=== PATIENT | female | born 1970 | race Caucasian/White ===

== ENCOUNTER 2016-09-11 18:20 | Emergency (ER) | payer OTHER ==
[2016-09-11] MEDS ORDERED: NITROGLYCERIN OINT 1 INCH/GM PACKET TOPICAL STA (18:30)
[2016-09-11] MEDS ORDERED: ONDANSETRON 4 MG/2 ML VIAL IVP STA (18:30)
[2016-09-11] MEDS ORDERED: SODIUM CHLORIDE 0.9% 1,000 ML IV STA (18:30)
[2016-09-11] MEDS ORDERED: MORPHINE SULFATE 4 MG/ML SYRINGE IV STA (18:30)
[2016-09-11 18:31] VITALS: TEMP 98.1
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
[2016-09-11 18:45] LABS: Basophils # (A) 0.1 k/uL (0-0.2); Basophils % (A) 1 %; CH 27.8; CHCM 33.6; Eosinophils # (A) 0.2 k/uL (0-0.7); Eosinophils % (A) 2 %; HCT 37.4 % (34.0-46.0); HDW 3.16; HGB 12.2 gm/dL (11.4-16.0); Luc # (Auto) 0.11; Luc % (Auto) 1; Lymphocytes # (A) 1.5 k/uL (1.0-4.8); Lymphocytes % (A) 18 %; MCH 27.2 pg (25.0-35.0); MCHC 32.7 g/dL (31.0-37.0); MCV 83.2 fL (80.0-100.0); Mean Platelet Volume 7.2; Monocytes # (A) 0.4 k/uL (0-1.0); Monocytes % (A) 5 %; Neutrophils % (A) 73 %; RDW 14.1 % (11.5-15.5); WBC 8.2 k/uL (3.8-10.6); WBC (Perox) 8.64
[2016-09-11 18:53] LABS: ALT 40 U/L (9-52); AST 36 U/L (14-36); Alkaline Phosphatase 90 U/L (38-126); Amylase <30 U/L (30-110); Anion Gap 12 mmol/L; Blood Urea Nitrogen 12 mg/dL (7-17); Calcium 9.5 mg/dL (8.4-10.2); Carbon Dioxide 30 mmol/L (22-30); Chloride 99 mmol/L (98-107); Glucose 126 mg/dL (74-99); Magnesium 1.5 mg/dL (1.6-2.3); Non-African American GFR(MDRD) >60 (>60 ml/min/1.73 sqM); Potassium 3.9 mmol/L (3.5-5.1); Sodium 141 mmol/L (137-145); Total Bilirubin 0.6 mg/dL (0.2-1.3)
--- NOTE | 2016-09-11 19:06 | XR ---
EXAMINATION TYPE: XR chest 2V DATE OF EXAM: 09/11/2016 6:54 PM COMPARISON: 04/28/2016 HISTORY: Chest pain TECHNIQUE: Frontal and lateral views of the chest are obtained. FINDINGS: There is no heart failure nor confluent pneumonic infiltrate. Costophrenic angles are sanchez r. There are no hilar masses. Bony thorax is intact. Exam is limited by patient's size. IMPRESSION: No active cardiopulmonary disease. No change.
[2016-09-11 19:07] LABS: Creatine Kinase 43 U/L (30-135)
--- NOTE | 2016-09-11 19:07 | XR ---
EXAMINATION TYPE: XR KUB DATE OF EXAM: 09/11/2016 6:54 PM COMPARISON: NONE HISTORY: Abdominal pain TECHNIQUE: 2 views FINDINGS: Bowel gas pattern is normal. There is no sign of intestinal obstruction or pneumoperitoneum . Fecal pattern is normal. There are clips from cholecystectomy. There is no evidence of a mass. I se e no pathologic calcifications over the kidneys. IMPRESSION: Nonacute abdomen.
[2016-09-11 19:10] LABS: INR 1.1 (<1.1); Prothrombin Time 10.7 sec (9.0-12.0)
[2016-09-11 19:20] LABS: Creatine Kinase MB 0.5 ng/mL (0.0-2.4); Troponin I <0.012 ng/mL (0.000-0.034)
[2016-09-11] MEDS ORDERED: MORPHINE SULFATE 4 MG/ML SYRINGE IVP STA (20:19)
[2016-09-11] MEDS ORDERED: HYDROmorphone 2 MG/ML 1 ML SYRINGE IVP STA (20:36)
[2016-09-11 21:36] VITALS: BP 138/84; PULSE 70; RESP 14
== END 2016-09-11 21:35 | disposition home or self-care (01) ==
LOC: EC 18:20
DX: R07.89 Other chest pain (principal); E66.01 Morbid (severe) obesity due to excess calories; E11.40 Type 2 diabetes mellitus with diabetic neuropathy, unspecified; I10 Essential (primary) hypertension; K21.9 Gastro-esophageal reflux disease without esophagitis; E88.81 Metabolic syndrome and other insulin resistance; F41.0 Panic disorder [episodic paroxysmal anxiety]; F32.9 Major depressive disorder, single episode, unspecified; F41.9 Anxiety disorder, unspecified; Z79.02 Long term (current) use of antithrombotics/antiplatelets; Z79.84 Long term (current) use of oral hypoglycemic drugs; Z79.4 Long term (current) use of insulin; Z79.899 Other long term (current) drug therapy; Z91.041 Radiographic dye allergy status; Z87.891 Personal history of nicotine dependence
CPT/HCPCS: 36415; 93005; 85379; 83880; 80053; 82150; 82550; 82553; 83690; 83735; 84484; 85025; 85610; 85730; 71020; 74000; 99285; 96374; 96375; 96361 ×3; J2270; J2405

== ENCOUNTER 2016-11-06 12:18 | Observation (INO) | payer OTHER ==
[2016-11-06] MEDS ORDERED: LORazepam 2 MG/ML SYRINGE IV STA (13:11)
[2016-11-06] MEDS ORDERED: SODIUM CHLORIDE 0.9% 1,000 ML IV STA ×4 (13:11→17:49)
[2016-11-06] MEDS ORDERED: FAMOTIDINE 20 MG/2 ML VIAL IV STA (13:11)
[2016-11-06] MEDS ORDERED: RX INFO: IV CONTRAST WAS GIVEN 1 EACH MISC MISCELLANE PRN (13:20)
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
[2016-11-06 13:54] LABS: Basophils % (A) 0 %; CH 26.7; CHCM 31.4; Eosinophils % (A) 0 %; HCT 39.7 % (34.0-46.0); HDW 3.03; HGB 12.5 gm/dL (11.4-16.0); Hypochromasia Slight; Luc # (Auto) 0.04; Luc % (Auto) 1; Lymphocytes # (A) 0.5 k/uL (1.0-4.8); Lymphocytes % (A) 8 %; MCH 26.8 pg (25.0-35.0); MCHC 31.4 g/dL (31.0-37.0); MCV 85.4 fL (80.0-100.0); Mean Platelet Volume 6.6; Monocytes # (A) 0.1 k/uL (0-1.0); Monocytes % (A) 2 %; Neutrophils # (A) 5.3 k/uL (1.3-7.7); Neutrophils % (A) 89 %; RBC 4.65 m/uL (3.80-5.40); RDW 14.3 % (11.5-15.5); WBC (Perox) 6.54
[2016-11-06 14:06] LABS: ALT 26 U/L (9-52); AST 27 U/L (14-36); Alkaline Phosphatase 101 U/L (38-126); Anion Gap 15 mmol/L; Blood Urea Nitrogen 14 mg/dL (7-17); Carbon Dioxide 20 mmol/L (22-30); Chloride 101 mmol/L (98-107); Glucose 444 mg/dL (74-99); Magnesium 1.6 mg/dL (1.6-2.3); Non-African American GFR(MDRD) >60 (>60 ml/min/1.73 sqM); Potassium 4.6 mmol/L (3.5-5.1); Sodium 136 mmol/L (137-145); Total Bilirubin 0.6 mg/dL (0.2-1.3); Total Protein 7.4 g/dL (6.3-8.2)
[2016-11-06] MEDS ORDERED: ACETAMINOPHEN IV (For NPO) 1,000 MG in SALINE 100 100ML.BAG IVPB STA (14:13)
[2016-11-06 14:14] LABS: INR 1.1 (<1.1); Prothrombin Time 10.7 sec (9.0-12.0)
[2016-11-06 14:16] LABS: Creatine Kinase 57 U/L (30-135)
[2016-11-06 14:25] LABS: Partial Thromboplastin Time 19.4 sec (22.0-30.0)
--- NOTE | 2016-11-06 14:25 | XR ---
EXAMINATION TYPE: XR chest 2V DATE OF EXAM: 11/06/2016 2:19 PM COMPARISON: 09/11/2016 HISTORY: Chest pain TECHNIQUE: Frontal and lateral views of the chest are obtained. FINDINGS: There is no focal air space opacity, pleural effusion, or pneumothorax seen. The cardiac silhouette size is mildly prominent. The osseous structures are intact. IMPRESSION: No acute cardiopulmonary process.
[2016-11-06 14:29] LABS: Creatine Kinase MB 0.6 ng/mL (0.0-2.4); Troponin I <0.012 ng/mL (0.000-0.034)
--- NOTE | 2016-11-06 15:10 | CT ---
EXAMINATION TYPE: CT ChestAbdPelvis w con DATE OF EXAM: 11/06/2016 2:56 PM COMPARISON: NONE HISTORY: Pelvic pain with history of fibroids. Mid chest pain with right axillary lump. CT DLP: 2246.00 mGycm Automated exposure control for dose reduction was used. CONTRAST: CT scan of the chest, abdomen and pelvis is performed without Oral Contrast and with IV Contrast, pat ient injected with 100 mL of Omnipaque 300. FINDINGS: LUNGS: Groundglass changes are seen in the right upper lobe. No pleural effusion or pneumothorax. MEDIASTINUM: There are no greater than 1 cm hilar or mediastinal lymph nodes. No pericardial effusi on is seen. OTHER: Shotty adenopathy in the axilla bilaterally. LIVER/GB: Previous cholecystectomy noted.. PANCREAS: No significant abnormality is seen. SPLEEN: No significant abnormality is seen. ADRENALS: No significant abnormality is seen. KIDNEYS: No significant abnormality is seen. BOWEL: No significant abnormality is seen. LYMPH NODES: No greater than 1 cm abdominal or pelvic lymph nodes are appreciated. Shotty adenopathy in the peripancreatic region OSSEOUS STRUCTURES: No significant abnormality is seen. OTHER: There is subcutaneous edema correlate for anasarca. There is a degree of lobulation of the [place] sheila. As a small fibroid not excluded. IMPRESSION: 1. Groundglass changes right upper lobe could been the basis of the alveolitis or pneumonitis. 2. Subcutaneous edema is nonspecific. Most marked findings are seen overlying the anterior abdominal wall. Correlate clinically. 3. 2 cm left thyroid nodule
[2016-11-06] MEDS ORDERED: NITROGLYCERIN SL TABS 0.4 MG TAB SUBLINGUAL STA (15:35)
[2016-11-06] MEDS ORDERED: INSULIN LISPRO (humaLOG) 300 UNIT/3 ML VIAL SQ ONE (15:43)
[2016-11-06 15:45] LABS: Glucose,Whole Blood 344 mg/dL (75-99)
[2016-11-06] MEDS ORDERED: HYDROmorphone 1 MG/ML 1 ML SYRINGE IVP STA (16:12)
[2016-11-06 17:30] LABS: Glucose,Whole Blood 272 mg/dL (75-99)
[2016-11-06] MEDS ORDERED: SODIUM CHLORIDE 0.9% 1,000 ML IV ONE (17:44)
[2016-11-06] MEDS ORDERED: HEPARIN SODIUM,PORCINE 5,000 UNIT/ML 1 ML VIAL IV ONE (17:44)
[2016-11-06] MEDS ORDERED: NITROGLYCERIN SL TABS 0.4 MG TAB SUBLINGUAL PRN (17:44)
[2016-11-06] MEDS ORDERED: HEPARIN SODIUM,PORCINE/D5W PMX 25,000 UNIT in DEXTROSE/WATER 1 500ML.BAG IV SCH (17:45)
[2016-11-06] MEDS ORDERED: ASPIRIN 81 MG CHEW PO STA (17:48)
[2016-11-06 20:46] VITALS: BMI 43.2
[2016-11-06 20:51] LABS: Creatine Kinase 51 U/L (30-135)
[2016-11-06 21:04] LABS: Creatine Kinase MB 0.7 ng/mL (0.0-2.4); Troponin I <0.012 ng/mL (0.000-0.034)
[2016-11-06 22:36] LABS: Glucose,Whole Blood 205 mg/dL (75-99)
[2016-11-06] MEDS ORDERED: ONDANSETRON ODT 4 MG TAB PO PRN (22:54)
[2016-11-06] MEDS ORDERED: diphenhydrAMINE 50 MG CAP PO PRN (22:54)
[2016-11-06] MEDS ORDERED: LORATADINE 10 MG TAB PO SCH (23:00)
[2016-11-06] MEDS ORDERED: MELATONIN 3 MG TABLET PO SCH (23:00)
[2016-11-06] MEDS ORDERED: predniSONE 50 MG TAB PO SCH (23:00)
[2016-11-06] MEDS ORDERED: ATENOLOL 50 MG TAB PO SCH (23:00)
[2016-11-06] MEDS ORDERED: MONTELUKAST 10 MG TAB PO SCH (23:00)
[2016-11-06] MEDS: INSULIN LISPRO (humaLOG) 300 UNIT/3 ML VIAL SQ SCH (23:06)
[2016-11-06] MEDS: ATENOLOL 50 MG TAB PO SCH (23:14)
[2016-11-07 03:10] LABS: Cholesterol 242 mg/dL (<200); HDL Cholesterol 37 mg/dL (40-60); Triglycerides 110 mg/dL (<150)
[2016-11-07 03:21] LABS: Creatine Kinase 43 U/L (30-135)
[2016-11-07 03:35] LABS: Creatine Kinase MB 0.6 ng/mL (0.0-2.4); Troponin I <0.012 ng/mL (0.000-0.034)
[2016-11-07 07:21] LABS: Glucose,Whole Blood 153 mg/dL (75-99)
[2016-11-07] MEDS ORDERED: INSULIN REGULAR 100 UNIT/ML VIAL SQ SCH ×3 (07:30→17:30)
[2016-11-07] MEDS ORDERED: NON-FORMULARY DRUG (Metformin Hcl Er 500 MG) PO SCH (07:30)
--- NOTE | 2016-11-07 08:31 | CONS ---
DATE OF CONSULTATION: Mrs. Andrade is a 46-year-old female who presented with what was thought to be a reaction to a CAT scan. Patient was scheduled to undergo an abdominal CAT scan, received prednisone, had the CAT scan but then subsequently started to have episode of palpitation, dizziness, dyspnea, as well as chest discomfort. She was brought into the emergency room and subsequently admitted. At the time of my evaluation, she is feeling better. The chest discomfort and the palpitations have resolved. Patient had prior episode of chest discomfort on and off and had stress testing that were normal but because of persistent symptoms in February 2015, she underwent cardiac catheterization that revealed no evidence of obstructive coronary artery disease. Patient is not very active physically, but has some dyspnea on exertion. No syncope. No significant peripheral edema. No PND. No orthopnea. She has palpitation at times. Her last echocardiogram performed in December 2015 revealed a preserved left ventricular size and systolic function. Her coronary risk factors are positive for history of hypertension, diabetes and hyperlipidemia, and a family history of coronary artery disease. Her medications at home include: 1. Requip. 2. Glucophage. 3. Carafate. 4. Actos. 5. Singulair. 6. Robaxin. 7. Losartan 25 mg daily. 8. Insulin. 9. Neurontin. 10. Cymbalta. 11. Plavix. 12. Tenormin 50 mg twice a day. REVIEW OF SYSTEMS: RESPIRATORY SYSTEM: She has some dyspnea on exertion. No recent wheezing. No cough. GI: No recent GI bleeding. She has some abdominal discomfort and that is why she underwent a CAT scan. system: No dysuria or hematuria. Nervous system: Questionable history of TIA. PHYSICAL EXAMINATION: She is a 46-year-old female, alert, oriented, obese. No apparent distress. Blood pressure 138/72 with a heart in the 80s. HEAD: Normocephalic. EYES: Sclerae anicteric. NECK: Good upstroke. No bruit. No jugular venous distention. LUNGS: Clear to auscultation. HEART: Regular rate and rhythm. S1, S2, no S3, no S4, no murmur or rub. ABDOMEN: Soft, nontender, positive bowel sounds. No organomegaly. EXTREMITIES: No edema. Intact distal pulses. LAB DATA: EKG revealed sinus mechanism, normal axis and intervals. Normal electrocardiogram. The patient had sinus tachycardia in the emergency room. Lab data revealed cholesterol of 242, LDL of 183. Troponin less than 0.012. BUN and creatinine of 14 and 0.81. Potassium 4.6. Hemoglobin A1c of 9.0. Hemoglobin of 12.5. IMPRESSION: 1. Her chest discomfort, atypical for ischemic heart disease; appears to be noncardiac. 2. Palpitation. Could be related to the injection, although no significant abnormalities noted. 3. Hypertension. 4. Hyperlipidemia not treated. 5. Diabetes mellitus. 6. Obesity. RECOMMENDATION: From the cardiac standpoint, I will stop the heparin I will initiate treatment with a statin, continue medical regimen. From the cardiac standpoint, she does not take any further cardiac work-up. We will see her on as needed basis. Please feel free to call us for any questions.
[2016-11-07] MEDS ORDERED: GABAPENTIN 400 MG CAP PO SCH (09:00)
[2016-11-07] MEDS ORDERED: ASPIRIN 325 MG TAB PO SCH (09:00)
[2016-11-07] MEDS ORDERED: CLOPIDOGREL 75 MG TAB PO SCH (09:00)
[2016-11-07] MEDS ORDERED: PIOGLITAZONE 30 MG TAB PO SCH (09:00)
[2016-11-07] MEDS ORDERED: ATORVASTATIN 40 MG TAB PO SCH (09:00)
[2016-11-07] MEDS ORDERED: SUCRALFATE 1 GM TAB PO SCH (09:00)
[2016-11-07] MEDS ORDERED: DULoxetine HCL 60 MG CAPSULE.DR PO SCH (09:00)
[2016-11-07] MEDS ORDERED: FAMOTIDINE 20 MG TAB PO SCH (09:00)
[2016-11-07] MEDS ORDERED: LORazepam 1 MG TAB PO SCH (09:00)
[2016-11-07] MEDS ORDERED: DICYCLOMINE 10 MG CAP PO SCH (09:00)
[2016-11-07] MEDS ORDERED: LOSARTAN 25 MG TAB PO SCH (09:00)
[2016-11-07] MEDS ORDERED: METHOCARBAMOL 500 MG TAB PO SCH (09:00)
[2016-11-07] MEDS: ATENOLOL 50 MG TAB PO SCH (09:05)
[2016-11-07] MEDS: INSULIN LISPRO (humaLOG) 300 UNIT/3 ML VIAL SQ SCH ×2 (09:08→12:37)
[2016-11-07 11:52] LABS: Glucose,Whole Blood 212 mg/dL (75-99)
[2016-11-07 12:39] VITALS: BP 108/69; PULSE 68; RESP 16; TEMP 97.5
--- NOTE | 2016-11-07 15:49 | P.HPIM ---
History of Present Illness H&P Date: 11/07/16 Chief Complaint: palpitations and chest pain this would be both an H&P and discharge summary This is a pleasant 46-year-old lady patient of Dr. Langley, Dr. Chang , S/P Kiran, she has underlying history of diabetes mellitus type 2, hypertension, hyperlipidemia, GERD obstructive sleep apnea admitted to the hospital secondary to palpitations and chest pain dizziness. Patient underwent CAT scan of the abdomen and pelvis to evaluate an abdominal mass as found by her METAL SORTER, she required premedication to include Benadryl and prednisone, she was brought into the emergency room after she complained of having chest pain palpitations dizziness and chest discomfort. Upon seeing the ER physician. Patient has all the symptoms resolved, however due to her risk she was admitted to evaluate for unstable angina with cardiology consultation. She had a previous stress test in 2014 that was normal she also underwent a cardiac cath at that time which shows no coronary obstructive disease She'll be seen by Dr. Chang during her observation stay here in the emergency room her blood sugarwas 444, ketones negative, CO2 of 20, this is after on his own dosing was initiated, she had completed a CAT scan of the abdomen and pelvis for the procedure as requested by her METAL SORTER. Hemoglobin A1c of 9.0 Review of Systems Constitutional: Reports as per HPI, Denies anorexia, Denies chills, Denies chronic headaches, Denies chronic pain, Denies daytime sleepiness, Denies fatigue, Denies fever, Denies lethargy, Denies malaise, Denies night sweats, Denies poor appetite, Denies sweats, Denies weakness, Denies weight gain, Denies weight loss Ears, nose, mouth and throat: Reports as per HPI, Denies ant. neck pain, Denies bleeding gums, Denies dental pain, Denies dysphagia, Denies epistaxis, Denies headache, Denies hoarseness, Denies mouth pain, Denies nasal congestion, Denies nasal discharge, Denies neck fullness/pressure, Denies neck lump, Denies nose pain, Denies odynophagia, Denies post-nasal drip, Denies sinus pain, Denies sinus pressure, Denies swelling in mouth, Denies swelling in throat, Denies sore throat, Denies vertigo, Denies voice changes Cardiovascular: Reports as per HPI, Reports chest pain, Reports palpitations, Denies claudication, Denies decreased exercise tolerance, Denies dyspnea on exertion, Denies edema, Denies high blood pressure, Denies irregular heart beat , Denies leg edema, Denies lightheadedness, Denies orthopnea, Denies paroxysmal nocturnal dyspnea, Denies phlebitis, Denies rapid heart beat, Denies shortness of breath, Denies syncope Respiratory: Reports as per HPI, Denies congestion, Denies cough, Denies cough with sputum, Denies dyspnea, Denies excessive sputum, Denies hemoptysis, Denies home oxygen, Denies pain, Denies pain on inspiration, Denies pleurisy, Denies respiratory infections, Denies sleep apnea, Denies snoring, Denies wheezing Gastrointestinal: Reports as per HPI, Denies abdominal pain, Denies belching, Denies bloating, Denies BRBPR, Denies change in bowel habits, Denies coffee ground emesis, Denies constipation, Denies diarrhea, Denies dyspepsia, Denies early satiety, Denies excessive gas, Denies heartburn, Denies hematemesis, Denies hematochezia, Denies indigestion, Denies jaundice, Denies lactose intolerance, Denies loss of appetite, Denies melena, Denies nausea, Denies vomiting Genitourinary: Reports as per HPI, Denies abnormal vaginal bleeding, Denies decreased libido, Denies difficulty conceiving, Denies difficulty voiding, Denies dysmenorrhea, Denies dyspareunia, Denies dysuria, Denies flank pain, Denies genital sores, Denies hematuria, Denies hot flashes, Denies incomplete emptying, Denies kidney stones, Denies menorrhagia, Denies mixed incontinence, Denies nocturia, Denies pelvic pain, Denies post void dribbling, Denies , Denies prolapse symptoms, Denies stress incontinence, Denies urge incontinence , Denies urgency, Denies urinary frequency, Denies vaginal discharge, Denies vaginal dryness, Denies vaginal itching, Denies vaginal odor Menstruation: Reports as per HPI, Denies amenorrhea, Denies amenorrhea on BC, Denies currently menstrual, Denies cycle < 21 days, Denies cycle > 35 days, Denies cycle variable, Denies menses 1-7 days, Denies menses 8 or > days, Denies menses variable, Denies period heavy, Denies period light, Denies period normal, Denies period spotting, Denies post hysterectomy, Denies postmenopausal , Denies premenarcheal Musculoskeletal: Reports as per HPI, Denies arm numbness/tingling, Denies atrophy, Denies fractures, Denies frequent falls, Denies gait dysfunction, Denies hot joints, Denies leg numbness/tingling, Denies limitation of motion, Denies loss of height, Denies low back pain, Denies morning stiffness, Denies muscle cramps, Denies muscle weakness, Denies myalgias, Denies neck pain, Denies neck stiffness, Denies prior amputations, Denies redness of joints, Denies shooting arm pain, Denies shooting leg pain Integumentary: Reports as per HPI, Denies acne, Denies boils, Denies brittle nails, Denies change in hair/nails, Denies color changes, Denies darkening of skin, Denies depigmentation, Denies dryness, Denies foot/leg ulcers, Denies growths, Denies hirsutism, Denies lesions, Denies onychomycosis, Denies pruritus , Denies rash, Denies sores, Denies striae, Denies unusual bruising, Denies wounds Neurological: Reports as per HPI, Denies aphasia, Denies ataxia, Denies balance difficulties, Denies burning pain, Denies change in mentation, Denies change in smell/taste, Denies change in speech, Denies confusion, Denies convulsions, Denies double vision, Denies gait dysfunction, Denies head injury, Denies headaches, Denies hearing difficulties, Denies lack of coordination, Denies loss of vision, Denies memory loss, Denies migraines, Denies motor disturbance, Denies numbness, Denies paralysis, Denies paresthesias, Denies seizures, Denies sensory deficit, Denies spasticity, Denies syncope, Denies tic, Denies tingling , Denies transient paralysis, Denies tremors, Denies vertigo, Denies weakness, Denies visual changes Psychiatric: Reports as per HPI, Denies anhedonia, Denies anxiety, Denies anxiety attacks, Denies change in appetite, Denies change in libido, Denies change in sleep habits, Denies confusion, Denies depression, Denies difficulty concentrating, Denies disorientation, Denies hallucinations, Denies hopelessness , Denies hypersomnia, Denies insomnia, Denies irritability, Denies memory loss, Denies mood swings, Denies paranoia, Denies sadness/tearfulness, Denies sleep disturbances, Denies suicidal ideation Endocrine: Reports as per HPI, Denies cold intolerance, Denies deepening of the voice, Denies excessive sweating, Denies excessive thirst, Denies fatigue, Denies flushing, Denies heat intolerance, Denies high blood sugars, Denies increase in ring/shoe/hat size, Denies low blood sugars, Denies nocturia, Denies palpitations, Denies polydipsia, Denies polyphagia, Denies polyuria, Denies proptosis, Denies recent glucocorticoid use, Denies thyroid mass, Denies weight change Hematologic/Lymphatic: Reports as per HPI, Denies easy bleeding, Denies easy bruising, Denies lymphadenopathy, Denies lymphedema, Denies thrombophilia Allergic/Immunologic: Reports as per HPI, Denies allergic rhinitis, Denies anaphylaxis, Denies angioedema, Denies gluten intolerance, Denies persistent infections, Denies seasonal allergies, Denies urticaria, Denies wheezing Past Medical History Past Medical History: Diabetes Mellitus, GERD/Reflux, Hyperlipidemia, Hypertension, Neurologic Disorder, Sleep Apnea/CPAP/BIPAP, Syncope Additional Past Medical History / Comment(s): " lt warped cornea", recurrant c/p ,uti's. Psoriasis, neuropathy, DDD, bursitis left hip, fractured left knee, IBS , diabetic retinopathy, duodenal ulcer, migraines, chronic back pain," ringing in ears", intermittent blurry vision" History of Any Multi-Drug Resistant Organisms: None Reported Past Surgical History: Adenoidectomy, Cholecystectomy, Tonsillectomy Additional Past Surgical History / Comment(s): endoscopy, colonoscopy, D&C, carpal tunnel surgery left arm, LT ARM SX FOR "PINCHED NERVE", LT THUMB TRIGGER FINGER. Past Anesthesia/Blood Transfusion Reactions: No Reported Reaction Additional Past Anesthesia/Blood Transfusion Reaction / Comment(s): difficulty waking from aa Past Psychological History: Anxiety, Depression, Panic Disorder Additional Psychological History / Comment(s): PT STATED LIVES IN AN APT W/ 3 DOGS, 1 CAT, HAS 4 STEPS TO GET UP TO [employer] IN APT. 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 PT HAS A WALKWE, CPAP MACHINE A NEW RAISED TOILET/RALES. 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 Smoking Status: Former smoker Past Alcohol Use History: Occasional Additional Past Alcohol Use History / Comment(s): started smoking at age 13 smoked 1/2 ppd, quit in the early Past Drug Use History: Marijuana Additional Drug Use History / Comment(s): when younger smoked marijuana-none since the - Past Family History Father Family Medical History: Cancer, Congestive Heart Failure (CHF), CVA/TIA, Hypertension, Syncope Additional Family Medical History / Comment(s): 1992 Mother Family Medical History: Diabetes Mellitus, Hypertension, Osteoarthritis (OA) Additional Family Medical History / Comment(s): MURMUR Sister(s) Family Medical History: Diabetes Mellitus, Hypertension Additional Family Medical History / Comment(s): Depression Medications and Allergies Home Medications Medication Instructions Recorded Confirmed Type Ranitidine HCl 150 mg PO BID 04/26/15 11/14/16 History Loratadine [Claritin] 10 mg PO HS 12/18/15 11/14/16 History DULoxetine HCL [Cymbalta] 60 mg PO DAILY 04/28/16 11/14/16 History Insulin Regular [humuLIN R] 12 units SQ W/SUPPER 04/28/16 11/14/16 History Insulin Regular [humuLIN R] 14 units SQ W/BRKFST 04/28/16 11/14/16 History Insulin Regular [humuLIN R] 14 units SQ W/LUNCH 04/28/16 11/14/16 History Losartan [Cozaar] 25 mg PO DAILY 04/28/16 11/14/16 History Sucralfate [Carafate] 1 gm PO QID 04/28/16 11/14/16 History metFORMIN HCL ER [Glucophage Xr] 500 mg PO AC-BRKFST 04/28/16 11/14/16 History Atenolol [Tenormin] 50 mg PO BID 09/11/16 11/14/16 History Gabapentin [Neurontin] 400 mg PO TID 09/11/16 11/14/16 History LORazepam [Ativan] 2 mg PO BID 09/11/16 11/14/16 History Melatonin 3 mg PO HS 09/11/16 11/14/16 History Montelukast [Singulair] 10 mg PO HS 09/11/16 11/14/16 History Ondansetron Odt [Zofran ODT] 4 mg PO Q12H PRN 09/11/16 11/14/16 History metFORMIN HCL ER [Glucophage Xr] 1,000 mg PO PC-SUPPER 09/11/16 11/14/16 History Dicyclomine HCl 10 mg PO DAILY 11/06/16 11/14/16 History Fluticasone Nasal [place] [Flonase 1 spray EA NOSTRIL HS 11/06/16 11/14/16 History Nasal [place]] Methocarbamol [Robaxin] 500 mg PO QID 11/06/16 11/14/16 History Pioglitazone HCl [Actos] 30 mg PO DAILY 11/06/16 11/14/16 History Azithromycin [Zithromax Z-pack] See Taper PO DIRECTED 11/14/16 11/14/16 History Beclomethasone Dipropionate [Qvar 1 puff INHALATION RT-DAILY 11/14/16 11/14/16 History 40 mcg] Allergies Allergy/AdvReac Type Severity Reaction Status Date / Time Iodinated Contrast Media - Allergy Itching Verified 11/14/16 19:09 Oral and [Iodinated Contrast Media - IV Dye] iodine Allergy Rash/Hives, Verified 11/14/16 19:09 ITCHING prednisone Allergy Rapid Verified 11/14/16 19:14 Heart Rate celecoxib [From Celebrex] AdvReac CAUSES GI Verified 11/14/16 19:09 BLEEDING cephalexin monohydrate AdvReac Vomiting Verified 11/14/16 19:09 [From Keflex] hydrocodone AdvReac Nausea & Verified 11/14/16 19:09 Vomiting Penicillins AdvReac Nausea & Verified 11/14/16 19:09 Vomiting Physical Exam Vitals: Vital Signs Temp Pulse Pulse Resp BP Pulse Ox 11/07/16 08:00 97.6 F 75 18 111/80 100 11/07/16 05:35 77 16 11/07/16 04:00 98 F 80 16 138/78 100 11/07/16 00:13 99 16 11/07/16 00:00 97.8 F 86 16 143/76 100 11/06/16 23:41 98 11/06/16 19:20 98.2 F 140 H 16 183/99 98 Intake and Output 11/06/16 11/07/16 11/07/16 22:59 06:59 14:59 Intake Total 212.333 Balance 212.333 Intake: Intake, IV Titration 212.333 Amount Heparin Sodium,Porcine/ 212.333 D5w Pmx 25,000 unit In Dextrose/Water 1 500ml. bag @ 8.749 UNITS/KG/HR 20 mls/hr IV .Q24H [facility] Rx #:[id number] Other: Voiding Method Toilet Toilet # Voids 1 Weight 114.31 kg 114.31 kg Patient Weight 11/08/16 06:59 Weight 114.31 kg - Constitutional General appearance: cooperative, no acute distress - EENT Eyes: anicteric sclerae, PERRLA ENT: hearing grossly normal, NA/AT, normal oropharynx Ears: bilateral: normal, negative: bulging, bullous, dull - Neck Neck: no lymphadenopathy, normal ROM, no other, no rigidity, no stridor, no thyromegaly Carotids: bilateral: upstroke normal, negative: upstroke delayed, upstroke diminished, upstroke bounding, bruit absent, bruit present Thyroid: bilateral: normal size - Respiratory Respiratory: bilateral: CTA, negative: diminished, dullness, rales, rhonchi - Cardiovascular Rhythm: regular Heart sounds: normal: S1, S2 - Gastrointestinal General gastrointestinal: no absent bowel sounds, no decreased bowel sounds, no distended, no hepatomegaly, no hyperactive bowel sounds, normal bowel sounds, no organomegaly, no rigid, no scaphoid, soft, no splenomegaly, no tenderness, no umbilical hernia, no ventral hernia - Integumentary Integumentary: normal, normal turgor - Neurologic Neurologic: CNII-XII intact - Musculoskeletal Musculoskeletal: gait normal, strength equal bilaterally - Psychiatric Psychiatric: A&O x's 3, appropriate affect, intact judgment & insight Results CBC & Chem 7: 11/06/16 13:34 11/06/16 13:34 Labs: Abnormal Lab Results - Last 24 Hours (Table) 11/06/16 11/07/16 11/07/16 Range/Units 22:34 02:19 07:09 POC Glucose (mg/dL) 205 H 153 H (75-99) mg/dL Cholesterol 242 H (<200) mg/dL LDL Cholesterol, Calc 183 H (0-99) mg/dL HDL Cholesterol 37 L (40-60) mg/dL 11/07/16 Range/Units 11:51 POC Glucose (mg/dL) 212 H (75-99) mg/dL Cholesterol (<200) mg/dL LDL Cholesterol, Calc (0-99) mg/dL HDL Cholesterol (40-60) mg/dL Laboratory Results WBC 6.0 k/uL (3.8-10.6) 11/06/16 13:34 RBC 4.65 m/uL (3.80-5.40) 11/06/16 13:34 Hgb 12.5 gm/dL (11.4-16.0) 11/06/16 13:34 Hct 39.7 % (34.0-46.0) 11/06/16 13:34 MCV 85.4 fL (80.0-100.0) 11/06/16 13:34 MCH 26.8 pg (25.0-35.0) 11/06/16 13:34 MCHC 31.4 g/dL (31.0-37.0) 11/06/16 13:34 RDW 14.3 % (11.5-15.5) 11/06/16 13:34 Plt Count 202 k/uL (150-450) 11/06/16 13:34 Neutrophils % 89 % 11/06/16 13:34 Lymphocytes % 8 % 11/06/16 13:34 Monocytes % 2 % 11/06/16 13:34 Eosinophils % 0 % 11/06/16 13:34 Basophils % 0 % 11/06/16 13:34 Neutrophils # 5.3 k/uL (1.3-7.7) 11/06/16 13:34 Lymphocytes # 0.5 k/uL (1.0-4.8) L 11/06/16 13:34 Monocytes # 0.1 k/uL (0-1.0) 11/06/16 13:34 Eosinophils # 0.0 k/uL (0-0.7) 11/06/16 13:34 Basophils # 0.0 k/uL (0-0.2) 11/06/16 13:34 Hypochromasia Slight 11/06/16 13:34 PT 10.7 sec (9.0-12.0) 11/06/16 13:34 INR 1.1 (<1.1) 11/06/16 13:34 APTT 28.5 sec (22.0-30.0) 11/07/16 02:19 Sodium 136 mmol/L (137-145) L 11/06/16 13:34 Potassium 4.6 mmol/L (3.5-5.1) 11/06/16 13:34 Chloride 101 mmol/L (98-107) 11/06/16 13:34 Carbon Dioxide 20 mmol/L (22-30) L 11/06/16 13:34 Anion Gap 15 mmol/L 11/06/16 13:34 BUN 14 mg/dL (7-17) 11/06/16 13:34 Creatinine 0.81 mg/dL (0.52-1.04) 11/06/16 13:34 Est GFR (MDRD) Af Amer >60 (>60 ml/min/1.73 sqM) 11/06/16 13:34 Est GFR (MDRD) Non-Af >60 (>60 ml/min/1.73 sqM) 11/06/16 13:34 Glucose 444 mg/dL (74-99) H 11/06/16 13:34 POC Glucose (mg/dL) 212 mg/dL (75-99) H 11/07/16 11:51 POC Glu Wire Mesh Filter Fabricator JENNIFER Cholo Pruittn 11/07/16 11:[address] Glu mg/dL 212 mg/dL 11/06/16 13:34 Hemoglobin A1c 9.0 % (4.2-6.1) H 11/06/16 13:34 Calcium 9.0 mg/dL (8.4-10.2) 11/06/16 13:34 Magnesium 1.6 mg/dL (1.6-2.3) 11/06/16 13:34 Total Bilirubin 0.6 mg/dL (0.2-1.3) 11/06/16 13:34 AST 27 U/L (14-36) 11/06/16 13:34 ALT 26 U/L (9-52) 11/06/16 13:34 Alkaline Phosphatase 101 U/L (38-126) 11/06/16 13:34 Total Creatine Kinase 43 U/L (30-135) 11/07/16 02:19 CK-MB (CK-2) 0.6 ng/mL (0.0-2.4) 11/07/16 02:19 CK-MB (CK-2) Rel Index 1.4 11/07/16 02:19 Troponin I <0.012 ng/mL (0.000-0.034) 11/07/16 02:19 Total Protein 7.4 g/dL (6.3-8.2) 11/06/16 13:34 Albumin 4.0 g/dL (3.5-5.0) 11/06/16 13:34 Triglycerides 110 mg/dL (<150) 11/07/16 02:19 Cholesterol 242 mg/dL (<200) H 11/07/16 02:19 LDL Cholesterol, Calc 183 mg/dL (0-99) H 11/07/16 02:19 HDL Cholesterol 37 mg/dL (40-60) L 11/07/16 02:19 TSH 0.395 mIU/L (0.465-4.680) L 11/06/16 13:34 Free T4 1.30 ng/dL (0.78-2.19) 11/06/16 13:34 Thrombosis Risk Factor Assmnt - DVT/VTE Prophylaxis DVT/VTE Prophylaxis: Mechanical Prophylaxis ordered Assessment and Plan Plan: atypical chest pain with palpitations, most likely secondary to premedication prednisone and Benadryl as well as the hyperglycemia that occurred using the prednisone dose, patient's symptoms has improved patient was seen consultation by cardiology. Troponins 3 were negative,. She was seen in consultation by cardiology for which statins were initiated for her medical regimen, no additional cardiac testing was requested at this timecontinue Plavix Lipitor Tenorminaspirin 2. Hyperosmolar nonketotic hyperglycemia related to prednisone dosing for premedications without the necessary adjustment for her insulin made by her PCP , patient's sugar has improved and stabilized,she required her home dosing with NovoLog correctional scale shins appetite is at baseline patient will be discharged with her regulainsulin regimen, blood sugar and discharge was 212, hemoglobin A1c 9.0r 3. Uncontrolled diabetes mellitus type 2, patient was counseled regarding dietary modification and is to talk to her adjustments of her regimen for sugarscontinue Actos metformin NovoLog pre-meal 14 units breakfast 14 units lunch 17 units supper, 4. Metabolicacidosis, mild most likely secondary to the hyperglycemia, this has stabilized and improvedno ketones 4. Hypertension on cozaar tenormin 5. GERD on chronic ranitidineor Carafate 6.pneumonitis incidentally noted on CAT scan patient sees Dr. Vásquez/P Kiran, continue Singulair 7depression and anxiety on Cymbalta Ativan 8. BMI 43 Discharge Medication List Ranitidine HCl 150 mg PO BID 04/26/15 [History] Clopidogrel [Plavix] 75 mg PO DAILY #30 tab 06/29/15 [Rx] Loratadine [Claritin] 10 mg PO HS 12/18/15 [History] DULoxetine HCL [Cymbalta] 60 mg PO DAILY 04/28/16 [History] Insulin Regular [humuLIN R] 14 units SQ W/BRKFST 04/28/16 [History] Insulin Regular [humuLIN R] 14 units SQ W/LUNCH 04/28/16 [History] Insulin Regular [humuLIN R] 17 units SQ W/SUPPER 04/28/16 [History] Losartan [Cozaar] 25 mg PO DAILY 04/28/16 [History] Sucralfate [Carafate] 1 gm PO QID 04/28/16 [History] metFORMIN HCL ER [Glucophage Xr] 500 mg PO AC-BRKFST 04/28/16 [History] Atenolol [Tenormin] 50 mg PO BID 09/11/16 [History] Gabapentin [Neurontin] 400 mg PO TID 09/11/16 [History] LORazepam [Ativan] 2 mg PO BID 09/11/16 [History] Melatonin 3 mg PO HS 09/11/16 [History] Montelukast [Singulair] 10 mg PO HS 09/11/16 [History] Ondansetron Odt [Zofran ODT] 4 mg PO Q12H PRN 09/11/16 [History] metFORMIN HCL ER [Glucophage Xr] 1,000 mg PO PC-SUPPER 09/11/16 [History] Dicyclomine HCl 10 mg PO DAILY 11/06/16 [History] Fluticasone Nasal [place] [Flonase Nasal [place]] 1 spray EA NOSTRIL HS 11/06/16 [ History] Methocarbamol [Robaxin] 500 mg PO QID 11/06/16 [History] Pioglitazone HCl [Actos] 30 mg PO DAILY 11/06/16 [History] Aspirin EC [Ecotrin Low Dose] 81 mg PO DAILY #30 tablet. 11/07/16 [Rx] Atenolol [Tenormin] 50 mg PO BID #60 tab 11/07/16 [Rx] Atorvastatin [Lipitor] 40 mg PO DAILY #39 tab 11/07/16 [Rx]
[2016-11-07] MEDS ORDERED: METFORMIN HCL 1000 MG PO SCH (18:30)
[2016-11-07] MEDS ORDERED: FLUTICASONE 50MCG/SPRAY NASAL 16GM EA NOSTRIL SCH (21:00)
== END 2016-11-07 14:11 | disposition home or self-care (01) ==
LOC: EC 12:18 → 3OBS 17:43
PROVIDERS: ADMIT Family Medicine; ATTEND Family Medicine
DX: R07.89 Other chest pain (principal); R00.2 Palpitations; T38.0X5A Adverse effect of glucocorticoids and synthetic analogues, initial encounter; E11.65 Type 2 diabetes mellitus with hyperglycemia; E87.2 Acidosis; I10 Essential (primary) hypertension; K21.9 Gastro-esophageal reflux disease without esophagitis; J18.9 Pneumonia, unspecified organism; F32.9 Major depressive disorder, single episode, unspecified; F41.9 Anxiety disorder, unspecified; E04.1 Nontoxic single thyroid nodule; E11.319 Type 2 diabetes mellitus with unspecified diabetic retinopathy without macular edema; E66.9 Obesity, unspecified; E78.5 Hyperlipidemia, unspecified; F41.0 Panic disorder [episodic paroxysmal anxiety]; K58.9 Irritable bowel syndrome, unspecified; Z68.41 Body mass index [BMI] 40.0-44.9, adult; Z79.4 Long term (current) use of insulin; Z79.84 Long term (current) use of oral hypoglycemic drugs; Z79.899 Other long term (current) drug therapy; Z82.49 Family history of ischemic heart disease and other diseases of the circulatory system; Z87.11 Personal history of peptic ulcer disease; Z87.891 Personal history of nicotine dependence; Z91.041 Radiographic dye allergy status; R51 Headache; Z79.52 Long term (current) use of systemic steroids; R00.0 Tachycardia, unspecified
CPT/HCPCS: 36415; 93005; 84439; 80061; 80053; 84443; 83036; 82550 ×2; 82553 ×2; 83735; 84484 ×2; 85025; 85610; 85730 ×2; 71020; 71260; 74177; 99291; 96365; 96375; 96376; 96361; G0378 ×2; J2060; J1644 ×2; J1170; Q9967; J0131; 96366; 96367

== ENCOUNTER 2016-11-14 17:55 | Emergency (ER) | payer OTHER ==
[2016-11-14] MEDS ORDERED: MAGNESIUM SULFATE-D5W PMX 1 GM in DEXTROSE/WATER 1 100ML.BAG IVPB STA (18:02)
--- NOTE | 2016-11-14 18:08 | ED ---
SOB HPI - General Source: patient, EMS, RN notes reviewed, old records reviewed Mode of arrival: EMS Limitations: no limitations - History of Present Illness MD Complaint: shortness of breath, cough <Clifford Rene - Last Filed: 11/14/16 18:47> <Narendra Gamino - Last Filed: 11/14/16 22:05> - General Chief Complaint: Shortness of Breath Stated Complaint: SANTOS Time Seen by Provider: 11/14/16 17:55 - History of Present Illness Initial Comments: This is a 46-year-old female who states she was just discharged from the hospital week ago to being treated for pneumonia who states she's had shortness of breath is got progressively worse over last 3 days. She states she has some fevers and sweats. No definite chills EMS was finally called prior to arrival she was very dyspneic she did respond somewhat to 2 albuterol treatments. She has a cough but no definite phlegm production. No other complaints such as chest pain or abdominal pain at this time. She states she is not a smoker (Clifford Rene) - Related Data Home Medications Medication Instructions Recorded Confirmed Ranitidine HCl 150 mg PO BID 04/26/15 11/14/16 Loratadine [Claritin] 10 mg PO HS 12/18/15 11/14/16 DULoxetine HCL [Cymbalta] 60 mg PO DAILY 04/28/16 11/14/16 Insulin Regular [humuLIN R] 12 units SQ W/SUPPER 04/28/16 11/14/16 Insulin Regular [humuLIN R] 14 units SQ W/BRKFST 04/28/16 11/14/16 Insulin Regular [humuLIN R] 14 units SQ W/LUNCH 04/28/16 11/14/16 Losartan [Cozaar] 25 mg PO DAILY 04/28/16 11/14/16 Sucralfate [Carafate] 1 gm PO QID 04/28/16 11/14/16 metFORMIN HCL ER [Glucophage Xr] 500 mg PO AC-BRKFST 04/28/16 11/14/16 Atenolol [Tenormin] 50 mg PO BID 09/11/16 11/14/16 Gabapentin [Neurontin] 400 mg PO TID 09/11/16 11/14/16 LORazepam [Ativan] 2 mg PO BID 09/11/16 11/14/16 Melatonin 3 mg PO HS 09/11/16 11/14/16 Montelukast [Singulair] 10 mg PO HS 09/11/16 11/14/16 Ondansetron Odt [Zofran ODT] 4 mg PO Q12H PRN 09/11/16 11/14/16 metFORMIN HCL ER [Glucophage Xr] 1,000 mg PO PC-SUPPER 09/11/16 11/14/16 Dicyclomine HCl 10 mg PO DAILY 11/06/16 11/14/16 Fluticasone Nasal Climax [Flonase 1 spray EA NOSTRIL HS 11/06/16 11/14/16 Nasal Climax] Methocarbamol [Robaxin] 500 mg PO QID 11/06/16 11/14/16 Pioglitazone HCl [Actos] 30 mg PO DAILY 11/06/16 11/14/16 Azithromycin [Zithromax Z-pack] See Taper PO DIRECTED 11/14/16 11/14/16 Beclomethasone Dipropionate [Qvar 1 puff INHALATION RT-DAILY 11/14/16 11/14/16 40 mcg] Previous Rx's Medication Instructions Recorded Clopidogrel [Plavix] 75 mg PO DAILY #30 tab 06/29/15 Aspirin EC [Ecotrin Low Dose] 81 mg PO DAILY #30 tablet. 11/07/16 Atorvastatin [Lipitor] 40 mg PO DAILY #39 tab 11/07/16 Allergies Allergy/AdvReac Type Severity Reaction Status Date / Time Iodinated Contrast Media - Allergy Itching Verified 11/14/16 19:09 Oral and [Iodinated Contrast Media - IV Dye] iodine Allergy Rash/Hives, Verified 11/14/16 19:09 ITCHING prednisone Allergy Rapid Verified 11/14/16 19:14 Heart Rate celecoxib [From Celebrex] AdvReac CAUSES GI Verified 11/14/16 19:09 BLEEDING cephalexin monohydrate AdvReac Vomiting Verified 11/14/16 19:09 [From Keflex] hydrocodone AdvReac Nausea & Verified 11/14/16 19:09 Vomiting Penicillins AdvReac Nausea & Verified 11/14/16 19:09 Vomiting Review of Systems ROS Other: All systems not noted in ROS Statement are negative. <Clifford Rene - Last Filed: 11/14/16 18:47> ROS Other: All systems not noted in ROS Statement are negative. <Narendra Gamino - Last Filed: 11/14/16 22:05> ROS Statement: Those systems with pertinent positive or pertinent negative responses have been documented in the HPI. Past Medical History Past Medical History: Diabetes Mellitus, GERD/Reflux, Hyperlipidemia, Hypertension, Neurologic Disorder, Sleep Apnea/CPAP/BIPAP, Syncope Additional Past Medical History / Comment(s): " lt warped cornea", recurrant c/p ,uti's. Psoriasis, neuropathy, DDD, bursitis left hip, fractured left knee, IBS , diabetic retinopathy, duodenal ulcer, migraines, chronic back pain," ringing in ears", intermittent blurry vision" History of Any Multi-Drug Resistant Organisms: None Reported Past Surgical History: Adenoidectomy, Cholecystectomy, Tonsillectomy Additional Past Surgical History / Comment(s): endoscopy, colonoscopy, D&C, carpal tunnel surgery left arm, LT ARM SX FOR "PINCHED NERVE", LT THUMB TRIGGER FINGER. Past Anesthesia/Blood Transfusion Reactions: No Reported Reaction Additional Past Anesthesia/Blood Transfusion Reaction / Comment(s): difficulty waking from aa Past Psychological History: Anxiety, Depression, Panic Disorder Additional Psychological History / Comment(s): PT STATED LIVES IN AN APT W/ 3 DOGS, 1 CAT, HAS 4 STEPS TO GET UP TO [employer] IN APT. 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 PT HAS A WALKWE, CPAP MACHINE A NEW RAISED TOILET/RALES. 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 Smoking Status: Former smoker Past Alcohol Use History: Occasional Additional Past Alcohol Use History / Comment(s): started smoking at age 13 smoked 1/2 ppd, quit in the early Past Drug Use History: Marijuana Additional Drug Use History / Comment(s): when younger smoked marijuana-none since the a - Past Family History Father Family Medical History: Cancer, Congestive Heart Failure (CHF), CVA/TIA, Hypertension, Syncope Additional Family Medical History / Comment(s): 1992 Mother Family Medical History: Diabetes Mellitus, Hypertension, Osteoarthritis (OA) Additional Family Medical History / Comment(s): MURMUR Sister(s) Family Medical History: Diabetes Mellitus, Hypertension Additional Family Medical History / Comment(s): Depression <Clifford Rene - Last Filed: 11/14/16 18:47> General Exam Limitations: no limitations General appearance: alert, anxious, in distress Head exam: Present: atraumatic, normocephalic, normal inspection Eye exam: Present: normal appearance, PERRL, EOMI. Absent: scleral icterus, conjunctival injection, periorbital swelling ENT exam: Present: normal exam, mucous membranes moist Neck exam: Present: normal inspection. Absent: tenderness, meningismus, lymphadenopathy Respiratory exam: Present: respiratory distress, wheezes, rhonchi, decreased breath sounds. Absent: rales, stridor Cardiovascular Exam: Present: normal rhythm, tachycardia, normal heart sounds. Absent: systolic murmur, diastolic murmur, rubs, gallop, clicks GI/Abdominal exam: Present: soft, normal bowel sounds. Absent: distended, tenderness, guarding, rebound, rigid Extremities exam: Present: normal inspection, full ROM, normal capillary refill. Absent: tenderness, pedal edema, joint swelling, calf tenderness Back exam: Present: normal inspection Neurological exam: Present: alert, oriented X3, CN II-XII intact Psychiatric exam: Present: normal affect, normal mood Skin exam: Present: warm, dry, intact, normal color. Absent: rash <Clifford Rene - Last Filed: 11/14/16 18:47> <Narendra Gamino - Last Filed: 11/14/16 22:05> - General Exam Comments Initial Comments: This is a well up well-nourished awake alert anxious appearing female she is in obvious respiratory distress (Clifford Rene) Medical Decision Making - Lab Data Result diagrams: 11/14/16 18:05 11/14/16 18:05 - EKG Data -: EKG Interpreted by [facility] EKG shows normal: sinus rhythm (Sinus tachycardia rate 127 MA interval 136 QRS duration 82 QT/QTc is 310/450 poor R-wave progression no acute ST-T wave changes ) <Clifford Rene - Last Filed: 11/14/16 18:47> - Lab Data Result diagrams: 11/14/16 18:05 11/14/16 21:05 <Narendra Gamino - Last Filed: 11/14/16 22:05> - Medical Decision Making Patient's had symptoms for 2 and half days so he did not start Tamiflu. Patient temperature came down nicely patient was hydrated and we repeated labs and a lactic and potassium were back within normal range. I went back in and reevaluated the patient she was feeling much better and wanted to go home. (Narendra Gamino) - Lab Data Lab Results 11/14/16 11/14/16 11/14/16 Range/Units 18:05 18:05 18:05 WBC 9.5 (3.8-10.6) k/uL RBC 4.76 (3.80-5.40) m/uL Hgb 12.5 (11.4-16.0) gm/dL Hct 39.1 (34.0-46.0) % MCV 82.1 (80.0-100.0) fL MCH 26.3 (25.0-35.0) pg MCHC 32.0 (31.0-37.0) g/dL RDW 14.6 (11.5-15.5) % Plt Count 183 (150-450) k/uL Neutrophils % 75 % Lymphocytes % 17 % Monocytes % 5 % Eosinophils % 1 % Basophils % 0 % Neutrophils # 7.1 (1.3-7.7) k/uL Lymphocytes # 1.6 (1.0-4.8) k/uL Monocytes # 0.5 (0-1.0) k/uL Eosinophils # 0.1 (0-0.7) k/uL Basophils # 0.0 (0-0.2) k/uL PT (9.0-12.0) sec INR (<1.1) APTT (22.0-30.0) sec Sodium (137-145) mmol/L Potassium (3.5-5.1) mmol/L Chloride (98-107) mmol/L Carbon Dioxide (22-30) mmol/L Anion Gap mmol/L BUN (7-17) mg/dL Creatinine (0.52-1.04) mg/dL Est GFR (MDRD) Af Amer (>60 ml/min/1.73 sqM) Est GFR (MDRD) Non-Af (>60 ml/min/1.73 sqM) Glucose (74-99) mg/dL Plasma Lactic Acid Wil (0.7-2.0) mmol/L Calcium (8.4-10.2) mg/dL Magnesium (1.6-2.3) mg/dL Total Bilirubin (0.2-1.3) mg/dL AST (14-36) U/L ALT (9-52) U/L Alkaline Phosphatase (38-126) U/L Total Creatine Kinase 49 (30-135) U/L CK-MB (CK-2) 0.4 (0.0-2.4) ng/mL CK-MB (CK-2) Rel Index 0.8 Troponin I <0.012 (0.000-0.034) ng/mL NT-Pro-B Natriuret Pep 139 pg/mL Total Protein (6.3-8.2) g/dL Albumin (3.5-5.0) g/dL Influenza Type A RNA (Not Detectd) Influenza Type B (PCR) (Not Detectd) 11/14/16 11/14/16 11/14/16 Range/Units 18:05 18:05 18:05 WBC (3.8-10.6) k/uL RBC (3.80-5.40) m/uL Hgb (11.4-16.0) gm/dL Hct (34.0-46.0) % MCV (80.0-100.0) fL MCH (25.0-35.0) pg MCHC (31.0-37.0) g/dL RDW (11.5-15.5) % Plt Count (150-450) k/uL Neutrophils % % Lymphocytes % % Monocytes % % Eosinophils % % Basophils % % Neutrophils # (1.3-7.7) k/uL Lymphocytes # (1.0-4.8) k/uL Monocytes # (0-1.0) k/uL Eosinophils # (0-0.7) k/uL Basophils # (0-0.2) k/uL PT 11.5 (9.0-12.0) sec INR 1.1 (<1.1) APTT 25.3 (22.0-30.0) sec Sodium 135 L (137-145) mmol/L Potassium 5.7 H (3.5-5.1) mmol/L Chloride 95 L (98-107) mmol/L Carbon Dioxide 26 (22-30) mmol/L Anion Gap 14 mmol/L BUN 20 H (7-17) mg/dL Creatinine 1.00 (0.52-1.04) mg/dL Est GFR (MDRD) Af Amer >60 (>60 ml/min/1.73 sqM) Est GFR (MDRD) Non-Af 59 (>60 ml/min/1.73 sqM) Glucose 105 H (74-99) mg/dL Plasma Lactic Acid Wil 2.2 H* (0.7-2.0) mmol/L Calcium 8.9 (8.4-10.2) mg/dL Magnesium 1.4 L (1.6-2.3) mg/dL Total Bilirubin 1.0 (0.2-1.3) mg/dL AST 46 H (14-36) U/L ALT 35 (9-52) U/L Alkaline Phosphatase 68 (38-126) U/L Total Creatine Kinase (30-135) U/L CK-MB (CK-2) (0.0-2.4) ng/mL CK-MB (CK-2) Rel Index Troponin I (0.000-0.034) ng/mL NT-Pro-B Natriuret Pep pg/mL Total Protein 7.8 (6.3-8.2) g/dL Albumin 4.1 (3.5-5.0) g/dL Influenza Type A RNA (Not Detectd) Influenza Type B (PCR) (Not Detectd) 11/14/16 11/14/16 11/14/16 Range/Units 18:54 21:05 21:05 WBC (3.8-10.6) k/uL RBC (3.80-5.40) m/uL Hgb (11.4-16.0) gm/dL Hct (34.0-46.0) % MCV (80.0-100.0) fL MCH (25.0-35.0) pg MCHC (31.0-37.0) g/dL RDW (11.5-15.5) % Plt Count (150-450) k/uL Neutrophils % % Lymphocytes % % Monocytes % % Eosinophils % % Basophils % % Neutrophils # (1.3-7.7) k/uL Lymphocytes # (1.0-4.8) k/uL Monocytes # (0-1.0) k/uL Eosinophils # (0-0.7) k/uL Basophils # (0-0.2) k/uL PT (9.0-12.0) sec INR (<1.1) APTT (22.0-30.0) sec Sodium 132 L (137-145) mmol/L Potassium 3.5 (3.5-5.1) mmol/L Chloride 97 L (98-107) mmol/L Carbon Dioxide 25 (22-30) mmol/L Anion Gap 10 mmol/L BUN 19 H (7-17) mg/dL Creatinine 1.02 (0.52-1.04) mg/dL Est GFR (MDRD) Af Amer >60 (>60 ml/min/1.73 sqM) Est GFR (MDRD) Non-Af 58 (>60 ml/min/1.73 sqM) Glucose 79 (74-99) mg/dL Plasma Lactic Acid Wil 0.9 (0.7-2.0) mmol/L Calcium 7.9 L (8.4-10.2) mg/dL Magnesium (1.6-2.3) mg/dL Total Bilirubin 0.4 (0.2-1.3) mg/dL AST 24 (14-36) U/L ALT 32 (9-52) U/L Alkaline Phosphatase 70 (38-126) U/L Total Creatine Kinase (30-135) U/L CK-MB (CK-2) (0.0-2.4) ng/mL CK-MB (CK-2) Rel Index Troponin I (0.000-0.034) ng/mL NT-Pro-B Natriuret Pep pg/mL Total Protein 5.9 L (6.3-8.2) g/dL Albumin 3.1 L (3.5-5.0) g/dL Influenza Type A RNA Not Detected (Not Detectd) Influenza Type B (PCR) Detected H (Not Detectd) Disposition <Clifford Rene - Last Filed: 11/14/16 18:47> Time of Disposition: 22:04 <Narendra Gamino - Last Filed: 11/14/16 22:05> Clinical Impression: Influenza B Disposition: HOME SELF-CARE Instructions: Influenza (ED) Additional Instructions: Patient should keep hydrated at home. Patient should take Motrin and Tylenol for her fever. Referrals: Link Langley MD [Primary Care Provider] - 1-2 days
[2016-11-14 18:23] LABS: Basophils % (A) 0 %; CH 27.1; CHCM 33.2; Eosinophils # (A) 0.1 k/uL (0-0.7); Eosinophils % (A) 1 %; HCT 39.1 % (34.0-46.0); HDW 3.01; HGB 12.5 gm/dL (11.4-16.0); Luc # (Auto) 0.28; Luc % (Auto) 3; Lymphocytes # (A) 1.6 k/uL (1.0-4.8); Lymphocytes % (A) 17 %; MCH 26.3 pg (25.0-35.0); MCV 82.1 fL (80.0-100.0); Mean Platelet Volume 6.5; Monocytes # (A) 0.5 k/uL (0-1.0); Monocytes % (A) 5 %; Neutrophils # (A) 7.1 k/uL (1.3-7.7); Neutrophils % (A) 75 %; RBC 4.76 m/uL (3.80-5.40); RDW 14.6 % (11.5-15.5); WBC 9.5 k/uL (3.8-10.6); WBC (Perox) 9.33
[2016-11-14 18:30] LABS: ALT 35 U/L (9-52); AST 46 U/L (14-36); Alkaline Phosphatase 68 U/L (38-126); Anion Gap 14 mmol/L; Blood Urea Nitrogen 20 mg/dL (7-17); Calcium 8.9 mg/dL (8.4-10.2); Carbon Dioxide 26 mmol/L (22-30); Chloride 95 mmol/L (98-107); Glucose 105 mg/dL (74-99); Magnesium 1.4 mg/dL (1.6-2.3); Non-African American GFR(MDRD) 59 (>60 ml/min/1.73 sqM); Potassium 5.7 mmol/L (3.5-5.1); Sodium 135 mmol/L (137-145); Total Protein 7.8 g/dL (6.3-8.2)
--- NOTE | 2016-11-14 18:30 | XR ---
EXAMINATION TYPE: XR chest 2V DATE OF EXAM: 11/14/2016 6:20 PM COMPARISON: 11/06/2016 HISTORY: Short of breath and congestion TECHNIQUE: Frontal and lateral views of the chest are obtained. FINDINGS: There is some linear density at the left lung base. There is no heart failure. Heart and m ediastinum are normal. There is no sign of pleural effusion. There are chest leads. Bony thorax appea rs intact. IMPRESSION: There is new mild atelectasis at the left lung base compared to last exam. Normal heart.
[2016-11-14 18:36] LABS: INR 1.1 (<1.1); Partial Thromboplastin Time 25.3 sec (22.0-30.0); Prothrombin Time 11.5 sec (9.0-12.0)
[2016-11-14] MEDS ORDERED: MAGNESIUM SULFATE-D5W PMX 1 GM in DEXTROSE/WATER 1 100ML.BAG IVPB ONE (18:46)
[2016-11-14 18:48] LABS: Creatine Kinase 49 U/L (30-135)
[2016-11-14] MEDS ORDERED: ACETAMINOPHEN TAB 500 MG TAB PO STA (18:56)
[2016-11-14 18:59] LABS: Creatine Kinase MB 0.4 ng/mL (0.0-2.4); Troponin I <0.012 ng/mL (0.000-0.034)
[2016-11-14] MEDS ORDERED: SODIUM CHLORIDE 0.9% 500 ML IV ONE (19:22)
[2016-11-14] MEDS ORDERED: IBUPROFEN IV 600 MG in SODIUM CHLORIDE 0.9% 250 ML IV STA (19:22)
[2016-11-14] MEDS ORDERED: SODIUM CHLORIDE 0.9% 1,000 ML IV ONE (19:22)
[2016-11-14 21:37] LABS: ALT 32 U/L (9-52); AST 24 U/L (14-36); Alkaline Phosphatase 70 U/L (38-126); Anion Gap 10 mmol/L; Blood Urea Nitrogen 19 mg/dL (7-17); Calcium 7.9 mg/dL (8.4-10.2); Carbon Dioxide 25 mmol/L (22-30); Chloride 97 mmol/L (98-107); Glucose 79 mg/dL (74-99); Non-African American GFR(MDRD) 58 (>60 ml/min/1.73 sqM); Potassium 3.5 mmol/L (3.5-5.1); Sodium 132 mmol/L (137-145); Total Bilirubin 0.4 mg/dL (0.2-1.3); Total Protein 5.9 g/dL (6.3-8.2)
[2016-11-14 22:06] LABS: Glucose,Whole Blood 72 mg/dL (75-99)
[2016-11-14 22:27] VITALS: BP 119/70; PULSE 91; RESP 20; TEMP 99.9
== END 2016-11-14 22:26 | disposition home or self-care (01) ==
LOC: EC 17:55
DX: J10.1 Influenza due to other identified influenza virus with other respiratory manifestations (principal); R06.02 Shortness of breath; E11.9 Type 2 diabetes mellitus without complications; K21.9 Gastro-esophageal reflux disease without esophagitis; E78.5 Hyperlipidemia, unspecified; I10 Essential (primary) hypertension; K58.9 Irritable bowel syndrome, unspecified; E11.319 Type 2 diabetes mellitus with unspecified diabetic retinopathy without macular edema; F41.9 Anxiety disorder, unspecified; F32.9 Major depressive disorder, single episode, unspecified; F41.0 Panic disorder [episodic paroxysmal anxiety]; Z79.51 Long term (current) use of inhaled steroids; Z79.4 Long term (current) use of insulin; Z79.899 Other long term (current) drug therapy; Z91.041 Radiographic dye allergy status; Z88.8 Allergy status to other drugs, medicaments and biological substances; Z88.5 Allergy status to narcotic agent; Z88.6 Allergy status to analgesic agent; Z88.1 Allergy status to other antibiotic agents; Z88.0 Allergy status to penicillin
CPT/HCPCS: 99285; 96365; 96375; 36415; 93005; 83880; 80053; 82550; 82553; 83605; 83735; 84484; 85025; 85610; 85730; 87040; 87502; 71020; J3475; J1741

== ENCOUNTER → 2016-12-10 | Outpatient (CLI) | payer OTHER ==
--- NOTE | 2016-12-10 13:01 | CT ---
EXAMINATION TYPE: CT chest wo con DATE OF EXAM: 12/10/2016 12:20 PM COMPARISON: 11/06/2016 HISTORY: Patient has nodule in right upper lung that is painful CT DLP: 1024.7 mGycm, Automated exposure control for dose reduction was used. TECHNIQUE: Axial images were obtained at 5 mm thick sections. Reconstructed images are reviewed on [employer] computer in the coronal plane. FINDINGS: There is some subtle hypodensity within the left mid lobe of thyroid within the field-of-vi ew. This could be further evaluated with ultrasound. Thyroid appears somewhat prominent. No suspicious lung nodules or focal infiltrates are present. No enlarged mediastinal or hilar adenopathy is evident. The ascending aorta diameter at the level o f the main pulmonary artery is 3.8 cm. The main pulmonary artery diameter at the bifurcation is 2.6 cm. Coronary artery calcification is present. Limited CT sections are obtained through the upper abdomen. Abdomen is essentially unremarkable. IMPRESSIONS: 1. No suspicious pulmonary nodules. 2. Enlarged thyroid with ill-defined hypodensity within the left lobe. This could be further evaluate d with ultrasound.
== END | disposition home or self-care (01) ==
LOC: RADCTMAIN 11:50
PROVIDERS: ATTEND Internal Medicine Pulmonary Disease
DX: R05 Cough (principal); R06.02 Shortness of breath
CPT/HCPCS: 71250

== ENCOUNTER 2016-12-22 10:42 | Emergency (ER) | payer OTHER ==
[2016-12-22] MEDS ORDERED: HYDROmorphone 1 MG/ML 1 ML SYRINGE IM STA (11:20)
[2016-12-22] MEDS ORDERED: KETOROLAC 30 MG/ML 1 ML VIAL IM STA (11:20)
[2016-12-22] MEDS ORDERED: DIAZEPAM 5 MG TAB PO STA (11:21)
--- NOTE | 2016-12-22 11:32 | ED ---
General Adult HPI - General Chief complaint: Back Pain/Injury Stated complaint: back pain Time Seen by Provider: 12/22/16 10:59 Source: patient, RN notes reviewed, old records reviewed Mode of arrival: ambulatory Limitations: no limitations - History of Present Illness Initial comments: 46-year-old female presenting for low back pain. Patient states she's had a history of this in the past. She states that 2 days ago she was doing work around the house and developed pain in her lower back. She states she did not stop at that point and continued working and now the pain has worsened over the past 2 days. She states she sometimes has a shooting feeling from her right low back up to her right shoulder. States this is similar to previous pain she has had in her back. She states that she has been taking naproxen without improvement of her symptoms. She denies any fall or specific injury. Denies any bowel or bladder incontinence. - Related Data Home Medications Medication Instructions Recorded Confirmed DULoxetine HCL [Cymbalta] 60 mg PO DAILY 04/28/16 12/22/16 Insulin Regular [humuLIN R] 12 units SQ W/SUPPER 04/28/16 12/22/16 Insulin Regular [humuLIN R] 14 units SQ W/BRKFST 04/28/16 12/22/16 Insulin Regular [humuLIN R] 14 units SQ W/LUNCH 04/28/16 12/22/16 Losartan [Cozaar] 25 mg PO DAILY 04/28/16 12/22/16 Sucralfate [Carafate] 1 gm PO QID 04/28/16 12/22/16 metFORMIN HCL ER [Glucophage Xr] 500 mg PO AC-BRKFST 04/28/16 12/22/16 Atenolol [Tenormin] 50 mg PO BID 09/11/16 12/22/16 Gabapentin [Neurontin] 400 mg PO TID 09/11/16 12/22/16 Ondansetron Odt [Zofran ODT] 4 mg PO Q12H PRN 09/11/16 12/22/16 metFORMIN HCL ER [Glucophage Xr] 1,000 mg PO PC-SUPPER 09/11/16 12/22/16 Pioglitazone HCl [Actos] 30 mg PO DAILY 11/06/16 12/22/16 Beclomethasone Dipropionate [Qvar 1 puff INHALATION RT-BID 11/14/16 12/22/16 40 mcg] Atorvastatin [Lipitor] 20 mg PO HS 12/22/16 12/22/16 Insulin Regular [HumuLIN R] See Protocol SQ AC-TID 12/22/16 12/22/16 Previous Rx's Medication Instructions Recorded Clopidogrel [Plavix] 75 mg PO DAILY #30 tab 06/29/15 Aspirin EC [Ecotrin Low Dose] 81 mg PO DAILY #30 tablet. 11/07/16 Acetaminophen with Codeine 1 tab PO Q4HR PRN #16 tab 12/22/16 [Tylenol w/codeine #4] Diazepam [Valium] 5 mg PO BID PRN #8 tab 12/22/16 Allergies Allergy/AdvReac Type Severity Reaction Status Date / Time Iodinated Contrast Media - Allergy Itching Verified 12/22/16 11:11 Oral and [Iodinated Contrast Media - IV Dye] iodine Allergy Rash/Hives, Verified 12/22/16 11:11 ITCHING prednisone Allergy Rapid Verified 12/22/16 11:11 Heart Rate celecoxib [From Celebrex] AdvReac CAUSES GI Verified 12/22/16 11:11 BLEEDING cephalexin monohydrate AdvReac Vomiting Verified 12/22/16 11:11 [From Keflex] hydrocodone AdvReac Nausea & Verified 12/22/16 11:11 Vomiting Penicillins AdvReac Nausea & Verified 12/22/16 11:11 Vomiting Review of Systems ROS Statement: Those systems with pertinent positive or pertinent negative responses have been documented in the HPI. ROS Other: All systems not noted in ROS Statement are negative. Past Medical History Past Medical History: Diabetes Mellitus, GERD/Reflux, Hyperlipidemia, Hypertension, Neurologic Disorder, Sleep Apnea/CPAP/BIPAP, Syncope Additional Past Medical History / Comment(s): " lt warped cornea", recurrant c/p ,uti's. Psoriasis, neuropathy, DDD, bursitis left hip, fractured left knee, IBS , diabetic retinopathy, duodenal ulcer, migraines, chronic back pain," ringing in ears", intermittent blurry vision" History of Any Multi-Drug Resistant Organisms: None Reported Past Surgical History: Adenoidectomy, Cholecystectomy, Tonsillectomy Additional Past Surgical History / Comment(s): endoscopy, colonoscopy, D&C, carpal tunnel surgery left arm, LT ARM SX FOR "PINCHED NERVE", LT THUMB TRIGGER FINGER. Past Anesthesia/Blood Transfusion Reactions: No Reported Reaction Additional Past Anesthesia/Blood Transfusion Reaction / Comment(s): difficulty waking from aa Past Psychological History: Anxiety, Depression, Panic Disorder Additional Psychological History / Comment(s): PT STATED LIVES IN AN APT W/ 3 DOGS, 1 CAT, HAS 4 STEPS TO GET UP TO [employer] IN APT. 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 PT HAS A WALKWE, CPAP MACHINE A NEW RAISED TOILET/RALES. 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 Smoking Status: Former smoker Past Alcohol Use History: Occasional Additional Past Alcohol Use History / Comment(s): started smoking at age 13 smoked 1/2 ppd, quit in the early Past Drug Use History: None Reported Additional Drug Use History / Comment(s): when younger smoked marijuana-none since the - Past Family History Father Family Medical History: Cancer, Congestive Heart Failure (CHF), CVA/TIA, Hypertension, Syncope Additional Family Medical History / Comment(s): 1992 Mother Family Medical History: Diabetes Mellitus, Hypertension, Osteoarthritis (OA) Additional Family Medical History / Comment(s): MURMUR Sister(s) Family Medical History: Diabetes Mellitus, Hypertension Additional Family Medical History / Comment(s): Depression General Exam - General Exam Comments Initial Comments: General: Awake and Alert. No acute distress. Does not appear acutely ill. Eyes: MANNY, EOM intact. No nystagmus. No scleral icterus. HENT: Atraumatic, normocephalic. Mucous membranes moist. Trachea midline. Neck: The neck is supple, there is no tenderness or JVD. Cardiovascular: Regular rate and rhythm. No murmur, rub, or gallop is appreciated. Distal pulses intact. Respiratory: Lungs are clear to auscultation bilaterally. No wheezes, rales, rhonchi. No respiratory distress. Gastrointestinal: Soft, Nontender. No rebound or guarding. Non-distended. No masses or organomegaly noted. No CVA tenderness. Musculoskeletal: Right lower back tenderness. Normal ROM. No gross deformity. No strength deficits. Neurological: A&Ox3. CN II-XII grossly intact, There are no obvious motor or sensory deficits. Coordination appears grossly intact. Speech is normal. Normal gait. Skin: Skin is warm and dry and no rashes or lesions are noted. Psychiatric: Cooperative, appropriate mood & affect, normal judgment. Limitations: no limitations Course Vital Signs 12/22/16 12/22/16 10:51 12:49 Temperature 97.4 F L 98.1 F Pulse Rate 86 75 Respiratory 16 18 Rate Blood Pressure 132/73 139/87 O2 Sat by Pulse 100 98 Oximetry Medical Decision Making - Medical Decision Making 46-year-old female presenting for right lower back pain. Exam with tenderness in the right lower back. There is no evidence of focal neurological deficit on exam. No saddle paresthesias. No bowel/bladder incontinence by history. Low suspicion of cauda equina syndrome or acute cord compression. Patient is able to ambulate without issue. Given medication for presumed underlying muscle spasm. On reevaluation patient states she is feeling significantly improved. She does state she has follow-up with Dr. Perkins, neurology tomorrow. Given no new injury or trauma, and without neuro deficit, no plan for imaging at this time. Encouraged to keep this appointment. Discussed close follow-up with PCP as well. Rx for pain and muscle relaxer medications. Discussed concerning signs symptoms requiring immediate return to the ED. Patient is agreeable with plan and discharge home. Disposition Clinical Impression: Acute low back pain Disposition: HOME SELF-CARE Condition: Stable Instructions: Acute Low Back Pain (ED) Prescriptions: Acetaminophen with Codeine [Tylenol w/codeine #4] 1 tab PO Q4HR PRN #16 tab PRN Reason: Pain Diazepam [Valium] 5 mg PO BID PRN #8 tab PRN Reason: back spasm Referrals: Link Langley MD [Primary Care Provider] - 1-2 days Time of Disposition: 12:34
[2016-12-22 12:49] VITALS: BP 139/87; PULSE 75; RESP 18; TEMP 98.1
== END 2016-12-22 12:49 | disposition home or self-care (01) ==
LOC: EC 10:42
DX: M54.5 Low back pain (principal); I10 Essential (primary) hypertension; E11.9 Type 2 diabetes mellitus without complications; E78.5 Hyperlipidemia, unspecified; Z87.891 Personal history of nicotine dependence; Z91.041 Radiographic dye allergy status; Z91.048 Other nonmedicinal substance allergy status; Z88.1 Allergy status to other antibiotic agents; Z88.0 Allergy status to penicillin; Z88.8 Allergy status to other drugs, medicaments and biological substances; Z79.51 Long term (current) use of inhaled steroids; Z79.4 Long term (current) use of insulin; Z79.84 Long term (current) use of oral hypoglycemic drugs; Z79.899 Other long term (current) drug therapy
CPT/HCPCS: 99283; 96372 ×2; J1885; J1170

== ENCOUNTER → 2016-12-25 | Outpatient (CLI) | payer OTHER ==
--- NOTE | 2016-12-26 07:22 | MM ---
Reason for exam: clinical finding. Last mammogram was performed 2 years ago. History: Patient is postmenopausal. Family history of breast cancer in maternal cousin and breast cancer in paternal aunt at age 50. Took hormonal contraceptives for 6 months. Indicated problem(s): pain in both breasts. Physical Findings: Nurse did not find any significant physical abnormalities on exam. MG Diagnostic Mammo w CAD VONNIE Bilateral CC and MLO view(s) were taken. Prior study comparison: December 25, 2014, bilateral MG diagnostic mammo w CAD VONNIE. February 09, 2013, CAD bilateral diagnostic mammogram. There are scattered fibroglandular densities. Asymmetric breast tissue greater in the left breast. Focal asymmetry inferior left MLO, present 02/09/13. These results were verbally communicated with the patient and result sheet given to the patient on 12/25/16. ASSESSMENT: Benign, BI-RAD 2 RECOMMENDATION: Routine screening mammogram of both breasts in 1 year. Manage on a clinical basis with regard to pain on right.
== END ==
LOC: RADMAMWWP 14:39
PROVIDERS: ATTEND Surgery
DX: N64.4 Mastodynia (principal)

== ENCOUNTER → 2017-01-30 | Outpatient (CLI) | payer OTHER ==
--- NOTE | 2017-01-30 16:20 | US ---
EXAMINATION TYPE: US venous doppler duplex LE LT DATE OF EXAM: 01/30/2017 4:12 PM COMPARISON: NONE CLINICAL HISTORY: I82.409 DVT left lower extremity. Pain left lower leg. Surgery left foot 01/27/17. P atient on Plavix due to cardiac issues SIDE PERFORMED: left TECHNIQUE: The lower extremity deep venous system is examined utilizing real time linear array sonog dain with graded compression, doppler sonography and color-flow sonography. VESSELS IMAGED: External Iliac Vein (EIV) Common Femoral Vein Deep Femoral Vein Greater Saphenous Vein * Femoral Vein Popliteal Vein Small Saphenous Vein * Proximal Calf Veins (* superficial vessels) Left Leg: No evidence of DVT as visualized IMPRESSION: Grayscale, color doppler, spectral doppler imaging performed of the deep veins of the lo wer extremities. There is normal flow, compressibility, vascular waveforms bilaterally. There is no evident deep venous thrombosis in the left lower extremity is visualized.
== END ==
LOC: RADUSMAIN 15:27
PROVIDERS: ATTEND Podiatrist Foot & Ankle Surgery
DX: I82.409 Acute embolism and thrombosis of unspecified deep veins of unspecified lower extremity (principal)

== ENCOUNTER 2017-02-24 14:38 | Observation (INO) | payer OTHER ==
[2017-02-24] MEDS ORDERED: ASPIRIN 81 MG CHEW PO STA (15:09)
[2017-02-24] MEDS ORDERED: NITROGLYCERIN SL TABS 0.4 MG TAB SUBLINGUAL STA ×3 (15:09)
[2017-02-24] MEDS ORDERED: ONDANSETRON 4 MG/2 ML VIAL IVP STA (15:10)
--- NOTE | 2017-02-24 15:12 | ED ---
General Adult HPI - General Chief complaint: Chest Pain Stated complaint: Chest pain, SANTOS Time Seen by Provider: 02/24/17 14:56 Source: patient, family, RN notes reviewed Mode of arrival: wheelchair Limitations: no limitations - History of Present Illness Initial comments: Patient is a pleasant 46-year-old female presenting to the emergency department complaining of chest discomfort. Symptoms have been present for the past week and mostly steady. Discomfort is rated 8/10. Patient has some associated dyspnea. Symptoms increased with deep breaths. Symptoms are not necessarily exertional. Patient has had similar symptoms previously associated with both anxiety and her problems. Patient states she did have a heart attack years ago. Patient has been nauseated with a single episode of emesis. Patient has been sweaty. - Related Data Home Medications Medication Instructions Recorded Confirmed DULoxetine HCL [Cymbalta] 60 mg PO DAILY 04/28/16 02/24/17 Insulin Regular [humuLIN R] 15 units SQ AC-TID 04/28/16 02/24/17 Losartan [Cozaar] 25 mg PO DAILY 04/28/16 02/24/17 Sucralfate [Carafate] 1 gm PO TID 04/28/16 02/24/17 metFORMIN HCL ER [Glucophage Xr] 500 mg PO AC-BRKFST 04/28/16 02/24/17 Atenolol [Tenormin] 50 mg PO BID 09/11/16 02/24/17 Gabapentin [Neurontin] 400 mg PO TID 09/11/16 02/24/17 Ondansetron Odt [Zofran ODT] 4 mg PO Q12H PRN 09/11/16 02/24/17 metFORMIN HCL ER [Glucophage Xr] 1,000 mg PO PC-SUPPER 09/11/16 02/24/17 Pioglitazone HCl [Actos] 30 mg PO DAILY 11/06/16 02/24/17 Atorvastatin [Lipitor] 20 mg PO HS 12/22/16 02/24/17 Insulin Regular [HumuLIN R] See Protocol SQ AC-TID 12/22/16 02/24/17 Beclomethasone Dipropionate [Qvar 1 puff INHALATION RT-BID 02/24/17 02/24/17 80 mcg] HYDROcodone/APAP 5-325MG [[place] 1 tab PO DAILY PRN 02/24/17 02/24/17 5-325] L. Rhamnosus GG/Inulin [Culturelle 1 tab PO DAILY 02/24/17 02/24/17 Chewable Tablet] LORazepam [Ativan] 1 mg PO BID PRN 02/24/17 02/24/17 Magnesium Oxide [Mag-Ox] 400 mg PO DAILY 02/24/17 02/24/17 Methocarbamol [Robaxin] 500 - 1,000 mg PO QID PRN 02/24/17 02/24/17 [place]-3 Fatty Acids/Fish Oil [Fish 1,000 mg PO DAILY 02/24/17 02/24/17 Oil 1,000 mg Capsule] Previous Rx's Medication Instructions Recorded Clopidogrel [Plavix] 75 mg PO DAILY #30 tab 06/29/15 Aspirin EC [Ecotrin Low Dose] 81 mg PO DAILY #30 tablet. 11/07/16 Allergies Allergy/AdvReac Type Severity Reaction Status Date / Time Iodinated Contrast Media - Allergy Itching Verified 02/24/17 15:15 Oral and [Iodinated Contrast Media - IV Dye] iodine Allergy Rash/Hives, Verified 02/24/17 15:15 ITCHING prednisone Allergy Rapid Verified 02/24/17 15:15 Heart Rate celecoxib [From Celebrex] AdvReac CAUSES GI Verified 02/24/17 15:15 BLEEDING cephalexin monohydrate AdvReac Vomiting Verified 02/24/17 15:15 [From Keflex] hydrocodone AdvReac Nausea & Verified 02/24/17 15:15 Vomiting Penicillins AdvReac Nausea & Verified 02/24/17 15:15 Vomiting Review of Systems ROS Statement: Those systems with pertinent positive or pertinent negative responses have been documented in the HPI. ROS Other: All systems not noted in ROS Statement are negative. Constitutional: Denies: fever Eyes: Denies: eye pain ENT: Denies: ear pain Respiratory: Denies: cough Cardiovascular: Reports: chest pain Endocrine: Denies: fatigue Gastrointestinal: Denies: abdominal pain Genitourinary: Denies: dysuria Musculoskeletal: Denies: back pain Skin: Denies: rash Neurological: Denies: weakness Past Medical History Past Medical History: Diabetes Mellitus, GERD/Reflux, Hyperlipidemia, Hypertension, Neurologic Disorder, Sleep Apnea/CPAP/BIPAP, Syncope Additional Past Medical History / Comment(s): " lt warped cornea", recurrant c/p ,uti's. Psoriasis, neuropathy, DDD, bursitis left hip, fractured left knee, IBS , diabetic retinopathy, duodenal ulcer, migraines, chronic back pain," ringing in ears", intermittent blurry vision" History of Any Multi-Drug Resistant Organisms: None Reported Past Surgical History: Adenoidectomy, Cholecystectomy, Tonsillectomy Additional Past Surgical History / Comment(s): endoscopy, colonoscopy, D&C, carpal tunnel surgery left arm, LT ARM SX FOR "PINCHED NERVE", LT THUMB TRIGGER FINGER. Past Anesthesia/Blood Transfusion Reactions: No Reported Reaction Additional Past Anesthesia/Blood Transfusion Reaction / Comment(s): difficulty waking from aa Past Psychological History: Anxiety, Depression, Panic Disorder Smoking Status: Former smoker Past Alcohol Use History: Occasional Past Drug Use History: None Reported - Past Family History Father Family Medical History: Cancer, Congestive Heart Failure (CHF), CVA/TIA, Hypertension, Syncope Additional Family Medical History / Comment(s): 1992 Mother Family Medical History: Diabetes Mellitus, Hypertension, Osteoarthritis (OA) Additional Family Medical History / Comment(s): MURMUR Sister(s) Family Medical History: Diabetes Mellitus, Hypertension Additional Family Medical History / Comment(s): Depression General Exam Limitations: no limitations General appearance: alert, in no apparent distress Head exam: Present: atraumatic Eye exam: Present: normal appearance, PERRL ENT exam: Present: normal oropharynx Neck exam: Present: normal inspection Respiratory exam: Present: normal lung sounds bilaterally. Absent: chest wall tenderness Cardiovascular Exam: Present: regular rate, normal rhythm Expanded Peripheral pulses: 2+: Radial (R), Radial (L), Posterior Tibialis (R), Posterior Tibialis (L) GI/Abdominal exam: Present: soft. Absent: tenderness Extremities exam: Present: normal inspection. Absent: pedal edema, calf tenderness Neurological exam: Present: alert Psychiatric exam: Present: normal affect, normal mood Skin exam: Present: normal color Course Vital Signs 02/24/17 02/24/17 02/24/17 14:43 15:06 15:18 Temperature 98.0 F Pulse Rate 69 75 Pulse Rate [ 85 Right Radial] Respiratory 20 20 Rate Blood Pressure 143/90 170/75 O2 Sat by Pulse 95 96 Oximetry 02/24/17 17:15 Temperature Pulse Rate 70 Pulse Rate [ Right Radial] Respiratory 16 Rate Blood Pressure 132/68 O2 Sat by Pulse 99 Oximetry EKG Findings - EKG Comments: EKG Findings:: Normal sinus rhythm 71. Normal intervals. Normal axis. Normal QRS. Normal ST-T. Medical Decision Making - Medical Decision Making Patient reexamined and resting comfortably in bed. Patient did receive partial improvement with nitroglycerin however now has headache. Patient updated on results and plan. Case discussed in detail with Dr. Sanchez, who will admit for Dr. Langley. - Lab Data Result diagrams: 02/24/17 15:15 02/24/17 15:15 Lab Results 02/24/17 02/24/17 02/24/17 Range/Units 15:15 15:15 15:15 WBC 6.8 (3.8-10.6) k/uL RBC 4.36 (3.80-5.40) m/uL Hgb 11.6 (11.4-16.0) gm/dL Hct 36.2 (34.0-46.0) % MCV 83.1 (80.0-100.0) fL MCH 26.5 (25.0-35.0) pg MCHC 31.9 (31.0-37.0) g/dL RDW 14.9 (11.5-15.5) % Plt Count 201 (150-450) k/uL Neutrophils % 71 % Lymphocytes % 19 % Monocytes % 4 % Eosinophils % 3 % Basophils % 1 % Neutrophils # 4.9 (1.3-7.7) k/uL Lymphocytes # 1.3 (1.0-4.8) k/uL Monocytes # 0.3 (0-1.0) k/uL Eosinophils # 0.2 (0-0.7) k/uL Basophils # 0.0 (0-0.2) k/uL PT (9.0-12.0) sec INR (<1.1) APTT (22.0-30.0) sec D-Dimer (<0.60) mg/L FEU Sodium 139 (137-145) mmol/L Potassium 4.0 (3.5-5.1) mmol/L Chloride 100 (98-107) mmol/L Carbon Dioxide 27 (22-30) mmol/L Anion Gap 12 mmol/L BUN 13 (7-17) mg/dL Creatinine 0.72 (0.52-1.04) mg/dL Est GFR (MDRD) Af Amer >60 (>60 ml/min/1.73 sqM) Est GFR (MDRD) Non-Af >60 (>60 ml/min/1.73 sqM) Glucose 182 H (74-99) mg/dL Calcium 9.4 (8.4-10.2) mg/dL Magnesium 1.5 L (1.6-2.3) mg/dL Total Bilirubin 0.9 (0.2-1.3) mg/dL AST 28 (14-36) U/L ALT 29 (9-52) U/L Alkaline Phosphatase 105 (38-126) U/L Total Creatine Kinase 47 (30-135) U/L CK-MB (CK-2) 0.4 (0.0-2.4) ng/mL CK-MB (CK-2) Rel Index 0.9 Troponin I <0.012 (0.000-0.034) ng/mL NT-Pro-B Natriuret Pep pg/mL Total Protein 7.1 (6.3-8.2) g/dL Albumin 4.0 (3.5-5.0) g/dL 02/24/17 02/24/17 Range/Units 15:15 15:15 WBC (3.8-10.6) k/uL RBC (3.80-5.40) m/uL Hgb (11.4-16.0) gm/dL Hct (34.0-46.0) % MCV (80.0-100.0) fL MCH (25.0-35.0) pg MCHC (31.0-37.0) g/dL RDW (11.5-15.5) % Plt Count (150-450) k/uL Neutrophils % % Lymphocytes % % Monocytes % % Eosinophils % % Basophils % % Neutrophils # (1.3-7.7) k/uL Lymphocytes # (1.0-4.8) k/uL Monocytes # (0-1.0) k/uL Eosinophils # (0-0.7) k/uL Basophils # (0-0.2) k/uL PT 10.9 (9.0-12.0) sec INR 1.1 (<1.1) APTT 24.2 (22.0-30.0) sec D-Dimer 0.21 (<0.60) mg/L FEU Sodium (137-145) mmol/L Potassium (3.5-5.1) mmol/L Chloride (98-107) mmol/L Carbon Dioxide (22-30) mmol/L Anion Gap mmol/L BUN (7-17) mg/dL Creatinine (0.52-1.04) mg/dL Est GFR (MDRD) Af Amer (>60 ml/min/1.73 sqM) Est GFR (MDRD) Non-Af (>60 ml/min/1.73 sqM) Glucose (74-99) mg/dL Calcium (8.4-10.2) mg/dL Magnesium (1.6-2.3) mg/dL Total Bilirubin (0.2-1.3) mg/dL AST (14-36) U/L ALT (9-52) U/L Alkaline Phosphatase (38-126) U/L Total Creatine Kinase (30-135) U/L CK-MB (CK-2) (0.0-2.4) ng/mL CK-MB (CK-2) Rel Index Troponin I (0.000-0.034) ng/mL NT-Pro-B Natriuret Pep 326 pg/mL Total Protein (6.3-8.2) g/dL Albumin (3.5-5.0) g/dL - Radiology Data Radiology results: image reviewed (Chest x-ray shows no acute process) Disposition Clinical Impression: Unstable angina pectoris Disposition: ADMITTED IP TO THIS [facility] Referrals: Link Langley MD [Primary Care Provider] - 1-2 days Decision Time: 17:36
[2017-02-24 15:37] LABS: Basophils % (A) 1 %; CH 27.2; CHCM 32.9; Eosinophils # (A) 0.2 k/uL (0-0.7); Eosinophils % (A) 3 %; HCT 36.2 % (34.0-46.0); HDW 2.94; HGB 11.6 gm/dL (11.4-16.0); Luc # (Auto) 0.12; Luc % (Auto) 2; Lymphocytes # (A) 1.3 k/uL (1.0-4.8); Lymphocytes % (A) 19 %; MCH 26.5 pg (25.0-35.0); MCHC 31.9 g/dL (31.0-37.0); MCV 83.1 fL (80.0-100.0); Mean Platelet Volume 6.7; Monocytes # (A) 0.3 k/uL (0-1.0); Monocytes % (A) 4 %; Neutrophils # (A) 4.9 k/uL (1.3-7.7); Neutrophils % (A) 71 %; RBC 4.36 m/uL (3.80-5.40); RDW 14.9 % (11.5-15.5); WBC 6.8 k/uL (3.8-10.6); WBC (Perox) 7.07
[2017-02-24 15:46] LABS: ALT 29 U/L (9-52); AST 28 U/L (14-36); Alkaline Phosphatase 105 U/L (38-126); Anion Gap 12 mmol/L; Blood Urea Nitrogen 13 mg/dL (7-17); Calcium 9.4 mg/dL (8.4-10.2); Carbon Dioxide 27 mmol/L (22-30); Chloride 100 mmol/L (98-107); Glucose 182 mg/dL (74-99); Magnesium 1.5 mg/dL (1.6-2.3); Non-African American GFR(MDRD) >60 (>60 ml/min/1.73 sqM); Sodium 139 mmol/L (137-145); Total Bilirubin 0.9 mg/dL (0.2-1.3); Total Protein 7.1 g/dL (6.3-8.2)
[2017-02-24 15:50] LABS: INR 1.1 (<1.1); Partial Thromboplastin Time 24.2 sec (22.0-30.0); Prothrombin Time 10.9 sec (9.0-12.0)
[2017-02-24 15:57] LABS: Creatine Kinase 47 U/L (30-135)
[2017-02-24 16:10] LABS: Creatine Kinase MB 0.4 ng/mL (0.0-2.4); Troponin I <0.012 ng/mL (0.000-0.034)
--- NOTE | 2017-02-24 16:24 | XR ---
EXAMINATION TYPE: XR chest 2V DATE OF EXAM: 02/24/2017 COMPARISON: Prior chest x-ray 11/14/2016 HISTORY: Chest pain TECHNIQUE: Frontal and lateral views of the chest are obtained. FINDINGS: There is no focal air space opacity, pleural effusion, or pneumothorax seen. The cardiac silhouette size is stable. Patient is rotated. There are overlying cardiac leads. The osseous struct ures are intact. IMPRESSION: No acute cardiopulmonary process.
[2017-02-24] MEDS ORDERED: LORazepam 2 MG/ML SYRINGE IV STA (16:53)
[2017-02-24] MEDS ORDERED: HYDROcodone/APAP 5-325MG 1 EACH TAB PO STA (17:19)
[2017-02-24] MEDS ORDERED: NITROGLYCERIN SL TABS 0.4 MG TAB SUBLINGUAL PRN (17:36)
[2017-02-24] MEDS ORDERED: HEPARIN SODIUM,PORCINE 5,000 UNIT/ML 1 ML VIAL IV ONE (17:36)
[2017-02-24] MEDS ORDERED: HEPARIN SODIUM,PORCINE 5,000 UNIT/ML 1 ML VIAL IV PRN (17:36)
[2017-02-24] MEDS ORDERED: HEPARIN SODIUM,PORCINE/D5W PMX 25,000 UNIT in DEXTROSE/WATER 1 500ML.BAG IV SCH (17:45)
[2017-02-24] MEDS ORDERED: METHOCARBAMOL 500 MG TAB PO PRN (18:41)
[2017-02-24] MEDS ORDERED: LORazepam 1 MG TAB PO PRN (18:41)
[2017-02-24] MEDS ORDERED: HYDROcodone/APAP 5-325MG 1 EACH TAB PO PRN (18:41)
[2017-02-24] MEDS ORDERED: ONDANSETRON ODT 4 MG TAB PO PRN (18:41)
[2017-02-24] MEDS: ATENOLOL 50 MG TAB PO SCH (19:55)
[2017-02-24] MEDS: GABAPENTIN 400 MG CAP PO SCH (19:56)
[2017-02-24 20:13] VITALS: BMI 44.0
[2017-02-24 20:56] LABS: Glucose,Whole Blood 94 mg/dL (75-99)
[2017-02-24] MEDS ORDERED: ATORVASTATIN 20 MG TAB PO SCH (21:00)
[2017-02-24] MEDS: NITROGLYCERIN OINT 1 INCH/GM PACKET TOPICAL SCH (21:06)
[2017-02-24 21:55] LABS: Creatine Kinase 40 U/L (30-135)
[2017-02-24 22:08] LABS: Creatine Kinase MB 0.5 ng/mL (0.0-2.4); Troponin I <0.012 ng/mL (0.000-0.034)
[2017-02-25] MEDS: NITROGLYCERIN OINT 1 INCH/GM PACKET TOPICAL SCH ×2 (00:07→04:14)
[2017-02-25 04:00] LABS: Creatine Kinase 37 U/L (30-135)
[2017-02-25 04:12] LABS: Creatine Kinase MB 0.5 ng/mL (0.0-2.4); Troponin I <0.012 ng/mL (0.000-0.034)
[2017-02-25 07:14] LABS: Glucose,Whole Blood 92 mg/dL (75-99)
[2017-02-25 07:30] LABS: Mean Platelet Volume 6.5
[2017-02-25 07:42] LABS: Cholesterol 133 mg/dL (<200); HDL Cholesterol 30 mg/dL (40-60); Triglycerides 149 mg/dL (<150)
[2017-02-25] MEDS ORDERED: FATTY ACIDS PO SCH (09:00)
[2017-02-25] MEDS ORDERED: FISH OIL PO SCH (09:00)
[2017-02-25] MEDS ORDERED: OMEGA PO SCH (09:00)
[2017-02-25] MEDS ORDERED: PIOGLITAZONE 30 MG TAB PO SCH (09:00)
[2017-02-25] MEDS ORDERED: MAGNESIUM OXIDE 400 MG TAB PO SCH (09:00)
[2017-02-25] MEDS ORDERED: LOSARTAN 25 MG TAB PO SCH (09:00)
[2017-02-25] MEDS ORDERED: metFORMIN 500 MG TAB PO SCH ×2 (09:00)
[2017-02-25] MEDS ORDERED: ISOSORBIDE MONONITRATE ER 30 MG TAB.ER.24H PO SCH (09:00)
[2017-02-25] MEDS ORDERED: ASPIRIN 325 MG TAB PO SCH (09:00)
[2017-02-25] MEDS ORDERED: ASPIRIN 81 MG CHEW PO SCH (09:00)
[2017-02-25] MEDS ORDERED: NON-FORMULARY DRUG (Aspirin Ec 81 MG) PO SCH (09:00)
[2017-02-25] MEDS ORDERED: CLOPIDOGREL 75 MG TAB PO SCH (09:00)
[2017-02-25] MEDS ORDERED: DULoxetine HCL 60 MG CAPSULE.DR PO SCH (09:00)
[2017-02-25] MEDS: BECLOMETHASONE DIP 80 MCG/PUFF INHALER INHALATION SCH ×2 (10:03→10:22)
--- NOTE | 2017-02-25 10:09 | P.HPIM ---
History of Present Illness H&P Date: 02/24/17 Chief Complaint: Chest pain and unstable angina, palpitation and arrhythmia, diabetes, hyper 46-year-old female overweight [address] Langle[address]'s patient with the past medical history of diabetes, hypertension, hyperlipidemia, neuropathy, sleep apnea and recurrent syncope who was hospitalized back in 11/06/2016 4 palpitation recurrent chest pain. Patient was seen cardiology at the time and has been seen Dr. العراقي all along. Patient apparently schedule in March to go for electrophysiology study and possible need ablation therapy. Patient presented to [facility] today complaining of worsening chest discomfort 8 out of 10 associated with dyspnea with exertion and worsening symptom with deep inspiration patient has been having significant palpitation and lightheadedness fainting symptoms and such she had mild nausea with no emesis at the time. Patient made it to [facility] department her CK with troponin did not show any abnormality patient is known to have multiple risk factor for heart disease patient will be admitted for the above problem. Review of Systems Constitutional: Reports fatigue, Reports malaise, Reports weakness, Reports weight gain, Denies as per HPI, Denies anorexia, Denies chills, Denies chronic headaches, Denies chronic pain, Denies daytime sleepiness, Denies fever, Denies lethargy, Denies night sweats, Denies poor appetite, Denies sweats, Denies weight loss Eyes: bilateral as per HPI Ears: bilateral: decreased hearing Ears, nose, mouth and throat: Reports nasal discharge, Reports sinus pain, Reports sinus pressure, Denies as per HPI, Denies ant. neck pain, Denies bleeding gums, Denies dental pain, Denies dysphagia, Denies epistaxis, Denies headache, Denies hoarseness, Denies mouth pain, Denies nasal congestion, Denies neck fullness/pressure, Denies neck lump, Denies nose pain, Denies odynophagia, Denies post-nasal drip, Denies swelling in mouth, Denies swelling in throat, Denies sore throat, Denies vertigo, Denies voice changes Cardiovascular: Reports chest pain, Reports decreased exercise tolerance, Reports dyspnea on exertion, Reports edema, Reports high blood pressure, Reports irregular heart beat, Reports leg edema, Reports lightheadedness, Reports orthopnea, Reports paroxysmal nocturnal dyspnea, Reports shortness of breath, Denies as per HPI, Denies claudication, Denies palpitations, Denies phlebitis, Denies rapid heart beat, Denies syncope Respiratory: Reports congestion, Reports dyspnea, Reports pain, Reports sleep apnea, Denies as per HPI, Denies cough, Denies cough with sputum, Denies excessive sputum, Denies hemoptysis, Denies home oxygen, Denies pain on inspiration, Denies pleurisy, Denies respiratory infections, Denies snoring, Denies wheezing Gastrointestinal: Reports abdominal pain, Reports belching, Reports bloating, Reports dyspepsia, Reports early satiety, Reports nausea, Denies as per HPI, Denies BRBPR, Denies change in bowel habits, Denies coffee ground emesis, Denies constipation, Denies diarrhea, Denies excessive gas, Denies heartburn, Denies hematemesis, Denies hematochezia, Denies indigestion, Denies jaundice, Denies lactose intolerance, Denies loss of appetite, Denies melena, Denies vomiting Genitourinary: Reports nocturia, Reports urinary frequency, Denies as per HPI, Denies abnormal vaginal bleeding, Denies decreased libido, Denies difficulty conceiving, Denies difficulty voiding, Denies dysmenorrhea, Denies dyspareunia, Denies dysuria, Denies flank pain, Denies genital sores, Denies hematuria, Denies hot flashes, Denies incomplete emptying, Denies kidney stones, Denies menorrhagia, Denies mixed incontinence, Denies pelvic pain, Denies post void dribbling, Denies , Denies prolapse symptoms, Denies stress incontinence , Denies urge incontinence, Denies urgency, Denies vaginal discharge, Denies vaginal dryness, Denies vaginal itching, Denies vaginal odor Musculoskeletal: Reports loss of height, Reports low back pain, Reports morning stiffness, Reports myalgias, Reports neck pain, Denies as per HPI, Denies arm numbness/tingling, Denies atrophy, Denies fractures, Denies frequent falls, Denies gait dysfunction, Denies hot joints, Denies leg numbness/tingling, Denies limitation of motion, Denies muscle cramps, Denies muscle weakness, Denies neck stiffness, Denies prior amputations, Denies redness of joints, Denies shooting arm pain, Denies shooting leg pain Musculoskeletal: bilateral: ankle pain Integumentary: Reports pruritus, Reports rash, Denies as per HPI, Denies acne, Denies boils, Denies brittle nails, Denies change in hair/nails, Denies color changes, Denies darkening of skin, Denies depigmentation, Denies dryness, Denies foot/leg ulcers, Denies growths, Denies hirsutism, Denies lesions, Denies onychomycosis, Denies sores, Denies striae, Denies unusual bruising, Denies wounds Neurological: Reports tingling, Reports transient paralysis, Reports tremors, Denies as per HPI, Denies aphasia, Denies ataxia, Denies balance difficulties, Denies burning pain, Denies change in mentation, Denies change in smell/taste, Denies change in speech, Denies confusion, Denies convulsions, Denies double vision, Denies gait dysfunction, Denies head injury, Denies headaches, Denies hearing difficulties, Denies lack of coordination, Denies loss of vision, Denies memory loss, Denies migraines, Denies motor disturbance, Denies numbness , Denies paralysis, Denies paresthesias, Denies seizures, Denies sensory deficit , Denies spasticity, Denies syncope, Denies tic, Denies vertigo, Denies weakness , Denies visual changes Psychiatric: Reports anhedonia, Reports depression, Reports sadness/tearfulness , Denies as per HPI, Denies anxiety, Denies anxiety attacks, Denies change in appetite, Denies change in libido, Denies change in sleep habits, Denies confusion, Denies difficulty concentrating, Denies disorientation, Denies hallucinations, Denies hopelessness, Denies hypersomnia, Denies insomnia, Denies irritability, Denies memory loss, Denies mood swings, Denies paranoia, Denies sleep disturbances, Denies suicidal ideation Endocrine: Reports fatigue, Reports nocturia, Reports polydipsia, Reports polyphagia, Denies as per HPI, Denies cold intolerance, Denies deepening of the voice, Denies excessive sweating, Denies excessive thirst, Denies flushing, Denies heat intolerance, Denies high blood sugars, Denies increase in ring/shoe/ hat size, Denies low blood sugars, Denies palpitations, Denies polyuria, Denies proptosis, Denies recent glucocorticoid use, Denies thyroid mass, Denies weight change Hematologic/Lymphatic: Denies as per HPI, Denies easy bleeding, Denies easy bruising, Denies lymphadenopathy, Denies lymphedema, Denies thrombophilia Allergic/Immunologic: Denies as per HPI, Denies allergic rhinitis, Denies anaphylaxis, Denies angioedema, Denies gluten intolerance, Denies persistent infections, Denies seasonal allergies, Denies urticaria, Denies wheezing Past Medical History Past Medical History: Diabetes Mellitus, GERD/Reflux, Hyperlipidemia, Hypertension, Neurologic Disorder, Sleep Apnea/CPAP/BIPAP, Syncope Additional Past Medical History / Comment(s): " lt warped cornea", recurrant c/p ,uti's. Psoriasis, neuropathy, DDD, bursitis left hip, fractured left knee, IBS , diabetic retinopathy, duodenal ulcer, migraines, chronic back pain," ringing in ears", intermittent blurry vision" History of Any Multi-Drug Resistant Organisms: None Reported Past Surgical History: Adenoidectomy, Cholecystectomy, Tonsillectomy Additional Past Surgical History / Comment(s): endoscopy, colonoscopy, D&C, carpal tunnel surgery left arm, LT ARM SX FOR "PINCHED NERVE", LT THUMB TRIGGER FINGER. Past Anesthesia/Blood Transfusion Reactions: No Reported Reaction Additional Past Anesthesia/Blood Transfusion Reaction / Comment(s): difficulty waking from aa Past Psychological History: Anxiety, Depression, Panic Disorder Smoking Status: Former smoker Past Alcohol Use History: Occasional Past Drug Use History: None Reported - Past Family History Father Family Medical History: Cancer, Congestive Heart Failure (CHF), CVA/TIA, Hypertension, Syncope Additional Family Medical History / Comment(s): 1992 Mother Family Medical History: Diabetes Mellitus, Hypertension, Osteoarthritis (OA) Additional Family Medical History / Comment(s): MURMUR Sister(s) Family Medical History: Diabetes Mellitus, Hypertension Additional Family Medical History / Comment(s): Depression Medications and Allergies Home Medications Medication Instructions Recorded Confirmed Type DULoxetine HCL [Cymbalta] 60 mg PO DAILY 04/28/16 02/24/17 History Insulin Regular [humuLIN R] 15 units SQ AC-TID 04/28/16 02/24/17 History Losartan [Cozaar] 25 mg PO DAILY 04/28/16 02/24/17 History Sucralfate [Carafate] 1 gm PO TID 04/28/16 02/24/17 History metFORMIN HCL ER [Glucophage Xr] 500 mg PO AC-BRKFST 04/28/16 02/24/17 History Atenolol [Tenormin] 50 mg PO BID 09/11/16 02/24/17 History Gabapentin [Neurontin] 400 mg PO TID 09/11/16 02/24/17 History Ondansetron Odt [Zofran ODT] 4 mg PO Q12H PRN 09/11/16 02/24/17 History metFORMIN HCL ER [Glucophage Xr] 1,000 mg PO PC-SUPPER 09/11/16 02/24/17 History Pioglitazone HCl [Actos] 30 mg PO DAILY 11/06/16 02/24/17 History Atorvastatin [Lipitor] 20 mg PO HS 12/22/16 02/24/17 History Insulin Regular [HumuLIN R] See Protocol SQ AC-TID 12/22/16 02/24/17 History Beclomethasone Dipropionate [Qvar 1 puff INHALATION RT-BID 02/24/17 02/24/17 History 80 mcg] HYDROcodone/APAP 5-325MG [[place] 1 tab PO DAILY PRN 02/24/17 02/24/17 History 5-325] L. Rhamnosus GG/Inulin [[place] 1 tab PO DAILY 02/24/17 02/24/17 History Chewable Tablet] LORazepam [Ativan] 1 mg PO BID PRN 02/24/17 02/24/17 History Magnesium Oxide [Mag-Ox] 400 mg PO DAILY 02/24/17 02/24/17 History Methocarbamol [Robaxin] 500 - 1,000 mg PO QID PRN 02/24/17 02/24/17 History [place]-3 Fatty Acids/Fish Oil [Fish 1,000 mg PO DAILY 02/24/17 02/24/17 History Oil 1,000 mg Capsule] Allergies Allergy/AdvReac Type Severity Reaction Status Date / Time Iodinated Contrast Media - Allergy Itching Verified 02/24/17 15:15 Oral and [Iodinated Contrast Media - IV Dye] iodine Allergy Rash/Hives, Verified 02/24/17 15:15 ITCHING prednisone Allergy Rapid Verified 02/24/17 15:15 Heart Rate celecoxib [From Celebrex] AdvReac CAUSES GI Verified 02/24/17 15:15 BLEEDING cephalexin monohydrate AdvReac Vomiting Verified 02/24/17 15:15 [From Keflex] hydrocodone AdvReac Nausea & Verified 02/24/17 15:15 Vomiting Penicillins AdvReac Nausea & Verified 02/24/17 15:15 Vomiting Physical Exam Vitals: Vital Signs Temp Pulse Pulse Resp BP Pulse Ox 02/24/17 18:04 77 18 160/81 99 02/24/17 17:15 70 16 132/68 99 02/24/17 15:18 75 20 170/75 96 02/24/17 15:06 85 02/24/17 14:43 98.0 F 69 20 143/90 95 Intake and Output 02/24/17 02/24/17 02/24/17 06:59 14:59 22:59 Other: Weight 115.666 kg Patient Weight 02/25/17 06:59 Weight 115.666 kg - Constitutional General appearance: no average body habitus, cooperative, no disheveled, no mild distress, no morbidly obese, no acute distress, obese, no severe distress, no thin - EENT Eyes: no abnormal pupil, no anicteric sclerae, no disc margins sharp, no edentulous, no EOMI, no PERRLA, no fundus normal, no photophobia, no dentition normal, no poor dentition, no ptosis, no scleral icterus, normal appearance ENT: no hard of hearing, no hearing grossly normal, no NA/AT, normal oropharynx , no other, no pharyngeal erythema, no thrush, no tonsillar exudates, no tonsillar swelling Ears: bilateral: normal - Neck Neck: no lymphadenopathy, normal ROM, no other, no rigidity, no stridor, no thyromegaly Carotids: bilateral: upstroke normal Thyroid: bilateral: normal size - Respiratory Respiratory: bilateral: CTA, diminished - Cardiovascular Rhythm: regular Heart sounds: normal: S1, S2 Abnormal Heart Sounds: systolic murmur, S3 Gallop - Gastrointestinal General gastrointestinal: no absent bowel sounds, no decreased bowel sounds, distended, no hepatomegaly, no hyperactive bowel sounds, no normal bowel sounds , no organomegaly, no rigid, no scaphoid, soft, no splenomegaly, no tenderness, no umbilical hernia, no ventral hernia - Integumentary Integumentary: no calor, no cellulitis, no cyanotic, no decreased turgor, no flushed, no jaundiced, normal, no normal turgor, pale, rash, no ulcer - Neurologic Neurologic: CNII-XII intact - Musculoskeletal Musculoskeletal: gait normal, generalized weakness, strength equal bilaterally, no right sided weakness, no left sided weakness - Psychiatric Psychiatric: A&O x's 3, appropriate affect Results CBC & Chem 7: 02/24/17 15:15 02/24/17 15:15 Labs: Abnormal Lab Results - Last 24 Hours (Table) 02/24/17 Range/Units 15:15 Glucose 182 H (74-99) mg/dL Magnesium 1.5 L (1.6-2.3) mg/dL Thrombosis Risk Factor Assmnt - DVT/VTE Prophylaxis DVT/VTE Prophylaxis: Pharmacologic Prophylaxis ordered, Mechanical Prophylaxis ordered Assessment and Plan Plan: 1 chest pain: Atypical although cannot exclude atypical angina at this time. Patient be seeing cardiology review her testing from before CK with troponin 3 will be done at [place] and if needed to go for any further testing will be done. 2 significant arrhythmia: Patient apparently seen Dr. العراقي will be going for repeat testing and possible need for ablation. 3 diabetes: Patient remain on metformin ex RR 500 mg before meals breakfast and 1000 g at supper time continue Actos a 50 mg daily continue Humulin before meals meals. 4 hypertension: Remain on losartan 25 mg daily along with Tenormin 50 mg twice a day. 5 hyperlipidemia: Still on Lipitor 20 mg daily. 6 severe GERD: Has been on Carafate and Pepcid as needed. 7 depression: Has been on Cymbalta 60 mg a day still on lorazepam 1 mg twice a day as needed. 8 chronic neuropathy: Has been on gabapentin 400 mg 3 times a day. 9 chronic pain syndrome: Has been on hydrocodone along with Robaxin. Ex 10 obstructive sleep apnea: Continue to use CPAP tonight. 11 GI prophylaxis: Patient be on Pepcid 20 mg daily. 12 DVT prophylaxis: Patient will be on heparin 5000 units subcutaneous 3 times a day. 13 CODE STATUS: Full code. Expectation from's admission: Patient be in the hospital for 1-2 nights.
--- NOTE | 2017-02-25 10:11 | P.DS ---
Providers Date of admission: 02/24/17 17:36 Attending physician: Arsh Sanchez Consults: 02/24/17 17:37 Consult Physician Urgent Consulting Provider: Allan Chang Consult Reason/Comments: ua Do you want consulting provider notified?: Yes Primary care physician: Link Langley Hospital Course: Chief Complaint: Chest pain and unstable angina, palpitation and arrhythmia, diabetes, hyper 46-year-old female overweight [address] Langley's patient with the past medical history of diabetes, hypertension, hyperlipidemia, neuropathy, sleep apnea and recurrent syncope who was hospitalized back in 11/06/2016 4 palpitation recurrent chest pain. Patient was seen cardiology at the time and has been seen Dr. العراقي all along. Patient apparently schedule in March to go for electrophysiology study and possible need ablation therapy. Patient presented to [facility] today complaining of worsening chest discomfort 8 out of 10 associated with dyspnea with exertion and worsening symptom with deep inspiration patient has been having significant palpitation and lightheadedness fainting symptoms and such she had mild nausea with no emesis at the time. Patient made it to [facility] her CK with troponin did not show any abnormality patient is known to have multiple risk factor for heart disease patient will be admitted for the above problem. 1 chest pain: Atypical although cannot exclude atypical angina at this time. Patient be seeing cardiology review her testing from before CK with troponin 3 will be done at [facility] and if needed to go for any further testing will be done. 2 significant arrhythmia: Patient apparently seen Dr. العراقي will be going for repeat testing and possible need for ablation. 3 diabetes: Patient remain on metformin ex RR 500 mg before meals breakfast and 1000 g at supper time continue Actos a 50 mg daily continue Humulin before meals meals. 4 hypertension: Remain on losartan 25 mg daily along with Tenormin 50 mg twice a day. 5 hyperlipidemia: Still on Lipitor 20 mg daily. 6 severe GERD: Has been on Carafate and Pepcid as needed. 7 depression: Has been on Cymbalta 60 mg a day still on lorazepam 1 mg twice a day as needed. 8 chronic neuropathy: Has been on gabapentin 400 mg 3 times a day. 9 chronic pain syndrome: Has been on hydrocodone along with Robaxin. Ex 10 obstructive sleep apnea: Continue to use CPAP tonight. 11 GI prophylaxis: Patient be on Pepcid 20 mg daily. Hospital Course: seen and clear by Cardiology, no testing need, will see Dr العراقي for EP in 2 weeks, added Imdyr and Xopenx and was stable for discharge today. Plan - Discharge Summary New Discharge Prescriptions: New Aspirin 81 mg PO DAILY Isosorbide Mononitrate ER [Imdur] 30 mg PO DAILY #30 tab Levalbuterol Hfa Inhaler [Xopenex Hfa Inhaler] 2 puff INHALATION Q6HR PRN #1 inhaler PRN Reason: Wheezing Nitroglycerin Sl Tabs [Nitrostat] 0.4 mg SUBLINGUAL Q5M PRN #25 tab PRN Reason: Chest Pain Continue Clopidogrel [Plavix] 75 mg PO DAILY #30 tab Insulin Regular [humuLIN R] 15 units SQ AC-TID Sucralfate [Carafate] 1 gm PO TID DULoxetine HCL [Cymbalta] 60 mg PO DAILY Losartan [Cozaar] 25 mg PO DAILY metFORMIN HCL ER [Glucophage Xr] 500 mg PO AC-BRKFST Ondansetron Odt [Zofran ODT] 4 mg PO Q12H PRN PRN Reason: Nausea Gabapentin [Neurontin] 400 mg PO TID metFORMIN HCL ER [Glucophage Xr] 1,000 mg PO PC-SUPPER Atenolol [Tenormin] 50 mg PO BID Pioglitazone HCl [Actos] 30 mg PO DAILY Aspirin EC [Ecotrin Low Dose] 81 mg PO DAILY #30 tablet. Insulin Regular [humuLIN R] See Protocol SQ AC-TID Atorvastatin [Lipitor] 20 mg PO HS Beclomethasone Dipropionate [Qvar 80 mcg] 1 puff INHALATION RT-BID HYDROcodone/APAP 5-325MG [[place] 5-325] 1 tab PO DAILY PRN PRN Reason: Pain L. Rhamnosus GG/Inulin [Culturelle Chewable Tablet] 1 tab PO DAILY LORazepam [Ativan] 1 mg PO BID PRN PRN Reason: Anxiety Magnesium Oxide [Mag-Ox] 400 mg PO DAILY Methocarbamol [Robaxin] 500 - 1,000 mg PO QID PRN PRN Reason: Pain [place]-3 Fatty Acids/Fish Oil [Fish Oil 1,000 mg Capsule] 1,000 mg PO DAILY Discharge Medication List Clopidogrel [Plavix] 75 mg PO DAILY #30 tab 06/29/15 [Rx] DULoxetine HCL [Cymbalta] 60 mg PO DAILY 04/28/16 [History] Insulin Regular [humuLIN R] 15 units SQ AC-TID 04/28/16 [History] Losartan [Cozaar] 25 mg PO DAILY 04/28/16 [History] Sucralfate [Carafate] 1 gm PO TID 04/28/16 [History] metFORMIN HCL ER [Glucophage Xr] 500 mg PO AC-BRKFST 04/28/16 [History] Atenolol [Tenormin] 50 mg PO BID 09/11/16 [History] Gabapentin [Neurontin] 400 mg PO TID 09/11/16 [History] Ondansetron Odt [Zofran ODT] 4 mg PO Q12H PRN 09/11/16 [History] metFORMIN HCL ER [Glucophage Xr] 1,000 mg PO PC-SUPPER 09/11/16 [History] Pioglitazone HCl [Actos] 30 mg PO DAILY 11/06/16 [History] Aspirin EC [Ecotrin Low Dose] 81 mg PO DAILY #30 tablet. 11/07/16 [Rx] Atorvastatin [Lipitor] 20 mg PO HS 12/22/16 [History] Insulin Regular [humuLIN R] See Protocol SQ AC-TID 12/22/16 [History] Beclomethasone Dipropionate [Qvar 80 mcg] 1 puff INHALATION RT-BID 02/24/17 [ History] HYDROcodone/APAP 5-325MG [[place] 5-325] 1 tab PO DAILY PRN 02/24/17 [History] L. Rhamnosus GG/Inulin [Culturelle Chewable Tablet] 1 tab PO DAILY 02/24/17 [ History] LORazepam [Ativan] 1 mg PO BID PRN 02/24/17 [History] Magnesium Oxide [Mag-Ox] 400 mg PO DAILY 02/24/17 [History] Methocarbamol [Robaxin] 500 - 1,000 mg PO QID PRN 02/24/17 [History] [place]-3 Fatty Acids/Fish Oil [Fish Oil 1,000 mg Capsule] 1,000 mg PO DAILY 02/24 [History] Aspirin 81 mg PO DAILY 02/25/17 [Rx] Isosorbide Mononitrate ER [Imdur] 30 mg PO DAILY #30 tab 02/25/17 [Rx] Levalbuterol Hfa Inhaler [Xopenex Hfa Inhaler] 2 puff INHALATION Q6HR PRN #1 inhaler 02/25/17 [Rx] Nitroglycerin Sl Tabs [Nitrostat] 0.4 mg SUBLINGUAL Q5M PRN #25 tab 02/25/17 [Rx ] Follow up Appointment(s)/Referral(s): Link Langley MD [Primary Care Provider] - 1-2 days
[2017-02-25] MEDS: ATENOLOL 50 MG TAB PO SCH (10:25)
[2017-02-25] MEDS: GABAPENTIN 400 MG CAP PO SCH (10:26)
[2017-02-25] MEDS: INSULIN REGULAR 100 UNIT/ML VIAL SQ SCH ×2 (10:33→13:13)
[2017-02-25 12:16] VITALS: BP 144/70; PULSE 70; RESP 16; TEMP 97.9
[2017-02-25 12:21] LABS: Glucose,Whole Blood 200 mg/dL (75-99)
--- NOTE | 2017-02-25 12:49 | CONS ---
DATE OF CONSULTATION: Mrs. Andrade is a 46-year-old female with known history of hypertension, hyperlipidemia, and diabetes mellitus, who presented with symptoms of chest discomfort. Patient has no history of coronary artery disease, has underwent cardiac catheterization in February 2015, has no evidence of obstructive coronary artery disease. She yesterday had chest discomfort. The discomfort was worse with deep breathing. She had similar symptoms in the past and has been under increased amount of stress recently. She has some dyspnea as well as dizziness and palpitation. Because of the palpitations, she was seen by Dr. العراقي and she has been evaluated for possible EP study. Patient has no history of PND, orthopnea. She has no syncope. She has some dizziness. She had an event monitor done in the past that revealed no evidence of abnormalities. Her left ventricular systolic function in the past has been normal. Her coronary risk factors are positive for hypertension, hyperlipidemia, and diabetes mellitus. Her medications at home include metformin, Carafate, Zofran, Robaxin, insulin, Lipitor 20 mg daily, Actos, Cozaar 25 mg daily, Plavix 75 mg daily, Tenormin 50 mg twice a day, aspirin once a day. REVIEW OF SYSTEMS: RESPIRATORY SYSTEM: She has dyspnea on exertion, but no recent wheezing or cough. GI SYSTEM: No recent GI bleed. No peptic ulcer disease. SYSTEM: No dysuria or hematuria. NERVOUS SYSTEM: No history of seizure. PHYSICAL EXAMINATION: She is a 46-year-old female, alert, oriented, in no apparent distress, overweight. Blood pressure 127/70 with the heart rate in 70s. HEAD: Normocephalic. EYES: Sclerae nonicteric. NECK: Good upstroke. No bruit. No jugular venous distention. LUNGS: Clear to auscultation. HEART: Regular rate rhythm. S1, S2, no S3 with a systolic murmur at the base. No diastolic murmur. No rub. ABDOMEN: Soft, obese, nontender. Positive bowel sounds. No organomegaly. EXTREMITIES: No edema. Lab data revealed troponin of less than 0.012. Cholesterol 133, LDL of 73. Potassium 4.0. BUN and creatinine of 13 and 0.7. Hemoglobin of 11.6. NT-proBNP is 326. IMPRESSION: 1. Chest discomfort, atypical for ischemic heart disease, appears to be respiratory in pattern in a patient had underwent cardiac catheterization 2 years ago and revealed no evidence of obstructive coronary artery disease. 2. History of hypertension. 3. Hyperlipidemia. 4. Diabetes mellitus. 5. Palpitation with no evidence of malignant arrhythmia. Workup in the past has been unremarkable. RECOMMENDATIONS: From the cardiac standpoint, I will stop her heparin. I will increase her activity. I will add to her regimen nitrate for the possible vasospastic disease. If she remains stable, I would expect she should be able to be discharged home and follow as an outpatient after her EP studies. I have discussed those finding with the patient. She is in full understanding and agreement. Thank you for this consult. We will follow with you.
== END 2017-02-25 13:45 | disposition home or self-care (01) ==
LOC: EC 14:38 → 3OBS 17:36
PROVIDERS: ADMIT Internal Medicine Geriatric Medicine; ATTEND Internal Medicine Geriatric Medicine
DX: I20.0 Unstable angina (principal); K21.9 Gastro-esophageal reflux disease without esophagitis; E78.5 Hyperlipidemia, unspecified; I10 Essential (primary) hypertension; E11.319 Type 2 diabetes mellitus with unspecified diabetic retinopathy without macular edema; G43.909 Migraine, unspecified, not intractable, without status migrainosus; M54.9 Dorsalgia, unspecified; K58.9 Irritable bowel syndrome, unspecified; L40.9 Psoriasis, unspecified; F32.9 Major depressive disorder, single episode, unspecified; F41.0 Panic disorder [episodic paroxysmal anxiety]; Z87.891 Personal history of nicotine dependence; Z82.49 Family history of ischemic heart disease and other diseases of the circulatory system; Z79.899 Other long term (current) drug therapy; Z79.4 Long term (current) use of insulin; Z79.84 Long term (current) use of oral hypoglycemic drugs; Z79.02 Long term (current) use of antithrombotics/antiplatelets; Z79.82 Long term (current) use of aspirin; Z88.5 Allergy status to narcotic agent; Z88.0 Allergy status to penicillin; Z88.8 Allergy status to other drugs, medicaments and biological substances; Z88.3 Allergy status to other anti-infective agents; Z91.041 Radiographic dye allergy status; G47.33 Obstructive sleep apnea (adult) (pediatric); Z87.11 Personal history of peptic ulcer disease; G89.4 Chronic pain syndrome; E66.9 Obesity, unspecified; Z68.41 Body mass index [BMI] 40.0-44.9, adult
CPT/HCPCS: 96365; 96366 ×2; 96375; 99285; 36415; 94640; 93005; 85379; 83880; 80061; 80053; 82550 ×2; 82553 ×2; 83735; 84484 ×2; 85025; 85049; 85610; 85730 ×2; 71020; G0378 ×2; J2060; J1644 ×2; J2405

== ENCOUNTER 2017-02-26 18:48 | Emergency (ER) | payer OTHER ==
[2017-02-26] MEDS: ASPIRIN 81 MG CHEW PO STA (20:03)
[2017-02-26] MEDS: SODIUM CHLORIDE 0.9% 1,000 ML IV STA (20:03)
[2017-02-26] MEDS: NITROGLYCERIN OINT 1 INCH/GM PACKET TOPICAL STA (20:03)
--- NOTE | 2017-02-26 20:05 | ED ---
Chest Pain HPI - General Chief Complaint: Chest Pain Stated Complaint: chest pain,diff breathing Time Seen by Provider: 02/26/17 19:40 Source: patient, RN notes reviewed, old records reviewed Mode of arrival: wheelchair Limitations: no limitations - History of Present Illness Initial Comments: This is a 46-year-old female who was recently admitted to the hospital and discharged yesterday after evaluation for chest pain who states she hasn't gotten any better since discharge she complains of midsternal chest pain that radiates to her back and left side was more than 8/10 severity did come down 8 after nitroglycerin. She also complains of shortness and some sweats but no fevers chills. She is insulin-dependent diabetic she does have a history she states of heart disease she is a former smoker but quit in 1989 she states. MD Complaint: chest pain - Related Data Home Medications Medication Instructions Recorded Confirmed DULoxetine HCL [Cymbalta] 60 mg PO DAILY 04/28/16 02/26/17 Insulin Regular [humuLIN R] 15 units SQ AC-TID 04/28/16 02/26/17 Losartan [Cozaar] 25 mg PO DAILY 04/28/16 02/26/17 Sucralfate [Carafate] 1 gm PO BID 04/28/16 02/26/17 metFORMIN HCL ER [Glucophage Xr] 500 mg PO AC-BRKFST 04/28/16 02/26/17 Atenolol [Tenormin] 50 mg PO BID 09/11/16 02/26/17 Gabapentin [Neurontin] 400 mg PO TID 09/11/16 02/26/17 Ondansetron Odt [Zofran ODT] 4 mg PO Q12H PRN 09/11/16 02/26/17 metFORMIN HCL ER [Glucophage Xr] 1,000 mg PO PC-SUPPER 09/11/16 02/26/17 Pioglitazone HCl [Actos] 30 mg PO DAILY 11/06/16 02/26/17 Atorvastatin [Lipitor] 20 mg PO HS 12/22/16 02/26/17 Insulin Regular [humuLIN R] See Protocol SQ AC-TID 12/22/16 02/26/17 Beclomethasone Dipropionate [Qvar 1 puff INHALATION RT-BID 02/24/17 02/26/17 80 mcg] HYDROcodone/APAP 5-325MG [[place] 1 tab PO Q6H PRN 02/24/17 02/26/17 5-325] L. Rhamnosus GG/Inulin [Culturelle 1 tab PO DAILY 02/24/17 02/26/17 Chewable Tablet] LORazepam [Ativan] 1 mg PO BID PRN 02/24/17 02/26/17 Magnesium Oxide [Mag-Ox] 400 mg PO DAILY 02/24/17 02/26/17 Methocarbamol [Robaxin] 500 - 1,000 mg PO QID PRN 02/24/17 02/26/17 [place]-3 Fatty Acids/Fish Oil [Fish 1 cap PO DAILY 02/24/17 02/26/17 Oil 1,000 mg Capsule] Levalbuterol Hfa Inhaler [Xopenex 2 puff INHALATION RT-Q6H PRN 02/26/17 02/26/17 Hfa Inhaler] Previous Rx's Medication Instructions Recorded Clopidogrel [Plavix] 75 mg PO DAILY #30 tab 06/29/15 Aspirin EC [Ecotrin Low Dose] 81 mg PO DAILY #30 tablet. 11/07/16 Isosorbide Mononitrate ER [Imdur] 30 mg PO DAILY #30 tab 02/25/17 Nitroglycerin Sl Tabs [Nitrostat] 0.4 mg SUBLINGUAL Q5M PRN #25 tab 02/25/17 Allergies Allergy/AdvReac Type Severity Reaction Status Date / Time Iodinated Contrast Media - Allergy Itching Verified 02/26/17 20:50 Oral and [Iodinated Contrast Media - IV Dye] iodine Allergy Rash/Hives, Verified 02/26/17 20:50 ITCHING prednisone Allergy Rapid Verified 02/26/17 20:50 Heart Rate tramadol Allergy Unknown Verified 02/26/17 20:50 celecoxib [From Celebrex] AdvReac CAUSES GI Verified 02/26/17 20:50 BLEEDING cephalexin monohydrate AdvReac Vomiting Verified 02/26/17 20:50 [From Keflex] hydrocodone AdvReac Nausea & Verified 02/26/17 20:50 Vomiting Penicillins AdvReac Nausea & Verified 02/26/17 20:50 Vomiting Review of Systems ROS Statement: Those systems with pertinent positive or pertinent negative responses have been documented in the HPI. ROS Other: All systems not noted in ROS Statement are negative. EKG Findings - EKG Results: EKG: interpreted by ERMD (EKG done upon admission initially read by Dr. Guzmán showed a sinus rhythm of 93 CA interval 146 QRS of 72 QT/QTC of 368/457 [address] progression no acute [address]-T wave elevations or depressions.) Past Medical History Past Medical History: Diabetes Mellitus, GERD/Reflux, Hyperlipidemia, Hypertension, Neurologic Disorder, Sleep Apnea/CPAP/BIPAP, Syncope Additional Past Medical History / Comment(s): " lt warped cornea", recurrant c/p ,uti's. Psoriasis, neuropathy, DDD, bursitis left hip, fractured left knee, IBS , diabetic retinopathy, duodenal ulcer, migraines, chronic back pain," ringing in ears", intermittent blurry vision" History of Any Multi-Drug Resistant Organisms: None Reported Past Surgical History: Adenoidectomy, Cholecystectomy, Tonsillectomy Additional Past Surgical History / Comment(s): endoscopy, colonoscopy, D&C, carpal tunnel surgery left arm, LT ARM SX FOR "PINCHED NERVE", LT THUMB TRIGGER FINGER. Past Anesthesia/Blood Transfusion Reactions: No Reported Reaction Additional Past Anesthesia/Blood Transfusion Reaction / Comment(s): difficulty waking from aa Past Psychological History: Anxiety, Depression, Panic Disorder Smoking Status: Former smoker Past Alcohol Use History: Occasional Past Drug Use History: None Reported - Past Family History Father Family Medical History: Cancer, Congestive Heart Failure (CHF), CVA/TIA, Hypertension, Syncope Additional Family Medical History / Comment(s): 1992 Mother Family Medical History: Diabetes Mellitus, Hypertension, Osteoarthritis (OA) Additional Family Medical History / Comment(s): MURMUR Sister(s) Family Medical History: Diabetes Mellitus, Hypertension Additional Family Medical History / Comment(s): Depression General Exam - General Exam Comments Initial Comments: This is a well-developed well-nourished awake alert anxious appearing female Limitations: no limitations General appearance: alert, anxious Head exam: Present: atraumatic, normocephalic, normal inspection Eye exam: Present: normal appearance, PERRL, EOMI. Absent: scleral icterus, conjunctival injection, periorbital swelling ENT exam: Present: normal exam, mucous membranes moist Neck exam: Present: normal inspection. Absent: tenderness, meningismus, lymphadenopathy Respiratory exam: Present: normal lung sounds bilaterally. Absent: respiratory distress, wheezes, rales, rhonchi, stridor, chest wall tenderness Cardiovascular Exam: Present: regular rate, normal rhythm, normal heart sounds. Absent: systolic murmur, diastolic murmur, rubs, gallop, clicks GI/Abdominal exam: Present: soft, normal bowel sounds, other (Obese abdomen). Absent: distended, tenderness, guarding, rebound, rigid Extremities exam: Present: normal inspection, full ROM, normal capillary refill. Absent: tenderness, pedal edema, joint swelling, calf tenderness Back exam: Present: normal inspection Neurological exam: Present: alert, oriented X3, CN II-XII intact Psychiatric exam: Present: normal affect, normal mood Skin exam: Present: warm, dry, intact, normal color. Absent: rash Course Vital Signs 02/26/17 02/26/17 02/26/17 19:10 20:05 21:04 Temperature 98.6 F Pulse Rate 88 78 81 Respiratory 18 20 18 Rate Blood Pressure 138/71 129/58 147/72 O2 Sat by Pulse 98 97 97 Oximetry 02/26/17 02/26/17 02/26/17 21:32 22:13 23:15 Temperature Pulse Rate 92 87 90 Respiratory 20 20 20 Rate Blood Pressure 140/64 163/92 125/67 O2 Sat by Pulse 95 96 95 Oximetry Chest Pain MDM - MDM The patient was reevaluated on multiple occasions she did have a hypoglycemic episodes which were fairly resolved after oral fluid intake. The cardiac workup is negative. The patient will be discharged she will follow-up with cardiology and Dr. Langley. Disposition Clinical Impression: Chest wall syndrome, Multiple episodes of hypoglycemia Disposition: HOME SELF-CARE Condition: Good Instructions: Chest Pain (ED), Costochondritis (ED), Hypoglycemia in a Person with Diabetes (ED) Referrals: Link Langley MD [Primary Care Provider] - 1-2 days
[2017-02-26 20:09] LABS: Basophils % (A) 1 %; CH 27.5; CHCM 31.5; Eosinophils # (A) 0.3 k/uL (0-0.7); Eosinophils % (A) 3 %; HCT 37.1 % (34.0-46.0); HDW 2.94; HGB 11.3 gm/dL (11.4-16.0); Hypochromasia Slight; Luc # (Auto) 0.11; Luc % (Auto) 1; Lymphocytes # (A) 1.4 k/uL (1.0-4.8); Lymphocytes % (A) 18 %; MCH 26.7 pg (25.0-35.0); MCHC 30.4 g/dL (31.0-37.0); MCV 87.9 fL (80.0-100.0); Mean Platelet Volume 7.8; Monocytes # (A) 0.3 k/uL (0-1.0); Monocytes % (A) 4 %; Neutrophils # (A) 5.7 k/uL (1.3-7.7); Neutrophils % (A) 72 %; RBC 4.22 m/uL (3.80-5.40); RDW 15.6 % (11.5-15.5); WBC 7.8 k/uL (3.8-10.6); WBC (Perox) 8.06
[2017-02-26 20:22] LABS: INR 1.1 (<1.1); Prothrombin Time 10.7 sec (9.0-12.0)
[2017-02-26 20:23] LABS: ALT 40 U/L (9-52); AST 24 U/L (14-36); Alkaline Phosphatase 91 U/L (38-126); Amylase 49 U/L (30-110); Anion Gap 12 mmol/L; Blood Urea Nitrogen 19 mg/dL (7-17); Calcium 9.2 mg/dL (8.4-10.2); Carbon Dioxide 28 mmol/L (22-30); Chloride 102 mmol/L (98-107); Glucose 119 mg/dL (74-99); Magnesium 1.8 mg/dL (1.6-2.3); Non-African American GFR(MDRD) 59 (>60 ml/min/1.73 sqM); Partial Thromboplastin Time 23.7 sec (22.0-30.0); Potassium 4.1 mmol/L (3.5-5.1); Sodium 142 mmol/L (137-145); Total Bilirubin 0.5 mg/dL (0.2-1.3); Total Protein 6.7 g/dL (6.3-8.2)
[2017-02-26 20:29] LABS: Creatine Kinase 47 U/L (30-135)
[2017-02-26] MEDS: ACETAMINOPHEN TAB 500 MG TAB PO STA (20:40)
[2017-02-26 20:42] LABS: Troponin I <0.012 ng/mL (0.000-0.034)
[2017-02-26 20:52] LABS: Creatine Kinase MB 0.6 ng/mL (0.0-2.4)
--- NOTE | 2017-02-26 20:55 | XR ---
EXAMINATION TYPE: XR chest 2V DATE OF EXAM: 02/26/2017 COMPARISON: 02/24/2017 HISTORY: Chest pain TECHNIQUE: Frontal and lateral views of the chest are obtained. FINDINGS: There is some pulmonary vascular congestion. There is no definite pleural effusion. There is poor inspiration. There is coarsening of interstitial markings. Heart size is normal. IMPRESSION: Compared to recent exam there is new mild pulmonary vascular congestion that is suggesti ve of mild heart failure. No pulmonary consolidation.
[2017-02-26 21:28] LABS: Glucose,Whole Blood 59 mg/dL (75-99)
[2017-02-26] MEDS: KETOROLAC 30 MG/ML 1 ML VIAL IVP STA (21:28)
[2017-02-26 21:49] LABS: Glucose,Whole Blood 70 mg/dL (75-99)
[2017-02-26 22:08] LABS: Glucose,Whole Blood 59 mg/dL (75-99)
[2017-02-26 22:33] LABS: Glucose,Whole Blood 64 mg/dL (75-99)
[2017-02-26 22:53] LABS: Glucose,Whole Blood 88 mg/dL (75-99)
[2017-02-26 23:17] LABS: Glucose,Whole Blood 96 mg/dL (75-99)
[2017-02-26 23:49] VITALS: BP 113/59; PULSE 91; RESP 18; TEMP 97.6
== END 2017-02-26 23:49 | disposition home or self-care (01) ==
LOC: EC 18:48
DX: E11.649 Type 2 diabetes mellitus with hypoglycemia without coma (principal); E78.5 Hyperlipidemia, unspecified; I10 Essential (primary) hypertension; E11.319 Type 2 diabetes mellitus with unspecified diabetic retinopathy without macular edema; G89.29 Other chronic pain; G62.9 Polyneuropathy, unspecified; F32.9 Major depressive disorder, single episode, unspecified; F41.9 Anxiety disorder, unspecified; Z87.891 Personal history of nicotine dependence; Z79.4 Long term (current) use of insulin; Z79.51 Long term (current) use of inhaled steroids; Z79.84 Long term (current) use of oral hypoglycemic drugs; Z79.899 Other long term (current) drug therapy; Z88.0 Allergy status to penicillin; Z88.1 Allergy status to other antibiotic agents; Z88.5 Allergy status to narcotic agent; Z88.6 Allergy status to analgesic agent; Z88.8 Allergy status to other drugs, medicaments and biological substances; Z91.041 Radiographic dye allergy status; Z91.09 Other allergy status, other than to drugs and biological substances; Z87.19 Personal history of other diseases of the digestive system; Z83.3 Family history of diabetes mellitus
CPT/HCPCS: 36415; 93005; 85379; 83880; 80053; 82150; 82550; 82553; 83690; 83735; 84484; 85025; 85610; 85730; 71020; 99285; 96374; 96361 ×4; J1885

== ENCOUNTER 2017-03-16 16:30 | Emergency (ER) | payer OTHER ==
[2017-03-16] MEDS ORDERED: KETOROLAC 30 MG/ML 1 ML VIAL IVP STA (18:46)
[2017-03-16] MEDS ORDERED: METOCLOPRAMIDE 5 MG/ML 2 ML VIAL IVP STA (18:46)
[2017-03-16] MEDS ORDERED: diphenhydrAMINE 50 MG/ML 1 ML VIAL IVP STA (18:46)
[2017-03-16] MEDS ORDERED: DEXAMETHASONE SOD PHOSPHATE 10 MG/ML 1 ML VIAL IV STA (18:46)
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
[2017-03-16 19:10] LABS: INR 1.1 (<1.1); Prothrombin Time 10.8 sec (9.0-12.0)
[2017-03-16 19:14] LABS: Basophils % (A) 1 %; CH 26.7; Eosinophils # (A) 0.2 k/uL (0-0.7); Eosinophils % (A) 3 %; HCT 39.3 % (34.0-46.0); HDW 2.97; HGB 13.3 gm/dL (11.4-16.0); Luc # (Auto) 0.11; Luc % (Auto) 1; Lymphocytes # (A) 1.6 k/uL (1.0-4.8); Lymphocytes % (A) 19 %; MCH 27.5 pg (25.0-35.0); MCHC 33.7 g/dL (31.0-37.0); Mean Platelet Volume 6.6; Monocytes # (A) 0.4 k/uL (0-1.0); Monocytes % (A) 5 %; Neutrophils # (A) 5.8 k/uL (1.3-7.7); Neutrophils % (A) 72 %; RBC 4.82 m/uL (3.80-5.40); RDW 14.9 % (11.5-15.5); WBC 8.1 k/uL (3.8-10.6); WBC (Perox) 7.46
[2017-03-16 19:16] LABS: Anion Gap 14 mmol/L; Blood Urea Nitrogen 18 mg/dL (7-17); Calcium 10.1 mg/dL (8.4-10.2); Carbon Dioxide 28 mmol/L (22-30); Chloride 102 mmol/L (98-107); Glucose 93 mg/dL (74-99); Non-African American GFR(MDRD) >60 (>60 ml/min/1.73 sqM); Potassium 3.9 mmol/L (3.5-5.1); Sodium 144 mmol/L (137-145)
[2017-03-16 19:19] LABS: MCV 81.6 fL (80.0-100.0)
--- NOTE | 2017-03-16 20:01 | CT ---
EXAMINATION TYPE: CT brain wo con DATE OF EXAM: 03/16/2017 COMPARISON: NONE HISTORY: Headache with facial tingling and nubmness to tongue and lips. CT DLP: 995.50 mGycm. Automated Exposure Control for Dose Reduction was Utilized. TECHNIQUE: CT scan of the head is performed without contrast. FINDINGS: There is no acute intracranial hemorrhage, mass effect, or midline shift identified. The ventricles and sulci are within normal limits in size. The globes are intact and the visualized sin uses are clear. IMPRESSION: No acute intracranial hemorrhage, mass effect, or midline shift is seen.
[2017-03-16 20:39] VITALS: RESP 16
[2017-03-16] MEDS ORDERED: ONDANSETRON 4 MG/2 ML VIAL IVP STA (20:40)
[2017-03-16 21:04] LABS: Glucose,CSF 67 mg/dL (40-70)
[2017-03-16 21:39] LABS: Appearance,CSF Clear
[2017-03-16 22:11] VITALS: BP 124/62; PULSE 90; TEMP 97.4
== END 2017-03-16 22:08 | disposition home or self-care (01) ==
LOC: EC 16:30
DX: G43.909 Migraine, unspecified, not intractable, without status migrainosus (principal); E11.40 Type 2 diabetes mellitus with diabetic neuropathy, unspecified; E11.319 Type 2 diabetes mellitus with unspecified diabetic retinopathy without macular edema; E78.5 Hyperlipidemia, unspecified; F41.9 Anxiety disorder, unspecified; F32.9 Major depressive disorder, single episode, unspecified; Z79.899 Other long term (current) drug therapy; Z79.02 Long term (current) use of antithrombotics/antiplatelets; Z79.51 Long term (current) use of inhaled steroids; Z79.4 Long term (current) use of insulin; Z79.84 Long term (current) use of oral hypoglycemic drugs; Z91.048 Other nonmedicinal substance allergy status; Z87.440 Personal history of urinary (tract) infections; Z88.1 Allergy status to other antibiotic agents; Z88.5 Allergy status to narcotic agent; Z88.0 Allergy status to penicillin; Z88.8 Allergy status to other drugs, medicaments and biological substances; Z91.041 Radiographic dye allergy status; I10 Essential (primary) hypertension; Z87.891 Personal history of nicotine dependence
CPT/HCPCS: 36415; 84157; 80048; 82945; 85025; 85610; 89050; 87070; 87205; 70450; 62270; 99284; 96374; 96375; J1200; J1100; J2765; J2405; J1885

== ENCOUNTER 2017-04-23 06:03 | Day surgery (SDC) | payer OTHER ==
[2017-04-16 12:07] VITALS: BMI 43.2
[2017-04-23] MEDS ORDERED: LACTATED RINGERS 1,000 ML IV SCH (06:14)
[2017-04-23] MEDS ORDERED: SODIUM CHLORIDE 0.9% 1,000 ML IV SCH (06:14)
[2017-04-23 06:40] LABS: Glucose,Whole Blood 261 mg/dL (75-99)
[2017-04-23] MEDS ORDERED: INSULIN LISPRO (humaLOG) 300 UNIT/3 ML VIAL SQ ONE (06:41)
[2017-04-23] MEDS ORDERED: MIDAZOLAM 2 MG/2 ML VIAL ONE (07:20)
[2017-04-23] MEDS ORDERED: fentaNYL (PF) 50 MCG/ML 2 ML AMP ONE (07:20)
[2017-04-23] MEDS ORDERED: VERAPAMIL 2.5 MG/ML 4 ML VIAL ONE (07:20)
[2017-04-23] MEDS ORDERED: PROPOFOL 10 MG/ML 20 ML VIAL IV ONE (07:20)
[2017-04-23] MEDS ORDERED: ISOPROTERENOL 250 MCG/1.25 ML SYR IV ONE (07:20)
[2017-04-23] MEDS ORDERED: LIDOCAINE 2% INJ 20 MG/ML SQ ONE (07:50)
[2017-04-23] MEDS ORDERED: ADENOSINE 3 MG/ML 4 ML VIAL IVP ONE (08:23)
[2017-04-23] MEDS ORDERED: VERAPAMIL 2.5 MG/ML 2 ML AMP IVP STA (09:13)
[2017-04-23] MEDS ORDERED: NAPROXEN 250 MG TAB PO PRN (09:14)
[2017-04-23] MEDS ORDERED: HYDROcodone/APAP 5-325MG 1 EACH TAB PO PRN (09:14)
[2017-04-23] MEDS ORDERED: ALBUTEROL NEBULIZED 2.5 MG/3 ML INHALATION PRN (09:14)
[2017-04-23] MEDS ORDERED: LORazepam 1 MG TAB PO PRN (09:14)
[2017-04-23] MEDS ORDERED: VERAPAMIL 2.5 MG/ML 2 ML AMP ONE (09:19)
[2017-04-23] MEDS ORDERED: VERAPAMIL SR 180 MG TABLET.ER PO SCH (09:30)
--- NOTE | 2017-04-23 09:35 | P.PCN ---
Preoperative Diagnosis: Procedure Comprehensive diagnostic EP study Coronary sinus pacing and recording Programmed stimulation following Isuprel Indication for the procedure Incessant tachycardia, symptomatic refractory to atenolol Results High right atrial tachycardia terminated with atrial pacing and noninducible thereafter. Focus was close to sinus node Plan Verapamil SR 180 mg by mouth daily instead of atenolol No indication for isosorbide, coronary arteries are normal Stop atenolol Continue other medications Follow-up with Dr. Langley and Dr. Chang If she has sustained breakthrough episode on verapamil I would consider atrial tachycardia ablation/sinus node modification but with a risk of sinus node injury Hence Verapamil SR to begin with at this time Postoperative Diagnosis: Procedure(s) Performed: Implants: Indications for Procedure: Operative Findings: Description of Procedure:
[2017-04-23] MEDS ORDERED: SODIUM CHLORIDE 0.9% 1,000 ML IV ONE (10:01)
--- NOTE | 2017-04-23 11:25 | CE ---
Letitia Andrade is a patient of Dr. Chang and Dr. Langley who has incessant tachycardia, supraventricular. She has failed Atenolol. She is brought in for a diagnostic EP study and possibly SV frequency ablation\delineating a management strategy for the arrhythmia. Patient is brought to the EP Lab in a fasting state. Written informed consent is obtained prior to the procedure. The right groin is prepped and draped as per protocol and 3 venous sheaths were placed in the right femoral vein. Initially 3 catheters were placed in the right heart initially and the 3 catheters were placed in the high right atrium, HIS bundle area and right ventricle. Later, the right ventricular catheter was moved to the coronary sinus for coronary sinus pacing recording. Isuprel was used in the procedure for induction of arrhythmia. The patient was tachycardic at the start of the study, sinus cycle length 470 ms , VT interval 161 ms, QRS 95 ms, QT 313 ms. In sinus rhythm, EH interval is 65 ms, HV interval is 41 ms. During sinus node recovery times, return cycle was 658 ms and it resulted in somewhat of an abrupt termination of the tachycardia but later the heart rate once again increased to about 125 beats per minute gradually. The tachycardia could never be induced with the fairly detailed program stimulation at multiple sites. AV node Wenckebach block 220 ms, no delta waves, no antegrade slow pathway conduction. Atrial extrastimulation up to triple extrastimuli from the high right atrium revealed up to double echo beats but no AV padmini re-entry. The original rhythm had a high to low sequence, very similar to sinus tachycardia. Ventricular extrastimulation is performed via Wenckebach block 350 ms. A retrograde echo beats were noted up to double echo beats but no AV padmini re- entry induced. Burst stimulation is performed from the high right atrium from the ventricle and later from the coronary sinus extrastimuli up to triple extrastimuli were performed from the atria and the coronary sinus. Isuprel was used and then the study was continued with the heart rate increased , current sinus massage was performed, burst stimulation is performed, burst pacing is performed but the tachycardia would not stop consistent with sinus tachycardia after Isuprel was started. After a detailed EP study and noninducibility of any arrhythmia, all catheters were removed and patient was transferred back to telemetry. RESULT: 1. Diagnostic EP study revealing arrhythmia that resembles sinus tachycardia that may be either a sinus node re-entry or high-right atrial tachycardia very close to the high right atrium. There was somewhat of an abrupt termination with atrial pacing from the high right atrium but thereafter her heart rate once again crept up to about 125 beats a minute. No other arrhythmias could be induced. 2. Retrograde echo beats up to double echo beats noted but AV padmini re-entry could not be induced. SUGGEST: At this time I would suggest stopping Imdur since she has normal coronary arteries, stopping Atenolol since she has failed this and starting Verapamil 180 mg p.o. daily. If she has sustained arrhythmia on Verapamil, then mapping of this tachycardia may be considered and if safe radiofrequency ablation may be considered, the risk of sinus node injury will have to be accepted in that situation, hence I would first start Verapamil. MTDD
[2017-04-23 12:05] LABS: Glucose,Whole Blood 220 mg/dL (75-99)
[2017-04-23] MEDS ORDERED: metFORMIN 500 MG TAB PO SCH ×2 (12:30→17:30)
[2017-04-23 15:49] VITALS: RESP 18
[2017-04-23] MEDS ORDERED: GABAPENTIN 400 MG CAP PO SCH (16:00)
[2017-04-23 16:59] LABS: Glucose,Whole Blood 192 mg/dL (75-99)
[2017-04-23 19:26] VITALS: BP 131/75; TEMP 98.3
[2017-04-23] MEDS ORDERED: BUDESONIDE 0.5 MG/2 ML NEBU INHALATION SCH (20:00)
[2017-04-23 20:23] LABS: Glucose,Whole Blood 214 mg/dL (75-99)
[2017-04-23] MEDS ORDERED: MONTELUKAST 10 MG TAB PO SCH (21:00)
[2017-04-23] MEDS ORDERED: ATORVASTATIN 20 MG TAB PO SCH (21:00)
[2017-04-23] MEDS ORDERED: CLOPIDOGREL 75 MG TAB PO SCH (21:00)
[2017-04-23] MEDS ORDERED: LOSARTAN 25 MG TAB PO SCH (21:00)
[2017-04-23] MEDS ORDERED: BUDESONIDE 1 MG/2 ML NEBU INHALATION SCH (21:00)
[2017-04-23 21:07] VITALS: PULSE 98
[2017-04-24] MEDS ORDERED: NON-FORMULARY DRUG (Dapagliflozin Propanediol [Farxiga] 10 MG) PO SCH (09:00)
[2017-04-24] MEDS ORDERED: ISOSORBIDE MONONITRATE ER 30 MG TAB.ER.24H PO SCH (09:00)
[2017-04-24] MEDS ORDERED: DULoxetine HCL 60 MG CAPSULE.DR PO SCH (09:00)
[2017-04-24] MEDS ORDERED: PIOGLITAZONE 15 MG TAB PO SCH (09:00)
[2017-04-24] MEDS ORDERED: ASPIRIN 81 MG CHEW PO SCH (09:00)
[2017-04-24] MEDS ORDERED: MAGNESIUM OXIDE 400 MG TAB PO SCH (09:00)
== END 2017-04-23 22:00 | disposition home or self-care (01) ==
LOC: CATHEP 06:03 → 3OBS 09:17 → CATHEP 22:00
PROVIDERS: ATTEND Internal Medicine Clinical Cardiac Electrophysiology
DX: I47.1 Supraventricular tachycardia (principal); R00.2 Palpitations; I10 Essential (primary) hypertension; E78.00 Pure hypercholesterolemia, unspecified; G47.33 Obstructive sleep apnea (adult) (pediatric); E11.9 Type 2 diabetes mellitus without complications; F41.9 Anxiety disorder, unspecified; F32.9 Major depressive disorder, single episode, unspecified; G62.9 Polyneuropathy, unspecified; M51.36 Other intervertebral disc degeneration, lumbar region; Z86.73 Personal history of transient ischemic attack (TIA), and cerebral infarction without residual deficits; Z82.49 Family history of ischemic heart disease and other diseases of the circulatory system; Z99.89 Dependence on other enabling machines and devices; Z79.899 Other long term (current) drug therapy; Z79.4 Long term (current) use of insulin; Z79.02 Long term (current) use of antithrombotics/antiplatelets; Z79.84 Long term (current) use of oral hypoglycemic drugs; Z79.82 Long term (current) use of aspirin; Z88.1 Allergy status to other antibiotic agents; Z88.5 Allergy status to narcotic agent; Z88.0 Allergy status to penicillin; Z91.041 Radiographic dye allergy status; Z87.891 Personal history of nicotine dependence
CPT/HCPCS: 94640; 93623; 93620; C1894; C1769 ×2; C1730 ×2; J2001; J2250; J3010; J2704

== ENCOUNTER 2017-05-18 15:08 | Observation (INO) | payer OTHER ==
[2017-05-18] MEDS ORDERED: SODIUM CHLORIDE 0.9% 1,000 ML IV STA (15:44)
[2017-05-18] MEDS ORDERED: FAMOTIDINE 20 MG/2 ML VIAL IV STA (15:44)
[2017-05-18] MEDS ORDERED: diphenhydrAMINE 50 MG/ML 1 ML VIAL IVP STA (15:44)
[2017-05-18] MEDS ORDERED: ASPIRIN 81 MG PO STA (15:44)
--- NOTE | 2017-05-18 15:50 | ED ---
General Adult HPI - General Chief complaint: Allergic Reaction Stated complaint: med reaction Time Seen by Provider: 05/18/17 15:36 Source: patient Mode of arrival: wheelchair Limitations: no limitations - History of Present Illness Initial comments: This 47-year-old white female presents with a complaint of a possible ALLERGIC reaction. She states that she has been seeing cardiology recently and was placed on verapamil for an unknown condition. 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 She was started on the verapamil one month ago and that is when she started developing symptoms. She apparently developed some facial redness. Today, she does complain of the facial redness but is also having facial itching as well as chest pain, shortness of breath, and a throat tightness. She does have a history of multiple ALLERGIES. She states that the chest pain is more of a pressure or tightness in her midsternal region without any radiation. There is a pleuritic component. She denies any known coronary artery disease and they have a heart catheterization approximately 2 years ago which did not show any coronary artery disease. She did have a stress test around that time as well which she was unable to complete. She denies any leg pain or swelling or history of DVT or PE. No other complaints or modifying factors. She is currently on a Holter monitor. - Related Data Home Medications Medication Instructions Recorded Confirmed DULoxetine HCL [Cymbalta] 60 mg PO DAILY 04/28/16 05/18/17 Insulin Regular [humuLIN R] 11 units SQ AC-TID 04/28/16 05/18/17 Losartan [Cozaar] 25 mg PO HS 04/28/16 05/18/17 metFORMIN HCL ER [Glucophage Xr] 500 mg PO W/LUNCH 04/28/16 05/18/17 Gabapentin [Neurontin] 400 mg PO TID 09/11/16 05/18/17 metFORMIN HCL ER [Glucophage Xr] 1,000 mg PO W/SUPPER 09/11/16 05/18/17 Insulin Regular [humuLIN R] See Protocol SQ AC-TID 12/22/16 05/18/17 Beclomethasone Dipropionate [Qvar 1 puff INHALATION RT-BID 02/24/17 05/18/17 80 mcg] Magnesium Oxide [Mag-Ox] 400 mg PO DAILY 02/24/17 05/18/17 Clopidogrel [Plavix] 75 mg PO HS 03/16/17 05/18/17 Dapagliflozin Propanediol [Farxiga] 10 mg PO DAILY 03/18/17 05/18/17 Albuterol Inhaler [Ventolin Hfa 2 puff INHALATION RT-Q6H PRN 04/16/17 05/18/17 Inhaler] Montelukast [Singulair] 10 mg PO HS 04/16/17 05/18/17 Pioglitazone [Actos] 15 mg PO DAILY 04/16/17 05/18/17 Atorvastatin Calcium [Lipitor] 20 mg PO HS 05/18/17 05/18/17 Previous Rx's Medication Instructions Recorded Aspirin EC [Ecotrin Low Dose] 81 mg PO DAILY #30 tablet. 11/07/16 Verapamil HCl [Verapamil ER] 180 mg PO DAILY #1 tab 04/23/17 Allergies Allergy/AdvReac Type Severity Reaction Status Date / Time adhesive Allergy red skin Verified 05/18/17 15:54 adhesive tape Allergy red skin Verified 05/18/17 15:54 Iodinated Contrast- Oral and Allergy Itching Verified 05/18/17 15:54 IV Dye [Iodinated Contrast Media - IV Dye] iodine Allergy Rash/Hives, Verified 05/18/17 15:54 ITCHING prednisone Allergy Rapid Verified 05/18/17 15:54 Heart Rate tramadol Allergy Unknown Verified 05/18/17 15:54 celecoxib [From Celebrex] AdvReac CAUSES GI Verified 05/18/17 15:54 BLEEDING cephalexin monohydrate AdvReac Vomiting Verified 05/18/17 15:54 [From Keflex] hydrocodone AdvReac Nausea & Verified 05/18/17 15:54 Vomiting Penicillins AdvReac Nausea & Verified 05/18/17 15:54 Vomiting dial soap Allergy Unknown Uncoded 05/18/17 15:22 Review of Systems ROS Statement: Those systems with pertinent positive or pertinent negative responses have been documented in the HPI. ROS Other: All systems not noted in ROS Statement are negative. Past Medical History Past Medical History: Asthma, CVA/TIA, Diabetes Mellitus, Fibromyalgia, GERD/ Reflux, Hyperlipidemia, Osteoarthritis (OA), Skin Disorder, Sleep Apnea/CPAP/ BIPAP, Thyroid Disorder Additional Past Medical History / Comment(s): see Dr العراقي H&P, hx migraines, TIA 2016-weakness in hands and legs, two bulging disks, degenerative disk disease, neuopathy-upper and lower extrememties, uses walker, psoriasis, nodules on thyroid, sleep apnea with cpap History of Any Multi-Drug Resistant Organisms: None Reported Past Surgical History: Adenoidectomy, Cholecystectomy, Heart Catheterization, Orthopedic Surgery, Tonsillectomy Additional Past Surgical History / Comment(s): D&C, carpal tunnel surgery left arm, LT ARM SX FOR "PINCHED NERVE", LT THUMB TRIGGER FINGER sx. rae neuroma removed left foot Past Anesthesia/Blood Transfusion Reactions: No Reported Reaction Additional Past Anesthesia/Blood Transfusion Reaction / Comment(s): difficulty waking from anesthesia Past Psychological History: Anxiety, Depression, Panic Disorder Smoking Status: Former smoker Past Alcohol Use History: Rare Past Drug Use History: None Reported - Past Family History Father Family Medical History: Cancer, Syncope Additional Family Medical History / Comment(s): 1992 Mother Family Medical History: Diabetes Mellitus, Hypertension, Osteoarthritis (OA) Additional Family Medical History / Comment(s): MURMUR Sister(s) Family Medical History: Cancer Additional Family Medical History / Comment(s): Depression General Exam - General Exam Comments Initial Comments: GENERAL: The patient is well nourished and well hydrated. VITAL SIGNS: Heart rate, blood pressure, respiratory rate reviewed as recorded in nurse's notes. EYES: Pupils are round and reactive. Extraocular movements are intact. No conjunctival / lid redness or swelling. ENT: No external evidence of injury, swelling, or ecchymosis. Airway is patent. Throat is clear. There is no evidence of any posterior pharyngeal edema. NECK: Nontender. No swelling or evidence of injury. No subcutaneous emphysema. Trachea is midline. No thyroid mass. HEART: Regular rate and rhythm. Good peripheral pulses. LUNGS/CHEST: Breath sounds clear and equal bilaterally. No rales, rhonchi, or wheezes. No ecchymosis, subcutaneous emphysema, or tenderness. ABDOMEN: Abdomen soft without tenderness. No palpable masses or organomegaly. No peritoneal signs. No abdominal wall swelling or ecchymosis. EXTREMITIES: No extremity tenderness. Normal muscle tone and function. No thoracolumbar tenderness. NEUROLOGIC: Sensation is grossly intact. Cranial nerve exam reveals face is symmetrical, tongue is midline, speech is clear. SKIN: There is some mild facial erythema noted. No induration or masses noted. PSYCHIATRIC: Alert and oriented. Appropriate behavior and judgment. Limitations: no limitations Course Vital Signs 05/18/17 15:16 Temperature 984 F H Pulse Rate 102 H Respiratory 20 Rate Blood Pressure 142/76 O2 Sat by Pulse 96 Oximetry Medical Decision Making - Medical Decision Making The patient was seen and examined. All diagnostics were reviewed. The EKG shows a normal sinus rhythm at a rate of 97. There is no acute ST-T wave changes identified. The IL interval is 154, QRS duration is 78, and the QTc interval is 454. She is given some aspirin as well as some Nitropaste and Benadryl and Pepcid. Solu-Medrol was avoided due to her ALLERGY to prednisone. The laboratory is reviewed and overall is unremarkable. The d-dimer is negative as well. The chest x-ray does not show any acute process. Due to the chest pain and possible adverse versus ALLERGIC reaction it is felt as though patient would benefit from admission to the hospital. Case will be discussed with internal medicine and patient will be admitted for further treatment. - Lab Data Result diagrams: 05/18/17 16:52 05/18/17 16:52 Lab Results 05/18/17 05/18/17 05/18/17 Range/Units 16:52 16:52 16:52 WBC 9.5 (3.8-10.6) k/uL RBC 4.64 (3.80-5.40) m/uL Hgb 12.3 (11.4-16.0) gm/dL Hct 37.5 (34.0-46.0) % MCV 80.8 (80.0-100.0) fL MCH 26.6 (25.0-35.0) pg MCHC 32.9 (31.0-37.0) g/dL RDW 16.4 H (11.5-15.5) % Plt Count 214 (150-450) k/uL Neutrophils % 75 % Lymphocytes % 17 % Monocytes % 4 % Eosinophils % 2 % Basophils % 0 % Neutrophils # 7.1 (1.3-7.7) k/uL Lymphocytes # 1.6 (1.0-4.8) k/uL Monocytes # 0.4 (0-1.0) k/uL Eosinophils # 0.2 (0-0.7) k/uL Basophils # 0.0 (0-0.2) k/uL Anisocytosis Slight PT (9.0-12.0) sec INR (<1.2) APTT (22.0-30.0) sec D-Dimer (<0.60) mg/L FEU Sodium 137 (137-145) mmol/L Potassium 4.0 (3.5-5.1) mmol/L Chloride 101 (98-107) mmol/L Carbon Dioxide 25 (22-30) mmol/L Anion Gap 11 mmol/L BUN 20 H (7-17) mg/dL Creatinine 0.83 (0.52-1.04) mg/dL Est GFR (MDRD) Af Amer >60 (>60 ml/min/1.73 sqM) Est GFR (MDRD) Non-Af >60 (>60 ml/min/1.73 sqM) Glucose 176 H (74-99) mg/dL Calcium 9.0 (8.4-10.2) mg/dL Magnesium 1.8 (1.6-2.3) mg/dL Total Bilirubin 0.5 (0.2-1.3) mg/dL AST 20 (14-36) U/L ALT 29 (9-52) U/L Alkaline Phosphatase 87 (38-126) U/L Total Creatine Kinase 57 (30-135) U/L CK-MB (CK-2) 0.6 (0.0-2.4) ng/mL CK-MB (CK-2) Rel Index 1.1 Troponin I <0.012 (0.000-0.034) ng/mL NT-Pro-B Natriuret Pep pg/mL Total Protein 6.8 (6.3-8.2) g/dL Albumin 3.9 (3.5-5.0) g/dL 05/18/17 05/18/17 Range/Units 16:52 16:52 WBC (3.8-10.6) k/uL RBC (3.80-5.40) m/uL Hgb (11.4-16.0) gm/dL Hct (34.0-46.0) % MCV (80.0-100.0) fL MCH (25.0-35.0) pg MCHC (31.0-37.0) g/dL RDW (11.5-15.5) % Plt Count (150-450) k/uL Neutrophils % % Lymphocytes % % Monocytes % % Eosinophils % % Basophils % % Neutrophils # (1.3-7.7) k/uL Lymphocytes # (1.0-4.8) k/uL Monocytes # (0-1.0) k/uL Eosinophils # (0-0.7) k/uL Basophils # (0-0.2) k/uL Anisocytosis PT 10.8 (9.0-12.0) sec INR 1.1 (<1.2) APTT 23.8 (22.0-30.0) sec D-Dimer 0.21 (<0.60) mg/L FEU Sodium (137-145) mmol/L Potassium (3.5-5.1) mmol/L Chloride (98-107) mmol/L Carbon Dioxide (22-30) mmol/L Anion Gap mmol/L BUN (7-17) mg/dL Creatinine (0.52-1.04) mg/dL Est GFR (MDRD) Af Amer (>60 ml/min/1.73 sqM) Est GFR (MDRD) Non-Af (>60 ml/min/1.73 sqM) Glucose (74-99) mg/dL Calcium (8.4-10.2) mg/dL Magnesium (1.6-2.3) mg/dL Total Bilirubin (0.2-1.3) mg/dL AST (14-36) U/L ALT (9-52) U/L Alkaline Phosphatase (38-126) U/L Total Creatine Kinase (30-135) U/L CK-MB (CK-2) (0.0-2.4) ng/mL CK-MB (CK-2) Rel Index Troponin I (0.000-0.034) ng/mL NT-Pro-B Natriuret Pep 85 pg/mL Total Protein (6.3-8.2) g/dL Albumin (3.5-5.0) g/dL Disposition Clinical Impression: Chest pain, Dyspnea, Adverse reaction to drug Disposition: ADMITTED IP TO THIS [facility] Condition: Fair Time of Disposition: 18:27 Decision Date: 05/18/17 Decision Time: 18:27
[2017-05-18] MEDS: NITROGLYCERIN OINT 1 INCH/GM PACKET TOPICAL STA ×2 (17:10→17:11)
[2017-05-18 17:16] LABS: Anisocytosis Slight; Basophils % (A) 0 %; CH 26.7; CHCM 33.2; Eosinophils # (A) 0.2 k/uL (0-0.7); Eosinophils % (A) 2 %; HCT 37.5 % (34.0-46.0); HDW 3.08; HGB 12.3 gm/dL (11.4-16.0); Luc # (Auto) 0.15; Luc % (Auto) 2; Lymphocytes # (A) 1.6 k/uL (1.0-4.8); Lymphocytes % (A) 17 %; MCH 26.6 pg (25.0-35.0); MCHC 32.9 g/dL (31.0-37.0); MCV 80.8 fL (80.0-100.0); Mean Platelet Volume 7.1; Monocytes # (A) 0.4 k/uL (0-1.0); Monocytes % (A) 4 %; Neutrophils # (A) 7.1 k/uL (1.3-7.7); Neutrophils % (A) 75 %; RBC 4.64 m/uL (3.80-5.40); RDW 16.4 % (11.5-15.5); WBC 9.5 k/uL (3.8-10.6)
[2017-05-18 17:20] LABS: ALT 29 U/L (9-52); AST 20 U/L (14-36); Alkaline Phosphatase 87 U/L (38-126); Anion Gap 11 mmol/L; Blood Urea Nitrogen 20 mg/dL (7-17); Carbon Dioxide 25 mmol/L (22-30); Chloride 101 mmol/L (98-107); Glucose 176 mg/dL (74-99); Magnesium 1.8 mg/dL (1.6-2.3); Non-African American GFR(MDRD) >60 (>60 ml/min/1.73 sqM); Sodium 137 mmol/L (137-145); Total Bilirubin 0.5 mg/dL (0.2-1.3); Total Protein 6.8 g/dL (6.3-8.2)
[2017-05-18 17:24] LABS: Creatine Kinase 57 U/L (30-135)
[2017-05-18 17:29] LABS: INR 1.1 (<1.2); Partial Thromboplastin Time 23.8 sec (22.0-30.0); Prothrombin Time 10.8 sec (9.0-12.0)
--- NOTE | 2017-05-18 17:32 | XR ---
EXAMINATION TYPE: XR chest 2V DATE OF EXAM: 05/18/2017 COMPARISON: NONE HISTORY: Chest pain TECHNIQUE: Frontal and lateral views of the chest are obtained. FINDINGS: There is no heart failure nor confluent pneumonic infiltrate. There are no hilar masses. T here are chest leads. Costophrenic angles are clear. Bony thorax is intact. IMPRESSION: No active cardiopulmonary disease. There is improved inspiration compared to old exam.
[2017-05-18 17:36] LABS: Creatine Kinase MB 0.6 ng/mL (0.0-2.4); Troponin I <0.012 ng/mL (0.000-0.034)
[2017-05-18] MEDS ORDERED: NITROGLYCERIN SL TABS 0.4 MG TAB SUBLINGUAL PRN (18:28)
[2017-05-18] MEDS ORDERED: HEPARIN SODIUM,PORCINE 5,000 UNIT/ML 1 ML VIAL IV PRN (18:28)
[2017-05-18] MEDS ORDERED: ACETAMINOPHEN TAB 325 MG TAB PO PRN (18:28)
[2017-05-18] MEDS ORDERED: HEPARIN SODIUM,PORCINE 5,000 UNIT/ML 1 ML VIAL IV ONE (18:28)
[2017-05-18] MEDS ORDERED: HEPARIN SODIUM,PORCINE/D5W PMX 25,000 UNIT in DEXTROSE/WATER 1 500ML.BAG IV SCH (18:30)
[2017-05-18] MEDS ORDERED: ALBUTEROL NEBULIZED 2.5 MG/3 ML INHALATION PRN (18:32)
[2017-05-18] MEDS ORDERED: diphenhydrAMINE 50 MG/ML 1 ML VIAL IVP PRN (18:34)
[2017-05-18 20:39] LABS: Glucose,Whole Blood 173 mg/dL (75-99)
[2017-05-18] MEDS: BECLOMETHASONE DIP 80 MCG/PUFF INHALER INHALATION SCH (20:41)
[2017-05-18] MEDS: INSULIN LISPRO (humaLOG) 300 UNIT/3 ML VIAL SQ SCH (20:59)
[2017-05-18] MEDS: GABAPENTIN 400 MG CAP PO SCH (20:59)
[2017-05-18] MEDS ORDERED: CLOPIDOGREL 75 MG TAB PO SCH (21:00)
[2017-05-18] MEDS ORDERED: MONTELUKAST 10 MG TAB PO SCH (21:00)
[2017-05-18] MEDS ORDERED: LOSARTAN 25 MG TAB PO SCH (21:00)
[2017-05-18] MEDS ORDERED: ATORVASTATIN 20 MG TAB PO SCH (21:00)
[2017-05-18] MEDS: FAMOTIDINE 20 MG/2 ML VIAL IV SCH (21:03)
[2017-05-18] MEDS: NITROGLYCERIN OINT 1 INCH/GM PACKET TOPICAL SCH (21:03)
[2017-05-19 01:07] LABS: Creatine Kinase 48 U/L (30-135)
[2017-05-19 01:21] LABS: Creatine Kinase MB 0.4 ng/mL (0.0-2.4); Troponin I <0.012 ng/mL (0.000-0.034)
[2017-05-19 04:09] VITALS: TEMP 97.7
[2017-05-19 06:50] LABS: Mean Platelet Volume 7.4
[2017-05-19 06:59] LABS: Glucose,Whole Blood 136 mg/dL (75-99)
[2017-05-19 07:11] LABS: Cholesterol 122 mg/dL (<200); HDL Cholesterol 26 mg/dL (40-60)
[2017-05-19 07:17] LABS: Creatine Kinase 41 U/L (30-135)
[2017-05-19 07:30] LABS: Creatine Kinase MB 0.4 ng/mL (0.0-2.4); Troponin I <0.012 ng/mL (0.000-0.034)
[2017-05-19] MEDS ORDERED: INSULIN REGULAR 100 UNIT/ML VIAL SQ SCH (07:30)
[2017-05-19 07:43] VITALS: BP 90/57; PULSE 84; RESP 18
[2017-05-19] MEDS: BECLOMETHASONE DIP 80 MCG/PUFF INHALER INHALATION SCH (08:07)
[2017-05-19] MEDS: INSULIN LISPRO (humaLOG) 300 UNIT/3 ML VIAL SQ SCH (08:20)
[2017-05-19] MEDS: FAMOTIDINE 20 MG/2 ML VIAL IV SCH (08:43)
[2017-05-19] MEDS: GABAPENTIN 400 MG CAP PO SCH (08:44)
[2017-05-19 08:54] LABS: Hemoglobin A1C 8.8 % (4.2-6.1)
[2017-05-19] MEDS ORDERED: PIOGLITAZONE 15 MG TAB PO SCH (09:00)
[2017-05-19] MEDS ORDERED: ASPIRIN 325 MG TAB PO SCH (09:00)
[2017-05-19] MEDS ORDERED: VERAPAMIL SR 180 MG TABLET.ER PO SCH (09:00)
[2017-05-19] MEDS ORDERED: DULoxetine HCL 60 MG CAPSULE.DR PO SCH (09:00)
[2017-05-19] MEDS ORDERED: NON-FORMULARY DRUG (Dapagliflozin Propanediol [Farxiga] 10 MG) PO SCH (09:00)
--- NOTE | 2017-05-19 10:18 | CONS ---
CONSULTATION This is a 47-year-old, obese lady with history of type 2 diabetes, hypertension, who has an unremarkable cardiac cath with no obstructive disease based on a cardiac cath from 2 years ago. She has what seems to be an atrial tachycardia type picture and the site of this arrhythmia seems to be very close to the sinus node. She was initially placed on atenolol without much improvement in her arrhythmia and then Dr. العراقي performed an EP study on her and felt that aggressive ablation is not a good idea and we will first try verapamil because of the proximity to the sinus node. He started her on verapamil on April 26. She had some tingling of her face, some flush sensation and then started having some in symptoms as if her throat was closing down and felt that she had more short of breath and came into the hospital with these symptoms and indicated to the ER doctor that she is having a reaction to verapamil. This is not verifiable and she has not had this symptom before. However her verapamil last dose was yesterday and I have asked her to stop the verapamil right now and also not to take any beta blockers, but we will have her see Dr. Chang in the office in a week and we will decide other drugs like flecainide or Rythmol if that helps, but we will wait until the verapamil is out of the system. She took this medication yesterday. She feels well this morning. Denies any chest pains. She also had some tingling feeling in the chest when she came into the hospital but that symptom has resolved. She had a previous stress test and also that was unremarkable and this was a stress echo that was performed with dobutamine about a year or so ago. Her cardiac cath was from 2014, which was also unremarkable. At the time of my evaluation, she is resting comfortably without any significant symptoms. PAST MEDICAL HISTORY: 1. Type 2 diabetes mellitus. 2. Obesity. 3. History of atrial tachycardia, status post EP study, advised verapamil by Dr. العراقي. 4. Fibromyalgia. 5. Sleep apnea syndrome, uses a BiPAP. 6. Hypothyroidism. 7. She is status post cholecystectomy, appendectomy and some orthopedic surgery. MEDICATIONS: Medications at home include metformin, insulin, Lantus, Cymbalta, Cozaar. She stop taking verapamil as of yesterday. Magnesium supplements, Plavix 75 mg daily, aspirin 81 mg daily, Actos 15 mg daily, atorvastatin 20 mg daily. There is also a question of a TIA for this patient as well. PHYSICAL EXAMINATION: On examination, blood pressure is 100/60, pulse rate is 70 per minute, regular. HEENT: Unremarkable. Fundus was not examined by me. Neck is supple, short and thick, cannot appreciate JVD. Heart exam reveals S1, S2 with distant heart sounds. Lungs reveal diminished air entry. Abdomen is distended, nontender. Lower extremities reveal diminished pulses. Central nervous system is normal. EKG revealed a sinus mechanism, poor R-wave progression. Laboratory data revealed unremarkable troponins. This patient presentation to the hospital appears to be more or less concern with some reaction to verapamil. However she had sharp pains in the chest. Chest pain is atypical and all her blood work is normal. She is asymptomatic this morning. I am recommending that she can be discharged without a verapamil and follow up with Dr. Chang later on this week or early next week to figure out other choices for her medication for her arrhythmia. I discussed my thoughts in detail with the patient. We will increase activity and plan for discharge. MMODL / IJN: [id number] /
[2017-05-19] MEDS ORDERED: MAGNESIUM OXIDE 400 MG TAB PO SCH (12:00)
[2017-05-19] MEDS ORDERED: metFORMIN 500 MG TAB PO SCH ×2 (12:30→17:30)
--- NOTE | 2017-06-10 13:56 | P.HPIM ---
History of Present Illness H&P Date: 05/19/17 Chief Complaint: Reaction to verapamil, chest pain, reactive or arrhythmia, hypertension, di HISTORY AND PHYSICAL AND DISCHARGE SUMMARY: 47-year-old female one of Dr. Monsivais patient was seen last back in for chest pain and unstable angina was supposed to have electrophysiology testing and seen Dr. العراقي at the time was seen cardiology and decided not to do any cardiac testing watch was not hospital she was discharged the following day and seen Dr. العراقي had electrophysiology testing result apparently came back with significant SVT. Patient was started on verapamil in the last few weeks apparently has been having more trouble with it. She presented to the emergency department at [facility] on 05/18/2017 for possible drug reaction to verapamil with redness in the face along with numbness along with that she developed to have significant chest pain which shortness of breath and throat tightness she is known to have multiple ALLERGIC reaction with her current symptoms with negative CK with troponin with last cardiac testing to the heart cath and stress test over 2 years ago patient was admitted to the hospital. Patient was seen by Dr. STUART Beck with recommendations to continue Verapamil but will be discontinued and follow up with Dr. Chang in the next week. Patient will be discharged home today in stable condition. Review of Systems Constitutional: Reports fatigue, Reports lethargy, Reports malaise, Reports weakness, Denies as per HPI, Denies anorexia, Denies chills, Denies chronic headaches, Denies chronic pain, Denies daytime sleepiness, Denies fever, Denies night sweats, Denies poor appetite, Denies sweats, Denies weight gain, Denies weight loss Eyes: bilateral as per HPI Ears: bilateral: decreased hearing Ears, nose, mouth and throat: Reports ant. neck pain, Reports nasal congestion, Reports sinus pressure, Denies as per HPI, Denies bleeding gums, Denies dental pain, Denies dysphagia, Denies epistaxis, Denies headache, Denies hoarseness, Denies mouth pain, Denies nasal discharge, Denies neck fullness/pressure, Denies neck lump, Denies nose pain, Denies odynophagia, Denies post-nasal drip, Denies sinus pain, Denies swelling in mouth, Denies swelling in throat, Denies sore throat, Denies vertigo, Denies voice changes Breasts: bilateral: as per HPI Cardiovascular: Reports chest pain, Reports orthopnea, Reports palpitations, Denies as per HPI, Denies claudication, Denies decreased exercise tolerance, Denies dyspnea on exertion, Denies edema, Denies high blood pressure, Denies irregular heart beat, Denies leg edema, Denies lightheadedness, Denies paroxysmal nocturnal dyspnea, Denies phlebitis, Denies rapid heart beat, Denies shortness of breath, Denies syncope Respiratory: Reports congestion, Denies as per HPI, Denies cough, Denies cough with sputum, Denies dyspnea, Denies excessive sputum, Denies hemoptysis, Denies home oxygen, Denies pain, Denies pain on inspiration, Denies pleurisy, Denies respiratory infections, Denies sleep apnea, Denies snoring, Denies wheezing Gastrointestinal: Reports bloating, Reports dyspepsia, Reports early satiety, Reports indigestion, Reports nausea, Denies as per HPI, Denies abdominal pain, Denies belching, Denies BRBPR, Denies change in bowel habits, Denies coffee ground emesis, Denies constipation, Denies diarrhea, Denies excessive gas, Denies heartburn, Denies hematemesis, Denies hematochezia, Denies jaundice, Denies lactose intolerance, Denies loss of appetite, Denies melena, Denies vomiting Genitourinary: Denies as per HPI, Denies abnormal vaginal bleeding, Denies decreased libido, Denies difficulty conceiving, Denies difficulty voiding, Denies dysmenorrhea, Denies dyspareunia, Denies dysuria, Denies flank pain, Denies genital sores, Denies hematuria, Denies hot flashes, Denies incomplete emptying, Denies kidney stones, Denies menorrhagia, Denies mixed incontinence, Denies nocturia, Denies pelvic pain, Denies post void dribbling, Denies , Denies prolapse symptoms, Denies stress incontinence, Denies urge incontinence , Denies urgency, Denies urinary frequency, Denies vaginal discharge, Denies vaginal dryness, Denies vaginal itching, Denies vaginal odor Musculoskeletal: Reports low back pain, Reports myalgias, Reports neck pain, Denies as per HPI, Denies arm numbness/tingling, Denies atrophy, Denies fractures, Denies frequent falls, Denies gait dysfunction, Denies hot joints, Denies leg numbness/tingling, Denies limitation of motion, Denies loss of height , Denies morning stiffness, Denies muscle cramps, Denies muscle weakness, Denies neck stiffness, Denies prior amputations, Denies redness of joints, Denies shooting arm pain, Denies shooting leg pain Musculoskeletal: bilateral: ankle pain Integumentary: Denies as per HPI, Denies acne, Denies boils, Denies brittle nails, Denies change in hair/nails, Denies color changes, Denies darkening of skin, Denies depigmentation, Denies dryness, Denies foot/leg ulcers, Denies growths, Denies hirsutism, Denies lesions, Denies onychomycosis, Denies pruritus , Denies rash, Denies sores, Denies striae, Denies unusual bruising, Denies wounds Neurological: Reports numbness, Reports tingling, Reports tremors, Reports weakness, Denies as per HPI, Denies aphasia, Denies ataxia, Denies balance difficulties, Denies burning pain, Denies change in mentation, Denies change in smell/taste, Denies change in speech, Denies confusion, Denies convulsions, Denies double vision, Denies gait dysfunction, Denies head injury, Denies headaches, Denies hearing difficulties, Denies lack of coordination, Denies loss of vision, Denies memory loss, Denies migraines, Denies motor disturbance, Denies paralysis, Denies paresthesias, Denies seizures, Denies sensory deficit, Denies spasticity, Denies syncope, Denies tic, Denies transient paralysis, Denies vertigo, Denies visual changes Psychiatric: Reports anhedonia, Reports anxiety, Reports depression, Denies as per HPI, Denies anxiety attacks, Denies change in appetite, Denies change in libido, Denies change in sleep habits, Denies confusion, Denies difficulty concentrating, Denies disorientation, Denies hallucinations, Denies hopelessness , Denies hypersomnia, Denies insomnia, Denies irritability, Denies memory loss, Denies mood swings, Denies paranoia, Denies sadness/tearfulness, Denies sleep disturbances, Denies suicidal ideation Endocrine: Reports cold intolerance, Reports fatigue, Reports flushing, Reports heat intolerance, Reports polyuria, Denies as per HPI, Denies deepening of the voice, Denies excessive sweating, Denies excessive thirst, Denies high blood sugars, Denies increase in ring/shoe/hat size, Denies low blood sugars, Denies nocturia, Denies palpitations, Denies polydipsia, Denies polyphagia, Denies proptosis, Denies recent glucocorticoid use, Denies thyroid mass, Denies weight change Hematologic/Lymphatic: Denies as per HPI, Denies easy bleeding, Denies easy bruising, Denies lymphadenopathy, Denies lymphedema, Denies thrombophilia Allergic/Immunologic: Reports allergic rhinitis, Denies as per HPI, Denies anaphylaxis, Denies angioedema, Denies gluten intolerance, Denies persistent infections, Denies seasonal allergies, Denies urticaria, Denies wheezing Past Medical History Past Medical History: Asthma, CVA/TIA, Diabetes Mellitus, Fibromyalgia, GERD/ Reflux, Hyperlipidemia, Osteoarthritis (OA), Skin Disorder, Sleep Apnea/CPAP/ BIPAP, Thyroid Disorder Additional Past Medical History / Comment(s): hx migraines, TIA 2015-weakness in hands and legs, two bulging disks, degenerative disk disease, neuopathy- upper and lower extrememties, uses walker, psoriasis, nodules on thyroid, History of Any Multi-Drug Resistant Organisms: None Reported Past Surgical History: Adenoidectomy, Cholecystectomy, Heart Catheterization, Orthopedic Surgery, Tonsillectomy Additional Past Surgical History / Comment(s): D&C, carpal tunnel surgery left arm, LT ARM SX FOR "PINCHED NERVE", LT THUMB TRIGGER FINGER sx. rae neuroma removed left foot Past Anesthesia/Blood Transfusion Reactions: No Reported Reaction Additional Past Anesthesia/Blood Transfusion Reaction / Comment(s): difficulty waking from anesthesia Past Psychological History: Anxiety, Depression, Panic Disorder Additional Psychological History / Comment(s): . Smoking Status: Former smoker Past Alcohol Use History: Rare Additional Past Alcohol Use History / Comment(s): started smoking at age 13 smoked 1/2 ppd, quit in the early Past Drug Use History: None Reported Additional Drug Use History / Comment(s): . - Past Family History Father Family Medical History: Cancer, Syncope Additional Family Medical History / Comment(s): 1992 Mother Family Medical History: Diabetes Mellitus, Hypertension, Osteoarthritis (OA) Additional Family Medical History / Comment(s): MURMUR Sister(s) Family Medical History: Cancer Additional Family Medical History / Comment(s): Depression Medications and Allergies Home Medications Medication Instructions Recorded Confirmed Type DULoxetine HCL [Cymbalta] 60 mg PO DAILY 04/28/16 06/08/17 History Insulin Regular [humuLIN R] 11 units SQ AC-TID 04/28/16 06/08/17 History Losartan [Cozaar] 25 mg PO HS 04/28/16 06/08/17 History metFORMIN HCL ER [Glucophage Xr] 500 mg PO W/LUNCH 04/28/16 06/08/17 History Gabapentin [Neurontin] 400 mg PO TID 09/11/16 06/08/17 History metFORMIN HCL ER [Glucophage Xr] 1,000 mg PO W/SUPPER 09/11/16 06/08/17 History Aspirin EC [Ecotrin Low Dose] 81 mg PO DAILY #30 tablet. 11/07/16 06/08/17 Rx Insulin Regular [humuLIN R] See Protocol SQ AC-TID 12/22/16 06/08/17 History Beclomethasone Dipropionate [Qvar 1 puff INHALATION BID 02/24/17 06/08/17 History 80 mcg] Magnesium Oxide [Mag-Ox] 400 mg PO DAILY 02/24/17 06/08/17 History Clopidogrel [Plavix] 75 mg PO HS 03/16/17 06/02/17 History Dapagliflozin Propanediol [Farxiga] 10 mg PO DAILY 03/18/17 06/08/17 History Albuterol Inhaler [Ventolin Hfa 2 puff INHALATION Q6HR PRN 04/16/17 06/08/17 History Inhaler] Montelukast [Singulair] 10 mg PO HS 04/16/17 06/08/17 History Pioglitazone [Actos] 15 mg PO DAILY 04/16/17 06/08/17 History Atorvastatin Calcium [Lipitor] 20 mg PO HS 05/18/17 06/08/17 History Acetaminophen Tab [Tylenol] 650 mg PO Q4HR PRN tab 05/19/17 06/08/17 Rx Ibuprofen [Motrin] 800 mg PO Q8HR PRN 06/08/17 06/08/17 History Allergies Allergy/AdvReac Type Severity Reaction Status Date / Time adhesive Allergy red skin Verified 06/02/17 15:38 adhesive tape Allergy red skin Verified 06/02/17 15:38 Iodinated Contrast- Oral and Allergy Itching Verified 06/02/17 15:38 IV Dye [Iodinated Contrast Media - IV Dye] iodine Allergy Rash/Hives, Verified 06/02/17 15:38 ITCHING prednisone Allergy Rapid Verified 06/02/17 15:38 Heart Rate tramadol Allergy Unknown Verified 06/02/17 15:38 verapamil Allergy Anaphylaxis Verified 06/02/17 15:38 celecoxib [From Celebrex] AdvReac CAUSES GI Verified 06/02/17 15:38 BLEEDING cephalexin monohydrate AdvReac Vomiting Verified 06/02/17 15:38 [From Keflex] diphenhydramine AdvReac Itching Verified 06/02/17 15:38 [From Benadryl] hydrocodone AdvReac Nausea & Verified 06/02/17 15:38 Vomiting Penicillins AdvReac Nausea & Verified 06/02/17 15:38 Vomiting dial soap Allergy Unknown Uncoded 06/02/17 15:38 Physical Exam Vitals: Vital Signs Temp Pulse Pulse Resp BP BP Pulse Ox 05/19/17 07:42 97.7 F 84 18 90/57 99 05/19/17 04:00 97.7 F 78 16 100/56 99 05/19/17 03:36 16 05/19/17 00:00 16 05/18/17 23:28 97.8 F 90 16 129/78 96 05/18/17 20:00 16 05/18/17 19:29 98.2 F 90 16 131/84 94 L 05/18/17 18:53 96 18 169/89 99 05/18/17 18:00 100 18 125/68 97 05/18/17 17:00 90 18 111/57 97 05/18/17 15:16 984 F H 102 H 20 142/76 96 Intake and Output 05/18/17 05/19/17 05/19/17 22:59 06:59 14:59 Intake Total 1534.582 Balance 1534.582 Intake: IV 1250 Heparin Sodium,Porcine/ 250 D5w Pmx 25,000 unit In Dextrose/Water 1 500ml. bag @ 8.57 UNITS/KG/HR 19 .98 mls/hr IV .Q24H [facility] Rx#:[id number] Sodium Chloride 0.9% 1, 1000 000 ml @ 100 mls/hr IV . Q10H [facility] Rx#:[id number] Intake, IV Titration 84.582 Amount Heparin Sodium,Porcine/ 84.582 D5w Pmx 25,000 unit In Dextrose/Water 1 500ml. bag @ 8.57 UNITS/KG/HR 19 .98 mls/hr IV .Q24H [facility] Rx#:[id number] Oral 200 Other: Voiding Method Toilet Toilet # Voids 3 Weight 116.573 kg - Constitutional General appearance: no average body habitus, cooperative, no disheveled, no mild distress, no morbidly obese, no acute distress, no obese, no severe distress, no thin - EENT Eyes: no abnormal pupil, no anicteric sclerae, no disc margins sharp, no edentulous, no EOMI, no PERRLA, no fundus normal, no photophobia, no dentition normal, no poor dentition, no ptosis, no scleral icterus, normal appearance ENT: no hard of hearing, no hearing grossly normal, no NA/AT, normal oropharynx , no other, no pharyngeal erythema, no thrush, no tonsillar exudates, no tonsillar swelling Ears: bilateral: normal - Neck Neck: no lymphadenopathy, normal ROM, no other, no rigidity, no stridor, no thyromegaly Carotids: bilateral: upstroke normal Thyroid: bilateral: normal size - Respiratory Respiratory: bilateral: CTA - Cardiovascular Rhythm: regular Heart sounds: normal: S1, S2 Abnormal Heart Sounds: systolic murmur - Gastrointestinal General gastrointestinal: no absent bowel sounds, no decreased bowel sounds, no distended, no hepatomegaly, no hyperactive bowel sounds, normal bowel sounds, no organomegaly, no rigid, scaphoid, no soft, no splenomegaly, no tenderness, no umbilical hernia, no ventral hernia - Integumentary Integumentary: no calor, no cellulitis, no cyanotic, no decreased turgor, no flushed, no jaundiced, normal, no normal turgor, pale, rash, no ulcer - Neurologic Neurologic: CNII-XII intact - Musculoskeletal Musculoskeletal: gait normal, generalized weakness, strength equal bilaterally, no right sided weakness, no left sided weakness - Psychiatric Psychiatric: A&O x's 3, appropriate affect Results CBC & Chem 7: 05/19/17 06:17 05/18/17 16:52 Labs: Abnormal Lab Results - Last 24 Hours (Table) 05/18/17 05/18/17 05/18/17 Range/Units 16:52 16:52 20:36 RDW 16.4 H (11.5-15.5) % APTT (22.0-30.0) sec BUN 20 H (7-17) mg/dL Glucose 176 H (74-99) mg/dL POC Glucose (mg/dL) 173 H (75-99) mg/dL Triglycerides (<150) mg/dL HDL Cholesterol (40-60) mg/dL 05/19/17 05/19/17 05/19/17 Range/Units 00:01 06:17 06:17 RDW (11.5-15.5) % APTT 35.8 H 37.5 H (22.0-30.0) sec BUN (7-17) mg/dL Glucose (74-99) mg/dL POC Glucose (mg/dL) (75-99) mg/dL Triglycerides 177 H (<150) mg/dL HDL Cholesterol 26 L (40-60) mg/dL 05/19/17 Range/Units 06:57 RDW (11.5-15.5) % APTT (22.0-30.0) sec BUN (7-17) mg/dL Glucose (74-99) mg/dL POC Glucose (mg/dL) 136 H (75-99) mg/dL Triglycerides (<150) mg/dL HDL Cholesterol (40-60) mg/dL Thrombosis Risk Factor Assmnt - DVT/VTE Prophylaxis DVT/VTE Prophylaxis: Mechanical Prophylaxis ordered - Choose All That Apply Any of the Below Risk Factors Present?: Yes Each Factor Represents 1 point: Age 41-60 years, Hx of IBD, Obesity (BMI >25), Varicose veins Other Risk Factors: No Other congenital or acquired thrombophilia - If yes, enter type in comment: No Thrombosis Risk Factor Assessment Total Risk Factor Score: 4 Thrombosis Risk Factor Assessment Level: Moderate Risk Assessment and Plan Plan: 1 atypical chest pain: Not a clear etiology at this point, patient will be seeing cardiology and for the least possibly 8 to go for stress test, also may be to up her beta neris and take her off of verapamil completely decision will be up to Dr. العراقي. 2 possible reaction to verapamil: Not a clear if the symptoms she presented with has anything to do with it or not patient is frightened of taking her medication back again which will be stopped for now no reason to do any Medrol Dosepak or steroid at this point. 3 hypertension: Has been on losartan 25 mg daily along with beta neris. 4 hyperlipidemia: Continue patient on Lipitor 20 mg daily. 5 chronic lower back pain: Patient has been on hydrocodone and Robaxin she schedule epidural with anesthesia. 6 obstructive sleep apnea: Has been using CPAP on regular basis. 7 severe GERD: Has been on Carafate and Pepcid. 8 chronic neuropathy: Has been on gabapentin 400 mg 3 times a day. 9 type 2 diabetes: Remain on metformin along with Actos continue Humalog before meals meals. Continue to watch patient Accu-Chek with sliding scales coverage. 10 arrhythmia: Patient had more SVT with no sign of A. fib or a flutter has been seen Dr. العراقي had EP testing did not require any ablation and still well managed medication. 11 DVT prophylaxis: Early mobilization and Venodyne boots. 12 GI prophylaxis: Remain on Carafate and Pepcid. CODE STATUS: Full code. Patient placed on the observation unit. CC: Dr. Monsivais
== END 2017-05-19 10:15 | disposition home or self-care (01) ==
LOC: EC 15:08 → 3OBS 18:28
PROVIDERS: ADMIT Internal Medicine Geriatric Medicine; ATTEND Internal Medicine Geriatric Medicine
DX: I47.1 Supraventricular tachycardia (principal); T46.1X5A Adverse effect of calcium-channel blockers, initial encounter; R07.89 Other chest pain; M79.7 Fibromyalgia; K21.9 Gastro-esophageal reflux disease without esophagitis; J45.909 Unspecified asthma, uncomplicated; E78.5 Hyperlipidemia, unspecified; E11.9 Type 2 diabetes mellitus without complications; M19.90 Unspecified osteoarthritis, unspecified site; L40.9 Psoriasis, unspecified; F41.0 Panic disorder [episodic paroxysmal anxiety]; F32.9 Major depressive disorder, single episode, unspecified; I10 Essential (primary) hypertension; E03.9 Hypothyroidism, unspecified; G47.33 Obstructive sleep apnea (adult) (pediatric); G89.29 Other chronic pain; E66.9 Obesity, unspecified; Z87.891 Personal history of nicotine dependence; Z79.899 Other long term (current) drug therapy; Z79.4 Long term (current) use of insulin; Z79.84 Long term (current) use of oral hypoglycemic drugs; Z79.02 Long term (current) use of antithrombotics/antiplatelets; Z79.82 Long term (current) use of aspirin; Z88.1 Allergy status to other antibiotic agents; Z91.041 Radiographic dye allergy status; Z88.5 Allergy status to narcotic agent; Z88.0 Allergy status to penicillin; Z88.8 Allergy status to other drugs, medicaments and biological substances; Z91.048 Other nonmedicinal substance allergy status; Z86.73 Personal history of transient ischemic attack (TIA), and cerebral infarction without residual deficits; Z99.89 Dependence on other enabling machines and devices; Z82.49 Family history of ischemic heart disease and other diseases of the circulatory system; Z68.41 Body mass index [BMI] 40.0-44.9, adult; Z90.49 Acquired absence of other specified parts of digestive tract
CPT/HCPCS: 96365; 96366 ×2; 96376; 96375; 99285; 36415; 94640 ×2; 93005; 85379; 83880; 80061; 80053; 83036; 82550 ×2; 82553 ×2; 83735; 84484 ×2; 85025; 85049; 85610; 85730 ×2; 87040; 71020; G0378 ×2; J1200; J1644 ×2

== ENCOUNTER → 2017-05-21 | Outpatient (CLI) | payer OTHER ==
[2017-05-20 14:18] VITALS: BMI 43.7
[2017-05-21 13:03] VITALS: BP 143/75; PULSE 118; RESP 18; TEMP 98.2
--- NOTE | 2017-05-21 13:17 | P.HPIM ---
History of Present Illness H&P Date: 05/21/17 Chief Complaint: headaches This is a 47-year-old patient referred by Dr. Perkins for chronic pain in head and for occipital nerve blocks. Patient has been taking medications from primary care physician including rare [place] and Ativan medications with some relief. Patient denies adverse drug effects from medications. Patient also denies new-onset weakness, bowel/bladder incontinence, or any other signs or symptoms of cauda equina syndrome. There are no signs of acute intoxication, and no indications of medication diversion or overuse. Patient notes that pain worsens significantly with driving, and improves with rest, sleep and medication. Patient has used several types of medications for pain, including NSAIDS, OPIOIDSand BENZODIAZEPINES. Patient HAS NOT had surgery. Patient HAS NOT had injections previously. Patient HAS NOT had physical therapy recently. In addition to above, 13-point review of systems is also negative for chest pain , shortness of breath, changes in vision, changes in hearing, new onset weakness , abdominal pain, diarrhea, extreme fatigue, malaise, fever, skin changes, homicidal or suicidal ideation, or bowel or bladder incontinence. Vital Signs: Reviewed in EMR Gen: WDWN, AAOx3, NAD HEENT: NCAT, EOMI, hearing grossly normal, tenderness over bilateral occipital ridges, R > L Pulm: resp unlabored Abd: soft, NT, ND Neck: supple, trachea midline ROM in flexion cervical spine: reduced ROM in extension cervical spine: reduced Cervical paravertebral tenderness: + Cervical Facet tenderness: + R > L Spurling's: neg Neuro: CN II-XII grossly intact, muscle strength lower extremities PRESERVED Past Medical History Past Medical History: Asthma, CVA/TIA, Diabetes Mellitus, Fibromyalgia, GERD/ Reflux, Hyperlipidemia, Osteoarthritis (OA), Skin Disorder, Sleep Apnea/CPAP/ BIPAP, Thyroid Disorder Additional Past Medical History / Comment(s): see Dr العراقي H&P, hx migraines, TIA 2016-weakness in hands and legs, two bulging disks, degenerative disk disease, neuopathy-upper and lower extrememties, uses walker, psoriasis, nodules on thyroid, sleep apnea with cpap, RECENT ADMISSION FOR ADVERSE REACTION TO VERAPAMIL History of Any Multi-Drug Resistant Organisms: None Reported Past Surgical History: Adenoidectomy, Cholecystectomy, Heart Catheterization, Orthopedic Surgery, Tonsillectomy Additional Past Surgical History / Comment(s): D&C, carpal tunnel surgery left arm, LT ARM SX FOR "PINCHED NERVE", LT THUMB TRIGGER FINGER sx. rae neuroma removed left foot Past Anesthesia/Blood Transfusion Reactions: No Reported Reaction Additional Past Anesthesia/Blood Transfusion Reaction / Comment(s): difficulty waking from anesthesia Smoking Status: Former smoker - Past Family History Father Family Medical History: Cancer, Syncope Additional Family Medical History / Comment(s): 1992 Mother Family Medical History: Diabetes Mellitus, Hypertension, Osteoarthritis (OA) Additional Family Medical History / Comment(s): MURMUR Sister(s) Family Medical History: Cancer Additional Family Medical History / Comment(s): Depression Medications and Allergies Home Medications Medication Instructions Recorded Confirmed Type DULoxetine HCL [Cymbalta] 60 mg PO DAILY 04/28/16 05/21/17 History Insulin Regular [humuLIN R] 11 units SQ AC-TID 04/28/16 05/21/17 History Losartan [Cozaar] 25 mg PO HS 04/28/16 05/21/17 History metFORMIN HCL ER [Glucophage Xr] 500 mg PO W/LUNCH 04/28/16 05/21/17 History Gabapentin [Neurontin] 400 mg PO TID 09/11/16 05/21/17 History metFORMIN HCL ER [Glucophage Xr] 1,000 mg PO W/SUPPER 09/11/16 05/21/17 History Aspirin EC [Ecotrin Low Dose] 81 mg PO DAILY #30 tablet. 11/07/16 05/21/17 Rx Insulin Regular [humuLIN R] See Protocol SQ AC-TID 12/22/16 05/21/17 History Beclomethasone Dipropionate [Qvar 1 puff INHALATION RT-BID 02/24/17 05/21/17 History 80 mcg] Magnesium Oxide [Mag-Ox] 400 mg PO DAILY 02/24/17 05/21/17 History Clopidogrel [Plavix] 75 mg PO HS 03/16/17 05/21/17 History Dapagliflozin Propanediol [Farxiga] 10 mg PO DAILY 03/18/17 05/21/17 History Albuterol Inhaler [Ventolin Hfa 2 puff INHALATION RT-Q6H PRN 04/16/17 05/21/17 History Inhaler] Montelukast [Singulair] 10 mg PO HS 04/16/17 05/21/17 History Pioglitazone [Actos] 15 mg PO DAILY 04/16/17 05/21/17 History Atorvastatin Calcium [Lipitor] 20 mg PO HS 05/18/17 05/21/17 History Acetaminophen Tab [Tylenol] 650 mg PO Q4HR PRN tab 05/19/17 05/21/17 Rx Allergies Allergy/AdvReac Type Severity Reaction Status Date / Time adhesive Allergy red skin Verified 05/20/17 14:14 adhesive tape Allergy red skin Verified 05/20/17 14:14 Iodinated Contrast- Oral and Allergy Itching Verified 05/20/17 14:14 IV Dye [Iodinated Contrast Media - IV Dye] iodine Allergy Rash/Hives, Verified 05/20/17 14:14 ITCHING prednisone Allergy Rapid Verified 05/20/17 14:14 Heart Rate tramadol Allergy Unknown Verified 05/20/17 14:14 verapamil Allergy Anaphylaxis Verified 05/20/17 14:14 celecoxib [From Celebrex] AdvReac CAUSES GI Verified 05/20/17 14:14 BLEEDING cephalexin monohydrate AdvReac Vomiting Verified 05/20/17 14:14 [From Keflex] diphenhydramine AdvReac Itching Verified 05/21/17 12:53 [From Benadryl] hydrocodone AdvReac Nausea & Verified 05/20/17 14:14 Vomiting Penicillins AdvReac Nausea & Verified 05/20/17 14:14 Vomiting dial soap Allergy Unknown Uncoded 05/20/17 14:14 Results Comments: MRI brain without contrast demonstrates normal signal from the paranasal sinuses no evidence of sinusitis acute bleed mass effect or extradural collections there is mild, subcortical sulci basal cisterns and sylvian fissures demonstrating atrophic changes. Diffusion weighted images demonstrate no abnormal areas of increased signal. Assessment and Plan (1) Occipital neuralgia Status: Chronic (2) Chronic pain syndrome Status: Chronic (3) Cervical spondylosis without myelopathy Status: Chronic Plan: 1. Explanation: Opioid and psychological risk scores were reviewed. Diagnoses , prognoses, and multiple treatment options including but not limited to physical therapy, interventional therapies, adjuvant medical therapies, narcotic medication therapies, and surgery were discussed with the patient and all questions were answered to the patient's satisfaction. 2. Opioid agreement: no opioids prescribed today 3. Counseling: The patient was counseled extensively on BODY MASS INDEX, EXERCISE. Specifically, the patient was instructed regarding the importance of weight control, and exercise in the context of both chronic pain and overall health. 4. Procedures: bilateral occipital nerve block 5. Consultations: none 6. Investigations: none 7. Medications: none prescribed 8. Disposition: f/u for procedure as scheduled. Consider C-spine MRI if little relief. PQRS measures: 1-Patient's medications are documented in the chart. 2-Tobacco use is negative 3-Patient has not had a pneumococcal vaccine. 4-Advanced care planning discussed, patient unable to give. 5-Opioid contract NOT signed with the patient. 6-Pain positive, follow-up visit or procedure scheduled 7-Patient's blood pressure measured and documented, and patient will follow up with the primary care due to hypertension. 8-Patient's weight was measured, and body mass index ABOVE the normal limits, and counseling was done. Patient instructed to follow up with PCP. 9-Patient WAS NOT identified as an unhealthy alcohol user. Time with Patient: Greater than 30
== END | disposition home or self-care (01) ==
LOC: PNWHC3 12:38
PROVIDERS: ATTEND Anesthesiology
DX: M54.81 Occipital neuralgia (principal); M47.812 Spondylosis without myelopathy or radiculopathy, cervical region; J45.909 Unspecified asthma, uncomplicated; K21.9 Gastro-esophageal reflux disease without esophagitis; E78.5 Hyperlipidemia, unspecified; F17.200 Nicotine dependence, unspecified, uncomplicated; Z79.899 Other long term (current) drug therapy; Z88.8 Allergy status to other drugs, medicaments and biological substances; Z79.82 Long term (current) use of aspirin; Z79.84 Long term (current) use of oral hypoglycemic drugs; Z88.5 Allergy status to narcotic agent; Z88.0 Allergy status to penicillin; Z88.6 Allergy status to analgesic agent; Z91.09 Other allergy status, other than to drugs and biological substances
CPT/HCPCS: 99211

== ENCOUNTER 2017-06-08 06:47 | Day surgery (SDC) | payer OTHER ==
[2017-06-02 15:52] VITALS: BMI 43.4
[2017-06-08 07:43] VITALS: RESP 16; TEMP 98.1
[2017-06-08 07:43] LABS: Glucose,Whole Blood 170 mg/dL (75-99)
[2017-06-08] MEDS: LACTATED RINGERS 1,000 ML IV ONE ×2 (07:49→07:50)
--- NOTE | 2017-06-08 08:10 | P.PCN ---
Date of Procedure: 06/08/17 Surgeon: Yobani Yañez Pathology: none sent Condition: stable Disposition: PACU Description of Procedure: Pre-operative diagnosis: 1- Bilateral occipital neuralgia Post Operative Diagnosis: 1- Bilateral occipital neuralgia Procedure: Bilateral occipital nerve block ANESTHESIA: Conscious sedation with Versed/fentanyl. EBL: Minimal PROCEDURE INDICATION: The patient with neck pain and headache secondary to bilateral occipital neuralgia and has failed conservative management, presents for ONB #1 today. Off Plavix > 10 days. PROCEDURE DESCRIPTION / TECHNIQUE: The patient was seen and identified in the preoperative area. Risks, benefits, complications, and alternatives were discussed with the patient (including but not limited to incomplete pain relief , bleeding, infection, nerve damage, and allergies to medications), and the patient agreed to proceed with the procedure and signed the consent after all questions were answered. Patient was taken to the OR and time out was completed to verify proper patient , position, laterality of pain, and allergies. Pt was placed in the sitting position. IV was started. Vital signs remained stable throughout the procedure. Conscious sedation was used during the procedure to decrease patients anxiety. The cervical area and bilateral occipital areas were prepped in the usual sterile fashion. Critical pause was taken. The right occipital ridge was palpated and was then accessed with a 25 G needle after localization with lidocaine 1%. Then after negative aspiration, 3 ml of the total 6 ml block solution containing 5 ml of PF Bupivacaine 0.5% and Kenalog 40 mg was injected. Needle was withdrawn intact. The entire procedure was then repeated on the left side exactly as above. Needle was withdrawn intact and there were no acute complications. DISPOSITION / PLANS: The patient was placed in a supine position and transferred to the recovery area in a stable condition for observation and was discharged from the recovery room after meeting discharge criteria. Home discharge instructions given to the patient by the staff. The patient was reexamined prior to discharge and the patient already had significant relief. The patient will schedule a follow up injection in approximately 2-4 weeks.
[2017-06-08] MEDS ORDERED: IV FLUID CONTINUATION 1,000 ML IV ONE ×2 (08:24)
[2017-06-08 08:41] VITALS: BP 117/83; PULSE 91
== END 2017-06-08 09:02 | disposition home or self-care (01) ==
LOC: ORPAIN 06:47
PROVIDERS: ATTEND Anesthesiology
DX: M54.81 Occipital neuralgia (principal); Z79.891 Long term (current) use of opiate analgesic; Z79.899 Other long term (current) drug therapy; J45.909 Unspecified asthma, uncomplicated; Z87.891 Personal history of nicotine dependence; E11.42 Type 2 diabetes mellitus with diabetic polyneuropathy; Z79.4 Long term (current) use of insulin; M79.7 Fibromyalgia; K21.9 Gastro-esophageal reflux disease without esophagitis; E78.5 Hyperlipidemia, unspecified; M19.90 Unspecified osteoarthritis, unspecified site; I69.359 Hemiplegia and hemiparesis following cerebral infarction affecting unspecified side; G47.30 Sleep apnea, unspecified; Z99.89 Dependence on other enabling machines and devices; L40.9 Psoriasis, unspecified; E04.1 Nontoxic single thyroid nodule; Z79.02 Long term (current) use of antithrombotics/antiplatelets; Z79.82 Long term (current) use of aspirin; Z79.51 Long term (current) use of inhaled steroids; Z91.041 Radiographic dye allergy status; Z88.8 Allergy status to other drugs, medicaments and biological substances; Z91.09 Other allergy status, other than to drugs and biological substances
CPT/HCPCS: 64405; J2250; J3301; J2001; 99152

== ENCOUNTER → 2017-06-29 | Day surgery (SDC) | payer OTHER ==
[2017-06-24 10:18] VITALS: BMI 42.9
[~2017-06-29] MED LIST: IV FLUID CONTINUATION 1,000 ML IV ONE; LACTATED RINGERS 1,000 ML IV SCH; LIDOCAINE 1% 20 ML VIAL (10MG/ML) FOR IV START INTRADERMA ONE
[2017-06-29 06:42] VITALS: RESP 18; TEMP 97.8
[2017-06-29 07:11] LABS: Glucose,Whole Blood 136 mg/dL (75-99)
--- NOTE | 2017-06-29 07:31 | P.PCN ---
Date of Procedure: 06/29/17 Procedure(s) Performed: Pre-operative diagnosis: 1- Bilateral occipital neuralgea Post Operative Diagnosis 1- Bilateral occipital neuralgea Procedure: 1- Bilateral occipital nerve block ANESTHESIA: Conscious sedation with Versed. 2 mg . EBL: Minimal PROCEDURE INDICATION: The patient with neck pain and headache secondary to occipital neuralgea unresponsive to conservative treatments. PROCEDURE DESCRIPTION / TECHNIQUE: The patient was seen and identified in the preoperative area. Risks, benefits, complications, and alternatives were discussed with the patient, the patient agreed to proceed with the procedure and signed the consent. IV was started. Vital signs remained stable throughout the procedure. Patient was taken to the OR and time out was completed. The patient was placed in the sitting position on the procedure table. A pillow was placed under the patients chest to increase the cervical interlaminar space. The cervical area and right occiptial area were prepped with alcohol swab. Critical pause was taken. Vital signs were closely monitored during the procedure. Conscious sedation was used during the procedure to decrease patients anxiety. The right occiptal ridge was palpated and was then accessed with a 25 G needle. Then after negative aspiration, 6 ml of the block solution containing 6 ml of PF Buvicaine 0.5% and Kenalog 20 mg was injected. Needle was withdrawn intact. Then the same procedure was repeated on the left side and related the left occipital nerve block, after negative aspiration 6 mL of the block solution containing ropivacaine 0.5% and 40 mg of Kenalog injected after negative aspiration Patient tolerated procedure well. No acute complications.
[2017-06-29 08:04] VITALS: BP 121/80; PULSE 97
[2017-06-29 08:17] LABS: Glucose,Whole Blood 125 mg/dL (75-99)
== END ==
LOC: ORPAIN 06:15
PROVIDERS: ATTEND Specialist
DX: M54.81 Occipital neuralgia (principal); J45.909 Unspecified asthma, uncomplicated; G47.33 Obstructive sleep apnea (adult) (pediatric); K21.9 Gastro-esophageal reflux disease without esophagitis; E11.9 Type 2 diabetes mellitus without complications; Z88.1 Allergy status to other antibiotic agents; Z88.5 Allergy status to narcotic agent; Z88.0 Allergy status to penicillin; Z88.8 Allergy status to other drugs, medicaments and biological substances; Z91.048 Other nonmedicinal substance allergy status
CPT/HCPCS: 64405; J2250; J3301; 99152

== ENCOUNTER 2017-09-15 13:55 | Observation (INO) | payer OTHER ==
--- NOTE | 2017-09-15 14:24 | ED ---
General Adult HPI - General Chief complaint: Chest Pain Stated complaint: Chest Pressure Time Seen by Provider: 09/15/17 13:56 Source: patient, EMS, RN notes reviewed, old records reviewed Mode of arrival: EMS Limitations: no limitations - History of Present Illness Initial comments: 47-year-old female history hypertension diabetes presents with chief complaint of chest pressure post began approximately 2 hours prior to arrival. We will a 7 out of 10. Nonradiating. Patient is also had some nausea. She complains of lightheadedness which is been present since yesterday evening. She has history of tachycardia, and according to the patient she has been on various rate control medications with minimal relief, she has been evaluated by EP in the past. Patient denies abdominal pain. Denies lower extremity swelling. Patient had recent diagnosis of pneumonia and completed a course of antibiotics several days ago. States her cough is improving. No fever. - Related Data Home Medications Medication Instructions Recorded Confirmed DULoxetine HCL [Cymbalta] 60 mg PO DAILY 04/28/16 09/15/17 Insulin Regular [humuLIN R] 11 units SQ AC-TID 04/28/16 09/15/17 metFORMIN HCL ER [Glucophage Xr] 500 mg PO AC-[id number] 04/28/16 09/15/17 Gabapentin [Neurontin] 600 mg PO TID 09/11/16 09/15/17 metFORMIN HCL ER [Glucophage Xr] 1,000 mg PO W/SUPPER 09/11/16 09/15/17 Insulin Regular [humuLIN R] See Protocol SQ AC-TID 12/22/16 09/15/17 Beclomethasone Dipropionate [Qvar 1 puff INHALATION RT-BID 02/24/17 09/15/17 80 mcg] Magnesium Oxide [Mag-Ox] 400 mg PO DAILY 02/24/17 09/15/17 Dapagliflozin Propanediol [Farxiga] 10 mg PO DAILY 03/18/17 09/15/17 Albuterol Inhaler [Ventolin Hfa 2 puff INHALATION RT-QID PRN 04/16/17 09/15/17 Inhaler] Montelukast [Singulair] 10 mg PO HS 04/16/17 09/15/17 Atorvastatin Calcium [Lipitor] 40 mg PO HS 05/18/17 09/15/17 Ibuprofen [Motrin] 200 - 400 mg PO Q6HR PRN 06/24/17 09/15/17 Losartan Potassium [Cozaar] 25 mg PO HS 06/24/17 09/15/17 Pioglitazone [Actos] 30 mg PO DAILY 09/15/17 09/15/17 Previous Rx's Medication Instructions Recorded Aspirin EC [Ecotrin Low Dose] 81 mg PO DAILY #30 tablet. 11/07/16 Acetaminophen Tab [Tylenol] 650 mg PO Q4HR PRN tab 05/19/17 Allergies Allergy/AdvReac Type Severity Reaction Status Date / Time adhesive Allergy red skin Verified 09/15/17 14:46 Iodinated Contrast- Oral and Allergy Itching Verified 09/15/17 14:46 IV Dye [Iodinated Contrast Media - IV Dye] prednisone Allergy Rapid Verified 09/15/17 14:46 Heart Rate tramadol Allergy Unknown Verified 09/15/17 14:46 verapamil Allergy Anaphylaxis Verified 09/15/17 14:46 celecoxib [From Celebrex] AdvReac CAUSES GI Verified 09/15/17 14:46 BLEEDING cephalexin monohydrate AdvReac Vomiting Verified 09/15/17 14:46 [From Keflex] diphenhydramine AdvReac Itching Verified 09/15/17 14:46 [From Benadryl] hydrocodone AdvReac Nausea & Verified 09/15/17 14:46 Vomiting Penicillins AdvReac Nausea & Verified 09/15/17 14:46 Vomiting Review of Systems ROS Statement: Those systems with pertinent positive or pertinent negative responses have been documented in the HPI. ROS Other: All systems not noted in ROS Statement are negative. Past Medical History Past Medical History: Asthma, CVA/TIA, Diabetes Mellitus, Fibromyalgia, GERD/ Reflux, Hyperlipidemia, Osteoarthritis (OA), Skin Disorder, Sleep Apnea/CPAP/ BIPAP, Thyroid Disorder Additional Past Medical History / Comment(s): hx migraines, TIA 2016-weakness in hands and legs, two bulging disks, degenerative disk disease, neuopathy- upper and lower extremeties, uses walker, psoriasis, nodules on thyroid, bursitis left left , malfunctioning heart valve. on heart monitor since 05/18/17 for rapid heart rate, fell on 06/14/17 contusion to left knee , sprained lt wrist and bruised lt elbow History of Any Multi-Drug Resistant Organisms: None Reported Past Surgical History: Adenoidectomy, Cholecystectomy, EPS, Heart Catheterization, Orthopedic Surgery, Tonsillectomy Additional Past Surgical History / Comment(s): D&C, carpal tunnel surgery left , LT ARM SX FOR "PINCHED NERVE", LT THUMB TRIGGER FINGER, rae neuroma removed left foot Past Anesthesia/Blood Transfusion Reactions: Previous Problems w/ Anesthesia, Motion Sickness Additional Past Anesthesia/Blood Transfusion Reaction / Comment(s): difficulty waking from anesthesia Past Psychological History: Anxiety, Depression, Panic Disorder Smoking Status: Former smoker - Past Family History Father Family Medical History: Cancer Additional Family Medical History / Comment(s): skin Mother Family Medical History: Diabetes Mellitus, Hypertension, Osteoarthritis (OA) Additional Family Medical History / Comment(s): MURMUR Sister(s) Family Medical History: Cancer Additional Family Medical History / Comment(s): ovarian General Exam Limitations: no limitations General appearance: alert, in no apparent distress Head exam: Present: atraumatic, normocephalic Eye exam: Present: normal appearance, PERRL ENT exam: Present: normal exam Neck exam: Present: normal inspection. Absent: tenderness, meningismus Respiratory exam: Present: normal lung sounds bilaterally. Absent: respiratory distress Cardiovascular Exam: Present: normal rhythm, tachycardia GI/Abdominal exam: Present: soft, tenderness (Minimal right upper quadrant tenderness). Absent: distended Extremities exam: Present: normal inspection, normal capillary refill. Absent: pedal edema Back exam: Present: normal inspection, full ROM Neurological exam: Present: alert, oriented X3, CN II-XII intact. Absent: motor sensory deficit Psychiatric exam: Present: normal affect, normal mood Skin exam: Present: warm, dry, intact. Absent: cyanosis, diaphoretic Course Vital Signs 09/15/17 09/15/17 09/15/17 13:55 14:02 15:04 Temperature 98.4 F Pulse Rate 115 H 111 H Pulse Rate [ 85 Right Radial] Respiratory 20 20 Rate Blood Pressure 161/95 121/79 O2 Sat by Pulse 98 95 Oximetry 09/15/17 16:00 Temperature Pulse Rate 115 H Pulse Rate [ Right Radial] Respiratory 20 Rate Blood Pressure 129/80 O2 Sat by Pulse 98 Oximetry EKG Findings - EKG Comments: EKG Findings:: EKG obtained at 1427 shows sinus tachycardia, low voltage QRS, ventricular rate 119, MO interval 158 QRS duration 62, QTC 12/24/1989 ST segment elevation. Repeat EKG obtained at 1551 shows sinus tachycardia, ventricular rate 110, low voltage, MO interval 152, castration 70, QTC 449, no significant change compared to previous. Medical Decision Making - Medical Decision Making 47-year-old female with history of tachycardia not currently on any rate control medication presenting with chest pain and nausea. Patient describes pain as pressure. Previous cardiology notes reviewed, patient does have history of atrial tachycardia. Heart cath from February 2015 at reviewed, patient had normal coronary arteries at that time. Workup including CBC, CMP d-dimer and troponin is negative. Chest x-ray shows no acute findings. Case discussed with the admitting physician Dr. Mandujano, she will accept admission, requests echo and thyroid studies. These are pending. Diagnosis: Chest pain, tachycardia - Lab Data Result diagrams: 09/15/17 14:26 09/15/17 14:26 Lab Results 09/15/17 09/15/17 09/15/17 Range/Units 14:26 14:26 14:26 WBC 8.8 (3.8-10.6) k/uL RBC 4.82 (3.80-5.40) m/uL Hgb 12.5 (11.4-16.0) gm/dL Hct 40.0 (34.0-46.0) % MCV 83.1 (80.0-100.0) fL MCH 25.9 (25.0-35.0) pg MCHC 31.1 (31.0-37.0) g/dL RDW 17.6 H (11.5-15.5) % Plt Count 210 (150-450) k/uL Neutrophils % 77 % Lymphocytes % 16 % Monocytes % 3 % Eosinophils % 2 % Basophils % 0 % Neutrophils # 6.8 (1.3-7.7) k/uL Lymphocytes # 1.4 (1.0-4.8) k/uL Monocytes # 0.3 (0-1.0) k/uL Eosinophils # 0.2 (0-0.7) k/uL Basophils # 0.0 (0-0.2) k/uL Hypochromasia Slight Anisocytosis Slight PT (9.0-12.0) sec INR (<1.2) APTT (22.0-30.0) sec D-Dimer (<0.60) mg/L FEU Sodium 138 (137-145) mmol/L Potassium 4.6 (3.5-5.1) mmol/L Chloride 103 (98-107) mmol/L Carbon Dioxide 25 (22-30) mmol/L Anion Gap 10 mmol/L BUN 23 H (7-17) mg/dL Creatinine 0.87 (0.52-1.04) mg/dL Est GFR (MDRD) Af Amer >60 (>60 ml/min/1.73 sqM) Est GFR (MDRD) Non-Af >60 (>60 ml/min/1.73 sqM) Glucose 214 H (74-99) mg/dL Calcium 9.4 (8.4-10.2) mg/dL Magnesium 1.8 (1.6-2.3) mg/dL Total Bilirubin 0.6 (0.2-1.3) mg/dL AST 21 (14-36) U/L ALT 33 (9-52) U/L Alkaline Phosphatase 109 (38-126) U/L Total Creatine Kinase 40 (30-135) U/L CK-MB (CK-2) 0.5 (0.0-2.4) ng/mL CK-MB (CK-2) Rel Index 1.3 Troponin I <0.012 (0.000-0.034) ng/mL NT-Pro-B Natriuret Pep pg/mL Total Protein 6.9 (6.3-8.2) g/dL Albumin 3.9 (3.5-5.0) g/dL Amylase 49 (30-110) U/L Lipase 150 (23-300) U/L 09/15/17 09/15/17 Range/Units 14:26 14:26 WBC (3.8-10.6) k/uL RBC (3.80-5.40) m/uL Hgb (11.4-16.0) gm/dL Hct (34.0-46.0) % MCV (80.0-100.0) fL MCH (25.0-35.0) pg MCHC (31.0-37.0) g/dL RDW (11.5-15.5) % Plt Count (150-450) k/uL Neutrophils % % Lymphocytes % % Monocytes % % Eosinophils % % Basophils % % Neutrophils # (1.3-7.7) k/uL Lymphocytes # (1.0-4.8) k/uL Monocytes # (0-1.0) k/uL Eosinophils # (0-0.7) k/uL Basophils # (0-0.2) k/uL Hypochromasia Anisocytosis PT 10.2 (9.0-12.0) sec INR 1.0 (<1.2) APTT 23.3 (22.0-30.0) sec D-Dimer 0.23 (<0.60) mg/L FEU Sodium (137-145) mmol/L Potassium (3.5-5.1) mmol/L Chloride (98-107) mmol/L Carbon Dioxide (22-30) mmol/L Anion Gap mmol/L BUN (7-17) mg/dL Creatinine (0.52-1.04) mg/dL Est GFR (MDRD) Af Amer (>60 ml/min/1.73 sqM) Est GFR (MDRD) Non-Af (>60 ml/min/1.73 sqM) Glucose (74-99) mg/dL Calcium (8.4-10.2) mg/dL Magnesium (1.6-2.3) mg/dL Total Bilirubin (0.2-1.3) mg/dL AST (14-36) U/L ALT (9-52) U/L Alkaline Phosphatase (38-126) U/L Total Creatine Kinase (30-135) U/L CK-MB (CK-2) (0.0-2.4) ng/mL CK-MB (CK-2) Rel Index Troponin I (0.000-0.034) ng/mL NT-Pro-B Natriuret Pep 19 pg/mL Total Protein (6.3-8.2) g/dL Albumin (3.5-5.0) g/dL Amylase (30-110) U/L Lipase (23-300) U/L Disposition Clinical Impression: Tachycardia, Chest pain Disposition: ADMITTED IP TO THIS [facility] Condition: Stable Referrals: Sd Monsivais MD [Primary Care Provider] - 1-2 days Decision to Admit Reason: Admit from EC Decision Date: 09/15/17 Decision Time: 16:44
[2017-09-15 14:49] LABS: Anisocytosis Slight; Basophils % (A) 0 %; Eosinophils # (A) 0.2 k/uL (0-0.7); Eosinophils % (A) 2 %; HGB 12.5 gm/dL (11.4-16.0); Hypochromasia Slight; Lymphocytes # (A) 1.4 k/uL (1.0-4.8); Lymphocytes % (A) 16 %; MCH 25.9 pg (25.0-35.0); MCHC 31.1 g/dL (31.0-37.0); MCV 83.1 fL (80.0-100.0); Mean Platelet Volume 7.3; Monocytes # (A) 0.3 k/uL (0-1.0); Monocytes % (A) 3 %; Neutrophils # (A) 6.8 k/uL (1.3-7.7); Neutrophils % (A) 77 %; Platelet Count 210 k/uL (150-450); RBC 4.82 m/uL (3.80-5.40); RDW 17.6 % (11.5-15.5); WBC 8.8 k/uL (3.8-10.6)
[2017-09-15] MEDS ORDERED: SODIUM CHLORIDE 0.9% 500 ML IV ONE (14:53)
--- NOTE | 2017-09-15 14:59 | XR ---
EXAMINATION TYPE: XR chest 2V DATE OF EXAM: 09/15/2017 COMPARISON: 05/18/2017 TECHNIQUE: PA and lateral views submitted. HISTORY: Chest pain FINDINGS: The lungs are clear and there is no pneumothorax, pleural effusion, or focal pneumonia. IMPRESSION: 1. No acute process.
[2017-09-15 15:02] LABS: ALT 33 U/L (9-52); AST 21 U/L (14-36); Albumin 3.9 g/dL (3.5-5.0); Alkaline Phosphatase 109 U/L (38-126); Amylase 49 U/L (30-110); Anion Gap 10 mmol/L; Blood Urea Nitrogen 23 mg/dL (7-17); Calcium 9.4 mg/dL (8.4-10.2); Carbon Dioxide 25 mmol/L (22-30); Chloride 103 mmol/L (98-107); Glucose 214 mg/dL (74-99); Lipase 150 U/L (23-300); Magnesium 1.8 mg/dL (1.6-2.3); Potassium 4.6 mmol/L (3.5-5.1); Sodium 138 mmol/L (137-145); Total Bilirubin 0.6 mg/dL (0.2-1.3); Total Protein 6.9 g/dL (6.3-8.2)
[2017-09-15 15:11] LABS: D-Dimer 0.23 mg/L FEU (<0.60); Partial Thromboplastin Time 23.3 sec (22.0-30.0); Prothrombin Time 10.2 sec (9.0-12.0)
[2017-09-15 15:13] LABS: Creatine Kinase 40 U/L (30-135)
[2017-09-15 15:25] LABS: Creatine Kinase MB 0.5 ng/mL (0.0-2.4); Troponin I <0.012 ng/mL (0.000-0.034)
[2017-09-15] MEDS ORDERED: MORPHINE SULFATE 5 MG/ML SYRINGE IVP STA (15:49)
[2017-09-15] MEDS ORDERED: ACETAMINOPHEN TAB 325 MG TAB PO PRN (16:38)
[2017-09-15] MEDS ORDERED: NALOXONE 0.4 MG/ML 1 ML VIAL IV PRN (16:38)
[2017-09-15] MEDS ORDERED: ONDANSETRON 4 MG/2 ML VIAL IVP PRN (16:38)
[2017-09-15 17:53] LABS: T4, Free (Free Thyroxine) 1.45 ng/dL (0.78-2.19)
[2017-09-15] MEDS: INSULIN REGULAR 100 UNIT/ML VIAL SQ SCH (18:47)
[2017-09-15 20:51] LABS: Creatine Kinase 36 U/L (30-135)
[2017-09-15] MEDS ORDERED: ATORVASTATIN 40 MG TAB PO SCH (21:00)
[2017-09-15] MEDS ORDERED: LOSARTAN 25 MG TAB PO SCH (21:00)
[2017-09-15 21:04] LABS: Creatine Kinase MB 0.5 ng/mL (0.0-2.4); Troponin I <0.012 ng/mL (0.000-0.034)
[2017-09-15 21:21] LABS: Glucose,Whole Blood 209 mg/dL (75-99)
[2017-09-15 21:39] VITALS: BMI 44.4
[2017-09-15] MEDS ORDERED: ALBUTEROL NEBULIZED 2.5 MG/3 ML INHALATION PRN (22:49)
[2017-09-15] MEDS ORDERED: IBUPROFEN 400 MG TAB PO PRN (22:49)
[2017-09-15] MEDS ORDERED: MAGNESIUM OXIDE 400 MG TAB PO SCH (23:00)
[2017-09-15] MEDS ORDERED: MONTELUKAST 10 MG TAB PO SCH (23:00)
[2017-09-15] MEDS: METOPROLOL SUCCINATE (ER) 25 MG TAB.ER.24H PO SCH (23:30)
[2017-09-15] MEDS: GABAPENTIN 300 MG CAP PO SCH (23:30)
[2017-09-16] MEDS ORDERED: HYDROmorphone 2 MG/ML 1 ML SYRINGE IVP PRN
[2017-09-16] MEDS: KETOROLAC 30 MG/ML 1 ML VIAL IVP SCH ×3 (00:23→13:40)
[2017-09-16 03:35] LABS: Creatine Kinase 34 U/L (30-135)
[2017-09-16 03:50] LABS: Creatine Kinase MB 0.5 ng/mL (0.0-2.4); Troponin I <0.012 ng/mL (0.000-0.034)
[2017-09-16 05:02] VITALS: RESP 18
[2017-09-16 06:55] LABS: Glucose,Whole Blood 163 mg/dL (75-99)
[2017-09-16] MEDS ORDERED: metFORMIN 500 MG TAB PO SCH ×2 (07:30→17:30)
[2017-09-16] MEDS ORDERED: BUDESONIDE 0.5 MG/2 ML NEBU INHALATION SCH (08:00)
[2017-09-16 08:36] VITALS: BP 112/59; TEMP 97.7
[2017-09-16] MEDS ORDERED: ASPIRIN 81 MG PO SCH (09:00)
[2017-09-16] MEDS ORDERED: NON-FORMULARY DRUG (Dapagliflozin Propanediol [Farxiga] 10 MG) PO SCH (09:00)
[2017-09-16] MEDS ORDERED: PIOGLITAZONE 30 MG TAB PO SCH (09:00)
[2017-09-16] MEDS ORDERED: DULoxetine HCL 60 MG CAPSULE.DR PO SCH (09:00)
--- NOTE | 2017-09-16 09:18 | ECHOF ---
Referral Reason:cp MEASUREMENTS -------- HEIGHT: 162.6 cm WEIGHT: 116.1 kg BP: RVIDd: 3.8 cm (< 3.3) IVSd: 1.1 cm (0.6 - 1.1) LVIDd: 3.9 cm (3.9 - 5.3) LVPWd: 1.2 cm (0.6 - 1.1) IVSs: 1.5 cm LVIDs: 2.9 cm LVPWs: 1.5 cm Ao Diam: 3.7 cm (2.0 - 3.7) AV Cusp: 1.9 cm (1.5 - 2.6) LA Diam: 3.3 cm (2.7 - 3.8) MV EXCURSION: 14.447 mm (> 18.000) MV EF SLOPE: 41 mm/s (70 - 150) EPSS: 0.5 cm MV E Shaheed: 1.06 m/s MV DecT: 196 ms MV A Shaheed: 0.01 m/s MV E/A Ratio: 71.87 RAP: 5.00 mmHg RVSP: 8.86 mmHg FINDINGS -------- Resting tachycardia (HR>100bpm). This was a technically difficult study with suboptimal views. The left ventricular size is normal. Left ventricular wall thickness is normal. Overall left vent ricular systolic function is normal with, an EF between 55 - 60 %. The right ventricle is mild to moderately enlarged. The left atrium was not well visualized. The right atrium was not well visualized. 1.5mg of Definity was utilized for enhancement of images The aortic valve was not well visualized. There is no evidence of aortic regurgitation. There is no evidence of aortic stenosis. The mitral valve was not well visualized. There is trace mitral regurgitation. The tricuspid valve was not well visualized. Trace tricuspid regurgitation present. Right ventric ular systolic pressure is normal at < 35 mmHg. There is no evidence of pulmonary hypertension. The pulmonic valve was not well visualized. The aortic root size is normal. Normal inferior vena cava with less than 50% inspiratory collapse consistent with estimated right atr ial pressure of 15 mmHg. The pericardium is normal. There is no pericardial effusion. CONCLUSIONS -------- 1. Resting tachycardia (HR>100bpm). 2. This was a technically difficult study with suboptimal views. 3. The left ventricular size is normal. 4. Overall left ventricular systolic function is normal with, an EF between 55 - 60 %. 5. The right ventricle is mild to moderately enlarged. 6. The left atrium was not well visualized. 7. The right atrium was not well visualized. 8. 1.5mg of Definity was utilized for enhancement of images 9. The aortic valve was not well visualized. 10. The mitral valve was not well visualized. 11. There is trace mitral regurgitation. 12. The tricuspid valve was not well visualized. 13. Trace tricuspid regurgitation present. 14. Right ventricular systolic pressure is normal at < 35 mmHg. 15. There is no evidence of pulmonary hypertension. 16. The pulmonic valve was not well visualized. 17. The aortic root size is normal. 18. Normal inferior vena cava with less than 50% inspiratory collapse consistent with estimated right atrial pressure of 15 mmHg. 19. There is no pericardial effusion. [employer]UMENT REPAIRER: Lucho Rivas RDCS
[2017-09-16 09:43] VITALS: PULSE 82
[2017-09-16] MEDS: GABAPENTIN 300 MG CAP PO SCH (10:57)
[2017-09-16] MEDS: METOPROLOL SUCCINATE (ER) 25 MG TAB.ER.24H PO SCH (10:57)
[2017-09-16] MEDS: INSULIN REGULAR 100 UNIT/ML VIAL SQ SCH ×2 (11:06→13:37)
--- NOTE | 2017-09-16 11:35 | P.CRDCN ---
History of Present Illness Consult date: 09/16/17 History of present illness: Mrs. Andrade is a pleasant 47-year-old female with past medical history significant for hypertension, diabetes mellitus, dyslipidemia and palpitations. She follows regularly with Dr. Chang as an outpatient. She presented to the emergency department yesterday after feeling an episode of tachycardia was sitting on the couch watching TV. She states her heart rate was 128 by palpation. She presented to the hospital heart rate was 115 EKG on arrival reveals sinus tachycardia with no acute ST or T-wave abnormalities. She complains of associated shortness of breath, dizziness and nausea. She also felt discomfort in her chest. The discomfort was intense sternal region described as a tight sensation. No aggravating factors. The discomfort persisted until she was given toradol in ED. She denies actual syncope or vomiting. At the time of my exam she is seen sleeping in bed in no acute distress. She denies chest pain, shortness of breath, dizziness, palpitations or nausea/vomiting. She has had a workup in the past with a 30-day event monitor which was unremarkable. EP study was also performed secondary to persistent atrial tachycardia with failed management on atenolol and revealed arrhythmia that resembles sinus tachycardia that may be wither sinus node re- entry or high right atrial tachycardia. At that time verapamil was initiated at 180 mg she was unable to tolerate this secondary to itching and was switched to toprol. She has undergone cardiac catheterization in 2015 which revealed normal coronary arteries with no evidence of ischemia. Chest xray negative for an acute cardiopulmonary process. Laboratory data reviewed, hemoglobin 12.5, platelets 210, d-dimer negative, potassium 4.6, magnesium 1.8, cardiac enzymes negative 3, thyroid panel within normal limits. Current cardiac medications include Toprol 25 mg daily, losartan 25 mg daily, atorvastatin 40 mg daily, aspirin 81 mg daily. Telemetry tracings have been unremarkable since admission. Review of Systems CONSTITUTIONAL: Denies fever. Denies chills. EYES: Denies blurred vision. Denies vision changes. Denies eye pain. EARS, NOSE, MOUTH & THROAT: Denies headache. Denies sore throat. Denies ear pain. CARDIOVASCULAR: Complains of chest discomfort with shortness of breath and palpitations while at home, resolved. Denies orthopnea. Denies PND. RESPIRATORY: Denies cough. GASTROINTESTINAL: Denies abdominal pain. Denies diarrhea. Denies constipation. Denies nausea. Denies vomiting. MUSCULOSKELETAL: Denies myalgias. INTEGUMENTARY: Denies pruitis. Denies rash. NEUROLOGIC: Denies numbness. Denies tingling. Denies weakness. PSYCHIATRIC: Denies anxiety. Denies depression. ENDOCRINE: Denies fatigue. Denies weight change. Denies polydipsia. Denies polyurina. GENITOURINARY: Denies burning, hematuria or urgency with micturation. HEMATOLOGIC: Denies history of anemia. Denies bleeding. Past Medical History Past Medical History: Asthma, CVA/TIA, Diabetes Mellitus, Fibromyalgia, GERD/ Reflux, Hyperlipidemia, Osteoarthritis (OA), Skin Disorder, Sleep Apnea/CPAP/ BIPAP, Thyroid Disorder Additional Past Medical History / Comment(s): hx migraines, TIA 2016-weakness in hands and legs, two bulging disks, degenerative disk disease, neuopathy- upper and lower extremeties, uses walker, psoriasis, nodules on thyroid, bursitis left hip , malfunctioning heart valve. on heart monitor since 05/18/17 for rapid heart rate, fell on 06/14/17 contusion to left knee , sprained lt wrist and bruised lt elbow History of Any Multi-Drug Resistant Organisms: None Reported Past Surgical History: Adenoidectomy, Cholecystectomy, EPS, Heart Catheterization, Orthopedic Surgery, Tonsillectomy Additional Past Surgical History / Comment(s): D&C, carpal tunnel surgery left , LT ARM SX FOR "PINCHED NERVE", LT THUMB TRIGGER FINGER, rae neuroma removed left foot Past Anesthesia/Blood Transfusion Reactions: Previous Problems w/ Anesthesia, Motion Sickness Additional Past Anesthesia/Blood Transfusion Reaction / Comment(s): difficulty waking from anesthesia Smoking Status: Former smoker - Past Family History Father Family Medical History: Cancer Additional Family Medical History / Comment(s): skin Mother Family Medical History: Diabetes Mellitus, Hypertension, Osteoarthritis (OA) Additional Family Medical History / Comment(s): MURMUR Sister(s) Family Medical History: Cancer Additional Family Medical History / Comment(s): ovarian Medications and Allergies Home Medications Medication Instructions Recorded Confirmed Type DULoxetine HCL [Cymbalta] 60 mg PO DAILY 04/28/16 09/15/17 History Insulin Regular [humuLIN R] 11 units SQ AC-TID 04/28/16 09/15/17 History metFORMIN HCL ER [Glucophage Xr] 500 mg PO AC-BRKFST 04/28/16 09/15/17 History Gabapentin [Neurontin] 600 mg PO TID 09/11/16 09/15/17 History metFORMIN HCL ER [Glucophage Xr] 1,000 mg PO W/SUPPER 09/11/16 09/15/17 History Aspirin EC [Ecotrin Low Dose] 81 mg PO DAILY #30 tablet. 11/07/16 09/15/17 Rx Insulin Regular [humuLIN R] See Protocol SQ AC-TID 12/22/16 09/15/17 History Beclomethasone Dipropionate [Qvar 1 puff INHALATION RT-BID 02/24/17 09/15/17 History 80 mcg] Magnesium Oxide [Mag-Ox] 400 mg PO HS 02/24/17 09/15/17 History Dapagliflozin Propanediol [Farxiga] 10 mg PO DAILY 03/18/17 09/15/17 History Albuterol Inhaler [Ventolin Hfa 2 puff INHALATION RT-QID PRN 04/16/17 09/15/17 History Inhaler] Montelukast [Singulair] 10 mg PO HS 04/16/17 09/15/17 History Atorvastatin Calcium [Lipitor] 40 mg PO HS 05/18/17 09/15/17 History Ibuprofen [Motrin] 400 mg PO Q6HR PRN 06/24/17 09/15/17 History Losartan Potassium [Cozaar] 25 mg PO HS 06/24/17 09/15/17 History Pioglitazone [Actos] 30 mg PO DAILY 09/15/17 09/15/17 History Cholecalciferol (Vitamin D3) 2,000 unit PO DAILY #30 capsule 09/16/17 Rx [Vitamin D3] Ketorolac [Toradol] 10 mg PO Q8H #15 tab 09/16/17 Rx Metoprolol Succinate (ER) [Toprol 25 mg PO DAILY #30 tab.er.24h 09/16/17 Rx XL] Allergies Allergy/AdvReac Type Severity Reaction Status Date / Time adhesive Allergy red skin Verified 09/15/17 21:12 Iodinated Contrast- Oral and Allergy Itching Verified 09/15/17 21:12 IV Dye [Iodinated Contrast Media - IV Dye] prednisone Allergy Rapid Verified 09/15/17 21:12 Heart Rate tramadol Allergy Unknown Verified 09/15/17 21:12 verapamil Allergy Anaphylaxis Verified 09/15/17 21:12 celecoxib [From Celebrex] AdvReac CAUSES GI Verified 09/15/17 21:12 BLEEDING cephalexin monohydrate AdvReac Vomiting Verified 09/15/17 21:12 [From Keflex] diphenhydramine AdvReac Itching Verified 09/15/17 21:12 [From Benadryl] hydrocodone AdvReac Nausea & Verified 09/15/17 21:12 Vomiting Penicillins AdvReac Nausea & Verified 09/15/17 21:12 Vomiting Physical Exam Vitals: Vital Signs Temp Pulse Pulse Pulse Resp BP BP 09/16/17 09:43 82 09/16/17 09:32 80 09/16/17 08:00 97.7 F 80 18 112/59 09/16/17 04:00 97.9 F 84 18 107/59 09/16/17 00:00 97.8 F 94 20 130/78 09/15/17 20:00 20 09/15/17 18:32 97.4 F L 118 H 18 137/89 09/15/17 16:00 115 H 20 129/80 09/15/17 15:04 111 H 20 121/79 09/15/17 14:02 98.4 F 115 H 20 161/95 09/15/17 13:55 85 Pulse Ox 09/16/17 09:43 09/16/17 09:32 09/16/17 08:00 95 09/16/17 04:00 95 09/16/17 00:00 97 09/15/17 20:00 09/15/17 18:32 96 09/15/17 16:00 98 09/15/17 15:04 95 09/15/17 14:02 98 09/15/17 13:55 Intake and Output 09/15/17 09/16/17 09/16/17 22:59 06:59 14:59 Intake Total 1080 Balance 1080 Intake: Oral 1080 Other: Voiding Method Toilet # Voids 1 Weight 117.3 kg Blood pressure 112/59 heart rate 80 afebrile GENERAL: This is a 47-year-old female in no apparent distress at the time of my examination. Morbidly obese. HEENT: Head is atraumatic, normocephalic. Pupils are equal, round. Sclerae anicteric. Conjunctivae are clear. Mucous membranes of the mouth are moist. Neck is supple. There is no jugular venous distention. No carotid bruit is heard. LUNGS: Clear to auscultation no wheezes, rales or rhonchi. No chest wall tenderness is noted on palpation or with deep breathing. HEART: Regular rate and rhythm without murmurs, rubs or gallops. S1 and S2 heard. ABDOMEN: Soft, nontender. Bowel sounds are heard. No organomegaly noted. EXTREMITIES: 2+ peripheral pulses with no evidence of peripheral edema and no calf tenderness noted. NEUROLOGIC: Patient is awake, alert and oriented x3. Results 09/15/17 14:26 09/15/17 14:26 Cardiac Enzymes 09/15/17 09/15/17 09/15/17 Range/Units 14:26 14:26 20:19 AST 21 (14-36) U/L CK-MB (CK-2) 0.5 0.5 (0.0-2.4) ng/mL Troponin I <0.012 <0.012 (0.000-0.034) ng/mL 09/16/17 Range/Units 02:17 AST (14-36) U/L CK-MB (CK-2) 0.5 (0.0-2.4) ng/mL Troponin I <0.012 (0.000-0.034) ng/mL Coagulation 09/15/17 Range/Units 14:26 PT 10.2 (9.0-12.0) sec APTT 23.3 (22.0-30.0) sec CBC 09/15/17 Range/Units 14:26 WBC 8.8 (3.8-10.6) k/uL RBC 4.82 (3.80-5.40) m/uL Hgb 12.5 (11.4-16.0) gm/dL Hct 40.0 (34.0-46.0) % Plt Count 210 (150-450) k/uL Comprehensive Metabolic Panel 09/15/17 Range/Units 14:26 Sodium 138 (137-145) mmol/L Potassium 4.6 (3.5-5.1) mmol/L Chloride 103 (98-107) mmol/L Carbon Dioxide 25 (22-30) mmol/L BUN 23 H (7-17) mg/dL Creatinine 0.87 (0.52-1.04) mg/dL Glucose 214 H (74-99) mg/dL Calcium 9.4 (8.4-10.2) mg/dL AST 21 (14-36) U/L ALT 33 (9-52) U/L Alkaline Phosphatase 109 (38-126) U/L Total Protein 6.9 (6.3-8.2) g/dL Albumin 3.9 (3.5-5.0) g/dL Current Medications Generic Name Dose Route Start Last Admin Trade Name Freq PRN Reason Stop Dose Admin Acetaminophen 650 mg 09/15/17 16:38 Tylenol Tab PO Q6HR PRN Mild Pain or Fever > 100.5 Albuterol Sulfate 2 mg 09/15/17 22:49 Ventolin Nebulized INHALATION RT-QID PRN Shortness Of Breath Aspirin 81 mg 09/16/17 09:00 09/16/17 10:57 Aspirin PO 81 mg DAILY MICHAEL Administration Atorvastatin Calcium 40 mg 09/15/17 21:00 09/15/17 21:39 Lipitor PO 40 mg HS MICHAEL Administration Budesonide 0.5 mg 09/16/17 08:00 09/16/17 09:30 Pulmicort INHALATION 0.5 mg RT-BID MICHAEL Administration Duloxetine HCl 60 mg 09/16/17 09:00 09/16/17 10:57 Cymbalta PO 60 mg DAILY MICHAEL Administration Gabapentin 600 mg 09/15/17 23:00 09/16/17 10:57 Neurontin PO 600 mg TID MICHAEL Administration Hydromorphone HCl 0.5 mg 09/16/17 00:00 Dilaudid IVP Q3HR PRN SEVERE Pain Ibuprofen 400 mg 09/15/17 22:49 Motrin PO Q6HR PRN MODERATE Pain Insulin Human Regular 11 unit 09/15/17 17:30 09/16/17 11:06 Humulin R SQ Not Given AC-TID MICHAEL Ketorolac Tromethamine 30 mg 09/16/17 00:00 09/16/17 06:00 Toradol IVP 09/20/17 00:00 30 mg Q6HR MICHAEL Administration Losartan Potassium 25 mg 09/15/17 21:00 09/15/17 21:39 Cozaar PO 25 mg HS MICHAEL Administration Magnesium Oxide 400 mg 09/15/17 23:00 09/15/17 23:30 Mag-Ox PO 400 mg HS MICHAEL Administration Metformin HCl 500 mg 09/16/17 07:30 09/16/17 10:57 Glucophage PO 500 mg AC-BRKFST MICHAEL Administration Metformin HCl 1,000 mg 09/16/17 17:30 Glucophage PO W/SUPPER MICHAEL Metoprolol Succinate 25 mg 09/15/17 23:00 09/16/17 10:57 Toprol Xl PO 25 mg DAILY MICHAEL Administration Montelukast Sodium 10 mg 09/15/17 23:00 09/15/17 23:30 Singulair PO 10 mg HS MICHAEL Administration Naloxone HCl 0.2 mg 09/15/17 16:38 Narcan IV Q2M PRN Opioid Reversal Non-Formulary Medication 10 mg 09/16/17 09:00 09/16/17 11:06 Dapagliflozin Propanediol [Farxiga] PO Not Given DAILY MICHAEL Ondansetron HCl 4 mg 09/15/17 16:38 09/16/17 00:25 Zofran IVP 4 mg Q8HR PRN Administration Nausea And Vomiting Pioglitazone HCl 30 mg 09/16/17 09:00 09/16/17 10:58 Actos PO 30 mg DAILY MICHAEL Administration Intake and Output 09/15/17 09/16/17 09/16/17 22:59 06:59 14:59 Intake Total 1080 Balance 1080 Intake: Oral 1080 Other: Voiding Method Toilet # Voids 1 Weight 117.3 kg 09/15/17 14:26 09/15/17 14:26 Assessment and Plan Assessment: ASSESSMENT 1. Chest pain, atypical with negative cardiac enzymes and normal EKG. Acute coronary event has been ruled out. 2. Palpitations with EKG revealing sinus tachycardia, resolved 3. Hypertension 4. Dyslipidemia 5. Diabetes mellitus 6. Morbid obesity PLAN Obtain 2D echocardiogram and doppler study to assess cardiac structure and function. Recommend possible discontinuation of toradol secondary to fact it may cause tachycardia. No further cardiac workup at this time, she is stable for discharge to follow up with Dr. Chang in 4-6 weeks. The above impression and plan of care have been discussed and directed by the signing physician. Katherine Reilly, nurse practitioner, acting as scribe for signing physician.
[2017-09-16 12:10] LABS: Glucose,Whole Blood 246 mg/dL (75-99)
--- NOTE | 2017-09-16 15:03 | P.HPIM ---
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 Chang and Dr. العراقي, with a past medical history of CT on the care of Dr. العراقي that is post cardiac ablation, last heart catheterization 2 years ago. asthma moderate persistent, TIA, diabetes mellitus type 2, fibromyalgia, gastroesophageal reflux disease, hyperlipidemia, osteoarthritis, sleep apnea, migraine headaches, chronic back pain with degenerative disc disease, psoriasis , thyroid nodules. Patient states that she came in because her blood pressure was elevated and she had chest pain. She was sitting and watching TV with her family. Chest pain was in the midsternal across her chest and started as a pressure like someone was sitting on her chest and then when she came into the emergency center was a stabbing type pain. She states she has had 220 ounce diet Cokes in the last 2 days but otherwise does not drink caffeine. She was given morphine in the chest pain subsided a little. During the night she received Toradol and the chest pain eased. She now has a little bit of pain. She does have pain with deep inspiration. Positive cough after nebulizer treatment here. He was tachycardic running 1:15. Patient was placed in the observation unit and seen in consultation by cardiology with plan start metoprolol XL 25 mg daily, cleared for discharge and follow-up with Dr. العراقي. Review of Systems All systems: negative Constitutional: Denies chills, Denies fever Eyes: denies blurred vision, denies pain Ears, nose, mouth and throat: Denies headache, Denies sore throat Cardiovascular: Reports chest pain, Reports shortness of breath, Denies lightheadedness, Denies syncope Respiratory: Reports cough, Reports dyspnea, Denies cough with sputum, Denies excessive sputum, Denies hemoptysis, Denies home oxygen, Denies wheezing Gastrointestinal: Denies abdominal pain, Denies diarrhea, Denies nausea, Denies vomiting Genitourinary: Denies dysuria, Denies hematuria Musculoskeletal: Denies myalgias Integumentary: Denies pruritus, Denies rash Neurological: Denies numbness, Denies weakness Psychiatric: Denies anxiety, Denies depression Endocrine: Denies fatigue, Denies weight change Past Medical History Past Medical History: Asthma, CVA/TIA, Diabetes Mellitus, Fibromyalgia, GERD/ Reflux, Hyperlipidemia, Osteoarthritis (OA), Skin Disorder, Sleep Apnea/CPAP/ BIPAP, Thyroid Disorder Additional Past Medical History / Comment(s): hx migraines, TIA 2016-weakness in hands and legs, two bulging disks, degenerative disk disease, neuopathy- upper and lower extremeties, uses walker, psoriasis, nodules on thyroid, bursitis left hip , malfunctioning heart valve, SVT History of Any Multi-Drug Resistant Organisms: None Reported Past Surgical History: Adenoidectomy, Cholecystectomy, EPS, Heart Catheterization, Orthopedic Surgery, Tonsillectomy Additional Past Surgical History / Comment(s): D&C, carpal tunnel surgery left , LT ARM SX FOR "PINCHED NERVE", LT THUMB TRIGGER FINGER, rae neuroma removed left foot, cardiac ablation Past Anesthesia/Blood Transfusion Reactions: Previous Problems w/ Anesthesia, Motion Sickness Additional Past Anesthesia/Blood Transfusion Reaction / Comment(s): difficulty waking from anesthesia Smoking Status: Former smoker Additional Past Alcohol Use History / Comment(s): started smoking at age 13 one half pack per day and quit in the early - Past Family History Father Family Medical History: Cancer Additional Family Medical History / Comment(s): skin Mother Family Medical History: Diabetes Mellitus, Hypertension, Osteoarthritis (OA) Additional Family Medical History / Comment(s): MURMUR Sister(s) Family Medical History: Cancer Additional Family Medical History / Comment(s): ovarian Medications and Allergies Home Medications Medication Instructions Recorded Confirmed Type DULoxetine HCL [Cymbalta] 60 mg PO DAILY 04/28/16 09/15/17 History Insulin Regular [humuLIN R] 11 units SQ AC-TID 04/28/16 09/15/17 History metFORMIN HCL ER [Glucophage Xr] 500 mg PO AC-BRKFST 04/28/16 09/15/17 History Gabapentin [Neurontin] 600 mg PO TID 09/11/16 09/15/17 History metFORMIN HCL ER [Glucophage Xr] 1,000 mg PO W/SUPPER 09/11/16 09/15/17 History Aspirin EC [Ecotrin Low Dose] 81 mg PO DAILY #30 tablet. 11/07/16 09/15/17 Rx Insulin Regular [humuLIN R] See Protocol SQ AC-TID 12/22/16 09/15/17 History Beclomethasone Dipropionate [Qvar 1 puff INHALATION RT-BID 02/24/17 09/15/17 History 80 mcg] Magnesium Oxide [Mag-Ox] 400 mg PO HS 02/24/17 09/15/17 History Dapagliflozin Propanediol [Farxiga] 10 mg PO DAILY 03/18/17 09/15/17 History Albuterol Inhaler [Ventolin Hfa 2 puff INHALATION RT-QID PRN 04/16/17 09/15/17 History Inhaler] Montelukast [Singulair] 10 mg PO HS 04/16/17 09/15/17 History Atorvastatin Calcium [Lipitor] 40 mg PO HS 05/18/17 09/15/17 History Ibuprofen [Motrin] 400 mg PO Q6HR PRN 06/24/17 09/15/17 History Losartan Potassium [Cozaar] 25 mg PO HS 06/24/17 09/15/17 History Pioglitazone [Actos] 30 mg PO DAILY 09/15/17 09/15/17 History Cholecalciferol (Vitamin D3) 2,000 unit PO DAILY #30 capsule 09/16/17 Rx [Vitamin D3] Metoprolol Succinate (ER) [Toprol 25 mg PO DAILY #30 tab.er.24h 09/16/17 Rx XL] Allergies Allergy/AdvReac Type Severity Reaction Status Date / Time adhesive Allergy red skin Verified 09/15/17 21:12 Iodinated Contrast- Oral and Allergy Itching Verified 09/15/17 21:12 IV Dye [Iodinated Contrast Media - IV Dye] prednisone Allergy Rapid Verified 09/15/17 21:12 Heart Rate tramadol Allergy Unknown Verified 09/15/17 21:12 verapamil Allergy Anaphylaxis Verified 09/15/17 21:12 celecoxib [From Celebrex] AdvReac CAUSES GI Verified 09/15/17 21:12 BLEEDING cephalexin monohydrate AdvReac Vomiting Verified 09/15/17 21:12 [From Keflex] diphenhydramine AdvReac Itching Verified 09/15/17 21:12 [From Benadryl] hydrocodone AdvReac Nausea & Verified 09/15/17 21:12 Vomiting Penicillins AdvReac Nausea & Verified 09/15/17 21:12 Vomiting Physical Exam Vitals: Vital Signs Temp Pulse Pulse Pulse Resp BP BP 09/16/17 09:43 82 09/16/17 09:32 80 09/16/17 08:00 97.7 F 80 18 112/59 09/16/17 04:00 97.9 F 84 18 107/59 09/16/17 00:00 97.8 F 94 20 130/78 09/15/17 20:00 20 09/15/17 18:32 97.4 F L 118 H 18 137/89 09/15/17 16:00 115 H 20 129/80 09/15/17 15:04 111 H 20 121/79 09/15/17 14:02 98.4 F 115 H 20 161/95 09/15/17 13:55 85 Pulse Ox 09/16/17 09:43 09/16/17 09:32 09/16/17 08:00 95 09/16/17 04:00 95 09/16/17 00:00 97 09/15/17 20:00 09/15/17 18:32 96 09/15/17 16:00 98 09/15/17 15:04 95 09/15/17 14:02 98 09/15/17 13:55 Intake and Output 09/15/17 09/16/17 09/16/17 22:59 06:59 14:59 Intake Total 1080 Balance 1080 Intake: Oral 1080 Other: Voiding Method Toilet # Voids 1 Weight 117.3 kg - Constitutional General appearance: no average body habitus, cooperative, no disheveled, no mild distress, no morbidly obese, no acute distress, no obese, no severe distress, no thin - EENT Eyes: no abnormal pupil, no anicteric sclerae, no disc margins sharp, no edentulous, no EOMI, no PERRLA, no fundus normal, no photophobia, no dentition normal, no poor dentition, no ptosis, no scleral icterus, normal appearance ENT: no hard of hearing, no hearing grossly normal, no NA/AT, normal oropharynx , no other, no pharyngeal erythema, no thrush, no tonsillar exudates, no tonsillar swelling Ears: bilateral: normal - Neck Neck: no lymphadenopathy, normal ROM, no other, no rigidity, no stridor, no thyromegaly Carotids: bilateral: upstroke normal Thyroid: bilateral: normal size - Respiratory Respiratory: bilateral: CTA - Cardiovascular Rhythm: regular Heart sounds: normal: S1, S2 Abnormal Heart Sounds: systolic murmur - Gastrointestinal General gastrointestinal: no absent bowel sounds, no decreased bowel sounds, no distended, no hepatomegaly, no hyperactive bowel sounds, normal bowel sounds, no organomegaly, no rigid, scaphoid, no soft, no splenomegaly, no tenderness, no umbilical hernia, no ventral hernia - Integumentary Integumentary: no calor, no cellulitis, no cyanotic, no decreased turgor, no flushed, no jaundiced, normal, no normal turgor, pale, rash, no ulcer - Neurologic Neurologic: CNII-XII intact - Musculoskeletal Musculoskeletal: gait normal, generalized weakness, strength equal bilaterally, no right sided weakness, no left sided weakness - Psychiatric Psychiatric: A&O x's 3, appropriate affect Results CBC & Chem 7: 09/15/17 14:26 09/15/17 14:26 Labs: Abnormal Lab Results - Last 24 Hours (Table) 09/15/17 09/15/17 09/15/17 Range/Units 14:26 14:26 21:19 RDW 17.6 H (11.5-15.5) % BUN 23 H (7-17) mg/dL Glucose 214 H (74-99) mg/dL POC Glucose (mg/dL) 209 H (75-99) mg/dL 09/16/17 Range/Units 06:52 RDW (11.5-15.5) % BUN (7-17) mg/dL Glucose (74-99) mg/dL POC Glucose (mg/dL) 163 H (75-99) mg/dL Thrombosis Risk Factor Assmnt - DVT/VTE Prophylaxis DVT/VTE Prophylaxis: Pharmacologic Prophylaxis ordered - Choose All That Apply Each Factor Represents 1 point: Age 41-60 years, Obesity (BMI >25) Thrombosis Risk Factor Assessment Total Risk Factor Score: 2 Thrombosis Risk Factor Assessment Level: Low Risk Assessment and Plan Plan: 1. Atypical chest pain: Patient was seen by cardiology, heart is on metoprolol tartrate, cleared for discharge and follow-up with Dr. العراقي. 2. SVT under the care of Dr. Torres status post previous ablation. 3. Hypertension: Has been on losartan 25 mg daily along with beta neris. 4. Hyperlipidemia: Continue patient on Lipitor 20 mg daily. 5. Chronic lower back pain and chronic neuropathy from degenerative disc disease and diabetes: Patient has been on Neurontin and Motrin. 6. Obstructive sleep apnea: Has been using CPAP on regular basis. 7. GERD 8. Type 2 diabetes: Remain on metformin, Actos, Farxiga. 9. Moderate persistent asthma. Continue Ventolin inhaler, Qvar, Singulair. Patient placed on the observation unit. Discharge plan: Home Discharge medication list: DULoxetine HCL [Cymbalta] 60 mg PO DAILY 04/28/16 [History] Insulin Regular [humuLIN R] 11 units SQ AC-TID 04/28/16 [History] metFORMIN HCL ER [Glucophage Xr] 500 mg PO AC-BRKFST 04/28/16 [History] Gabapentin [Neurontin] 600 mg PO TID 09/11/16 [History] metFORMIN HCL ER [Glucophage Xr] 1,000 mg PO W/SUPPER 09/11/16 [History] Aspirin EC [Ecotrin Low Dose] 81 mg PO DAILY #30 tablet. 11/07/16 [Rx] Insulin Regular [humuLIN R] See Protocol SQ AC-TID 12/22/16 [History] Beclomethasone Dipropionate [Qvar 80 mcg] 1 puff INHALATION RT-BID 02/24/17 [ History] Magnesium Oxide [Mag-Ox] 400 mg PO HS 02/24/17 [History] Dapagliflozin Propanediol [Farxiga] 10 mg PO DAILY 03/18/17 [History] Albuterol Inhaler [Ventolin Hfa Inhaler] 2 puff INHALATION RT-QID PRN 04/16/17 [ History] Montelukast [Singulair] 10 mg PO HS 04/16/17 [History] Atorvastatin Calcium [Lipitor] 40 mg PO HS 05/18/17 [History] Ibuprofen [Motrin] 400 mg PO Q6HR PRN 06/24/17 [History] Losartan Potassium [Cozaar] 25 mg PO HS 06/24/17 [History] Pioglitazone [Actos] 30 mg PO DAILY 09/15/17 [History] Cholecalciferol (Vitamin D3) [Vitamin D3] 2,000 unit PO DAILY #30 capsule [Rx] Metoprolol Succinate (ER) [Toprol XL] 25 mg PO DAILY #30 tab.er.24h 09/16/17 [Rx ] Impression and plan of care have been directed as dictated by the signing physician. Gisselle Kirby nurse practitioner acting as scribe for signing physician.
== END 2017-09-16 14:04 | disposition home or self-care (01) ==
LOC: EC 13:55 → 3OBS 16:38
PROVIDERS: ADMIT Family Medicine; ATTEND Family Medicine
DX: R07.89 Other chest pain (principal); R00.2 Palpitations; I10 Essential (primary) hypertension; E78.5 Hyperlipidemia, unspecified; E11.40 Type 2 diabetes mellitus with diabetic neuropathy, unspecified; E66.01 Morbid (severe) obesity due to excess calories; R42 Dizziness and giddiness; Z68.41 Body mass index [BMI] 40.0-44.9, adult; R05 Cough; R11.0 Nausea; M79.7 Fibromyalgia; K21.9 Gastro-esophageal reflux disease without esophagitis; M19.90 Unspecified osteoarthritis, unspecified site; I69.359 Hemiplegia and hemiparesis following cerebral infarction affecting unspecified side; L40.9 Psoriasis, unspecified; F41.0 Panic disorder [episodic paroxysmal anxiety]; F32.9 Major depressive disorder, single episode, unspecified; F41.9 Anxiety disorder, unspecified; I47.1 Supraventricular tachycardia; J45.40 Moderate persistent asthma, uncomplicated; G89.29 Other chronic pain; M54.5 Low back pain; E04.2 Nontoxic multinodular goiter; G43.909 Migraine, unspecified, not intractable, without status migrainosus; Z79.4 Long term (current) use of insulin; Z79.84 Long term (current) use of oral hypoglycemic drugs; Z79.899 Other long term (current) drug therapy; Z79.51 Long term (current) use of inhaled steroids; Z88.1 Allergy status to other antibiotic agents; Z79.82 Long term (current) use of aspirin; Z91.041 Radiographic dye allergy status; Z88.5 Allergy status to narcotic agent; Z88.0 Allergy status to penicillin; Z88.8 Allergy status to other drugs, medicaments and biological substances; Z91.048 Other nonmedicinal substance allergy status; G47.33 Obstructive sleep apnea (adult) (pediatric); Z99.89 Dependence on other enabling machines and devices; Z87.891 Personal history of nicotine dependence; Z80.9 Family history of malignant neoplasm, unspecified; Z82.49 Family history of ischemic heart disease and other diseases of the circulatory system; Z87.01 Personal history of pneumonia (recurrent)
CPT/HCPCS: 99285; 96374; 96361 ×2; 96375; 96376; 36415; 94640; 93005; 85379; 84439; 84481; 83880; 80053; 82150; 82550 ×2; 82553 ×2; 83690; 83735; 84443; 84484 ×2; 85025; 85610; 85730; 71046; G0378 ×2; C8929; J2405; J1885; Q9957; J2274; 93306

== ENCOUNTER 2017-09-19 14:24 | Observation (INO) | payer OTHER ==
[2017-09-19] MEDS ORDERED: NITROGLYCERIN OINT 1 INCH/GM PACKET TOPICAL STA (14:42)
[2017-09-19] MEDS ORDERED: ASPIRIN 81 MG PO STA (14:42)
--- NOTE | 2017-09-19 14:50 | ED ---
General Adult HPI - General Chief complaint: Chest Pain Stated complaint: Chest pressure Time Seen by Provider: 09/19/17 14:25 Source: patient, EMS, RN notes reviewed Mode of arrival: EMS Limitations: no limitations - History of Present Illness Initial comments: This is a 47-year-old female who comes into the emergency department with a past medical history significant for diabetes hypertension high cholesterol and a family history of heart disease. Patient states she had a cardiac cath a few years back but it was normal at that time. Patient states today she started having chest pain at noon it's a squeezing sensation that radiates straight to her back and she is mildly short of breath. Patient denies any diaphoretic episodes. Patient denies any cough patient denies any fever chills per patient denies abdominal pain patient denies any nausea vomiting or diarrhea. Patient denies any headache patient denies any lightheadedness dizziness or near syncopal episode. - Related Data Home Medications Medication Instructions Recorded Confirmed DULoxetine HCL [Cymbalta] 60 mg PO DAILY 04/28/16 09/19/17 metFORMIN HCL ER [Glucophage Xr] 500 mg PO [id number] 04/28/16 09/19/17 Gabapentin [Neurontin] 600 mg PO TID 09/11/16 09/19/17 metFORMIN HCL ER [Glucophage Xr] 1,000 mg PO W/SUPPER 09/11/16 09/19/17 Beclomethasone Dipropionate [Qvar 1 puff INHALATION RT-BID 02/24/17 09/19/17 80 mcg] Magnesium Oxide [Mag-Ox] 400 mg PO HS 02/24/17 09/19/17 Dapagliflozin Propanediol [Farxiga] 10 mg PO DAILY 03/18/17 09/19/17 Albuterol Inhaler [Ventolin Hfa 2 puff INHALATION RT-QID PRN 04/16/17 09/19/17 Inhaler] Montelukast [Singulair] 10 mg PO HS 04/16/17 09/19/17 Atorvastatin Calcium [Lipitor] 20 mg PO HS 05/18/17 09/19/17 Ibuprofen [Motrin] 800 mg PO Q6HR PRN 06/24/17 09/19/17 Losartan Potassium [Cozaar] 25 mg PO HS 06/24/17 09/19/17 Pioglitazone [Actos] 30 mg PO DAILY 09/15/17 09/19/17 Insulin Regular, Human [humulin R 11 unit SQ AC-TID 09/19/17 09/19/17 U-500 Kwikpen] Insulin Regular, Human [humulin R See Protocol SQ AC-TID PRN 09/19/17 09/19/17 U-500 Kwikpen] Previous Rx's Medication Instructions Recorded Aspirin EC [Ecotrin Low Dose] 81 mg PO DAILY #30 tablet. 11/07/16 Cholecalciferol (Vitamin D3) 2,000 unit PO DAILY #30 capsule 09/16/17 [Vitamin D3] Metoprolol Succinate (ER) [Toprol 25 mg PO DAILY #30 tab.er.24h 09/16/17 XL] Allergies Allergy/AdvReac Type Severity Reaction Status Date / Time adhesive Allergy red skin Verified 09/19/17 14:47 Iodinated Contrast- Oral and Allergy Itching Verified 09/19/17 14:47 IV Dye [Iodinated Contrast Media - IV Dye] prednisone Allergy Rapid Verified 09/19/17 14:47 Heart Rate tramadol Allergy Unknown Verified 09/19/17 14:47 verapamil Allergy Anaphylaxis Verified 09/19/17 14:47 celecoxib [From Celebrex] AdvReac CAUSES GI Verified 09/19/17 14:47 BLEEDING cephalexin monohydrate AdvReac Vomiting Verified 09/19/17 14:47 [From Keflex] diphenhydramine AdvReac Itching Verified 09/19/17 14:47 [From Benadryl] hydrocodone AdvReac Nausea & Verified 09/19/17 14:47 Vomiting Penicillins AdvReac Nausea & Verified 09/19/17 14:47 Vomiting Review of Systems ROS Statement: Those systems with pertinent positive or pertinent negative responses have been documented in the HPI. ROS Other: All systems not noted in ROS Statement are negative. Past Medical History Past Medical History: Asthma, CVA/TIA, Diabetes Mellitus, Fibromyalgia, GERD/ Reflux, Hyperlipidemia, Osteoarthritis (OA), Skin Disorder, Sleep Apnea/CPAP/ BIPAP, Thyroid Disorder Additional Past Medical History / Comment(s): hx migraines, TIA 2016-weakness in hands and legs, two bulging disks, degenerative disk disease, neuopathy- upper and lower extremeties, uses walker, psoriasis, nodules on thyroid, bursitis left hip , malfunctioning heart valve, SVT History of Any Multi-Drug Resistant Organisms: None Reported Past Surgical History: Adenoidectomy, Cholecystectomy, EPS, Heart Catheterization, Orthopedic Surgery, Tonsillectomy Additional Past Surgical History / Comment(s): D&C, carpal tunnel surgery left , LT ARM SX FOR "PINCHED NERVE", LT THUMB TRIGGER FINGER, rae neuroma removed left foot, cardiac ablation Past Anesthesia/Blood Transfusion Reactions: Previous Problems w/ Anesthesia, Motion Sickness Additional Past Anesthesia/Blood Transfusion Reaction / Comment(s): difficulty waking from anesthesia Past Psychological History: Anxiety, Depression, Panic Disorder Smoking Status: Former smoker Past Alcohol Use History: Occasional Past Drug Use History: None Reported - Past Family History Father Family Medical History: Cancer Additional Family Medical History / Comment(s): skin Mother Family Medical History: Diabetes Mellitus, Hypertension, Osteoarthritis (OA) Additional Family Medical History / Comment(s): MURMUR Sister(s) Family Medical History: Cancer Additional Family Medical History / Comment(s): ovarian General Exam - General Exam Comments Initial Comments: GENERAL: Patient is well-developed and well-nourished. Patient is nontoxic and well- hydrated and is in mild distress. ENT: Neck is soft and supple. No significant lymphadenopathy is noted. Oropharynx is clear. Moist mucous membranes. Neck has full range of motion without eliciting any pain. EYES: The sclera were anicteric and conjunctiva were pink and moist. Extraocular movements were intact and pupils were equal round and reactive to light. Eyelids were unremarkable. PULMONARY: Unlabored respirations. Good breath sounds bilaterally. No audible rales rhonchi or wheezing was noted. CARDIOVASCULAR: There is a regular rate and rhythm without any murmurs gallops or rubs. ABDOMEN: Soft and nontender with normal bowel sounds. SKIN: Skin is clear with no lesions or rashes and otherwise unremarkable. NEUROLOGIC: Patient is alert and oriented x3. Cranial nerves II through XII are grossly intact. Motor and sensory are also intact. Normal speech, volume and content. Symmetrical smile. MUSCULOSKELETAL: Normal extremities with adequate strength and full range of motion. LYMPHATICS: No significant lymphadenopathy is noted PSYCHIATRIC: Normal psychiatric evaluation. Normal interpersonal interactions appears functionally intact in deals appropriately with others. No signs of depression. No signs of anxiety. Limitations: no limitations Course Vital Signs 09/19/17 09/19/17 14:26 15:25 Temperature 97.6 F Pulse Rate 102 H 101 H Respiratory 20 20 Rate Blood Pressure 139/75 132/68 O2 Sat by Pulse 97 98 Oximetry Medical Decision Making - Medical Decision Making EKG shows sinus tachycardia at 101 bpm PA interval is 142 QRS is 74 QT interval 324 QTC is 420. I compared this EKG with old EKG and there was no acute abnormalities. Chest x-ray shows no acute normalities. Patient's pain continued in the emergency department I started the patient on heparin. I continue the heparin and aspirin and Nitropaste on the floor. I consult cardiology. I wrote admitting orders. I spoke with Dr. Ulloa - Lab Data Result diagrams: 09/19/17 14:38 09/19/17 14:38 Lab Results 09/19/17 09/19/17 09/19/17 Range/Units 14:38 14:38 14:38 WBC 9.2 (3.8-10.6) k/uL RBC 4.62 (3.80-5.40) m/uL Hgb 12.2 (11.4-16.0) gm/dL Hct 38.7 (34.0-46.0) % MCV 83.8 (80.0-100.0) fL MCH 26.5 (25.0-35.0) pg MCHC 31.6 (31.0-37.0) g/dL RDW 16.2 H (11.5-15.5) % Plt Count 224 (150-450) k/uL Neutrophils % 77 % Lymphocytes % 14 % Monocytes % 4 % Eosinophils % 3 % Basophils % 0 % Neutrophils # 7.1 (1.3-7.7) k/uL Lymphocytes # 1.3 (1.0-4.8) k/uL Monocytes # 0.4 (0-1.0) k/uL Eosinophils # 0.3 (0-0.7) k/uL Basophils # 0.0 (0-0.2) k/uL Hypochromasia Slight Anisocytosis Slight PT (9.0-12.0) sec INR (<1.2) APTT (22.0-30.0) sec Sodium 138 (137-145) mmol/L Potassium 5.0 (3.5-5.1) mmol/L Chloride 98 (98-107) mmol/L Carbon Dioxide 30 (22-30) mmol/L Anion Gap 10 mmol/L BUN 24 H (7-17) mg/dL Creatinine 0.85 (0.52-1.04) mg/dL Est GFR (MDRD) Af Amer >60 (>60 ml/min/1.73 sqM) Est GFR (MDRD) Non-Af >60 (>60 ml/min/1.73 sqM) Glucose 263 H (74-99) mg/dL Calcium 9.7 (8.4-10.2) mg/dL Magnesium 1.9 (1.6-2.3) mg/dL Total Bilirubin 0.6 (0.2-1.3) mg/dL AST 23 (14-36) U/L ALT 30 (9-52) U/L Alkaline Phosphatase 100 (38-126) U/L Total Creatine Kinase 51 (30-135) U/L CK-MB (CK-2) 0.4 (0.0-2.4) ng/mL CK-MB (CK-2) Rel Index 0.8 Troponin I <0.012 (0.000-0.034) ng/mL Total Protein 6.9 (6.3-8.2) g/dL Albumin 3.8 (3.5-5.0) g/dL 09/19/17 Range/Units 14:38 WBC (3.8-10.6) k/uL RBC (3.80-5.40) m/uL Hgb (11.4-16.0) gm/dL Hct (34.0-46.0) % MCV (80.0-100.0) fL MCH (25.0-35.0) pg MCHC (31.0-37.0) g/dL RDW (11.5-15.5) % Plt Count (150-450) k/uL Neutrophils % % Lymphocytes % % Monocytes % % Eosinophils % % Basophils % % Neutrophils # (1.3-7.7) k/uL Lymphocytes # (1.0-4.8) k/uL Monocytes # (0-1.0) k/uL Eosinophils # (0-0.7) k/uL Basophils # (0-0.2) k/uL Hypochromasia Anisocytosis PT 10.2 (9.0-12.0) sec INR 1.0 (<1.2) APTT 23.5 (22.0-30.0) sec Sodium (137-145) mmol/L Potassium (3.5-5.1) mmol/L Chloride (98-107) mmol/L Carbon Dioxide (22-30) mmol/L Anion Gap mmol/L BUN (7-17) mg/dL Creatinine (0.52-1.04) mg/dL Est GFR (MDRD) Af Amer (>60 ml/min/1.73 sqM) Est GFR (MDRD) Non-Af (>60 ml/min/1.73 sqM) Glucose (74-99) mg/dL Calcium (8.4-10.2) mg/dL Magnesium (1.6-2.3) mg/dL Total Bilirubin (0.2-1.3) mg/dL AST (14-36) U/L ALT (9-52) U/L Alkaline Phosphatase (38-126) U/L Total Creatine Kinase (30-135) U/L CK-MB (CK-2) (0.0-2.4) ng/mL CK-MB (CK-2) Rel Index Troponin I (0.000-0.034) ng/mL Total Protein (6.3-8.2) g/dL Albumin (3.5-5.0) g/dL Critical Care Time Critical Care Time: Yes Total Critical Care Time: 35 Disposition Clinical Impression: Unstable angina Disposition: ADMITTED IP TO THIS HOSP Referrals: Sd Monsivais MD [Primary Care Provider] - 1-2 days Time of Disposition: 16:31
[2017-09-19 14:52] LABS: Anisocytosis Slight; Basophils % (A) 0 %; Eosinophils # (A) 0.3 k/uL (0-0.7); Eosinophils % (A) 3 %; HCT 38.7 % (34.0-46.0); HGB 12.2 gm/dL (11.4-16.0); Hypochromasia Slight; Lymphocytes # (A) 1.3 k/uL (1.0-4.8); Lymphocytes % (A) 14 %; MCH 26.5 pg (25.0-35.0); MCHC 31.6 g/dL (31.0-37.0); MCV 83.8 fL (80.0-100.0); Mean Platelet Volume 6.8; Monocytes # (A) 0.4 k/uL (0-1.0); Monocytes % (A) 4 %; Neutrophils # (A) 7.1 k/uL (1.3-7.7); Neutrophils % (A) 77 %; Platelet Count 224 k/uL (150-450); RBC 4.62 m/uL (3.80-5.40); RDW 16.2 % (11.5-15.5); WBC 9.2 k/uL (3.8-10.6)
[2017-09-19 15:02] LABS: Partial Thromboplastin Time 23.5 sec (22.0-30.0); Prothrombin Time 10.2 sec (9.0-12.0)
[2017-09-19 15:06] LABS: ALT 30 U/L (9-52); AST 23 U/L (14-36); Albumin 3.8 g/dL (3.5-5.0); Alkaline Phosphatase 100 U/L (38-126); Anion Gap 10 mmol/L; Blood Urea Nitrogen 24 mg/dL (7-17); Calcium 9.7 mg/dL (8.4-10.2); Carbon Dioxide 30 mmol/L (22-30); Chloride 98 mmol/L (98-107); Glucose 263 mg/dL (74-99); Magnesium 1.9 mg/dL (1.6-2.3); Sodium 138 mmol/L (137-145); Total Bilirubin 0.6 mg/dL (0.2-1.3); Total Protein 6.9 g/dL (6.3-8.2)
[2017-09-19 15:17] LABS: Creatine Kinase 51 U/L (30-135)
[2017-09-19 15:30] LABS: Creatine Kinase MB 0.4 ng/mL (0.0-2.4); Troponin I <0.012 ng/mL (0.000-0.034)
--- NOTE | 2017-09-19 15:34 | XR ---
EXAMINATION TYPE: XR chest 2V DATE OF EXAM: 09/19/2017 COMPARISON: September 15, 2017 HISTORY: Chest pain TECHNIQUE: Frontal and lateral views of the chest are obtained. FINDINGS: There is no focal air space opacity, pleural effusion, or pneumothorax seen. The cardiac silhouette size is within normal limits. The osseous structures are intact. IMPRESSION: No acute cardiopulmonary process.
[2017-09-19] MEDS ORDERED: HEPARIN SODIUM,PORCINE 5,000 UNIT/ML 1 ML VIAL IV ONE (16:23)
[2017-09-19] MEDS ORDERED: NITROGLYCERIN SL TABS 0.4 MG TAB SUBLINGUAL PRN (16:25)
[2017-09-19] MEDS ORDERED: HEPARIN SOD,PORK IN 0.45% NACL 25,000 UNIT in 0.45% NACL 1 500ML.BAG IV SCH (16:30)
[2017-09-19 20:09] VITALS: BMI 42.9
[2017-09-19 20:16] LABS: Glucose,Whole Blood 194 mg/dL (75-99)
[2017-09-19] MEDS ORDERED: ALBUTEROL NEBULIZED 2.5 MG/3 ML INHALATION PRN (20:44)
[2017-09-19] MEDS ORDERED: ONDANSETRON 4 MG/2 ML VIAL IVP PRN (20:46)
[2017-09-19] MEDS ORDERED: ACETAMINOPHEN TAB 325 MG TAB PO PRN (20:47)
[2017-09-19] MEDS: MORPHINE SULFATE 2 MG/ML SYRINGE IVP PRN (20:58)
[2017-09-19] MEDS ORDERED: ATORVASTATIN 20 MG TAB PO SCH (21:00)
[2017-09-19] MEDS ORDERED: MONTELUKAST 10 MG TAB PO SCH (21:00)
[2017-09-19] MEDS ORDERED: LOSARTAN 25 MG TAB PO SCH (21:00)
[2017-09-19] MEDS ORDERED: MAGNESIUM OXIDE 400 MG TAB PO SCH (21:00)
[2017-09-19] MEDS: GABAPENTIN 300 MG CAP PO SCH (21:28)
[2017-09-19] MEDS: INSULIN ASPART 100 UNIT/ML 1 ML 10 ML VIAL SQ SCH (21:28)
[2017-09-19 21:37] LABS: Creatine Kinase 36 U/L (30-135)
[2017-09-19 21:49] LABS: Creatine Kinase MB 0.3 ng/mL (0.0-2.4); Troponin I <0.012 ng/mL (0.000-0.034)
[2017-09-20] MEDS: MORPHINE SULFATE 2 MG/ML SYRINGE IVP PRN (00:02)
[2017-09-20 03:22] LABS: Creatine Kinase 33 U/L (30-135)
[2017-09-20 03:34] LABS: Creatine Kinase MB 0.3 ng/mL (0.0-2.4); Troponin I <0.012 ng/mL (0.000-0.034)
[2017-09-20 03:59] LABS: Cholesterol 144 mg/dL (<200); HDL Cholesterol 30 mg/dL (40-60); LDL Cholesterol,Calculated 84 mg/dL (0-99); Triglycerides 150 mg/dL (<150)
[2017-09-20 07:10] LABS: Glucose,Whole Blood 145 mg/dL (75-99)
[2017-09-20 07:19] VITALS: RESP 16
[2017-09-20] MEDS ORDERED: metFORMIN 500 MG TAB PO SCH ×3 (07:30→17:30)
[2017-09-20] MEDS ORDERED: BUDESONIDE 0.5 MG/2 ML NEBU INHALATION SCH (08:00)
[2017-09-20 08:06] VITALS: TEMP 97.7
[2017-09-20] MEDS ORDERED: DAPAGLIFLOZIN PROPANEDIOL 10 MG PO SCH (09:00)
[2017-09-20] MEDS ORDERED: METOPROLOL SUCCINATE (ER) 25 MG TAB.ER.24H PO SCH (09:00)
[2017-09-20] MEDS ORDERED: PIOGLITAZONE 30 MG TAB PO SCH (09:00)
[2017-09-20] MEDS ORDERED: DULoxetine HCL 60 MG CAPSULE.DR PO SCH (09:00)
[2017-09-20] MEDS ORDERED: ASPIRIN 325 MG TAB PO SCH (09:00)
--- NOTE | 2017-09-20 10:43 | CONS ---
CONSULTATION Mrs. Andrade is a 47-year-old female with no prior documented history of coronary artery disease, history of palpitation, but no documented malignant arrhythmia who had multiple admissions to the hospital. Recently was in the hospital with symptoms of chest pain. Her cardiac enzymes at that time as well as her EKG were unremarkable. She had an echocardiogram that showed no evidence of obstructive coronary artery disease. She has underwent cardiac catheterization in the past that revealed no evidence of obstructive coronary artery disease. According to her, pain gets better only with morphine. She is scheduled to be seen by Dr. العراقي but has not seen him yet. According to her, since she left the hospital, she has been having constant pain, not related to any physical activity without any relief. Because of that she came into the emergency room and subsequently admitted. She has complained of palpitation yet on admission, she is in sinus mechanism and there is no evidence of tachy or mac arrhythmia. MEDICATION: Her medications at home include: Metformin, Actos, Singulair, Toprol-XL 25 mg daily, insulin, Cozaar 25 mg daily, Cymbalta, Q-Tania, Lipitor 20 mg daily and aspirin 81 mg daily. REVIEW OF SYSTEMS: Respiratory system: She had dyspnea on exertion. No recent wheezing or cough. GI system: She felt nauseated, but no recent GI bleeding. system: No dysuria, hematuria. Nervous system: No history of seizure. PHYSICAL EXAMINATION: 47-year-old female, morbidly obese, alert, oriented, no apparent distress. Blood pressure 119/70 with a heart rate in the 80s. HEAD: Normocephalic. Eyes sclerae anicteric. Neck good upstroke. No bruit. No jugular venous distention. LUNGS: Clear to auscultation. HEART: Regular rate and rhythm S1, S2. No S3, no rub with a systolic murmur. ABDOMEN: Soft, obese, nontender. EXTREMITIES: No edema. LAB DATA: EKG revealed sinus mechanism with QRS in the inferior leads and poor R-wave progression compared with an EKG that was done earlier this month. There is no changes. Her troponins are less than 0.012. Cholesterol 144, LDL of 84. Hemoglobin of 12.2, BUN and creatinine of 24 and 0.85. IMPRESSION: 1. Chest discomfort, atypical for ischemic heart disease. No evidence to suggest acute coronary syndrome. The patient had multiple admission for similar symptoms in the past and has underwent multiple workup with no evidence of significant abnormalities. 2. Palpitations with no documented malignant arrhythmia. RECOMMENDATION: I will recommend to stop her IV heparin. Continue rest of medical regimen. Increase her activity. She will follow up as an outpatient with Dr. العراقي. Thank you for this consult. We will follow with you. MMODL / IJN: [id number] /
--- NOTE | 2017-09-20 11:07 | P.HPIM ---
History of Present Illness H&P Date: 09/20/17 Chief Complaint: Chest pain HISTORY AND PHYSICAL AND DISCHARGE SUMMARY: This is a 47-year-old female patient of Dr. Monsivais and tower cleaner, Dr. Chang and Dr. العراقي, with a past medical history of atrial tachycardia under the care of Dr. العراقي post cardiac ablation, last heart catheterization 2 years ago. asthma moderate persistent, TIA, diabetes mellitus type 2, fibromyalgia, gastroesophageal reflux disease, hyperlipidemia, osteoarthritis, sleep apnea, migraine headaches, chronic back pain with degenerative disc disease, psoriasis, thyroid nodules. She was recently on the observation unit on September 16 which time she presented with elevated blood pressure and chest pain. She was seen by cardiology with plan to start metoprolol XL 25 mg daily, cleared for discharge and follow-up with Dr. العراقي. Patient states that yesterday she was sitting watching TV and she developed crushing type pain that went to her back and across to chest and into her neck. She needed a bowl of cereal to 3 hours before. She also states she had shortness of breath and it hurt when she took a deep breath. She complained of dizziness. She denies any tenderness. She states right now that she just feels "yukky." Her last heart catheterization was in 2:15 revealed normal coronary arteries with no evidence of ischemia. Patient states she had her last stress test a couple years ago but she got sick from the medicine. She states she has been using her CPAP consistently. She also states her blood sugars have been running high for the last few weeks. Patient has been placed as an observation patient and cardiology consult requested. Troponins have been negative on 3 draws. Triglycerides 150, cholesterol 144, LDL 84, HDL 30. D-dimer was 0.26. On last admission, TSH was 0.656. Chest x-ray shows no acute cardio pulmonary process. Patient has been seen by Dr. Chang for chest discomfort atypical for ischemic heart disease and palpitations with no documented malignant arrhythmia. IV heparin was stopped and patient was cleared for discharge home and follow-up with Dr. العراقي. Review of Systems All systems: negative Constitutional: Denies chills, Denies fever Eyes: denies blurred vision, denies pain Ears, nose, mouth and throat: Denies headache, Denies sore throat, Denies vertigo Cardiovascular: Reports chest pain, Denies edema, Denies leg edema, Denies lightheadedness, Denies shortness of breath, Denies syncope Respiratory: Denies cough Gastrointestinal: Denies abdominal pain, Denies diarrhea, Denies nausea, Denies vomiting Genitourinary: Denies dysuria, Denies hematuria Musculoskeletal: Denies myalgias Integumentary: Denies pruritus, Denies rash Neurological: Denies numbness, Denies weakness Psychiatric: Denies anxiety, Denies depression Endocrine: Denies fatigue, Denies weight change Past Medical History Past Medical History: Asthma, CVA/TIA, Diabetes Mellitus, Fibromyalgia, GERD/ Reflux, Hyperlipidemia, Osteoarthritis (OA), Skin Disorder, Sleep Apnea/CPAP/ BIPAP, Thyroid Disorder Additional Past Medical History / Comment(s): hx migraines, TIA 2015-weakness in hands and legs, two bulging disks, degenerative disk disease, neuopathy- upper and lower extremeties, uses walker, psoriasis, nodules on thyroid, bursitis left hip , malfunctioning heart valve, SVT History of Any Multi-Drug Resistant Organisms: None Reported Past Surgical History: Adenoidectomy, Cholecystectomy, EPS, Heart Catheterization, Orthopedic Surgery, Tonsillectomy Additional Past Surgical History / Comment(s): D&C, carpal tunnel surgery left , LT ARM SX FOR "PINCHED NERVE", LT THUMB TRIGGER FINGER, rae neuroma removed left foot, cardiac ablation Past Anesthesia/Blood Transfusion Reactions: Previous Problems w/ Anesthesia, Motion Sickness Additional Past Anesthesia/Blood Transfusion Reaction / Comment(s): difficulty waking from anesthesia Past Psychological History: Anxiety, Depression, Panic Disorder Additional Psychological History / Comment(s): . Smoking Status: Former smoker Past Alcohol Use History: Occasional Additional Past Alcohol Use History / Comment(s): Patient started smoking at age 13 one half pack per day and quit in the early Past Drug Use History: None Reported Additional Drug Use History / Comment(s): . - Past Family History Father Family Medical History: Cancer Additional Family Medical History / Comment(s): skin Mother Family Medical History: Diabetes Mellitus, Hypertension, Osteoarthritis (OA) Additional Family Medical History / Comment(s): MURMUR Sister(s) Family Medical History: Cancer Additional Family Medical History / Comment(s): ovarian Medications and Allergies Home Medications Medication Instructions Recorded Confirmed Type DULoxetine HCL [Cymbalta] 60 mg PO DAILY 04/28/16 09/19/17 History metFORMIN HCL ER [Glucophage Xr] 500 mg PO AC-BRKFST 04/28/16 09/19/17 History Gabapentin [Neurontin] 600 mg PO TID 09/11/16 09/19/17 History metFORMIN HCL ER [Glucophage Xr] 1,000 mg PO W/SUPPER 09/11/16 09/19/17 History Aspirin EC [Ecotrin Low Dose] 81 mg PO DAILY #30 tablet. 11/07/16 09/19/17 Rx Beclomethasone Dipropionate [Qvar 1 puff INHALATION RT-BID 02/24/17 09/19/17 History 80 mcg] Magnesium Oxide [Mag-Ox] 400 mg PO HS 02/24/17 09/19/17 History Dapagliflozin Propanediol [Farxiga] 10 mg PO DAILY 03/18/17 09/19/17 History Albuterol Inhaler [Ventolin Hfa 2 puff INHALATION RT-QID PRN 04/16/17 09/19/17 History Inhaler] Montelukast [Singulair] 10 mg PO HS 04/16/17 09/19/17 History Atorvastatin Calcium [Lipitor] 20 mg PO HS 05/18/17 09/19/17 History Ibuprofen [Motrin] 800 mg PO Q6HR PRN 06/24/17 09/19/17 History Losartan Potassium [Cozaar] 25 mg PO HS 06/24/17 09/19/17 History Pioglitazone [Actos] 30 mg PO DAILY 09/15/17 09/19/17 History Cholecalciferol (Vitamin D3) 2,000 unit PO DAILY #30 capsule 09/16/17 09/19/17 Rx [Vitamin D3] Metoprolol Succinate (ER) [Toprol 25 mg PO DAILY #30 tab.er.24h 09/16/17 Rx XL] Insulin Regular, Human [NovoLIN R] 11 units SQ AC-TID 09/19/17 09/19/17 History Insulin Regular, Human [humulin R See Protocol SQ AC-TID PRN 09/19/17 09/19/17 History U-500 Kwikpen] Allergies Allergy/AdvReac Type Severity Reaction Status Date / Time adhesive Allergy red skin Verified 09/19/17 14:47 Iodinated Contrast- Oral and Allergy Itching Verified 09/19/17 14:47 IV Dye [Iodinated Contrast Media - IV Dye] prednisone Allergy Rapid Verified 09/19/17 14:47 Heart Rate tramadol Allergy Unknown Verified 09/19/17 14:47 verapamil Allergy Anaphylaxis Verified 09/19/17 14:47 celecoxib [From Celebrex] AdvReac CAUSES GI Verified 09/19/17 14:47 BLEEDING cephalexin monohydrate AdvReac Vomiting Verified 09/19/17 14:47 [From Keflex] diphenhydramine AdvReac Itching Verified 09/19/17 14:47 [From Benadryl] hydrocodone AdvReac Nausea & Verified 09/19/17 14:47 Vomiting Penicillins AdvReac Nausea & Verified 09/19/17 14:47 Vomiting Physical Exam Vitals: Vital Signs Temp Pulse Pulse Resp BP BP Pulse Ox 09/20/17 08:00 97.7 F 87 16 119/71 100 09/20/17 07:28 89 09/20/17 07:18 89 16 99 09/20/17 04:00 97.9 F 90 18 96/51 97 09/19/17 23:27 113 H 18 09/19/17 23:03 104 H 18 128/84 95 09/19/17 20:00 111 H 18 09/19/17 19:51 97.7 F 104 H 18 121/65 96 09/19/17 18:39 97.5 F L 98 16 116/53 96 09/19/17 17:24 89 18 116/58 98 09/19/17 16:41 97 F L 78 18 112/58 09/19/17 15:25 101 H 20 132/68 98 09/19/17 14:26 97.6 F 102 H 20 139/75 97 Intake and Output 09/19/17 09/20/17 09/20/17 22:59 06:59 14:59 Intake Total 162.667 Balance 162.667 Intake: Intake, IV Titration 162.667 Amount Heparin Sod,Pork in 0.45% 162.667 NaCl 25,000 unit In 0.45 % NaCl 1 500ml.bag @ 8. 819 UNITS/KG/HR 20 mls/hr IV .Q24H [facility] Rx#: [id number] Other: Voiding Method Toilet Toilet Toilet # Voids 2 1 Weight 113.398 kg Gen: This is a morbidly obese 47-year-old female. She is resting in bed and appears to be comfortable. HEENT: Head is atraumatic, normocephalic. Pupils equal, round. Sclerae is anicteric. NECK: Short and thick. Supple. No JVD. No lymphadenopathy. No thyromegaly. LUNGS: Clear to auscultation. No wheezes or rhonchi. No intercostal retractions. HEART: Regular rate and rhythm. Systolic murmur. ABDOMEN: Morbidly obese. Soft. Bowel sounds are present. No masses. No tenderness. EXTREMITIES: No pedal edema. No calf tenderness. NEUROLOGICAL: Patient is awake, alert and oriented x3. Cranial nerves 2 through 12 are grossly intact. Results CBC & Chem 7: 09/19/17 14:38 09/19/17 14:38 Labs: Abnormal Lab Results - Last 24 Hours (Table) 09/19/17 09/19/17 09/19/17 Range/Units 14:38 14:38 20:13 RDW 16.2 H (11.5-15.5) % APTT (22.0-30.0) sec BUN 24 H (7-17) mg/dL Glucose 263 H (74-99) mg/dL POC Glucose (mg/dL) 194 H (75-99) mg/dL Triglycerides (<150) mg/dL HDL Cholesterol (40-60) mg/dL 09/19/17 09/20/17 09/20/17 Range/Units 23:42 02:29 06:51 RDW (11.5-15.5) % APTT 30.3 H 39.7 H (22.0-30.0) sec BUN (7-17) mg/dL Glucose (74-99) mg/dL POC Glucose (mg/dL) (75-99) mg/dL Triglycerides 150 H (<150) mg/dL HDL Cholesterol 30 L (40-60) mg/dL 09/20/17 Range/Units 07:06 RDW (11.5-15.5) % APTT (22.0-30.0) sec BUN (7-17) mg/dL Glucose (74-99) mg/dL POC Glucose (mg/dL) 145 H (75-99) mg/dL Triglycerides (<150) mg/dL HDL Cholesterol (40-60) mg/dL Thrombosis Risk Factor Assmnt - Choose All That Apply Each Factor Represents 1 point: Abnormal pulmonary function (COPD), Age 41-60 years, Obesity (BMI >25) Thrombosis Risk Factor Assessment Total Risk Factor Score: 3 Thrombosis Risk Factor Assessment Level: Moderate Risk Assessment and Plan Plan: 1. Atypical chest pain 2. SVT under the care of status post previous ablation. 3. Hypertension 4. Hyperlipidemia 5. Chronic lower back pain and chronic neuropathy from degenerative disc disease and diabetes 6. Obstructive sleep apnea: Has been using CPAP on regular basis. 7. GERD 8. Type 2 diabetes 9. Moderate persistent asthma. Patient placed on the observation unit. Discharge plan: Home Discharge medication list: DULoxetine HCL [Cymbalta] 60 mg PO DAILY 04/28/16 [History] metFORMIN HCL ER [Glucophage Xr] 500 mg PO AC-BRKFST 04/28/16 [History] Gabapentin [Neurontin] 600 mg PO TID 09/11/16 [History] metFORMIN HCL ER [Glucophage Xr] 1,000 mg PO W/SUPPER 09/11/16 [History] Aspirin EC [Ecotrin Low Dose] 81 mg PO DAILY #30 tablet. 11/07/16 [Rx] Beclomethasone Dipropionate [Qvar 80 mcg] 1 puff INHALATION RT-BID 02/24/17 [ History] Magnesium Oxide [Mag-Ox] 400 mg PO HS 02/24/17 [History] Dapagliflozin Propanediol [Farxiga] 10 mg PO DAILY 03/18/17 [History] Albuterol Inhaler [Ventolin Hfa Inhaler] 2 puff INHALATION RT-QID PRN 04/16/17 [ History] Montelukast [Singulair] 10 mg PO HS 04/16/17 [History] Atorvastatin Calcium [Lipitor] 20 mg PO HS 05/18/17 [History] Ibuprofen [Motrin] 800 mg PO Q6HR PRN 06/24/17 [History] Losartan Potassium [Cozaar] 25 mg PO HS 06/24/17 [History] Pioglitazone [Actos] 30 mg PO DAILY 09/15/17 [History] Cholecalciferol (Vitamin D3) [Vitamin D3] 2,000 unit PO DAILY #30 capsule [Rx] Metoprolol Succinate (ER) [Toprol XL] 25 mg PO DAILY #30 tab.er.24h 09/16/17 [Rx ] Insulin Regular, Human [NovoLIN R] 11 units SQ AC-TID 09/19/17 [History] Insulin Regular, Human [humulin R U-500 Kwikpen] See Protocol SQ AC-TID PRN [History] Impression and plan of care have been directed as dictated by the signing physician. Gisselle Kirby nurse practitioner acting as scribe for signing physician.
[2017-09-20] MEDS: GABAPENTIN 300 MG CAP PO SCH (11:21)
[2017-09-20] MEDS: INSULIN REGULAR 100 UNIT/ML VIAL SQ SCH ×2 (11:23→13:43)
[2017-09-20] MEDS: INSULIN ASPART 100 UNIT/ML 1 ML 10 ML VIAL SQ SCH ×2 (11:23→12:58)
[2017-09-20 11:50] LABS: Glucose,Whole Blood 238 mg/dL (75-99)
[2017-09-20] MEDS ORDERED: CHOLECALCIFEROL 1,000 UNIT TAB PO SCH (12:00)
[2017-09-20 12:21] VITALS: BP 92/54; PULSE 97
[2017-09-20 18:43] LABS: Hemoglobin A1C 7.8 % (4.0-6.0)
== END 2017-09-20 13:58 | disposition home or self-care (01) ==
LOC: EC 14:24 → 3SUR 16:30
PROVIDERS: ADMIT Internal Medicine; ATTEND Internal Medicine
DX: R07.89 Other chest pain (principal); I10 Essential (primary) hypertension; E11.40 Type 2 diabetes mellitus with diabetic neuropathy, unspecified; M79.7 Fibromyalgia; K21.9 Gastro-esophageal reflux disease without esophagitis; I47.1 Supraventricular tachycardia; J45.40 Moderate persistent asthma, uncomplicated; G47.33 Obstructive sleep apnea (adult) (pediatric); E78.5 Hyperlipidemia, unspecified; M19.90 Unspecified osteoarthritis, unspecified site; L40.9 Psoriasis, unspecified; F41.0 Panic disorder [episodic paroxysmal anxiety]; F32.9 Major depressive disorder, single episode, unspecified; G43.909 Migraine, unspecified, not intractable, without status migrainosus; E04.2 Nontoxic multinodular goiter; G89.29 Other chronic pain; M54.5 Low back pain; E66.01 Morbid (severe) obesity due to excess calories; J44.9 Chronic obstructive pulmonary disease, unspecified; R00.2 Palpitations; Z82.49 Family history of ischemic heart disease and other diseases of the circulatory system; Z79.899 Other long term (current) drug therapy; Z79.4 Long term (current) use of insulin; Z79.82 Long term (current) use of aspirin; Z88.1 Allergy status to other antibiotic agents; Z91.041 Radiographic dye allergy status; Z88.5 Allergy status to narcotic agent; Z88.0 Allergy status to penicillin; Z88.8 Allergy status to other drugs, medicaments and biological substances; Z91.048 Other nonmedicinal substance allergy status; Z86.73 Personal history of transient ischemic attack (TIA), and cerebral infarction without residual deficits; Z87.891 Personal history of nicotine dependence; Z99.89 Dependence on other enabling machines and devices; Z68.41 Body mass index [BMI] 40.0-44.9, adult
CPT/HCPCS: 96376 ×2; 96366 ×3; 96375; 96365; 99291; 36415; 94640; 93005; 85379; 80061; 80053; 82550 ×2; 82553 ×2; 83735; 84484 ×2; 85025; 85610; 85730 ×2; 83036; 71046; G0378 ×2; J1644 ×2; J2270 ×2

== ENCOUNTER 2017-09-28 09:36 | Day surgery (SDC) | payer OTHER ==
[2017-09-22 13:06] VITALS: BMI 43.9
[~2017-09-28 09:36] MED LIST changes: -IV FLUID CONTINUATION 1,000 ML IV ONE; +LACTATED RINGERS 1,000 ML IV ONE; -LACTATED RINGERS 1,000 ML IV SCH; -LIDOCAINE 1% 20 ML VIAL (10MG/ML) FOR IV START INTRADERMA ONE
[2017-09-28] MEDS ORDERED: LACTATED RINGERS 1,000 ML IV ONE (10:10)
[2017-09-28 10:15] VITALS: RESP 18; TEMP 98
[2017-09-28 10:24] LABS: Glucose,Whole Blood 148 mg/dL (75-99)
[2017-09-28] MEDS ORDERED: LIDOCAINE 1% 20 ML VIAL (10MG/ML) FOR IV START INTRADERMA ONE (10:30)
--- NOTE | 2017-09-28 11:44 | P.PCN ---
Date of Procedure: 09/28/17 Procedure(s) Performed: Pre-operative diagnosis: 1- Bilateral occipital neuralgea Post Operative Diagnosis 1- Bilateral occipital neuralgea Procedure: 1- Bilateral occipital nerve block ANESTHESIA: Moderate sedation with Versed.2 mg . EBL: Minimal PROCEDURE INDICATION: The patient with neck pain and headache secondary to occipital neuralgea unresponsive to conservative treatments. PROCEDURE DESCRIPTION / TECHNIQUE: The patient was seen and identified in the preoperative area. Risks, benefits, complications, and alternatives were discussed with the patient, the patient agreed to proceed with the procedure and signed the consent. IV was started. Vital signs remained stable throughout the procedure. Patient was taken to the OR and time out was completed. The patient was placed in the sitting position on the procedure table. A pillow was placed under the patients chest to increase the cervical interlaminar space. The cervical area and right occiptial area were prepped with alcohol swab. Critical pause was taken. Vital signs were closely monitored during the procedure. Conscious sedation was used during the procedure to decrease patients anxiety. The right occiptal ridge was palpated and was then accessed with a 25 G needle. Then after negative aspiration, 6 ml of the block solution containing 6 ml of PF Buvicaine 0.5% and Kenalog 20 mg was injected. Needle was withdrawn intact. Then the same procedure was repeated on the left side and related the left occipital nerve block, after negative aspiration 6 mL of the block solution containing ropivacaine 0.5% and 20 mg of Kenalog injected after negative aspiration Patient tolerated procedure well. No acute complications.
[2017-09-28] MEDS ORDERED: IV FLUID CONTINUATION 1,000 ML IV ONE (11:48)
[2017-09-28 11:50] VITALS: PULSE 94
[2017-09-28 11:54] LABS: Glucose,Whole Blood 144 mg/dL (75-99)
[2017-09-28 12:11] VITALS: BP 127/74
== END 2017-09-28 12:36 | disposition home or self-care (01) ==
LOC: ORPAIN 09:36
PROVIDERS: ATTEND Specialist
DX: M54.81 Occipital neuralgia (principal)
CPT/HCPCS: 64405; J2250; J3301

== ENCOUNTER → 2017-10-21 | Outpatient (CLI) | payer OTHER ==
[2017-10-21 17:04] LABS: Basophils % (A) 0 %; Eosinophils # (A) 0.2 k/uL (0-0.7); Eosinophils % (A) 2 %; HCT 40.5 % (34.0-46.0); HGB 11.8 gm/dL (11.4-16.0); Hypochromasia Moderate; Lymphocytes % (A) 20 %; MCH 25.5 pg (25.0-35.0); MCHC 29.2 g/dL (31.0-37.0); MCV 87.4 fL (80.0-100.0); Mean Platelet Volume 6.4; Monocytes # (A) 0.5 k/uL (0-1.0); Monocytes % (A) 5 %; Neutrophils # (A) 7.4 k/uL (1.3-7.7); Neutrophils % (A) 72 %; Platelet Count 246 k/uL (150-450); RBC 4.63 m/uL (3.80-5.40); RDW 15.9 % (11.5-15.5); WBC 10.2 k/uL (3.8-10.6)
[2017-10-22 14:52] LABS: Alt. alternata IgE Class CLASS 0; Alternaria alternata IgE <0.35 kU/L (<0.35); Asperg. fumagatus IgE <0.35 kU/L (<0.35); Asperg. fumagatus IgE Class CLASS 0; Bermuda Grass IgE <0.35 kU/L (<0.35); Birch(Com.Silvr) IgE <0.35 kU/L (<0.35); Birch(Com.Silvr) IgE Class CLASS 0; Cat Epith & Dander IgE <0.35 kU/L (<0.35); Cat Epith & Dander IgE Class CLASS 0; Clad herbarum IgE <0.35 kU/L (<0.35); Cockroach IgE <0.35 kU/L (<0.35); Cottonwood IgE <0.35 kU/L (<0.35); Dermato. Pteronyssinus IgE <0.35 kU/L (<0.35); Dermato. farinae IgE <0.35 kU/L (<0.35); Dermato. farinae IgE Class CLASS 0; Dog Dander IgE <0.35 kU/L (<0.35); Elm IgE <0.35 kU/L (<0.35); Maple (Box Elder) IgE <0.35 kU/L (<0.35); Maple (Box Elder) IgE Class CLASS 0; Mountain Cedar IgE <0.35 kU/L (<0.35); Mountain Cedar IgE Class CLASS 0; Mouse Urine IgE Class CLASS 0; Nettle IgE <0.35 kU/L (<0.35); Nettle IgE Class CLASS 0; Oak IgE <0.35 kU/L (<0.35); Penicillium notatum IgE Class CLASS 0; Rough Marshelder IgE <0.35 kU/L (<0.35); Rough Marshelder IgE Class CLASS 0; Timothy Grass IgE <0.35 kU/L (<0.35); White Ash IgE Class CLASS 0
[2017-10-31 01:31] LABS: Alternaria Alternata IgG 2.4 mcg/mL (< 13.6); Aspergillus fumigatus IgG Not detected (Not detected); Aureobasidium pullulans IgG 5.2 mcg/mL (< 13.6); Cladosporium herbarium IgG 6.7 mcg/mL (< 14.7); Phoma ssp. IgG 3.9 mcg/mL (< 6.6); Saccaharomospora viridis Not detected (Not detected); Saccaharopoly. rectivirgula Not detected (Not detected)
== END | disposition home or self-care (01) ==
LOC: LABWHC1 16:26
PROVIDERS: ATTEND Internal Medicine Pulmonary Disease
DX: J45.909 Unspecified asthma, uncomplicated (principal); R05 Cough
CPT/HCPCS: 36415; 82785; 85025; 86001; 86003; 86606; 86609

== ENCOUNTER 2017-10-22 14:47 | Observation (INO) | payer OTHER ==
--- NOTE | 2017-10-22 15:13 | ED ---
Arrhythmia/Palpitations HPI - General Chief Complaint: Arrhythmia/Palpitations Stated Complaint: Palptations Time Seen by Provider: 10/22/17 15:12 Source: patient Mode of arrival: ambulatory - Related Data Home Medications Medication Instructions Recorded Confirmed DULoxetine HCL [Cymbalta] 60 mg PO DAILY 04/28/16 09/22/17 metFORMIN HCL ER [Glucophage Xr] 500 mg PO AC-BRKFST 04/28/16 09/22/17 Gabapentin [Neurontin] 600 mg PO TID 09/11/16 09/22/17 metFORMIN HCL ER [Glucophage Xr] 1,000 mg PO W/SUPPER 09/11/16 09/22/17 Beclomethasone Dipropionate [Qvar 1 puff INHALATION RT-BID 02/24/17 09/22/17 80 mcg] Magnesium Oxide [Mag-Ox] 400 mg PO HS 02/24/17 09/22/17 Dapagliflozin Propanediol [Farxiga] 10 mg PO DAILY 03/18/17 09/22/17 Albuterol Inhaler [Ventolin Hfa 2 puff INHALATION RT-QID PRN 04/16/17 09/22/17 Inhaler] Montelukast [Singulair] 10 mg PO HS 04/16/17 09/22/17 Atorvastatin Calcium [Lipitor] 20 mg PO HS 05/18/17 09/22/17 Ibuprofen [Motrin] 800 mg PO Q6HR PRN 06/24/17 09/22/17 Losartan Potassium [Cozaar] 25 mg PO HS 06/24/17 09/22/17 Pioglitazone [Actos] 30 mg PO DAILY 09/15/17 09/22/17 Insulin Regular, Human [NovoLIN R] 11 units SQ AC-TID 09/19/17 09/22/17 Insulin Regular, Human [humulin R See Protocol SQ AC-TID PRN 09/19/17 09/22/17 U-500 Kwikpen] Previous Rx's Medication Instructions Recorded Aspirin EC [Ecotrin Low Dose] 81 mg PO DAILY #30 tablet. 11/07/16 Cholecalciferol (Vitamin D3) 2,000 unit PO DAILY #30 capsule 09/16/17 [Vitamin D3] Metoprolol Succinate (ER) [Toprol 25 mg PO DAILY #30 tab.er.24h 09/16/17 XL] Allergies Allergy/AdvReac Type Severity Reaction Status Date / Time adhesive Allergy red skin Verified 10/22/17 15:01 Iodinated Contrast- Oral and Allergy Itching Verified 10/22/17 15:01 IV Dye [Iodinated Contrast Media - IV Dye] prednisone Allergy Rapid Verified 10/22/17 15:01 Heart Rate tramadol Allergy Unknown Verified 10/22/17 15:01 verapamil Allergy Anaphylaxis Verified 10/22/17 15:01 celecoxib [From Celebrex] AdvReac CAUSES GI Verified 10/22/17 15:01 BLEEDING cephalexin monohydrate AdvReac Vomiting Verified 10/22/17 15:01 [From Keflex] diphenhydramine AdvReac Itching Verified 10/22/17 15:01 [From Benadryl] hydrocodone AdvReac Nausea & Verified 10/22/17 15:01 Vomiting metoprolol AdvReac Chest Pain Verified 10/22/17 15:01 Penicillins AdvReac Nausea & Verified 10/22/17 15:01 Vomiting Review of Systems ROS Statement: Those systems with pertinent positive or pertinent negative responses have been documented in the HPI. ROS Other: All systems not noted in ROS Statement are negative. Past Medical History Past Medical History: Asthma, CVA/TIA, Diabetes Mellitus, Fibromyalgia, GERD/ Reflux, Hyperlipidemia, Osteoarthritis (OA), Skin Disorder, Sleep Apnea/CPAP/ BIPAP, Thyroid Disorder Additional Past Medical History / Comment(s): hx migraines, TIA 2016-weakness in hands and legs, two bulging disks, degenerative disk disease, neuopathy- upper and lower extremeties, uses walker, psoriasis, nodules on thyroid, bursitis left hip , malfunctioning heart valve, SVT History of Any Multi-Drug Resistant Organisms: None Reported Past Surgical History: Adenoidectomy, Cholecystectomy, EPS, Heart Catheterization, Orthopedic Surgery, Tonsillectomy Additional Past Surgical History / Comment(s): D&C, carpal tunnel surgery left , LT ARM SX FOR "PINCHED NERVE", LT THUMB TRIGGER FINGER, rae neuroma removed left foot, cardiac ablation Past Anesthesia/Blood Transfusion Reactions: Previous Problems w/ Anesthesia, Motion Sickness Additional Past Anesthesia/Blood Transfusion Reaction / Comment(s): difficulty waking from anesthesia Past Psychological History: Anxiety, Depression, Panic Disorder Smoking Status: Never smoker Past Alcohol Use History: Occasional Past Drug Use History: None Reported - Past Family History Father Family Medical History: Cancer Additional Family Medical History / Comment(s): skin Mother Family Medical History: Diabetes Mellitus, Hypertension, Osteoarthritis (OA) Additional Family Medical History / Comment(s): MURMUR Sister(s) Family Medical History: Cancer Additional Family Medical History / Comment(s): ovarian Course Vital Signs 10/22/17 14:55 Temperature 98.8 F Pulse Rate 137 H Respiratory 20 Rate Blood Pressure 138/90 O2 Sat by Pulse 100 Oximetry Medical Decision Making - Medical Decision Making EKG sinus tachycardia, heart rate 128, no ST or T-wave changes appreciated. Disposition Referrals: Sd Monsivais MD [Primary Care Provider] - 1-2 days
[2017-10-22] MEDS ORDERED: SODIUM CHLORIDE 0.9% 1,000 ML IV STA ×2 (15:26)
[2017-10-22] MEDS ORDERED: ASPIRIN 81 MG PO STA (15:26)
--- NOTE | 2017-10-22 15:34 | ED ---
Arrhythmia/Palpitations HPI - General Chief Complaint: Arrhythmia/Palpitations Stated Complaint: Palptations Time Seen by Provider: 10/22/17 15:12 Source: patient, old records reviewed Mode of arrival: ambulatory - History of Present Illness Initial Comments: Patient presents with palpitations. His current problem for patient. States she seen cardiology and electrophysiology in the past, states she has 3 extra spots that trigger her heart to beat too fast. Patient states she's tried rate control medication past however she had adverse effects and therefore is not currently on any. Patient states she is exposed palpitations today since waking up this morning, associated with very mild chest pressure and shortness of breath. Patient states this is the same as previous episodes. Patient denies recent illness, fevers, chills, cough, URI symptoms, nausea, vomiting, abdominal pain. Patient states she had a heart cath 2 years ago that did not show any blockages. She states heart rate was 135 home. She called her primary care's office who told her to come to the ER. She states she tried to wait out symptoms at home, however heart rate did not improve so she came to the ER this afternoon. Denies history of blood clots. Denies tobacco use. MD Complaint: palpitations - Related Data Home Medications Medication Instructions Recorded Confirmed DULoxetine HCL [Cymbalta] 60 mg PO DAILY 04/28/16 10/22/17 metFORMIN HCL ER [Glucophage Xr] 500 mg PO AC-BRKFST 04/28/16 10/22/17 metFORMIN HCL ER [Glucophage Xr] 1,000 mg PO W/SUPPER 09/11/16 10/22/17 Beclomethasone Dipropionate [Qvar 2 puff INHALATION RT-BID 02/24/17 10/22/17 80 mcg] Magnesium Oxide [Mag-Ox] 400 mg PO HS 02/24/17 10/22/17 Dapagliflozin Propanediol [Farxiga] 10 mg PO DAILY 03/18/17 10/22/17 Albuterol Inhaler [Ventolin Hfa 2 puff INHALATION RT-QID PRN 04/16/17 10/22/17 Inhaler] Montelukast [Singulair] 10 mg PO HS 04/16/17 10/22/17 Losartan Potassium [Cozaar] 25 mg PO HS 06/24/17 10/22/17 Pioglitazone [Actos] 30 mg PO DAILY 09/15/17 10/22/17 Insulin Regular, Human [humulin R 8 unit SQ AC-TID 09/19/17 10/22/17 U-500 Kwikpen] Atorvastatin [Lipitor] 20 mg PO HS 10/22/17 10/22/17 Gabapentin 600 mg PO TID 10/22/17 10/22/17 Insulin Regular, Human [humulin R See Protocol SQ ACHS 10/22/17 10/22/17 U-500 Kwikpen] Ipratropium-Albuterol Nebulize 3 ml INHALATION RT-QID 10/22/17 10/22/17 [Duoneb 0.5 mg-3 mg/3 ml Soln] Previous Rx's Medication Instructions Recorded Aspirin EC [Ecotrin Low Dose] 81 mg PO DAILY #30 tablet. 11/07/16 Metoprolol Succinate (ER) [Toprol 25 mg PO DAILY #30 tab.er.24h 09/16/17 XL] Allergies Allergy/AdvReac Type Severity Reaction Status Date / Time adhesive Allergy red skin Verified 10/22/17 15:54 Iodinated Contrast- Oral and Allergy Itching Verified 10/22/17 15:54 IV Dye [Iodinated Contrast Media - IV Dye] prednisone Allergy Rapid Verified 10/22/17 15:54 Heart Rate tramadol Allergy Unknown Verified 10/22/17 15:54 verapamil Allergy Anaphylaxis Verified 10/22/17 15:54 celecoxib [From Celebrex] AdvReac CAUSES GI Verified 10/22/17 15:54 BLEEDING cephalexin monohydrate AdvReac Vomiting Verified 10/22/17 15:54 [From Keflex] diphenhydramine AdvReac Itching Verified 10/22/17 15:54 [From Benadryl] hydrocodone AdvReac Nausea & Verified 10/22/17 15:54 Vomiting metoprolol AdvReac Chest Pain Verified 10/22/17 15:54 Penicillins AdvReac Nausea & Verified 10/22/17 15:54 Vomiting Review of Systems ROS Statement: Those systems with pertinent positive or pertinent negative responses have been documented in the HPI. ROS Other: All systems not noted in ROS Statement are negative. Constitutional: Denies: fever, chills, weakness Eyes: Denies: vision change ENT: Denies: throat pain, congestion Respiratory: Reports: dyspnea. Denies: cough, wheezes, stridor Cardiovascular: Reports: chest pain, palpitations. Denies: dyspnea on exertion , edema, syncope Endocrine: Denies: fatigue, polyuria Gastrointestinal: Denies: abdominal pain, nausea, vomiting, diarrhea, constipation Genitourinary: Denies: dysuria, frequency Musculoskeletal: Denies: back pain Skin: Denies: rash, change in color Neurological: Denies: headache, weakness, numbness, confusion Past Medical History Past Medical History: Asthma, CVA/TIA, Diabetes Mellitus, Fibromyalgia, GERD/ Reflux, Hyperlipidemia, Osteoarthritis (OA), Skin Disorder, Sleep Apnea/CPAP/ BIPAP, Thyroid Disorder Additional Past Medical History / Comment(s): hx migraines, TIA 2016-weakness in hands and legs, two bulging disks, degenerative disk disease, neuopathy- upper and lower extremeties, uses walker, psoriasis, nodules on thyroid, bursitis left hip , malfunctioning heart valve, SVT History of Any Multi-Drug Resistant Organisms: None Reported Past Surgical History: Adenoidectomy, Cholecystectomy, EPS, Heart Catheterization, Orthopedic Surgery, Tonsillectomy Additional Past Surgical History / Comment(s): D&C, carpal tunnel surgery left , LT ARM SX FOR "PINCHED NERVE", LT THUMB TRIGGER FINGER, rae neuroma removed left foot, cardiac ablation Past Anesthesia/Blood Transfusion Reactions: Previous Problems w/ Anesthesia, Motion Sickness Additional Past Anesthesia/Blood Transfusion Reaction / Comment(s): difficulty waking from anesthesia Past Psychological History: Anxiety, Depression, Panic Disorder Smoking Status: Never smoker Past Alcohol Use History: Occasional Past Drug Use History: None Reported - Past Family History Father Family Medical History: Cancer Additional Family Medical History / Comment(s): skin Mother Family Medical History: Diabetes Mellitus, Hypertension, Osteoarthritis (OA) Additional Family Medical History / Comment(s): MURMUR Sister(s) Family Medical History: Cancer Additional Family Medical History / Comment(s): ovarian General Exam - General Exam Comments Initial Comments: Laying on bed. No acute distress. Conversing normally. Calm, pleasant. Obese. Limitations: no limitations General appearance: alert, in no apparent distress Head exam: Present: atraumatic, normocephalic Eye exam: Present: normal appearance, PERRL, EOMI ENT exam: Present: normal exam, mucous membranes moist Neck exam: Present: normal inspection. Absent: thyromegaly Respiratory exam: Present: normal lung sounds bilaterally. Absent: respiratory distress, wheezes, rales, rhonchi, accessory muscle use, decreased breath sounds , prolonged expiratory Cardiovascular Exam: Present: normal rhythm, tachycardia GI/Abdominal exam: Present: soft. Absent: distended, tenderness, guarding, rebound, rigid Extremities exam: Present: normal capillary refill. Absent: pedal edema, joint swelling Neurological exam: Present: alert, oriented X3 Psychiatric exam: Present: normal affect, normal mood. Absent: anxious Skin exam: Present: warm, dry, intact, normal color. Absent: rash, cyanosis Course Vital Signs 10/22/17 10/22/17 14:55 16:53 Temperature 98.8 F Pulse Rate 137 H 116 H Respiratory 20 18 Rate Blood Pressure 138/90 143/91 O2 Sat by Pulse 100 97 Oximetry Medical Decision Making - Medical Decision Making EKG sinus tachycardia heart rate [address] or T-wave changes appreciated. Aspirin given, Zofran given for mild nausea. Troponin negative negative D-dimer negative Patient reevaluated states she continues to have mild left-sided chest pain, remains tachycardic with a heart rate 117, patient with multiple comorbidities and risk factors for coronary artery disease. Plan for cardiac observation and trending troponin. Spoke with , updated with patient condition results, agrees with observation, request consult to cardiology. Patient updated with all results and plan. - Lab Data Result diagrams: 10/22/17 15:30 10/22/17 15:30 Lab Results 10/22/17 10/22/17 10/22/17 Range/Units 15:30 15:30 15:30 WBC 9.6 (3.8-10.6) k/uL RBC 4.66 (3.80-5.40) m/uL Hgb 12.1 (11.4-16.0) gm/dL Hct 39.2 (34.0-46.0) % MCV 84.1 (80.0-100.0) fL MCH 26.0 (25.0-35.0) pg MCHC 31.0 (31.0-37.0) g/dL RDW 15.6 H (11.5-15.5) % Plt Count 241 (150-450) k/uL Neutrophils % 76 % Lymphocytes % 15 % Monocytes % 5 % Eosinophils % 2 % Basophils % 1 % Neutrophils # 7.3 (1.3-7.7) k/uL Lymphocytes # 1.4 (1.0-4.8) k/uL Monocytes # 0.5 (0-1.0) k/uL Eosinophils # 0.2 (0-0.7) k/uL Basophils # 0.1 (0-0.2) k/uL Hypochromasia Slight PT 10.2 (9.0-12.0) sec INR 1.0 (<1.2) APTT 22.9 (22.0-30.0) sec D-Dimer 0.24 (<0.60) mg/L FEU Sodium 140 (137-145) mmol/L Potassium 4.4 (3.5-5.1) mmol/L Chloride 100 (98-107) mmol/L Carbon Dioxide 29 (22-30) mmol/L Anion Gap 11 mmol/L BUN 24 H (7-17) mg/dL Creatinine 1.03 (0.52-1.04) mg/dL Est GFR (MDRD) Af Amer >60 (>60 ml/min/1.73 sqM) Est GFR (MDRD) Non-Af 57 (>60 ml/min/1.73 sqM) Glucose 102 H (74-99) mg/dL Calcium 9.7 (8.4-10.2) mg/dL Magnesium 1.9 (1.6-2.3) mg/dL Total Bilirubin 0.5 (0.2-1.3) mg/dL AST 23 (14-36) U/L ALT 33 (9-52) U/L Alkaline Phosphatase 109 (38-126) U/L Troponin I (0.000-0.034) ng/mL Total Protein 6.8 (6.3-8.2) g/dL Albumin 3.7 (3.5-5.0) g/dL 10/22/17 Range/Units 15:30 WBC (3.8-10.6) k/uL RBC (3.80-5.40) m/uL Hgb (11.4-16.0) gm/dL Hct (34.0-46.0) % MCV (80.0-100.0) fL MCH (25.0-35.0) pg MCHC (31.0-37.0) g/dL RDW (11.5-15.5) % Plt Count (150-450) k/uL Neutrophils % % Lymphocytes % % Monocytes % % Eosinophils % % Basophils % % Neutrophils # (1.3-7.7) k/uL Lymphocytes # (1.0-4.8) k/uL Monocytes # (0-1.0) k/uL Eosinophils # (0-0.7) k/uL Basophils # (0-0.2) k/uL Hypochromasia PT (9.0-12.0) sec INR (<1.2) APTT (22.0-30.0) sec D-Dimer (<0.60) mg/L FEU Sodium (137-145) mmol/L Potassium (3.5-5.1) mmol/L Chloride (98-107) mmol/L Carbon Dioxide (22-30) mmol/L Anion Gap mmol/L BUN (7-17) mg/dL Creatinine (0.52-1.04) mg/dL Est GFR (MDRD) Af Amer (>60 ml/min/1.73 sqM) Est GFR (MDRD) Non-Af (>60 ml/min/1.73 sqM) Glucose (74-99) mg/dL Calcium (8.4-10.2) mg/dL Magnesium (1.6-2.3) mg/dL Total Bilirubin (0.2-1.3) mg/dL AST (14-36) U/L ALT (9-52) U/L Alkaline Phosphatase (38-126) U/L Troponin I <0.012 (0.000-0.034) ng/mL Total Protein (6.3-8.2) g/dL Albumin (3.5-5.0) g/dL Disposition Clinical Impression: Chest pain Disposition: ADMITTED IP TO THIS HOSP Condition: Good Referrals: Sd Monsivais MD [Primary Care Provider] - 1-2 days
[2017-10-22 15:45] LABS: Basophils # (A) 0.1 k/uL (0-0.2); Basophils % (A) 1 %; Eosinophils # (A) 0.2 k/uL (0-0.7); Eosinophils % (A) 2 %; HCT 39.2 % (34.0-46.0); HGB 12.1 gm/dL (11.4-16.0); Hypochromasia Slight; Lymphocytes # (A) 1.4 k/uL (1.0-4.8); Lymphocytes % (A) 15 %; MCV 84.1 fL (80.0-100.0); Mean Platelet Volume 6.7; Monocytes # (A) 0.5 k/uL (0-1.0); Monocytes % (A) 5 %; Neutrophils # (A) 7.3 k/uL (1.3-7.7); Neutrophils % (A) 76 %; Platelet Count 241 k/uL (150-450); RBC 4.66 m/uL (3.80-5.40); RDW 15.6 % (11.5-15.5); WBC 9.6 k/uL (3.8-10.6)
[2017-10-22 15:56] LABS: D-Dimer 0.24 mg/L FEU (<0.60)
[2017-10-22 16:00] LABS: Partial Thromboplastin Time 22.9 sec (22.0-30.0); Prothrombin Time 10.2 sec (9.0-12.0)
[2017-10-22 16:06] LABS: ALT 33 U/L (9-52); AST 23 U/L (14-36); Albumin 3.7 g/dL (3.5-5.0); Alkaline Phosphatase 109 U/L (38-126); Anion Gap 11 mmol/L; Blood Urea Nitrogen 24 mg/dL (7-17); Calcium 9.7 mg/dL (8.4-10.2); Carbon Dioxide 29 mmol/L (22-30); Chloride 100 mmol/L (98-107); Glucose 102 mg/dL (74-99); Magnesium 1.9 mg/dL (1.6-2.3); Potassium 4.4 mmol/L (3.5-5.1); Sodium 140 mmol/L (137-145); Total Bilirubin 0.5 mg/dL (0.2-1.3); Total Protein 6.8 g/dL (6.3-8.2)
[2017-10-22] MEDS ORDERED: ONDANSETRON 4 MG/2 ML VIAL IVP STA (16:37)
--- NOTE | 2017-10-22 16:43 | XR ---
EXAMINATION TYPE: XR chest 2V DATE OF EXAM: 10/22/2017 COMPARISON: Prior chest x-ray 09/19/2017 HISTORY: Chest pain and tachycardia TECHNIQUE: Frontal and lateral views of the chest are obtained. FINDINGS: Patient is rotated. Heart is enlarged. There are overlying cardiac leads. Lung volumes are low. No definite airspace disease, pneumothorax, or pleural effusion. IMPRESSION: Expiratory rotated exam. Suspect cardiomegaly. Follow-up as indicated.
[2017-10-22] MEDS ORDERED: NITROGLYCERIN SL TABS 0.4 MG TAB SUBLINGUAL PRN (17:07)
[2017-10-22 17:38] LABS: Appearance,Urine Clear (Clear); Bacteria,Urine Rare /hpf; Bilirubin,Urine Negative (Negative); Blood,Urine Negative (Negative); Color,Urine Light Yellow; Glucose,Urine (UA) 4+ (Negative); Ketones,Urine Negative (Negative); Leukocyte Esterase,Urine Small (Negative); Nitrite,Urine Negative (Negative); PH, Urine 5.5 (5.0-8.0); Protein,Urine Negative (Negative); RBC,Urine <1 /hpf (0-5); Specific Gravity,Urine 1.008 (1.001-1.035); Squamous Epithelial Cell,Urine <1 /hpf (0-4); Urobilinogen,Urine <2.0 mg/dL (<2.0); WBC,Urine 7 /hpf (0-5)
[2017-10-22] MEDS ORDERED: ALBUTEROL NEBULIZED 2.5 MG/3 ML INHALATION PRN (19:46)
[2017-10-22] MEDS: IPRATROPIUM-ALBUTEROL 3 ML NEB INHALATION SCH (20:54)
[2017-10-22] MEDS ORDERED: ATORVASTATIN 20 MG TAB PO SCH (21:00)
[2017-10-22] MEDS ORDERED: LOSARTAN 25 MG TAB PO SCH (21:00)
[2017-10-22] MEDS ORDERED: MONTELUKAST 10 MG TAB PO SCH (21:00)
[2017-10-22] MEDS ORDERED: MAGNESIUM OXIDE 400 MG TAB PO SCH (21:00)
[2017-10-22 21:25] LABS: Creatine Kinase 32 U/L (30-135)
[2017-10-22 21:36] LABS: Creatine Kinase MB 0.4 ng/mL (0.0-2.4); Troponin I <0.012 ng/mL (0.000-0.034)
[2017-10-22 23:40] LABS: Glucose,Whole Blood 107 mg/dL (75-99)
[2017-10-23] MEDS: GABAPENTIN 300 MG CAP PO SCH ×2 (01:36→10:59)
[2017-10-23] MEDS ORDERED: KETOROLAC 30 MG/ML 1 ML VIAL IVP STA (02:11)
[2017-10-23 03:42] LABS: Cholesterol 125 mg/dL (<200); HDL Cholesterol 40 mg/dL (40-60); LDL Cholesterol,Calculated 68 mg/dL (0-99); Triglycerides 86 mg/dL (<150)
[2017-10-23 04:10] LABS: Creatine Kinase 29 U/L (30-135)
[2017-10-23 04:24] LABS: Creatine Kinase MB 0.4 ng/mL (0.0-2.4); Troponin I <0.012 ng/mL (0.000-0.034)
[2017-10-23 06:55] LABS: Glucose,Whole Blood 106 mg/dL (75-99)
[2017-10-23] MEDS: IPRATROPIUM-ALBUTEROL 3 ML NEB INHALATION SCH ×2 (07:28→11:28)
[2017-10-23] MEDS ORDERED: metFORMIN 500 MG TAB PO SCH (07:30)
[2017-10-23] MEDS ORDERED: BUDESONIDE 1 MG/2 ML NEBU INHALATION SCH (08:00)
[2017-10-23] MEDS ORDERED: METOPROLOL SUCCINATE (ER) 25 MG TAB.ER.24H PO SCH (09:00)
[2017-10-23] MEDS ORDERED: ASPIRIN 325 MG TAB PO SCH (09:00)
[2017-10-23] MEDS ORDERED: PIOGLITAZONE 30 MG TAB PO SCH (09:00)
[2017-10-23] MEDS ORDERED: FARXIGA 10 MG PO SCH (09:00)
[2017-10-23] MEDS ORDERED: DULoxetine HCL 60 MG CAPSULE.DR PO SCH (09:00)
--- NOTE | 2017-10-23 09:49 | CONS ---
CONSULTATION Mrs. Andrade is a 47-year-old female with no prior documented history of coronary artery disease who presented with symptoms of palpitation. She had palpitation on and off in the past and has underwent an EP study by Dr. العراقي and found to have no evidence of malignant arrhythmia. Yesterday, she had palpitations and became more short of breath and dizzy and came into the emergency room. On presentation, she was in sinus tachycardia. The patient has been seen by an electrophysiological physician in [place] and no acute intervention was recommended. The patient has episode of chest discomfort when she has the palpitation. Some of the discomfort is worse when she takes a deep breath. She has some coughing with it. She has no syncope or peripheral edema. No clear PND and no orthopnea. She is on inhalers by Dr. Jimbo Beck. Patient has been tried in the past on verapamil and beta neris and she had itching from them. Her left ventricular systolic function in the past has been normal. Her coronary risk factors are positive for hypertension, hyperlipidemia and diabetes mellitus. She is a nonsmoker. Her medications include insulin, albuterol, metformin, Actos, Singulair, Cozaar 25 mg daily, gabapentin, Cymbalta, Qvar, Lipitor 20 mg daily and aspirin 81 mg daily. REVIEW OF SYSTEMS: RESPIRATORY SYSTEM: She had a cough, the dyspnea on exertion. GI SYSTEM: No recent GI bleeding. No peptic ulcer disease. SYSTEM: No dysuria or hematuria. NERVOUS SYSTEM: No history of seizure. PHYSICAL EXAMINATION: She is a 47-year-old female, alert, oriented, obese, in no apparent distress. Blood pressure 136/80 with a heart rate in the 90s. Afebrile. HEAD: Normocephalic. EYES: Sclerae anicteric. NECK: Good upstroke. No bruit. No jugular venous distention. LUNGS: Clear to auscultation. HEART: Regular rate and rhythm, S1, S2. No S3 with systolic murmur at the base. No diastolic murmur. No rub. ABDOMEN: Soft, obese, nontender. Positive bowel sounds. No organomegaly. EXTREMITIES: No edema. Intact distal pulses. LAB DATA: Lab data revealed a troponin less than 0.012. Cholesterol 125, LDL of 68. BUN and creatinine of 24 and 1.03. Potassium 4.4. Hemoglobin of 12.1. EKG revealed a sinus mechanism, rate of 105, normal axis and intervals. No acute changes. IMPRESSION: 1. Episode of palpitation with evidence sinus tachycardia. The patient had no prior documented history of malignant arrhythmia in the past. 2. Symptoms of chest pain with no evidence of obstructive coronary artery disease. 3. Hypertension. 4. Hyperlipidemia. 5. Diabetes mellitus. 6. Obesity. RECOMMENDATION: From the cardiac standpoint, patient is stable. No cardiac workup is needed at this time. She should be able to be discharged home and follow up with her primary manager investment banking in [place]. Thank you for this consult. MMODL / IJN: [id number] /
[2017-10-23] MEDS: INSULIN ASPART 100 UNIT/ML 1 ML 10 ML VIAL SQ SCH ×2 (10:08→15:51)
[2017-10-23] MEDS: INSULIN REGULAR 100 UNIT/ML VIAL SQ SCH ×2 (10:58→12:48)
[2017-10-23 12:08] LABS: Glucose,Whole Blood 171 mg/dL (75-99)
[2017-10-23 12:25] VITALS: BP 125/77; PULSE 105; RESP 16; TEMP 97.6
--- NOTE | 2017-10-23 14:21 | P.HPIM ---
History of Present Illness H&P Date: 10/22/17 Chief Complaint: chest pain/palpitations. This is a 47-year-old female patient of Dr. Monsivais and sales and service representative, Dr. Chang and Dr. العراقي, with a past medical history of atrial tachycardia under the care of Dr. العراقي post cardiac ablation, last heart catheterization 2 years ago. asthma moderate persistent, TIA, diabetes mellitus type 2, fibromyalgia, gastroesophageal reflux disease, hyperlipidemia, osteoarthritis, sleep apnea, migraine headaches, chronic back pain with degenerative disc disease, psoriasis, thyroid nodules. She was recently on the observation unit on September 16 which time she presented with elevated blood pressure and chest pain. She was seen by cardiology with plan to start metoprolol XL 25 mg daily, cleared for discharge and follow-up with Dr. العراقي however she could not see him till the end of October so she ended-up seeing a sales and service representative at [facility] and she was kept on metoprolol and she was suppose to go for aDCG again and possible ablation for atrial tachycardia but she ended up coming to the ER with chest pain and palpitations and she was admitted for evaluation be cardiology. Review of Systems Constitutional: Reports weight gain, Denies anorexia, Denies chronic headaches, Denies fever, Denies lethargy, Denies weakness Eyes: denies blurred vision, denies bulging eye, denies decreased vision Ears: deny: decreased hearing Ears, nose, mouth and throat: Denies dysphagia, Denies epistaxis, Denies neck lump, Denies swelling in throat, Denies sore throat Cardiovascular: Reports chest pain, Reports decreased exercise tolerance, Reports dyspnea on exertion, Reports high blood pressure, Reports irregular heart beat, Reports palpitations, Reports rapid heart beat, Reports shortness of breath Respiratory: Reports sleep apnea, Reports snoring, Reports wheezing, Denies congestion, Denies cough, Denies cough with sputum, Denies home oxygen Gastrointestinal: Denies abdominal pain, Denies BRBPR, Denies heartburn, Denies melena, Denies nausea, Denies vomiting Genitourinary: Denies dysuria, Denies hematuria Musculoskeletal: Denies myalgias Musculoskeletal: absent: ankle pain, ankle stiffness, ankle swelling, elbow pain , elbow stiffness, elbow swelling, foot pain, foot stiffness, foot swelling, hand pain, hand stiffness, hand swelling, hip pain, hip stiffness, hip swelling , knee pain, knee stiffness, knee swelling, shoulder pain, shoulder stiffness, shoulder swelling, wrist pain, wrist stiffness, wrist swelling Integumentary: Denies pruritus, Denies rash Neurological: Denies numbness, Denies weakness Psychiatric: Denies anxiety, Denies depression Endocrine: Denies fatigue, Denies weight change Past Medical History Past Medical History: Asthma, CVA/TIA, Diabetes Mellitus, Fibromyalgia, GERD/ Reflux, Hyperlipidemia, Osteoarthritis (OA), Skin Disorder, Sleep Apnea/CPAP/ BIPAP, Thyroid Disorder Additional Past Medical History / Comment(s): hx migraines, TIA 2016-weakness in hands and legs, two bulging disks, degenerative disk disease, neuopathy- upper and lower extremeties, uses walker, psoriasis, nodules on thyroid, bursitis left hip , malfunctioning heart valve, SVT History of Any Multi-Drug Resistant Organisms: None Reported Past Surgical History: Adenoidectomy, Cholecystectomy, EPS, Heart Catheterization, Orthopedic Surgery, Tonsillectomy Additional Past Surgical History / Comment(s): D&C, carpal tunnel surgery left , LT ARM SX FOR "PINCHED NERVE", LT THUMB TRIGGER FINGER, rae neuroma removed left foot, cardiac ablation Past Anesthesia/Blood Transfusion Reactions: Previous Problems w/ Anesthesia, Motion Sickness Additional Past Anesthesia/Blood Transfusion Reaction / Comment(s): difficulty waking from anesthesia Past Psychological History: Anxiety, Depression, Panic Disorder Smoking Status: Never smoker Past Alcohol Use History: Occasional Past Drug Use History: None Reported - Past Family History Father Family Medical History: Cancer Additional Family Medical History / Comment(s): skin Mother Family Medical History: Diabetes Mellitus, Hypertension, Osteoarthritis (OA) Additional Family Medical History / Comment(s): MURMUR Sister(s) Family Medical History: Cancer Additional Family Medical History / Comment(s): ovarian Medications and Allergies Home Medications Medication Instructions Recorded Confirmed Type DULoxetine HCL [Cymbalta] 60 mg PO DAILY 04/28/16 10/22/17 History metFORMIN HCL ER [Glucophage Xr] 500 mg PO AC-BRKFST 04/28/16 10/22/17 History metFORMIN HCL ER [Glucophage Xr] 1,000 mg PO W/SUPPER 09/11/16 10/22/17 History Aspirin EC [Ecotrin Low Dose] 81 mg PO DAILY #30 tablet. 11/07/16 10/22/17 Rx Beclomethasone Dipropionate [Qvar 2 puff INHALATION RT-BID 02/24/17 10/22/17 History 80 mcg] Magnesium Oxide [Mag-Ox] 400 mg PO HS 02/24/17 10/22/17 History Dapagliflozin Propanediol [Farxiga] 10 mg PO DAILY 03/18/17 10/22/17 History Albuterol Inhaler [Ventolin Hfa 2 puff INHALATION RT-QID PRN 04/16/17 10/22/17 History Inhaler] Montelukast [Singulair] 10 mg PO HS 04/16/17 10/22/17 History Losartan Potassium [Cozaar] 25 mg PO HS 06/24/17 10/22/17 History Pioglitazone [Actos] 30 mg PO DAILY 09/15/17 10/22/17 History Insulin Regular, Human [humulin R 8 unit SQ AC-TID 09/19/17 10/22/17 History U-500 Kwikpen] Atorvastatin [Lipitor] 20 mg PO HS 10/22/17 10/22/17 History Gabapentin 600 mg PO TID 10/22/17 10/22/17 History Insulin Regular, Human [humulin R See Protocol SQ ACHS 10/22/17 10/22/17 History U-500 Kwikpen] Ipratropium-Albuterol Nebulize 3 ml INHALATION RT-QID 10/22/17 10/22/17 History [Duoneb 0.5 mg-3 mg/3 ml Soln] Allergies Allergy/AdvReac Type Severity Reaction Status Date / Time adhesive Allergy red skin Verified 10/22/17 22:54 Iodinated Contrast- Oral and Allergy Itching Verified 10/22/17 22:54 IV Dye [Iodinated Contrast Media - IV Dye] prednisone Allergy Rapid Verified 10/22/17 22:54 Heart Rate tramadol Allergy Unknown Verified 10/22/17 22:54 verapamil Allergy Anaphylaxis Verified 10/22/17 22:54 celecoxib [From Celebrex] AdvReac CAUSES GI Verified 10/22/17 22:54 BLEEDING cephalexin monohydrate AdvReac Vomiting Verified 10/22/17 22:54 [From Keflex] diphenhydramine AdvReac Itching Verified 10/22/17 22:54 [From Benadryl] hydrocodone AdvReac Nausea & Verified 10/22/17 22:54 Vomiting metoprolol AdvReac Chest Pain Verified 10/22/17 22:54 Penicillins AdvReac Nausea & Verified 10/22/17 22:54 Vomiting Physical Exam Vitals: Vital Signs Temp Pulse Resp BP Pulse Ox 10/22/17 18:44 118 H 20 132/78 98 10/22/17 17:19 97.5 F L 121 H 16 127/78 100 10/22/17 16:53 116 H 18 143/91 97 10/22/17 14:55 98.8 F 137 H 20 138/90 100 Intake and Output 10/22/17 10/22/17 10/22/17 06:59 14:59 22:59 Other: Weight 119.748 kg Patient Weight 10/23/17 06:59 Weight 119.748 kg - Constitutional General appearance: mild distress, obese - EENT Eyes: anicteric sclerae, EOMI, PERRLA, no ptosis, no scleral icterus, normal appearance ENT: hearing grossly normal, NA/AT, normal oropharynx, no thrush Ears: bilateral: normal - Neck Neck: no lymphadenopathy, normal ROM, no rigidity, no stridor, no thyromegaly Carotids: bilateral: upstroke normal Thyroid: bilateral: normal size - Respiratory Respiratory: bilateral: diminished, negative: dullness, rales, rhonchi, wheezing , prolonged expiration - Cardiovascular Rhythm: regular Heart sounds: normal: S1, S2 Abnormal Heart Sounds: systolic murmur - Gastrointestinal General gastrointestinal: normal bowel sounds, soft, no splenomegaly, no tenderness, no umbilical hernia - Integumentary Integumentary: normal, normal turgor - Neurologic Neurologic: CNII-XII intact - Musculoskeletal Musculoskeletal: gait normal, strength equal bilaterally - Psychiatric Psychiatric: A&O x's 3, appropriate affect, intact judgment & insight Results CBC & Chem 7: 10/22/17 15:30 10/22/17 15:30 Labs: Abnormal Lab Results - Last 24 Hours (Table) 10/22/17 10/22/17 10/22/17 Range/Units 15:30 15:30 17:28 RDW 15.6 H (11.5-15.5) % BUN 24 H (7-17) mg/dL Glucose 102 H (74-99) mg/dL Urine Glucose (UA) 4+ H (Negative) Ur Leukocyte Esterase Small H (Negative) Urine WBC 7 H (0-5) /hpf Urine Bacteria Rare H (None) /hpf Thrombosis Risk Factor Assmnt - DVT/VTE Prophylaxis DVT/VTE Prophylaxis: Mechanical Prophylaxis ordered Assessment and Plan Assessment: Assessment and Plan: 1. Atypical chest pain. Patient was seen and evaluated by cardiology and she would be discharged home and follow up with her sales and service representative down at [place] in the next week or so. 2. Sinus tachycardia. Stable at this point in time. She may need to have a Holter monitor placed as an outpatient. 3. Hypertension and hypertensive cardio vascular disease. Continue patient on losartan 25 mg orally once every day. 4. Hyperlipidemia. Continue Lipitor 20 mg orally once every day. 5. Chronic lower back pain and chronic neuropathy from degenerative disc disease and diabete. Continue diet and exercise and weight loss, continue patient on gabapentin 6 or milligram orally 3 times every day, continue patient on Cymbalta 60 mg orally once every day. 6. Obstructive sleep apnea: Has been using CPAP on regular basis. 7. GERD. Continue PPI. 8. Type 2 diabetes. Patient is on multiple regimen including metformin 500 mg orally twice every day, Actos 30 mg orally once every day, and Farxiga 10 mg orally once every day. 9. Moderate persistent asthma. Continue with singular 10 mg orally once every day as well as DuoNeb treatment nebulization 4 times every day. 10. DVT prophylaxis. Early ambulation. 11. GI prophylaxis. Continue PPI. 12. Home tomorrow morning.
--- NOTE | 2017-10-23 14:23 | P.DS ---
Providers Date of admission: 10/22/17 17:07 Attending physician: Carmen Ulloa Consults: 10/22/17 17:07 Consult Physician Routine Consulting Provider: [facility] Consult Reason/Comments: chest pain Do you want consulting provider notified?: Yes Primary care physician: Sd Monsivais [place] [facility] Course: This is a 47-year-old female patient of Dr. Monsivais and director transportation, Dr. Chang and Dr. العراقي, with a past medical history of atrial tachycardia under the care of Dr. العراقي post cardiac ablation, last heart catheterization 2 years ago. asthma moderate persistent, TIA, diabetes mellitus type 2, fibromyalgia, gastroesophageal reflux disease, hyperlipidemia, osteoarthritis, sleep apnea, migraine headaches, chronic back pain with degenerative disc disease, psoriasis, thyroid nodules. She was recently on the observation unit on September 16 which time she presented with elevated blood pressure and chest pain. She was seen by cardiology with plan to start metoprolol XL 25 mg daily, cleared for discharge and follow-up with Dr. العراقي however she could not see him till the end of October so she ended-up seeing a director transportation at [facility] and she was kept on metoprolol and she was suppose to go for aDCG again and possible ablation for atrial tachycardia but she ended up coming to the ER with chest pain and palpitations and she was admitted for evaluation be cardiology. Discharge diagnoses: 1. Chest pain atypical. 2. Sinus tachycardia with possible atrial tachycardia in the past. 3. Hypertension and hypertensive cardiovascular disease. 4. Hyperlipidemia. 5. Diabetes mellitus type 2. 6. Obesity with obstructive sleep apnea. 7. Moderate persistent asthma. 8. Chronic low back pain secondary to degenerative disc disease. 9. History of SVT. 10. Diabetic polyneuropathy. 11. Depression. Patient Condition at Discharge: Good Plan - Discharge Summary New Discharge Prescriptions: No Action DULoxetine HCL [Cymbalta] 60 mg PO DAILY metFORMIN HCL ER [Glucophage Xr] 500 mg PO AC-BRKFST metFORMIN HCL ER [Glucophage Xr] 1,000 mg PO W/SUPPER Aspirin EC [Ecotrin Low Dose] 81 mg PO DAILY #30 tablet. Beclomethasone Dipropionate [Qvar 80 mcg] 2 puff INHALATION RT-BID Magnesium Oxide [Mag-Ox] 400 mg PO HS Dapagliflozin Propanediol [Farxiga] 10 mg PO DAILY Albuterol Inhaler [Ventolin Hfa Inhaler] 2 puff INHALATION RT-QID PRN PRN Reason: Shortness Of Breath Montelukast [Singulair] 10 mg PO HS Losartan Potassium [Cozaar] 25 mg PO HS Pioglitazone [Actos] 30 mg PO DAILY Insulin Regular, Human [humulin R U-500 Kwikpen] 8 unit SQ AC-TID Atorvastatin [Lipitor] 20 mg PO HS Gabapentin 600 mg PO TID Insulin Regular, Human [humulin R U-500 Kwikpen] See Protocol SQ ACHS Ipratropium-Albuterol Nebulize [Duoneb 0.5 mg-3 mg/3 ml Soln] 3 ml INHALATION RT-QID Discharge Medication List DULoxetine HCL [Cymbalta] 60 mg PO DAILY 04/28/16 [History] metFORMIN HCL ER [Glucophage Xr] 500 mg PO AC-BRKFST 04/28/16 [History] metFORMIN HCL ER [Glucophage Xr] 1,000 mg PO W/SUPPER 09/11/16 [History] Aspirin EC [Ecotrin Low Dose] 81 mg PO DAILY #30 tablet. 11/07/16 [Rx] Beclomethasone Dipropionate [Qvar 80 mcg] 2 puff INHALATION RT-BID 02/24/17 [ History] Magnesium Oxide [Mag-Ox] 400 mg PO HS 02/24/17 [History] Dapagliflozin Propanediol [Farxiga] 10 mg PO DAILY 03/18/17 [History] Albuterol Inhaler [Ventolin Hfa Inhaler] 2 puff INHALATION RT-QID PRN 04/16/17 [ History] Montelukast [Singulair] 10 mg PO HS 04/16/17 [History] Losartan Potassium [Cozaar] 25 mg PO HS 06/24/17 [History] Pioglitazone [Actos] 30 mg PO DAILY 09/15/17 [History] Insulin Regular, Human [humulin R U-500 Kwikpen] 8 unit SQ AC-TID 09/19/17 [ History] Atorvastatin [Lipitor] 20 mg PO HS 10/22/17 [History] Gabapentin 600 mg PO TID 10/22/17 [History] Insulin Regular, Human [humulin R U-500 Kwikpen] See Protocol SQ ACHS 10/22/17 [ History] Ipratropium-Albuterol Nebulize [Duoneb 0.5 mg-3 mg/3 ml Soln] 3 ml INHALATION RT -QID 10/22/17 [History] Follow up Appointment(s)/Referral(s): Sd Monsivais MD [Primary Care Provider] - 1-2 days
[2017-10-23 15:35] LABS: Hemoglobin A1C 7.3 % (4.0-6.0)
[2017-10-23] MEDS ORDERED: METFORMIN HCL 1000 MG PO SCH (17:30)
== END 2017-10-23 15:41 | disposition home or self-care (01) ==
LOC: EC 14:47 → 6SEL 17:07 → 3OBS 22:07
PROVIDERS: ADMIT Internal Medicine; ATTEND Internal Medicine
DX: R07.89 Other chest pain (principal); R00.0 Tachycardia, unspecified; I11.9 Hypertensive heart disease without heart failure; J45.40 Moderate persistent asthma, uncomplicated; E78.5 Hyperlipidemia, unspecified; E11.42 Type 2 diabetes mellitus with diabetic polyneuropathy; M79.7 Fibromyalgia; G47.33 Obstructive sleep apnea (adult) (pediatric); K21.9 Gastro-esophageal reflux disease without esophagitis; M19.90 Unspecified osteoarthritis, unspecified site; G89.29 Other chronic pain; M54.5 Low back pain; L40.9 Psoriasis, unspecified; G43.909 Migraine, unspecified, not intractable, without status migrainosus; F41.0 Panic disorder [episodic paroxysmal anxiety]; E04.2 Nontoxic multinodular goiter; F41.9 Anxiety disorder, unspecified; F32.9 Major depressive disorder, single episode, unspecified; Z86.79 Personal history of other diseases of the circulatory system; Z86.73 Personal history of transient ischemic attack (TIA), and cerebral infarction without residual deficits; Z83.3 Family history of diabetes mellitus; Z79.82 Long term (current) use of aspirin; Z79.4 Long term (current) use of insulin; Z79.51 Long term (current) use of inhaled steroids; Z79.899 Other long term (current) drug therapy; Z88.1 Allergy status to other antibiotic agents; Z91.041 Radiographic dye allergy status; Z88.5 Allergy status to narcotic agent; Z88.0 Allergy status to penicillin; Z88.8 Allergy status to other drugs, medicaments and biological substances; Z91.048 Other nonmedicinal substance allergy status; Z82.49 Family history of ischemic heart disease and other diseases of the circulatory system; Z80.41 Family history of malignant neoplasm of ovary; Z80.8 Family history of malignant neoplasm of other organs or systems; Z82.61 Family history of arthritis
CPT/HCPCS: 99285 ×2; 96374 ×2; 96361 ×9; 96375; 36415; 94640 ×3; 94760; 93005; 85379; 80061; 80053; 82550 ×2; 82553 ×2; 83735; 84484 ×2; 85025; 85610; 85730; 81001; 83036; 71046; G0378 ×2; J2405; J1885

== ENCOUNTER 2017-10-26 10:29 | Emergency (ER) | payer OTHER ==
[2017-10-26 11:02] VITALS: TEMP 99.2
--- NOTE | 2017-10-26 11:56 | XR ---
EXAMINATION TYPE: AP view pelvis and 2 views left hip DATE OF EXAM: 10/26/2017 COMPARISON: NONE HISTORY: 47-year-old female left hip pain after fall FINDINGS: Hip joint space is relatively maintained on both sides. SI joints and pubic symphysis appear intact. No acute fracture, subluxation, or dislocation seen. IMPRESSION: No acute osseous abnormality seen.
--- NOTE | 2017-10-26 12:34 | ED ---
General Adult HPI - General Chief complaint: Extremity Injury, Lower Stated complaint: Left leg pain Time Seen by Provider: 10/26/17 11:14 Source: patient, RN notes reviewed Mode of arrival: ambulatory Limitations: no limitations - History of Present Illness Initial comments: Patient's a 47-year-old female who presents emergency room today with a chief complaint of a fall that occurred yesterday. She states she was walking out of the parking lot and tripped over a parking block falling down onto the right knee causing an abrasion. She states that she noticed increased swelling to the left leg today. She denies any specific pain on the side. Admits to some mild discomfort to the left hip. She states she did not remember falling numbness. Denies any head injury or loss consciousness. Patient denies any head injury or loss consciousness. He states that she has been ambulating. Patient denies any recent fever, chills, shortness of breath, chest pain, back pain, abdominal pain, nausea or vomiting, numbness or tingling, headaches or visual changes, or any other complaints. - Related Data Home Medications Medication Instructions Recorded Confirmed DULoxetine HCL [Cymbalta] 60 mg PO DAILY 04/28/16 10/26/17 metFORMIN HCL ER [Glucophage Xr] 500 mg PO AC-BRKFST 04/28/16 10/26/17 metFORMIN HCL ER [Glucophage Xr] 1,000 mg PO W/SUPPER 09/11/16 10/26/17 Beclomethasone Dipropionate [Qvar 2 puff INHALATION RT-BID 02/24/17 10/26/17 80 mcg] Magnesium Oxide [Mag-Ox] 400 mg PO HS 02/24/17 10/26/17 Dapagliflozin Propanediol [Farxiga] 10 mg PO DAILY 03/18/17 10/26/17 Albuterol Inhaler [Ventolin Hfa 2 puff INHALATION RT-QID PRN 04/16/17 10/26/17 Inhaler] Montelukast [Singulair] 10 mg PO HS 04/16/17 10/26/17 Losartan Potassium [Cozaar] 25 mg PO HS 06/24/17 10/26/17 Pioglitazone [Actos] 30 mg PO DAILY 09/15/17 10/26/17 Insulin Regular, Human [humulin R 8 unit SQ AC-TID 09/19/17 10/26/17 U-500 Kwikpen] Atorvastatin [Lipitor] 20 mg PO HS 10/22/17 10/26/17 Gabapentin 600 mg PO TID 10/22/17 10/26/17 Insulin Regular, Human [humulin R See Protocol SQ ACHS 10/22/17 10/26/17 U-500 Kwikpen] Ipratropium-Albuterol Nebulize 3 ml INHALATION RT-QID 10/22/17 10/26/17 [Duoneb 0.5 mg-3 mg/3 ml Soln] Previous Rx's Medication Instructions Recorded Aspirin EC [Ecotrin Low Dose] 81 mg PO DAILY #30 tablet. 11/07/16 Allergies Allergy/AdvReac Type Severity Reaction Status Date / Time adhesive Allergy red skin Verified 10/26/17 11:12 Iodinated Contrast- Oral and Allergy Itching Verified 10/26/17 11:12 IV Dye [Iodinated Contrast Media - IV Dye] prednisone Allergy Rapid Verified 10/26/17 11:12 Heart Rate tramadol Allergy Unknown Verified 10/26/17 11:12 verapamil Allergy Anaphylaxis Verified 10/26/17 11:12 celecoxib [From Celebrex] AdvReac CAUSES GI Verified 10/26/17 11:12 BLEEDING cephalexin monohydrate AdvReac Vomiting Verified 10/26/17 11:12 [From Keflex] diphenhydramine AdvReac Itching Verified 10/26/17 11:12 [From Benadryl] hydrocodone AdvReac Nausea & Verified 10/26/17 11:12 Vomiting metoprolol AdvReac Chest Pain Verified 10/26/17 11:12 Penicillins AdvReac Nausea & Verified 10/26/17 11:12 Vomiting Review of Systems ROS Statement: Those systems with pertinent positive or pertinent negative responses have been documented in the HPI. ROS Other: All systems not noted in ROS Statement are negative. Past Medical History Past Medical History: Asthma, CVA/TIA, Diabetes Mellitus, Fibromyalgia, GERD/ Reflux, Hyperlipidemia, Osteoarthritis (OA), Skin Disorder, Sleep Apnea/CPAP/ BIPAP, Thyroid Disorder Additional Past Medical History / Comment(s): hx migraines, TIA 2016-weakness in hands and legs, two bulging disks, degenerative disk disease, neuopathy- upper and lower extremeties, uses walker, psoriasis, nodules on thyroid, bursitis left hip , malfunctioning heart valve, SVT History of Any Multi-Drug Resistant Organisms: None Reported Past Surgical History: Adenoidectomy, Cholecystectomy, EPS, Heart Catheterization, Orthopedic Surgery, Tonsillectomy Additional Past Surgical History / Comment(s): D&C, carpal tunnel surgery left , LT ARM SX FOR "PINCHED NERVE", LT THUMB TRIGGER FINGER, rae neuroma removed left foot, cardiac ablation Past Anesthesia/Blood Transfusion Reactions: Previous Problems w/ Anesthesia, Motion Sickness Additional Past Anesthesia/Blood Transfusion Reaction / Comment(s): difficulty waking from anesthesia Past Psychological History: Anxiety, Depression, Panic Disorder Smoking Status: Never smoker Past Alcohol Use History: Occasional Past Drug Use History: None Reported - Past Family History Father Family Medical History: Cancer Additional Family Medical History / Comment(s): skin Mother Family Medical History: Diabetes Mellitus, Hypertension, Osteoarthritis (OA) Additional Family Medical History / Comment(s): MURMUR Sister(s) Family Medical History: Cancer Additional Family Medical History / Comment(s): ovarian General Exam - General Exam Comments Initial Comments: General: The patient is awake and alert, in no distress, and does not appear acutely ill. Neck: The neck is supple, there is no tenderness or JVD. Musculoskeletal: Patient does have abrasion over the right anterior knee. No tenderness otherwise. She does have mild tenderness on the lateral aspect of the left hip. Negative logroll maneuver. Patient is able to ambulate. Patient has negative Homans. No tenderness to the left ankle, knee. Sensations are intact pulses equal bilaterally 2+. Neurological: A&O x 3. CN II-XII intact, There are no obvious motor or sensory deficits. Coordination appears grossly intact. Speech is normal. Skin: Skin is warm and dry and no rashes or lesions are noted. Psychiatric: Normal mood and affect. Limitations: no limitations Course Vital Signs 10/26/17 11:00 Temperature 99.2 F Pulse Rate 110 H Respiratory 18 Rate Blood Pressure 143/74 O2 Sat by Pulse 98 Oximetry Medical Decision Making - Medical Decision Making Patient's ultrasound IS NEGATIVE FOR ANY EVIDENCE OF A DVT. X-RAYS HAVE BEEN REVIEWED ARE NEGATIVE FOR ANY FRACTURES DISLOCATIONS. RESULTS WERE DISCUSSED WITH THE PATIENT. SHE IS ADVISED TO CONTINUE TO ELEVATE THE AREA USE ICE TO THE AFFECTED AREA. ADVISED FOLLOW-UP THE FAMILY DOCTOR OVER THE NEXT 2 DAYS RETURN HERE TO EMERGENCY ROOM IF ANY SYMPTOMS INCREASE OR WORSEN. Disposition Clinical Impression: Strain of hip, Abrasion, Left leg swelling Disposition: HOME SELF-CARE Condition: Good Instructions: Contusion in Adults (ED) Additional Instructions: Please continue to elevate the affected area. Please use ice as needed. Please follow-up the family doctor in the next 2 days return here to emergency room if any symptoms increase or worsen or for any other concerns. Referrals: Sd Monsivais MD [Primary Care Provider] - 1-2 days Time of Disposition: 13:15
--- NOTE | 2017-10-26 12:59 | US ---
EXAMINATION TYPE: US venous doppler duplex LE LT DATE OF EXAM: 10/26/2017 12:40 PM COMPARISON: 01/30/2017 CLINICAL HISTORY: 47-year-old female with Pain. SIDE PERFORMED: left TECHNIQUE: The lower extremity deep venous system is examined utilizing real time linear array sonog dain with graded compression, doppler sonography and color-flow sonography. FINDINGS: [employer]PER[employer]OR NOTES: Technically challenging due to large body habitus, abdominal probe used to see Lef t EIV VESSELS IMAGED: External Iliac Vein (EIV) Common Femoral Vein Deep Femoral Vein Greater Saphenous Vein * Femoral Vein Popliteal Vein Small Saphenous Vein * Proximal Calf Veins (* superficial vessels) Left Leg: Negative for DVT IMPRESSION: Technically difficult examination due to patient body habitus. No DVT visualized in the left lower ex tremity from the groin to the upper calf.
[2017-10-26 13:29] VITALS: BP 149/89; PULSE 80; RESP 20
== END 2017-10-26 13:28 | disposition home or self-care (01) ==
LOC: EC 10:29
DX: S76.012A Strain of muscle, fascia and tendon of left hip, initial encounter (principal); S80.211A Abrasion, right knee, initial encounter; M79.89 Other specified soft tissue disorders; E78.5 Hyperlipidemia, unspecified; J45.909 Unspecified asthma, uncomplicated; E11.40 Type 2 diabetes mellitus with diabetic neuropathy, unspecified; G47.30 Sleep apnea, unspecified; F32.9 Major depressive disorder, single episode, unspecified; Z79.51 Long term (current) use of inhaled steroids; Z79.899 Other long term (current) drug therapy; Z88.0 Allergy status to penicillin; Z88.1 Allergy status to other antibiotic agents; Z88.5 Allergy status to narcotic agent; Z88.6 Allergy status to analgesic agent; Z88.8 Allergy status to other drugs, medicaments and biological substances; Z91.041 Radiographic dye allergy status; Z91.09 Other allergy status, other than to drugs and biological substances; Z79.4 Long term (current) use of insulin; Z99.89 Dependence on other enabling machines and devices; Z82.61 Family history of arthritis; W18.09XA Striking against other object with subsequent fall, initial encounter; Y93.01 Activity, walking, marching and hiking; Y92.481 Parking lot as the place of occurrence of the external cause
CPT/HCPCS: 73502; 99283

== ENCOUNTER 2018-01-05 14:08 | Inpatient (IN) | payer OTHER ==
[2018-01-05] MEDS ORDERED: ASPIRIN 81 MG PO STA (14:44)
[2018-01-05] MEDS ORDERED: MORPHINE SULFATE 4 MG/ML SYRINGE IVP STA (14:44)
[2018-01-05] MEDS ORDERED: SODIUM CHLORIDE 0.9% 1,000 ML IV ONE (14:44)
[2018-01-05] MEDS ORDERED: KETOROLAC 30 MG/ML 1 ML VIAL IVP STA (14:44)
[2018-01-05] MEDS ORDERED: RX INFO: IV CONTRAST WAS GIVEN 1 EACH MISC MISCELLANE PRN (14:44)
--- NOTE | 2018-01-05 14:49 | ED ---
Abdominal Pain HPI - General Chief Complaint: Abdominal Pain Stated Complaint: Abd.pain Time Seen by Provider: 01/05/18 14:34 Source: patient Mode of arrival: wheelchair Limitations: no limitations - History of Present Illness Initial Comments: Patient is a 47-year-old female with a medical history of diabetes hypertension , and tachycardia presents with a chief complaint of periumbilical abdominal pain onset 4:00 this morning. Patient states that it woke her from sleep. She states it is a sharp pain. She cannot identify any inciting incidences. There are no aggravating or alleviating factors. Timing is been constant since onset. Patient is to nausea but denies vomiting. She is having some radiation of her pain to her mid back. She is unsure whether or not this is her chronic back pain or new pain today. - Related Data Home Medications Medication Instructions Recorded Confirmed DULoxetine HCL [Cymbalta] 60 mg PO DAILY 04/28/16 01/05/18 Beclomethasone Dipropionate [Qvar 2 puff INHALATION RT-BID 02/24/17 01/05/18 80 mcg] Dapagliflozin Propanediol [Farxiga] 10 mg PO DAILY 03/18/17 01/05/18 Albuterol Inhaler [Ventolin Hfa 2 puff INHALATION RT-QID PRN 04/16/17 01/05/18 Inhaler] Montelukast [Singulair] 10 mg PO HS 04/16/17 01/05/18 Losartan Potassium [Cozaar] 25 mg PO DAILY 06/24/17 01/05/18 Pioglitazone [Actos] 30 mg PO DAILY 09/15/17 01/05/18 Insulin Regular, Human [humulin R 10 unit SQ HS 09/19/17 01/05/18 U-500 Kwikpen] Atorvastatin [Lipitor] 20 mg PO HS 10/22/17 01/05/18 Gabapentin 600 mg PO TID 10/22/17 01/05/18 Insulin Regular, Human [humulin R 35 units SQ QA 10/22/17 01/05/18 U-500 Kwikpen] Ipratropium-Albuterol Nebulize 3 ml INHALATION RT-QID 10/22/17 01/05/18 [Duoneb 0.5 mg-3 mg/3 ml Soln] busPIRone HCl [Buspar] 5 mg PO BID 01/05/18 01/05/18 metFORMIN HCL [Glucophage] 1,000 mg PO AC-SUPPER 01/05/18 01/05/18 metFORMIN HCL [Glucophage] 500 mg PO AC-BID 01/05/18 01/05/18 Previous Rx's Medication Instructions Recorded Aspirin EC [Ecotrin Low Dose] 81 mg PO DAILY #30 tablet. 11/07/16 Allergies Allergy/AdvReac Type Severity Reaction Status Date / Time adhesive Allergy red skin Verified 01/05/18 15:09 Iodinated Contrast- Oral and Allergy Itching Verified 01/05/18 15:09 IV Dye [Iodinated Contrast Media - IV Dye] prednisone Allergy Rapid Verified 01/05/18 15:09 Heart Rate tramadol Allergy Unknown Verified 01/05/18 15:09 verapamil Allergy Anaphylaxis Verified 01/05/18 15:09 celecoxib [From Celebrex] AdvReac CAUSES GI Verified 01/05/18 15:09 BLEEDING cephalexin monohydrate AdvReac Vomiting Verified 01/05/18 15:09 [From Keflex] diphenhydramine AdvReac Itching Verified 01/05/18 15:09 [From Benadryl] hydrocodone AdvReac Nausea & Verified 01/05/18 15:09 Vomiting metoprolol AdvReac Chest Pain Verified 01/05/18 15:09 Penicillins AdvReac Nausea & Verified 01/05/18 15:09 Vomiting Review of Systems ROS Statement: Those systems with pertinent positive or pertinent negative responses have been documented in the HPI. ROS Other: All systems not noted in ROS Statement are negative. Gastrointestinal: Reports: abdominal pain, nausea. Denies: vomiting Musculoskeletal: Reports: back pain Past Medical History Past Medical History: Asthma, CVA/TIA, Diabetes Mellitus, Fibromyalgia, GERD/ Reflux, Hyperlipidemia, Osteoarthritis (OA), Skin Disorder, Sleep Apnea/CPAP/ BIPAP, Thyroid Disorder Additional Past Medical History / Comment(s): hx migraines, TIA 2016-weakness in hands and legs, two bulging disks, degenerative disk disease, neuopathy- upper and lower extremeties, uses walker, psoriasis, nodules on thyroid, bursitis left hip , malfunctioning heart valve, SVT History of Any Multi-Drug Resistant Organisms: None Reported Past Surgical History: Adenoidectomy, Cholecystectomy, EPS, Heart Catheterization, Orthopedic Surgery, Tonsillectomy Additional Past Surgical History / Comment(s): D&C, carpal tunnel surgery left , LT ARM SX FOR "PINCHED NERVE", LT THUMB TRIGGER FINGER, rae neuroma removed left foot, cardiac ablation Past Anesthesia/Blood Transfusion Reactions: Previous Problems w/ Anesthesia, Motion Sickness Additional Past Anesthesia/Blood Transfusion Reaction / Comment(s): difficulty waking from anesthesia Past Psychological History: Anxiety, Depression, Panic Disorder Smoking Status: Never smoker Past Alcohol Use History: Occasional Past Drug Use History: None Reported - Past Family History Father Family Medical History: Cancer Additional Family Medical History / Comment(s): skin Mother Family Medical History: Diabetes Mellitus, Hypertension, Osteoarthritis (OA) Additional Family Medical History / Comment(s): MURMUR Sister(s) Family Medical History: Cancer Additional Family Medical History / Comment(s): ovarian General Exam Limitations: no limitations General appearance: alert, in no apparent distress Head exam: Present: atraumatic, normocephalic Eye exam: Present: normal appearance ENT exam: Present: normal exam, mucous membranes moist Neck exam: Present: normal inspection Respiratory exam: Present: normal lung sounds bilaterally. Absent: respiratory distress Cardiovascular Exam: Present: normal rhythm, tachycardia GI/Abdominal exam: Present: soft, tenderness (Patient has tenderness to palpation in the periumbilical region, and the right lower quadrant.) Rectal exam: Present: deferred Extremities exam: Present: normal inspection Back exam: Present: normal inspection. Absent: CVA tenderness (R), CVA tenderness (L) Neurological exam: Present: alert, oriented X3 Psychiatric exam: Present: normal affect, normal mood Skin exam: Present: warm, dry, intact Course Vital Signs 01/05/18 01/05/18 01/05/18 14:25 15:32 16:17 Temperature 98.0 F Pulse Rate 113 H 112 H 100 Respiratory 20 20 18 Rate Blood Pressure 116/82 156/87 110/57 O2 Sat by Pulse 97 99 98 Oximetry 01/05/18 17:00 Temperature Pulse Rate 103 H Respiratory 18 Rate Blood Pressure 98/57 O2 Sat by Pulse 97 Oximetry Medical Decision Making - Medical Decision Making Patient presents with chief complaint of abdominal pain. On initial evaluation , vital signs show tachycardia but otherwise stable. Vision is mildly distressed secondary to pain. She will be evaluated with basic cardiac labs, computed tomography scan of the chest abdomen and pelvis, and EKG. EKG performed at 1519 shows sinus tachycardia with a rate of 1 13 bpm. EKG is otherwise unremarkable. When compared to previous study performed on 2017 EKGs are similar in waveform. 3:10 PM Received a call from CAT scan stating that the patient needed to be premedicated per hospital protocol prior to her scan with contrast. I discussed patient's adverse reaction, she states that she has localized itching at the injection site of contrast. I discussed premedication with Solu-Medrol, Benadryl, Pepcid, the patient is agreeable at this time. 5:15 PM E evaluation of this patient is unremarkable except for a mild leukocytosis of 11,000. Computed tomography scan of the abdomen and pelvis shows a small hiatal hernia with evidence of small bowel obstruction. I reevaluation, patient states that she feels mildly improved but is still having pain and nausea. This case was discussed with Dr. Fowler who accepts admission. Patient will have placement of an NG tube, and admitted with pain and nausea control. - Lab Data Result diagrams: 01/05/18 14:53 01/05/18 14:53 Lab Results 01/05/18 01/05/18 01/05/18 Range/Units 14:53 14:53 14:53 WBC 11.3 H (3.8-10.6) k/uL RBC 4.86 (3.80-5.40) m/uL Hgb 12.2 (11.4-16.0) gm/dL Hct 38.1 (34.0-46.0) % MCV 78.4 L (80.0-100.0) fL MCH 25.1 (25.0-35.0) pg MCHC 32.0 (31.0-37.0) g/dL RDW 15.9 H (11.5-15.5) % Plt Count 262 (150-450) k/uL Neutrophils % 81 % Lymphocytes % 12 % Monocytes % 4 % Eosinophils % 2 % Basophils % 0 % Neutrophils # 9.1 H (1.3-7.7) k/uL Lymphocytes # 1.4 (1.0-4.8) k/uL Monocytes # 0.4 (0-1.0) k/uL Eosinophils # 0.2 (0-0.7) k/uL Basophils # 0.0 (0-0.2) k/uL Hypochromasia Slight Microcytosis Slight Sodium 142 (137-145) mmol/L Potassium 4.1 (3.5-5.1) mmol/L Chloride 101 (98-107) mmol/L Carbon Dioxide 25 (22-30) mmol/L Anion Gap 16 mmol/L BUN 17 (7-17) mg/dL Creatinine 0.79 (0.52-1.04) mg/dL Est GFR (CKD-EPI)AfAm >90 (>60 ml/min/1.73 sqM) Est GFR (CKD-EPI)NonAf 89 (>60 ml/min/1.73 sqM) Glucose 243 H (74-99) mg/dL Calcium 10.1 (8.4-10.2) mg/dL Total Bilirubin 0.5 (0.2-1.3) mg/dL AST 18 (14-36) U/L ALT 18 (9-52) U/L Alkaline Phosphatase 98 (38-126) U/L Troponin I <0.012 (0.000-0.034) ng/mL NT-Pro-B Natriuret Pep pg/mL Total Protein 6.4 (6.3-8.2) g/dL Albumin 3.8 (3.5-5.0) g/dL Lipase 206 (23-300) U/L 01/05/18 Range/Units 14:53 WBC (3.8-10.6) k/uL RBC (3.80-5.40) m/uL Hgb (11.4-16.0) gm/dL Hct (34.0-46.0) % MCV (80.0-100.0) fL MCH (25.0-35.0) pg MCHC (31.0-37.0) g/dL RDW (11.5-15.5) % Plt Count (150-450) k/uL Neutrophils % % Lymphocytes % % Monocytes % % Eosinophils % % Basophils % % Neutrophils # (1.3-7.7) k/uL Lymphocytes # (1.0-4.8) k/uL Monocytes # (0-1.0) k/uL Eosinophils # (0-0.7) k/uL Basophils # (0-0.2) k/uL Hypochromasia Microcytosis Sodium (137-145) mmol/L Potassium (3.5-5.1) mmol/L Chloride (98-107) mmol/L Carbon Dioxide (22-30) mmol/L Anion Gap mmol/L BUN (7-17) mg/dL Creatinine (0.52-1.04) mg/dL Est GFR (CKD-EPI)AfAm (>60 ml/min/1.73 sqM) Est GFR (CKD-EPI)NonAf (>60 ml/min/1.73 sqM) Glucose (74-99) mg/dL Calcium (8.4-10.2) mg/dL Total Bilirubin (0.2-1.3) mg/dL AST (14-36) U/L ALT (9-52) U/L Alkaline Phosphatase (38-126) U/L Troponin I (0.000-0.034) ng/mL NT-Pro-B Natriuret Pep 44 pg/mL Total Protein (6.3-8.2) g/dL Albumin (3.5-5.0) g/dL Lipase (23-300) U/L Disposition Clinical Impression: Small bowel obstruction Disposition: ADMITTED IP TO THIS HOSP Condition: Good Is patient prescribed a controlled substance at d/c from ED?: No Referrals: Sd Monsivais MD [Primary Care Provider] - 1-2 days - Out of Hospital Transfer - Req. Specs Out of Hospital Transfer - Requested Specifics: Other Non-Acute
[2018-01-05] MEDS ORDERED: FAMOTIDINE 20 MG/2 ML VIAL IV STA (15:02)
[2018-01-05] MEDS ORDERED: methylPREDNISolone SOD SUCCI 125 MG/2 ML VIAL IV STA (15:02)
[2018-01-05] MEDS ORDERED: diphenhydrAMINE 50 MG/ML 1 ML VIAL IVP STA (15:02)
[2018-01-05 15:12] LABS: Basophils % (A) 0 %; Eosinophils # (A) 0.2 k/uL (0-0.7); Eosinophils % (A) 2 %; HCT 38.1 % (34.0-46.0); HGB 12.2 gm/dL (11.4-16.0); Hypochromasia Slight; Lymphocytes # (A) 1.4 k/uL (1.0-4.8); Lymphocytes % (A) 12 %; MCH 25.1 pg (25.0-35.0); MCV 78.4 fL (80.0-100.0); Mean Platelet Volume 7.2; Microcytosis Slight; Monocytes # (A) 0.4 k/uL (0-1.0); Monocytes % (A) 4 %; Neutrophils # (A) 9.1 k/uL (1.3-7.7); Neutrophils % (A) 81 %; Platelet Count 262 k/uL (150-450); RBC 4.86 m/uL (3.80-5.40); RDW 15.9 % (11.5-15.5); WBC 11.3 k/uL (3.8-10.6)
[2018-01-05 15:19] LABS: ALT 18 U/L (9-52); AST 18 U/L (14-36); Albumin 3.8 g/dL (3.5-5.0); Alkaline Phosphatase 98 U/L (38-126); Anion Gap 16 mmol/L; Blood Urea Nitrogen 17 mg/dL (7-17); Calcium 10.1 mg/dL (8.4-10.2); Carbon Dioxide 25 mmol/L (22-30); Chloride 101 mmol/L (98-107); Glucose 243 mg/dL (74-99); Lipase 206 U/L (23-300); Potassium 4.1 mmol/L (3.5-5.1); Sodium 142 mmol/L (137-145); Total Bilirubin 0.5 mg/dL (0.2-1.3); Total Protein 6.4 g/dL (6.3-8.2)
--- NOTE | 2018-01-05 16:48 | CT ---
EXAMINATION TYPE: CT angio thoracic/abd aorta DATE OF EXAM: 01/05/2018 COMPARISON: 11/06/2016 HISTORY: 47 year-old female abdominal pain, nausea and diarrhea TECHNIQUE: Contiguous axial scanning of the chest and abdomen performed without and with IV Contrast, patient injected with 100ml mL of Isovue 370. Coronal/sagittal MIP reconstructions performed. 3-D re constructions generated on a dedicated independent workstation. CT DLP: 2196.3 mGycm Automated exposure control for dose reduction was used. FINDINGS: Chest: Heart is upper limits of normal in size without pericardial effusion. Motion artifacts along the aortic root and ascending aorta. Initial noncontrast series show no eviden ce for acute intracranial hematoma. Ascending aorta is borderline ectatic and 3.5 cm. Is bovine confi guration to the aortic arch without convincing findings of dissection. 2 cm hypodense nodule of the left thyroid gland redemonstrated. Recommend further assessment with thy roid ultrasound if not artery performed. No thoracic lymphadenopathy. Evaluation of the lungs show strandy lingular atelectasis. No consolidation or pleural effusion. ABDOMEN: Tiny hiatal hernia. Arterial phase imaging of the liver, adrenal glands, kidneys, spleen, and pancreas show no gross abno rmality. Borderline dilated small bowel loops in the left abdomen measuring up to 3.0 cm with prominent fluid. Additional fluid-filled small bowel loops in the right abdomen. Mild overall stool burden. No discre te transition point is seen. Prominent left-sided mesenteric lymph nodes measure up to 8 mm. Some prominent retroperitoneal lymph nodes measuring up to 8 mm are unchanged from 11/06/2016. Stable subcutaneous edema anteriorly but also dependently along the back. Mild discoid calcifications infrarenal abdominal aorta and iliac arteries. No evidence for aneurysm. Celiac axis, SMA, bilateral single renal arteries as well as the COLLEEN are patent. No evidence for AAA. Bones: No osseous destructive process. IMPRESSION: 1. PROMINENT MOTION ARTIFACT AT THE AORTIC ROOT AND ASCENDING AORTA LIMITING ASSESSMENT. FINDINGS ARE FAVORED TO REFLECT MOTION ARTIFACTS RATHER THAN ACUTE AORTIC INJURY. FOLLOW-UP CLINICALLY INDICAT ED. 2. NO EVIDENCE FOR AORTIC ANEURYSM. 3. 2 CM LEFT THYROID NODULE, STABLE FROM 11/06/2016. THYROID ULTRASOUND CAN FURTHER EVALUATE. 4. BORDERLINE DISTENDED, FLUID-FILLED SMALL BOWEL LOOPS IN THE LEFT ABDOMEN AND TO A LESSER DEGREE IN THE RIGHT ABDOMEN. BORDERLINE SIZED MESENTERIC LYMPH NODES ARE ALSO PRESENT, LIKELY REACTIVE. CORREL ATE FOR ENTERITIS.
[2018-01-05] MEDS ORDERED: NALOXONE 0.4 MG/ML 1 ML VIAL IV PRN (17:13)
--- NOTE | 2018-01-05 18:26 | XR ---
EXAMINATION TYPE: XR KUB portable DATE OF EXAM: 01/05/2018 COMPARISON: NONE HISTORY: Pain TECHNIQUE: Single supine KUB image of the abdomen is obtained. Entire abdomen is not included on the examination. FINDINGS: NG tube is seen coursing into the stomach. No obvious free air. Bowel gas pattern is nonspecific. IMPRESSION: 1. NG tube as noted.
[2018-01-05] MEDS: MORPHINE SULFATE 4 MG/ML SYRINGE IV PRN (20:26)
[2018-01-05 20:32] LABS: Glucose,Whole Blood 177 mg/dL (75-99)
[2018-01-05] MEDS: INSULIN ASPART 100 UNIT/ML 1 ML 10 ML VIAL SQ SCH (21:16)
[2018-01-06] MEDS: MORPHINE SULFATE 4 MG/ML SYRINGE IV PRN ×2 (05:47→10:27)
[2018-01-06 07:20] LABS: Glucose,Whole Blood 166 mg/dL (75-99)
[2018-01-06 07:41] LABS: Basophils % (A) 0 %; Eosinophils # (A) 0.1 k/uL (0-0.7); Eosinophils % (A) 1 %; HCT 40.9 % (34.0-46.0); HGB 12.5 gm/dL (11.4-16.0); Hypochromasia Moderate; Lymphocytes # (A) 0.6 k/uL (1.0-4.8); Lymphocytes % (A) 5 %; MCH 24.7 pg (25.0-35.0); MCHC 30.6 g/dL (31.0-37.0); MCV 80.7 fL (80.0-100.0); Monocytes # (A) 0.2 k/uL (0-1.0); Monocytes % (A) 1 %; Neutrophils # (A) 12.1 k/uL (1.3-7.7); Neutrophils % (A) 93 %; Platelet Count 251 k/uL (150-450); RBC 5.06 m/uL (3.80-5.40); RDW 15.8 % (11.5-15.5)
[2018-01-06] MEDS: INSULIN ASPART 100 UNIT/ML 1 ML 10 ML VIAL SQ SCH ×6 (07:51→21:44)
[2018-01-06 08:05] LABS: ALT 19 U/L (9-52); AST 16 U/L (14-36); Albumin 3.8 g/dL (3.5-5.0); Alkaline Phosphatase 106 U/L (38-126); Anion Gap 16 mmol/L; Blood Urea Nitrogen 20 mg/dL (7-17); Calcium 9.6 mg/dL (8.4-10.2); Carbon Dioxide 27 mmol/L (22-30); Chloride 103 mmol/L (98-107); Glucose 173 mg/dL (74-99); Lipase 54 U/L (23-300); Potassium 4.7 mmol/L (3.5-5.1); Sodium 146 mmol/L (137-145); Total Bilirubin 0.5 mg/dL (0.2-1.3); Total Protein 6.9 g/dL (6.3-8.2)
[2018-01-06] MEDS ORDERED: BARIUM SULFATE 450 ML ORAL.SUSP BOTTLE PO PRN (08:08)
[2018-01-06] MEDS: SODIUM CHLORIDE 0.9% 1,000 ML IV SCH (10:28)
[2018-01-06 11:45] LABS: Glucose,Whole Blood 143 mg/dL (75-99)
[2018-01-06 12:02] LABS: Hemoglobin A1C 6.5 % (4.0-6.0)
[2018-01-06] MEDS: ONDANSETRON 4 MG/2 ML VIAL IVP PRN ×2 (14:26→21:58)
[2018-01-06] MEDS ORDERED: LORazepam 2 MG/ML INJ IV STA (14:31)
[2018-01-06] MEDS ORDERED: LORazepam 2 MG/ML INJ IV PRN (14:32)
--- NOTE | 2018-01-06 15:38 | P.GSHP ---
History of Present Illness H&P Date: 01/06/18 47-year-old female presented on the day of admission to the emergency room after developing a sudden onset of sharp stabbing pain in the. Umbilical abdominal region. Patient stated the pain was so sharp it woke her up from sleep. Patient denied any prior episodes when questioning. Patient states she felt nauseated but could not vomit. Patient stated the pain did radiate to her middle back. Patient stated that there was nothing that seemed to make the pain worse or better. Came into the emergency room for the above-mentioned symptoms because the pain was unbearable. In the emergency room patient was afebrile tachycardic mild leukocytosis noted white count 11. In the emergency room computed tomography scan showed a small hiatal hernia with evidence of a small bowel obstruction. Patient was admitted to the services of the attending. Nasal gastric tube was placed. A computed tomography scan with oral contrast was ordered. Patient did become nauseated did vomit contrast. States the abdominal pain is slightly improved - Review of Systems Comment: Essentially unremarkable except as mentioned in the present illness Past Medical History Past Medical History: Asthma, Chest Pain / Angina, CVA/TIA, Diabetes Mellitus, Fibromyalgia, GERD/Reflux, Hyperlipidemia, Osteoarthritis (OA), Skin Disorder, Sleep Apnea/CPAP/BIPAP, Thyroid Disorder Additional Past Medical History / Comment(s): hx migraines, TIA 2015-weakness in hands and legs, two bulging disks, degenerative disk disease, neuopathy- upper and lower extremeties, uses walker, psoriasis, nodules on thyroid, bursitis left hip , malfunctioning heart valve, SVT History of Any Multi-Drug Resistant Organisms: None Reported Past Surgical History: Adenoidectomy, Cholecystectomy, EPS, Heart Catheterization, Orthopedic Surgery, Tonsillectomy Additional Past Surgical History / Comment(s): D&C, carpal tunnel surgery left , LT ARM SX FOR "PINCHED NERVE", LT THUMB TRIGGER FINGER, rae neuroma removed left foot, cardiac ablation Past Anesthesia/Blood Transfusion Reactions: Previous Problems w/ Anesthesia, Motion Sickness Additional Past Anesthesia/Blood Transfusion Reaction / Comment(s): difficulty waking from anesthesia Smoking Status: Former smoker - Past Family History Father Family Medical History: Cancer Additional Family Medical History / Comment(s): skin Mother Family Medical History: Diabetes Mellitus, Hypertension, Osteoarthritis (OA) Additional Family Medical History / Comment(s): MURMUR Sister(s) Family Medical History: Cancer Additional Family Medical History / Comment(s): ovarian Medications and Allergies Home Medications Medication Instructions Recorded Confirmed Type DULoxetine HCL [Cymbalta] 60 mg PO DAILY 04/28/16 01/05/18 History Aspirin EC [Ecotrin Low Dose] 81 mg PO DAILY #30 tablet. 11/07/16 01/05/18 Rx Beclomethasone Dipropionate [Qvar 2 puff INHALATION RT-BID 02/24/17 01/05/18 History 80 mcg] Dapagliflozin Propanediol [Farxiga] 10 mg PO DAILY 03/18/17 01/05/18 History Albuterol Inhaler [Ventolin Hfa 2 puff INHALATION RT-QID PRN 04/16/17 01/05/18 History Inhaler] Montelukast [Singulair] 10 mg PO HS 04/16/17 01/05/18 History Losartan Potassium [Cozaar] 25 mg PO DAILY 06/24/17 01/05/18 History Pioglitazone [Actos] 30 mg PO DAILY 09/15/17 01/05/18 History Insulin Regular, Human [humulin R 10 unit SQ HS 09/19/17 01/05/18 History U-500 Kwikpen] Atorvastatin [Lipitor] 20 mg PO HS 10/22/17 01/05/18 History Gabapentin 600 mg PO TID 10/22/17 01/05/18 History Insulin Regular, Human [humulin R 35 units SQ QAM 10/22/17 01/05/18 History U-500 Kwikpen] Ipratropium-Albuterol Nebulize 3 ml INHALATION RT-QID 10/22/17 01/05/18 History [Duoneb 0.5 mg-3 mg/3 ml Soln] busPIRone HCl [Buspar] 5 mg PO BID 01/05/18 01/05/18 History metFORMIN HCL [Glucophage] 1,000 mg PO AC-SUPPER 01/05/18 01/05/18 History metFORMIN HCL [Glucophage] 500 mg PO AC-BID 01/05/18 01/05/18 History Allergies Allergy/AdvReac Type Severity Reaction Status Date / Time adhesive Allergy red skin Verified 01/05/18 15:09 Iodinated Contrast- Oral and Allergy Itching Verified 01/05/18 15:09 IV Dye [Iodinated Contrast Media - IV Dye] prednisone Allergy Rapid Verified 01/05/18 15:09 Heart Rate tramadol Allergy Unknown Verified 01/05/18 15:09 verapamil Allergy Anaphylaxis Verified 01/05/18 15:09 celecoxib [From Celebrex] AdvReac CAUSES GI Verified 01/05/18 15:09 BLEEDING cephalexin monohydrate AdvReac Vomiting Verified 01/05/18 15:09 [From Keflex] diphenhydramine AdvReac Itching Verified 01/05/18 15:09 [From Benadryl] hydrocodone AdvReac Nausea & Verified 01/05/18 15:09 Vomiting metoprolol AdvReac Chest Pain Verified 01/05/18 15:09 Penicillins AdvReac Nausea & Verified 01/05/18 15:09 Vomiting Surgical - Exam Vital Signs Temp Pulse Resp BP Pulse Ox 98.0 F 113 H 20 116/82 97 01/05/18 14:25 01/05/18 14:25 01/05/18 14:25 01/05/18 14:25 01/05/18 14:25 GENERAL APPEARANCE: 47-year-old female patient is alert sitting up in the edge of the bed reports a nausea sensation did vomit contrast VITAL SIGNS: Reviewed HEENT: Head is normocephalic and atraumatic. Pupils are equal and reactive. The nares are patent. Oropharynx is clear without lesions. NECK: Supple without lymphadenopathy. Traches midline. HEART: S1, S2. Regular rate and rhythm. No murmur noted denying chest pain LUNGS: No crackles or wheezes are heard. On room air adequate air entry ABDOMEN: Soft, diffuse tenderness across the abdominal wall. With palpitation increased tenderness to the right lower quadrant radiates to the Umbilical region nondistended with a few hypoactive No peritoneal signs. No palpable organomegaly or masses. Reports a nausea sensation did vomit. No stooling passing gas EXTREMITIES: Normal skin color and turgor. No cyanosis, rash, ulceration, clubbing or edema. Radial pedal pulses are 2/4 bilaterally. NEUROLOGICAL: No focal deficits. Strength and sensation are grossly intact. Results - Labs 01/06/18 07:16 01/06/18 07:16 Abnormal Lab Results - Last 24 Hours (Table) 01/05/18 01/06/18 01/06/18 Range/Units 20:26 06:56 07:16 WBC (3.8-10.6) k/uL MCH (25.0-35.0) pg MCHC (31.0-37.0) g/dL RDW (11.5-15.5) % Neutrophils # (1.3-7.7) k/uL Lymphocytes # (1.0-4.8) k/uL Sodium (137-145) mmol/L BUN (7-17) mg/dL Glucose (74-99) mg/dL POC Glucose (mg/dL) 177 H 166 H (75-99) mg/dL Hemoglobin A1c 6.5 H (4.0-6.0) % 01/06/18 01/06/18 01/06/18 Range/Units 07:16 07:16 11:21 WBC 13.0 H (3.8-10.6) k/uL MCH 24.7 L (25.0-35.0) pg MCHC 30.6 L (31.0-37.0) g/dL RDW 15.8 H (11.5-15.5) % Neutrophils # 12.1 H (1.3-7.7) k/uL Lymphocytes # 0.6 L (1.0-4.8) k/uL Sodium 146 H (137-145) mmol/L BUN 20 H (7-17) mg/dL Glucose 173 H (74-99) mg/dL POC Glucose (mg/dL) 143 H (75-99) mg/dL Hemoglobin A1c (4.0-6.0) % Diabetes panel 01/06/18 01/06/18 Range/Units 07:16 07:16 Sodium 146 H (137-145) mmol/L Potassium 4.7 (3.5-5.1) mmol/L Chloride 103 (98-107) mmol/L Carbon Dioxide 27 (22-30) mmol/L BUN 20 H (7-17) mg/dL Creatinine 0.71 (0.52-1.04) mg/dL Glucose 173 H (74-99) mg/dL Hemoglobin A1c 6.5 H (4.0-6.0) % Calcium 9.6 (8.4-10.2) mg/dL AST 16 (14-36) U/L ALT 19 (9-52) U/L Alkaline Phosphatase 106 (38-126) U/L Total Protein 6.9 (6.3-8.2) g/dL Albumin 3.8 (3.5-5.0) g/dL Calcium panel 01/06/18 Range/Units 07:16 Calcium 9.6 (8.4-10.2) mg/dL Albumin 3.8 (3.5-5.0) g/dL Pituitary panel 01/06/18 Range/Units 07:16 Sodium 146 H (137-145) mmol/L Potassium 4.7 (3.5-5.1) mmol/L Chloride 103 (98-107) mmol/L Carbon Dioxide 27 (22-30) mmol/L BUN 20 H (7-17) mg/dL Creatinine 0.71 (0.52-1.04) mg/dL Glucose 173 H (74-99) mg/dL Calcium 9.6 (8.4-10.2) mg/dL Adrenal panel 01/06/18 Range/Units 07:16 Sodium 146 H (137-145) mmol/L Potassium 4.7 (3.5-5.1) mmol/L Chloride 103 (98-107) mmol/L Carbon Dioxide 27 (22-30) mmol/L BUN 20 H (7-17) mg/dL Creatinine 0.71 (0.52-1.04) mg/dL Glucose 173 H (74-99) mg/dL Calcium 9.6 (8.4-10.2) mg/dL Total Bilirubin 0.5 (0.2-1.3) mg/dL AST 16 (14-36) U/L ALT 19 (9-52) U/L Alkaline Phosphatase 106 (38-126) U/L Total Protein 6.9 (6.3-8.2) g/dL Albumin 3.8 (3.5-5.0) g/dL Assessment and Plan Assessment: Impression Present on admission acute abdominal pain suspect due to a small bowel obstruction Present on admission mild leukocytosis History of a cholecystectomy 3 years prior Morbid obesity BMI 44 Anxiety depressive disorder Chronic lower back pain likely due to degenerative disc disease Present on admission sinus tachycardia suspect reactive Hyperlipidemia A history of SVT Type 2 diabetes Moderate persistent asthma Obstructive sleep apnea with the use of CPAP therapy Plan We'll repeat a CAT scan of the abdomen pelvis using oral contrast Consult medical service for medical management Home meds held secondary to nasal gastric tube in place Continue with the nasal gastric tube as ordered IV fluid for hydration NG tube to suction DVT and GI prophylaxis Further recommendations pending clinical course The above impression and plan of care have been discussed and directed by signing physician. Megan Klein nurse practitioner acting as scribe for signing physician.
--- NOTE | 2018-01-06 15:44 | CT ---
EXAMINATION TYPE: CT abdomen pelvis wo con DATE OF EXAM: 01/06/2018 COMPARISON: 01/05/2018 HISTORY: Generalized pain with nasuea and vomiting CT DLP: 1997.5 mGycm Examination of the solid and hollow viscera is limited given the lack of contrast. FINDINGS: LUNG BASES: No evidence for nodule. Dependent basilar atelectasis noted. LIVER/GB: Cholecystectomy clips noted. No space-occupying hepatic lesion. PANCREAS: No pancreatic mass identified. No inflammatory process seen. SPLEEN: No evidence for splenomegaly. No intrasplenic lesions seen. ADRENALS: No adrenal nodules identified. No evidence for thickening. KIDNEYS: No evidence for renal mass. No nephrolithiasis. No hydronephrosis. Contrast is seen within t he urinary bladder from recent CT evaluation. BOWEL: NG tube is seen coursing into the stomach. Improvement in overall appearance of jejunal loops without dilatation. Mild wall thickening persists. Ileal loops appear to be of normal caliber without wall thickening. Contrast is not identified within the colon at this time. No evidence for free air or abscess. Lymph nodes: No evidence for adenopathy greater than 1 cm. Abdominal aorta: Atheromatous changes seen. No evidence for aneurysm. Genital organs: No significant abnormality. Other: No significant abnormality. IMPRESSION: 1.Improvement in overall appearance of jejunal loops without dilatation. Mild wall thickening persist s. Correlate for enteritis. No evidence of bowel obstruction at this time.
[2018-01-06] MEDS ORDERED: METOCLOPRAMIDE 5 MG/ML 2 ML VIAL IVP STA (15:50)
[2018-01-06] MEDS ORDERED: ALBUTEROL NEBULIZED 2.5 MG/3 ML INHALATION PRN (16:49)
--- NOTE | 2018-01-06 16:49 | P.CONS ---
History of Present Illness - Reason for Consult Consult date: 01/06/18 medical management Requesting physician: Del Porter - Chief Complaint bowel obstruction. - History of Present Illness This is a 47-year-old female patient of Dr. Monsivais and refinisher, Dr. Chang and Dr. العراقي, with a past medical history of atrial tachycardia under the care of Dr. العراقي post cardiac ablation, last heart catheterization 2 years ago. asthma moderate persistent, TIA, diabetes mellitus type 2, fibromyalgia, gastroesophageal reflux disease, hyperlipidemia, osteoarthritis, sleep apnea, migraine headaches, chronic back pain with degenerative disc disease, psoriasis, thyroid nodules, patient was brought into the [facility] because of increased abdominal pain associated with nausea without vomiting, patient underwent computed tomography scan of the abdomen and pelvis with contrast that showed evidence of small bowel obstruction with hiatal hernia, she was admitted under general surgery she has an NG tube in place since it was removed We were asked to see the patient in consultation for medical management. Review of Systems Constitutional: Reports weight gain, Denies anorexia, Denies chronic headaches, Denies lethargy, Denies weakness Eyes: denies blurred vision, denies bulging eye, denies decreased vision Ears: deny: decreased hearing Ears, nose, mouth and throat: Reports sore throat, Denies dysphagia, Denies neck lump Cardiovascular: Denies chest pain, Denies decreased exercise tolerance, Denies dyspnea on exertion, Denies rapid heart beat, Denies shortness of breath, Denies syncope Respiratory: Reports sleep apnea, Reports snoring, Denies congestion, Denies cough with sputum, Denies home oxygen, Denies wheezing Gastrointestinal: Reports abdominal pain, Reports bloating, Reports nausea, Denies vomiting Genitourinary: Denies dysuria, Denies hematuria Musculoskeletal: Denies myalgias Musculoskeletal: absent: ankle pain, ankle stiffness, ankle swelling, elbow pain , elbow stiffness, elbow swelling, foot pain, foot stiffness, foot swelling, hand pain, hand stiffness, hand swelling, hip pain, hip stiffness, hip swelling , knee pain, knee stiffness, knee swelling, shoulder pain, shoulder stiffness, shoulder swelling, wrist pain, wrist stiffness, wrist swelling Integumentary: Denies pruritus, Denies rash Neurological: Denies numbness, Denies weakness Psychiatric: Reports anxiety, Reports depression Endocrine: Denies fatigue, Denies weight change Past Medical History Past Medical History: Asthma, Chest Pain / Angina, CVA/TIA, Diabetes Mellitus, Fibromyalgia, GERD/Reflux, Hyperlipidemia, Osteoarthritis (OA), Skin Disorder, Sleep Apnea/CPAP/BIPAP, Thyroid Disorder Additional Past Medical History / Comment(s): hx migraines, TIA 2016-weakness in hands and legs, two bulging disks, degenerative disk disease, neuopathy- upper and lower extremeties, uses walker, psoriasis, nodules on thyroid, bursitis left hip , malfunctioning heart valve, SVT History of Any Multi-Drug Resistant Organisms: None Reported Past Surgical History: Adenoidectomy, Cholecystectomy, EPS, Heart Catheterization, Orthopedic Surgery, Tonsillectomy Additional Past Surgical History / Comment(s): D&C, carpal tunnel surgery left , LT ARM SX FOR "PINCHED NERVE", LT THUMB TRIGGER FINGER, rae neuroma removed left foot, cardiac ablation Past Anesthesia/Blood Transfusion Reactions: Previous Problems w/ Anesthesia, Motion Sickness Additional Past Anesthesia/Blood Transfusion Reaction / Comm: difficulty waking from anesthesia Smoking Status: Former smoker - Past Family History Father Family Medical History: Cancer Additional Family Medical History / Comment(s): skin Mother Family Medical History: Diabetes Mellitus, Hypertension, Osteoarthritis (OA) Additional Family Medical History / Comment(s): MURMUR Sister(s) Family Medical History: Cancer Additional Family Medical History / Comment(s): ovarian Medications and Allergies Home Medications Medication Instructions Recorded Confirmed Type DULoxetine HCL [Cymbalta] 60 mg PO DAILY 04/28/16 01/05/18 History Aspirin EC [Ecotrin Low Dose] 81 mg PO DAILY #30 tablet. 11/07/16 01/05/18 Rx Beclomethasone Dipropionate [Qvar 2 puff INHALATION RT-BID 02/24/17 01/05/18 History 80 mcg] Dapagliflozin Propanediol [Farxiga] 10 mg PO DAILY 03/18/17 01/05/18 History Albuterol Inhaler [Ventolin Hfa 2 puff INHALATION RT-QID PRN 04/16/17 01/05/18 History Inhaler] Montelukast [Singulair] 10 mg PO HS 04/16/17 01/05/18 History Losartan Potassium [Cozaar] 25 mg PO DAILY 06/24/17 01/05/18 History Pioglitazone [Actos] 30 mg PO DAILY 09/15/17 01/05/18 History Insulin Regular, Human [humulin R 10 unit SQ HS 09/19/17 01/05/18 History U-500 Kwikpen] Atorvastatin [Lipitor] 20 mg PO HS 10/22/17 01/05/18 History Gabapentin 600 mg PO TID 10/22/17 01/05/18 History Insulin Regular, Human [humulin R 35 units SQ QAM 10/22/17 01/05/18 History U-500 Kwikpen] Ipratropium-Albuterol Nebulize 3 ml INHALATION RT-QID 10/22/17 01/05/18 History [Duoneb 0.5 mg-3 mg/3 ml Soln] busPIRone HCl [Buspar] 5 mg PO BID 01/05/18 01/05/18 History metFORMIN HCL [Glucophage] 1,000 mg PO AC-SUPPER 01/05/18 01/05/18 History metFORMIN HCL [Glucophage] 500 mg PO AC-BID 01/05/18 01/05/18 History Allergies Allergy/AdvReac Type Severity Reaction Status Date / Time adhesive Allergy red skin Verified 01/05/18 15:09 Iodinated Contrast- Oral and Allergy Itching Verified 01/05/18 15:09 IV Dye [Iodinated Contrast Media - IV Dye] prednisone Allergy Rapid Verified 01/05/18 15:09 Heart Rate tramadol Allergy Unknown Verified 01/05/18 15:09 verapamil Allergy Anaphylaxis Verified 01/05/18 15:09 celecoxib [From Celebrex] AdvReac CAUSES GI Verified 01/05/18 15:09 BLEEDING cephalexin monohydrate AdvReac Vomiting Verified 01/05/18 15:09 [From Keflex] diphenhydramine AdvReac Itching Verified 01/05/18 15:09 [From Benadryl] hydrocodone AdvReac Nausea & Verified 01/05/18 15:09 Vomiting metoprolol AdvReac Chest Pain Verified 01/05/18 15:09 Penicillins AdvReac Nausea & Verified 01/05/18 15:09 Vomiting Physical Exam Vitals: Vital Signs Temp Pulse Pulse Resp BP BP Pulse Ox 01/06/18 07:40 105 H 18 01/06/18 07:00 97.6 F 105 H 18 124/75 93 L 01/06/18 00:50 97.4 F L 100 12 124/83 92 L 01/06/18 00:00 16 01/05/18 20:35 100 16 01/05/18 19:24 97.4 F L 97 15 134/85 97 01/05/18 18:20 98.1 F 105 H 19 152/97 97 01/05/18 17:00 103 H 18 98/57 97 01/05/18 16:17 100 18 110/57 98 Intake and Output 01/06/18 01/06/18 01/06/18 06:59 14:59 22:59 Intake Total 1599 Balance 1599 Intake: Intake, IV Titration 999 Amount Sodium Chloride 0.9% 1, 999 000 ml @ 999 mls/hr IV . Q1H1M ONE Rx#:[id number] Oral 600 Other: Voiding Method Toilet # Voids 3 - Constitutional General appearance: mild distress, obese - EENT Eyes: anicteric sclerae, EOMI, PERRLA, no ptosis, no scleral icterus, normal appearance ENT: hearing grossly normal, NA/AT, no thrush Ears: bilateral: normal - Neck Neck: no lymphadenopathy, normal ROM, no rigidity, no stridor, thyromegaly Carotids: bilateral: upstroke normal Thyroid: bilateral: normal size - Respiratory Respiratory: bilateral: diminished, negative: dullness, rales, rhonchi, wheezing , prolonged expiration - Cardiovascular Rhythm: regular Heart sounds: normal: S1, S2 Abnormal Heart Sounds: no S3 Gallop - Gastrointestinal General gastrointestinal: hyperactive bowel sounds, soft, tenderness - Integumentary Integumentary: normal, normal turgor - Neurologic Neurologic: CNII-XII intact - Musculoskeletal Musculoskeletal: strength equal bilaterally - Psychiatric Psychiatric: A&O x's 3, appropriate affect, intact judgment & insight Results CBC & Chem 7: 01/06/18 07:16 01/06/18 07:16 Labs: Abnormal Lab Results - Last 24 Hours (Table) 01/05/18 01/06/18 01/06/18 Range/Units 20:26 06:56 07:16 WBC (3.8-10.6) k/uL MCH (25.0-35.0) pg MCHC (31.0-37.0) g/dL RDW (11.5-15.5) % Neutrophils # (1.3-7.7) k/uL Lymphocytes # (1.0-4.8) k/uL Sodium (137-145) mmol/L BUN (7-17) mg/dL Glucose (74-99) mg/dL POC Glucose (mg/dL) 177 H 166 H (75-99) mg/dL Hemoglobin A1c 6.5 H (4.0-6.0) % 01/06/18 01/06/18 01/06/18 Range/Units 07:16 07:16 11:21 WBC 13.0 H (3.8-10.6) k/uL MCH 24.7 L (25.0-35.0) pg MCHC 30.6 L (31.0-37.0) g/dL RDW 15.8 H (11.5-15.5) % Neutrophils # 12.1 H (1.3-7.7) k/uL Lymphocytes # 0.6 L (1.0-4.8) k/uL Sodium 146 H (137-145) mmol/L BUN 20 H (7-17) mg/dL Glucose 173 H (74-99) mg/dL POC Glucose (mg/dL) 143 H (75-99) mg/dL Hemoglobin A1c (4.0-6.0) % Assessment and Plan Assessment: Assessment and plan: 1. Small bowel obstruction . Patient has NG tube removed.. Continue with nothing per mouth except for ice chips, continue other treatment as outlined by general surgery team. 2. Hypertension and hypertensive cardiovascular disease. We will continue losartan 25 mg orally daily. 3. Hyperlipidemia. Hold off statin for now. 4. Chronic lower back pain and chronic neuropathy from degenerative disc disease and diabetes. Hold off Cymbalta for now. 5. Obstructive sleep apnea. Has been using CPAP on regular basis. 6. GERD. Continue with Pepcid 20 mg orally bid. 7. Type 2 diabetes. We will discontinue oral medicine and we'll start the patient on sliding scale insulin. 8. Moderate persistent asthma. We will continue DuoNeb 3 him nebulization 4 times every day and incentive spirometer. 9. DVT prophylaxis. Bilateral knee-high KUMAR hose and heparin 5000 units subcutaneously every 8 hours. 10. GI prophylaxis. Continue PPI. 11. Thank you for the consult we will follow with you.
[2018-01-06] MEDS: HEPARIN SODIUM,PORCINE 5,000 UNIT/ML 1 ML VIAL SQ SCH (17:16)
[2018-01-06 17:38] LABS: Glucose,Whole Blood 145 mg/dL (75-99)
[2018-01-06 20:52] LABS: Glucose,Whole Blood 122 mg/dL (75-99)
[2018-01-06] MEDS: BUDESONIDE 1 MG/2 ML NEBU INHALATION SCH (21:11)
[2018-01-06] MEDS: IPRATROPIUM-ALBUTEROL 3 ML NEB INHALATION SCH (21:11)
[2018-01-06] MEDS: FAMOTIDINE 20 MG TAB PO SCH (21:58)
[2018-01-07] MEDS: HEPARIN SODIUM,PORCINE 5,000 UNIT/ML 1 ML VIAL SQ SCH ×3 (01:00→17:45)
[2018-01-07 07:21] LABS: Glucose,Whole Blood 135 mg/dL (75-99)
[2018-01-07 08:10] LABS: Basophils % (A) 0 %; Eosinophils % (A) 0 %; HCT 36.2 % (34.0-46.0); HGB 11.2 gm/dL (11.4-16.0); Hypochromasia Moderate; Lymphocytes # (A) 1.3 k/uL (1.0-4.8); Lymphocytes % (A) 12 %; MCH 25.1 pg (25.0-35.0); MCV 80.9 fL (80.0-100.0); Monocytes # (A) 0.4 k/uL (0-1.0); Monocytes % (A) 4 %; Neutrophils # (A) 8.9 k/uL (1.3-7.7); Neutrophils % (A) 83 %; Platelet Count 190 k/uL (150-450); RBC 4.48 m/uL (3.80-5.40); WBC 10.8 k/uL (3.8-10.6)
[2018-01-07] MEDS: IPRATROPIUM-ALBUTEROL 3 ML NEB INHALATION SCH ×4 (08:36→21:31)
[2018-01-07] MEDS: BUDESONIDE 1 MG/2 ML NEBU INHALATION SCH ×2 (08:36→21:31)
[2018-01-07 09:06] LABS: ALT 18 U/L (9-52); AST 13 U/L (14-36); Albumin 3.4 g/dL (3.5-5.0); Alkaline Phosphatase 88 U/L (38-126); Anion Gap 11 mmol/L; Blood Urea Nitrogen 26 mg/dL (7-17); Calcium 8.8 mg/dL (8.4-10.2); Carbon Dioxide 26 mmol/L (22-30); Chloride 105 mmol/L (98-107); Glucose 127 mg/dL (74-99); Potassium 3.8 mmol/L (3.5-5.1); Sodium 142 mmol/L (137-145); Total Bilirubin 0.4 mg/dL (0.2-1.3)
[2018-01-07] MEDS ORDERED: MORPHINE ORAL SOLN 10 MG/5 ML CUP PO PRN ×2 (09:25→13:03)
[2018-01-07] MEDS: INSULIN ASPART 100 UNIT/ML 1 ML 10 ML VIAL SQ SCH ×6 (09:30→20:59)
[2018-01-07] MEDS: LOSARTAN 25 MG TAB PO SCH (09:39)
[2018-01-07] MEDS: FAMOTIDINE 20 MG TAB PO SCH (09:39)
[2018-01-07] MEDS ORDERED: DULoxetine HCL 60 MG CAPSULE.DR PO SCH (11:45)
[2018-01-07 11:46] LABS: Glucose,Whole Blood 132 mg/dL (75-99)
[2018-01-07] MEDS: PIOGLITAZONE 30 MG TAB PO SCH (12:35)
[2018-01-07] MEDS: ASPIRIN 81 MG PO SCH (12:35)
[2018-01-07] MEDS: busPIRone HCl 5 MG TAB PO SCH ×2 (12:37→20:59)
[2018-01-07] MEDS: GABAPENTIN 300 MG CAP PO SCH ×3 (12:37→21:00)
--- NOTE | 2018-01-07 12:59 | P.PN ---
Subjective Progress Note Date: 01/07/18 47-year-old female sitting up in bed teary-eyed crying states feels overly anxious. Nursing is giving the patient IV Ativan for anxiety Is denying any abdominal pain when questioning. Tolerating clear liquid diet no nausea no vomiting. Patient states that she has an anxiety depressive disorder her family physician has started patient on BuSpar. Patient "thinks I need the dose increased" patient has not had any further episodes of emesis. Currently is a denying abdominal pain Objective - Vital Signs Vital signs: Vital Signs Temp 97.8 F 01/07/18 07:00 Pulse 98 01/07/18 08:56 Resp 18 01/07/18 07:00 BP 141/97 01/07/18 07:00 Pulse Ox 100 01/07/18 07:00 Intake & Output 01/06/18 01/07/18 01/07/18 18:59 06:59 18:59 Intake Total 1650 2560 0 Output Total 400 Balance 1250 2560 0 Intake: Intake, IV Titration 1200 1600 Amount Sodium Chloride 0.9% 1, 1200 1600 000 ml @ 100 mls/hr IV . Q10H [facility] Rx#:[id number] Oral 450 960 0 Output: Emesis 400 Other: Voiding Method Toilet Toilet # Voids 3 3 - Exam Physical exam 47-year-old female teary-eyed crying this morning. Patient states she feels overwhelmed and anxious over home situation. Currently denying dizziness lightheadedness chest pain or shortness of breath or abdominal pain Lungs adequate air movement bilaterally on room air Heart S1-S2 audible regular Abdomen obese soft not distended no facial grimacing with palpitation to the abdominal wall denies nausea vomiting tolerating clear liquid no stool no difficulty in urinating Extremities no edema noted to the lower extremities - Labs CBC & Chem 7: 01/07/18 07:37 01/07/18 07:37 Labs: Abnormal Lab Results - Last 24 Hours (Table) 01/06/18 01/06/18 01/07/18 Range/Units 17:26 20:47 07:19 WBC (3.8-10.6) k/uL Hgb (11.4-16.0) gm/dL RDW (11.5-15.5) % Neutrophils # (1.3-7.7) k/uL BUN (7-17) mg/dL Glucose (74-99) mg/dL POC Glucose (mg/dL) 145 H 122 H 135 H (75-99) mg/dL AST (14-36) U/L Total Protein (6.3-8.2) g/dL Albumin (3.5-5.0) g/dL 01/07/18 01/07/18 01/07/18 Range/Units 07:37 07:37 11:18 WBC 10.8 H (3.8-10.6) k/uL Hgb 11.2 L (11.4-16.0) gm/dL RDW 16.0 H (11.5-15.5) % Neutrophils # 8.9 H (1.3-7.7) k/uL BUN 26 H (7-17) mg/dL Glucose 127 H (74-99) mg/dL POC Glucose (mg/dL) 132 H (75-99) mg/dL AST 13 L (14-36) U/L Total Protein 6.0 L (6.3-8.2) g/dL Albumin 3.4 L (3.5-5.0) g/dL Assessment and Plan Assessment: Impression Present on admission acute abdominal pain suspect due to a small bowel obstruction resolved Present on admission mild leukocytosis resolved History of a cholecystectomy 3 years prior Morbid obesity BMI 44 Anxiety depressive disorder Chronic lower back pain likely due to degenerative disc disease Present on admission sinus tachycardia suspect reactive Hyperlipidemia A history of SVT Type 2 diabetes Moderate persistent asthma Obstructive sleep apnea with the use of CPAP therapy Plan Start full liquid diet Continue recommendations per medical service for medical management Home meds to be restarted as appropriate IV fluid for hydration DVT and GI prophylaxis Further recommendations pending clinical course Increase activity The above impression and plan of care have been discussed and directed by signing physician. Megan Klein nurse practitioner acting as scribe for signing physician.
--- NOTE | 2018-01-07 15:08 | P.PN ---
Subjective Progress Note Date: 01/07/18 This is a 47-year-old female patient of Dr. Monsivais and early intervention specialist, Dr. Chang and Dr. العراقي, with a past medical history of atrial tachycardia under the care of Dr. العراقي post cardiac ablation, last heart catheterization 2 years ago. asthma moderate persistent, TIA, diabetes mellitus type 2, fibromyalgia, gastroesophageal reflux disease, hyperlipidemia, osteoarthritis, sleep apnea, migraine headaches, chronic back pain with degenerative disc disease, psoriasis, thyroid nodules, patient was brought into the [facility] because of increased abdominal pain associated with nausea without vomiting, patient underwent computed tomography scan of the abdomen and pelvis with contrast that showed evidence of small bowel obstruction with hiatal hernia, she was admitted under general surgery she has an NG tube in place since it was removed We were asked to see the patient in consultation for medical management. 01/07: Patient is complaining of left hip pain for which a K pad will be ordered. Patient is requesting BuSpar be increased. She states she takes 5 mg daily at home but on her med reconciliation is listed as twice daily which has been started here. Patient is tolerating clear liquids. No nausea or vomiting. No abdominal pain. Objective - Vital Signs Vital signs: Vital Signs Temp 97.8 F 01/07/18 01:55 Pulse 98 01/07/18 08:56 Resp 16 01/07/18 01:55 BP 132/75 01/07/18 01:55 Pulse Ox 95 01/07/18 01:55 Intake & Output 01/06/18 01/07/18 01/07/18 18:59 06:59 18:59 Intake Total 1650 2560 0 Output Total 400 Balance 1250 2560 0 Intake: Intake, IV Titration 1200 1600 Amount Sodium Chloride 0.9% 1, 1200 1600 000 ml @ 100 mls/hr IV . Q10H [facility] Rx#:[id number] Oral 450 960 0 Output: Emesis 400 Other: Voiding Method Toilet # Voids 3 3 - Exam General appearance: mild distress, obese - EENT Eyes: anicteric sclerae, EOMI, PERRLA, no ptosis, no scleral icterus, normal appearance ENT: hearing grossly normal, NA/AT, no thrush Ears: bilateral: normal - Neck Neck: no lymphadenopathy, normal ROM, no rigidity, no stridor, thyromegaly Carotids: bilateral: upstroke normal Thyroid: bilateral: normal size - Respiratory Respiratory: bilateral: diminished, negative: dullness, rales, rhonchi, wheezing , prolonged expiration - Cardiovascular Rhythm: regular Heart sounds: normal: S1, S2 Abnormal Heart Sounds: no S3 Gallop - Gastrointestinal General gastrointestinal: hyperactive bowel sounds, soft, tenderness - Integumentary Integumentary: normal, normal turgor - Neurologic Neurologic: CNII-XII intact - Musculoskeletal Musculoskeletal: strength equal bilaterally - Psychiatric Psychiatric: A&O x's 3, appropriate affect, intact judgment & insight - Labs CBC & Chem 7: 01/07/18 07:37 01/07/18 07:37 Labs: Abnormal Lab Results - Last 24 Hours (Table) 01/06/18 01/06/18 01/06/18 Range/Units 07:16 11:21 17:26 WBC (3.8-10.6) k/uL Hgb (11.4-16.0) gm/dL RDW (11.5-15.5) % Neutrophils # (1.3-7.7) k/uL BUN (7-17) mg/dL Glucose (74-99) mg/dL POC Glucose (mg/dL) 143 H 145 H (75-99) mg/dL Hemoglobin A1c 6.5 H (4.0-6.0) % AST (14-36) U/L Total Protein (6.3-8.2) g/dL Albumin (3.5-5.0) g/dL 01/06/18 01/07/18 01/07/18 Range/Units 20:47 07:19 07:37 WBC 10.8 H (3.8-10.6) k/uL Hgb 11.2 L (11.4-16.0) gm/dL RDW 16.0 H (11.5-15.5) % Neutrophils # 8.9 H (1.3-7.7) k/uL BUN (7-17) mg/dL Glucose (74-99) mg/dL POC Glucose (mg/dL) 122 H 135 H (75-99) mg/dL Hemoglobin A1c (4.0-6.0) % AST (14-36) U/L Total Protein (6.3-8.2) g/dL Albumin (3.5-5.0) g/dL 01/07/18 Range/Units 07:37 WBC (3.8-10.6) k/uL Hgb (11.4-16.0) gm/dL RDW (11.5-15.5) % Neutrophils # (1.3-7.7) k/uL BUN 26 H (7-17) mg/dL Glucose 127 H (74-99) mg/dL POC Glucose (mg/dL) (75-99) mg/dL Hemoglobin A1c (4.0-6.0) % AST 13 L (14-36) U/L Total Protein 6.0 L (6.3-8.2) g/dL Albumin 3.4 L (3.5-5.0) g/dL Assessment and Plan Plan: 1. Small bowel obstruction . Patient has NG tube removed. Continue clear liquid diet, continue other treatment as outlined by general surgery team. 2. Hypertension and hypertensive cardiovascular disease. We will continue losartan 25 mg orally daily. 3. Hyperlipidemia. Continue Lipitor. 4. Chronic lower back pain and chronic neuropathy from degenerative disc disease and diabetes. Hold off Cymbalta for now. K pad ordered for hip pain. 5. Obstructive sleep apnea. Has been using CPAP on regular basis. 6. GERD. Continue with Pepcid 20 mg orally bid. 7. Type 2 diabetes. We will discontinue oral medicine and we'll start the patient on sliding scale insulin. 8. Moderate persistent asthma. We will continue DuoNeb 3 him nebulization 4 times every day and incentive spirometer. 9. DVT prophylaxis. Bilateral knee-high KUMAR hose and heparin 5000 units subcutaneously every 8 hours. 10. GI prophylaxis. Continue PPI. 11. Recurrent depression and generalized anxiety disorder. Continue BuSpar 5 mg twice daily Impression and plan of care have been directed as dictated by the signing physician. Gisselle Kirby nurse practitioner acting as scribe for signing physician.
[2018-01-07] MEDS: ONDANSETRON 4 MG/2 ML VIAL IVP PRN (16:40)
[2018-01-07 17:28] LABS: Glucose,Whole Blood 144 mg/dL (75-99)
[2018-01-07 20:42] LABS: Glucose,Whole Blood 169 mg/dL (75-99)
[2018-01-07] MEDS ORDERED: MONTELUKAST 10 MG TAB PO SCH (21:00)
[2018-01-07] MEDS ORDERED: ATORVASTATIN 20 MG TAB PO SCH (21:00)
[2018-01-08] MEDS: INSULIN ASPART 100 UNIT/ML 1 ML 10 ML VIAL SQ SCH ×6 (02:36→12:45)
[2018-01-08] MEDS: Dapagliflozin Propanediol [Farxiga] 10 MG PO SCH ×2 (02:36→08:40)
[2018-01-08] MEDS: SODIUM CHLORIDE 0.9% 1,000 ML IV SCH ×4 (02:36→08:56)
[2018-01-08] MEDS: FAMOTIDINE 20 MG TAB PO SCH ×2 (02:37→08:38)
[2018-01-08] MEDS: HEPARIN SODIUM,PORCINE 5,000 UNIT/ML 1 ML VIAL SQ SCH ×2 (02:38→08:37)
[2018-01-08 07:37] LABS: Basophils % (A) 0 %; Eosinophils # (A) 0.1 k/uL (0-0.7); Eosinophils % (A) 2 %; HCT 35.8 % (34.0-46.0); HGB 11.2 gm/dL (11.4-16.0); Hypochromasia Slight; Lymphocytes # (A) 1.2 k/uL (1.0-4.8); Lymphocytes % (A) 18 %; MCH 25.1 pg (25.0-35.0); MCHC 31.2 g/dL (31.0-37.0); MCV 80.6 fL (80.0-100.0); Mean Platelet Volume 6.8; Monocytes # (A) 0.4 k/uL (0-1.0); Monocytes % (A) 6 %; Neutrophils # (A) 4.7 k/uL (1.3-7.7); Neutrophils % (A) 73 %; Platelet Count 204 k/uL (150-450); RBC 4.44 m/uL (3.80-5.40); RDW 15.8 % (11.5-15.5); WBC 6.4 k/uL (3.8-10.6)
[2018-01-08 07:37] LABS: Glucose,Whole Blood 121 mg/dL (75-99)
[2018-01-08] MEDS: BUDESONIDE 1 MG/2 ML NEBU INHALATION SCH (07:40)
[2018-01-08] MEDS: IPRATROPIUM-ALBUTEROL 3 ML NEB INHALATION SCH ×2 (07:44→11:19)
[2018-01-08 07:45] LABS: ALT 21 U/L (9-52); AST 15 U/L (14-36); Albumin 3.4 g/dL (3.5-5.0); Alkaline Phosphatase 90 U/L (38-126); Anion Gap 10 mmol/L; Blood Urea Nitrogen 16 mg/dL (7-17); Calcium 8.8 mg/dL (8.4-10.2); Carbon Dioxide 29 mmol/L (22-30); Chloride 105 mmol/L (98-107); Glucose 139 mg/dL (74-99); Potassium 4.2 mmol/L (3.5-5.1); Sodium 144 mmol/L (137-145); Total Bilirubin 0.5 mg/dL (0.2-1.3); Total Protein 5.9 g/dL (6.3-8.2)
[2018-01-08 08:09] VITALS: BP 138/80; RESP 18; TEMP 98.4
[2018-01-08] MEDS: DULoxetine HCL 60 MG CAPSULE.DR PO SCH ×2 (08:38→08:46)
[2018-01-08] MEDS: GABAPENTIN 300 MG CAP PO SCH (08:38)
[2018-01-08] MEDS: busPIRone HCl 5 MG TAB PO SCH (08:38)
[2018-01-08] MEDS: PIOGLITAZONE 30 MG TAB PO SCH (08:38)
[2018-01-08] MEDS: LOSARTAN 25 MG TAB PO SCH (08:39)
[2018-01-08] MEDS: ASPIRIN 81 MG PO SCH (08:39)
[2018-01-08] MEDS: ONDANSETRON 4 MG/2 ML VIAL IVP PRN (08:43)
[2018-01-08] MEDS ORDERED: BISACODYL 10 MG SUPP RECTAL STA (10:15)
--- NOTE | 2018-01-08 10:24 | P.PN ---
Subjective Progress Note Date: 01/08/18 47-year-old female seen at bedside reports a nausea sensation. Patient is teary -eyed this morning. Patient states she needs to be discharged home because of the home situation. Patient is concerned that her mother will be evicted from her apartment if the bills are not paid" when questioning patient patient is reporting mild bilateral abdominal pain. Patient states she vomited unwitnessed this morning has not had a bowel movement in days urinating no difficulty abdomen is soft white count 6.4 afebrile patient sitting up in the bed spit up clear secretions Objective - Vital Signs Vital signs: Vital Signs Temp 98.4 F 01/08/18 07:00 Pulse 101 H 01/08/18 07:48 Resp 18 01/08/18 07:00 BP 138/80 01/08/18 07:00 Pulse Ox 92 L 01/08/18 07:00 Intake & Output 01/07/18 01/08/18 01/08/18 18:59 06:59 18:59 Intake Total 978 1640 237 Balance 978 1640 237 Intake: Intake, IV Titration 500 1050 Amount Sodium Chloride 0.9% 1, 500 1050 000 ml @ 100 mls/hr IV . Q10H [facility] Rx#:[id number] Oral 478 360 237 Other: Voiding Method Toilet Toilet # Voids 2 1 - Exam Physical exam Pleasant 47-year-old female teary-eyed voicing concerns about home situation about her mother being evicted from her apartment the rent is not paid Lungs adequate air movement bilaterally on room air no shortness of breath Heart S1-S2 audible regular Abdomen obese soft no facial grimacing with palpitation to the abdominal wall bowel tones present reports a nausea sensation states hasn't vomited this morning no stool not distended Extremities no edema - Labs CBC & Chem 7: 01/08/18 07:05 01/08/18 07:05 Labs: Abnormal Lab Results - Last 24 Hours (Table) 01/07/18 01/07/18 01/07/18 Range/Units 11:18 17:16 20:39 Hgb (11.4-16.0) gm/dL RDW (11.5-15.5) % Glucose (74-99) mg/dL POC Glucose (mg/dL) 132 H 144 H 169 H (75-99) mg/dL Total Protein (6.3-8.2) g/dL Albumin (3.5-5.0) g/dL 01/08/18 01/08/18 01/08/18 Range/Units 07:05 07:05 07:35 Hgb 11.2 L (11.4-16.0) gm/dL RDW 15.8 H (11.5-15.5) % Glucose 139 H (74-99) mg/dL POC Glucose (mg/dL) 121 H (75-99) mg/dL Total Protein 5.9 L (6.3-8.2) g/dL Albumin 3.4 L (3.5-5.0) g/dL Assessment and Plan Assessment: Impression Present on admission acute abdominal pain suspect due to a small bowel obstruction resolved Present on admission mild leukocytosis resolved History of a cholecystectomy 3 years prior Morbid obesity BMI 44 Anxiety depressive disorder Chronic lower back pain likely due to degenerative disc disease Present on admission sinus tachycardia suspect reactive Hyperlipidemia A history of SVT Type 2 diabetes insulin requiring with hypoglycemic episodes Moderate persistent asthma Obstructive sleep apnea with the use of CPAP therapy Chronic constipation Plan Dulcolax suppository 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 Megan Klein nurse practitioner acting as scribe for signing physician.
[2018-01-08] MEDS ORDERED: ONDANSETRON 4 MG/2 ML VIAL IVP PRN (10:25)
[2018-01-08 11:15] LABS: Glucose,Whole Blood 194 mg/dL (75-99)
[2018-01-08] MEDS ORDERED: BISACODYL 5 MG TABLET.DR PO STA (11:24)
[2018-01-08] MEDS ORDERED: METOCLOPRAMIDE 5 MG/ML 2 ML VIAL IVP PRN (11:25)
[2018-01-08 11:28] VITALS: PULSE 105
--- NOTE | 2018-01-08 12:04 | P.DS ---
Providers Date of admission: 01/05/18 17:13 Expected date of discharge: 01/08/18 Attending physician: Del Porter Consults: 01/06/18 14:10 Consult Physician Urgent Consulting Provider: Carmen Ulloa Consult Reason/Comments: medical mtg Do you want consulting provider notified?: Yes Primary care physician: [facility] Course: 47-year-old female presents emergency room on the day of admission after developing a sudden onset of sharp stabbing pain in the umbilical abdominal region. Patient stated it woke her up from a sleep the pain was so sharp. Patient stated it was a nausea sensation. Patient denied any prior pain. In the emergency room patient was afebrile mild leukocytosis white count 11 tachycardic heart rate in the 90s to 100s. Computed tomography scan of the abdomen pelvis showed a small hiatal hernia with evidence of a small bowel obstruction partial. Subsequent the patient was admitted to the services of the attending with a medical consultation requested nasal gastric tube was inserted patient was placed on bowel rest nausea improved nasal gastric tube removed. Patient reported having a bowel movement. Patient did report this admission feeling overly anxious was concerned that her BuSpar dose needed to be increased was just started last week by her PCP. On the day of discharge abdomen was soft nondistended bowel tones present patient was eating a bowl of oatmeal but did report feeling a nausea sensation no emesis additionally was reporting feeling constipated but refused to have a Dulcolax suppository or oral. Patient was anxious to be discharged home was felt to be clinically stable and appropriate to proceed with a discharge Impression Present on admission acute abdominal pain suspect due to a small bowel obstruction resolved Present on admission mild leukocytosis resolved History of a cholecystectomy 3 years prior Morbid obesity BMI 44 Anxiety depressive disorder Chronic lower back pain likely due to degenerative disc disease Present on admission sinus tachycardia suspect reactive Hyperlipidemia A history of SVT Type 2 diabetes insulin requiring with hypoglycemic episodes Moderate persistent asthma Obstructive sleep apnea with the use of CPAP therapy Chronic constipation The above impression and plan of care have been discussed and directed by signing physician. Megan Klein nurse practitioner acting as scribe for signing physician. Patient Condition at Discharge: Good Plan - Discharge Summary Discharge Rx Participant: No New Discharge Prescriptions: Continue DULoxetine HCL [Cymbalta] 60 mg PO DAILY Aspirin EC [Ecotrin Low Dose] 81 mg PO DAILY #30 tablet. Beclomethasone Dipropionate [Qvar 80 mcg] 2 puff INHALATION RT-BID Dapagliflozin Propanediol [Farxiga] 10 mg PO DAILY Albuterol Inhaler [Ventolin Hfa Inhaler] 2 puff INHALATION RT-QID PRN PRN Reason: Shortness Of Breath Montelukast [Singulair] 10 mg PO HS Losartan Potassium [Cozaar] 25 mg PO DAILY Pioglitazone [Actos] 30 mg PO DAILY Insulin Regular, Human [humulin R U-500 Kwikpen] 10 unit SQ HS Atorvastatin [Lipitor] 20 mg PO HS Gabapentin 600 mg PO TID Insulin Regular, Human [humulin R U-500 Kwikpen] 35 units SQ QAM Ipratropium-Albuterol Nebulize [Duoneb 0.5 mg-3 mg/3 ml Soln] 3 ml INHALATION RT-QID busPIRone HCl [Buspar] 5 mg PO BID metFORMIN HCL [Glucophage] 500 mg PO AC-BID metFORMIN HCL [Glucophage] 1,000 mg PO AC-SUPPER Discharge Medication List DULoxetine HCL [Cymbalta] 60 mg PO DAILY 04/28/16 [History] Aspirin EC [Ecotrin Low Dose] 81 mg PO DAILY #30 tablet. 11/07/16 [Rx] Beclomethasone Dipropionate [Qvar 80 mcg] 2 puff INHALATION RT-BID 02/24/17 [ History] Dapagliflozin Propanediol [Farxiga] 10 mg PO DAILY 03/18/17 [History] Albuterol Inhaler [Ventolin Hfa Inhaler] 2 puff INHALATION RT-QID PRN 04/16/17 [ History] Montelukast [Singulair] 10 mg PO HS 04/16/17 [History] Losartan Potassium [Cozaar] 25 mg PO DAILY 06/24/17 [History] Pioglitazone [Actos] 30 mg PO DAILY 09/15/17 [History] Insulin Regular, Human [humulin R U-500 Kwikpen] 10 unit SQ HS 09/19/17 [History ] Atorvastatin [Lipitor] 20 mg PO HS 10/22/17 [History] Gabapentin 600 mg PO TID 10/22/17 [History] Insulin Regular, Human [humulin R U-500 Kwikpen] 35 units SQ QAM 10/22/17 [ History] Ipratropium-Albuterol Nebulize [Duoneb 0.5 mg-3 mg/3 ml Soln] 3 ml INHALATION RT -QID 10/22/17 [History] busPIRone HCl [Buspar] 5 mg PO BID 01/05/18 [History] metFORMIN HCL [Glucophage] 1,000 mg PO AC-SUPPER 01/05/18 [History] metFORMIN HCL [Glucophage] 500 mg PO AC-BID 01/05/18 [History] Follow up Appointment(s)/Referral(s): Sd Monsivais MD [Primary Care Provider] - 1-2 days Del Porter MD [STAFF PHYSICIAN] - 01/14/18 4:20 pm Activity/Diet/Wound Care/Special Instructions: Eat 6-8 small meals daily Advance diet as tolerated Discharge Disposition: HOME SELF-CARE
== END 2018-01-08 12:58 | disposition home or self-care (01) | DRG 389 ==
LOC: EC 14:08 → 3SUR 17:13
PROVIDERS: ADMIT Surgery; ATTEND Surgery
DX: K56.600 Partial intestinal obstruction, unspecified as to cause (principal); Z68.41 Body mass index [BMI] 40.0-44.9, adult; D72.829 Elevated white blood cell count, unspecified; E11.40 Type 2 diabetes mellitus with diabetic neuropathy, unspecified; E66.01 Morbid (severe) obesity due to excess calories; E78.5 Hyperlipidemia, unspecified; F32.9 Major depressive disorder, single episode, unspecified; G47.33 Obstructive sleep apnea (adult) (pediatric); G89.29 Other chronic pain; I11.9 Hypertensive heart disease without heart failure; J45.40 Moderate persistent asthma, uncomplicated; K21.9 Gastro-esophageal reflux disease without esophagitis; K44.9 Diaphragmatic hernia without obstruction or gangrene; M79.7 Fibromyalgia; G43.909 Migraine, unspecified, not intractable, without status migrainosus; L40.9 Psoriasis, unspecified; M19.90 Unspecified osteoarthritis, unspecified site; R00.0 Tachycardia, unspecified; M25.552 Pain in left hip; F41.0 Panic disorder [episodic paroxysmal anxiety]; E04.1 Nontoxic single thyroid nodule; M51.36 Other intervertebral disc degeneration, lumbar region; Z79.4 Long term (current) use of insulin; Z79.899 Other long term (current) drug therapy; Z79.82 Long term (current) use of aspirin; Z87.891 Personal history of nicotine dependence; Z91.041 Radiographic dye allergy status; Z88.5 Allergy status to narcotic agent; Z88.0 Allergy status to penicillin; Z88.8 Allergy status to other drugs, medicaments and biological substances; Z91.048 Other nonmedicinal substance allergy status; Z86.73 Personal history of transient ischemic attack (TIA), and cerebral infarction without residual deficits; Z90.49 Acquired absence of other specified parts of digestive tract
CPT/HCPCS: 36415; 43753; 71275; 74018; 74176; 75635; 80053; 83036; 83690; 83880; 84484; 85025; 93005; 94640; 96361; 96374; 96375; 99285

== ENCOUNTER 2018-04-07 17:41 | Observation (INO) | payer OTHER ==
[2018-04-07] MEDS ORDERED: SODIUM CHLORIDE 0.9% 1,000 ML IV STA ×2 (17:52)
--- NOTE | 2018-04-07 18:00 | ED ---
General Adult HPI - General Chief complaint: Chest Pain Stated complaint: asim, chest pressure Time Seen by Provider: 04/07/18 17:52 Source: patient, RN notes reviewed, old records reviewed Mode of arrival: wheelchair Limitations: no limitations - History of Present Illness Initial comments: This is a 48-year-old male the ER for evaluation. Patient was essay for evaluation of significant short of breath and chest pain, recurrent COPD exacerbation. Patient has history of significant lung disease. Patient also has significant history of chest pain CO heart disease. Her pain before feels significant tightness and pain throughout entire chest, increased cough and congestion. No recent travel history no sick contacts or recent change in medication - Related Data Home Medications Medication Instructions Recorded Confirmed Dapagliflozin Propanediol [Farxiga] 10 mg PO DAILY 03/18/17 04/07/18 Montelukast [Singulair] 10 mg PO HS 04/16/17 04/07/18 Losartan Potassium [Cozaar] 25 mg PO QAM 06/24/17 04/07/18 Pioglitazone [Actos] 30 mg PO DAILY 09/15/17 04/07/18 Insulin Regular, Human [humulin R 10 unit SQ 09/19/17 04/07/18 U-500 Kwikpen] Gabapentin 600 mg PO TID 10/22/17 04/07/18 Insulin Regular, Human [humulin R 35 units SQ QA 10/22/17 04/07/18 U-500 Kwikpen] metFORMIN HCL [Glucophage] 1,000 mg PO AC-SUPPER 01/05/18 04/07/18 metFORMIN HCL [Glucophage] 500 mg PO AC-BID 01/05/18 04/07/18 Atorvastatin [Lipitor] 20 mg PO HS 04/07/18 04/07/18 Hydrocortisone Cream 1 applic TOPICAL DAILY PRN 04/07/18 04/07/18 [Hydrocortisone 2.5% Cream] PARoxetine [Paxil] 20 mg PO DAILY 04/07/18 04/07/18 metroNIDAZOLE 0.75% CREAM 1 applic TOPICAL DAILY PRN 04/07/18 04/07/18 [Metrocream] Allergies Allergy/AdvReac Type Severity Reaction Status Date / Time adhesive Allergy red skin Verified 04/07/18 18:26 Iodinated Contrast- Oral and Allergy Itching Verified 04/07/18 18:26 IV Dye [Iodinated Contrast Media - IV Dye] metoprolol Allergy Chest Pain Verified 04/07/18 18:26 prednisone Allergy Rapid Verified 04/07/18 18:26 Heart Rate verapamil Allergy Anaphylaxis Verified 04/07/18 18:26 celecoxib [From Celebrex] AdvReac CAUSES GI Verified 04/07/18 18:26 BLEEDING cephalexin monohydrate AdvReac Vomiting Verified 04/07/18 18:26 [From Keflex] diphenhydramine AdvReac arm burned Verified 04/07/18 18:26 [From Benadryl] when given IV hydrocodone AdvReac Nausea & Verified 04/07/18 18:26 Vomiting Penicillins AdvReac Nausea & Verified 04/07/18 18:26 Vomiting tramadol AdvReac Nausea & Verified 04/07/18 18:26 Vomiting Review of Systems ROS Statement: Those systems with pertinent positive or pertinent negative responses have been documented in the HPI. ROS Other: All systems not noted in ROS Statement are negative. Past Medical History Past Medical History: Asthma, Chest Pain / Angina, CVA/TIA, Diabetes Mellitus, Fibromyalgia, GERD/Reflux, Hyperlipidemia, Osteoarthritis (OA), Skin Disorder, Sleep Apnea/CPAP/BIPAP, Thyroid Disorder Additional Past Medical History / Comment(s): hx migraines, TIA 2016-weakness in hands and legs, two bulging disks, degenerative disk disease, neuopathy- upper and lower extremeties, uses walker, psoriasis, nodules on thyroid, bursitis left hip , malfunctioning heart valve, SVT History of Any Multi-Drug Resistant Organisms: None Reported Past Surgical History: Adenoidectomy, Cholecystectomy, EPS, Heart Catheterization, Orthopedic Surgery, Tonsillectomy Additional Past Surgical History / Comment(s): D&C, carpal tunnel surgery left , LT ARM SX FOR "PINCHED NERVE", LT THUMB TRIGGER FINGER, rae neuroma removed left foot, cardiac ablation Past Anesthesia/Blood Transfusion Reactions: Previous Problems w/ Anesthesia, Motion Sickness Additional Past Anesthesia/Blood Transfusion Reaction / Comment(s): difficulty waking from anesthesia Past Psychological History: Anxiety, Depression, Panic Disorder Smoking Status: Former smoker Past Alcohol Use History: None Reported Past Drug Use History: None Reported - Past Family History Father Family Medical History: Cancer Additional Family Medical History / Comment(s): skin Mother Family Medical History: Diabetes Mellitus, Hypertension, Osteoarthritis (OA) Additional Family Medical History / Comment(s): MURMUR Sister(s) Family Medical History: Cancer Additional Family Medical History / Comment(s): ovarian General Exam Limitations: no limitations General appearance: alert, in no apparent distress, anxious Head exam: Present: atraumatic, normocephalic, normal inspection Eye exam: Present: normal appearance, PERRL, EOMI. Absent: scleral icterus, conjunctival injection, periorbital swelling ENT exam: Present: normal exam, mucous membranes moist Neck exam: Present: normal inspection. Absent: tenderness, meningismus, lymphadenopathy Respiratory exam: Present: respiratory distress, wheezes, accessory muscle use, decreased breath sounds, prolonged expiratory. Absent: rales, rhonchi, stridor Cardiovascular Exam: Present: normal rhythm, tachycardia, normal heart sounds. Absent: systolic murmur, diastolic murmur, rubs, gallop, clicks GI/Abdominal exam: Present: soft, normal bowel sounds. Absent: distended, tenderness, guarding, rebound, rigid Extremities exam: Present: normal inspection, full ROM, normal capillary refill. Absent: tenderness, pedal edema, joint swelling, calf tenderness Back exam: Present: normal inspection Neurological exam: Present: alert, oriented X3, CN II-XII intact Psychiatric exam: Present: normal affect, normal mood Skin exam: Present: warm, dry, intact, normal color. Absent: rash Course Vital Signs 04/07/18 04/07/18 04/07/18 17:43 18:00 19:40 Temperature 98.0 F Pulse Rate 115 H 96 Pulse Rate [ 104 H Scheduling Administrator ] Respiratory 20 16 Rate Blood Pressure 124/84 126/80 O2 Sat by Pulse 100 98 Oximetry 04/07/18 04/07/18 20:41 20:55 Temperature Pulse Rate 97 102 H Pulse Rate [ Scheduling Administrator ] Respiratory Rate Blood Pressure O2 Sat by Pulse Oximetry - Reevaluation(s) Reevaluation #1: 04/07/18 21:06 Patient does have mild improvement with pain control, EKG Findings - EKG Comments: EKG Findings:: EKG shows sinus tachycardia rate 108, MA 144, QRS 72, QTc 427 Medical Decision Making - Medical Decision Making 48 female the ER for evaluation. Patient resents ER for evaluation of chest pain, Cockman chest pain exacerbation, COPD exacerbation will admit for evaluation and treatment - Lab Data Result diagrams: 04/07/18 18:16 04/07/18 18:16 Lab Results 04/07/18 04/07/18 04/07/18 Range/Units 18:16 18:16 18:16 WBC 8.6 (3.8-10.6) k/uL RBC 4.64 (3.80-5.40) m/uL Hgb 11.2 L (11.4-16.0) gm/dL Hct 36.2 (34.0-46.0) % MCV 78.0 L (80.0-100.0) fL MCH 24.1 L (25.0-35.0) pg MCHC 30.9 L (31.0-37.0) g/dL RDW 16.7 H (11.5-15.5) % Plt Count 221 (150-450) k/uL Neutrophils % 77 % Lymphocytes % 16 % Monocytes % 3 % Eosinophils % 3 % Basophils % 0 % Neutrophils # 6.6 (1.3-7.7) k/uL Lymphocytes # 1.4 (1.0-4.8) k/uL Monocytes # 0.3 (0-1.0) k/uL Eosinophils # 0.2 (0-0.7) k/uL Basophils # 0.0 (0-0.2) k/uL Hypochromasia Slight Anisocytosis Slight Microcytosis Slight PT (9.0-12.0) sec INR (<1.2) APTT (22.0-30.0) sec Sodium 138 (137-145) mmol/L Potassium 5.3 H (3.5-5.1) mmol/L Chloride 105 (98-107) mmol/L Carbon Dioxide 24 (22-30) mmol/L Anion Gap 9 mmol/L BUN 21 H (7-17) mg/dL Creatinine 0.90 (0.52-1.04) mg/dL Est GFR (CKD-EPI)AfAm 87 (>60 ml/min/1.73 sqM) Est GFR (CKD-EPI)NonAf 75 (>60 ml/min/1.73 sqM) Glucose 214 H (74-99) mg/dL Calcium 9.4 (8.4-10.2) mg/dL Phosphorus 4.1 (2.5-4.5) mg/dL Magnesium 1.6 (1.6-2.3) mg/dL Total Bilirubin 0.8 (0.2-1.3) mg/dL AST 35 (14-36) U/L ALT 21 (9-52) U/L Alkaline Phosphatase 72 (38-126) U/L Total Creatine Kinase 38 (30-135) U/L CK-MB (CK-2) 0.4 (0.0-2.4) ng/mL CK-MB (CK-2) Rel Index 1.1 Troponin I <0.012 (0.000-0.034) ng/mL Total Protein 7.0 (6.3-8.2) g/dL Albumin 3.9 (3.5-5.0) g/dL TSH 0.278 L (0.465-4.680) mIU/L 04/07/18 Range/Units 18:16 WBC (3.8-10.6) k/uL RBC (3.80-5.40) m/uL Hgb (11.4-16.0) gm/dL Hct (34.0-46.0) % MCV (80.0-100.0) fL MCH (25.0-35.0) pg MCHC (31.0-37.0) g/dL RDW (11.5-15.5) % Plt Count (150-450) k/uL Neutrophils % % Lymphocytes % % Monocytes % % Eosinophils % % Basophils % % Neutrophils # (1.3-7.7) k/uL Lymphocytes # (1.0-4.8) k/uL Monocytes # (0-1.0) k/uL Eosinophils # (0-0.7) k/uL Basophils # (0-0.2) k/uL Hypochromasia Anisocytosis Microcytosis PT 10.2 (9.0-12.0) sec INR 1.0 (<1.2) APTT 22.5 (22.0-30.0) sec Sodium (137-145) mmol/L Potassium (3.5-5.1) mmol/L Chloride (98-107) mmol/L Carbon Dioxide (22-30) mmol/L Anion Gap mmol/L BUN (7-17) mg/dL Creatinine (0.52-1.04) mg/dL Est GFR (CKD-EPI)AfAm (>60 ml/min/1.73 sqM) Est GFR (CKD-EPI)NonAf (>60 ml/min/1.73 sqM) Glucose (74-99) mg/dL Calcium (8.4-10.2) mg/dL Phosphorus (2.5-4.5) mg/dL Magnesium (1.6-2.3) mg/dL Total Bilirubin (0.2-1.3) mg/dL AST (14-36) U/L ALT (9-52) U/L Alkaline Phosphatase (38-126) U/L Total Creatine Kinase (30-135) U/L CK-MB (CK-2) (0.0-2.4) ng/mL CK-MB (CK-2) Rel Index Troponin I (0.000-0.034) ng/mL Total Protein (6.3-8.2) g/dL Albumin (3.5-5.0) g/dL TSH (0.465-4.680) mIU/L - Radiology Data Radiology results: report reviewed (Chest x-ray negative CTA chest negative), image reviewed Critical Care Time Critical Care Time: Yes Total Critical Care Time: 31 Disposition Clinical Impression: Chest pain, Atypical chest pain, Acute exacerbation of COPD with asthma, Dyspnea Disposition: ADMITTED IP TO THIS [facility] Condition: Undetermined Instructions: Chest Pain (ED) Referrals: Cuca Iqbal MD [Primary Care Provider] - 1-2 days
[2018-04-07 18:35] LABS: Anisocytosis Slight; Basophils % (A) 0 %; Eosinophils # (A) 0.2 k/uL (0-0.7); Eosinophils % (A) 3 %; HCT 36.2 % (34.0-46.0); HGB 11.2 gm/dL (11.4-16.0); Hypochromasia Slight; Lymphocytes # (A) 1.4 k/uL (1.0-4.8); Lymphocytes % (A) 16 %; MCH 24.1 pg (25.0-35.0); MCHC 30.9 g/dL (31.0-37.0); Mean Platelet Volume 6.7; Microcytosis Slight; Monocytes # (A) 0.3 k/uL (0-1.0); Monocytes % (A) 3 %; Neutrophils # (A) 6.6 k/uL (1.3-7.7); Neutrophils % (A) 77 %; Platelet Count 221 k/uL (150-450); RBC 4.64 m/uL (3.80-5.40); RDW 16.7 % (11.5-15.5); WBC 8.6 k/uL (3.8-10.6)
[2018-04-07 18:48] LABS: Albumin 3.9 g/dL (3.5-5.0); Calcium 9.4 mg/dL (8.4-10.2); Magnesium 1.6 mg/dL (1.6-2.3); Partial Thromboplastin Time 22.5 sec (22.0-30.0); Phosphorus 4.1 mg/dL (2.5-4.5); Prothrombin Time 10.2 sec (9.0-12.0); Total Bilirubin 0.8 mg/dL (0.2-1.3)
[2018-04-07 18:49] LABS: Creatine Kinase 38 U/L (30-135)
[2018-04-07 18:53] LABS: Potassium 5.3 mmol/L (3.5-5.1)
[2018-04-07 19:01] LABS: Creatine Kinase MB 0.4 ng/mL (0.0-2.4); Troponin I <0.012 ng/mL (0.000-0.034)
--- NOTE | 2018-04-07 19:04 | XR ---
EXAMINATION: XR chest 2V DATE AND TIME: 04/07/2018 6:31 PM ORDERING PROVIDER: Narendra Das DO CLINICAL INDICATION: Weakness TECHNIQUE: PA and lateral COMPARISON: 10/22/2017 DESCRIPTION: The overlying soft tissues are prominent. The lungs are clear. The pleural spaces are ne gative. The cardiac silhouette is unremarkable. Mediastinal silhouette also unremarkable. Bones and s oft tissues negative for acute findings. IMPRESSION: No acute process.
[2018-04-07] MEDS ORDERED: methylPREDNISolone SOD SUCCI 125 MG/2 ML VIAL IV STA (19:32)
[2018-04-07] MEDS ORDERED: IPRATROPIUM-ALBUTEROL 3 ML NEB INHALATION STA (19:32)
[2018-04-07] MEDS ORDERED: NITROGLYCERIN SL TABS 0.4 MG TAB SUBLINGUAL PRN (21:08)
--- NOTE | 2018-04-07 21:19 | CT ---
EXAMINATION TYPE: CT angio chest with contrast and with 3-D reconstruction renderings DATE OF EXAM: 04/07/2018 8:28 PM COMPARISON: December 10, 2016 HISTORY: Chest pain CT DLP: 895.1 mGycm Automated exposure control for dose reduction was used. CONTRAST: CTA scan of the thorax is performed with IV Contrast, patient injected with 80 mL of Isovue 370, pulmonary embolism protocol. 3-D reconstructions. FINDINGS: LUNGS: The lungs are grossly clear, there is no concerning parenchymal mass or nodule identified. T here is no pleural effusion or pneumothorax seen. The tracheobronchial tree is patent. MEDIASTINUM: There is moderate enhancement of the pulmonary artery and its branches; there is no CT e vidence for pulmonary embolism. There are no greater than 1 cm hilar or mediastinal lymph nodes. The re is mild cardiomegaly. Coronary calcifications are noted. No pericardial effusion is seen. OTHER: No additional significant abnormality is seen. IMPRESSION: 1. NO ACUTE PROCESS. 2. MILD CARDIOMEGALY WITH CORONARY CALCIFICATIONS NOTED.
[2018-04-07] MEDS: MORPHINE SULFATE 4 MG/ML SYRINGE IV PRN (23:11)
[2018-04-07 23:14] VITALS: BMI 43.6
[2018-04-07] MEDS: methylPREDNISolone SOD SUCCI 125 MG/2 ML VIAL IV SCH (23:19)
[2018-04-07] MEDS ORDERED: INSULIN REGULAR 100 UNIT/ML VIAL SQ SCH (23:30)
[2018-04-07] MEDS ORDERED: HYDROCORTISONE 1% CREAM 30 GM TUBE TOPICAL PRN (23:30)
[2018-04-07] MEDS ORDERED: ATORVASTATIN 20 MG TAB PO SCH (23:30)
[2018-04-07] MEDS ORDERED: IPRATROPIUM-ALBUTEROL 3 ML NEB INHALATION PRN (23:34)
[2018-04-07 23:44] LABS: Glucose,Whole Blood 216 mg/dL (75-99)
[2018-04-07] MEDS ORDERED: metFORMIN 500 MG TAB PO SCH (23:45)
[2018-04-07] MEDS ORDERED: MONTELUKAST 10 MG TAB PO SCH (23:45)
[2018-04-08] MEDS: GABAPENTIN 300 MG CAP PO SCH ×2 (00:50→12:26)
[2018-04-08 00:58] LABS: Creatine Kinase 32 U/L (30-135)
[2018-04-08 01:09] LABS: Creatine Kinase MB 0.3 ng/mL (0.0-2.4); Troponin I <0.012 ng/mL (0.000-0.034)
[2018-04-08] MEDS: MORPHINE SULFATE 4 MG/ML SYRINGE IV PRN ×2 (02:01→06:32)
[2018-04-08] MEDS: methylPREDNISolone SOD SUCCI 125 MG/2 ML VIAL IV SCH ×2 (05:29→12:28)
[2018-04-08 06:51] LABS: Glucose,Whole Blood 235 mg/dL (75-99)
[2018-04-08] MEDS: IPRATROPIUM-ALBUTEROL 3 ML NEB INHALATION SCH ×3 (07:19→15:44)
[2018-04-08 07:25] LABS: Creatine Kinase 30 U/L (30-135)
[2018-04-08 07:26] LABS: Cholesterol 178 mg/dL (<200); HDL Cholesterol 39 mg/dL (40-60); LDL Cholesterol,Calculated 123 mg/dL (0-99); Triglycerides 79 mg/dL (<150)
[2018-04-08 07:37] LABS: Creatine Kinase MB 0.5 ng/mL (0.0-2.4); Troponin I <0.012 ng/mL (0.000-0.034)
[2018-04-08] MEDS: SODIUM CHLORIDE 0.9% 1,000 ML IV SCH ×2 (08:00→15:49)
[2018-04-08 08:01] VITALS: RESP 18
[2018-04-08] MEDS ORDERED: DOBUTamine DRIP for NUC MED 500 MG in DEXTROSE/WATER 1 250ML.BAG IV ONE (08:35)
[2018-04-08] MEDS ORDERED: ASPIRIN 81 MG PO SCH (09:00)
[2018-04-08] MEDS ORDERED: INSULIN REGULAR 100 UNIT/ML VIAL SQ SCH (09:00)
[2018-04-08] MEDS ORDERED: PIOGLITAZONE 30 MG TAB PO SCH (09:00)
[2018-04-08] MEDS ORDERED: ASPIRIN 325 MG TAB PO SCH (09:00)
[2018-04-08] MEDS ORDERED: Dapagliflozin Propanediol [Farxiga] 10 MG PO SCH (09:00)
[2018-04-08] MEDS ORDERED: LOSARTAN 25 MG TAB PO SCH (09:00)
[2018-04-08] MEDS ORDERED: PARoxetine 20 MG TAB PO SCH (09:00)
--- NOTE | 2018-04-08 11:09 | ECHOF ---
Referral Reason:cp MEASUREMENTS -------- HEIGHT: 162.6 cm WEIGHT: 107.5 kg BP: 130/85 RVIDd: 3.7 cm (< 3.3) IVSd: 1.1 cm (0.6 - 1.1) LVIDd: 4.6 cm (3.9 - 5.3) LVPWd: 1.1 cm (0.6 - 1.1) IVSs: 1.3 cm LVIDs: 2.3 cm LVPWs: 1.3 cm LAESV Index (A-L): 26.41 ml/m Ao Diam: 3.9 cm (2.0 - 3.7) AV Cusp: 1.7 cm (1.5 - 2.6) LA Diam: 2.8 cm (2.7 - 3.8) MV E Shaheed: 1.43 m/s MV DecT: 192 ms MV A Shaheed: 0.01 m/s MV E/A Ratio: 273.04 RAP: 5.00 mmHg RVSP: 26.57 mmHg FINDINGS -------- Resting tachycardia (HR>100bpm). This was a technically difficult study with suboptimal views. The left ventricular size is normal. There is borderline concentric left ventricular hypertrophy. Overall left ventricular systolic function is normal with, an EF between 55 - 60 %. The right ventricle is mildly enlarged. Normal LA size by volume 22+/-6 ml/m2. The right atrium was not well visualized. 4ml of Lumason was utilized for enhancement of images. There is mild aortic valve sclerosis. There is no evidence of aortic regurgitation. There is no e vidence of aortic stenosis. The mitral valve leaflets are mildly thickened. There is trace to mild mitral regurgitation. Trace tricuspid regurgitation present. Right ventricular systolic pressure is normal at < 35 mmHg. There is no evidence of pulmonary hypertension. The pulmonic valve was not well visualized. The aortic root is mildy dilated, up to 3.9 cm. IVC Not well visulized. There is no pericardial effusion. CONCLUSIONS -------- 1. Resting tachycardia (HR>100bpm). 2. This was a technically difficult study with suboptimal views. 3. The left ventricular size is normal. 4. There is borderline concentric left ventricular hypertrophy. 5. Overall left ventricular systolic function is normal with, an EF between 55 - 60 %. 6. The right ventricle is mildly enlarged. 7. Normal LA size by volume 22+/-6 ml/m2. 8. The right atrium was not well visualized. 9. 4ml of Lumason was utilized for enhancement of images. 10. There is mild aortic valve sclerosis. 11. There is no evidence of aortic stenosis. 12. The mitral valve leaflets are mildly thickened. 13. There is trace to mild mitral regurgitation. 14. Trace tricuspid regurgitation present. 15. Right ventricular systolic pressure is normal at < 35 mmHg. 16. There is no evidence of pulmonary hypertension. 17. The pulmonic valve was not well visualized. 18. The aortic root is mildy dilated, up to 3.9 cm. 19. IVC Not well visulized. 20. There is no pericardial effusion. VIDEO CAMERA OPERATOR: Lucho Rivas RDCS
--- NOTE | 2018-04-08 11:21 | P.CRDCN ---
History of Present Illness History of present illness: Mrs. Andrade is a pleasant 48-year-old female past medical history significant for diabetes mellitus, dyslipidemia, GERD, fibromyalgia, ashtma and obstructive sleep apnea. She denies coronary artery disease and follows with a health safety coordinator out of [place] Dr. Paiz. We have been asked to see her in consultation for chest pain. She states for approximately the last 3 days she has felt increased shortness of breath and tightness in the mid-sternal region. She denies palpitations, nausea, vomiting, dizziness or diaphoresis. Since coming to the hospital she has been receiving breathing treatments and has started coughing and bringing up clear sputum. The tightness in her chest is associated with taking deep breaths and with cough. The pain has decreased since admission but is still evident when she coughs. She used to see Dr. Chang in the office and has undergone testing for complaints of palpitations, event monitoring has been negative for arrhythmia. Most recent dobutamine stress echocardiogram performed in the office in 2014 negative for stress- induced cardiac ischemia, most recent echocardiogram performed 2015 reveals a normal ejection fraction with no evidence of valvular heart disease. She underwent cardiac catheterization 2014 which revealed normal coronary arteries. EKG on arrival reveals sinus tachycardia heart rate went away with no evidence of acute ST or T wave abnormalities noted. Chest x-ray is negative for an acute cardiopulmonary process. Chest CTA is negative for pulmonary embolism with mild cardiomegaly and coronary calcifications noted. Laboratory data reviewed, hemoglobin 11.2, platelets 221, sodium 138, potassium 5.3, magnesium 1.6, cardiac enzymes negative 3, LDL 123, HDL 39, triglycerides 79 total cholesterol 178 and TSH 0.278. Current cardiac medications include atorvastatin 20 mg daily and losartan 25 mg daily. She also takes Glucophage, Actos, Paxil, Singulair, insulin, gabapentin and farxiga. Review of Systems At the time of my exam: CONSTITUTIONAL: Denies fever. Denies chills. EYES: Denies blurred vision. Denies vision changes. Denies eye pain. EARS, NOSE, MOUTH & THROAT: Denies headache. Denies sore throat. Denies ear pain. CARDIOVASCULAR: Complains of pleuritic chest pain. Denies shortness of breath. Denies orthopnea. Denies PND. Denies palpitations. RESPIRATORY: Complains of cough. GASTROINTESTINAL: Denies abdominal pain. Denies diarrhea. Denies constipation. Denies nausea. Denies vomiting. MUSCULOSKELETAL: Denies myalgias. INTEGUMENTARY: Denies pruitis. Denies rash. NEUROLOGIC: Denies numbness. Denies tingling. Denies weakness. PSYCHIATRIC: Denies anxiety. Denies depression. ENDOCRINE: Denies fatigue. Denies weight change. Denies polydipsia. Denies polyurina. GENITOURINARY: Denies burning, hematuria or urgency with micturation. HEMATOLOGIC: Denies history of anemia. Denies bleeding. Past Medical History Past Medical History: Asthma, Chest Pain / Angina, CVA/TIA, Diabetes Mellitus, Fibromyalgia, GERD/Reflux, Hyperlipidemia, Osteoarthritis (OA), Skin Disorder, Sleep Apnea/CPAP/BIPAP, Thyroid Disorder Additional Past Medical History / Comment(s): hx migraines, TIA 2015-weakness in hands and legs, two bulging disks, degenerative disk disease, neuopathy- upper and lower extremeties, uses walker, psoriasis, nodules on thyroid, bursitis left hip , malfunctioning heart valve, SVT History of Any Multi-Drug Resistant Organisms: None Reported Past Surgical History: Adenoidectomy, Cholecystectomy, EPS, Heart Catheterization, Orthopedic Surgery, Tonsillectomy Additional Past Surgical History / Comment(s): D&C, carpal tunnel surgery left , LT ARM SX FOR "PINCHED NERVE", LT THUMB TRIGGER FINGER, rae neuroma removed left foot, cardiac ablation Past Anesthesia/Blood Transfusion Reactions: Previous Problems w/ Anesthesia, Motion Sickness Additional Past Anesthesia/Blood Transfusion Reaction / Comment(s): difficulty waking from anesthesia Past Psychological History: Anxiety, Depression, Panic Disorder Additional Psychological History / Comment(s): pt is lives alone. her sister is her manager home healthcare. Smoking Status: Former smoker Past Alcohol Use History: None Reported Additional Past Alcohol Use History / Comment(s): Patient started smoking at age 13 one half pack per day and quit around 1991 Past Drug Use History: None Reported Additional Drug Use History / Comment(s): . - Past Family History Father Family Medical History: Cancer Additional Family Medical History / Comment(s): skin Mother Family Medical History: Diabetes Mellitus, Hypertension, Osteoarthritis (OA) Additional Family Medical History / Comment(s): MURMUR Sister(s) Family Medical History: Cancer Additional Family Medical History / Comment(s): ovarian Medications and Allergies Home Medications Medication Instructions Recorded Confirmed Type Dapagliflozin Propanediol [Farxiga] 10 mg PO DAILY 03/18/17 04/07/18 History Montelukast [Singulair] 10 mg PO HS 04/16/17 04/07/18 History Losartan Potassium [Cozaar] 25 mg PO QAM 06/24/17 04/07/18 History Pioglitazone [Actos] 30 mg PO DAILY 09/15/17 04/07/18 History Insulin Regular, Human [humulin R 10 unit SQ HS 09/19/17 04/07/18 History U-500 Kwikpen] Gabapentin 600 mg PO TID 10/22/17 04/07/18 History Insulin Regular, Human [humulin R 35 units SQ QAM 10/22/17 04/07/18 History U-500 Kwikpen] metFORMIN HCL [Glucophage] 1,000 mg PO AC-SUPPER 01/05/18 04/07/18 History metFORMIN HCL [Glucophage] 500 mg PO AC-BID 01/05/18 04/07/18 History Atorvastatin [Lipitor] 20 mg PO HS 04/07/18 04/07/18 History Hydrocortisone Cream 1 applic TOPICAL DAILY PRN 04/07/18 04/07/18 History [Hydrocortisone 2.5% Cream] PARoxetine [Paxil] 20 mg PO DAILY 04/07/18 04/07/18 History metroNIDAZOLE 0.75% CREAM 1 applic TOPICAL DAILY PRN 04/07/18 04/07/18 History [Metrocream] Allergies Allergy/AdvReac Type Severity Reaction Status Date / Time adhesive Allergy red skin Verified 04/07/18 18:26 Iodinated Contrast- Oral and Allergy Itching Verified 04/07/18 18:26 IV Dye [Iodinated Contrast Media - IV Dye] metoprolol Allergy Chest Pain Verified 04/07/18 18:26 prednisone Allergy Rapid Verified 04/07/18 18:26 Heart Rate verapamil Allergy Anaphylaxis Verified 04/07/18 18:26 celecoxib [From Celebrex] AdvReac CAUSES GI Verified 04/07/18 18:26 BLEEDING cephalexin monohydrate AdvReac Vomiting Verified 04/07/18 18:26 [From Keflex] diphenhydramine AdvReac arm burned Verified 04/07/18 18:26 [From Benadryl] when given IV hydrocodone AdvReac Nausea & Verified 04/07/18 18:26 Vomiting Penicillins AdvReac Nausea & Verified 04/07/18 18:26 Vomiting tramadol AdvReac Nausea & Verified 04/07/18 18:26 Vomiting Physical Exam Vitals: Vital Signs Temp Pulse Pulse Pulse Resp BP BP 04/08/18 07:30 97.5 F L 121 H 18 130/85 04/08/18 07:28 80 14 04/08/18 07:19 84 04/08/18 03:45 97.5 F L 117 H 18 117/64 04/08/18 03:18 84 16 04/08/18 00:00 16 04/07/18 22:42 97.7 F 119 H 16 132/73 04/07/18 22:25 97.9 F 118 H 18 135/81 04/07/18 21:07 98.0 F 111 H 20 140/68 04/07/18 20:55 102 H 04/07/18 20:41 97 04/07/18 19:40 96 16 126/80 04/07/18 18:00 104 H 04/07/18 17:43 98.0 F 115 H 20 124/84 Pulse Ox 04/08/18 07:30 95 04/08/18 07:28 04/08/18 07:19 04/08/18 03:45 92 L 04/08/18 03:18 04/08/18 00:00 04/07/18 22:42 97 04/07/18 22:25 96 04/07/18 21:07 99 04/07/18 20:55 04/07/18 20:41 04/07/18 19:40 98 04/07/18 18:00 04/07/18 17:43 100 Intake and Output 04/07/18 04/08/18 04/08/18 22:59 06:59 14:59 Other: Voiding Method Toilet # Voids 2 Weight 107.9 kg Blood pressure 130/85 heart rate 80-120 function rate on telemetry afebrile maintaining oxygen saturation on room air GENERAL: This is a 48-year-old female in no apparent distress at the time of my examination. Morbidly obese. HEENT: Head is atraumatic, normocephalic. Pupils are equal, round. Sclerae anicteric. Conjunctivae are clear. Mucous membranes of the mouth are moist. Neck is supple. There is no jugular venous distention. No carotid bruit is heard. LUNGS: Clear to auscultation no wheezes, rales or rhonchi. No chest wall tenderness is noted on palpation or with deep breathing. HEART: Regular rate and rhythm without murmurs, rubs or gallops. S1 and S2 heard. Distant heart sounds. ABDOMEN: Soft, nontender. Bowel sounds are heard. No organomegaly noted. EXTREMITIES: No evidence of peripheral edema and no calf tenderness noted. VASCULAR: Radial and dorsalis pedis pulses palpated, no evidence of clubbing. NEUROLOGIC: Patient is awake, alert and oriented x3. Results 04/07/18 18:16 04/07/18 18:16 Cardiac Enzymes 04/07/18 04/07/18 04/08/18 Range/Units 18:16 18:16 00:15 AST 35 (14-36) U/L CK-MB (CK-2) 0.4 0.3 (0.0-2.4) ng/mL Troponin I <0.012 <0.012 (0.000-0.034) ng/mL 04/08/18 Range/Units 06:28 AST (14-36) U/L CK-MB (CK-2) 0.5 (0.0-2.4) ng/mL Troponin I <0.012 (0.000-0.034) ng/mL Coagulation 04/07/18 Range/Units 18:16 PT 10.2 (9.0-12.0) sec APTT 22.5 (22.0-30.0) sec Lipids 04/08/18 Range/Units 06:28 Triglycerides 79 (<150) mg/dL Cholesterol 178 (<200) mg/dL HDL Cholesterol 39 L (40-60) mg/dL CBC 04/07/18 Range/Units 18:16 WBC 8.6 (3.8-10.6) k/uL RBC 4.64 (3.80-5.40) m/uL Hgb 11.2 L (11.4-16.0) gm/dL Hct 36.2 (34.0-46.0) % Plt Count 221 (150-450) k/uL Comprehensive Metabolic Panel 04/07/18 Range/Units 18:16 Sodium 138 (137-145) mmol/L Potassium 5.3 H (3.5-5.1) mmol/L Chloride 105 (98-107) mmol/L Carbon Dioxide 24 (22-30) mmol/L BUN 21 H (7-17) mg/dL Creatinine 0.90 (0.52-1.04) mg/dL Glucose 214 H (74-99) mg/dL Calcium 9.4 (8.4-10.2) mg/dL AST 35 (14-36) U/L ALT 21 (9-52) U/L Alkaline Phosphatase 72 (38-126) U/L Total Protein 7.0 (6.3-8.2) g/dL Albumin 3.9 (3.5-5.0) g/dL Current Medications Generic Name Dose Route Start Last Admin Trade Name Freq PRN Reason Stop Dose Admin Albuterol/Ipratropium 3 ml 04/08/18 08:00 04/08/18 07:19 Duoneb 0.5 Mg-3 Mg/3 Ml Soln INHALATION 3 ml RT-QID MICHAEL Administration Albuterol/Ipratropium 3 ml 04/07/18 23:34 Duoneb 0.5 Mg-3 Mg/3 Ml Soln INHALATION RT-Q2H PRN Shortness Of Breath Or Wheezing Aspirin 81 mg 04/08/18 09:00 Aspirin PO DAILY [facility] Atorvastatin Calcium 20 mg 04/07/18 23:30 04/08/18 00:49 Lipitor PO 20 mg HS MICHAEL Administration Gabapentin 600 mg 04/07/18 23:30 04/08/18 00:50 Neurontin PO 600 mg TID MICHAEL Administration Hydrocortisone 1 applic 04/07/18 23:30 Hydrocortisone 1% Cream TOPICAL DAILY PRN Skin Irritation Sodium Chloride 1,000 mls @ 100 mls/hr 04/07/18 21:15 Saline 0.9% IV .Q10H [facility] Dobutamine HCl/Dextrose 500 mg 250 mls @ 32.37 mls/hr 04/08/18 08:35 / IV Solution IV 04/08/18 16:18 [id number] ONE Protocol 10 MCG/KG/MIN Insulin Aspart 0 unit 04/08/18 07:30 Novolog SQ ACHS MICHAEL Protocol Insulin Human Regular 10 unit 04/07/18 23:30 04/08/18 00:50 Humulin R SQ 10 unit HS MICHAEL Administration Insulin Human Regular 35 unit 04/08/18 09:00 Humulin R SQ QAM MICHAEL Losartan Potassium 25 mg 04/08/18 09:00 Cozaar PO QAM MICHAEL Methylprednisolone Sodium Succinate 60 mg 04/08/18 00:00 04/08/18 05:29 Solu-Medrol IV 60 mg Q6HR MICHAEL Administration Metronidazole 1 applic 04/07/18 23:30 Metrocream TOPICAL DAILY PRN Skin Irritation Montelukast Sodium 10 mg 04/07/18 23:45 04/08/18 00:50 Singulair PO 10 mg HS MICHAEL Administration Morphine Sulfate 4 mg 04/07/18 21:08 04/08/18 06:32 Morphine Sulfate (Inj) IV 4 mg Q5M PRN Administration Chest Pain Nitroglycerin 0.4 mg 04/07/18 21:08 Nitrostat SUBLINGUAL Q5M PRN Chest Pain Dapagliflozin 10 mg 04/08/18 09:00 Propanediol [Farxiga PO ] 10 Mg DAILY MICHAEL Paroxetine HCl 20 mg 04/08/18 09:00 Paxil PO DAILY MICHAEL Intake and Output 04/07/18 04/08/18 04/08/18 22:59 06:59 14:59 Other: Voiding Method Toilet # Voids 2 Weight 107.9 kg 04/07/18 18:16 04/07/18 18:16 Assessment and Plan Assessment: ASSESSMENT Pleuritic chest pain with coughing Hypertension Dyslipidemia Asthma History of high atrial tachycardia s/p EP study intolerant to lopressor and verapamil PLAN Obtain 2D echocardiogram and doppler study to assess cardiac structure and function. Perform dobutamine stress echocardiogram to assess for stress induced cardiac ischemic changes. If stress test is normal she is stable from a cardiac perspective. Ongoing medical management of respiratory illness. Thank you kindly for this consultation. The above impression and plan of care have been discussed and directed by the signing physician. Katherine Reilly, nurse practitioner, acting as scribe for signing physician.
[2018-04-08 11:49] VITALS: BP 138/83; PULSE 118; TEMP 97.8
[2018-04-08] MEDS: INSULIN ASPART 100 UNIT/ML 1 ML 10 ML VIAL SQ SCH ×2 (12:04→12:27)
[2018-04-08 12:12] LABS: Glucose,Whole Blood 228 mg/dL (75-99)
--- NOTE | 2018-04-08 12:16 | ECHOS ---
STRESS ECHOCARDIOGRAM BASELINE HEART RATE: 115 BASELINE BLOOD PRESSURE: 150/70 MAXIMUM HEART RATE: 151 MAXIMUM BLOOD PRESSURE: 170/71 85% MPHR: 145 100% MPHR: 170 MAXIMUM STAGE REACHED: I TOTAL EXERCISE TIME: 4:08 INDICATION: Shortness of breath. CLINICAL INFORMATION: Baseline EKG shows sinus rhythm, normal axis, normal intervals. Patient was given intravenous dobutamine over a period of 4 minutes as per protocol, achieving 88% of predicted maximal heart rate without chest pain or diagnostic ST-segment depression. Baseline echo shows normal left ventricular size, wall motion, systolic function. Post dobutamine infusion, there is normal hyperdynamic response of all segments of myocardium noted. CONCLUSION: 1. Negative stress test by EKG criteria. 2. Negative dobutamine echo. MMODL / IJN: [id number] /
--- NOTE | 2018-04-08 16:36 | P.HPIM ---
History of Present Illness 48-year-old female came in with comments of substernal pressure-like chest pain which is still there which is moderate in severity. Had some pleuritic competent because of which patient had a CAT scan of the chest which did not show any pneumonia, pulmonary embolism, any artery dissection. Patient has a for Sinemet abdominal that continues him as per the patient history. Patient was evaluated by cardiology patient is a normal stress test rule out acute coronary syndromes troponins were negative EKG showed sinus tachycardia. Patient was started on systemic steroids because she was comparing of shortness of breath although patient does not have any wheezing will not require any system steroids patient does have history of COPD continues to smoke extensive counseling regarding this was provided stomach steroids will be disc. Patient will have sinus tachycardia and she blames it on systemic steroids whenever she takes systemic steroids she'll have this tachycardia. Her TSH is bit low because of which obtained a free T4 which is within normal limits patient has not left thyroid which is being evaluated as an outpatient by endocrinology. Patient has 6 euthyroid syndrome patient will require repeat TSH in about a month. Patient the was also found to have submandibular lymphadenopathy which is being evaluated as an outpatient with an ultrasound for by primary care physician. Although there is no significant lymphadenopathy in the CAT scans of the chest. Patient is bit obese does have sleep apnea and uses CPAP machine at home. Review of Systems REVIEW OF SYSTEMS: CONSTITUTIONAL: No fever, no malaise, no fatigue. HEENT: No recent visual problems or hearing problems. Denied any sore throat. CARDIOVASCULAR: No orthopnea, PND, no palpitations, no syncope. PULMONARY: no cough, no hemoptysis. GASTROINTESTINAL: No diarrhea, no nausea, no vomiting, no abdominal pain. Normoactive bowel sounds. NEUROLOGICAL: No headaches, no weakness, no numbness. HEMATOLOGICAL: Denies any bleeding or petechiae. GENITOURINARY: Denies any burning micturition, frequency, or urgency. MUSCULOSKELETAL/RHEUMATOLOGICAL: Denies any joint pain, swelling, or any muscle pain. ENDOCRINE: Denies any polyuria or polydipsia. The rest of the 14-point review of systems is negative. Past Medical History Past Medical History: Asthma, Chest Pain / Angina, CVA/TIA, Diabetes Mellitus, Fibromyalgia, GERD/Reflux, Hyperlipidemia, Osteoarthritis (OA), Skin Disorder, Sleep Apnea/CPAP/BIPAP, Thyroid Disorder Additional Past Medical History / Comment(s): hx migraines, TIA 2016-weakness in hands and legs, two bulging disks, degenerative disk disease, neuopathy- upper and lower extremeties, uses walker, psoriasis, nodules on thyroid, bursitis left hip , malfunctioning heart valve, SVT History of Any Multi-Drug Resistant Organisms: None Reported Past Surgical History: Adenoidectomy, Cholecystectomy, EPS, Heart Catheterization, Orthopedic Surgery, Tonsillectomy Additional Past Surgical History / Comment(s): D&C, carpal tunnel surgery left , LT ARM SX FOR "PINCHED NERVE", LT THUMB TRIGGER FINGER, rae neuroma removed left foot, cardiac ablation Past Anesthesia/Blood Transfusion Reactions: Previous Problems w/ Anesthesia, Motion Sickness Additional Past Anesthesia/Blood Transfusion Reaction / Comment(s): difficulty waking from anesthesia Past Psychological History: Anxiety, Depression, Panic Disorder Additional Psychological History / Comment(s): pt is lives alone. her sister is her urgent care physician. Smoking Status: Former smoker Past Alcohol Use History: None Reported Additional Past Alcohol Use History / Comment(s): Patient started smoking at age 13 one half pack per day and quit around 1991 Past Drug Use History: None Reported Additional Drug Use History / Comment(s): . - Past Family History Father Family Medical History: Cancer Additional Family Medical History / Comment(s): skin Mother Family Medical History: Diabetes Mellitus, Hypertension, Osteoarthritis (OA) Additional Family Medical History / Comment(s): MURMUR Sister(s) Family Medical History: Cancer Additional Family Medical History / Comment(s): ovarian Medications and Allergies Home Medications Medication Instructions Recorded Confirmed Type Dapagliflozin Propanediol [Farxiga] 10 mg PO DAILY 03/18/17 04/07/18 History Montelukast [Singulair] 10 mg PO HS 04/16/17 04/07/18 History Losartan Potassium [Cozaar] 25 mg PO QAM 06/24/17 04/07/18 History Pioglitazone [Actos] 30 mg PO DAILY 09/15/17 04/07/18 History Insulin Regular, Human [humulin R 10 unit SQ HS 09/19/17 04/07/18 History U-500 Kwikpen] Gabapentin 600 mg PO TID 10/22/17 04/07/18 History Insulin Regular, Human [humulin R 35 units SQ QAM 10/22/17 04/07/18 History U-500 Kwikpen] metFORMIN HCL [Glucophage] 1,000 mg PO AC-SUPPER 01/05/18 04/07/18 History metFORMIN HCL [Glucophage] 500 mg PO AC-BID 01/05/18 04/07/18 History Atorvastatin [Lipitor] 20 mg PO HS 04/07/18 04/07/18 History Hydrocortisone Cream 1 applic TOPICAL DAILY PRN 04/07/18 04/07/18 History [Hydrocortisone 2.5% Cream] PARoxetine [Paxil] 20 mg PO DAILY 04/07/18 04/07/18 History metroNIDAZOLE 0.75% CREAM 1 applic TOPICAL DAILY PRN 04/07/18 04/07/18 History [Metrocream] Allergies Allergy/AdvReac Type Severity Reaction Status Date / Time adhesive Allergy red skin Verified 04/07/18 18:26 Iodinated Contrast- Oral and Allergy Itching Verified 04/07/18 18:26 IV Dye [Iodinated Contrast Media - IV Dye] metoprolol Allergy Chest Pain Verified 04/07/18 18:26 prednisone Allergy Rapid Verified 04/07/18 18:26 Heart Rate verapamil Allergy Anaphylaxis Verified 04/07/18 18:26 celecoxib [From Celebrex] AdvReac CAUSES GI Verified 04/07/18 18:26 BLEEDING cephalexin monohydrate AdvReac Vomiting Verified 04/07/18 18:26 [From Keflex] diphenhydramine AdvReac arm burned Verified 04/07/18 18:26 [From Benadryl] when given IV hydrocodone AdvReac Nausea & Verified 04/07/18 18:26 Vomiting Penicillins AdvReac Nausea & Verified 04/07/18 18:26 Vomiting tramadol AdvReac Nausea & Verified 04/07/18 18:26 Vomiting Physical Exam Vitals: Vital Signs Temp Pulse Pulse Pulse Resp BP BP 04/08/18 12:00 18 04/08/18 11:48 97.8 F 118 H 18 138/83 04/08/18 08:00 114 H 04/08/18 07:30 97.5 F L 121 H 18 130/85 04/08/18 07:28 80 14 04/08/18 07:19 84 04/08/18 03:45 97.5 F L 117 H 18 117/64 04/08/18 03:18 84 16 04/08/18 00:00 16 04/07/18 22:42 97.7 F 119 H 16 132/73 04/07/18 22:25 97.9 F 118 H 18 135/81 04/07/18 21:07 98.0 F 111 H 20 140/68 04/07/18 20:55 102 H 04/07/18 20:41 97 04/07/18 19:40 96 16 126/80 04/07/18 18:00 104 H 04/07/18 17:43 98.0 F 115 H 20 124/84 Pulse Ox 04/08/18 12:00 04/08/18 11:48 94 L 04/08/18 08:00 04/08/18 07:30 95 04/08/18 07:28 04/08/18 07:19 04/08/18 03:45 92 L 04/08/18 03:18 04/08/18 00:00 04/07/18 22:42 97 04/07/18 22:25 96 04/07/18 21:07 99 04/07/18 20:55 04/07/18 20:41 04/07/18 19:40 98 04/07/18 18:00 04/07/18 17:43 100 Intake and Output 04/08/18 04/08/18 04/08/18 06:59 14:59 22:59 Intake Total 620 Balance 620 Intake: Oral 420 Other 200 Other: Voiding Method Toilet Toilet # Voids 2 PHYSICAL EXAMINATION: GENERAL: The patient is alert and oriented x3, not in any acute distress. Obese HEENT: Pupils are round and equally reacting to light. EOMI. No scleral icterus. No conjunctival pallor. Normocephalic, atraumatic. No pharyngeal erythema. No thyromegaly. CARDIOVASCULAR: S1 and S2 present. No murmurs, rubs, or gallops. PULMONARY: Chest is clear to auscultation, no wheezing or crackles. ABDOMEN: Soft, nontender, nondistended, normoactive bowel sounds. No palpable organomegaly. MUSCULOSKELETAL: No joint swelling or deformity. EXTREMITIES: No cyanosis, clubbing, or pedal edema. NEUROLOGICAL: Gross neurological examination did not reveal any focal deficits. SKIN: No rashes. Results CBC & Chem 7: 04/07/18 18:16 04/07/18 18:16 Labs: Abnormal Lab Results - Last 24 Hours (Table) 04/07/18 04/07/18 04/07/18 Range/Units 18:16 18:16 23:38 Hgb 11.2 L (11.4-16.0) gm/dL MCV 78.0 L (80.0-100.0) fL MCH 24.1 L (25.0-35.0) pg MCHC 30.9 L (31.0-37.0) g/dL RDW 16.7 H (11.5-15.5) % Potassium 5.3 H (3.5-5.1) mmol/L BUN 21 H (7-17) mg/dL Glucose 214 H (74-99) mg/dL POC Glucose (mg/dL) 216 H (75-99) mg/dL LDL Cholesterol, Calc (0-99) mg/dL HDL Cholesterol (40-60) mg/dL TSH 0.278 L (0.465-4.680) mIU/L 04/08/18 04/08/18 04/08/18 Range/Units 06:28 06:48 12:07 Hgb (11.4-16.0) gm/dL MCV (80.0-100.0) fL MCH (25.0-35.0) pg MCHC (31.0-37.0) g/dL RDW (11.5-15.5) % Potassium (3.5-5.1) mmol/L BUN (7-17) mg/dL Glucose (74-99) mg/dL POC Glucose (mg/dL) 235 H 228 H (75-99) mg/dL LDL Cholesterol, Calc 123 H (0-99) mg/dL HDL Cholesterol 39 L (40-60) mg/dL TSH (0.465-4.680) mIU/L Thrombosis Risk Factor Assmnt - Choose All That Apply Each Factor Represents 1 point: Abnormal pulmonary function (COPD), Age 41-60 years, Obesity (BMI >25) Thrombosis Risk Factor Assessment Total Risk Factor Score: 3 Thrombosis Risk Factor Assessment Level: Moderate Risk Assessment and Plan Plan: -Chest pain: Rule out acute clinic syndromes stresses was negative CT angios mentioned above -Rule out pulmonary embolism -Sinus tachycardia etiology is unknown but the patient blames it on systemic steroids. May be related to inhalational treatments. Her sinus tachycardia actually improved and patient doesn't want any beta neris patient had chest pains in the past with beta neris. Patient has sick euthyroid syndrome -Sick euthyroid syndrome repeat TSH as an outpatient -Nodular thyroid which is being evaluated as an outpatient -Shortness of breath etiology is unclear, although workup is negative patient is not in COPD exacerbation patient may have had minimal COPD exacerbation upon admission which improved now with the systemic steroids she received since yesterday. -Sleep apnea and obesity continue with CPAP machine at home -Fibromyalgia -Gastroesophageal reflux disease Anxiety disorder. Patient will be discharged today to follow with primary care patient is an outpatient.
--- NOTE | 2018-04-08 16:37 | P.DS ---
Providers Date of admission: 04/07/18 21:08 Attending physician: Ciro Flores Consults: 04/07/18 21:08 Consult Physician Urgent Consulting Provider: Allan Chang Consult Reason/Comments: cp Do you want consulting provider notified?: Yes Primary care physician: [facility] Course: As mentioned in HPI Patient Condition at Discharge: Undetermined Plan - Discharge Summary New Discharge Prescriptions: No Action Dapagliflozin Propanediol [Farxiga] 10 mg PO DAILY Montelukast [Singulair] 10 mg PO HS Losartan Potassium [Cozaar] 25 mg PO QAM Pioglitazone [Actos] 30 mg PO DAILY Insulin Regular, Human [humulin R U-500 Kwikpen] 10 unit SQ HS Gabapentin 600 mg PO TID Insulin Regular, Human [humulin R U-500 Kwikpen] 35 units SQ QAM metFORMIN HCL [Glucophage] 500 mg PO AC-BID metFORMIN HCL [Glucophage] 1,000 mg PO AC-SUPPER metroNIDAZOLE 0.75% CREAM [Metrocream] 1 applic TOPICAL DAILY PRN PRN Reason: Skin Irritation Hydrocortisone Cream [Hydrocortisone 2.5% Cream] 1 applic TOPICAL DAILY PRN PRN Reason: Skin Irritation PARoxetine [Paxil] 20 mg PO DAILY Atorvastatin [Lipitor] 20 mg PO HS Discharge Medication List Dapagliflozin Propanediol [Farxiga] 10 mg PO DAILY 03/18/17 [History] Montelukast [Singulair] 10 mg PO HS 04/16/17 [History] Losartan Potassium [Cozaar] 25 mg PO QAM 06/24/17 [History] Pioglitazone [Actos] 30 mg PO DAILY 09/15/17 [History] Insulin Regular, Human [humulin R U-500 Kwikpen] 10 unit SQ HS 09/19/17 [History ] Gabapentin 600 mg PO TID 10/22/17 [History] Insulin Regular, Human [humulin R U-500 Kwikpen] 35 units SQ QAM 10/22/17 [ History] metFORMIN HCL [Glucophage] 1,000 mg PO AC-SUPPER 01/05/18 [History] metFORMIN HCL [Glucophage] 500 mg PO AC-BID 01/05/18 [History] Atorvastatin [Lipitor] 20 mg PO HS 04/07/18 [History] Hydrocortisone Cream [Hydrocortisone 2.5% Cream] 1 applic TOPICAL DAILY PRN 09/24 [History] PARoxetine [Paxil] 20 mg PO DAILY 04/07/18 [History] metroNIDAZOLE 0.75% CREAM [Metrocream] 1 applic TOPICAL DAILY PRN 04/07/18 [ History] Follow up Appointment(s)/Referral(s): Cuca Iqbal MD [Primary Care Provider] - 3 Days Patient Instructions/Handouts: Chest Pain (ED) Discharge Disposition: HOME SELF-CARE
[2018-04-08 21:10] LABS: Hemoglobin A1C 6.7 % (4.0-6.0)
== END 2018-04-08 17:19 | disposition home or self-care (01) ==
LOC: EC 17:41 → 3OBS 21:08
PROVIDERS: ADMIT Hospitalist; ATTEND Hospitalist
DX: R07.89 Other chest pain (principal); I47.1 Supraventricular tachycardia; E07.81 Sick-euthyroid syndrome; E04.2 Nontoxic multinodular goiter; J44.9 Chronic obstructive pulmonary disease, unspecified; I10 Essential (primary) hypertension; E11.40 Type 2 diabetes mellitus with diabetic neuropathy, unspecified; G47.33 Obstructive sleep apnea (adult) (pediatric); Z99.89 Dependence on other enabling machines and devices; M79.7 Fibromyalgia; K21.9 Gastro-esophageal reflux disease without esophagitis; E78.5 Hyperlipidemia, unspecified; M19.90 Unspecified osteoarthritis, unspecified site; L40.9 Psoriasis, unspecified; R53.1 Weakness; G43.909 Migraine, unspecified, not intractable, without status migrainosus; F41.0 Panic disorder [episodic paroxysmal anxiety]; F32.9 Major depressive disorder, single episode, unspecified; F41.9 Anxiety disorder, unspecified; R59.1 Generalized enlarged lymph nodes; E66.9 Obesity, unspecified; Z68.41 Body mass index [BMI] 40.0-44.9, adult; Z79.4 Long term (current) use of insulin; Z79.899 Other long term (current) drug therapy; Z88.1 Allergy status to other antibiotic agents; Z91.041 Radiographic dye allergy status; Z88.5 Allergy status to narcotic agent; Z88.8 Allergy status to other drugs, medicaments and biological substances; Z91.048 Other nonmedicinal substance allergy status; Z90.49 Acquired absence of other specified parts of digestive tract; Z87.891 Personal history of nicotine dependence; Z86.73 Personal history of transient ischemic attack (TIA), and cerebral infarction without residual deficits; Z83.3 Family history of diabetes mellitus; Z82.49 Family history of ischemic heart disease and other diseases of the circulatory system; Z82.61 Family history of arthritis; Z80.41 Family history of malignant neoplasm of ovary; Z80.8 Family history of malignant neoplasm of other organs or systems
CPT/HCPCS: 99291 ×2; 96374 ×2; 96361 ×7; 96375; 96376 ×2; 36415; 94640 ×2; 93005; 84439; 80061; 80053; 82550 ×2; 82553 ×2; 83735; 84100; 84443; 84484 ×2; 85025; 85610; 85730; 83036; 71046; 71275; G0378 ×2; C8929; C8930; J1250; J2270 ×2; J2930 ×2; Q9950; Q9967; 93306; 93351

== ENCOUNTER → 2018-07-06 | Outpatient (CLI) | payer OTHER ==
--- NOTE | 2018-07-06 13:13 | US ---
EXAMINATION TYPE: US abdomen complete DATE OF EXAM: 07/06/2018 COMPARISON: CT 01/06/2018 CLINICAL HISTORY: N94.10 Unspecified dyspareunia R10.31 R lower abd. Abdominal pain, GB surgically ab sent. Difficult exam due to patient body habitus EXAM MEASUREMENTS: Liver Length: 18.6 cm Gallbladder Wall: Surgically absent cm CBD: 0.5 cm Spleen: 11.0 cm Right Kidney: 9.8 x 4.6 x 4.3 cm Left Kidney: 11.4 x 4.6 x 4.4 cm Pancreas: Obscured by bowel gas, visualized portions wnl Liver: There is increased echogenicity of the hepatic parenchyma with diminished visualization of th e portal triads most commonly relating to hepatic steatosis and limiting evaluation for underlying he patic masses. Enlarged Gallbladder: Surgically absent Evidence for sonographic Miranda's sign: No CBD: wnl as visualized Spleen: wnl Right Kidney: No hydronephrosis or masses seen Left Kidney: No hydronephrosis or masses seen Upper IVC: wnl Abd Aorta: wnl as visualized, obscured by bowel gas The intrahepatic portion of the IVC and proximal abdominal aorta are within normal limits. Common bi le duct is unremarkable. The visualized portions of the pancreas are homogenous. The spleen is unre markable. Kidneys are symmetric and free of hydronephrosis. No renal lesions are seen. IMPRESSION: Sonographic findings most commonly related to hepatic steatosis.
--- NOTE | 2018-07-06 13:24 | US ---
EXAMINATION TYPE: US pelvis complete transvag DATE OF EXAM: 07/06/2018 COMPARISON: CT 01/06/2018 CLINICAL HISTORY: N94.10 Unspecified dyspareunia R10.31 R lower abd. Pelvic pain, difficult exam due to patient body habitus TECHNIQUE: . Transabdominal sonographic images of the pelvis were acquired. Transvaginal sonographi c images were medically necessary to better assess the following anatomy: Uterus and ovaries Date of LMP: 2010 EXAM MEASUREMENTS: Uterus: 6.4 x 3.2 x 4.0 cm Endometrial Stripe: 0.2 cm Right Ovary: 1.8 x 0.9 x 1.3 cm Left Ovary: 1.2 x 1.0 x 1.1 cm 1. Uterus: Anteverted wnl 2. Endometrium: wnl 3. Right Ovary: wnl as visualized 4. Left Ovary: wnl as visualized 5. Bilateral Adnexa: wnl 6. Posterior cul-de-sac: wnl IMPRESSION: Unremarkable pelvic ultrasound with normal endometrial thickness and no adnexal mass.
== END ==
LOC: RADUSWWP 12:14
PROVIDERS: ATTEND Family Medicine
DX: N94.10 Unspecified dyspareunia (principal); R10.31 Right lower quadrant pain
CPT/HCPCS: 76700; 76830; 76856

== ENCOUNTER → 2018-07-09 | Outpatient (CLI) | payer OTHER ==
--- NOTE | 2018-07-12 13:28 | MM ---
Reason for exam: screening (asymptomatic). Last mammogram was performed 1 year and 6 months ago. History: Patient is postmenopausal. Family history of breast cancer in maternal cousin at age 30 and breast cancer in paternal aunt at age 50. Took hormonal contraceptives for 6 months. Physical Findings: A clinical breast exam by your physician is recommended on an annual basis and results should be correlated with mammographic findings. MG Screening Mammo w CAD Bilateral CC and MLO view(s) were taken. Technologist: RT Manish (R)(M) Prior study comparison: December 25, 2016, bilateral MG diagnostic mammo w CAD VONNIE. December 25, 2014, bilateral MG diagnostic mammo w CAD VONNIE. The breast tissue is heterogeneously dense. This may lower the sensitivity of mammography. There is chronic nodularity bilaterally. No significant changes when compared with prior studies. ASSESSMENT: Benign, BI-RAD 2 RECOMMENDATION: Routine screening mammogram of both breasts in 1 year.
== END | disposition home or self-care (01) ==
LOC: RADMAMWWP 14:40
PROVIDERS: ATTEND Family Medicine
DX: Z12.31 Encounter for screening mammogram for malignant neoplasm of breast (principal)
CPT/HCPCS: 77067

== ENCOUNTER 2018-08-01 13:37 | Emergency (ER) | payer OTHER ==
[2018-08-01 13:53] VITALS: RESP 18
[2018-08-01] MEDS ORDERED: ONDANSETRON 4 MG/2 ML VIAL IVP STA (14:14)
[2018-08-01] MEDS ORDERED: SODIUM CHLORIDE 0.9% 1,000 ML IV STA (14:14)
[2018-08-01] MEDS ORDERED: FAMOTIDINE 20 MG/2 ML VIAL IV STA (14:14)
[2018-08-01] MEDS ORDERED: ACETAMINOPHEN IV (For NPO) 1,000 MG in EMPTY BAG 1 BAG IVPB STA (14:40)
--- NOTE | 2018-08-01 14:43 | ED ---
General Adult HPI - General Chief complaint: Nausea/Vomiting/Diarrhea Stated complaint: nausea Time Seen by Provider: 08/01/18 14:02 Source: patient, RN notes reviewed Mode of arrival: ambulatory Limitations: no limitations - History of Present Illness Initial comments: Patient is a 48-year-old female presented to the emergency room today with a chief complaint of abdominal pain. Patient does admit that she's had some diarrhea over the last few days. States she's been feeling nauseated. Admits some pain left side of the abdomen. Patient also admits to decreased appetite. States that she has been able to keep down some liquids but has not eaten any solid food. Patient also states that she's experienced some neck pain and a headache located from her head. She states she has had some headaches similar to this in the past but they usually go away. Patient denies any other complaints currently. Patient denies any recent fever, chills, shortness of breath, chest pain, back pain, vomiting, numbness or tingling, dysuria or hematuria, constipation, visual changes, or any other complaints. - Related Data Home Medications Medication Instructions Recorded Confirmed Montelukast [Singulair] 10 mg PO HS 04/16/17 07/13/18 Losartan Potassium [Cozaar] 25 mg PO DAILY 06/24/17 07/13/18 Pioglitazone [Actos] 30 mg PO DAILY 09/15/17 07/13/18 metFORMIN HCL [Glucophage] 1,000 mg PO AC-SUPPER 01/05/18 07/13/18 metFORMIN HCL [Glucophage] 500 mg PO AC-BID 01/05/18 07/13/18 Atorvastatin [Lipitor] 20 mg PO HS 04/07/18 07/13/18 Hydrocortisone Cream 1 applic TOPICAL DAILY PRN 04/07/18 07/13/18 [Hydrocortisone 2.5% Cream] metroNIDAZOLE 0.75% CREAM 1 applic TOPICAL DAILY PRN 04/07/18 07/13/18 [Metrocream] Albuterol Inhaler [Ventolin Hfa 2 puff INHALATION RT-Q6H PRN 07/13/18 07/13/18 Inhaler] Albuterol Nebulized [Ventolin 2.5 mg INHALATION RT-QID PRN 07/13/18 07/13/18 Nebulized] Beclomethasone Dipropionate [Qvar 1 puff INHALATION RT-BID 07/13/18 07/13/18 80 mcg] Folic Acid 1 mg PO DAILY 07/13/18 07/13/18 Gabapentin [Neurontin] 300 mg PO BID 07/13/18 07/13/18 Liraglutide [Victoza 2-Bandar] 1.2 mg SQ DAILY 07/13/18 07/13/18 Methotrexate Sodium [Methotrexate] 12.5 mg PO FR 07/13/18 07/13/18 PARoxetine HCL [Paxil] 40 mg PO DAILY 07/13/18 07/13/18 Previous Rx's Medication Instructions Recorded Ondansetron Odt [Zofran ODT] 4 mg PO Q8HR PRN #10 tab 08/01/18 Allergies Allergy/AdvReac Type Severity Reaction Status Date / Time adhesive Allergy red skin Verified 08/01/18 13:53 Iodinated Contrast- Oral and Allergy Itching Verified 08/01/18 13:53 IV Dye [Iodinated Contrast Media - IV Dye] metoprolol Allergy Chest Pain Verified 08/01/18 13:53 prednisone Allergy Rapid Verified 08/01/18 13:53 Heart Rate verapamil Allergy Anaphylaxis Verified 08/01/18 13:53 celecoxib [From Celebrex] AdvReac CAUSES GI Verified 08/01/18 13:53 BLEEDING cephalexin monohydrate AdvReac Vomiting Verified 08/01/18 13:53 [From Keflex] diphenhydramine AdvReac arm burned Verified 08/01/18 13:53 [From Benadryl] when given IV hydrocodone AdvReac Nausea & Verified 08/01/18 13:53 Vomiting Penicillins AdvReac Nausea & Verified 08/01/18 13:53 Vomiting tramadol AdvReac Nausea & Verified 08/01/18 13:53 Vomiting Review of Systems ROS Statement: Those systems with pertinent positive or pertinent negative responses have been documented in the HPI. ROS Other: All systems not noted in ROS Statement are negative. Past Medical History Past Medical History: Asthma, Chest Pain / Angina, CVA/TIA, Diabetes Mellitus, Fibromyalgia, GERD/Reflux, Hyperlipidemia, Osteoarthritis (OA), Skin Disorder, Sleep Apnea/CPAP/BIPAP, Thyroid Disorder Additional Past Medical History / Comment(s): hx migraines, TIA 2015-weakness in hands and legs, two bulging disks, degenerative disk disease, neuopathy- upper and lower extremeties, uses walker, psoriasis, nodules on thyroid, bursitis left hip , malfunctioning heart valve, SVT, History of Any Multi-Drug Resistant Organisms: None Reported Past Surgical History: Adenoidectomy, Cholecystectomy, EPS, Heart Catheterization, Orthopedic Surgery, Tonsillectomy Additional Past Surgical History / Comment(s): D&C, carpal tunnel surgery left , LT ARM SX FOR "PINCHED NERVE", LT THUMB TRIGGER FINGER, rae neuroma removed left foot, cardiac ablation, right ankle fx 01/2018 with ongoing PT Past Anesthesia/Blood Transfusion Reactions: Previous Problems w/ Anesthesia, Motion Sickness Additional Past Anesthesia/Blood Transfusion Reaction / Comment(s): difficulty waking from anesthesia Past Psychological History: Anxiety, Depression, Panic Disorder Smoking Status: Former smoker Past Alcohol Use History: Rare Past Drug Use History: None Reported - Past Family History Father Family Medical History: Cancer Additional Family Medical History / Comment(s): skin Mother Family Medical History: Diabetes Mellitus, Hypertension, Osteoarthritis (OA) Additional Family Medical History / Comment(s): MURMUR Sister(s) Family Medical History: Cancer Additional Family Medical History / Comment(s): ovarian General Exam - General Exam Comments Initial Comments: General: The patient is awake and alert, in no distress, and does not appear acutely ill. Eye: Pupils are equal, round and reactive to light. Extra-ocular movements are intact. No nystagmus. There is normal conjunctiva bilaterally. No signs of icterus. Ears, nose, mouth and throat: There are moist mucous membranes and no oral lesions. Neck: The neck is supple, there is no tenderness or JVD. Cardiovascular: There is a regular rate and rhythm. No murmur, rub or gallop is appreciated. Respiratory: Lungs are clear to auscultation, respirations are non-labored, breath sounds are equal. No wheezes, stridor, rales, or rhonchi. Gastrointestinal: Abdomen soft on palpation. Patient does have tenderness in epigastric, left upper and left lower quadrant. No rebound, guarding or CVA tenderness. Musculoskeletal: Normal ROM, no tenderness. Sensation intact. Strength 5/5. Pulses equal bilaterally 2+. Neurological: A&O x 3. CN II-XII intact, There are no obvious motor or sensory deficits. Coordination appears grossly intact. Speech is normal. Skin: Skin is warm and dry and no rashes or lesions are noted. Psychiatric: Cooperative, appropriate mood & affect, normal judgment. Limitations: no limitations Course Vital Signs 08/01/18 13:51 Temperature 98.2 F Pulse Rate 109 H Respiratory 18 Rate Blood Pressure 113/73 O2 Sat by Pulse 98 Oximetry EKG Findings - EKG Comments: EKG Findings:: EKG performed at 1501: Shows normal sinus rhythm at 94 beats per minute. NH interval 148. QRS 82. QT/QTC 352/440. No acute ST changes. Medical Decision Making - Medical Decision Making Patient reexamined at the central no signs of distress. She is resting comfortably. CT the abdomen and pelvis shows evidence for gastritis. Patient' s labs been reviewed and are unremarkable. Patient states that she came to the hospital because she was having nausea with diarrhea over the last 2 days. Patient's daughter also had similar symptoms. Patient's abdomen soft nontender. Patient does admit that she's been having headache over the last day. She does admit to some numbness sensation from the forehead and down. She states she's had headaches and numbness similar to this in the past. She has seen a neurologist for. She states that symptoms have improved here. Patient does have a normal neurological exam. Sensations are intact to touch. Case is discussed and seen by attending physician . At this time patient's resting comfortably feels comfortable being discharged home to follow- up with neurologist and family physician. Will be treated for symptoms of nausea with Zofran. Patient is advised to increase oral fluids. Return here to the emergency room symptoms increase or worsen. - Lab Data Result diagrams: 08/01/18 14:37 08/01/18 14:37 Lab Results 08/01/18 08/01/18 08/01/18 Range/Units 14:37 14:37 14:37 WBC 8.4 (3.8-10.6) k/uL RBC 4.49 (3.80-5.40) m/uL Hgb 11.6 (11.4-16.0) gm/dL Hct 35.2 (34.0-46.0) % MCV 78.4 L (80.0-100.0) fL MCH 25.9 (25.0-35.0) pg MCHC 33.1 (31.0-37.0) g/dL RDW 18.5 H (11.5-15.5) % Plt Count 231 (150-450) k/uL Neutrophils % 80 % Lymphocytes % 14 % Monocytes % 2 % Eosinophils % 3 % Basophils % 0 % Neutrophils # 6.7 (1.3-7.7) k/uL Lymphocytes # 1.2 (1.0-4.8) k/uL Monocytes # 0.2 (0-1.0) k/uL Eosinophils # 0.2 (0-0.7) k/uL Basophils # 0.0 (0-0.2) k/uL Anisocytosis Slight Microcytosis Slight PT (9.0-12.0) sec INR (<1.2) APTT (22.0-30.0) sec Sodium 140 (137-145) mmol/L Potassium 4.0 (3.5-5.1) mmol/L Chloride 106 (98-107) mmol/L Carbon Dioxide 23 (22-30) mmol/L Anion Gap 11 mmol/L BUN 14 (7-17) mg/dL Creatinine 0.81 (0.52-1.04) mg/dL Est GFR (CKD-EPI)AfAm >90 (>60 ml/min/1.73 sqM) Est GFR (CKD-EPI)NonAf 86 (>60 ml/min/1.73 sqM) Glucose 137 H (74-99) mg/dL Calcium 9.1 (8.4-10.2) mg/dL Total Bilirubin 0.5 (0.2-1.3) mg/dL AST 25 (14-36) U/L ALT 33 (9-52) U/L Alkaline Phosphatase 103 (38-126) U/L Total Creatine Kinase 30 (30-135) U/L CK-MB (CK-2) <0.2 (0.0-2.4) ng/mL CK-MB (CK-2) Rel Index Total Protein 7.0 (6.3-8.2) g/dL Albumin 3.9 (3.5-5.0) g/dL Amylase 46 (30-110) U/L Lipase 160 (23-300) U/L Urine Color Urine Appearance (Clear) Urine pH (5.0-8.0) Ur Specific [place] (1.001-1.035) Urine Protein (Negative) Urine Glucose (UA) (Negative) Urine Ketones (Negative) Urine Blood (Negative) Urine Nitrite (Negative) Urine Bilirubin (Negative) Urine Urobilinogen (<2.0) mg/dL Ur Leukocyte Esterase (Negative) 08/01/18 08/01/18 Range/Units 14:45 14:55 WBC (3.8-10.6) k/uL RBC (3.80-5.40) m/uL Hgb (11.4-16.0) gm/dL Hct (34.0-46.0) % MCV (80.0-100.0) fL MCH (25.0-35.0) pg MCHC (31.0-37.0) g/dL RDW (11.5-15.5) % Plt Count (150-450) k/uL Neutrophils % % Lymphocytes % % Monocytes % % Eosinophils % % Basophils % % Neutrophils # (1.3-7.7) k/uL Lymphocytes # (1.0-4.8) k/uL Monocytes # (0-1.0) k/uL Eosinophils # (0-0.7) k/uL Basophils # (0-0.2) k/uL Anisocytosis Microcytosis PT 10.5 (9.0-12.0) sec INR 1.1 (<1.2) APTT 22.8 (22.0-30.0) sec Sodium (137-145) mmol/L Potassium (3.5-5.1) mmol/L Chloride (98-107) mmol/L Carbon Dioxide (22-30) mmol/L Anion Gap mmol/L BUN (7-17) mg/dL Creatinine (0.52-1.04) mg/dL Est GFR (CKD-EPI)AfAm (>60 ml/min/1.73 sqM) Est GFR (CKD-EPI)NonAf (>60 ml/min/1.73 sqM) Glucose (74-99) mg/dL Calcium (8.4-10.2) mg/dL Total Bilirubin (0.2-1.3) mg/dL AST (14-36) U/L ALT (9-52) U/L Alkaline Phosphatase (38-126) U/L Total Creatine Kinase (30-135) U/L CK-MB (CK-2) (0.0-2.4) ng/mL CK-MB (CK-2) Rel Index Total Protein (6.3-8.2) g/dL Albumin (3.5-5.0) g/dL Amylase (30-110) U/L Lipase (23-300) U/L Urine Color Yellow Urine Appearance Clear (Clear) Urine pH 5.5 (5.0-8.0) Ur Specific [place] 1.030 (1.001-1.035) Urine Protein Trace H (Negative) Urine Glucose (UA) 4+ H (Negative) Urine Ketones Negative (Negative) Urine Blood Negative (Negative) Urine Nitrite Negative (Negative) Urine Bilirubin Negative (Negative) Urine Urobilinogen <2.0 (<2.0) mg/dL Ur Leukocyte Esterase Negative (Negative) Disposition Clinical Impression: Nausea, Acute diarrhea, Headache, Paresthesia Disposition: HOME SELF-CARE Condition: Good Instructions: Acute Nausea and Vomiting (ED) Additional Instructions: Please use medication as discussed. Please follow-up with neurologist/family doctor tomorrow. Please return to emergency room if the symptoms increase or worsen or for any other concerns. Prescriptions: Ondansetron Odt [Zofran ODT] 4 mg PO Q8HR PRN #10 tab PRN Reason: Nausea Is patient prescribed a controlled substance at d/c from ED?: No Referrals: Cuca Iqbal MD [Primary Care Provider] - 1-2 days Yin Perkins MD [STAFF PHYSICIAN] - 1-2 days Time of Disposition: 17:12
[2018-08-01 14:48] LABS: Anisocytosis Slight; Basophils % (A) 0 %; Eosinophils # (A) 0.2 k/uL (0-0.7); Eosinophils % (A) 3 %; HCT 35.2 % (34.0-46.0); HGB 11.6 gm/dL (11.4-16.0); Lymphocytes # (A) 1.2 k/uL (1.0-4.8); Lymphocytes % (A) 14 %; MCH 25.9 pg (25.0-35.0); MCHC 33.1 g/dL (31.0-37.0); MCV 78.4 fL (80.0-100.0); Mean Platelet Volume 6.6; Microcytosis Slight; Monocytes # (A) 0.2 k/uL (0-1.0); Monocytes % (A) 2 %; Neutrophils # (A) 6.7 k/uL (1.3-7.7); Neutrophils % (A) 80 %; Platelet Count 231 k/uL (150-450); RBC 4.49 m/uL (3.80-5.40); RDW 18.5 % (11.5-15.5); WBC 8.4 k/uL (3.8-10.6)
[2018-08-01 15:02] LABS: ALT 33 U/L (9-52); AST 25 U/L (14-36); Albumin 3.9 g/dL (3.5-5.0); Alkaline Phosphatase 103 U/L (38-126); Amylase 46 U/L (30-110); Anion Gap 11 mmol/L; Blood Urea Nitrogen 14 mg/dL (7-17); Calcium 9.1 mg/dL (8.4-10.2); Carbon Dioxide 23 mmol/L (22-30); Chloride 106 mmol/L (98-107); Glucose 137 mg/dL (74-99); Lipase 160 U/L (23-300); Sodium 140 mmol/L (137-145); Total Bilirubin 0.5 mg/dL (0.2-1.3)
[2018-08-01 15:08] LABS: Creatine Kinase 30 U/L (30-135)
[2018-08-01 15:18] LABS: Creatine Kinase MB <0.2 ng/mL (0.0-2.4)
[2018-08-01 15:22] LABS: INR 1.1 (<1.2); Partial Thromboplastin Time 22.8 sec (22.0-30.0); Prothrombin Time 10.5 sec (9.0-12.0)
[2018-08-01 15:38] LABS: Appearance,Urine Clear (Clear); Bilirubin,Urine Negative (Negative); Blood,Urine Negative (Negative); Color,Urine Yellow; Glucose,Urine (UA) 4+ (Negative); Ketones,Urine Negative (Negative); Leukocyte Esterase,Urine Negative (Negative); Nitrite,Urine Negative (Negative); PH, Urine 5.5 (5.0-8.0); Protein,Urine Trace (Negative); Urobilinogen,Urine <2.0 mg/dL (<2.0)
--- NOTE | 2018-08-01 16:34 | XR ---
EXAMINATION TYPE: XR chest 2V DATE OF EXAM: 08/01/2018 COMPARISON: 07/13/2018 HISTORY: Nausea, diarrhea, headache and chills TECHNIQUE: Frontal and lateral views of the chest are obtained. FINDINGS: There is no focal air space opacity, pleural effusion, or pneumothorax seen. Chronic linea r left basilar subsegmental atelectasis is unchanged from the prior of 07/13/2018. The cardiac silhou ette size is upper limits of normal. The osseous structures are intact. IMPRESSION: Minimal unchanged left basilar subsegmental atelectasis, otherwise no acute cardiopulmon ruben process.
--- NOTE | 2018-08-01 16:35 | CT ---
EXAMINATION TYPE: CT brain wo con DATE OF EXAM: 08/01/2018 COMPARISON: 03/16/2017 HISTORY: Headache. CT DLP: 1079.4 mGycm. Automated Exposure Control for Dose Reduction was Utilized. TECHNIQUE: CT scan of the head is performed without contrast. FINDINGS: There is no acute intracranial hemorrhage, mass effect, or midline shift identified. No suspicious extra-axial fluid collection. The ventricles and sulci are within normal limits in size. The globes are intact and the visualized sinuses are clear. IMPRESSION: No acute intracranial hemorrhage, mass effect, or midline shift is seen.
--- NOTE | 2018-08-01 16:42 | CT ---
EXAMINATION TYPE: CT abdomen pelvis wo con DATE OF EXAM: 08/01/2018 COMPARISON: 01/06/2018 HISTORY: Nausea. CT DLP: 1104.4 mGycm Automated exposure control for dose reduction was used. TECHNIQUE: Helical acquisition of images was performed from the lung bases through the pelvis. FINDINGS: LUNG BASES: Minimal left basilar subsegmental dependent atelectasis is present. Remainder the lungs a re unremarkable. LIVER/GB: Unenhanced hepatic parenchyma is homogeneous. Gallbladder surgically absent. PANCREAS: No significant abnormality is seen. SPLEEN: No significant abnormality is seen. 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 Left adrenal gland is unremarkable. KIDNEYS: No significant abnormality is seen. No nephrolithiasis. FREE AIR: No free air is visualized URINARY BLADDER: No significant abnormality is seen. ADENOPATHY: No greater than 1 cm short axis lymph node is seen within the abdomen or pelvis. OSSEOUS STRUCTURES: Mild multilevel degenerative change of the spine. BOWEL: No dilated large or small bowel. Moderate amount retained colonic stool. No evidence of bowel obstruction. Stomach is incompletely distended and incompletely evaluated however monterroso appear sligh tly prominent throughout. IMPRESSION: NO EVIDENCE OF BOWEL OBSTRUCTION. MODERATE AMOUNT OF RETAINED COLONIC STOOL. STOMACH IS INCOMPLETELY DISTENDED ALTHOUGH MONTERROSO APPEAR SLIGHTLY PROMINENCE AND GASTRITIS IS A CONSIDERATION.
[2018-08-01 17:29] VITALS: BP 102/54; PULSE 92; TEMP 98.3
== END 2018-08-01 17:29 | disposition home or self-care (01) ==
LOC: EC 13:37
DX: R11.0 Nausea (principal); R19.7 Diarrhea, unspecified; R51 Headache; R20.2 Paresthesia of skin; K29.70 Gastritis, unspecified, without bleeding; M54.2 Cervicalgia; R63.8 Other symptoms and signs concerning food and fluid intake; J45.909 Unspecified asthma, uncomplicated; E78.5 Hyperlipidemia, unspecified; E11.42 Type 2 diabetes mellitus with diabetic polyneuropathy; F32.9 Major depressive disorder, single episode, unspecified; F41.0 Panic disorder [episodic paroxysmal anxiety]; L40.9 Psoriasis, unspecified; M79.7 Fibromyalgia; Z87.891 Personal history of nicotine dependence; Z88.0 Allergy status to penicillin; Z88.1 Allergy status to other antibiotic agents; Z88.5 Allergy status to narcotic agent; Z88.6 Allergy status to analgesic agent; Z88.8 Allergy status to other drugs, medicaments and biological substances; Z91.041 Radiographic dye allergy status; Z91.048 Other nonmedicinal substance allergy status; Z79.51 Long term (current) use of inhaled steroids; Z79.84 Long term (current) use of oral hypoglycemic drugs; Z79.899 Other long term (current) drug therapy; Z90.49 Acquired absence of other specified parts of digestive tract; Z86.69 Personal history of other diseases of the nervous system and sense organs; Z86.79 Personal history of other diseases of the circulatory system; Z95.818 Presence of other cardiac implants and grafts; Z98.890 Other specified postprocedural states
CPT/HCPCS: 36415; 93005; 80053; 82150; 82550; 82553; 83690; 85025; 85610; 85730; 81003; 71046; 70450; 74176; 99284; 96365; 96375 ×2; J2405; J0131

== ENCOUNTER 2018-08-17 20:34 | Emergency (ER) | payer OTHER ==
[2018-08-17 21:14] VITALS: BP 116/75; PULSE 100; RESP 18; TEMP 98.3
--- NOTE | 2018-08-17 22:20 | ED ---
General Adult HPI - General Chief complaint: Skin/Abscess/Foreign Body Stated complaint: poss allergic reaction on face&arm Source: patient, RN notes reviewed, old records reviewed Mode of arrival: ambulatory Limitations: no limitations - History of Present Illness Initial comments: 48-year-old female patient with past history of type 2 diabetes presents to ED with acute itchy bumps on left full her forearm, face. Patient states that she noticed the bumps on her left volar forearm yesterday morning, she noticed the bumps on the face today. Patient states that they're red, raised, pruritic. Patient denies changing any recent detergent, towels, clothing. Patient denies any other signs or symptoms, denies any other rash, and denies nausea vomiting diarrhea, denies fever chills, denies shortness of breath, denies chest pain, denies headache, denies change in vision. Systemic: Pt denies fatigue, myalgia, chills, rash. Pt denies weakness, night sweats, weight loss. Neuro: Pt denies headache, visual disturbances, syncope or pre-syncope. HEENT: Pt denies ocular discharge or irritation, otalgia, rhinorrhea, pharyngitis or notable lymphadenopathy. Cardiopulmonary: Pt denies chest pain, SOB, heart palpitations, dyspnea on exertion. Abdominal/GI: Pt denies abdominal pain, n/v/d. : Pt denies dysuria, burning w/ urination, frequency/urgency. Denies new onset urinary or bowel incontinence. MSK: Pt denies myalgia, loss of strength or function in extremities. Neuro: Pt denies new onset weakness, paresthesias. - Related Data Home Medications Medication Instructions Recorded Confirmed Montelukast [Singulair] 10 mg PO HS 04/16/17 07/13/18 Losartan Potassium [Cozaar] 25 mg PO DAILY 06/24/17 07/13/18 Pioglitazone [Actos] 30 mg PO DAILY 09/15/17 07/13/18 metFORMIN HCL [Glucophage] 1,000 mg PO AC-SUPPER 01/05/18 07/13/18 metFORMIN HCL [Glucophage] 500 mg PO AC-BID 01/05/18 07/13/18 Atorvastatin [Lipitor] 20 mg PO HS 04/07/18 07/13/18 Hydrocortisone Cream 1 applic TOPICAL DAILY PRN 04/07/18 07/13/18 [Hydrocortisone 2.5% Cream] metroNIDAZOLE 0.75% CREAM 1 applic TOPICAL DAILY PRN 04/07/18 07/13/18 [Metrocream] Albuterol Inhaler [Ventolin Hfa 2 puff INHALATION RT-Q6H PRN 07/13/18 07/13/18 Inhaler] Albuterol Nebulized [Ventolin 2.5 mg INHALATION RT-QID PRN 07/13/18 07/13/18 Nebulized] Beclomethasone Dipropionate [Qvar 1 puff INHALATION RT-BID 07/13/18 07/13/18 80 mcg] Folic Acid 1 mg PO DAILY 07/13/18 07/13/18 Gabapentin [Neurontin] 300 mg PO BID 07/13/18 07/13/18 Liraglutide [Victoza 2-Bandar] 1.2 mg SQ DAILY 07/13/18 07/13/18 Methotrexate Sodium [Methotrexate] 12.5 mg PO FR 07/13/18 07/13/18 PARoxetine HCL [Paxil] 40 mg PO DAILY 07/13/18 07/13/18 Previous Rx's Medication Instructions Recorded Ondansetron Odt [Zofran ODT] 4 mg PO Q8HR PRN #10 tab 08/01/18 diphenhydrAMINE [Benadryl] 2 tab PO Q12HR PRN 3 Days #18 08/17/18 capsule Allergies Allergy/AdvReac Type Severity Reaction Status Date / Time adhesive Allergy red skin Verified 08/17/18 21:14 Iodinated Contrast- Oral and Allergy Itching Verified 08/17/18 21:14 IV Dye [Iodinated Contrast Media - IV Dye] metoprolol Allergy Chest Pain Verified 08/17/18 21:14 prednisone Allergy Rapid Verified 08/17/18 21:14 Heart Rate verapamil Allergy Anaphylaxis Verified 08/17/18 21:14 celecoxib [From Celebrex] AdvReac CAUSES GI Verified 08/17/18 21:14 BLEEDING cephalexin monohydrate AdvReac Vomiting Verified 08/17/18 21:14 [From Keflex] diphenhydramine AdvReac arm burned Verified 08/17/18 21:14 [From Benadryl] when given IV hydrocodone AdvReac Nausea & Verified 08/17/18 21:14 Vomiting Penicillins AdvReac Nausea & Verified 08/17/18 21:14 Vomiting tramadol AdvReac Nausea & Verified 08/17/18 21:14 Vomiting Review of Systems ROS Statement: Those systems with pertinent positive or pertinent negative responses have been documented in the HPI. ROS Other: All systems not noted in ROS Statement are negative. Past Medical History Past Medical History: Asthma, Chest Pain / Angina, CVA/TIA, Diabetes Mellitus, Fibromyalgia, GERD/Reflux, Hyperlipidemia, Osteoarthritis (OA), Skin Disorder, Sleep Apnea/CPAP/BIPAP, Thyroid Disorder Additional Past Medical History / Comment(s): hx migraines, TIA 2016-weakness in hands and legs, two bulging disks, degenerative disk disease, neuopathy- upper and lower extremeties, uses walker, psoriasis, nodules on thyroid, bursitis left hip , malfunctioning heart valve, SVT, History of Any Multi-Drug Resistant Organisms: None Reported Past Surgical History: Adenoidectomy, Cholecystectomy, EPS, Heart Catheterization, Orthopedic Surgery, Tonsillectomy Additional Past Surgical History / Comment(s): D&C, carpal tunnel surgery left , LT ARM SX FOR "PINCHED NERVE", LT THUMB TRIGGER FINGER, rae neuroma removed left foot, cardiac ablation, right ankle fx 01/2018 with ongoing PT Past Anesthesia/Blood Transfusion Reactions: Previous Problems w/ Anesthesia, Motion Sickness Additional Past Anesthesia/Blood Transfusion Reaction / Comment(s): difficulty waking from anesthesia Past Psychological History: Anxiety, Depression, Panic Disorder Smoking Status: Former smoker Past Alcohol Use History: Rare Past Drug Use History: None Reported - Past Family History Father Family Medical History: Cancer Additional Family Medical History / Comment(s): skin Mother Family Medical History: Diabetes Mellitus, Hypertension, Osteoarthritis (OA) Additional Family Medical History / Comment(s): MURMUR Sister(s) Family Medical History: Cancer Additional Family Medical History / Comment(s): ovarian General Exam - General Exam Comments Initial Comments: Constitutional: NAD, AOX3, Pt has pleasant affect. HEENT: NC/AT, trachea midline, neck supple, no lymphadenopathy. Posterior pharynx non erythematous, without exudates. External ears appear normal, without discharge. Mucous membranes moist. Eyes PERRLA, EOM intact. There is no scleral icterus. No pallor noted. Cardiopulmonary: RRR, no murmurs, rubs or gallops, no JVD noted. Lungs CTAB in anterior and posterior hinds. No peripheral edema. Abdominal exam: Abdomen soft and non-distended. Abdomen non-tender to palpation in all 4 quadrants. Bowel sounds active in LLQ. No hepatosplenomegaly. No ecchymosis Neuro: CN II-XII grossly intact. No nuchal rigidity. MSK: No posterior calf tenderness bilaterally, homans sign negative bilaterally. Posterior tibialis and radial pulse +2 bilaterally. Sensation intact in upper and lower extremities. Full active ROM in upper and lower extremities, 5/5 stregnth. Derm: groups of 3 raised pruritic erythematous papules. Approximately 3 groups located on left full forearm. approximately 1 group located on left cheek. Limitations: no limitations Course Vital Signs 08/17/18 21:12 Temperature 98.3 F Pulse Rate 100 Respiratory 18 Rate Blood Pressure 116/75 O2 Sat by Pulse 99 Oximetry Medical Decision Making - Medical Decision Making 48-year-old female patient with past history of type 2 diabetes presents to ED with acute itchy bumps on left full her forearm, face. Patient states that she noticed the bumps on her left volar forearm yesterday morning, she noticed the bumps on the face today. Patient states that they're red, raised, pruritic. Physical exam revealed these to be bedbug bites. Patient educated length about this.. Patient prescribed Benadryl to decrease itching. Pt states that she has no allergy to benadryl. Patient to follow PCP in 1-2 days. Patient to return to ED if any new signs or symptoms develop. Case discussed with Dr. Das. Disposition Clinical Impression: Bed bug bite Disposition: HOME SELF-CARE Condition: Good Instructions: Bed Bugs (ED) Additional Instructions: Patient to adhere to previously discussed treatment plan and will take medication(s) as directed. Patient to follow up with PCP in 1-2 days. Patient to return to ED if symptoms do not improve. Prescriptions: diphenhydrAMINE [Benadryl] 2 tab PO Q12HR PRN 3 Days #18 capsule PRN Reason: Allergic Reaction Is patient prescribed a controlled substance at d/c from ED?: No Referrals: Cuca Iqbal MD [Primary Care Provider] - 1-2 days Time of Disposition: 22:22
== END 2018-08-17 22:28 | disposition home or self-care (01) ==
LOC: EC 20:34
DX: S00.86XA Insect bite (nonvenomous) of other part of head, initial encounter (principal); S40.262A Insect bite (nonvenomous) of left shoulder, initial encounter; W57.XXXA Bitten or stung by nonvenomous insect and other nonvenomous arthropods, initial encounter; J45.909 Unspecified asthma, uncomplicated; M79.7 Fibromyalgia; K21.9 Gastro-esophageal reflux disease without esophagitis; E78.5 Hyperlipidemia, unspecified; M19.90 Unspecified osteoarthritis, unspecified site; G47.30 Sleep apnea, unspecified; Z99.89 Dependence on other enabling machines and devices; E11.40 Type 2 diabetes mellitus with diabetic neuropathy, unspecified; E07.9 Disorder of thyroid, unspecified; F41.0 Panic disorder [episodic paroxysmal anxiety]; F32.9 Major depressive disorder, single episode, unspecified; Z87.891 Personal history of nicotine dependence; Z79.51 Long term (current) use of inhaled steroids; Z79.84 Long term (current) use of oral hypoglycemic drugs; Z79.899 Other long term (current) drug therapy; Z91.041 Radiographic dye allergy status; Z91.048 Other nonmedicinal substance allergy status; Z88.0 Allergy status to penicillin; Z88.5 Allergy status to narcotic agent; Z88.1 Allergy status to other antibiotic agents; Z88.8 Allergy status to other drugs, medicaments and biological substances; Z95.818 Presence of other cardiac implants and grafts
CPT/HCPCS: 99283

== ENCOUNTER 2018-09-03 16:28 | Emergency (ER) | payer OTHER ==
[2018-09-03] MEDS ORDERED: HYDROcodone/APAP 5-325MG 1 EACH TAB PO STA (17:42)
--- NOTE | 2018-09-03 18:07 | ED ---
General Adult HPI - General Chief complaint: Extremity Problem,Nontraumatic Stated complaint: Possible blood clot Time Seen by Provider: 09/03/18 17:31 Source: patient, RN notes reviewed, old records reviewed Mode of arrival: wheelchair Limitations: no limitations - History of Present Illness Initial comments: Patient 48-year-old female presented to the emergency room today with a chief complaint of needing ultrasound to rule out possible DVT. Patient does admit to an injury to the right ankle that occurred back in January 2018. She states that she's been both in a splint in a walking boot since that time. She states she's been following up with her orthopedic doctor. Did see him recently today and was having increased pain to the posterior calf and ankle area. Was advised coming here to the emergency room to have normal sound rule out DVT. Patient denies any history of blood clots. She denies any shortness of breath. Denies any other complaints or symptoms. Patient denies any recent fever, chills, shortness of breath, chest pain, back pain, abdominal pain, nausea or vomiting, headaches or visual changes, or any other complaints. - Related Data Home Medications Medication Instructions Recorded Confirmed Montelukast [Singulair] 10 mg PO HS 04/16/17 07/13/18 Losartan Potassium [Cozaar] 25 mg PO DAILY 06/24/17 07/13/18 Pioglitazone [Actos] 30 mg PO DAILY 09/15/17 07/13/18 metFORMIN HCL [Glucophage] 1,000 mg PO AC-SUPPER 01/05/18 07/13/18 metFORMIN HCL [Glucophage] 500 mg PO AC-BID 01/05/18 07/13/18 Atorvastatin [Lipitor] 20 mg PO HS 04/07/18 07/13/18 Hydrocortisone Cream 1 applic TOPICAL DAILY PRN 04/07/18 07/13/18 [Hydrocortisone 2.5% Cream] metroNIDAZOLE 0.75% CREAM 1 applic TOPICAL DAILY PRN 04/07/18 07/13/18 [Metrocream] Albuterol Inhaler [Ventolin Hfa 2 puff INHALATION RT-Q6H PRN 07/13/18 07/13/18 Inhaler] Albuterol Nebulized [Ventolin 2.5 mg INHALATION RT-QID PRN 07/13/18 07/13/18 Nebulized] Beclomethasone Dipropionate [Qvar 1 puff INHALATION RT-BID 07/13/18 07/13/18 80 mcg] Folic Acid 1 mg PO DAILY 07/13/18 07/13/18 Gabapentin [Neurontin] 300 mg PO BID 07/13/18 07/13/18 Liraglutide [Victoza 2-Bandar] 1.2 mg SQ DAILY 07/13/18 07/13/18 Methotrexate Sodium [Methotrexate] 12.5 mg PO FR 07/13/18 07/13/18 PARoxetine HCL [Paxil] 40 mg PO DAILY 07/13/18 07/13/18 Previous Rx's Medication Instructions Recorded Ondansetron Odt [Zofran ODT] 4 mg PO Q8HR PRN #10 tab 08/01/18 diphenhydrAMINE [Benadryl] 2 tab PO Q12HR PRN 3 Days #18 08/17/18 capsule Allergies Allergy/AdvReac Type Severity Reaction Status Date / Time adhesive Allergy red skin Verified 09/03/18 18:27 Iodinated Contrast- Oral and Allergy Itching Verified 09/03/18 18:27 IV Dye [Iodinated Contrast Media - IV Dye] metoprolol Allergy Chest Pain Verified 09/03/18 18:27 prednisone Allergy Rapid Verified 09/03/18 18:27 Heart Rate verapamil Allergy Anaphylaxis Verified 09/03/18 18:27 celecoxib [From Celebrex] AdvReac CAUSES GI Verified 09/03/18 18:27 BLEEDING cephalexin monohydrate AdvReac Vomiting Verified 09/03/18 18:27 [From Keflex] diphenhydramine AdvReac arm burned Verified 09/03/18 18:27 [From Benadryl] when given IV hydrocodone AdvReac Nausea & Verified 09/03/18 18:27 Vomiting Penicillins AdvReac Nausea & Verified 09/03/18 18:27 Vomiting tramadol AdvReac Nausea & Verified 09/03/18 18:27 Vomiting Review of Systems ROS Statement: Those systems with pertinent positive or pertinent negative responses have been documented in the HPI. ROS Other: All systems not noted in ROS Statement are negative. Past Medical History Past Medical History: Asthma, Chest Pain / Angina, CVA/TIA, Diabetes Mellitus, Fibromyalgia, GERD/Reflux, Hyperlipidemia, Osteoarthritis (OA), Skin Disorder, Sleep Apnea/CPAP/BIPAP, Thyroid Disorder Additional Past Medical History / Comment(s): hx migraines, TIA 2016-weakness in hands and legs, two bulging disks, degenerative disk disease, neuopathy- upper and lower extremeties, uses walker, psoriasis, nodules on thyroid, bursitis left hip , malfunctioning heart valve, SVT, History of Any Multi-Drug Resistant Organisms: None Reported Past Surgical History: Adenoidectomy, Cholecystectomy, EPS, Heart Catheterization, Orthopedic Surgery, Tonsillectomy Additional Past Surgical History / Comment(s): D&C, carpal tunnel surgery left , LT ARM SX FOR "PINCHED NERVE", LT THUMB TRIGGER FINGER, rae neuroma removed left foot, cardiac ablation, right ankle fx 01/2018 with ongoing PT Past Anesthesia/Blood Transfusion Reactions: Previous Problems w/ Anesthesia, Motion Sickness Additional Past Anesthesia/Blood Transfusion Reaction / Comment(s): difficulty waking from anesthesia Past Psychological History: Anxiety, Depression, Panic Disorder Smoking Status: Former smoker Past Alcohol Use History: Occasional Past Drug Use History: None Reported - Past Family History Father Family Medical History: Cancer Additional Family Medical History / Comment(s): skin Mother Family Medical History: Diabetes Mellitus, Hypertension, Osteoarthritis (OA) Additional Family Medical History / Comment(s): MURMUR Sister(s) Family Medical History: Cancer Additional Family Medical History / Comment(s): ovarian General Exam - General Exam Comments Initial Comments: General: The patient is awake and alert, in no distress, and does not appear acutely ill. Neck: The neck is supple, there is no tenderness or JVD. Cardiovascular: There is a regular rate and rhythm. No murmur, rub or gallop is appreciated. Respiratory: Lungs are clear to auscultation, respirations are non-labored, breath sounds are equal. No wheezes, stridor, rales, or rhonchi. Musculoskeletal: Normal ROM,. Normal appearance of the right lower extremity no obvious deformity. Patient does have tenderness posterior right calf. Positive Homans. Strength 5/5. Sensation intact. Pedal pulses equal bilaterally 2+. Neurological: A&O x 3. CN II-XII intact, There are no obvious motor or sensory deficits. Coordination appears grossly intact. Speech is normal. Skin: Skin is warm and dry and no rashes or lesions are noted. Psychiatric: Cooperative, appropriate mood & affect, normal judgment. Limitations: no limitations Course Vital Signs 09/03/18 09/03/18 16:44 18:24 Temperature 98.5 F Pulse Rate 112 H 102 H Respiratory 20 18 Rate Blood Pressure 124/78 O2 Sat by Pulse 99 95 Oximetry Medical Decision Making - Medical Decision Making Patient's ultrasound negative for any evidence of DVT. Results were discussed with the patient. Patient was given [place] here in the emergency room for her pain and heart rate did improve. Patient has had tachycardia in the past. She states is not unusual for her. She denies any shortness of breath. She denies any other complaints. She does plan to follow back up with her orthopedic doctor. Patient requesting pain medication to go home with. Advised her that she needs to get a prescription from with family physician or orthopedics. She will be given a Lidoderm patch as she states she's had some relief with this in the past. Disposition Clinical Impression: Right ankle pain Disposition: HOME SELF-CARE Condition: Good Instructions: Ankle Fracture (ED) Additional Instructions: Please use medication as discussed. Please follow-up with orthopedics in the next 25 days. Please return to emergency room if the symptoms increase or worsen or for any other concerns. Is patient prescribed a controlled substance at d/c from ED?: No Referrals: Cuca Iqbal MD [Primary Care Provider] - 1-2 days Time of Disposition: 19:04
--- NOTE | 2018-09-03 18:41 | US ---
EXAMINATION TYPE: US venous doppler duplex LE RT DATE OF EXAM: 09/03/2018 5:31 PM COMPARISON: CLINICAL HISTORY: Pain. Broken right ankle. Calf pain. No blood thinners. No hx of blood clots. N o swelling. No redness. SIDE PERFORMED: Right TECHNIQUE: The lower extremity deep venous system is examined utilizing real time linear array sonog dain with graded compression, doppler sonography and color-flow sonography. VESSELS IMAGED: External Iliac Vein (EIV) Common Femoral Vein Deep Femoral Vein Greater Saphenous Vein * Femoral Vein Popliteal Vein Small Saphenous Vein * Proximal Calf Veins (* superficial vessels) Right Leg: Negative for DVT IMPRESSION: No evidence of deep venous thrombosis in the right leg.
[2018-09-03] MEDS ORDERED: LIDOCAINE 5% PATCH TOPICAL STA (19:03)
[2018-09-03 19:07] VITALS: BP 116/78; PULSE 99; RESP 16; TEMP 97.6
== END 2018-09-03 19:40 | disposition home or self-care (01) ==
LOC: EC 16:28
DX: M25.571 Pain in right ankle and joints of right foot (principal); J45.909 Unspecified asthma, uncomplicated; E11.40 Type 2 diabetes mellitus with diabetic neuropathy, unspecified; M79.7 Fibromyalgia; K21.9 Gastro-esophageal reflux disease without esophagitis; E78.5 Hyperlipidemia, unspecified; M19.90 Unspecified osteoarthritis, unspecified site; E07.9 Disorder of thyroid, unspecified; G47.30 Sleep apnea, unspecified; Z99.89 Dependence on other enabling machines and devices; F32.9 Major depressive disorder, single episode, unspecified; Z86.73 Personal history of transient ischemic attack (TIA), and cerebral infarction without residual deficits; F41.0 Panic disorder [episodic paroxysmal anxiety]; Z87.891 Personal history of nicotine dependence; Z79.84 Long term (current) use of oral hypoglycemic drugs; Z79.51 Long term (current) use of inhaled steroids; Z79.899 Other long term (current) drug therapy; Z91.041 Radiographic dye allergy status; Z91.048 Other nonmedicinal substance allergy status; Z88.1 Allergy status to other antibiotic agents; Z88.0 Allergy status to penicillin; Z88.5 Allergy status to narcotic agent; Z88.8 Allergy status to other drugs, medicaments and biological substances; Z95.818 Presence of other cardiac implants and grafts
CPT/HCPCS: 99284

== ENCOUNTER 2018-09-14 18:40 | Emergency (ER) | payer OTHER ==
[2018-09-14 18:51] VITALS: TEMP 98.5
--- NOTE | 2018-09-14 20:51 | XR ---
PROCEDURE: XR foot complete RT - 3V DATE AND TIME: 09/14/2018 8:38 PM CLINICAL INDICATION: [facility]; Pain TECHNIQUE: Department protocol COMPARISON: None FINDINGS: There is no fracture or malalignment. The soft tissues are unremarkable. IMPRESSION: NO ACUTE PROCESS.
--- NOTE | 2018-09-14 20:53 | XR ---
PROCEDURE: XR ankle complete RT - 3V DATE AND TIME: 09/14/2018 8:38 PM CLINICAL INDICATION: [facility]; Pain TECHNIQUE: Department protocol COMPARISON: 09/28/2014 FINDINGS: There is no fracture or malalignment. The soft tissues are unremarkable. IMPRESSION: NO ACUTE PROCESS.
[2018-09-14] MEDS ORDERED: KETOROLAC 60 MG/2 ML VIAL IM STA (21:28)
--- NOTE | 2018-09-14 22:13 | ED ---
Lower Extremity Injury HPI - General Chief Complaint: Extremity Injury, Lower Stated Complaint: Swollen ankle Time Seen by Provider: 09/14/18 20:47 Source: patient Mode of arrival: wheelchair Limitations: no limitations - History of Present Illness Initial Comments: 48yo female with PMH of DM and HTN, and previous right ankle fracture January 2018 presenting today for cc of right ankle pain and swelling x weeks. Pt states she noticed on and off swelling of right ankle since fracture in January. Pt follows senior sharepoint architect Dr. Andrew who performed MRI revealing delayed healing. Pt states she was sent for duplex US about a week ago for swelling of the right ankle/ foot. She states she does not know the results (negative upon chart review). Pt states today she noticed swelling of the right ankle and foot, however it has since subsided upon arrival. Pt denies any erythema, warmth to palpation, fever , chills, numbness, tingling, loss of sensation, pallor or weakness of foot. Pt wears boot/air cast and is supposed to be nonweight bearing. pt admits she is not always compliant with NWB order. Upon arrival pt appears well. Remainder of ROS (-), pt denies chest pain, dyspnea, HEART, nausea, vomiting, abdominal pain, back pain, visual changes, numbness, tingling, urgency, frequency dysuria, orthopnea, b/l edema. - Related Data Home Medications Medication Instructions Recorded Confirmed Montelukast [Singulair] 10 mg PO HS 04/16/17 09/14/18 Losartan Potassium [Cozaar] 25 mg PO DAILY 06/24/17 09/14/18 Pioglitazone [Actos] 30 mg PO DAILY 09/15/17 09/14/18 metFORMIN HCL [Glucophage] 1,000 mg PO AC-SUPPER 01/05/18 09/14/18 metFORMIN HCL [Glucophage] 500 mg PO AC-BID 01/05/18 09/14/18 Atorvastatin [Lipitor] 20 mg PO HS 04/07/18 09/14/18 Hydrocortisone Cream 1 applic TOPICAL DAILY PRN 04/07/18 09/14/18 [Hydrocortisone 2.5% Cream] metroNIDAZOLE 0.75% CREAM 1 applic TOPICAL DAILY PRN 04/07/18 09/14/18 [Metrocream] Albuterol Inhaler [Ventolin Hfa 2 puff INHALATION RT-Q6H PRN 07/13/18 09/14/18 Inhaler] Albuterol Nebulized [Ventolin 2.5 mg INHALATION RT-QID PRN 07/13/18 09/14/18 Nebulized] Beclomethasone Dipropionate [Qvar 1 puff INHALATION RT-BID 07/13/18 09/14/18 80 mcg] Folic Acid 1 mg PO DAILY 07/13/18 09/14/18 Liraglutide [Victoza 2-Bandar] 1.2 mg SQ DAILY 07/13/18 09/14/18 Methotrexate Sodium [Methotrexate] 12.5 mg PO FR 07/13/18 09/14/18 PARoxetine HCL [Paxil] 40 mg PO DAILY 07/13/18 09/14/18 Dapagliflozin Propanediol [Farxiga] 10 mg PO DAILY 09/14/18 09/14/18 Ferrous Sulfate [Feosol] 325 mg PO BID 09/14/18 09/14/18 Gabapentin [Neurontin] 300 mg PO TID 09/14/18 09/14/18 Ipratropium Nebulized [Atrovent 0.5 mg INHALATION RT-QID 09/14/18 09/14/18 Nebulized 0.2 MG/ML] Omeprazole [PriLOSEC] 20 mg PO DAILY 09/14/18 09/14/18 Triamcinolone 0.025% Cream 1 applic TOPICAL BID 09/14/18 09/14/18 [Kenalog 0.025% Cream] Allergies Allergy/AdvReac Type Severity Reaction Status Date / Time adhesive Allergy red skin Verified 09/14/18 21:34 Iodinated Contrast- Oral and Allergy Itching Verified 09/14/18 21:34 IV Dye [Iodinated Contrast Media - IV Dye] metoprolol Allergy Chest Pain Verified 09/14/18 21:34 prednisone Allergy Rapid Verified 09/14/18 21:34 Heart Rate verapamil Allergy Anaphylaxis Verified 09/14/18 21:34 celecoxib [From Celebrex] AdvReac CAUSES GI Verified 09/14/18 21:34 BLEEDING cephalexin monohydrate AdvReac Vomiting Verified 09/14/18 21:34 [From Keflex] diphenhydramine AdvReac arm burned Verified 09/14/18 21:34 [From Benadryl] when given IV hydrocodone AdvReac Nausea & Verified 09/14/18 21:34 Vomiting Penicillins AdvReac Nausea & Verified 09/14/18 21:34 Vomiting tramadol AdvReac Nausea & Verified 09/14/18 21:34 Vomiting Review of Systems ROS Statement: Those systems with pertinent positive or pertinent negative responses have been documented in the HPI. ROS Other: All systems not noted in ROS Statement are negative. Past Medical History Past Medical History: Asthma, Chest Pain / Angina, CVA/TIA, Diabetes Mellitus, Fibromyalgia, GERD/Reflux, Hyperlipidemia, Osteoarthritis (OA), Skin Disorder, Sleep Apnea/CPAP/BIPAP, Thyroid Disorder Additional Past Medical History / Comment(s): hx migraines, TIA 2016-weakness in hands and legs, two bulging disks, degenerative disk disease, neuopathy- upper and lower extremeties, uses walker, psoriasis, nodules on thyroid, bursitis left hip , malfunctioning heart valve, SVT, History of Any Multi-Drug Resistant Organisms: None Reported Past Surgical History: Adenoidectomy, Cholecystectomy, EPS, Heart Catheterization, Orthopedic Surgery, Tonsillectomy Additional Past Surgical History / Comment(s): D&C, carpal tunnel surgery left , LT ARM SX FOR "PINCHED NERVE", LT THUMB TRIGGER FINGER, rae neuroma removed left foot, cardiac ablation, right ankle fx 01/2018 with ongoing PT Past Anesthesia/Blood Transfusion Reactions: Previous Problems w/ Anesthesia, Motion Sickness Additional Past Anesthesia/Blood Transfusion Reaction / Comment(s): difficulty waking from anesthesia Past Psychological History: Anxiety, Depression, Panic Disorder Smoking Status: Former smoker Past Alcohol Use History: Occasional Past Drug Use History: None Reported - Past Family History Father Family Medical History: Cancer Additional Family Medical History / Comment(s): skin Mother Family Medical History: Diabetes Mellitus, Hypertension, Osteoarthritis (OA) Additional Family Medical History / Comment(s): MURMUR Sister(s) Family Medical History: Cancer Additional Family Medical History / Comment(s): ovarian General Exam - General Exam Comments Initial Comments: General: The patient is awake and alert, in no distress, and does not appear acutely ill. Eye: +3 mm pupils are equal, round and reactive to light, extra-ocular movements are intact. No nystagmus. There is normal conjunctiva bilaterally. No signs of icterus. Ears, nose, mouth and throat: There are moist mucous membranes and no oral lesions. Cardiovascular: There is a regular rate and rhythm. No murmur, rub or gallop is appreciated. Respiratory: Lungs are clear to auscultation, respirations are non-labored, breath sounds are equal. No wheezes, stridor, rales, or rhonchi. Musculoskeletal: Upon inspection of the feet bilaterally that are equal, there is no soft tissue swelling or edema. No noted erythema. Patient is able to fully range at the ankles equally bilaterally. Patient does admit to discomfort with range of motion of the right ankle. Strength 5/5 with all ranges of motion at the ankle including suction extension inversion eversion. Strength 5/5 of the joints of the lower extremities equally bilaterally. Sensation intact proximal and distal to injury site.. DP pulses equal bilaterally 2+. (-) Homans. No cooler or pallor noted of the lower extremities. Neurological: A&O x 3. CN II-XII intact, There are no obvious motor or sensory deficits. Coordination appears grossly intact. Speech is normal. Skin: Skin is warm and dry and no rashes or lesions are noted. Psychiatric: Cooperative, appropriate mood & affect, normal judgment. Limitations: no limitations Course Vital Signs 09/14/18 09/14/18 18:48 22:22 Temperature 98.5 F Pulse Rate 106 H 99 Respiratory 18 16 Rate Blood Pressure 131/81 116/71 O2 Sat by Pulse 99 97 Oximetry Medical Decision Making - Medical Decision Making 48yo with delayed healing fracture of the right juan.Duplex US (-) DVT. No swelling on exam. XR obtained in advanced triage no acute findings. Pt neurovascularly intact. +2 DP pulses equal b/l. Capillary refill 2-3 seconds b/ l. Given chronicitiy of symptoms with previous fracture I have suspicion for a complex regional pain syndrome. Pt was given information regarding condition, agreed that symptoms appear very consistent. Pt had f/u appointment with Dr. Andrew, senior sharepoint architect this Thursday. At this time I do feel pt is stable for discharge with recent (-) US with no concerning PE findings. Pt was instructed to NWB, i stressed importance for complete healing of fracture and to f/u with as scheduled. Discussed the case with Dr. La who agreed with impression and plan. Pt discharged in stable condition appearing well. Using air cast. Disposition Clinical Impression: Pain, foot, right, chronic, Chronic pain of right ankle Disposition: HOME SELF-CARE Condition: Good Additional Instructions: Please use home medication as discussed. Please follow-up with Dr. Andrew as scheduled Thursday. Please resume nonweightbearing protocols and use boot for walking. Please return to emergency room if the symptoms increase or worsen or for any other concerns, as discussed. Is patient prescribed a controlled substance at d/c from ED?: No Referrals: Cuca Iqbal MD [Primary Care Provider] - 1-2 days Dimitri Andrew DPM [STAFF PHYSICIAN] - 1-2 days Time of Disposition: 22:13
[2018-09-14 22:24] VITALS: BP 116/71; PULSE 99; RESP 16
== END 2018-09-14 22:24 | disposition home or self-care (01) ==
LOC: EC 18:40
DX: G89.29 Other chronic pain (principal); M25.571 Pain in right ankle and joints of right foot; M79.671 Pain in right foot; J45.909 Unspecified asthma, uncomplicated; E78.5 Hyperlipidemia, unspecified; E11.9 Type 2 diabetes mellitus without complications; M79.7 Fibromyalgia; K21.9 Gastro-esophageal reflux disease without esophagitis; L40.9 Psoriasis, unspecified; G47.30 Sleep apnea, unspecified; F32.9 Major depressive disorder, single episode, unspecified; F41.0 Panic disorder [episodic paroxysmal anxiety]; I69.354 Hemiplegia and hemiparesis following cerebral infarction affecting left non-dominant side; I69.353 Hemiplegia and hemiparesis following cerebral infarction affecting right non-dominant side; Z87.891 Personal history of nicotine dependence; Z88.0 Allergy status to penicillin; Z88.1 Allergy status to other antibiotic agents; Z88.5 Allergy status to narcotic agent; Z88.6 Allergy status to analgesic agent; Z88.8 Allergy status to other drugs, medicaments and biological substances; Z91.041 Radiographic dye allergy status; Z91.048 Other nonmedicinal substance allergy status; Z79.51 Long term (current) use of inhaled steroids; Z79.52 Long term (current) use of systemic steroids; Z79.84 Long term (current) use of oral hypoglycemic drugs; Z79.899 Other long term (current) drug therapy; Z86.79 Personal history of other diseases of the circulatory system; Z86.69 Personal history of other diseases of the nervous system and sense organs; Z99.89 Dependence on other enabling machines and devices; Z82.61 Family history of arthritis; Z98.890 Other specified postprocedural states
CPT/HCPCS: 73610; 73630; 99283; 96372; J1885

== ENCOUNTER 2018-10-21 06:37 | Day surgery (SDC) | payer OTHER ==
[2018-10-19 12:02] VITALS: BMI 41.1
[~2018-10-21 06:37] MED LIST changes: -LACTATED RINGERS 1,000 ML IV ONE; +LACTATED RINGERS 1,000 ML IV SCH; +LIDOCAINE 1% 20 ML VIAL (10MG/ML) FOR IV START INTRADERMA PRN; +MIDAZOLAM (PF) 2 MG/2 ML VIAL IV PRN
[2018-10-21 07:12] VITALS: TEMP 96.4
[2018-10-21] MEDS ORDERED: LACTATED RINGERS 1,000 ML IV ONE ×2 (07:20)
[2018-10-21 07:31] LABS: Glucose,Whole Blood 140 mg/dL (75-99)
[2018-10-21] MEDS ORDERED: PROPOFOL 10 MG/ML 20 ML VIAL IV ONE (07:37)
[2018-10-21] MEDS ORDERED: GLYCOPYRROLATE 0.2 MG/ML 2 ML VIAL ONE (07:37)
[2018-10-21] MEDS ORDERED: LIDOCAINE 1% INJ 10MG/ML (20 ML MDV) ONE (07:37)
--- NOTE | 2018-10-21 07:40 | P.GSHP ---
History of Present Illness H&P Date: 10/21/18 CHIEF COMPLAINT: GERD and colon screen HISTORY OF PRESENT ILLNESS: The patient is a 48-year-old female who presents with gastroesophageal reflux disease and need for colon screen. Upper and lower endoscopy were offered for further evaluation and management. PAST MEDICAL HISTORY: Please see list. PAST SURGICAL HISTORY: Please see list. MEDICATIONS: Please see list. ALLERGIES: Please see list. SOCIAL HISTORY: No illicit drug use FAMILY HISTORY: No reports of Crohn disease or ulcerative colitis. REVIEW OF ORGAN SYSTEMS: CONSTITUTIONAL: No reports of fevers or chills. GI: Denies any blood in stools or constipation. PHYSICAL EXAM: VITAL SIGNS: Stable GENERAL: Well-developed pleasant in no acute distress. HEENT: No scleral icterus. Extraocular movements grossly intact. Moist buccal mucosa. NECK: Supple without lymphadenopathy. CHEST: Unlabored respirations. Equal bilateral excursions. CARDIOVASCULAR: Regular rate and rhythm. Distal 2+ pulses. ABDOMEN: Soft, nondistended. MUSCULOSKELETAL: No clubbing, cyanosis, or edema. ASSESSMENT: 1. Gastroesophageal reflux disease 2. Colon screen. PLAN: 1. Recommend proceeding with an upper and lower endoscopy Past Medical History Past Medical History: Asthma, Chest Pain / Angina, CVA/TIA, Diabetes Mellitus, Fibromyalgia, GERD/Reflux, Hyperlipidemia, Hypertension, Osteoarthritis (OA), Skin Disorder, Sleep Apnea/CPAP/BIPAP, Thyroid Disorder Additional Past Medical History / Comment(s): hx migraines, TIA 2015-weakness in hands and legs, two bulging disks, degenerative disk disease, neuopathy- upper and lower extremities, uses walker, psoriasis, nodules on thyroid, bursitis left hip , malfunctioning heart valve, SVT, has cpap machine, fx rt ankle using boot to ambulate History of Any Multi-Drug Resistant Organisms: None Reported Past Surgical History: Adenoidectomy, Cholecystectomy, EPS, Heart Catheterization, Orthopedic Surgery, Tonsillectomy Additional Past Surgical History / Comment(s): D&C, carpal tunnel surgery left , LT ARM SX FOR "PINCHED NERVE", LT THUMB TRIGGER FINGER, rae neuroma removed left foot, cardiac ablation, right ankle fx 01/2018 Past Anesthesia/Blood Transfusion Reactions: Previous Problems w/ Anesthesia, Motion Sickness Additional Past Anesthesia/Blood Transfusion Reaction / Comment(s): difficulty waking from anesthesia Smoking Status: Former smoker - Past Family History Father Family Medical History: Cancer Additional Family Medical History / Comment(s): skin Mother Family Medical History: Diabetes Mellitus, Hypertension, Osteoarthritis (OA) Additional Family Medical History / Comment(s): MURMUR Sister(s) Family Medical History: Cancer Additional Family Medical History / Comment(s): ovarian Medications and Allergies Home Medications Medication Instructions Recorded Confirmed Type Montelukast [Singulair] 10 mg PO HS 04/16/17 10/19/18 History Losartan Potassium [Cozaar] 25 mg PO DAILY 06/24/17 10/19/18 History Pioglitazone [Actos] 30 mg PO DAILY 09/15/17 10/19/18 History metFORMIN HCL [Glucophage] 1,000 mg PO AC-SUPPER 01/05/18 10/19/18 History metFORMIN HCL [Glucophage] 500 mg PO AC-BID 01/05/18 10/19/18 History Atorvastatin [Lipitor] 20 mg PO HS 04/07/18 10/19/18 History Hydrocortisone Cream 1 applic TOPICAL DAILY PRN 04/07/18 10/19/18 History [Hydrocortisone 2.5% Cream] metroNIDAZOLE 0.75% CREAM 1 applic TOPICAL DAILY PRN 04/07/18 10/19/18 History [Metrocream] Albuterol Inhaler [Ventolin Hfa 2 puff INHALATION RT-Q6H PRN 07/13/18 10/19/18 History Inhaler] Albuterol Nebulized [Ventolin 2.5 mg INHALATION RT-QID PRN 07/13/18 10/19/18 History Nebulized] Beclomethasone Dipropionate [Qvar 1 puff INHALATION RT-BID 07/13/18 10/19/18 History 80 mcg] Folic Acid 1 mg PO DAILY 07/13/18 10/19/18 History Liraglutide [Victoza 2-Bandar] 1.2 mg SQ DAILY 07/13/18 10/19/18 History Methotrexate Sodium [Methotrexate] 12.5 mg PO FR 07/13/18 10/19/18 History PARoxetine HCL [Paxil] 40 mg PO DAILY 07/13/18 10/19/18 History Dapagliflozin Propanediol [Farxiga] 10 mg PO DAILY 09/14/18 10/19/18 History Ferrous Sulfate [Feosol] 325 mg PO BID 09/14/18 10/19/18 History Gabapentin [Neurontin] 300 mg PO TID 09/14/18 10/19/18 History Ipratropium Nebulized [Atrovent 0.5 mg INHALATION RT-QID 09/14/18 10/19/18 History Nebulized 0.2 MG/ML] Omeprazole [PriLOSEC] 20 mg PO DAILY 09/14/18 10/19/18 History Triamcinolone 0.025% Cream 1 applic TOPICAL BID 09/14/18 10/19/18 History [Kenalog 0.025% Cream] Allergies Allergy/AdvReac Type Severity Reaction Status Date / Time adhesive Allergy red skin Verified 10/19/18 11:51 Iodinated Contrast- Oral and Allergy Itching Verified 10/19/18 11:51 IV Dye [Iodinated Contrast Media - IV Dye] metoprolol Allergy Chest Pain Verified 10/19/18 11:51 prednisone Allergy Rapid Verified 10/19/18 11:51 Heart Rate verapamil Allergy Anaphylaxis Verified 10/19/18 11:51 celecoxib [From Celebrex] AdvReac CAUSES GI Verified 10/19/18 11:51 BLEEDING cephalexin monohydrate AdvReac Vomiting Verified 10/19/18 11:51 [From Keflex] diphenhydramine AdvReac arm burned Verified 10/19/18 11:51 [From Benadryl] when given IV Penicillins AdvReac Nausea & Verified 10/19/18 11:51 Vomiting tramadol AdvReac Nausea & Verified 10/19/18 11:51 Vomiting Surgical - Exam Vital Signs Pulse Resp BP Pulse Ox 110 H 18 126/76 94 L 10/21/18 07:09 10/21/18 07:09 10/21/18 07:09 10/21/18 07:09 Results - Labs Abnormal Lab Results - Last 24 Hours (Table) 10/21/18 Range/Units 07:17 POC Glucose (mg/dL) 140 H (75-99) mg/dL
--- NOTE | 2018-10-21 07:49 | P.PCN ---
Date of Procedure: 10/21/18 Description of Procedure: PREOPERATIVE DIAGNOSIS: Gastroesophageal reflux disease. Morbid obesity. POSTOPERATIVE DIAGNOSIS: Morbid obesity. Gastritis. Gastroesophageal reflux disease. OPERATION: Esophagogastroduodenoscopy with biopsies along antrum. SURGEON: Roxana Alejo MD ANESTHESIA: MAC. INDICATIONS: The patient is a 48-year-old female who presents with a history of reflux disease. Benefits and risks of the procedure were described. Informed consent was obtained. DESCRIPTION: The patient was brought into the endoscopy suite and laid in the left lateral decubitus position. An Olympus gastroscope was passed along the posterior oropharynx down to the distal esophagus where the squamocolumnar junction was encountered at 40 cm from the incisors. The stomach was entered and no bile reflux was found. Additional findings are listed below. Biopsies with cold forceps were obtained of the antrum. The first through third portion of the duodenum was examined and unremarkable. Retroflexion of the scope confirmed Hill grade 3 lower esophageal valve. The squamocolumnar junction demonstrated LA grade A erosive esophagitis. The stomach was desufflated. The patient tolerated the procedure well. FINDINGS: Squamocolumnar junction 40 cm from the incisors. Diaphragmatic hiatus at 40 cm. Hiatal hernia, 4 cm Hill grade 4 lower esophageal valve. LA grade A erosive esophagitis. No active duodenitis. Chronic gastritis RECOMMENDATIONS: Upper endoscopy as needed.
--- NOTE | 2018-10-21 08:05 | P.PCN ---
Date of Procedure: 10/21/18 Description of Procedure: PREOPERATIVE DIAGNOSIS: Colonoscopy screening. POSTOPERATIVE DIAGNOSIS: Colonoscopy screening. OPERATION: Colonoscopy to the ileocecal valve and appendiceal orifice. SURGEON: Roxana Alejo MD. ANESTHESIA: MAC. INDICATIONS: The patient is a 48-year-old female who presents for colonoscopy screening. Benefits and risks were described and informed consent was obtained. DESCRIPTION OF PROCEDURE: The patient had undergone Gatorade, MiraLAX and Dulcolax prep. She had been brought into the operating room and laid in the left lateral decubitus position. After adequate intravenous sedation, the rectum was examined with 2% lidocaine jelly. No external hemorrhoids were encountered. The rectal tone was within normal limits. No lesions were palpated in the rectal vault. An Olympus colonoscope was advanced until the ileocecal valve and appendiceal orifice were clearly viewed. The prep was excellent with clear visualization of the mucosal folds. The scope was removed with visualization of each mucosal fold. No scattered diverticulosis was encountered. No colonic polyps were found. No evidence of focal colitis was found. Retroflexion of the scope demonstrated no internal hemorrhoids. The colon was desufflated. The patient had tolerated the procedure well. Withdrawal time was over 6 minutes. FINDINGS: No internal hemorrhoids No external prolapsed hemorrhoids. No scattered diverticulosis was encountered. No arteriovenous malformations. No adenomatous polyps. No focal colitis. RECOMMENDATIONS: Lower endoscopy in 10 years, 2028 Plan - Discharge Summary Discharge Rx Participant: Yes New Discharge Prescriptions: No Action Montelukast [Singulair] 10 mg PO HS Losartan Potassium [Cozaar] 25 mg PO DAILY Pioglitazone [Actos] 30 mg PO DAILY metFORMIN HCL [Glucophage] 500 mg PO AC-BID metFORMIN HCL [Glucophage] 1,000 mg PO AC-SUPPER metroNIDAZOLE 0.75% CREAM [Metrocream] 1 applic TOPICAL DAILY PRN PRN Reason: Skin Irritation Hydrocortisone Cream [Hydrocortisone 2.5% Cream] 1 applic TOPICAL DAILY PRN PRN Reason: Skin Irritation Atorvastatin [Lipitor] 20 mg PO HS Albuterol Nebulized [Ventolin Nebulized] 2.5 mg INHALATION RT-QID PRN PRN Reason: Shortness Of Breath Methotrexate Sodium [Methotrexate] 12.5 mg PO FR Folic Acid 1 mg PO DAILY Beclomethasone Dipropionate [Qvar 80 mcg] 1 puff INHALATION RT-BID Albuterol Inhaler [Ventolin Hfa Inhaler] 2 puff INHALATION RT-Q6H PRN PRN Reason: Shortness Of Breath PARoxetine HCL [Paxil] 40 mg PO DAILY Liraglutide [Victoza 2-Bandar] 1.2 mg SQ DAILY Omeprazole [PriLOSEC] 20 mg PO DAILY Ipratropium Nebulized [Atrovent Nebulized 0.2 MG/ML] 0.5 mg INHALATION RT-QID Ferrous Sulfate [Feosol] 325 mg PO BID Dapagliflozin Propanediol [Farxiga] 10 mg PO DAILY Gabapentin [Neurontin] 300 mg PO TID Triamcinolone 0.025% Cream [Kenalog 0.025% Cream] 1 applic TOPICAL BID Discharge Medication List Montelukast [Singulair] 10 mg PO HS 04/16/17 [History] Losartan Potassium [Cozaar] 25 mg PO DAILY 06/24/17 [History] Pioglitazone [Actos] 30 mg PO DAILY 09/15/17 [History] metFORMIN HCL [Glucophage] 1,000 mg PO AC-SUPPER 01/05/18 [History] metFORMIN HCL [Glucophage] 500 mg PO AC-BID 01/05/18 [History] Atorvastatin [Lipitor] 20 mg PO HS 04/07/18 [History] Hydrocortisone Cream [Hydrocortisone 2.5% Cream] 1 applic TOPICAL DAILY PRN 09/24 [History] metroNIDAZOLE 0.75% CREAM [Metrocream] 1 applic TOPICAL DAILY PRN 04/07/18 [ History] Albuterol Inhaler [Ventolin Hfa Inhaler] 2 puff INHALATION RT-Q6H PRN 07/13/18 [ History] Albuterol Nebulized [Ventolin Nebulized] 2.5 mg INHALATION RT-QID PRN 07/13/18 [ History] Beclomethasone Dipropionate [Qvar 80 mcg] 1 puff INHALATION RT-BID 07/13/18 [ History] Folic Acid 1 mg PO DAILY 07/13/18 [History] Liraglutide [Victoza 2-Bandar] 1.2 mg SQ DAILY 07/13/18 [History] Methotrexate Sodium [Methotrexate] 12.5 mg PO FR 07/13/18 [History] PARoxetine HCL [Paxil] 40 mg PO DAILY 07/13/18 [History] Dapagliflozin Propanediol [Farxiga] 10 mg PO DAILY 09/14/18 [History] Ferrous Sulfate [Feosol] 325 mg PO BID 09/14/18 [History] Gabapentin [Neurontin] 300 mg PO TID 09/14/18 [History] Ipratropium Nebulized [Atrovent Nebulized 0.2 MG/ML] 0.5 mg INHALATION RT-QID [History] Omeprazole [PriLOSEC] 20 mg PO DAILY 09/14/18 [History] Triamcinolone 0.025% Cream [Kenalog 0.025% Cream] 1 applic TOPICAL BID 09/14/18 [History] Follow up Appointment(s)/Referral(s): Roxana Alejo MD [STAFF PHYSICIAN] - As Needed Patient Instructions/Handouts: Gastritis (DC), Gastroesophageal Reflux Disease (DC) Discharge Disposition: HOME SELF-CARE
[2018-10-21 08:10] VITALS: RESP 16
[2018-10-21 08:29] VITALS: BP 135/90; PULSE 105
== END 2018-10-21 08:45 | disposition home or self-care (01) ==
LOC: ORWHC2ENDO 06:37
PROVIDERS: ATTEND Surgery Plastic and Reconstructive Surgery
DX: Z12.11 Encounter for screening for malignant neoplasm of colon (principal); K29.50 Unspecified chronic gastritis without bleeding; J45.909 Unspecified asthma, uncomplicated; M79.7 Fibromyalgia; E07.9 Disorder of thyroid, unspecified; E66.01 Morbid (severe) obesity due to excess calories; K21.9 Gastro-esophageal reflux disease without esophagitis; K44.9 Diaphragmatic hernia without obstruction or gangrene; K21.0 Gastro-esophageal reflux disease with esophagitis; I69.965 Other paralytic syndrome following unspecified cerebrovascular disease, bilateral; G47.33 Obstructive sleep apnea (adult) (pediatric); G82.50 Quadriplegia, unspecified; F32.9 Major depressive disorder, single episode, unspecified; F41.9 Anxiety disorder, unspecified; M06.9 Rheumatoid arthritis, unspecified; L40.9 Psoriasis, unspecified; E11.42 Type 2 diabetes mellitus with diabetic polyneuropathy; E78.5 Hyperlipidemia, unspecified; I10 Essential (primary) hypertension; M19.90 Unspecified osteoarthritis, unspecified site; Z87.891 Personal history of nicotine dependence; Z88.0 Allergy status to penicillin; Z88.1 Allergy status to other antibiotic agents; Z88.6 Allergy status to analgesic agent; Z88.8 Allergy status to other drugs, medicaments and biological substances; Z99.89 Dependence on other enabling machines and devices; Z79.899 Other long term (current) drug therapy; Z79.51 Long term (current) use of inhaled steroids; Z79.84 Long term (current) use of oral hypoglycemic drugs; Z83.3 Family history of diabetes mellitus; Z82.49 Family history of ischemic heart disease and other diseases of the circulatory system; Z88.5 Allergy status to narcotic agent; Z91.041 Radiographic dye allergy status; Z68.41 Body mass index [BMI] 40.0-44.9, adult
CPT/HCPCS: 88305; 43239; J2001; J2704; G0121

== ENCOUNTER 2018-11-05 18:29 | Observation (INO) | payer OTHER ==
[2018-11-05] MEDS ORDERED: SODIUM CHLORIDE 0.9% 1,000 ML IV STA (18:39)
[2018-11-05 19:06] LABS: Anisocytosis Slight; Basophils % (A) 0 %; Eosinophils # (A) 0.1 k/uL (0-0.7); Eosinophils % (A) 2 %; HCT 39.8 % (34.0-46.0); HGB 12.4 gm/dL (11.4-16.0); Hypochromasia Slight; Lymphocytes # (A) 1.3 k/uL (1.0-4.8); Lymphocytes % (A) 17 %; MCH 26.5 pg (25.0-35.0); MCHC 31.2 g/dL (31.0-37.0); Mean Platelet Volume 6.7; Monocytes # (A) 0.5 k/uL (0-1.0); Monocytes % (A) 6 %; Neutrophils # (A) 5.8 k/uL (1.3-7.7); Neutrophils % (A) 74 %; Platelet Count 177 k/uL (150-450); RBC 4.69 m/uL (3.80-5.40); RDW 18.2 % (11.5-15.5); WBC 7.9 k/uL (3.8-10.6)
[2018-11-05 19:15] LABS: Albumin 3.9 g/dL (3.5-5.0); Magnesium 1.7 mg/dL (1.6-2.3); Phosphorus 4.4 mg/dL (2.5-4.5); Total Bilirubin 0.5 mg/dL (0.2-1.3); Total Protein 6.9 g/dL (6.3-8.2)
[2018-11-05 19:18] LABS: Partial Thromboplastin Time 23.6 sec (22.0-30.0); Prothrombin Time 10.5 sec (9.0-12.0)
--- NOTE | 2018-11-05 19:20 | ED ---
Weakness HPI - General Chief complaint: Weakness Stated complaint: Weakness Time Seen by Provider: 11/05/18 18:39 Source: patient, EMS, RN notes reviewed, old records reviewed Mode of arrival: EMS Limitations: no limitations - History of Present Illness Initial comments: This is a 48-year-old female the ER for evaluation, not feeling well. Occasional chest pain weakness dizziness and lightheadedness. Symptoms times one week. Patient was out today and felt very lightheaded with chest pain and shortness of breath. No diaphoresis but again shortness of breath. Current chest pain and not feeling well. She has had history of similar symptoms but unrelated, unsure of cause. Patient is complicated in complex medical history high blood pressure control diabetes and CAD MD Complaint: generalized weakness, lack of energy -: hour(s) Location: generalized Severity: moderate Severity scale (1-10): 5 Consistency: constant Improves with: rest Worsens with: movement Context: history of similar Associated Symptoms: other (Low blood pressure) - Related Data Home Medications Medication Instructions Recorded Confirmed Montelukast [Singulair] 10 mg PO HS 04/16/17 11/05/18 Losartan Potassium [Cozaar] 25 mg PO DAILY 06/24/17 11/05/18 Pioglitazone [Actos] 30 mg PO DAILY 09/15/17 11/05/18 metFORMIN HCL [Glucophage] 1,000 mg PO AC-SUPPER 01/05/18 11/05/18 metFORMIN HCL [Glucophage] 500 mg PO AC-BID 01/05/18 11/05/18 Atorvastatin [Lipitor] 20 mg PO HS 04/07/18 11/05/18 metroNIDAZOLE 0.75% CREAM 1 applic TOPICAL DAILY PRN 04/07/18 11/05/18 [Metrocream] Albuterol Inhaler [Ventolin Hfa 2 puff INHALATION RT-Q6H PRN 07/13/18 11/05/18 Inhaler] Albuterol Nebulized [Ventolin 2.5 mg INHALATION RT-QID PRN 07/13/18 11/05/18 Nebulized] Beclomethasone Dipropionate [Qvar 1 puff INHALATION RT-BID 07/13/18 11/05/18 80 mcg] Liraglutide [Victoza 2-Bandar] 1.2 mg SQ DAILY 07/13/18 11/05/18 Dapagliflozin Propanediol [Farxiga] 10 mg PO DAILY 09/14/18 11/05/18 Ferrous Sulfate [Feosol] 325 mg PO BID 09/14/18 11/05/18 Gabapentin [Neurontin] 600 mg PO TID 11/05/18 11/05/18 PARoxetine [Paxil] 20 mg PO DAILY 11/05/18 11/05/18 Allergies Allergy/AdvReac Type Severity Reaction Status Date / Time adhesive Allergy red skin Verified 11/05/18 19:38 Iodinated Contrast- Oral and Allergy Itching Verified 11/05/18 19:38 IV Dye [Iodinated Contrast Media - IV Dye] metoprolol Allergy Chest Pain Verified 11/05/18 19:38 prednisone Allergy Rapid Verified 11/05/18 19:38 Heart Rate verapamil Allergy Anaphylaxis Verified 11/05/18 19:38 celecoxib [From Celebrex] AdvReac CAUSES GI Verified 11/05/18 19:38 BLEEDING cephalexin monohydrate AdvReac Vomiting Verified 11/05/18 19:38 [From Keflex] diphenhydramine AdvReac arm burned Verified 11/05/18 19:38 [From Benadryl] when given IV Penicillins AdvReac Nausea & Verified 11/05/18 19:38 Vomiting tramadol AdvReac Nausea & Verified 11/05/18 19:38 Vomiting Review of Systems ROS Statement: Those systems with pertinent positive or pertinent negative responses have been documented in the HPI. ROS Other: All systems not noted in ROS Statement are negative. Past Medical History Past Medical History: COPD, Diabetes Mellitus, Hypertension Additional Past Medical History / Comment(s): neuoropathy History of Any Multi-Drug Resistant Organisms: None Reported Past Surgical History: Adenoidectomy, Cholecystectomy, Tonsillectomy Additional Past Surgical History / Comment(s): D&C, carpal tunnel surgery left , LT ARM SX FOR "PINCHED NERVE", LT THUMB TRIGGER FINGER, rae neuroma removed left foot, cardiac ablation, right ankle fx 01/2018 Past Anesthesia/Blood Transfusion Reactions: Previous Problems w/ Anesthesia, Motion Sickness Additional Past Anesthesia/Blood Transfusion Reaction / Comment(s): difficulty waking from anesthesia Past Psychological History: No Psychological Hx Reported Smoking Status: Former smoker Past Alcohol Use History: None Reported - Past Family History Father Family Medical History: Cancer Additional Family Medical History / Comment(s): skin Mother Family Medical History: Diabetes Mellitus, Hypertension, Osteoarthritis (OA) Additional Family Medical History / Comment(s): MURMUR Sister(s) Family Medical History: Cancer Additional Family Medical History / Comment(s): ovarian General Exam Limitations: no limitations General appearance: alert, in no apparent distress Head exam: Present: atraumatic, normocephalic, normal inspection Eye exam: Present: normal appearance, PERRL, EOMI. Absent: scleral icterus, conjunctival injection, periorbital swelling ENT exam: Present: normal exam, mucous membranes moist Neck exam: Present: normal inspection. Absent: tenderness, meningismus, lymphadenopathy Respiratory exam: Present: normal lung sounds bilaterally. Absent: respiratory distress, wheezes, rales, rhonchi, stridor Cardiovascular Exam: Present: normal rhythm, tachycardia, normal heart sounds. Absent: systolic murmur, diastolic murmur, rubs, gallop, clicks GI/Abdominal exam: Present: soft, normal bowel sounds. Absent: distended, tenderness, guarding, rebound, rigid Extremities exam: Present: normal inspection, full ROM, normal capillary refill. Absent: tenderness, pedal edema, joint swelling, calf tenderness Back exam: Present: normal inspection Neurological exam: Present: alert, oriented X3, CN II-XII intact Psychiatric exam: Present: normal affect, normal mood Skin exam: Present: warm, dry, intact, normal color. Absent: rash Course Vital Signs 11/05/18 18:37 Temperature 98.5 F Pulse Rate 106 H Respiratory 19 Rate Blood Pressure 127/85 O2 Sat by Pulse 100 Oximetry - Reevaluation(s) Reevaluation #1: 11/05/18 21:18 Medical records reviewed Reevaluation #2: 11/05/18 21:18 This is a was not feeling well shortness of breath and chest pain Reevaluation #3: 11/05/18 21:19 Patient admits to still feeling weak EKG Findings - EKG Comments: EKG Findings:: EKG shows sinus rhythm rate 100, [place] 150, QRS 74, QTC 443 Medical Decision Making - Medical Decision Making 48 female the ER for evaluation. Patient does have positive weakness, generalized weakness occasional chest pain shortness of breath. Patient be admitted for cardiac observation - Lab Data Result diagrams: 11/05/18 18:48 11/05/18 18:48 Lab Results 11/05/18 11/05/18 11/05/18 Range/Units 18:48 18:48 18:48 WBC 7.9 (3.8-10.6) k/uL RBC 4.69 (3.80-5.40) m/uL Hgb 12.4 (11.4-16.0) gm/dL Hct 39.8 (34.0-46.0) % MCV 85.0 (80.0-100.0) fL MCH 26.5 (25.0-35.0) pg MCHC 31.2 (31.0-37.0) g/dL RDW 18.2 H (11.5-15.5) % Plt Count 177 (150-450) k/uL Neutrophils % 74 % Lymphocytes % 17 % Monocytes % 6 % Eosinophils % 2 % Basophils % 0 % Neutrophils # 5.8 (1.3-7.7) k/uL Lymphocytes # 1.3 (1.0-4.8) k/uL Monocytes # 0.5 (0-1.0) k/uL Eosinophils # 0.1 (0-0.7) k/uL Basophils # 0.0 (0-0.2) k/uL Hypochromasia Slight Anisocytosis Slight PT 10.5 (9.0-12.0) sec INR 1.0 (<1.2) APTT 23.6 (22.0-30.0) sec Sodium 139 (137-145) mmol/L Potassium 4.0 (3.5-5.1) mmol/L Chloride 104 (98-107) mmol/L Carbon Dioxide 24 (22-30) mmol/L Anion Gap 11 mmol/L BUN 22 H (7-17) mg/dL Creatinine 0.91 (0.52-1.04) mg/dL Est GFR (CKD-EPI)AfAm 85 (>60 ml/min/1.73 sqM) Est GFR (CKD-EPI)NonAf 74 (>60 ml/min/1.73 sqM) Glucose 152 H (74-99) mg/dL Calcium 9.0 (8.4-10.2) mg/dL Phosphorus 4.4 (2.5-4.5) mg/dL Magnesium 1.7 (1.6-2.3) mg/dL Total Bilirubin 0.5 (0.2-1.3) mg/dL AST 22 (14-36) U/L ALT 35 (9-52) U/L Alkaline Phosphatase 90 (38-126) U/L Troponin I (0.000-0.034) ng/mL Total Protein 6.9 (6.3-8.2) g/dL Albumin 3.9 (3.5-5.0) g/dL TSH 1.000 (0.465-4.680) mIU/L 11/05/18 Range/Units 18:48 WBC (3.8-10.6) k/uL RBC (3.80-5.40) m/uL Hgb (11.4-16.0) gm/dL Hct (34.0-46.0) % MCV (80.0-100.0) fL MCH (25.0-35.0) pg MCHC (31.0-37.0) g/dL RDW (11.5-15.5) % Plt Count (150-450) k/uL Neutrophils % % Lymphocytes % % Monocytes % % Eosinophils % % Basophils % % Neutrophils # (1.3-7.7) k/uL Lymphocytes # (1.0-4.8) k/uL Monocytes # (0-1.0) k/uL Eosinophils # (0-0.7) k/uL Basophils # (0-0.2) k/uL Hypochromasia Anisocytosis PT (9.0-12.0) sec INR (<1.2) APTT (22.0-30.0) sec Sodium (137-145) mmol/L Potassium (3.5-5.1) mmol/L Chloride (98-107) mmol/L Carbon Dioxide (22-30) mmol/L Anion Gap mmol/L BUN (7-17) mg/dL Creatinine (0.52-1.04) mg/dL Est GFR (CKD-EPI)AfAm (>60 ml/min/1.73 sqM) Est GFR (CKD-EPI)NonAf (>60 ml/min/1.73 sqM) Glucose (74-99) mg/dL Calcium (8.4-10.2) mg/dL Phosphorus (2.5-4.5) mg/dL Magnesium (1.6-2.3) mg/dL Total Bilirubin (0.2-1.3) mg/dL AST (14-36) U/L ALT (9-52) U/L Alkaline Phosphatase (38-126) U/L Troponin I <0.012 (0.000-0.034) ng/mL Total Protein (6.3-8.2) g/dL Albumin (3.5-5.0) g/dL TSH (0.465-4.680) mIU/L - Radiology Data Radiology results: report reviewed (Chest x-rays negative for acute disease), image reviewed Disposition Clinical Impression: Chest pain Disposition: ADMITTED IP TO THIS [facility] Condition: Undetermined Is patient prescribed a controlled substance at d/c from ED?: No Referrals: Cuca Iqbal MD [Primary Care Provider] - 1-2 days
--- NOTE | 2018-11-05 20:49 | XR ---
EXAMINATION TYPE: XR chest 2V DATE OF EXAM: 11/05/2018 COMPARISON: 08/01/2018 HISTORY: Weakness TECHNIQUE: Frontal and lateral views of the chest are obtained. FINDINGS: There is no heart failure nor confluent pneumonic infiltrate. Costophrenic angles are sanchez r. Bony thorax is intact. IMPRESSION: No active cardiopulmonary disease. No change.
[2018-11-05] MEDS ORDERED: HEPARIN SODIUM,PORCINE 5,000 UNIT/ML 1 ML VIAL IV PRN (21:16)
[2018-11-05] MEDS ORDERED: HEPARIN SODIUM,PORCINE 5,000 UNIT/ML 1 ML VIAL IV ONE (21:16)
[2018-11-05] MEDS ORDERED: NITROGLYCERIN SL TABS 0.4 MG TAB SUBLINGUAL PRN (21:16)
[2018-11-05] MEDS ORDERED: HEPARIN SOD,PORK IN 0.45% NACL 25,000 UNIT in 0.45% NACL 1 250ML.BAG IV SCH (21:30)
[2018-11-05 22:06] LABS: Appearance,Urine Clear (Clear); Bilirubin,Urine Negative (Negative); Blood,Urine Negative (Negative); Color,Urine Light Yellow; Glucose,Urine (UA) 4+ (Negative); Ketones,Urine Negative (Negative); Leukocyte Esterase,Urine Negative (Negative); Nitrite,Urine Negative (Negative); Protein,Urine Negative (Negative); Specific Gravity,Urine 1.011 (1.001-1.035); Urobilinogen,Urine <2.0 mg/dL (<2.0)
[2018-11-06] MEDS ORDERED: ONDANSETRON 4 MG/2 ML VIAL IVP PRN (00:14)
[2018-11-06] MEDS ORDERED: MORPHINE SULFATE 2 MG/ML SYRINGE IVP PRN (00:53)
[2018-11-06 06:08] LABS: Platelet Count 159 k/uL (150-450)
[2018-11-06 06:29] LABS: Cholesterol 148 mg/dL (<200); HDL Cholesterol 30 mg/dL (40-60); LDL Cholesterol,Calculated 71 mg/dL (0-99); Triglycerides 237 mg/dL (<150)
[2018-11-06 06:51] LABS: Glucose,Whole Blood 145 mg/dL (75-99)
[2018-11-06] MEDS ORDERED: ASPIRIN 325 MG TAB PO SCH (09:00)
[2018-11-06] MEDS ORDERED: ATORVASTATIN 80 MG TAB PO SCH (09:00)
--- NOTE | 2018-11-06 09:35 | P.CRDCN ---
History of Present Illness Consult date: 11/06/18 History of present illness: This is a 48-year-old female with history of hypertension, diabetes, asthma fibromyalgias, sleep apnea, and also mild dyslipidemia. Patient is to be followed with a blood bank attendant at [facility]. Patient had several admissions over the last year to this hospital the last one being in June. Yesterday patient was feeling weak and tired and noted that her blood pressure was running low. She called the paramedics. She also having some chest heaviness all over the precordium. The chest pain increases on deep breathing and movements. Her EKGs did not reveal any acute changes. Cardiac enzymes are negative. Her chest pains appear to be atypical. She had a previous stress echo which was negative last year. Were not planning any further cardiac workup at this time. We will be seeing her on when necessary basis Past Medical History Past Medical History: COPD, Diabetes Mellitus, Hypertension Additional Past Medical History / Comment(s): neuoropathy History of Any Multi-Drug Resistant Organisms: None Reported Past Surgical History: Adenoidectomy, Cholecystectomy, Tonsillectomy Additional Past Surgical History / Comment(s): D&C, carpal tunnel surgery left , LT ARM SX FOR "PINCHED NERVE", LT THUMB TRIGGER FINGER, rae neuroma removed left foot, cardiac ablation, right ankle fx 01/2018 no surgery Past Anesthesia/Blood Transfusion Reactions: Previous Problems w/ Anesthesia, Motion Sickness Additional Past Anesthesia/Blood Transfusion Reaction / Comment(s): difficulty waking from anesthesia Smoking Status: Former smoker - Past Family History Father Family Medical History: Cancer Additional Family Medical History / Comment(s): skin Mother Family Medical History: Diabetes Mellitus, Hypertension, Osteoarthritis (OA) Additional Family Medical History / Comment(s): MURMUR Sister(s) Family Medical History: Cancer Additional Family Medical History / Comment(s): ovarian Medications and Allergies Home Medications Medication Instructions Recorded Confirmed Type Montelukast [Singulair] 10 mg PO HS 04/16/17 11/05/18 History Losartan Potassium [Cozaar] 25 mg PO DAILY 06/24/17 11/05/18 History Pioglitazone [Actos] 30 mg PO DAILY 09/15/17 11/05/18 History metFORMIN HCL [Glucophage] 1,000 mg PO AC-SUPPER 01/05/18 11/05/18 History metFORMIN HCL [Glucophage] 500 mg PO AC-BID 01/05/18 11/05/18 History Atorvastatin [Lipitor] 20 mg PO HS 04/07/18 11/05/18 History metroNIDAZOLE 0.75% CREAM 1 applic TOPICAL DAILY PRN 04/07/18 11/05/18 History [Metrocream] Albuterol Inhaler [Ventolin Hfa 2 puff INHALATION RT-Q6H PRN 07/13/18 11/05/18 History Inhaler] Albuterol Nebulized [Ventolin 2.5 mg INHALATION RT-QID PRN 07/13/18 11/05/18 History Nebulized] Beclomethasone Dipropionate [Qvar 1 puff INHALATION RT-BID 07/13/18 11/05/18 History 80 mcg] Liraglutide [Victoza 2-Bandar] 1.2 mg SQ DAILY 07/13/18 11/05/18 History Dapagliflozin Propanediol [Farxiga] 10 mg PO DAILY 09/14/18 11/05/18 History Ferrous Sulfate [Feosol] 325 mg PO BID 09/14/18 11/05/18 History Folic Acid 0.4 mg PO DAILY 11/05/18 11/05/18 History Gabapentin [Neurontin] 300 mg PO TID 11/05/18 11/05/18 History Methotrexate Sodium [Methotrexate] 12.5 mg PO Q7D 11/05/18 11/05/18 History PARoxetine [Paxil] 20 mg PO DAILY 11/05/18 11/05/18 History Allergies Allergy/AdvReac Type Severity Reaction Status Date / Time adhesive Allergy red skin Verified 11/05/18 23:14 Iodinated Contrast- Oral and Allergy Itching Verified 11/05/18 23:14 IV Dye [Iodinated Contrast Media - IV Dye] metoprolol Allergy Chest Pain Verified 11/05/18 23:14 prednisone Allergy Rapid Verified 11/05/18 23:14 Heart Rate verapamil Allergy Anaphylaxis Verified 11/05/18 23:14 celecoxib [From Celebrex] AdvReac CAUSES GI Verified 11/05/18 23:14 BLEEDING cephalexin monohydrate AdvReac Vomiting Verified 11/05/18 23:14 [From Keflex] diphenhydramine AdvReac arm burned Verified 11/05/18 23:14 [From Benadryl] when given IV Penicillins AdvReac Nausea & Verified 11/05/18 23:14 Vomiting tramadol AdvReac Nausea & Verified 11/05/18 23:14 Vomiting Physical Exam Vitals: Vital Signs Temp Pulse Pulse Resp BP BP Pulse Ox 11/06/18 08:00 97.6 F 91 16 111/76 99 11/06/18 03:52 16 11/06/18 03:38 98.4 F 90 16 94/62 98 11/05/18 23:45 98.1 F 109 H 16 148/98 99 11/05/18 21:54 88 16 132/83 100 11/05/18 18:37 98.5 F 106 H 19 127/85 100 Intake and Output 11/05/18 11/06/18 11/06/18 22:59 06:59 14:59 Intake Total 58.556 Balance 58.556 Intake: Intake, IV Titration 58.556 Amount Heparin Sod,Pork in 0.45% 58.556 NaCl 25,000 unit In 0.45 % NaCl 1 250ml.bag @ 8 UNITS/KG/HR 9.27 mls/hr IV .Q24H [facility] Rx#: [id number] Other: Voiding Method Toilet Toilet # Voids 1 Weight 115.938 kg GENERAL EXAM: Patient is alert and oriented and doesn't appear to be in any acute distress. Obese. HEENT: Normocephalic. Normal reaction of pupils, equal size, normal range of extraocular motion. No erythema or exudates in the throat. NECK: No masses, no nuchal rigidity. CHEST: No chest wall deformity. LUNGS: Equal air entry with no crackles or wheeze. HEART: S1 and S2 normal with no audible mumurs or gallops. Regular rhythm, femorals equal on both sides.. ABDOMEN: No hepatosplenomegaly, normal bowel sounds, no guarding or rigidity. SKIN: No rashes CENTRAL NERVOUS SYSTEM: No focal deficits. EXTREMITIES: No cyanosis, clubbing or edema. Results 11/06/18 05:46 11/05/18 18:48 Cardiac Enzymes 11/05/18 11/05/18 11/06/18 Range/Units 18:48 18:48 00:40 AST 22 (14-36) U/L Troponin I <0.012 <0.012 (0.000-0.034) ng/mL 11/06/18 Range/Units 05:46 AST (14-36) U/L Troponin I <0.012 (0.000-0.034) ng/mL Coagulation 11/05/18 11/06/18 Range/Units 18:48 03:35 PT 10.5 (9.0-12.0) sec APTT 23.6 35.4 H (22.0-30.0) sec Lipids 11/06/18 Range/Units 05:46 Triglycerides 237 H (<150) mg/dL Cholesterol 148 (<200) mg/dL HDL Cholesterol 30 L (40-60) mg/dL CBC 11/05/18 11/06/18 Range/Units 18:48 05:46 WBC 7.9 (3.8-10.6) k/uL RBC 4.69 (3.80-5.40) m/uL Hgb 12.4 (11.4-16.0) gm/dL Hct 39.8 (34.0-46.0) % Plt Count 177 159 (150-450) k/uL Comprehensive Metabolic Panel 11/05/18 Range/Units 18:48 Sodium 139 (137-145) mmol/L Potassium 4.0 (3.5-5.1) mmol/L Chloride 104 (98-107) mmol/L Carbon Dioxide 24 (22-30) mmol/L BUN 22 H (7-17) mg/dL Creatinine 0.91 (0.52-1.04) mg/dL Glucose 152 H (74-99) mg/dL Calcium 9.0 (8.4-10.2) mg/dL AST 22 (14-36) U/L ALT 35 (9-52) U/L Alkaline Phosphatase 90 (38-126) U/L Total Protein 6.9 (6.3-8.2) g/dL Albumin 3.9 (3.5-5.0) g/dL Current Medications Generic Name Dose Route Start Last Admin Trade Name Freq PRN Reason Stop Dose Admin Aspirin 325 mg 11/06/18 09:00 Aspirin PO DAILY [facility] Atorvastatin Calcium 80 mg 11/06/18 09:00 Lipitor PO DAILY [facility] Heparin Sodium (Porcine) 0 unit 11/05/18 21:16 11/06/18 04:10 Heparin IV 4,000 unit Q6HR PRN Administration Low PTT Protocol Heparin Sodium/Sodium Chloride 250 mls @ 9.27 mls/hr 11/05/18 21:30 11/06/18 04:11 25,000 unit/ Sodium Chloride IV 11.6 units/kg/hr .Q24H [facility] 13.45 mls/hr Titration Protocol 8 UNITS/KG/HR Morphine Sulfate 2 mg 11/06/18 00:53 11/06/18 01:07 Morphine Sulfate (Inj) IVP 11/07/18 00:00 2 mg Q4H PRN Administration Pain/Discomfort Nitroglycerin 0.4 mg 11/05/18 21:16 Nitrostat SUBLINGUAL Q5M PRN Chest Pain Ondansetron HCl 4 mg 11/06/18 00:14 Zofran IVP Q6HR PRN Nausea And Vomiting Intake and Output 11/05/18 11/06/18 11/06/18 22:59 06:59 14:59 Intake Total 58.556 Balance 58.556 Intake: Intake, IV Titration 58.556 Amount Heparin Sod,Pork in 0.45% 58.556 NaCl 25,000 unit In 0.45 % NaCl 1 250ml.bag @ 8 UNITS/KG/HR 9.27 mls/hr IV .Q24H [facility] Rx#: [id number] Other: Voiding Method Toilet Toilet # Voids 1 Weight 115.938 kg 11/06/18 05:46 11/05/18 18:48 EKG Interpretations (text) Sinus rhythm Assessment and Plan (1) Atypical chest pain Current Visit: No Status: Acute Code(s): R07.89 - OTHER CHEST PAIN SNOMED Code(s): 219628281 (2) Chronic pain syndrome Current Visit: No Status: Chronic Code(s): G89.4 - CHRONIC PAIN SYNDROME SNOMED Code(s): 484273977 Plan: Patient's chest pains are atypical. EKGs and cardiac enzymes are negative. No further cardiac workup at this time. We will be seeing her on a when necessary basis
--- NOTE | 2018-11-06 10:35 | P.HPIM ---
History of Present Illness H&P Date: 11/06/18 This very pleasant 48-year-old female past medical history significant for multiple admissions the past for similar complaints, history of hypertension, diabetes, fibromyalgia, sleep apnea, hyperlipidemia comes in for above- mentioned complaint. The patient says that she's been feeling weak and tired and blood pressure is running low. She was also having some chest pain all over therefore she called EMS. Patient says that she's been having cough for the past 1 week which is nonproductive also she was feeling weak and fatigued. She is not producing any phlegm. She does not have any fevers or chills at home. If she feels congested in her head and her maxillary sinuses. He also feels heavy and something sticking in her chest but not coming out. ER course-she had workup in the ER including EKG we did not reveal any acute changes, troponins were negative. Patient was thus admitted to the hospitalist service a further management Review of Systems All systems: negative Past Medical History Past Medical History: COPD, Diabetes Mellitus, Hypertension Additional Past Medical History / Comment(s): neuoropathy History of Any Multi-Drug Resistant Organisms: None Reported Past Surgical History: Adenoidectomy, Cholecystectomy, Tonsillectomy Additional Past Surgical History / Comment(s): D&C, carpal tunnel surgery left , LT ARM SX FOR "PINCHED NERVE", LT THUMB TRIGGER FINGER, rae neuroma removed left foot, cardiac ablation, right ankle fx 01/2018 no surgery Past Anesthesia/Blood Transfusion Reactions: Previous Problems w/ Anesthesia, Motion Sickness Additional Past Anesthesia/Blood Transfusion Reaction / Comment(s): difficulty waking from anesthesia Smoking Status: Former smoker - Past Family History Father Family Medical History: Cancer Additional Family Medical History / Comment(s): skin Mother Family Medical History: Diabetes Mellitus, Hypertension, Osteoarthritis (OA) Additional Family Medical History / Comment(s): MURMUR Sister(s) Family Medical History: Cancer Additional Family Medical History / Comment(s): ovarian Medications and Allergies Home Medications Medication Instructions Recorded Confirmed Type Montelukast [Singulair] 10 mg PO HS 04/16/17 11/05/18 History Losartan Potassium [Cozaar] 25 mg PO DAILY 06/24/17 11/05/18 History Pioglitazone [Actos] 30 mg PO DAILY 09/15/17 11/05/18 History metFORMIN HCL [Glucophage] 1,000 mg PO AC-SUPPER 01/05/18 11/05/18 History metFORMIN HCL [Glucophage] 500 mg PO AC-BID 01/05/18 11/05/18 History Atorvastatin [Lipitor] 20 mg PO HS 04/07/18 11/05/18 History metroNIDAZOLE 0.75% CREAM 1 applic TOPICAL DAILY PRN 04/07/18 11/05/18 History [Metrocream] Albuterol Inhaler [Ventolin Hfa 2 puff INHALATION RT-Q6H PRN 07/13/18 11/05/18 History Inhaler] Albuterol Nebulized [Ventolin 2.5 mg INHALATION RT-QID PRN 07/13/18 11/05/18 History Nebulized] Beclomethasone Dipropionate [Qvar 1 puff INHALATION RT-BID 07/13/18 11/05/18 History 80 mcg] Liraglutide [Victoza 2-Bandar] 1.2 mg SQ DAILY 07/13/18 11/05/18 History Dapagliflozin Propanediol [Farxiga] 10 mg PO DAILY 09/14/18 11/05/18 History Ferrous Sulfate [Feosol] 325 mg PO BID 09/14/18 11/05/18 History Folic Acid 0.4 mg PO DAILY 11/05/18 11/05/18 History Gabapentin [Neurontin] 300 mg PO TID 11/05/18 11/05/18 History Methotrexate Sodium [Methotrexate] 12.5 mg PO Q7D 11/05/18 11/05/18 History PARoxetine [Paxil] 20 mg PO DAILY 11/05/18 11/05/18 History Allergies Allergy/AdvReac Type Severity Reaction Status Date / Time adhesive Allergy red skin Verified 11/05/18 23:14 Iodinated Contrast- Oral and Allergy Itching Verified 11/05/18 23:14 IV Dye [Iodinated Contrast Media - IV Dye] metoprolol Allergy Chest Pain Verified 11/05/18 23:14 prednisone Allergy Rapid Verified 11/05/18 23:14 Heart Rate verapamil Allergy Anaphylaxis Verified 11/05/18 23:14 celecoxib [From Celebrex] AdvReac CAUSES GI Verified 11/05/18 23:14 BLEEDING cephalexin monohydrate AdvReac Vomiting Verified 11/05/18 23:14 [From Keflex] diphenhydramine AdvReac arm burned Verified 11/05/18 23:14 [From Benadryl] when given IV Penicillins AdvReac Nausea & Verified 11/05/18 23:14 Vomiting tramadol AdvReac Nausea & Verified 11/05/18 23:14 Vomiting Physical Exam Vitals: Vital Signs Temp Pulse Pulse Resp BP BP Pulse Ox 11/06/18 08:00 97.6 F 91 16 111/76 99 11/06/18 03:52 16 11/06/18 03:38 98.4 F 90 16 94/62 98 11/05/18 23:45 98.1 F 109 H 16 148/98 99 11/05/18 21:54 88 16 132/83 100 11/05/18 18:37 98.5 F 106 H 19 127/85 100 Intake and Output 11/05/18 11/06/18 11/06/18 22:59 06:59 14:59 Intake Total 58.556 Balance 58.556 Intake: Intake, IV Titration 58.556 Amount Heparin Sod,Pork in 0.45% 58.556 NaCl 25,000 unit In 0.45 % NaCl 1 250ml.bag @ 8 UNITS/KG/HR 9.27 mls/hr IV .Q24H [facility] Rx#: [id number] Other: Voiding Method Toilet Toilet # Voids 1 Weight 115.938 kg On exam, alert and oriented x3. HEENT: Conjunctivae normal. eyes normal. She is having tenderness in the frontal sinuses on the maxillary sinuses NECK: No JVD. No thyroid enlargement. No LNs CARDIOVASCULAR: S1 and S2 heard, reproducible tenderness RESPIRATION: Breath sounds diminished in the bases. No rhonchi or crackles. No bronchial breathing. ABDOMEN: Soft, nontender . No guarding. no masses palpable. No ascites, No hepatosplenomegaly.Bowel sounds heard. LEGS: No edema. no swelling NERVOUS SYSTEM: Cranial N 2-12 grossly normal. Moves all 4 limbs. No focal deficits. No sensory deficit. No signs of cerebellar dysfucntion. Skin: no ulcer no rash Joints: No active swelling. No inflammation. Lymphatic system. No LN neck axilla or groin. Results CBC & Chem 7: 11/06/18 05:46 11/05/18 18:48 Labs: Abnormal Lab Results - Last 24 Hours (Table) 11/05/18 11/05/18 11/05/18 Range/Units 18:48 18:48 21:45 RDW 18.2 H (11.5-15.5) % APTT (22.0-30.0) sec BUN 22 H (7-17) mg/dL Glucose 152 H (74-99) mg/dL POC Glucose (mg/dL) (75-99) mg/dL Triglycerides (<150) mg/dL HDL Cholesterol (40-60) mg/dL Urine Glucose (UA) 4+ H (Negative) 11/06/18 11/06/18 11/06/18 Range/Units 03:35 05:46 06:45 RDW (11.5-15.5) % APTT 35.4 H (22.0-30.0) sec BUN (7-17) mg/dL Glucose (74-99) mg/dL POC Glucose (mg/dL) 145 H (75-99) mg/dL Triglycerides 237 H (<150) mg/dL HDL Cholesterol 30 L (40-60) mg/dL Urine Glucose (UA) (Negative) Microbiology - Last 24 Hours (Table) 11/05/18 21:45 Urine Culture - Preliminary Urine,Voided Thrombosis Risk Factor Assmnt - Choose All That Apply Any of the Below Risk Factors Present?: Yes Each Factor Represents 1 point: Abnormal pulmonary function (COPD), Age 41-60 years, Hx of IBD, Obesity (BMI >25), Varicose veins Other Risk Factors: No Other congenital or acquired thrombophilia - If yes, enter type in comment: No Thrombosis Risk Factor Assessment Total Risk Factor Score: 5 Thrombosis Risk Factor Assessment Level: High Risk Assessment and Plan Assessment: - Chest pain probably [place] skeleton - Maxillary sinusitis - Probably viral flu - History of diabetes - History of hypertension - History of sleep apnea - History of dyslipidemia Plan - We will admit the patient to [facility] with telemetry under observation - Cardiology has been consulted - We'll resume the patient's home medications - Her for d-dimer level to make sure she is not having a PE which is low and probably get this time the symptoms look more like due to viral infection. She is also having reproducible tenderness in her chest maxillary and frontal area. - We'll put her on Mucinex and azithromycin - DVT and GI prophylaxis - We'll order for lab work in the morning - Patient is full code Time with Patient: Greater than 30
--- NOTE | 2018-11-06 11:37 | P.DS ---
Providers Date of admission: 11/05/18 21:16 Expected date of discharge: 11/06/18 Attending physician: Ciro Flores Consults: 11/05/18 21:16 Consult Physician Urgent Consulting Provider: Allan Chang Consult Reason/Comments: cp Do you want consulting provider notified?: Yes Primary care physician: [facility] Course: Very pleasant 48-year-old female with a past medical history is significant multiple admissions in the past, hypertension, diabetes, nausea, sleep apnea, hyperlipidemia comes in for chest pain. She was also having low blood pressure apparently the reason why she called EMS. According to the EMS blood pressures were stable. She wa evaluated by cardiology who suggested that chest pain is probably noncardiac and that further testing is not required. Patient was cleared from cardiology point of view. D-dimer was ordered which was negative as well During examination the patient was found to have symptoms consistent with sinusitis with tenderness in her frontal and maxillary sinus. She is also having cough which is dry and says that she feels something is stuck in her chest and was not able to,. 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 Patient Condition at Discharge: Undetermined Plan - Discharge Summary Discharge Rx Participant: No New Discharge Prescriptions: New Azithromycin [Zithromax Z-pack] 0 mg PO DIRECTED #6 tab guaiFENesin-DM 600/30MG [Mucinex Dm] 1 each PO Q12HR #20 tab.er.12h Continue Montelukast [Singulair] 10 mg PO HS Losartan Potassium [Cozaar] 25 mg PO DAILY Pioglitazone [Actos] 30 mg PO DAILY metFORMIN HCL [Glucophage] 500 mg PO AC-BID metFORMIN HCL [Glucophage] 1,000 mg PO AC-SUPPER metroNIDAZOLE 0.75% CREAM [Metrocream] 1 applic TOPICAL DAILY PRN PRN Reason: Skin Irritation Atorvastatin [Lipitor] 20 mg PO HS Albuterol Nebulized [Ventolin Nebulized] 2.5 mg INHALATION RT-QID PRN PRN Reason: Shortness Of Breath Beclomethasone Dipropionate [Qvar 80 mcg] 1 puff INHALATION RT-BID Albuterol Inhaler [Ventolin Hfa Inhaler] 2 puff INHALATION RT-Q6H PRN PRN Reason: Shortness Of Breath Liraglutide [Victoza 2-Bandar] 1.2 mg SQ DAILY Ferrous Sulfate [Feosol] 325 mg PO BID Dapagliflozin Propanediol [Farxiga] 10 mg PO DAILY PARoxetine [Paxil] 20 mg PO DAILY Gabapentin [Neurontin] 300 mg PO TID Folic Acid 0.4 mg PO DAILY Methotrexate Sodium [Methotrexate] 12.5 mg PO Q7D Discharge Medication List Montelukast [Singulair] 10 mg PO HS 04/16/17 [History] Losartan Potassium [Cozaar] 25 mg PO DAILY 06/24/17 [History] Pioglitazone [Actos] 30 mg PO DAILY 09/15/17 [History] metFORMIN HCL [Glucophage] 1,000 mg PO AC-SUPPER 01/05/18 [History] metFORMIN HCL [Glucophage] 500 mg PO AC-BID 01/05/18 [History] Atorvastatin [Lipitor] 20 mg PO HS 04/07/18 [History] metroNIDAZOLE 0.75% CREAM [Metrocream] 1 applic TOPICAL DAILY PRN 04/07/18 [ History] Albuterol Inhaler [Ventolin Hfa Inhaler] 2 puff INHALATION RT-Q6H PRN 07/13/18 [ History] Albuterol Nebulized [Ventolin Nebulized] 2.5 mg INHALATION RT-QID PRN 07/13/18 [ History] Beclomethasone Dipropionate [Qvar 80 mcg] 1 puff INHALATION RT-BID 07/13/18 [ History] Liraglutide [Victoza 2-Bandar] 1.2 mg SQ DAILY 07/13/18 [History] Dapagliflozin Propanediol [Farxiga] 10 mg PO DAILY 09/14/18 [History] Ferrous Sulfate [Feosol] 325 mg PO BID 09/14/18 [History] Folic Acid 0.4 mg PO DAILY 11/05/18 [History] Gabapentin [Neurontin] 300 mg PO TID 11/05/18 [History] Methotrexate Sodium [Methotrexate] 12.5 mg PO Q7D 11/05/18 [History] PARoxetine [Paxil] 20 mg PO DAILY 11/05/18 [History] Azithromycin [Zithromax Z-pack] 0 mg PO DIRECTED #6 tab 11/06/18 [Rx] guaiFENesin-DM 600/30MG [Mucinex Dm] 1 each PO Q12HR #20 tab.er.12h 11/06/18 [Rx ] Follow up Appointment(s)/Referral(s): Cuca Iqbal MD [Primary Care Provider] - 1-2 days
[2018-11-06 12:08] VITALS: BP 106/55; PULSE 93; RESP 18; TEMP 97.5
[2018-11-07] MEDS ORDERED: MORPHINE SULFATE 2 MG/ML SYRINGE IVP PRN
== END 2018-11-06 13:35 | disposition home or self-care (01) ==
LOC: EC 18:29 → 1SOBS 21:16
PROVIDERS: ADMIT Hospitalist; ATTEND Hospitalist
DX: R07.89 Other chest pain (principal); I10 Essential (primary) hypertension; E11.40 Type 2 diabetes mellitus with diabetic neuropathy, unspecified; J45.909 Unspecified asthma, uncomplicated; M79.7 Fibromyalgia; G47.30 Sleep apnea, unspecified; E78.5 Hyperlipidemia, unspecified; G89.4 Chronic pain syndrome; R05 Cough; Z79.899 Other long term (current) drug therapy; Z79.84 Long term (current) use of oral hypoglycemic drugs; Z82.49 Family history of ischemic heart disease and other diseases of the circulatory system; Z83.3 Family history of diabetes mellitus; Z87.891 Personal history of nicotine dependence; J44.9 Chronic obstructive pulmonary disease, unspecified; J32.0 Chronic maxillary sinusitis; I25.10 Atherosclerotic heart disease of native coronary artery without angina pectoris
CPT/HCPCS: 96366 ×3; 96375; 96376 ×2; 96361; 96365; 99285; 36415; 93005; 85379; 80061; 80053; 83735; 84100; 84443; 84484 ×2; 85025; 85049; 85610; 85730 ×2; 81003; 87086; 71046; G0378 ×2; J1644 ×3; J2270

== ENCOUNTER → 2018-11-16 | Outpatient (CLI) | payer OTHER ==
--- NOTE | 2018-11-16 15:03 | US ---
EXAMINATION TYPE: US kidneys/renal and bladder DATE OF EXAM: 11/16/2018 COMPARISON: CT 2018 CLINICAL HISTORY: R03.1 low blood-pressure reading. Patients states having low blood pressure EXAM MEASUREMENTS: Right Kidney: 9.6 x 5.6 x 5.8 cm Left Kidney: 11.3 x 4.5 x 4.8 cm Right Kidney: No hydronephrosis or masses seen Left Kidney: No hydronephrosis or masses seen Bladder: wnl, distended Bilateral Jets seen: yes Normal Post Void Residual: No residual volume seen. There is no evidence for hydronephrosis at this point in time. No nephrolithiasis is seen. No derik s are identified. The urinary bladder is anechoic. Bilateral ureteral jets are seen. IMPRESSION: No significant abnormality appreciated.
== END | disposition home or self-care (01) ==
LOC: RADUSWWP 14:07
PROVIDERS: ATTEND Family Medicine
DX: R03.1 Nonspecific low blood-pressure reading (principal)
CPT/HCPCS: 76770

== ENCOUNTER 2018-11-23 22:02 | Emergency (ER) | payer OTHER ==
[2018-11-23] MEDS ORDERED: MORPHINE SULFATE 4 MG/ML SYRINGE IM STA (22:24)
[2018-11-23] MEDS ORDERED: SODIUM CHLORIDE 0.9% 1,000 ML IV STA (22:34)
--- NOTE | 2018-11-23 22:48 | ED ---
General Adult HPI - General Source: patient, RN notes reviewed, old records reviewed Mode of arrival: ambulatory Limitations: no limitations <Alvaro Rocha - Last Filed: 11/24/18 00:08> <Melody Valadez - Last Filed: 11/24/18 01:46> <Campos Colungassdouglas Ramirez - Last Filed: 11/24/18 21:55> - General Chief complaint: Back Pain/Injury Stated complaint: Back pain Time Seen by Provider: 11/23/18 22:11 - History of Present Illness Initial comments: 48-year-old female patient past medical history of chronic lumbar back pain, COPD, type 2 diabetes, hypertension, neuropathy, presents to ED with left paralumbar back pain. Patient reports that she was heavily exerting herself playing Wii sports today. Patient for states that this feels similar to her chronic lumbar back pain the past. The patient reports that radiates down to her left buttock region. Patient denies any recent falls or trauma. Patient denies any loss of bowel or bladder control, saddle anesthesia, lower extremity weakness, IV drug use, fevers or chills. Patient denies other complaints. Systemic: Pt denies fatigue, myalgia, fever/chills, rash. Pt denies weakness, night sweats, weight loss. Neuro: Pt denies headache, visual disturbances, syncope or pre-syncope. HEENT: Pt denies ocular discharge or irritation, otalgia, rhinorrhea, pharyn gitis or notable lymphadenopathy. Cardiopulmonary: Pt denies chest pain, SOB, heart palpitations, dyspnea on exertion. Abdominal/GI: Pt denies abdominal pain, n/v/d. : Pt denies dysuria, burning w/ urination, frequency/urgency. Denies new onset urinary or bowel incontinence. MSK: Pt denies myalgia, loss of strength or function in extremities. Neuro: Pt denies new onset weakness, paresthesias. (Alvaro Rocha) - Related Data Home Medications Medication Instructions Recorded Confirmed Montelukast [Singulair] 10 mg PO HS 04/16/17 11/23/18 Losartan Potassium [Cozaar] 25 mg PO DAILY 06/24/17 11/23/18 Pioglitazone [Actos] 30 mg PO DAILY 09/15/17 11/23/18 metFORMIN HCL [Glucophage] 1,000 mg PO AC-SUPPER 01/05/18 11/23/18 metFORMIN HCL [Glucophage] 500 mg PO AC-BID 01/05/18 11/23/18 Atorvastatin [Lipitor] 20 mg PO HS 04/07/18 11/23/18 Albuterol Inhaler [Ventolin Hfa 2 puff INHALATION RT-Q6H PRN 07/13/18 11/23/18 Inhaler] Beclomethasone Dipropionate [Qvar 1 puff INHALATION RT-BID 07/13/18 11/23/18 80 mcg] Liraglutide [Victoza 2-Bandar] 1.2 mg SQ DAILY 07/13/18 11/23/18 Dapagliflozin Propanediol [Farxiga] 10 mg PO DAILY 09/14/18 11/23/18 Ferrous Sulfate [Feosol] 325 mg PO BID 09/14/18 11/23/18 PARoxetine [Paxil] 20 mg PO DAILY 11/05/18 11/23/18 Gabapentin 600 mg PO TID 11/23/18 11/23/18 Previous Rx's Medication Instructions Recorded Hydrocodone/Acetaminophen [Paramus 1 tab PO Q6HR PRN #12 tab 11/24/18 5-325] Allergies Allergy/AdvReac Type Severity Reaction Status Date / Time adhesive Allergy red skin Verified 11/23/18 22:52 Iodinated Contrast- Oral and Allergy Itching Verified 11/23/18 22:52 IV Dye [Iodinated Contrast Media - IV Dye] metoprolol Allergy Chest Pain Verified 11/23/18 22:52 prednisone Allergy Rapid Verified 11/23/18 22:52 Heart Rate verapamil Allergy Anaphylaxis Verified 11/23/18 22:52 celecoxib [From Celebrex] AdvReac CAUSES GI Verified 11/23/18 22:52 BLEEDING cephalexin monohydrate AdvReac Vomiting Verified 11/23/18 22:52 [From Keflex] diphenhydramine AdvReac arm burned Verified 11/23/18 22:52 [From Benadryl] when given IV Penicillins AdvReac Nausea & Verified 11/23/18 22:52 Vomiting tramadol AdvReac Nausea & Verified 11/23/18 22:52 Vomiting Review of Systems ROS Other: All systems not noted in ROS Statement are negative. <Alvaro Rocha - Last Filed: 11/24/18 00:08> ROS Other: All systems not noted in ROS Statement are negative. <Melody Valadez M - Last Filed: 11/24/18 01:46> ROS Other: All systems not noted in ROS Statement are negative. <Cara Colunga P - Last Filed: 11/24/18 21:55> ROS Statement: Those systems with pertinent positive or pertinent negative responses have been documented in the HPI. Past Medical History Past Medical History: COPD, Diabetes Mellitus, Hypertension Additional Past Medical History / Comment(s): neuoropathy History of Any Multi-Drug Resistant Organisms: None Reported Past Surgical History: Adenoidectomy, Cholecystectomy, Tonsillectomy Additional Past Surgical History / Comment(s): D&C, carpal tunnel surgery left , LT ARM SX FOR "PINCHED NERVE", LT THUMB TRIGGER FINGER, rae neuroma removed left foot, cardiac ablation, right ankle fx 01/2018 no surgery Past Anesthesia/Blood Transfusion Reactions: Previous Problems w/ Anesthesia, Motion Sickness Additional Past Anesthesia/Blood Transfusion Reaction / Comment(s): difficulty waking from anesthesia Past Psychological History: Anxiety, Depression, Panic Disorder Smoking Status: Former smoker Past Alcohol Use History: None Reported Past Drug Use History: None Reported - Past Family History Father Family Medical History: Cancer Additional Family Medical History / Comment(s): skin Mother Family Medical History: Diabetes Mellitus, Hypertension, Osteoarthritis (OA) Additional Family Medical History / Comment(s): MURMUR Sister(s) Family Medical History: Cancer Additional Family Medical History / Comment(s): ovarian <Alvaro Rocha J - Last Filed: 11/24/18 00:08> General Exam Limitations: no limitations <Alvaro Rocha - Last Filed: 11/24/18 00:08> - General Exam Comments Initial Comments: Constitutional: NAD, AOX3, Pt has pleasant affect. HEENT: NC/AT, trachea midline, neck supple, no lymphadenopathy. Posterior pharynx non erythematous, without exudates. External ears appear normal, without discharge. Mucous membranes moist. Eyes PERRLA, EOM intact. There is no scleral icterus. No pallor noted. Cardiopulmonary: RRR, no murmurs, rubs or gallops, no JVD noted. Lungs CTAB in anterior and posterior hinds. No peripheral edema. Abdominal exam: Abdomen soft and non-distended. Abdomen non-tender to palpation in all 4 quadrants. Bowel sounds active in LLQ. No hepatosplenomegaly. No ecchymosis Neuro: CN II-XII grossly intact. No nuchal rigidity. MSK: 5 out of 5 strength psoas and quadriceps. No midline cervical thoracic or lumbar back pain. Mild amount of left paralumbar back pain. Positive left straight leg raise. No posterior calf tenderness bilaterally, homans sign nega tive bilaterally. Posterior tibialis and radial pulse +2 bilaterally. Sensation intact in upper and lower extremities. Full active ROM in upper and lower extremities, 5/5 stregnth. (Alvaro Rocha) Course Vital Signs 11/23/18 11/23/18 11/24/18 22:04 23:26 00:29 Temperature 97.9 F Pulse Rate 132 H 116 H 110 H Respiratory 18 19 16 Rate Blood Pressure 154/89 135/81 O2 Sat by Pulse 95 96 Oximetry 11/24/18 01:01 Temperature 98.3 F Pulse Rate 115 H Respiratory 17 Rate Blood Pressure 124/72 O2 Sat by Pulse 96 Oximetry Medical Decision Making - Radiology Data Radiology results: report reviewed <Melody Valadez M - Last Filed: 11/24/18 01:46> <Cara Colunga - Last Filed: 11/24/18 21:55> - Medical Decision Making 48-year-old female patient presented to the emergency department today for evaluation of low back pain to the left paralumbar region radiating down to the left buttock. Patient states this started today after playing [id number]. Physical examination did reveal some tenderness to the left paraspinal region extending from T12 down to the approximately L4 to 5 region. Neurovascular status is intact. She is neurologically intact with no focal deficits. No concerning symptoms for cauda equina. X-ray was obtained and did show a T12 compression fracture that is probably chronic. Patient states last back imaging was done approximately 2 years ago and she's never been told she had a compression fracture. Patient does report some falls over the last couple of years, nothing recent. Patient be discharged home with pain medication. She'll be instructed to follow-up with Dr. Bellamy for further evaluation of this compression fracture. Also of note patient's heart rate was elevated throughout visit. It did decrease from 130 to 110-115. Did review patient previous records it seems she chronically has an elevated heart rate. It seems she was tried on verapamil and metoprolol but could not tolerate these. She denies any current chest pain, palpitations, or shortness of breath. She is instructed to follow up with her primary care physician for further evaluation of this. Return parameters were discussed in detail. She verbalizes understanding and agrees with this plan. (Melody Valadez) I was available for consultation in the emergency department. The history and p hysical exam were done by the midlevel provider. I was consulted for this patient's care. I reviewed the case with the midlevel provider and based on their presentation of the patient, I agree with the assessment, medical decision making and plan of care as documented. (Cara Colunga) - Radiology Data X-ray of the lumbosacral spine was obtained and showed evidence of a T12 compression fracture is most probably chronic. Other chronic osteoarthritic changes noted. (Melody Valadez) Disposition Is patient prescribed a controlled substance at d/c from ED?: No <Alvaro Rocha - Last Filed: 11/24/18 00:08> Is patient prescribed a controlled substance at d/c from ED?: Yes When asked, does pt state using other controlled substances?: No If prescribed controlled substance>3 days was MAPS reviewed?: Prescribed <3 Days If opioid is for acute pain is fill amount 7 days or less?: Yes If Rx opioid, was Start Talking consent form obtained?: Yes Time of Disposition: 01:27 <Melody Valadez - Last Filed: 11/24/18 01:46> <Cara Colunga - Last Filed: 11/24/18 21:55> Clinical Impression: Lumbar back pain, T12 compression fracture Disposition: HOME SELF-CARE Condition: Stable Instructions (If sedation given, give patient instructions): Vertebral Compression Fracture (ED), Acute Low Back Pain (ED), Chronic Back Pain (ED) Additional Instructions: Patient to adhere to previously discussed treatment plan and will take medication(s) as directed. Patient to follow up with PCP in 1-2 days. Patient to return to ED if symptoms do not improve. Please follow-up with primary care provider in 1-2 days. Please return to ER if condition worsens in any way. Prescriptions: Hydrocodone/Acetaminophen [Paramus 5-325] 1 tab PO Q6HR PRN #12 tab PRN Reason: Pain Referrals: Cuca Iqbal MD [Primary Care Provider] - 1-2 days Linh Bellamy DO [Doctor of Osteopathic Medicine] - 1-2 days
[2018-11-24] MEDS ORDERED: MORPHINE SULFATE 4 MG/ML SYRINGE IV STA (00:03)
[2018-11-24 01:02] VITALS: BP 124/72; PULSE 115; RESP 17; TEMP 98.3
--- NOTE | 2018-11-24 07:01 | XR ---
EXAMINATION TYPE: XR lumbar spine 2 or 3V DATE OF EXAM: 11/24/2018 CLINICAL HISTORY: pain TECHNIQUE: Three views of the lumbar spine are submitted. COMPARISON: None. FINDINGS: There are 5 lumbar type vertebral bodies identified. There is grade 1 anterolisthesis of L5 on S1 of 2 mm. Severe lower lumbar facet joint arthropathy. Mild degenerative narrowing L5-S1. Vertebral body heights are within normal limits. The overlying soft tissue appears unremarkable. IMPRESSION: Degenerative changes as noted. ICD 10 NO FRACTURE, INITIAL EVALUATION
== END 2018-11-24 01:39 | disposition home or self-care (01) ==
LOC: EC 22:02
DX: M48.54XA Collapsed vertebra, not elsewhere classified, thoracic region, initial encounter for fracture (principal); M54.5 Low back pain; J44.9 Chronic obstructive pulmonary disease, unspecified; E11.40 Type 2 diabetes mellitus with diabetic neuropathy, unspecified; I10 Essential (primary) hypertension; F32.9 Major depressive disorder, single episode, unspecified; F41.0 Panic disorder [episodic paroxysmal anxiety]; Z87.891 Personal history of nicotine dependence; Z79.84 Long term (current) use of oral hypoglycemic drugs; Z79.51 Long term (current) use of inhaled steroids; Z79.899 Other long term (current) drug therapy; Z91.041 Radiographic dye allergy status; Z91.048 Other nonmedicinal substance allergy status; Z88.0 Allergy status to penicillin; Z88.1 Allergy status to other antibiotic agents; Z88.5 Allergy status to narcotic agent; Z88.8 Allergy status to other drugs, medicaments and biological substances
CPT/HCPCS: 99284 ×2; 96374 ×2; 96372 ×2; 72100; 96361; J2270 ×2

== ENCOUNTER → 2018-12-10 | Outpatient (CLI) | payer OTHER ==
--- NOTE | 2018-12-10 17:55 | US ---
EXAMINATION TYPE: US venous doppler duplex LE RT DATE OF EXAM: 12/10/2018 5:28 PM COMPARISON: 09/03/2018 CLINICAL HISTORY: I82.409. broke right ankle twice in a year, swelling in right since driving home fr [facility] this past Thursday SIDE PERFORMED: Right TECHNIQUE: The lower extremity deep venous system is examined utilizing real time linear array sonog dain with graded compression, doppler sonography and color-flow sonography. VESSELS IMAGED: External Iliac Vein (EIV) Common Femoral Vein Deep Femoral Vein Greater Saphenous Vein * Femoral Vein Popliteal Vein Small Saphenous Vein * Proximal Calf Veins (* superficial vessels) FINDINGS: Grayscale, color doppler, spectral doppler imaging performed of the deep veins of the lowe r extremities. There is normal flow, compressibility, vascular waveforms. IMPRESSION: NEGATIVE FOR DVT, RIGHT LOWER EXTREMITY.
== END | disposition home or self-care (01) ==
LOC: RADUSMAIN 17:02
PROVIDERS: ATTEND Podiatrist Foot & Ankle Surgery
DX: I82.409 Acute embolism and thrombosis of unspecified deep veins of unspecified lower extremity (principal)

== ENCOUNTER → 2018-12-10 | Outpatient (CLI) | payer OTHER | LOC: PROCWHC3 11:01 | PROVIDERS: ATTEND Nurse Practitioner Family | DX: J34.89 Other specified disorders of nose and nasal sinuses (principal); Z20.828 Contact with and (suspected) exposure to other viral communicable diseases | CPT/HCPCS: 87502 ==

== ENCOUNTER 2018-12-27 16:08 | Observation (INO) | payer OTHER ==
[2018-12-27] MEDS ORDERED: SODIUM CHLORIDE 0.9% 1,000 ML IV STA (17:54)
[2018-12-27 18:25] LABS: Anisocytosis Slight; Basophils % (A) 0 %; Eosinophils # (A) 0.2 k/uL (0-0.7); Eosinophils % (A) 2 %; HCT 39.1 % (34.0-46.0); HGB 12.4 gm/dL (11.4-16.0); Hypochromasia Slight; Lymphocytes # (A) 1.3 k/uL (1.0-4.8); Lymphocytes % (A) 17 %; MCH 27.4 pg (25.0-35.0); MCHC 31.8 g/dL (31.0-37.0); MCV 86.3 fL (80.0-100.0); Mean Platelet Volume 7.2; Monocytes # (A) 0.3 k/uL (0-1.0); Monocytes % (A) 4 %; Neutrophils # (A) 6.1 k/uL (1.3-7.7); Neutrophils % (A) 75 %; Platelet Count 219 k/uL (150-450); RBC 4.53 m/uL (3.80-5.40); WBC 8.1 k/uL (3.8-10.6)
[2018-12-27 18:35] LABS: ALT 29 U/L (9-52); AST 23 U/L (14-36); Albumin 4.1 g/dL (3.5-5.0); Alkaline Phosphatase 77 U/L (38-126); Anion Gap 8 mmol/L; Blood Urea Nitrogen 22 mg/dL (7-17); Carbon Dioxide 25 mmol/L (22-30); Chloride 106 mmol/L (98-107); Glucose 127 mg/dL (74-99); Magnesium 1.6 mg/dL (1.6-2.3); Potassium 4.4 mmol/L (3.5-5.1); Sodium 139 mmol/L (137-145); Total Bilirubin 0.6 mg/dL (0.2-1.3); Total Protein 6.9 g/dL (6.3-8.2)
[2018-12-27] MEDS ORDERED: ASPIRIN 81 MG PO STA (18:35)
[2018-12-27] MEDS ORDERED: MORPHINE SULFATE 4 MG/ML SYRINGE IVP STA (18:35)
--- NOTE | 2018-12-27 18:36 | ED ---
Chest Pain HPI - General Chief Complaint: Chest Pain Stated Complaint: Pain from lung area and up Time Seen by Provider: 12/27/18 17:53 Source: patient, RN notes reviewed, old records reviewed Mode of arrival: ambulatory Limitations: no limitations - History of Present Illness Initial Comments: [id number] female presents emergency room today with complaints of chest pain for the past 3 days. She reports that sharp shooting pains from the chest towards her neck and jaw. Patient states she's been having these pains intermittently. She thought it was related to muscle spasms. She complains of some associated shortness of breath. She denies any known heart history. - Related Data Home Medications Medication Instructions Recorded Confirmed Montelukast [Singulair] 10 mg PO HS 04/16/17 12/27/18 Losartan Potassium [Cozaar] 25 mg PO DAILY 06/24/17 12/27/18 Pioglitazone [Actos] 30 mg PO DAILY 09/15/17 12/27/18 metFORMIN HCL [Glucophage] 1,000 mg PO AC-SUPPER 01/05/18 12/27/18 metFORMIN HCL [Glucophage] 500 mg PO AC-BID 01/05/18 12/27/18 Atorvastatin [Lipitor] 20 mg PO HS 04/07/18 12/27/18 Albuterol Inhaler [Ventolin Hfa 2 puff INHALATION RT-Q6H PRN 07/13/18 12/27/18 Inhaler] Beclomethasone Dipropionate [Qvar 1 puff INHALATION RT-BID 07/13/18 12/27/18 80 mcg] Dapagliflozin Propanediol [Farxiga] 10 mg PO DAILY 09/14/18 12/27/18 Ferrous Sulfate [Feosol] 325 mg PO BID 09/14/18 12/27/18 Folic Acid 1 mg PO SUMOTUWETHSA 12/27/18 12/27/18 Gabapentin [Neurontin] 300 mg PO TID 12/27/18 12/27/18 Liraglutide [Victoza 3-Bandar] 1.2 mg SQ DAILY 12/27/18 12/27/18 Methotrexate Sodium [Methotrexate] 12.5 mg PO FR 12/27/18 12/27/18 Omeprazole 20 mg PO DAILY 12/27/18 12/27/18 PARoxetine HCL [Paxil] 40 mg PO DAILY 12/27/18 12/27/18 Allergies Allergy/AdvReac Type Severity Reaction Status Date / Time adhesive Allergy red skin Verified 12/27/18 18:33 Iodinated Contrast- Oral and Allergy Itching Verified 12/27/18 18:33 IV Dye [Iodinated Contrast Media - IV Dye] metoprolol Allergy Chest Pain Verified 12/27/18 18:33 prednisone Allergy Rapid Verified 12/27/18 18:33 Heart Rate verapamil Allergy Anaphylaxis Verified 12/27/18 18:33 celecoxib [From Celebrex] AdvReac CAUSES GI Verified 12/27/18 18:33 BLEEDING cephalexin monohydrate AdvReac Vomiting Verified 12/27/18 18:33 [From Keflex] diphenhydramine AdvReac arm burned Verified 12/27/18 18:33 [From Benadryl] when given IV Penicillins AdvReac Nausea & Verified 12/27/18 18:33 Vomiting tramadol AdvReac Nausea & Verified 12/27/18 18:33 Vomiting Review of Systems ROS Statement: Those systems with pertinent positive or pertinent negative responses have been documented in the HPI. ROS Other: All systems not noted in ROS Statement are negative. EKG Findings - EKG Comments: EKG Findings:: EKG shows sinus rhythm with normal EKG noted. Ventricular rate of 89 bpm. [place] interval is 144 ms. QRS duration is 80 ms. QT QTc is 348/423 ms. Past Medical History Past Medical History: COPD, Diabetes Mellitus, Hypertension Additional Past Medical History / Comment(s): neuoropathy History of Any Multi-Drug Resistant Organisms: None Reported Past Surgical History: Adenoidectomy, Cholecystectomy, Tonsillectomy Additional Past Surgical History / Comment(s): D&C, carpal tunnel surgery left , LT ARM SX FOR "PINCHED NERVE", LT THUMB TRIGGER FINGER, rae neuroma removed left foot, cardiac ablation, right ankle fx 01/2018 no surgery Past Anesthesia/Blood Transfusion Reactions: Previous Problems w/ Anesthesia, Motion Sickness Additional Past Anesthesia/Blood Transfusion Reaction / Comment(s): difficulty waking from anesthesia Past Psychological History: Anxiety, Depression, Panic Disorder Smoking Status: Former smoker Past Alcohol Use History: None Reported Past Drug Use History: None Reported - Past Family History Father Family Medical History: Cancer Additional Family Medical History / Comment(s): skin Mother Family Medical History: Diabetes Mellitus, Hypertension, Osteoarthritis (OA) Additional Family Medical History / Comment(s): MURMUR Sister(s) Family Medical History: Cancer Additional Family Medical History / Comment(s): ovarian General Exam - General Exam Comments Initial Comments: 48-year-old female. Alert and oriented 3. Limitations: no limitations General appearance: alert Head exam: Present: atraumatic, normocephalic, normal inspection Eye exam: Present: normal appearance, PERRL, EOMI. Absent: scleral icterus, conjunctival injection, periorbital swelling ENT exam: Present: normal exam, mucous membranes moist Neck exam: Present: normal inspection. Absent: tenderness, meningismus, lymphadenopathy Respiratory exam: Present: normal lung sounds bilaterally. Absent: respiratory distress, wheezes, rales, rhonchi, stridor Cardiovascular Exam: Present: regular rate, normal rhythm, normal heart sounds. Absent: systolic murmur, diastolic murmur, rubs, gallop, clicks GI/Abdominal exam: Present: soft, normal bowel sounds. Absent: distended, tenderness, guarding, rebound, rigid Extremities exam: Present: normal inspection, full ROM, normal capillary refill. Absent: tenderness, pedal edema, joint swelling, calf tenderness Back exam: Present: normal inspection Neurological exam: Present: alert, oriented X3, CN II-XII intact Psychiatric exam: Present: normal affect, normal mood Skin exam: Present: warm, dry, intact, normal color. Absent: rash Course Vital Signs 12/27/18 12/27/18 17:02 19:00 Temperature 98.2 F Pulse Rate 91 87 Respiratory 18 19 Rate Blood Pressure 119/82 114/81 O2 Sat by Pulse 97 100 Oximetry Chest Pain MDM - MDM 48-year-old obese female presents emergency room today complaining of int ermittent chest pain for the past 3 days. Today she arrives stating pain is worse a complains of some shortness of breath. At this time patient's vital signs are stable. EKG shows no changes. Patient's d-dimer is negative. Troponin is negative and the respiratory lab work is unremarkable. Chest x-ray shows no acute change. At this time I discussed case with Dr. Smith. Would like to the Patient for chest pain rule out. Disposition Clinical Impression: Dyspnea, Chest pain Disposition: ADMITTED IP TO THIS HOSP Condition: Stable Is patient prescribed a controlled substance at d/c from ED?: No Referrals: Cuca Iqbal MD [Primary Care Provider] - 1-2 days Time of Disposition: 20:06
[2018-12-27 18:45] LABS: D-Dimer 0.21 mg/L FEU (<0.60); INR 0.9 (<1.2); Partial Thromboplastin Time 23.1 sec (22.0-30.0); Prothrombin Time 10.2 sec (9.0-12.0)
--- NOTE | 2018-12-27 19:01 | XR ---
EXAMINATION TYPE: XR chest 2V DATE OF EXAM: 12/27/2018 COMPARISON: 11/05/2018 HISTORY: Chest pain TECHNIQUE: Frontal and lateral views of the chest are obtained. FINDINGS: There is no heart failure nor confluent pneumonic infiltrate. Costophrenic angles are sanchez r. There are chest leads. IMPRESSION: No active cardiopulmonary disease. Normal heart. No change.
[2018-12-27] MEDS ORDERED: NITROGLYCERIN SL TABS 0.4 MG TAB SUBLINGUAL PRN (20:08)
[2018-12-27] MEDS ORDERED: MORPHINE SULFATE 4 MG/ML SYRINGE IV PRN (20:08)
[2018-12-28 00:03] VITALS: BMI 43.2
[2018-12-28 02:13] LABS: Cholesterol 165 mg/dL (<200); HDL Cholesterol 35 mg/dL (40-60); LDL Cholesterol,Calculated 94 mg/dL (0-99); Triglycerides 181 mg/dL (<150)
[2018-12-28] MEDS ORDERED: INFLUENZA VACCINE (6 MOS+) 60 MCG/0.5 ML SYRINGE IM ONE (05:03)
[2018-12-28 07:31] LABS: Glucose,Whole Blood 118 mg/dL (75-99)
[2018-12-28 07:43] VITALS: RESP 18
[2018-12-28] MEDS ORDERED: ASPIRIN 325 MG TAB PO SCH (09:00)
--- NOTE | 2018-12-28 10:05 | P.CRDCN ---
History of Present Illness History of present illness: This is a pleasant 48-year-old female past medical history significant for diabetes mellitus, hypertension, COPD and former nicotine dependence. We have been asked to see her in consultation for symptoms of chest discomfort. She complains of a sharp pain in the midsternal region with radiation to the right shoulder that has been constant and ongoing since yesterday with no spe cific aggravating or alleviating factors. She denies associated shortness of breath, dizziness, nausea, cough, vomiting or diaphoresis. She is seen and examined resting comfortably laying flat in bed in no acute distress. She does state she is having ongoing chest discomfort at this time. In April 2018 she underwent a dobutamine stress echocardiogram was normal with no evidence of stress-induced ischemia as well as an echocardiogram that revealed preserved left ventricular systolic function. In 2014 she underwent a cardiac catheterization revealing normal coronary arteries with no obstructive disease. EKG reveals sinus mechanism with no acute ST or T wave abnormalities noted. Chest x-ray is negative for an acute cardiopulmonary process. Laboratory data reviewed, WBC 8.1, hemoglobin 12.4, platelets 219, d-dimer 0.21, sodium 139, potassium 4.4, creatinine 0.77, magnesium 1.6, cardiac enzymes negative 3, LDL 94. Current cardiac medications include atorvastatin 20 mg daily, losartan 25 mg daily. At the time of my exam: CONSTITUTIONAL: Denies fever. Denies chills. EYES: Denies blurred vision. Denies vision changes. Denies eye pain. EARS, NOSE, MOUTH & THROAT: Denies headache. Denies sore throat. Denies ear pain. CARDIOVASCULAR: Denies chest pain. Denies shortness of breath. Denies orthopnea. Denies PND. Denies palpitations. RESPIRATORY: Denies cough. GASTROINTESTINAL: Denies abdominal pain. Denies diarrhea. Denies constipation. Denies nausea. Denies vomiting. MUSCULOSKELETAL: Denies myalgias. INTEGUMENTARY: Denies pruitis. Denies rash. NEUROLOGIC: Denies numbness. Denies tingling. Denies weakness. PSYCHIATRIC: Denies anxiety. Denies depression. ENDOCRINE: Denies fatigue. Denies weight change. Denies polydipsia. Denies polyurina. GENITOURINARY: Denies burning, hematuria or urgency with micturation. HEMATOLOGIC: Denies history of anemia. Denies bleeding. Blood pressure 113/74 heart rate 88 afebrile oxygen saturation 91% on room air GENERAL: This is a 48-year-old female in no apparent distress at the time of my examination. Obese. HEENT: Head is atraumatic, normocephalic. Pupils are equal, round. Sclerae anicteric. Conjunctivae are clear. Mucous membranes of the mouth are moist. Neck is supple. There is no jugular venous distention. No carotid bruit is heard. LUNGS: Clear to auscultation no wheezes, rales or rhonchi. No chest wall tenderness is noted on palpation or with deep breathing. Diminished bilaterally. HEART: Regular rate and rhythm without murmurs, rubs or gallops. S1 and S2 heard. ABDOMEN: Soft, nontender. Bowel sounds are heard. No organomegaly noted. EXTREMITIES: No evidence of peripheral edema and no calf tenderness noted. VASCULAR: Radial and dorsalis pedis pulses palpated, no evidence of clubbing. NEUROLOGIC: Patient is awake, alert and oriented x3. ASSESSMENT Chest pain atypical for angina. An acute coronary event has been ruled out. Hypertension Diabetes mellitus Dyslipidemia Morbid obesity, BMI 43.3 PLAN An acute coronary event has been ruled out. Recent stress test is normal with no evidence of stress induced ischemia. Symptoms are not suggestive of angina and most likely related to a muscular strain. Overall stable from a cardiac perspective. Continue losartan and atorvastatin as previously ordered. Follow up with Dr. Chang upon discharge. Nurse Practitioner note has been reviewed, I agree with a documented findings and plan of care. Patient was seen and examined. Past Medical History Past Medical History: Asthma, COPD, Diabetes Mellitus, Hypertension Additional Past Medical History / Comment(s): neuoropathy History of Any Multi-Drug Resistant Organisms: None Reported Past Surgical History: Adenoidectomy, Cholecystectomy, Tonsillectomy Additional Past Surgical History / Comment(s): D&C, carpal tunnel surgery left , LT ARM SX FOR "PINCHED NERVE", LT THUMB TRIGGER FINGER, rae neuroma removed left foot, heart cath 2015 , right ankle fx 01/2018 no surgery Past Anesthesia/Blood Transfusion Reactions: Previous Problems w/ Anesthesia, Motion Sickness Additional Past Anesthesia/Blood Transfusion Reaction / Comment(s): difficulty waking from anesthesia Past Psychological History: Anxiety, Depression, Panic Disorder Additional Psychological History / Comment(s): niece is her medicare coordinator. Smoking Status: Former smoker Past Alcohol Use History: None Reported Additional Past Alcohol Use History / Comment(s): Patient started smoking at age 13 one half pack per day and quit around 1991 Past Drug Use History: Marijuana Additional Drug Use History / Comment(s): . - Past Family History Father Family Medical History: Cancer Additional Family Medical History / Comment(s): skin Mother Family Medical History: Diabetes Mellitus, Hypertension, Osteoarthritis (OA) Additional Family Medical History / Comment(s): MURMUR Sister(s) Family Medical History: Cancer Additional Family Medical History / Comment(s): ovarian Medications and Allergies Home Medications Medication Instructions Recorded Confirmed Type Montelukast [Singulair] 10 mg PO HS 04/16/17 12/27/18 History Losartan Potassium [Cozaar] 25 mg PO DAILY 06/24/17 12/27/18 History Pioglitazone [Actos] 30 mg PO DAILY 09/15/17 12/27/18 History metFORMIN HCL [Glucophage] 1,000 mg PO AC-SUPPER 01/05/18 12/27/18 History metFORMIN HCL [Glucophage] 500 mg PO AC-BID 01/05/18 12/27/18 History Atorvastatin [Lipitor] 20 mg PO HS 04/07/18 12/27/18 History Albuterol Inhaler [Ventolin Hfa 2 puff INHALATION RT-Q6H PRN 07/13/18 12/27/18 History Inhaler] Beclomethasone Dipropionate [Qvar 1 puff INHALATION RT-BID 07/13/18 12/27/18 History 80 mcg] Dapagliflozin Propanediol [Farxiga] 10 mg PO DAILY 09/14/18 12/27/18 History Ferrous Sulfate [Feosol] 325 mg PO BID 09/14/18 12/27/18 History Folic Acid 1 mg PO SUMOTUWETHSA 12/27/18 12/27/18 History Gabapentin [Neurontin] 300 mg PO TID 12/27/18 12/27/18 History Liraglutide [Victoza 3-Bandar] 1.2 mg SQ DAILY 12/27/18 12/27/18 History Methotrexate Sodium [Methotrexate] 12.5 mg PO FR 12/27/18 12/27/18 History Omeprazole 20 mg PO DAILY 12/27/18 12/27/18 History PARoxetine HCL [Paxil] 40 mg PO DAILY 12/27/18 12/27/18 History Allergies Allergy/AdvReac Type Severity Reaction Status Date / Time adhesive Allergy red skin Verified 12/27/18 18:33 Iodinated Contrast- Oral and Allergy Itching Verified 12/27/18 18:33 IV Dye [Iodinated Contrast Media - IV Dye] metoprolol Allergy Chest Pain Verified 12/27/18 18:33 prednisone Allergy Rapid Verified 12/27/18 18:33 Heart Rate verapamil Allergy Anaphylaxis Verified 12/27/18 18:33 celecoxib [From Celebrex] AdvReac CAUSES GI Verified 12/27/18 18:33 BLEEDING cephalexin monohydrate AdvReac Vomiting Verified 12/27/18 18:33 [From Keflex] diphenhydramine AdvReac arm burned Verified 12/27/18 18:33 [From Benadryl] when given IV Penicillins AdvReac Nausea & Verified 12/27/18 18:33 Vomiting tramadol AdvReac Nausea & Verified 12/27/18 18:33 Vomiting Physical Exam Vitals: Vital Signs Temp Pulse Pulse Resp BP BP Pulse Ox 12/28/18 07:10 97.5 F L 88 18 113/74 91 L 12/28/18 03:54 97.5 F L 86 16 90/59 93 L 12/28/18 00:00 16 12/27/18 23:30 98.3 F 95 16 122/85 98 12/27/18 23:06 98.6 F 12/27/18 23:00 102 H 18 113/69 98 12/27/18 22:30 101 H 18 113/69 95 12/27/18 22:00 97 16 128/70 96 12/27/18 21:30 102 H 16 128/75 99 12/27/18 21:00 104 H 18 139/84 96 12/27/18 20:30 93 18 124/84 97 12/27/18 20:00 92 18 124/83 97 12/27/18 19:30 86 18 131/87 96 12/27/18 19:00 87 19 114/81 100 12/27/18 17:02 98.2 F 91 18 119/82 97 Intake and Output 12/27/18 12/28/18 12/28/18 22:59 06:59 14:59 Other: Voiding Method Toilet # Voids 1 Weight 114.305 kg Results 12/27/18 18:07 12/27/18 18:07 Cardiac Enzymes 12/27/18 12/27/18 12/28/18 Range/Units 18:07 18:07 00:19 AST 23 (14-36) U/L Troponin I <0.012 <0.012 (0.000-0.034) ng/mL 12/28/18 Range/Units 05:52 AST (14-36) U/L Troponin I <0.012 (0.000-0.034) ng/mL Coagulation 12/27/18 Range/Units 18:07 PT 10.2 (9.0-12.0) sec APTT 23.1 (22.0-30.0) sec Lipids 12/27/18 Range/Units 18:07 Triglycerides 181 H (<150) mg/dL Cholesterol 165 (<200) mg/dL HDL Cholesterol 35 L (40-60) mg/dL CBC 12/27/18 Range/Units 18:07 WBC 8.1 (3.8-10.6) k/uL RBC 4.53 (3.80-5.40) m/uL Hgb 12.4 (11.4-16.0) gm/dL Hct 39.1 (34.0-46.0) % Plt Count 219 (150-450) k/uL Comprehensive Metabolic Panel 12/27/18 Range/Units 18:07 Sodium 139 (137-145) mmol/L Potassium 4.4 (3.5-5.1) mmol/L Chloride 106 (98-107) mmol/L Carbon Dioxide 25 (22-30) mmol/L BUN 22 H (7-17) mg/dL Creatinine 0.77 (0.52-1.04) mg/dL Glucose 127 H (74-99) mg/dL Calcium 9.0 (8.4-10.2) mg/dL AST 23 (14-36) U/L ALT 29 (9-52) U/L Alkaline Phosphatase 77 (38-126) U/L Total Protein 6.9 (6.3-8.2) g/dL Albumin 4.1 (3.5-5.0) g/dL Current Medications Generic Name Dose Route Start Last Admin Trade Name Freq PRN Reason Stop Dose Admin Aspirin 325 mg 12/28/18 09:00 Aspirin PO DAILY MICHAEL Morphine Sulfate 4 mg 12/27/18 20:08 12/27/18 20:56 Morphine Sulfate (Inj) IV 4 mg Q5M PRN Administration Chest Pain Nitroglycerin 0.4 mg 12/27/18 20:08 Nitrostat SUBLINGUAL Q5M PRN Chest Pain Intake and Output 12/27/18 12/28/18 12/28/18 22:59 06:59 14:59 Other: Voiding Method Toilet # Voids 1 Weight 114.305 kg 12/27/18 18:07 12/27/18 18:07
[2018-12-28] MEDS ORDERED: LOSARTAN 25 MG TAB PO SCH (10:15)
[2018-12-28 11:33] VITALS: BP 129/84; PULSE 80; TEMP 98.2
[2018-12-28 11:48] LABS: Glucose,Whole Blood 150 mg/dL (75-99)
[2018-12-28] MEDS ORDERED: ALBUTEROL NEBULIZED 2.5 MG/3 ML INHALATION PRN (13:12)
[2018-12-28] MEDS ORDERED: NON-FORMULARY DRUG (Liraglutide [Victoza 3-Pak] 1.2 MG) SQ SCH (13:15)
[2018-12-28] MEDS ORDERED: Dapagliflozin Propanediol [Farxiga] 10 MG PO SCH (14:00)
--- NOTE | 2018-12-28 14:31 | P.HPIM ---
History of Present Illness Patient is a pleasant 48-year-old female came in with compensative chest pain radiating to the neck region pressure-like sensation and sharp pain patient does have neck issues. Denied any diaphoresis or shortness of breath associated with that patient had severe pain yesterday which is presently mild pain. Patient denied any associated shortness of breath dizziness or diaphoresis patient chest pain is nonpleuritic not associated with food patient does have history of gastroesophageal reflux disease and this does not appear to be gastroesophageal reflux disease. Patient's troponins are negative EKG did not show any acute ST- T wave changes patient was ruled out acute coronary syndromes. Patient had a dobutamine stress echocardiogram in April 2018 which did not show any inducible ischemia and a cardiac catheterization in 2014 which did not show any significant atherosclerotic vascular occlusion that needs stent placement. Patient was evaluated cardiology cleared for discharge. Chest x-ray did not show any pneumonic process patient appears to have Casmalia's critical pain advised her to take extra strength Tylenol follow-up with the primary care physician and her size painter as an outpatient. Counseling regarding her obesity and weight loss was provided. Review of Systems REVIEW OF SYSTEMS: CONSTITUTIONAL: No fever, no malaise, no fatigue. HEENT: No recent visual problems or hearing problems. Denied any sore throat. CARDIOVASCULAR: No orthopnea, PND, no palpitations, no syncope. PULMONARY: No shortness of breath, no cough, no hemoptysis. GASTROINTESTINAL: No diarrhea, no nausea, no vomiting, no abdominal pain. NEUROLOGICAL: No headaches, no weakness, no numbness. HEMATOLOGICAL: Denies any bleeding or petechiae. GENITOURINARY: Denies any burning micturition, frequency, or urgency. MUSCULOSKELETAL/RHEUMATOLOGICAL: Denies any joint pain, swelling, or any muscle pain. ENDOCRINE: Denies any polyuria or polydipsia. The rest of the 14-point review of systems is negative. Past Medical History Past Medical History: Asthma, COPD, Diabetes Mellitus, Hypertension Additional Past Medical History / Comment(s): neuoropathy History of Any Multi-Drug Resistant Organisms: None Reported Past Surgical History: Adenoidectomy, Cholecystectomy, Tonsillectomy Additional Past Surgical History / Comment(s): D&C, carpal tunnel surgery left , LT ARM SX FOR "PINCHED NERVE", LT THUMB TRIGGER FINGER, rae neuroma removed left foot, heart cath 2016 , right ankle fx 01/2018 no surgery Past Anesthesia/Blood Transfusion Reactions: Previous Problems w/ Anesthesia, Motion Sickness Additional Past Anesthesia/Blood Transfusion Reaction / Comment(s): difficulty waking from anesthesia Past Psychological History: Anxiety, Depression, Panic Disorder Additional Psychological History / Comment(s): niece is her care mgr. Smoking Status: Former smoker Past Alcohol Use History: None Reported Additional Past Alcohol Use History / Comment(s): Patient started smoking at age 13 one half pack per day and quit around 1991 Past Drug Use History: Marijuana Additional Drug Use History / Comment(s): . - Past Family History Father Family Medical History: Cancer Additional Family Medical History / Comment(s): skin Mother Family Medical History: Diabetes Mellitus, Hypertension, Osteoarthritis (OA) Additional Family Medical History / Comment(s): MURMUR Sister(s) Family Medical History: Cancer Additional Family Medical History / Comment(s): ovarian Medications and Allergies Home Medications Medication Instructions Recorded Confirmed Type Montelukast [Singulair] 10 mg PO HS 04/16/17 12/27/18 History Losartan Potassium [Cozaar] 25 mg PO DAILY 06/24/17 12/27/18 History Pioglitazone [Actos] 30 mg PO DAILY 09/15/17 12/27/18 History metFORMIN HCL [Glucophage] 1,000 mg PO AC-SUPPER 01/05/18 12/27/18 History metFORMIN HCL [Glucophage] 500 mg PO AC-BID 01/05/18 12/27/18 History Atorvastatin [Lipitor] 20 mg PO HS 04/07/18 12/27/18 History Albuterol Inhaler [Ventolin Hfa 2 puff INHALATION RT-Q6H PRN 07/13/18 12/27/18 History Inhaler] Beclomethasone Dipropionate [Qvar 1 puff INHALATION RT-BID 07/13/18 12/27/18 History 80 mcg] Dapagliflozin Propanediol [Farxiga] 10 mg PO DAILY 09/14/18 12/27/18 History Ferrous Sulfate [Feosol] 325 mg PO BID 09/14/18 12/27/18 History Folic Acid 1 mg PO SUMOTUWETHSA 12/27/18 12/27/18 History Gabapentin [Neurontin] 300 mg PO TID 12/27/18 12/27/18 History Liraglutide [Victoza 3-Bandar] 1.2 mg SQ DAILY 12/27/18 12/27/18 History Methotrexate Sodium [Methotrexate] 12.5 mg PO FR 12/27/18 12/27/18 History Omeprazole 20 mg PO DAILY 12/27/18 12/27/18 History PARoxetine HCL [Paxil] 40 mg PO DAILY 12/27/18 12/27/18 History Allergies Allergy/AdvReac Type Severity Reaction Status Date / Time adhesive Allergy red skin Verified 12/27/18 18:33 Iodinated Contrast- Oral and Allergy Itching Verified 12/27/18 18:33 IV Dye [Iodinated Contrast Media - IV Dye] metoprolol Allergy Chest Pain Verified 12/27/18 18:33 prednisone Allergy Rapid Verified 12/27/18 18:33 Heart Rate verapamil Allergy Anaphylaxis Verified 12/27/18 18:33 celecoxib [From Celebrex] AdvReac CAUSES GI Verified 12/27/18 18:33 BLEEDING cephalexin monohydrate AdvReac Vomiting Verified 12/27/18 18:33 [From Keflex] diphenhydramine AdvReac arm burned Verified 12/27/18 18:33 [From Benadryl] when given IV Penicillins AdvReac Nausea & Verified 12/27/18 18:33 Vomiting tramadol AdvReac Nausea & Verified 12/27/18 18:33 Vomiting Physical Exam Vitals: Vital Signs Temp Pulse Pulse Resp BP BP Pulse Ox 12/28/18 11:32 98.2 F 80 18 129/84 99 12/28/18 07:10 97.5 F L 88 18 113/74 91 L 12/28/18 03:54 97.5 F L 86 16 90/59 93 L 12/28/18 00:00 16 12/27/18 23:30 98.3 F 95 16 122/85 98 12/27/18 23:06 98.6 F 12/27/18 23:00 102 H 18 113/69 98 12/27/18 22:30 101 H 18 113/69 95 12/27/18 22:00 97 16 128/70 96 12/27/18 21:30 102 H 16 128/75 99 12/27/18 21:00 104 H 18 139/84 96 12/27/18 20:30 93 18 124/84 97 12/27/18 20:00 92 18 124/83 97 12/27/18 19:30 86 18 131/87 96 12/27/18 19:00 87 19 114/81 100 12/27/18 17:02 98.2 F 91 18 119/82 97 Intake and Output 12/27/18 12/28/18 12/28/18 22:59 06:59 14:59 Intake Total 222 Balance 222 Intake: Oral 222 Other: Voiding Method Toilet Toilet # Voids 1 Weight 114.305 kg PHYSICAL EXAMINATION: GENERAL: The patient is alert and oriented x3, not in any acute distress. Well developed, well nourished. Obese HEENT: Pupils are round and equally reacting to light. EOMI. No scleral icterus. No conjunctival pallor. Normocephalic, atraumatic. No pharyngeal erythema. No thyromegaly. CARDIOVASCULAR: S1 and S2 present. No murmurs, rubs, or gallops. PULMONARY: Chest is clear to auscultation, no wheezing or crackles. ABDOMEN: Soft, nontender, nondistended, normoactive bowel sounds. No palpable organomegaly. MUSCULOSKELETAL: No joint swelling or deformity. EXTREMITIES: No cyanosis, clubbing, or pedal edema. NEUROLOGICAL: Gross neurological examination did not reveal any focal deficits. SKIN: No rashes. Results CBC & Chem 7: 12/27/18 18:07 12/27/18 18:07 Labs: Abnormal Lab Results - Last 24 Hours (Table) 12/27/18 12/27/18 12/27/18 Range/Units 18:07 18:07 18:07 RDW 19.0 H (11.5-15.5) % BUN 22 H (7-17) mg/dL Glucose 127 H (74-99) mg/dL POC Glucose (mg/dL) (75-99) mg/dL Triglycerides 181 H (<150) mg/dL HDL Cholesterol 35 L (40-60) mg/dL 12/28/18 12/28/18 Range/Units 07:29 11:46 RDW (11.5-15.5) % BUN (7-17) mg/dL Glucose (74-99) mg/dL POC Glucose (mg/dL) 118 H 150 H (75-99) mg/dL Triglycerides (<150) mg/dL HDL Cholesterol (40-60) mg/dL Thrombosis Risk Factor Assmnt - Choose All That Apply Any of the Below Risk Factors Present?: Yes Each Factor Represents 1 point: Age 41-60 years, Obesity (BMI >25) Thrombosis Risk Factor Assessment Total Risk Factor Score: 2 Thrombosis Risk Factor Assessment Level: Low Risk Assessment and Plan Plan: -Chest pain rule out acute coronary syndromes and unstable angina. Further management as discussed above. Patient's pain appears to be musculoskeletal -Hypertension -Type 2 diabetes mellitus -Hyperlipidemia -Obesity -Degenerative cervical spine disease -COPD without any acute exacerbation -Depression Patient is clinically doing well is being discharged her home medications were resumed and no changes in medications are being made at this time.
--- NOTE | 2018-12-28 14:33 | P.DS ---
Providers Date of admission: 12/27/18 19:42 Attending physician: Ciro Flores Consults: 12/27/18 20:08 Consult Physician Urgent Consulting Provider: Eduardo Olivarez Consult Reason/Comments: chest pain Do you want consulting provider notified?: Yes Primary care physician: [facility] Course: Please refer to my HPI for further details Patient Condition at Discharge: Stable Plan - Discharge Summary Discharge Rx Participant: No New Discharge Prescriptions: Continue Montelukast [Singulair] 10 mg PO HS Losartan Potassium [Cozaar] 25 mg PO DAILY Pioglitazone [Actos] 30 mg PO DAILY metFORMIN HCL [Glucophage] 500 mg PO AC-BID metFORMIN HCL [Glucophage] 1,000 mg PO AC-SUPPER Atorvastatin [Lipitor] 20 mg PO HS Beclomethasone Dipropionate [Qvar 80 mcg] 1 puff INHALATION RT-BID Albuterol Inhaler [Ventolin Hfa Inhaler] 2 puff INHALATION RT-Q6H PRN PRN Reason: Shortness Of Breath Ferrous Sulfate [Feosol] 325 mg PO BID Dapagliflozin Propanediol [Farxiga] 10 mg PO DAILY Methotrexate Sodium [Methotrexate] 12.5 mg PO FR Liraglutide [Victoza 3-Bandar] 1.2 mg SQ DAILY Gabapentin [Neurontin] 300 mg PO TID Folic Acid 1 mg PO SUMOTUWETHSA PARoxetine HCL [Paxil] 40 mg PO DAILY Omeprazole 20 mg PO DAILY Discharge Medication List Montelukast [Singulair] 10 mg PO HS 04/16/17 [History] Losartan Potassium [Cozaar] 25 mg PO DAILY 06/24/17 [History] Pioglitazone [Actos] 30 mg PO DAILY 09/15/17 [History] metFORMIN HCL [Glucophage] 1,000 mg PO AC-SUPPER 01/05/18 [History] metFORMIN HCL [Glucophage] 500 mg PO AC-BID 01/05/18 [History] Atorvastatin [Lipitor] 20 mg PO HS 04/07/18 [History] Albuterol Inhaler [Ventolin Hfa Inhaler] 2 puff INHALATION RT-Q6H PRN 07/13/18 [History] Beclomethasone Dipropionate [Qvar 80 mcg] 1 puff INHALATION RT-BID 07/13/18 [History] Dapagliflozin Propanediol [Farxiga] 10 mg PO DAILY 09/14/18 [History] Ferrous Sulfate [Feosol] 325 mg PO BID 09/14/18 [History] Folic Acid 1 mg PO SUMOTUWETHSA 12/27/18 [History] Gabapentin [Neurontin] 300 mg PO TID 12/27/18 [History] Liraglutide [Victoza 3-Bandar] 1.2 mg SQ DAILY 12/27/18 [History] Methotrexate Sodium [Methotrexate] 12.5 mg PO FR 12/27/18 [History] Omeprazole 20 mg PO DAILY 12/27/18 [History] PARoxetine HCL [Paxil] 40 mg PO DAILY 12/27/18 [History] Follow up Appointment(s)/Referral(s): Allan Chang MD [STAFF PHYSICIAN] - 01/11/19 10:00 am (follow up with Dr. Chang outpatient.) Cuca Iqbal MD [Primary Care Provider] - 3 Days Patient Instructions/Handouts: Chest Pain (DC) Discharge Disposition: HOME SELF-CARE
[2018-12-28] MEDS ORDERED: GABAPENTIN 300 MG CAP PO SCH (16:00)
[2018-12-28] MEDS ORDERED: metFORMIN 500 MG TAB PO SCH (17:30)
[2018-12-28] MEDS ORDERED: ATORVASTATIN 20 MG TAB PO SCH (21:00)
[2018-12-29] MEDS ORDERED: metFORMIN 500 MG TAB PO SCH (07:30)
[2018-12-29] MEDS ORDERED: PANTOPRAZOLE 40 MG TABLET PO SCH (07:30)
[2018-12-29] MEDS ORDERED: PIOGLITAZONE 30 MG TAB PO SCH (09:00)
== END 2018-12-28 14:16 | disposition home or self-care (01) ==
LOC: EC 16:08 → 1SOBS 19:42
PROVIDERS: ADMIT Hospitalist; ATTEND Hospitalist
DX: R07.89 Other chest pain (principal); J44.9 Chronic obstructive pulmonary disease, unspecified; I10 Essential (primary) hypertension; E78.5 Hyperlipidemia, unspecified; E11.40 Type 2 diabetes mellitus with diabetic neuropathy, unspecified; K21.9 Gastro-esophageal reflux disease without esophagitis; M48.8X2 Other specified spondylopathies, cervical region; F41.0 Panic disorder [episodic paroxysmal anxiety]; F32.9 Major depressive disorder, single episode, unspecified; F41.9 Anxiety disorder, unspecified; E66.01 Morbid (severe) obesity due to excess calories; Z68.41 Body mass index [BMI] 40.0-44.9, adult; Z79.51 Long term (current) use of inhaled steroids; Z79.84 Long term (current) use of oral hypoglycemic drugs; Z79.899 Other long term (current) drug therapy; Z88.1 Allergy status to other antibiotic agents; Z91.041 Radiographic dye allergy status; Z88.5 Allergy status to narcotic agent; Z88.0 Allergy status to penicillin; Z88.8 Allergy status to other drugs, medicaments and biological substances; Z91.048 Other nonmedicinal substance allergy status; Z90.49 Acquired absence of other specified parts of digestive tract; Z87.891 Personal history of nicotine dependence; Z80.8 Family history of malignant neoplasm of other organs or systems; Z83.3 Family history of diabetes mellitus; Z82.49 Family history of ischemic heart disease and other diseases of the circulatory system; Z82.61 Family history of arthritis; Z80.41 Family history of malignant neoplasm of ovary
CPT/HCPCS: 96376; 96361; 96374; 99285; 36415; 93005; 85379; 80061; 80053; 83735; 84484 ×2; 85025; 85610; 85730; 71046; G0378 ×2; J2270

== ENCOUNTER 2019-01-25 13:48 | Emergency (ER) | payer OTHER ==
[2019-01-25 15:38] LABS: HCT 40.1 % (34.0-46.0); HGB 12.7 gm/dL (11.4-16.0); MCV 85.6 fL (80.0-100.0); RBC 4.68 m/uL (3.80-5.40); WBC 7.6 k/uL (3.8-10.6)
[2019-01-25 15:39] LABS: Anisocytosis Slight; Basophils % (A) 0 %; Eosinophils # (A) 0.2 k/uL (0-0.7); Eosinophils % (A) 2 %; Lymphocytes # (A) 1.3 k/uL (1.0-4.8); Lymphocytes % (A) 16 %; MCH 27.1 pg (25.0-35.0); MCHC 31.6 g/dL (31.0-37.0); Mean Platelet Volume 6.6; Monocytes # (A) 0.3 k/uL (0-1.0); Monocytes % (A) 4 %; Neutrophils # (A) 5.7 k/uL (1.3-7.7); Neutrophils % (A) 75 %; Platelet Count 217 k/uL (150-450); RDW 17.8 % (11.5-15.5)
[2019-01-25 15:43] LABS: Appearance,Urine Clear (Clear); Bilirubin,Urine Negative (Negative); Blood,Urine Negative (Negative); Color,Urine Light Yellow; Glucose,Urine (UA) 4+ (Negative); Ketones,Urine Negative (Negative); Leukocyte Esterase,Urine Negative (Negative); Nitrite,Urine Negative (Negative); Protein,Urine Negative (Negative); Specific Gravity,Urine 1.013 (1.001-1.035); Urobilinogen,Urine <2.0 mg/dL (<2.0)
[2019-01-25 15:55] LABS: ALT 23 U/L (9-52); AST 19 U/L (14-36); Albumin 4.2 g/dL (3.5-5.0); Alkaline Phosphatase 97 U/L (38-126); Amylase 61 U/L (30-110); Anion Gap 12 mmol/L; Blood Urea Nitrogen 17 mg/dL (7-17); Calcium 9.8 mg/dL (8.4-10.2); Carbon Dioxide 25 mmol/L (22-30); Chloride 104 mmol/L (98-107); Glucose 106 mg/dL (74-99); Lipase 184 U/L (23-300); Potassium 4.2 mmol/L (3.5-5.1); Sodium 141 mmol/L (137-145); Total Bilirubin 0.5 mg/dL (0.2-1.3)
[2019-01-25] MEDS ORDERED: ONDANSETRON 4 MG/2 ML VIAL IVP STA (16:16)
[2019-01-25] MEDS ORDERED: HYDROmorphone 1 MG/ML 1 ML SYRINGE IVP STA (16:16)
[2019-01-25] MEDS ORDERED: SODIUM CHLORIDE 0.9% 500 ML 500 ML IV ONE (16:19)
[2019-01-25] MEDS ORDERED: PANTOPRAZOLE 40 MG/10 ML VIAL IVP STA (16:20)
--- NOTE | 2019-01-25 16:21 | ED ---
General Adult HPI - General Chief complaint: Abdominal Pain Stated complaint: Abd pain Time Seen by Provider: 01/25/19 16:05 Source: patient, RN notes reviewed, old records reviewed Mode of arrival: ambulatory Limitations: no limitations - History of Present Illness Initial comments: 48-year-old female history of hypertension diabetes, COPD presents for evaluation of epigastric and left-sided abdominal pain. Pain began earlier this morning. She was seen by her color card maker who she follows with with history of anemia. She did have abdominal tenderness after this exam and has presented to the emergency department for evaluation. Denies vomiting she's had some nausea associated with this. Denies chest pain or dyspnea. Denies fever or chills. Denies hematuria or dysuria. Denies any change in her bowels. Pain is localized to the epigastric region and left upper quadrant. - Related Data Home Medications Medication Instructions Recorded Confirmed Montelukast [Singulair] 10 mg PO HS 04/16/17 01/25/19 Losartan Potassium [Cozaar] 25 mg PO DAILY 06/24/17 01/25/19 Pioglitazone [Actos] 30 mg PO DAILY 09/15/17 01/25/19 metFORMIN HCL [Glucophage] 1,000 mg PO AC-SUPPER 01/05/18 01/25/19 metFORMIN HCL [Glucophage] 500 mg PO AC-BID 01/05/18 01/25/19 Atorvastatin [Lipitor] 20 mg PO HS 04/07/18 01/25/19 Albuterol Inhaler [Ventolin Hfa 2 puff INHALATION RT-Q6H PRN 07/13/18 01/25/19 Inhaler] Beclomethasone Dipropionate [Qvar 1 puff INHALATION RT-BID 07/13/18 01/25/19 80 mcg] Ferrous Sulfate [Feosol] 325 mg PO BID 09/14/18 01/25/19 Folic Acid 1 mg PO SUMOTUWETHSA 12/27/18 01/25/19 Liraglutide [Victoza 3-Bandar] 1.2 mg SQ DAILY 12/27/18 01/25/19 Methotrexate Sodium [Methotrexate] 12.5 mg PO FR 12/27/18 01/25/19 Omeprazole 20 mg PO DAILY 12/27/18 01/25/19 PARoxetine HCL [Paxil] 40 mg PO DAILY 12/27/18 01/25/19 Aspirin [Alcorn Aspirin EC] 81 mg PO DAILY 01/25/19 01/25/19 Ertugliflozin Pidolate [Steglatro] 15 mg PO DAILY 01/25/19 01/25/19 Allergies Allergy/AdvReac Type Severity Reaction Status Date / Time adhesive Allergy red skin Verified 01/25/19 16:35 Iodinated Contrast- Oral and Allergy Itching Verified 01/25/19 16:35 IV Dye [Iodinated Contrast Media - IV Dye] metoprolol Allergy Chest Pain Verified 01/25/19 16:35 prednisone Allergy Rapid Verified 01/25/19 16:35 Heart Rate verapamil Allergy Anaphylaxis Verified 01/25/19 16:35 celecoxib [From Celebrex] AdvReac CAUSES GI Verified 01/25/19 16:35 BLEEDING cephalexin monohydrate AdvReac Vomiting Verified 01/25/19 16:35 [From Keflex] diphenhydramine AdvReac arm burned Verified 01/25/19 16:35 [From Benadryl] when given IV Penicillins AdvReac Nausea & Verified 01/25/19 16:35 Vomiting tramadol AdvReac Nausea & Verified 01/25/19 16:35 Vomiting Review of Systems ROS Statement: Those systems with pertinent positive or pertinent negative responses have been documented in the HPI. ROS Other: All systems not noted in ROS Statement are negative. Past Medical History Past Medical History: Asthma, COPD, Diabetes Mellitus, Hypertension Additional Past Medical History / Comment(s): neuoropathy History of Any Multi-Drug Resistant Organisms: None Reported Past Surgical History: Adenoidectomy, Cholecystectomy, Tonsillectomy Additional Past Surgical History / Comment(s): D&C, carpal tunnel surgery left , LT ARM SX FOR "PINCHED NERVE", LT THUMB TRIGGER FINGER, rae neuroma removed left foot, heart cath 2015 , right ankle fx 01/2018 no surgery Past Anesthesia/Blood Transfusion Reactions: Previous Problems w/ Anesthesia, Motion Sickness Additional Past Anesthesia/Blood Transfusion Reaction / Comment(s): difficulty waking from anesthesia Past Psychological History: Anxiety, Depression, Panic Disorder Smoking Status: Former smoker Past Alcohol Use History: Occasional Past Drug Use History: Marijuana - Past Family History Father Family Medical History: Cancer Additional Family Medical History / Comment(s): skin Mother Family Medical History: Diabetes Mellitus, Hypertension, Osteoarthritis (OA) Additional Family Medical History / Comment(s): MURMUR Sister(s) Family Medical History: Cancer Additional Family Medical History / Comment(s): ovarian General Exam Limitations: no limitations General appearance: alert, in no apparent distress Head exam: Present: atraumatic, normocephalic Eye exam: Present: normal appearance, PERRL ENT exam: Present: normal exam Neck exam: Present: normal inspection. Absent: meningismus Respiratory exam: Present: normal lung sounds bilaterally. Absent: respiratory distress Cardiovascular Exam: Present: regular rate, normal rhythm GI/Abdominal exam: Present: soft, tenderness (Epigastric and left lower quadrant tenderness to palpation). Absent: distended, guarding, rebound Extremities exam: Present: normal inspection, normal capillary refill. Absent: pedal edema Neurological exam: Present: alert, oriented X3, CN II-XII intact. Absent: motor sensory deficit Psychiatric exam: Present: normal affect, normal mood Skin exam: Present: warm, dry, intact. Absent: cyanosis, diaphoretic Course Vital Signs 01/25/19 01/25/19 14:01 18:20 Temperature 98.4 F Pulse Rate 108 H Respiratory 20 Rate Blood Pressure 121/84 120/76 O2 Sat by Pulse 96 Oximetry EKG Findings - EKG Comments: EKG Findings:: EKG: Normal sinus rhythm, low voltage, rate of 99, MA interval 138, QRS duration 72, QTC [address] segment elevation Medical Decision Making - Medical Decision Making 48-year-old female presenting with left-sided abdominal pain and epigastric pain. Patient is well-appearing with stable vitals. She has a normal CBC, normal CMP, negative cardiac workup included troponin and EKG. Urinalysis is negative for infection or a mature area. CT is performed which shows incidental finding of subcutaneous edema in the lumbar region she is status post lumbar injections. No acute intra-abdominal process. Patient's symptoms are resolved at the time I reevaluation. She can be discharged home at this time. She will be followed up with her primary care physician and can return to emergency department with any worsening or changing symptoms. - Lab Data Result diagrams: 01/25/19 15:30 01/25/19 15:30 Lab Results 01/25/19 01/25/19 01/25/19 Range/Units 15:30 15:30 15:30 WBC 7.6 (3.8-10.6) k/uL RBC 4.68 (3.80-5.40) m/uL Hgb 12.7 (11.4-16.0) gm/dL Hct 40.1 (34.0-46.0) % MCV 85.6 (80.0-100.0) fL MCH 27.1 (25.0-35.0) pg MCHC 31.6 (31.0-37.0) g/dL RDW 17.8 H (11.5-15.5) % Plt Count 217 (150-450) k/uL Neutrophils % 75 % Lymphocytes % 16 % Monocytes % 4 % Eosinophils % 2 % Basophils % 0 % Neutrophils # 5.7 (1.3-7.7) k/uL Lymphocytes # 1.3 (1.0-4.8) k/uL Monocytes # 0.3 (0-1.0) k/uL Eosinophils # 0.2 (0-0.7) k/uL Basophils # 0.0 (0-0.2) k/uL Anisocytosis Slight Sodium 141 (137-145) mmol/L Potassium 4.2 (3.5-5.1) mmol/L Chloride 104 (98-107) mmol/L Carbon Dioxide 25 (22-30) mmol/L Anion Gap 12 mmol/L BUN 17 (7-17) mg/dL Creatinine 0.80 (0.52-1.04) mg/dL Est GFR (CKD-EPI)AfAm >90 (>60 ml/min/1.73 sqM) Est GFR (CKD-EPI)NonAf 87 (>60 ml/min/1.73 sqM) Glucose 106 H (74-99) mg/dL Calcium 9.8 (8.4-10.2) mg/dL Total Bilirubin 0.5 (0.2-1.3) mg/dL AST 19 (14-36) U/L ALT 23 (9-52) U/L Alkaline Phosphatase 97 (38-126) U/L Troponin I <0.012 (0.000-0.034) ng/mL Total Protein 7.0 (6.3-8.2) g/dL Albumin 4.2 (3.5-5.0) g/dL Amylase 61 (30-110) U/L Lipase 184 (23-300) U/L Urine Color Urine Appearance (Clear) Urine pH (5.0-8.0) Ur Specific Valier (1.001-1.035) Urine Protein (Negative) Urine Glucose (UA) (Negative) Urine Ketones (Negative) Urine Blood (Negative) Urine Nitrite (Negative) Urine Bilirubin (Negative) Urine Urobilinogen (<2.0) mg/dL Ur Leukocyte Esterase (Negative) 01/25/19 01/25/19 Range/Units 15:30 16:23 WBC (3.8-10.6) k/uL RBC (3.80-5.40) m/uL Hgb (11.4-16.0) gm/dL Hct (34.0-46.0) % MCV (80.0-100.0) fL MCH (25.0-35.0) pg MCHC (31.0-37.0) g/dL RDW (11.5-15.5) % Plt Count (150-450) k/uL Neutrophils % % Lymphocytes % % Monocytes % % Eosinophils % % Basophils % % Neutrophils # (1.3-7.7) k/uL Lymphocytes # (1.0-4.8) k/uL Monocytes # (0-1.0) k/uL Eosinophils # (0-0.7) k/uL Basophils # (0-0.2) k/uL Anisocytosis Sodium (137-145) mmol/L Potassium (3.5-5.1) mmol/L Chloride (98-107) mmol/L Carbon Dioxide (22-30) mmol/L Anion Gap mmol/L BUN (7-17) mg/dL Creatinine (0.52-1.04) mg/dL Est GFR (CKD-EPI)AfAm (>60 ml/min/1.73 sqM) Est GFR (CKD-EPI)NonAf (>60 ml/min/1.73 sqM) Glucose (74-99) mg/dL Calcium (8.4-10.2) mg/dL Total Bilirubin (0.2-1.3) mg/dL AST (14-36) U/L ALT (9-52) U/L Alkaline Phosphatase (38-126) U/L Troponin I <0.012 (0.000-0.034) ng/mL Total Protein (6.3-8.2) g/dL Albumin (3.5-5.0) g/dL Amylase (30-110) U/L Lipase (23-300) U/L Urine Color Light Yellow Urine Appearance Clear (Clear) Urine pH 5.0 (5.0-8.0) Ur Specific Valier 1.013 (1.001-1.035) Urine Protein Negative (Negative) Urine Glucose (UA) 4+ H (Negative) Urine Ketones Negative (Negative) Urine Blood Negative (Negative) Urine Nitrite Negative (Negative) Urine Bilirubin Negative (Negative) Urine Urobilinogen <2.0 (<2.0) mg/dL Ur Leukocyte Esterase Negative (Negative) Disposition Clinical Impression: Abdominal pain Disposition: HOME SELF-CARE Condition: Good Instructions (If sedation given, give patient instructions): Abdominal Pain (ED) Is patient prescribed a controlled substance at d/c from ED?: No Referrals: Cuca Iqbal MD [Primary Care Provider] - 1-2 days Time of Disposition: 19:07
[2019-01-25] MEDS ORDERED: FAMOTIDINE 20 MG/2 ML VIAL IV STA (16:53)
[2019-01-25] MEDS ORDERED: methylPREDNISolone SOD SUCCI 125 MG/2 ML VIAL IV STA (16:53)
[2019-01-25] MEDS ORDERED: diphenhydrAMINE 50 MG/ML 1 ML VIAL IVP STA (16:53)
--- NOTE | 2019-01-25 18:24 | CT ---
EXAMINATION TYPE: CT abdomen pelvis w con DATE OF EXAM: 01/25/2019 COMPARISON: 08/01/2018 HISTORY: Abdominal pain. CT DLP: 1742.9 mGycm Automated exposure control for dose reduction was used. TECHNIQUE: Helical acquisition of images was performed from the lung bases through the pelvis. CONTRAST: Performed without Oral Contrast and with IV Contrast, patient injected with 100ml mL of Isovue 300. FINDINGS: Lung bases are clear. There is no pleural effusion. Heart size is normal. There is no pericardial eff usion. Stomach appears normal. There are clips from cholecystectomy. Liver and spleen appear normal. There is no evidence of pancreatic mass. There is no adrenal mass. Kidneys show satisfactory contrast opacification. There is no hydronephrosis. Ureters are not dilated. There is no retroperitoneal evelyn opathy. Bladder distends smoothly. Uterus is anteverted. There is no free fluid in the pelvis. There is no inguinal hernia. There is no evidence of a pelvic mass. There is no mesenteric edema. Appendix appears normal. There is no ascites or free air. There is mild subcutaneous edema over the lower lumbar spine. The bony structures are intact. Bony pelvis is intac t. IMPRESSION: NEGATIVE CT SCAN ABDOMEN AND PELVIS. NO ADVERSE CHANGE COMPARED TO OLD EXAM. STABLE SUBCUTANEOUS EDEMA OVER THE LOWER LUMBAR SPINE.
[2019-01-25 19:21] VITALS: BP 112/74; PULSE 110; RESP 18; TEMP 98.2
== END 2019-01-25 19:21 | disposition home or self-care (01) ==
LOC: EC 13:48
DX: R10.13 Epigastric pain (principal); R10.12 Left upper quadrant pain; R11.0 Nausea; R60.0 Localized edema; J44.9 Chronic obstructive pulmonary disease, unspecified; E11.40 Type 2 diabetes mellitus with diabetic neuropathy, unspecified; I10 Essential (primary) hypertension; D64.9 Anemia, unspecified; F41.9 Anxiety disorder, unspecified; F32.9 Major depressive disorder, single episode, unspecified; Z90.49 Acquired absence of other specified parts of digestive tract; Z95.818 Presence of other cardiac implants and grafts; Z87.891 Personal history of nicotine dependence; Z79.84 Long term (current) use of oral hypoglycemic drugs; Z79.51 Long term (current) use of inhaled steroids; Z79.82 Long term (current) use of aspirin; Z79.899 Other long term (current) drug therapy; Z91.048 Other nonmedicinal substance allergy status; Z91.041 Radiographic dye allergy status; Z88.8 Allergy status to other drugs, medicaments and biological substances; Z88.6 Allergy status to analgesic agent; Z88.1 Allergy status to other antibiotic agents; Z88.0 Allergy status to penicillin; Z88.5 Allergy status to narcotic agent
CPT/HCPCS: 99285; 96374; 96375 ×5; 36415; 93005; 80053; 82150; 83690; 84484; 85025; 81003; 74177; J1200; J2930; J2405; J1170; C9113; Q9967

== ENCOUNTER 2019-01-31 22:23 | Observation (INO) | payer OTHER ==
[2019-01-31] MEDS ORDERED: SODIUM CHLORIDE 0.9% 1,000 ML IV STA ×2 (22:37)
--- NOTE | 2019-01-31 22:38 | ED ---
Neuro HPI - General Chief Complaint: Neuro Symptoms/Deficit Stated Complaint: Numbness on Side Face Time Seen by Provider: 01/31/19 22:37 Source: patient, family, RN notes reviewed, old records reviewed Mode of arrival: ambulatory Limitations: no limitations - History of Present Illness Is the patient presenting with stroke symptoms?: No Last Known Well Date: 01/28/19 -: days(s) Initial Comments: This is a 48-year-old female the ER for evaluation. Patient resents today for e valuation of left jaw. Left mouth pain left-sided chest pain and pain rating to her neck. Into her arm. No current nausea vomiting occasional headaches. Neck pain. With numbness of left-sided. Patient denies fevers. Patient denies shortness of breath cough or congestion. Patient was seen in ER earlier for this last week Location: left face History of same: Yes Place: home Severity: mild Quality: numb, tingling Improves With: none Worsens With: none On Anticoagulants: No Context: gradual onset Associated Symptoms: denies other symptoms - Related Data Home Medications: Home Medications Medication Instructions Recorded Confirmed Montelukast [Singulair] 10 mg PO HS 04/16/17 01/31/19 Losartan Potassium [Cozaar] 25 mg PO DAILY 06/24/17 01/31/19 Pioglitazone [Actos] 30 mg PO DAILY 09/15/17 01/31/19 metFORMIN HCL [Glucophage] 1,000 mg PO AC-SUPPER 01/05/18 01/31/19 metFORMIN HCL [Glucophage] 500 mg PO AC-BID 01/05/18 01/31/19 Atorvastatin [Lipitor] 20 mg PO HS 04/07/18 01/31/19 Albuterol Inhaler [Ventolin Hfa 2 puff INHALATION RT-Q6H PRN 07/13/18 01/31/19 Inhaler] Beclomethasone Dipropionate [Qvar 1 puff INHALATION RT-BID 07/13/18 01/31/19 80 mcg] Ferrous Sulfate [Feosol] 325 mg PO BID 09/14/18 01/31/19 Folic Acid 1 mg PO SUMOTUWETHSA 12/27/18 01/31/19 Liraglutide [Victoza 3-Bandar] 1.2 mg SQ DAILY 12/27/18 01/31/19 Methotrexate Sodium [Methotrexate] 12.5 mg PO FR 12/27/18 01/31/19 Omeprazole 20 mg PO DAILY 12/27/18 01/31/19 PARoxetine HCL [Paxil] 40 mg PO DAILY 12/27/18 01/31/19 Aspirin [Warren Aspirin EC] 81 mg PO DAILY 01/25/19 01/31/19 Ertugliflozin Pidolate [Steglatro] 15 mg PO DAILY 01/25/19 01/31/19 Allergies/Adverse Reactions: Allergies Allergy/AdvReac Type Severity Reaction Status Date / Time adhesive Allergy red skin Verified 01/31/19 22:44 Iodinated Contrast- Oral and Allergy Itching Verified 01/31/19 22:44 IV Dye [Iodinated Contrast Media - IV Dye] metoprolol Allergy Chest Pain Verified 01/31/19 22:44 prednisone Allergy Rapid Verified 01/31/19 22:44 Heart Rate verapamil Allergy Anaphylaxis Verified 01/31/19 22:44 celecoxib [From Celebrex] AdvReac CAUSES GI Verified 01/31/19 22:44 BLEEDING cephalexin monohydrate AdvReac Vomiting Verified 01/31/19 22:44 [From Keflex] diphenhydramine AdvReac arm burned Verified 01/31/19 22:44 [From Benadryl] when given IV Penicillins AdvReac Nausea & Verified 01/31/19 22:44 Vomiting tramadol AdvReac Nausea & Verified 01/31/19 22:44 Vomiting Review of Systems ROS Statement: Those systems with pertinent positive or pertinent negative responses have been documented in the HPI. ROS Other: All systems not noted in ROS Statement are negative. General Exam Limitations: no limitations General appearance: alert, in no apparent distress Head exam: Present: atraumatic, normocephalic, normal inspection Eye exam: Present: normal appearance, PERRL, EOMI. Absent: scleral icterus, conjunctival injection, periorbital swelling ENT exam: Present: normal exam, mucous membranes moist Neck exam: Present: normal inspection. Absent: tenderness, meningismus, lymphadenopathy Respiratory exam: Present: normal lung sounds bilaterally. Absent: respiratory distress, wheezes, rales, rhonchi, stridor Cardiovascular Exam: Present: regular rate, normal rhythm, normal heart sounds. Absent: systolic murmur, diastolic murmur, rubs, gallop, clicks GI/Abdominal exam: Present: soft, normal bowel sounds. Absent: distended, tenderness, guarding, rebound, rigid Extremities exam: Present: normal inspection, full ROM, normal capillary refill. Absent: tenderness, pedal edema, joint swelling, calf tenderness Back exam: Present: normal inspection Neurological exam: Present: alert, oriented X3, CN II-XII intact Psychiatric exam: Present: normal affect, normal mood Skin exam: Present: warm, dry, intact, normal color. Absent: rash Stroke MDM - Lab Data Result diagrams: 01/31/19 22:54 01/31/19 22:54 Lab Results 01/31/19 01/31/19 01/31/19 Range/Units 22:54 22:54 22:54 WBC 10.4 (3.8-10.6) k/uL RBC 4.70 (3.80-5.40) m/uL Hgb 13.0 (11.4-16.0) gm/dL Hct 39.9 (34.0-46.0) % MCV 84.8 (80.0-100.0) fL MCH 27.6 (25.0-35.0) pg MCHC 32.5 (31.0-37.0) g/dL RDW 18.7 H (11.5-15.5) % Plt Count 248 (150-450) k/uL Neutrophils % 75 % Lymphocytes % 16 % Monocytes % 4 % Eosinophils % 3 % Basophils % 1 % Neutrophils # 7.8 H (1.3-7.7) k/uL Lymphocytes # 1.6 (1.0-4.8) k/uL Monocytes # 0.4 (0-1.0) k/uL Eosinophils # 0.3 (0-0.7) k/uL Basophils # 0.1 (0-0.2) k/uL Anisocytosis Slight PT 9.9 (9.0-12.0) sec INR 0.9 (<1.2) APTT 24.0 (22.0-30.0) sec Sodium 137 (137-145) mmol/L Potassium 4.1 (3.5-5.1) mmol/L Chloride 100 (98-107) mmol/L Carbon Dioxide 25 (22-30) mmol/L Anion Gap 12 mmol/L BUN 23 H (7-17) mg/dL Creatinine 0.89 (0.52-1.04) mg/dL Est GFR (CKD-EPI)AfAm 88 (>60 ml/min/1.73 sqM) Est GFR (CKD-EPI)NonAf 76 (>60 ml/min/1.73 sqM) Glucose 133 H (74-99) mg/dL Calcium 9.4 (8.4-10.2) mg/dL Total Bilirubin 0.7 (0.2-1.3) mg/dL AST 30 (14-36) U/L ALT 33 (9-52) U/L Alkaline Phosphatase 92 (38-126) U/L Troponin I (0.000-0.034) ng/mL Total Protein 6.9 (6.3-8.2) g/dL Albumin 4.2 (3.5-5.0) g/dL 01/31/19 Range/Units 22:54 WBC (3.8-10.6) k/uL RBC (3.80-5.40) m/uL Hgb (11.4-16.0) gm/dL Hct (34.0-46.0) % MCV (80.0-100.0) fL MCH (25.0-35.0) pg MCHC (31.0-37.0) g/dL RDW (11.5-15.5) % Plt Count (150-450) k/uL Neutrophils % % Lymphocytes % % Monocytes % % Eosinophils % % Basophils % % Neutrophils # (1.3-7.7) k/uL Lymphocytes # (1.0-4.8) k/uL Monocytes # (0-1.0) k/uL Eosinophils # (0-0.7) k/uL Basophils # (0-0.2) k/uL Anisocytosis PT (9.0-12.0) sec INR (<1.2) APTT (22.0-30.0) sec Sodium (137-145) mmol/L Potassium (3.5-5.1) mmol/L Chloride (98-107) mmol/L Carbon Dioxide (22-30) mmol/L Anion Gap mmol/L BUN (7-17) mg/dL Creatinine (0.52-1.04) mg/dL Est GFR (CKD-EPI)AfAm (>60 ml/min/1.73 sqM) Est GFR (CKD-EPI)NonAf (>60 ml/min/1.73 sqM) Glucose (74-99) mg/dL Calcium (8.4-10.2) mg/dL Total Bilirubin (0.2-1.3) mg/dL AST (14-36) U/L ALT (9-52) U/L Alkaline Phosphatase (38-126) U/L Troponin I <0.012 (0.000-0.034) ng/mL Total Protein (6.3-8.2) g/dL Albumin (3.5-5.0) g/dL - NIH Stroke Scale 1a. Level of Consciousness: (0) alert 1b. LOC Questions: (0) answers correctly 1c. LOC Commands: (0) performs tasks correctly 2. Best Gaze: (0) normal 3. Visual: (0) no visual loss 4. Facial Palsy: (0) normal symmetrical movement 5a. Motor Arm Left: (0) no drift 5b. Motor Arm Right: (0) no drift 6a. Motor Leg Left: (0) no drift 6b. Motor Leg Right: (0) no drift 7. Limb Ataxia: (0) absent 8. Sensory: (0) normal 9. Best Language: (0) no aphasia 10. Dysarthria: (0) normal 11. Extinction/Inattention: (0) no abnormality - Thrombolytic Inclusion/Exclusion Thrombolytic Exclusion Criteria: Symptom Onset > 3 Hours - Medical Decision Making 48-year-old female the hip fracture. Patient resents today for evaluation of multiple complaints left-sided facial numbness left-sided chest pain. Patient be admitted for evaluation by cardiology and neurology - Radiology Data Radiology results: report reviewed (CT brain negative CTA chest negative for acute disease), image reviewed - EKG Data -: EKG Interpreted by Me (EKG shows sinus rhythm rate of tachycardia rate of 121, MO 136, QRS 72, QTc) Past Medical History Past Medical History: Asthma, COPD, Diabetes Mellitus, Hypertension Additional Past Medical History / Comment(s): neuoropathy History of Any Multi-Drug Resistant Organisms: None Reported Past Surgical History: Adenoidectomy, Cholecystectomy, Tonsillectomy Additional Past Surgical History / Comment(s): D&C, carpal tunnel surgery left , LT ARM SX FOR "PINCHED NERVE", LT THUMB TRIGGER FINGER, rae neuroma removed left foot, heart cath 2015 , right ankle fx 01/2018 no surgery Past Anesthesia/Blood Transfusion Reactions: Previous Problems w/ Anesthesia, Motion Sickness Additional Past Anesthesia/Blood Transfusion Reaction / Comment(s): difficulty waking from anesthesia Past Psychological History: Anxiety, Depression, Panic Disorder Smoking Status: Former smoker - Past Family History Father Family Medical History: Cancer Additional Family Medical History / Comment(s): skin Mother Family Medical History: Diabetes Mellitus, Hypertension, Osteoarthritis (OA) Additional Family Medical History / Comment(s): MURMUR Sister(s) Family Medical History: Cancer Additional Family Medical History / Comment(s): ovarian Course Vital Signs 01/31/19 22:29 Temperature 97.9 F Pulse Rate 124 H Respiratory 20 Rate Blood Pressure 132/82 O2 Sat by Pulse 98 Oximetry - Reevaluation(s) Reevaluation #1: 01/31/19 23:44 Medical record and prior ER visit is reviewed Reevaluation #2: 01/31/19 23:44 Patient has no change in symptoms Disposition Clinical Impression: Transient ischemic attack (TIA), Chest pain, Chronic pain syndrome Disposition: ADMITTED IP TO THIS HOSP Condition: Undetermined Is patient prescribed a controlled substance at d/c from ED?: No Referrals: Cuca Iqbal MD [Primary Care Provider] - 1-2 days
[2019-01-31] MEDS ORDERED: FAMOTIDINE 20 MG/2 ML VIAL IV STA (22:57)
[2019-01-31] MEDS ORDERED: methylPREDNISolone SOD SUCCI 125 MG/2 ML VIAL IV STA (22:57)
[2019-01-31 23:09] LABS: Anisocytosis Slight; Basophils # (A) 0.1 k/uL (0-0.2); Basophils % (A) 1 %; Eosinophils # (A) 0.3 k/uL (0-0.7); Eosinophils % (A) 3 %; HCT 39.9 % (34.0-46.0); Lymphocytes # (A) 1.6 k/uL (1.0-4.8); Lymphocytes % (A) 16 %; MCH 27.6 pg (25.0-35.0); MCHC 32.5 g/dL (31.0-37.0); MCV 84.8 fL (80.0-100.0); Mean Platelet Volume 7.1; Monocytes # (A) 0.4 k/uL (0-1.0); Monocytes % (A) 4 %; Neutrophils # (A) 7.8 k/uL (1.3-7.7); Neutrophils % (A) 75 %; Platelet Count 248 k/uL (150-450); RDW 18.7 % (11.5-15.5); WBC 10.4 k/uL (3.8-10.6)
[2019-01-31 23:17] LABS: Albumin 4.2 g/dL (3.5-5.0); Calcium 9.4 mg/dL (8.4-10.2); Potassium 4.1 mmol/L (3.5-5.1); Total Bilirubin 0.7 mg/dL (0.2-1.3); Total Protein 6.9 g/dL (6.3-8.2)
[2019-01-31 23:23] LABS: INR 0.9 (<1.2); Prothrombin Time 9.9 sec (9.0-12.0)
--- NOTE | 2019-01-31 23:57 | CT ---
EXAM: CT Head Without Intravenous Contrast CLINICAL HISTORY: Neuro Deficits TECHNIQUE: Axial computed tomography images of the head/brain without intravenous contrast. DLP is 1158.4 mGy-cm. This CT exam was performed using one or more of the following dose reduction techniques: automated exposure control, adjustment of the mA and/or kV according to patient size, and/or use of iterative reconstruction technique. Coronal and sagittal reconstructions are performed COMPARISON: No relevant prior studies available. FINDINGS: Brain: Unremarkable. No hemorrhage. No significant white matter disease. No edema. Ventricles: Unremarkable. No ventriculomegaly. Bones/joints: Unremarkable. No acute fracture. Soft tissues: Unremarkable. Sinuses: Unremarkable as visualized. No acute sinusitis. Mastoid air cells: Unremarkable as visualized. No mastoid effusion. IMPRESSION: Normal head/brain CT.
--- NOTE | 2019-02-01 00:25 | CT ---
EXAM: CT Angiography Chest With Intravenous Contrast CLINICAL HISTORY: chest pain, numbness TECHNIQUE: Axial computed tomographic angiography images of the chest with intravenous contrast using pulmonary embolism protocol. DLP is 855.9 mGy- cm. This CT exam was performed using one or more of the following dose reduction techniques: automated exposure control, adjustment of the mA and/or kV according to patient size, and/or use of iterative reconstruction technique. MIP reconstructed images were created and reviewed. Coronal and sagittal reformatted images were created and reviewed. COMPARISON: No relevant prior studies available. FINDINGS: Pulmonary arteries: No pulmonary embolism. Normal thoracic aorta. Aorta: No acute findings. No thoracic aortic aneurysm. Lungs: Unremarkable. No mass. No consolidation. Pleural space: Unremarkable. No significant effusion. No pneumothorax. Heart: Unremarkable. No cardiomegaly. No significant pericardial effusion. No evidence of RV dysfunction. Thyroid: 16 mm hypodense nodule left lobe of thyroid gland. Bones/joints: Mild degenerative changes. Soft tissues: Unremarkable. Lymph nodes: Unremarkable. No enlarged lymph nodes. Liver: Suspect fatty liver. Gallbladder and bile ducts: Cholecystectomy clips. IMPRESSION: No acute findings.
[2019-02-01] MEDS ORDERED: NITROGLYCERIN SL TABS 0.4 MG TAB SUBLINGUAL PRN (01:09)
[2019-02-01] MEDS: SODIUM CHLORIDE 0.9% 1,000 ML IV SCH ×2 (01:34→10:01)
[2019-02-01] MEDS: MORPHINE SULFATE 4 MG/ML SYRINGE IV PRN ×2 (02:14→05:52)
[2019-02-01 03:49] VITALS: BMI 43.6
[2019-02-01 08:13] VITALS: RESP 18
--- NOTE | 2019-02-01 08:39 | P.CRDCN ---
History of Present Illness Consult date: 02/01/19 Requesting physician: Ciro Flores Consult reason: chest pain Chief complaint: chest pain History of present illness: This is a pleasant 48-year-old female who follows with Dr. Chang in the office. She has a history of diabetes, hyperlipidemia, COPD, thyroid nodules, former nicotine dependence, obesity, presents to the hospital with symptoms of chest pain she describes as a sharp pain underneath her left breast. Patient also states that she gets some discomfort in the left side of her face with associated numbness. She is complaining of headache as well as. She did present to the emergency room on the of this month CT of the abdomen and pelvis was performed at that time which was negative as compared with prior, stable subcutaneous edema over the lower lumbar spine was noted. EKG showed a normal sinus rhythm with no acute changes. Patient was discharged from the emergency center, and Repro presented back to the hospital with symptoms of pain underneath her left breast. According to the patient the symptoms have been occurring for the past 2 weeks, constant, worsens with deep breathing and movement, tenderness to the chest wall. Patient does complain of bilateral facial numbness this morning as well as headache. CAT scan of the brain was performed which was normal. CTA of the chest negative for pulmonary embolism. EKG this admission shows normal sinus rhythm with no acute changes. Blood pressure 132/80 with a heart rate in the 90s to low 100s. White blood cell count 10.4, hemoglobin 13, platelet count 248. Sodium 137, potassium 4.1, BUN 23 and creatinine 0.8. Troponins are negative 3. Past Medical History Past Medical History: Asthma, COPD, Diabetes Mellitus, Hypertension Additional Past Medical History / Comment(s): neuoropathy History of Any Multi-Drug Resistant Organisms: None Reported Past Surgical History: Adenoidectomy, Cholecystectomy, Tonsillectomy Additional Past Surgical History / Comment(s): D&C, carpal tunnel surgery left , LT ARM SX FOR "PINCHED NERVE", LT THUMB TRIGGER FINGER, rae neuroma removed left foot, heart cath 2015 , right ankle fx 01/2018 no surgery Past Anesthesia/Blood Transfusion Reactions: Previous Problems w/ Anesthesia, Motion Sickness Additional Past Anesthesia/Blood Transfusion Reaction / Comment(s): difficulty waking from anesthesia Past Psychological History: Anxiety, Depression, Panic Disorder Additional Psychological History / Comment(s): niece is her field care advocate. Smoking Status: Never smoker Past Alcohol Use History: Occasional Additional Past Alcohol Use History / Comment(s): Patient started smoking at age 13 one half pack per day and quit around 1991 Past Drug Use History: Marijuana Additional Drug Use History / Comment(s): . - Past Family History Father Family Medical History: Cancer Additional Family Medical History / Comment(s): skin Mother Family Medical History: Diabetes Mellitus, Hypertension, Osteoarthritis (OA) Additional Family Medical History / Comment(s): MURMUR Sister(s) Family Medical History: Cancer Additional Family Medical History / Comment(s): ovarian Medications and Allergies Home Medications Medication Instructions Recorded Confirmed Type Montelukast [Singulair] 10 mg PO HS 04/16/17 01/31/19 History Losartan Potassium [Cozaar] 25 mg PO DAILY 06/24/17 01/31/19 History Pioglitazone [Actos] 30 mg PO DAILY 09/15/17 01/31/19 History metFORMIN HCL [Glucophage] 1,000 mg PO AC-SUPPER 01/05/18 01/31/19 History metFORMIN HCL [Glucophage] 500 mg PO AC-BID 01/05/18 01/31/19 History Atorvastatin [Lipitor] 20 mg PO HS 04/07/18 01/31/19 History Albuterol Inhaler [Ventolin Hfa 2 puff INHALATION RT-Q6H PRN 07/13/18 01/31/19 History Inhaler] Beclomethasone Dipropionate [Qvar 1 puff INHALATION RT-BID 07/13/18 01/31/19 History 80 mcg] Ferrous Sulfate [Feosol] 325 mg PO BID 09/14/18 01/31/19 History Folic Acid 1 mg PO SUMOTUWETHSA 12/27/18 01/31/19 History Liraglutide [Victoza 3-Bandar] 1.2 mg SQ DAILY 12/27/18 01/31/19 History Methotrexate Sodium [Methotrexate] 12.5 mg PO FR 12/27/18 01/31/19 History Omeprazole 20 mg PO DAILY 12/27/18 01/31/19 History PARoxetine HCL [Paxil] 40 mg PO DAILY 12/27/18 01/31/19 History Aspirin [Bristol Aspirin EC] 81 mg PO DAILY 01/25/19 01/31/19 History Ertugliflozin Pidolate [Steglatro] 15 mg PO DAILY 01/25/19 01/31/19 History Allergies Allergy/AdvReac Type Severity Reaction Status Date / Time adhesive Allergy red skin Verified 01/31/19 22:44 Iodinated Contrast- Oral and Allergy Itching Verified 01/31/19 22:44 IV Dye [Iodinated Contrast Media - IV Dye] metoprolol Allergy Chest Pain Verified 01/31/19 22:44 prednisone Allergy Rapid Verified 01/31/19 22:44 Heart Rate verapamil Allergy Anaphylaxis Verified 01/31/19 22:44 celecoxib [From Celebrex] AdvReac CAUSES GI Verified 01/31/19 22:44 BLEEDING cephalexin monohydrate AdvReac Vomiting Verified 01/31/19 22:44 [From Keflex] diphenhydramine AdvReac arm burned Verified 01/31/19 22:44 [From Benadryl] when given IV Penicillins AdvReac Nausea & Verified 01/31/19 22:44 Vomiting tramadol AdvReac Nausea & Verified 01/31/19 22:44 Vomiting Physical Exam Vitals: Vital Signs Temp Pulse Pulse Resp BP BP Pulse Ox 02/01/19 08:00 98.3 F 117 H 18 133/81 91 L 02/01/19 06:09 97.2 F L 76 16 120/70 96 02/01/19 04:00 98 F 112 H 16 122/79 96 02/01/19 03:09 98 F 74 16 147/90 97 02/01/19 02:30 19 02/01/19 02:00 98.7 F 114 H 23 125/61 97 02/01/19 01:37 97.6 F 118 H 18 143/93 97 02/01/19 01:00 111 H 22 113/69 95 02/01/19 00:00 110 H 27 H 131/87 95 01/31/19 23:11 125 H 22 133/82 90 L 01/31/19 22:29 97.9 F 124 H 20 132/82 98 Intake and Output 01/31/19 02/01/19 02/01/19 22:59 06:59 14:59 Intake Total 50 Balance 50 Intake: Oral 50 Other: # Voids 2 Weight 115.212 kg 114 kg PHYSICAL EXAMINATION: GENERAL: 48 year-old female in no acute distress at the time of my examination HEENT: Head is atraumatic, normocephalic. Pupils equal, round. Sclera anicteric. Conjunctiva are clear. Mucous membranes of the mouth are moist. Neck is supple. There is no elevated jugular venous pressure. No carotid bruit is heard. HEART EXAMINATION: Heart S1, S2 normal. No murmur or gallop heard. CHEST EXAMINATION: Lungs are clear to auscultation and precussion. Positive chest wall tenderness is noted on palpation or with deep breathing. ABDOMEN: Soft, obese, nontender.. EXTREMITIES: 2+ peripheral pulses with no evidence of peripheral edema and no calf tenderness noted. NEUROLOGIC patient is awake, alert and oriented 3. . Results 01/31/19 22:54 01/31/19 22:54 Cardiac Enzymes 01/31/19 01/31/19 02/01/19 Range/Units 22:54 22:54 05:34 AST 30 (14-36) U/L Troponin I <0.012 <0.012 (0.000-0.034) ng/mL Coagulation 01/31/19 Range/Units 22:54 PT 9.9 (9.0-12.0) sec APTT 24.0 (22.0-30.0) sec CBC 01/31/19 Range/Units 22:54 WBC 10.4 (3.8-10.6) k/uL RBC 4.70 (3.80-5.40) m/uL Hgb 13.0 (11.4-16.0) gm/dL Hct 39.9 (34.0-46.0) % Plt Count 248 (150-450) k/uL Comprehensive Metabolic Panel 01/31/19 Range/Units 22:54 Sodium 137 (137-145) mmol/L Potassium 4.1 (3.5-5.1) mmol/L Chloride 100 (98-107) mmol/L Carbon Dioxide 25 (22-30) mmol/L BUN 23 H (7-17) mg/dL Creatinine 0.89 (0.52-1.04) mg/dL Glucose 133 H (74-99) mg/dL Calcium 9.4 (8.4-10.2) mg/dL AST 30 (14-36) U/L ALT 33 (9-52) U/L Alkaline Phosphatase 92 (38-126) U/L Total Protein 6.9 (6.3-8.2) g/dL Albumin 4.2 (3.5-5.0) g/dL Current Medications Generic Name Dose Route Start Last Admin Trade Name Albaro PRN Reason Stop Dose Admin Aspirin 325 mg 02/02/19 09:00 Aspirin PO DAILY COUNT INCLUDES THE [facility] Atorvastatin Calcium 80 mg 02/01/19 09:00 Lipitor PO DAILY MICHAEL Sodium Chloride 1,000 mls @ 100 mls/hr 01/31/19 22:37 01/31/19 23:10 Saline 0.9% IV 02/01/19 08:36 100 mls/hr .Q10H STA Administration Sodium Chloride 1,000 mls @ 100 mls/hr 02/01/19 01:15 02/01/19 01:34 Saline 0.9% IV Not Given .Q10H MICHAEL Morphine Sulfate 4 mg 02/01/19 01:09 02/01/19 05:52 Morphine Sulfate (Inj) IV 4 mg Q4HR PRN Administration Chest Pain Nitroglycerin 0.4 mg 02/01/19 01:09 Nitrostat SUBLINGUAL Q5M PRN Chest Pain Intake and Output 01/31/19 02/01/19 02/01/19 22:59 06:59 14:59 Intake Total 50 Balance 50 Intake: Oral 50 Other: # Voids 2 Weight 115.212 kg 114 kg 01/31/19 22:54 01/31/19 22:54 EKG Interpretations (text) EKG shows normal sinus rhythm with no acute changes. Assessment and Plan Plan: Assessment and plan #1 chest pain, atypical for acute coronary syndrome, troponins have been negative 3. #2 diabetes #3 hyperlipidemia #4 morbid obesity #5 thyroid nodules #6 hypertension Plan We will obtain an echocardiogram with Doppler study. We will also obtain a TSH level. We will get Dr. Chang's office note to see when the patient last underwent stress testing, her pain however is very pleuritic and musculoskeletal in nature. She had an echocardiogram with Doppler study performed in April 2018 which revealed a normal left ventricular systolic function at that time. Further recommendations to follow. DNP note has been reviewed, I agree with a documented findings and plan of care. Patient was seen and examined.
[2019-02-01] MEDS ORDERED: ATORVASTATIN 80 MG TAB PO SCH (09:00)
--- NOTE | 2019-02-01 09:46 | ECHOF ---
Referral Reason:chest pain MEASUREMENTS -------- HEIGHT: 162.6 cm WEIGHT: 113.9 kg BP: RVIDd: 2.6 cm (< 3.3) IVSd: 1.6 cm (0.6 - 1.1) LVIDd: 2.7 cm (3.9 - 5.3) LVPWd: 1.8 cm (0.6 - 1.1) IVSs: 2.3 cm LVIDs: 2.2 cm LVPWs: 1.9 cm Ao Diam: 3.7 cm (2.0 - 3.7) AV Cusp: 2.0 cm (1.5 - 2.6) LA Diam: 3.1 cm (2.7 - 3.8) MV EXCURSION: 14.317 mm (> 18.000) MV EF SLOPE: 94 mm/s (70 - 150) EPSS: 0.5 cm MV E Shaheed: 0.38 m/s MV DecT: 162 ms MV A Shaheed: 0.34 m/s MV E/A Ratio: 1.11 AV maxP.28 mmHg AV meanP.06 mmHg RAP: 5.00 mmHg RVSP: 13.29 mmHg FINDINGS -------- Resting tachycardia (HR>100bpm). This was a technically difficult study with suboptimal views. The left ventricular size is normal. There is severe concentric left ventricular hypertrophy. Ove rall left ventricular systolic function is normal with, an EF between 55 - 60 %. The right ventricle is normal in size. The left atrial size is normal. The right atrial size is normal. Lumason used The aortic valve is bicuspid. There is mild aortic stenosis present. Peak/mean gradient across th e Aortic Valve is 18.28mmHg / 11.06mmHg. Aortic valve is functionally bicuspid and is mildly thicke mika. There is trace mitral regurgitation. Trace tricuspid regurgitation present. The right ventricular systolic pressure, as measured by Dopp ler, is 13.29mmHg. There is no pulmonic regurgitation present. The aortic root size is normal. IVC Not well visulized. There is no pericardial effusion. CONCLUSIONS -------- 1. Resting tachycardia (HR>100bpm). 2. This was a technically difficult study with suboptimal views. 3. The left ventricular size is normal. 4. There is severe concentric left ventricular hypertrophy. 5. Overall left ventricular systolic function is normal with, an EF between 55 - 60 %. 6. The right ventricle is normal in size. 7. The left atrial size is normal. 8. The right atrial size is normal. 9. Lumason used 10. The aortic valve is bicuspid. 11. There is mild aortic stenosis present. 12. Peak/mean gradient across the Aortic Valve is 18.28mmHg / 11.06mmHg. 13. Aortic valve is functionally bicuspid and is mildly thickened. 14. There is trace mitral regurgitation. 15. Trace tricuspid regurgitation present. 16. The right ventricular systolic pressure, as measured by Doppler, is 13.29mmHg. 17. There is no pulmonic regurgitation present. 18. The aortic root size is normal. 19. IVC Not well visulized. 20. There is no pericardial effusion. BILLING CHECKER: Sara Snyder RDCS
[2019-02-01] MEDS ORDERED: KETOROLAC 30 MG/ML 1 ML VIAL IVP STA (09:50)
[2019-02-01] MEDS ORDERED: DOBUTamine DRIP for NUC MED 500 MG in DEXTROSE/WATER 1 250ML.BAG IV ONE (10:18)
[2019-02-01] MEDS ORDERED: METOPROLOL TARTRATE 5 MG/5 ML VIAL IVP ONE (11:35)
[2019-02-01] MEDS ORDERED: ALBUTEROL NEBULIZED 2.5 MG/3 ML INHALATION PRN (11:42)
[2019-02-01] MEDS ORDERED: FOLIC ACID 1 MG TAB PO SCH (11:45)
[2019-02-01 11:53] LABS: Glucose,Whole Blood 196 mg/dL (75-99)
--- NOTE | 2019-02-01 13:00 | ECHOS ---
STRESS ECHOCARDIOGRAM DATE OF SERVICE: 02/01/2019 INDICATIONS: Chest discomfort. MEDICATIONS: BASELINE HEART RATE: 103 BASELINE BLOOD PRESSURE: 127/86 MAXIMUM HEART RATE: 152 MAXIMUM BLOOD PRESSURE: 156/63 85% MPHR: 145 100% MPHR: 170 METS: MAXIMUM STAGE REACHED: TOTAL EXERCISE TIME: CLINICAL INFORMATION: STRESS DATA: Pretesting physical examination showed a heart rate of 103, pressure is 127/86 mmHg. Baseline EKG showed sinus rhythm. Dobutamine infusion at a dose of 10 mcg/kg per minute was initiated and increased to 20 mcg/kg per minute per protocol. Max heart rate was 152, which is about 89% of maximum predicted heart rate. Maximum blood pressure was 156/ mmHg. Clinically the patient did not have any symptoms of chest pain or discomfort and the EKG did not show any significant ST or T-wave abnormalities concerning for ischemia. ECHOCARDIOGRAM: On echocardiogram images from parasternal long axis view, parasternal short axis view, apical 4 chamber and apical 2 chamber view were obtained as the baseline images, at low dose dobutamine infusion, at peak heart rate, as well as on recovery. The echocardiogram images showed overall good augmentation in the left ventricular systolic function without obvious wall motion abnormalities concerning for ischemia. CONCLUSION: 1. Normal EKG in response to dobutamine. 2. Normal echocardiogram in response to dobutamine. MMODL / IJN: [id number] /
[2019-02-01] MEDS ORDERED: PIOGLITAZONE 30 MG TAB PO STA (14:39)
[2019-02-01] MEDS ORDERED: LIRAGLUTIDE SQ SCH (15:00)
--- NOTE | 2019-02-01 15:04 | P.DS ---
Providers Date of admission: 02/01/19 01:09 Attending physician: Ciro Flores Consults: 02/01/19 01:09 Consult Physician Routine Consulting Provider: Shell Rahman Consult Reason/Comments: tia Do you want consulting provider notified?: Yes Consult Physician Urgent Consulting Provider: Allan Chang Consult Reason/Comments: cp Do you want consulting provider notified?: Yes Primary care physician: [facility] Course: Please refer to my HPI Patient Condition at Discharge: Undetermined Plan - Discharge Summary Discharge Rx Participant: No New Discharge Prescriptions: New Metoprolol Tartrate 25 mg PO BID #60 tab Continue Montelukast [Singulair] 10 mg PO HS Losartan Potassium [Cozaar] 25 mg PO DAILY Pioglitazone [Actos] 30 mg PO DAILY metFORMIN HCL [Glucophage] 500 mg PO AC-BID metFORMIN HCL [Glucophage] 1,000 mg PO AC-SUPPER Atorvastatin [Lipitor] 20 mg PO HS Beclomethasone Dipropionate [Qvar 80 mcg] 1 puff INHALATION RT-BID Albuterol Inhaler [Ventolin Hfa Inhaler] 2 puff INHALATION RT-Q6H PRN PRN Reason: Shortness Of Breath Ferrous Sulfate [Feosol] 325 mg PO BID Methotrexate Sodium [Methotrexate] 12.5 mg PO FR Liraglutide [Victoza 3-Bandar] 1.2 mg SQ DAILY Folic Acid 1 mg PO SUMOTUWETHSA PARoxetine HCL [Paxil] 40 mg PO DAILY Omeprazole 20 mg PO DAILY Aspirin [[place] Aspirin EC] 81 mg PO DAILY Ertugliflozin Pidolate [Steglatro] 15 mg PO DAILY Discharge Medication List Montelukast [Singulair] 10 mg PO HS 04/16/17 [History] Losartan Potassium [Cozaar] 25 mg PO DAILY 06/24/17 [History] Pioglitazone [Actos] 30 mg PO DAILY 09/15/17 [History] metFORMIN HCL [Glucophage] 1,000 mg PO AC-SUPPER 01/05/18 [History] metFORMIN HCL [Glucophage] 500 mg PO AC-BID 01/05/18 [History] Atorvastatin [Lipitor] 20 mg PO HS 04/07/18 [History] Albuterol Inhaler [Ventolin Hfa Inhaler] 2 puff INHALATION RT-Q6H PRN 07/13/18 [History] Beclomethasone Dipropionate [Qvar 80 mcg] 1 puff INHALATION RT-BID 07/13/18 [History] Ferrous Sulfate [Feosol] 325 mg PO BID 09/14/18 [History] Folic Acid 1 mg PO SUMOTUWETHSA 12/27/18 [History] Liraglutide [Victoza 3-Bandar] 1.2 mg SQ DAILY 12/27/18 [History] Methotrexate Sodium [Methotrexate] 12.5 mg PO FR 12/27/18 [History] Omeprazole 20 mg PO DAILY 12/27/18 [History] PARoxetine HCL [Paxil] 40 mg PO DAILY 12/27/18 [History] Aspirin [[place] Aspirin EC] 81 mg PO DAILY 01/25/19 [History] Ertugliflozin Pidolate [Steglatro] 15 mg PO DAILY 01/25/19 [History] Metoprolol Tartrate 25 mg PO BID #60 tab 02/01/19 [Rx] Follow up Appointment(s)/Referral(s): Cuca Iqbal MD [Primary Care Provider] - 1-2 days
--- NOTE | 2019-02-01 15:04 | P.HPIM ---
History of Present Illness 48-year-old female came in with compensative chest pain mostly neck pain patient also complains about tingling and numbness on the whole left side of the face with some numbness in the left arm. Patient chest pain is pleuritic in nature because of which we obtain a d-dimer which is negative patient does not have any pneumonia on the chest x-ray CT angios the chest is negative for PE patient was a evaluated by cardiology patient appears to have noncardiac chest pain that cleared for discharge patient also and underwent stress test which was negative for any inducible ischemia patient pain is sharp in nature moderate severity. Patient had a EGD of the brain which did not show any acute stroke. Patient clinical symptomology is not consistent with stroke. Patient will be a valid by neurology and they cleared her patient will be discharged today patient takes aspirin at home and got him lipase panel available at this time which can be obtain an managed as an outpatient. My suspicion of stroke is extremely low patient follows up for the with the doctors Hunter caballero as an outpatient for pain management patient appears to have some chronic pain issues. Review of Systems REVIEW OF SYSTEMS: CONSTITUTIONAL: No fever, no malaise, no fatigue. HEENT: No recent visual problems or hearing problems. Denied any sore throat. CARDIOVASCULAR: No orthopnea, PND, no palpitations, no syncope. PULMONARY: No shortness of breath, no cough, no hemoptysis. GASTROINTESTINAL: No diarrhea, no nausea, no vomiting, no abdominal pain. NEUROLOGICAL: No headaches, no weakness HEMATOLOGICAL: Denies any bleeding or petechiae. GENITOURINARY: Denies any burning micturition, frequency, or urgency. MUSCULOSKELETAL/RHEUMATOLOGICAL: Denies any joint pain, swelling, or any muscle pain. ENDOCRINE: Denies any polyuria or polydipsia. The rest of the 14-point review of systems is negative. Past Medical History Past Medical History: Asthma, COPD, Diabetes Mellitus, Hypertension Additional Past Medical History / Comment(s): neuoropathy History of Any Multi-Drug Resistant Organisms: None Reported Past Surgical History: Adenoidectomy, Cholecystectomy, Tonsillectomy Additional Past Surgical History / Comment(s): D&C, carpal tunnel surgery left , LT ARM SX FOR "PINCHED NERVE", LT THUMB TRIGGER FINGER, rae neuroma removed left foot, heart cath 2015 , right ankle fx 01/2018 no surgery Past Anesthesia/Blood Transfusion Reactions: Previous Problems w/ Anesthesia, Motion Sickness Additional Past Anesthesia/Blood Transfusion Reaction / Comment(s): difficulty waking from anesthesia Past Psychological History: Anxiety, Depression, Panic Disorder Additional Psychological History / Comment(s): niece is her pet care worker. Smoking Status: Never smoker Past Alcohol Use History: Occasional Additional Past Alcohol Use History / Comment(s): Patient started smoking at age 13 one half pack per day and quit around 1991 Past Drug Use History: Marijuana Additional Drug Use History / Comment(s): . - Past Family History Father Family Medical History: Cancer Additional Family Medical History / Comment(s): skin Mother Family Medical History: Diabetes Mellitus, Hypertension, Osteoarthritis (OA) Additional Family Medical History / Comment(s): MURMUR Sister(s) Family Medical History: Cancer Additional Family Medical History / Comment(s): ovarian Medications and Allergies Home Medications Medication Instructions Recorded Confirmed Type Montelukast [Singulair] 10 mg PO HS 04/16/17 01/31/19 History Losartan Potassium [Cozaar] 25 mg PO DAILY 06/24/17 01/31/19 History Pioglitazone [Actos] 30 mg PO DAILY 09/15/17 01/31/19 History metFORMIN HCL [Glucophage] 1,000 mg PO AC-SUPPER 01/05/18 01/31/19 History metFORMIN HCL [Glucophage] 500 mg PO AC-BID 01/05/18 01/31/19 History Atorvastatin [Lipitor] 20 mg PO HS 04/07/18 01/31/19 History Albuterol Inhaler [Ventolin Hfa 2 puff INHALATION RT-Q6H PRN 07/13/18 01/31/19 History Inhaler] Beclomethasone Dipropionate [Qvar 1 puff INHALATION RT-BID 07/13/18 01/31/19 History 80 mcg] Ferrous Sulfate [Feosol] 325 mg PO BID 09/14/18 01/31/19 History Folic Acid 1 mg PO SUMOTUWETHSA 12/27/18 01/31/19 History Liraglutide [Victoza 3-Bandar] 1.2 mg SQ DAILY 12/27/18 01/31/19 History Methotrexate Sodium [Methotrexate] 12.5 mg PO FR 12/27/18 01/31/19 History Omeprazole 20 mg PO DAILY 12/27/18 01/31/19 History PARoxetine HCL [Paxil] 40 mg PO DAILY 12/27/18 01/31/19 History Aspirin [[place] Aspirin EC] 81 mg PO DAILY 01/25/19 01/31/19 History Ertugliflozin Pidolate [Steglatro] 15 mg PO DAILY 01/25/19 01/31/19 History Metoprolol Tartrate 25 mg PO BID #60 tab 02/01/19 Rx Allergies Allergy/AdvReac Type Severity Reaction Status Date / Time adhesive Allergy red skin Verified 01/31/19 22:44 Iodinated Contrast- Oral and Allergy Itching Verified 01/31/19 22:44 IV Dye [Iodinated Contrast Media - IV Dye] metoprolol Allergy Chest Pain Verified 01/31/19 22:44 prednisone Allergy Rapid Verified 01/31/19 22:44 Heart Rate verapamil Allergy Anaphylaxis Verified 01/31/19 22:44 celecoxib [From Celebrex] AdvReac CAUSES GI Verified 01/31/19 22:44 BLEEDING cephalexin monohydrate AdvReac Vomiting Verified 01/31/19 22:44 [From Keflex] diphenhydramine AdvReac arm burned Verified 01/31/19 22:44 [From Benadryl] when given IV Penicillins AdvReac Nausea & Verified 01/31/19 22:44 Vomiting tramadol AdvReac Nausea & Verified 01/31/19 22:44 Vomiting Physical Exam Vitals: Vital Signs Temp Pulse Pulse Resp BP BP Pulse Ox 02/01/19 08:00 98.3 F 117 H 18 133/81 91 L 02/01/19 06:09 97.2 F L 76 16 120/70 96 02/01/19 04:00 98 F 112 H 16 122/79 96 02/01/19 03:09 98 F 74 16 147/90 97 02/01/19 02:30 19 02/01/19 02:00 98.7 F 114 H 23 125/61 97 02/01/19 01:37 97.6 F 118 H 18 143/93 97 02/01/19 01:00 111 H 22 113/69 95 02/01/19 00:00 110 H 27 H 131/87 95 01/31/19 23:11 125 H 22 133/82 90 L 01/31/19 22:29 97.9 F 124 H 20 132/82 98 Intake and Output 01/31/19 02/01/19 02/01/19 22:59 06:59 14:59 Intake Total 50 Balance 50 Intake: Oral 50 Other: # Voids 2 4 Weight 115.212 kg 114 kg PHYSICAL EXAMINATION: GENERAL: The patient is alert and oriented x3, not in any acute distress. O bese. HEENT: Pupils are round and equally reacting to light. EOMI. No scleral icterus. No conjunctival pallor. Normocephalic, atraumatic. No pharyngeal erythema. No thyromegaly. CARDIOVASCULAR: S1 and S2 present. No murmurs, rubs, or gallops. PULMONARY: Chest is clear to auscultation, no wheezing or crackles. ABDOMEN: Soft, nontender, nondistended, normoactive bowel sounds. No palpable organomegaly. MUSCULOSKELETAL: No joint swelling or deformity. EXTREMITIES: No cyanosis, clubbing, or pedal edema. NEUROLOGICAL: Gross neurological examination did not reveal any focal deficits. SKIN: No rashes. Results CBC & Chem 7: 01/31/19 22:54 01/31/19 22:54 Labs: Abnormal Lab Results - Last 24 Hours (Table) 01/31/19 01/31/19 02/01/19 Range/Units 22:54 22:54 11:51 RDW 18.7 H (11.5-15.5) % Neutrophils # 7.8 H (1.3-7.7) k/uL BUN 23 H (7-17) mg/dL Glucose 133 H (74-99) mg/dL POC Glucose (mg/dL) 196 H (75-99) mg/dL Thrombosis Risk Factor Assmnt - Choose All That Apply Any of the Below Risk Factors Present?: Yes Each Factor Represents 1 point: Age 41-60 years, Obesity (BMI >25) Other Risk Factors: No Other congenital or acquired thrombophilia - If yes, enter type in comment: No Thrombosis Risk Factor Assessment Total Risk Factor Score: 2 Thrombosis Risk Factor Assessment Level: Low Risk Assessment and Plan Plan: -Chest pain atypical nature although patient underwent stress test which was negative. Ruled out acute coronary syndromes -Tingling and numbness of the feet left side of the face and the left arm left arm tingling and numbness is probably secondary to psych cervical degenerative disc disease and the face local and causes my suspicion for several vascular accident is low. Echocardiogram did not show an intraventricular thrombus patient will be evaluated by neurology and they cleared her patient will be discharged today next and happened type 2 diabetes mellitus -Hyperlipidemia: LDL is not available at this time. This can be done as an outpatient and treated appropriately with statins if needed at that time - obesity -Thyroid nodules which need to be evaluated as an outpatient -Hypertension patient is mildly tachycardic, obtaining TSH PE is negative patient will be discharged on metoprolol
[2019-02-01 15:52] LABS: T4, Free (Free Thyroxine) 1.35 ng/dL (0.78-2.19)
--- NOTE | 2019-02-01 16:13 | P.CNNES ---
History of Present Illness Consult date: 02/01/19 Reason for Consult: TIA History of Present Illness: Patient is a 48-year-old female who developed numbness of left side of the face, head and left side of the neck two days ago. Patient was also having left sided chest pain, and pain in left side of the neck. There is no numbness of the arm or leg. Sometimes the numbness extends to the right side of the face also. Denies any focal symptoms like slurred speech facial droop, numbness involving the extremities or any focal weakness. Patient does have chronic balance issues and had a tendency to falls the. Patient also has some diplopia which is chronic issue related to her astigmatism. Patient underwent computed tomography scan of the head which is normal. On my review, there are also no acute findings. CT of the chest was negative. Patient had a 2-D echo, which revealed ejection fraction 55-60%. Aortic valve was bicuspid. Mild aortic stenosis. EKG showed sinus tachycardia. Patient had a normal stress test. Patient underwent blood testing which CBC is normal PT/PTT normal. Chem-7 is normal. Liver functions normal. TSH low at 0.408 (0.465-4.68). Free T4 normal. Her last hemoglobin A1c is 6.6 on 07/13/2018. Her cholesterol is 165, LDL 94, HDL 35. Patient's blood test shows normal WBC, hemoglobin 13.0 and platelets are 248. Patient says that she had history of a TIA in 2014, which affected with numbness of right side of her face. She was supposed to take aspirin, which she stopped taking it and has not been taking it for last couple years. She is not on any antiplatelet medication. Patient states that she also loses blood and her bonding machine setter gives her iron infusion, and sometimes transfusion. I reviewed records of her TIA from 06/26/2015. At that time she had developed floaters in both eyes, dizziness, disequilibrium, numbness of the lips. She had a carotid Doppler which showed no stenosis. Patient was recommended aspirin 325 mg daily an outpatient MRI. Patient underwent MRI of the brain with and without contrast on 06/29/2015, which revealed increased signal from the mucosa of the nasal turbinates suggestive of an ALLERGIC type rhinitis no fluid levels within the paranasal sinuses. Review of Systems As per HPI. Patient has frequent falls. Numbness of left side of the face. Denies any shortness of breath. Past Medical History Past Medical History: Asthma, COPD, Diabetes Mellitus, Hypertension Additional Past Medical History / Comment(s): neuoropathy History of Any Multi-Drug Resistant Organisms: None Reported Past Surgical History: Adenoidectomy, Cholecystectomy, Tonsillectomy Additional Past Surgical History / Comment(s): D&C, carpal tunnel surgery left , LT ARM SX FOR "PINCHED NERVE", LT THUMB TRIGGER FINGER, rae neuroma removed left foot, heart cath 2015 , right ankle fx 01/2018 no surgery Past Anesthesia/Blood Transfusion Reactions: Previous Problems w/ Anesthesia, Motion Sickness Additional Past Anesthesia/Blood Transfusion Reaction / Comment(s): difficulty waking from anesthesia Past Psychological History: Anxiety, Depression, Panic Disorder Additional Psychological History / Comment(s): niece is her respiratory care practitioner. Smoking Status: Never smoker Past Alcohol Use History: Occasional Additional Past Alcohol Use History / Comment(s): Patient started smoking at age 13 one half pack per day and quit around 1991 Past Drug Use History: Marijuana Additional Drug Use History / Comment(s): . - Past Family History Father Family Medical History: Cancer Additional Family Medical History / Comment(s): skin Mother Family Medical History: Diabetes Mellitus, Hypertension, Osteoarthritis (OA) Additional Family Medical History / Comment(s): MURMUR Sister(s) Family Medical History: Cancer Additional Family Medical History / Comment(s): ovarian Medications and Allergies Home Medications Medication Instructions Recorded Confirmed Type Montelukast [Singulair] 10 mg PO HS 04/16/17 01/31/19 History Losartan Potassium [Cozaar] 25 mg PO DAILY 06/24/17 01/31/19 History Pioglitazone [Actos] 30 mg PO DAILY 09/15/17 01/31/19 History metFORMIN HCL [Glucophage] 1,000 mg PO AC-SUPPER 01/05/18 01/31/19 History metFORMIN HCL [Glucophage] 500 mg PO AC-BID 01/05/18 01/31/19 History Atorvastatin [Lipitor] 20 mg PO HS 04/07/18 01/31/19 History Albuterol Inhaler [Ventolin Hfa 2 puff INHALATION RT-Q6H PRN 07/13/18 01/31/19 History Inhaler] Beclomethasone Dipropionate [Qvar 1 puff INHALATION RT-BID 07/13/18 01/31/19 History 80 mcg] Ferrous Sulfate [Feosol] 325 mg PO BID 09/14/18 01/31/19 History Folic Acid 1 mg PO SUMOTUWETHSA 12/27/18 01/31/19 History Liraglutide [Victoza 3-Bandar] 1.2 mg SQ DAILY 12/27/18 01/31/19 History Methotrexate Sodium [Methotrexate] 12.5 mg PO FR 12/27/18 01/31/19 History Omeprazole 20 mg PO DAILY 12/27/18 01/31/19 History PARoxetine HCL [Paxil] 40 mg PO DAILY 12/27/18 01/31/19 History Aspirin [[place] Aspirin EC] 81 mg PO DAILY 01/25/19 01/31/19 History Ertugliflozin Pidolate [Steglatro] 15 mg PO DAILY 01/25/19 01/31/19 History Metoprolol Tartrate 25 mg PO BID #60 tab 02/01/19 Rx Allergies Allergy/AdvReac Type Severity Reaction Status Date / Time adhesive Allergy red skin Verified 01/31/19 22:44 Iodinated Contrast- Oral and Allergy Itching Verified 01/31/19 22:44 IV Dye [Iodinated Contrast Media - IV Dye] metoprolol Allergy Chest Pain Verified 01/31/19 22:44 prednisone Allergy Rapid Verified 01/31/19 22:44 Heart Rate verapamil Allergy Anaphylaxis Verified 01/31/19 22:44 celecoxib [From Celebrex] AdvReac CAUSES GI Verified 01/31/19 22:44 BLEEDING cephalexin monohydrate AdvReac Vomiting Verified 01/31/19 22:44 [From Keflex] diphenhydramine AdvReac arm burned Verified 01/31/19 22:44 [From Benadryl] when given IV Penicillins AdvReac Nausea & Verified 01/31/19 22:44 Vomiting tramadol AdvReac Nausea & Verified 01/31/19 22:44 Vomiting Physical Examination - Vital Signs Vital Signs: Vital Signs Temp Pulse Pulse Resp BP BP Pulse Ox 02/01/19 08:00 98.3 F 117 H 18 133/81 91 L 02/01/19 06:09 97.2 F L 76 16 120/70 96 02/01/19 04:00 98 F 112 H 16 122/79 96 02/01/19 03:09 98 F 74 16 147/90 97 02/01/19 02:30 19 02/01/19 02:00 98.7 F 114 H 23 125/61 97 02/01/19 01:37 97.6 F 118 H 18 143/93 97 02/01/19 01:00 111 H 22 113/69 95 02/01/19 00:00 110 H 27 H 131/87 95 01/31/19 23:11 125 H 22 133/82 90 L 01/31/19 22:29 97.9 F 124 H 20 132/82 98 Intake and Output 02/01/19 02/01/19 02/01/19 06:59 14:59 22:59 Intake Total 50 120 Balance 50 120 Intake: Oral 50 120 Other: # Voids 2 4 Weight 114 kg On examination patient is an middle aged female, moderately obese, in no distress. She is alert and awake fully oriented and pleasant person. Speech and language functions are normal. On cranial nerve examination pupils are round and reactive to light, visual hinds are full on confrontation, extraocular muscles are intact. Face is symmetric and tongue protrudes the midline. On muscle strength testing there is no drift and the strength is normal in arms and legs distally and proximally. Reflexes are diminished and plantars downgoing sensory touch is equal no ataxia for [id number], tone and bulk of muscles normal. Results - Laboratory Findings CBC and BMP: 01/31/19 22:54 01/31/19 22:54 Abnormal Lab Findings: Abnormal Labs 01/31/19 01/31/19 02/01/19 22:54 22:54 11:51 RDW 18.7 H Neutrophils # 7.8 H BUN 23 H Glucose 133 H POC Glucose (mg/dL) 196 H TSH 02/01/19 12:26 RDW Neutrophils # BUN Glucose POC Glucose (mg/dL) TSH 0.408 L Assessment and Plan Assessment: * Left facial numbness, unclear etiology. Rule out TIA, versus some other neuropathic process. Neurological examination otherwise normal. Does have history of diabetes with diabetic neuropathy. * Obesity * Mild hyperthyroidism with low TSH. * Hypertension * Dyslipidemia * Diabetes, well controlled. * Gait disorder, and tenderness to fall, possibly from neuropathy. Plan: Patient currently was not taking any antiplatelet medication. I agree with starting her on aspirin 325 mg daily. If not able to tolerate, then can decrease to 162 mg. We will check B12 level and folate, due to her balance issues and paresthesias. We will also check folate. Patient also has low TSH, suggestive of overactive thyroid. This could also be a potential cause of numbness. Her diabetes and cholesterol are well controlled. No other neurological workup indicated. Clear for discharge, if B12 comes back normal, or patient can be followed up as an outpatient. Patient does have a neurologist Dr. Gomez, and was recommended to follow with him.
[2019-02-01 16:46] VITALS: BP 143/90; PULSE 104; TEMP 98
[2019-02-01 17:07] LABS: Glucose,Whole Blood 305 mg/dL (75-99)
[2019-02-01] MEDS ORDERED: metFORMIN 500 MG TAB PO SCH ×2 (17:30)
[2019-02-01] MEDS ORDERED: FLUTICASONE 110 MCG INHALER INHALATION SCH (20:00)
[2019-02-01] MEDS ORDERED: ATORVASTATIN 20 MG TAB PO SCH (21:00)
[2019-02-01] MEDS ORDERED: MONTELUKAST 10 MG TAB PO SCH (21:00)
[2019-02-01] MEDS ORDERED: ASPIRIN 81 MG PO SCH (21:00)
[2019-02-01] MEDS ORDERED: FERROUS SULFATE 325 MG TAB PO SCH (21:00)
[2019-02-02 00:33] LABS: Folate, Serum 20.3 ng/mL
[2019-02-02] MEDS ORDERED: PANTOPRAZOLE 40 MG TABLET PO SCH (07:30)
[2019-02-02] MEDS ORDERED: Liraglutide [Victoza 3-Pak] SQ SCH (09:00)
[2019-02-02] MEDS ORDERED: STEGLATRO 15 MG PO SCH (09:00)
[2019-02-02] MEDS ORDERED: PIOGLITAZONE 30 MG TAB PO SCH (09:00)
[2019-02-02] MEDS ORDERED: Ertugliflozin Pidolate [Steglatro] PO SCH (09:00)
[2019-02-02] MEDS ORDERED: LOSARTAN 25 MG TAB PO SCH (09:00)
[2019-02-02] MEDS ORDERED: PARoxetine 20 MG TAB PO SCH (09:00)
[2019-02-02] MEDS ORDERED: ASPIRIN 325 MG TAB PO SCH (09:00)
[2019-02-02 20:05] LABS: Hemoglobin A1C 7.5 % (4.0-6.0)
[2019-02-04] MEDS ORDERED: METHOTREXATE SODIUM 2.5 MG TAB PO SCH (09:00)
== END 2019-02-01 19:46 | disposition home or self-care (01) ==
LOC: EC 22:23 → 3SCARD 02-01 01:09
PROVIDERS: ADMIT Hospitalist; ATTEND Hospitalist
DX: R07.89 Other chest pain (principal); R07.81 Pleurodynia; R20.2 Paresthesia of skin; R20.0 Anesthesia of skin; M54.2 Cervicalgia; R68.84 Jaw pain; R00.0 Tachycardia, unspecified; R51 Headache; G89.4 Chronic pain syndrome; E78.5 Hyperlipidemia, unspecified; I10 Essential (primary) hypertension; E05.20 Thyrotoxicosis with toxic multinodular goiter without thyrotoxic crisis or storm; J44.9 Chronic obstructive pulmonary disease, unspecified; J45.909 Unspecified asthma, uncomplicated; E11.40 Type 2 diabetes mellitus with diabetic neuropathy, unspecified; R26.9 Unspecified abnormalities of gait and mobility; F41.0 Panic disorder [episodic paroxysmal anxiety]; F32.9 Major depressive disorder, single episode, unspecified; E66.01 Morbid (severe) obesity due to excess calories; Z68.41 Body mass index [BMI] 40.0-44.9, adult; H52.209 Unspecified astigmatism, unspecified eye; H53.2 Diplopia; T39.016A Underdosing of aspirin, initial encounter; Z90.49 Acquired absence of other specified parts of digestive tract; Z87.891 Personal history of nicotine dependence; Z86.73 Personal history of transient ischemic attack (TIA), and cerebral infarction without residual deficits; R29.6 Repeated falls; R29.700 NIHSS score 0; Z79.899 Other long term (current) drug therapy; Z79.84 Long term (current) use of oral hypoglycemic drugs; Z79.82 Long term (current) use of aspirin; Z88.1 Allergy status to other antibiotic agents; Z91.041 Radiographic dye allergy status; Z88.5 Allergy status to narcotic agent; Z88.0 Allergy status to penicillin; Z88.8 Allergy status to other drugs, medicaments and biological substances; Z91.048 Other nonmedicinal substance allergy status; Z82.49 Family history of ischemic heart disease and other diseases of the circulatory system; Z80.41 Family history of malignant neoplasm of ovary; Z82.61 Family history of arthritis; Z80.8 Family history of malignant neoplasm of other organs or systems
CPT/HCPCS: 96376; 96375 ×3; 96361 ×2; 96374; 99285; 36415; 93005; 97162; 97166; 92610; 92523; 85379; 84439; 80053; 84443; 82607; 82746; 84484 ×2; 85025; 85610; 85730; 83036; 70450; 71275; G0378; C8929; C8930; J1250; J2270; J2930; J1885; Q9950; Q9967; 93306; 93351

== ENCOUNTER → 2019-02-11 | Outpatient (CLI) | payer OTHER ==
--- NOTE | 2019-02-11 10:31 | FL ---
EXAMINATION TYPE: FL barium swallow DATE OF EXAM: 02/11/2019 CLINICAL HISTORY: Dysphagia with both solids and liquids TECHNIQUE: A double contrast esophagram is performed utilizing air and barium. A total of 2 minutes and 11 seconds of fluoroscopic time was utilized during procedure. 55 fluoroscopic images were saved . COMPARISON: None FINDINGS: The esophagus shows abnormal motility and delayed emptying into the stomach with beaking of the distal esophagus at the gastroesophageal junction with the ventral passage of contrast through a mildly narrowed gastroesophageal junction. This results in abnormal tertiary contractions in the gr avity dependent and independent portion of the exam. This is more pronounced in the supine position. No evidence of hiatal hernia. No significant gastroesophageal reflux was seen during real time perfor danyelle of this study. However there is moderate to severe intraesophageal reflux as result of the abov e findings. IMPRESSION: 1. Beaking of the distal esophagus and narrowing of the gastroesophageal junction. Endoscopy with man ometry is recommended to evaluate for nonobstructive stricture and/or achalasia given the beaked appe arance. 2. Esophageal dysmotility and moderate to severe intraesophageal reflux as a result of the above find ing.
== END | disposition home or self-care (01) ==
LOC: RADUSWWP 09:35
PROVIDERS: ATTEND Family Medicine
DX: K22.2 Esophageal obstruction (principal); K21.9 Gastro-esophageal reflux disease without esophagitis; K22.4 Dyskinesia of esophagus
CPT/HCPCS: 74220

== ENCOUNTER → 2020-03-23 | Outpatient (CLI) | payer OTHER ==
--- NOTE | 2020-03-23 13:37 | US ---
EXAMINATION TYPE: US venous doppler duplex LE BI DATE OF EXAM: 03/23/2020 1:15 PM COMPARISON: US CLINICAL HISTORY: R60.9 EDEMA. Pain left lateral lower extremity at palpable and left ankle. Left ank le noted swelling per patient Patient stated has MSK order for left ankle area for soft tissue mass/l ipoma, but done at time of LEV study to assess for varicose vein. SIDE PERFORMED: Bilateral TECHNIQUE: The lower extremity deep venous system is examined utilizing real time linear array sonog dain with graded compression, doppler sonography and color-flow sonography. VESSELS IMAGED: Common Femoral Vein Deep Femoral Vein Greater Saphenous Vein * Femoral Vein Popliteal Vein Small Saphenous Vein * Proximal Calf Veins (* superficial vessels) Right Leg: Negative for DVT Left Leg: Negative for DVT. No superficial vein thrombosis is seen over area of palpable LLE. At patient's area of palpable lateral LLE a disruption in tissue planes is noted as heterogeneous ova l area = 1.4 x 0.4 x 0.6cm. IMPRESSION: 1. Bilateral lower extremity ultrasound negative for deep venous thrombosis. 2. Abnormal soft tissue at the level of the palpable abnormality of uncertain etiology.
== END | disposition home or self-care (01) ==
LOC: RADUSWWP 12:26
PROVIDERS: ATTEND Podiatrist Foot & Ankle Surgery
DX: M79.89 Other specified soft tissue disorders (principal)
CPT/HCPCS: 93970

== ENCOUNTER → 2020-07-27 | Outpatient (CLI) | payer OTHER ==
--- NOTE | 2020-07-28 08:32 | US ---
EXAMINATION TYPE: US venous doppler duplex LE LT DATE OF EXAM: 07/27/2020 4:56 PM COMPARISON: NONE CLINICAL HISTORY: M79.9 soft tissue mass, I82.90. left leg pain, patient on Plavix SIDE PERFORMED: left TECHNIQUE: The lower extremity deep venous system is examined utilizing real time linear array sonog dain with graded compression, doppler sonography and color-flow sonography. VESSELS IMAGED: Common Femoral Vein Deep Femoral Vein Greater Saphenous Vein * Femoral Vein Popliteal Vein Small Saphenous Vein * Proximal Calf Veins (* superficial vessels) Left Leg: technical limitations due to patient's body habitus, no evidence of DVT as visualized. sca nned within area of concern, left lower leg, soft tissue edema noted IMPRESSION: No definite DVT visualized.
== END | disposition home or self-care (01) ==
LOC: RADUSWWP 16:31
PROVIDERS: ATTEND Podiatrist Foot & Ankle Surgery
DX: M79.9 Soft tissue disorder, unspecified (principal); I82.90 Acute embolism and thrombosis of unspecified vein

== ENCOUNTER 2022-05-21 05:56 | Day surgery (SDC) | payer OTHER ==
[2022-05-20 12:08] VITALS: BMI 46.0
[~2022-05-21 05:56] MED LIST changes: -LACTATED RINGERS 1,000 ML IV SCH; -LIDOCAINE 1% 20 ML VIAL (10MG/ML) FOR IV START INTRADERMA PRN; -MIDAZOLAM (PF) 2 MG/2 ML VIAL IV PRN; +TETRACAINE 0.5% OPHTH (PF) DROPS 4 ML BTL OP PRN
[2022-05-21] MEDS ORDERED: CYCLOPENTOLATE 1% OPHTH SOLN 2 ML BTL OP PRN (06:00)
[2022-05-21] MEDS ORDERED: MOXIFLOXACIN HCL 0.5% DROPS 3 ML BTL OP PRN (06:00)
[2022-05-21] MEDS ORDERED: PHENYLEPHRINE 2.5% OPHTH DRP 2ML OP PRN (06:00)
[2022-05-21] MEDS ORDERED: TIMOLOL 0.5% OPHTH DROPS 5 ML BTL OP PRN (06:00)
[2022-05-21] MEDS ORDERED: LACTATED RINGERS 1,000 ML IV SCH (06:01)
[2022-05-21 06:23] VITALS: TEMP 97.1
[2022-05-21] MEDS ORDERED: LIDOCAINE 1% (10MG/ML) FOR IV START INTRADERMA ONE (06:27)
[2022-05-21 06:43] LABS: Glucose,Whole Blood 162 mg/dL (70-110)
[2022-05-21] MEDS ORDERED: fentaNYL (PF) 50 MCG/ML 2 ML AMP ONE (06:57)
[2022-05-21] MEDS ORDERED: MIDAZOLAM 2 MG/2 ML VIAL ONE (06:57)
[2022-05-21] MEDS ORDERED: EPINEPHrine (PF) 0.3 ML in BALANCED SALT IRRIG SOLN COMB2 500 ML IRRIGATION ONE (07:19)
[2022-05-21] MEDS ORDERED: HYALURONATE SODIUM INTRAOCULAR 1 EACH SYRINGE (12MG/ML) INTRAOCULA ONE (07:20)
[2022-05-21] MEDS ORDERED: LIDOCAINE 1% (PF) 10MG/ML VIAL MISCELLANE ONE (07:21)
[2022-05-21] MEDS ORDERED: BALANCED SALT IRRIG SOLN COMB2 15 ML IRRIG.SOLN INTRAOCULA ONE (07:21)
--- NOTE | 2022-05-21 07:30 | P.OP ---
Date of Procedure: 05/21/22 Preoperative Diagnosis: NS & PSC Postoperative Diagnosis: same Procedure(s) Performed: PIOL< OD Implants: [id number] 20.50 Anesthesia: MAC Surgeon: Yahir Chavez Pathology: none sent Condition: stable Disposition: same day Indications for Procedure: blurry vision Operative Findings: no complications
[2022-05-21 07:37] VITALS: RESP 15
[2022-05-21 07:51] VITALS: BP 156/104; PULSE 92
[2022-05-21 07:56] LABS: Glucose,Whole Blood 146 mg/dL (70-110)
--- NOTE | 2022-05-22 02:14 | OP ---
OPERATIVE REPORT PROCEDURE: Phacoemulsification of cataract and intraocular lens implant of the right eye. PREOPERATIVE DIAGNOSES: Nuclear sclerosis, posterior subcapsular cataract. NARRATIVE: After obtaining the appropriate consent, the patient was brought to the operating room. There the patient was placed under cardiac monitoring, prepped and draped in the usual sterile manner. The patient was approached from the right temporal side. The mm Carin ring inked in gentian tomás was placed centrally on the cornea. At the 11 o'clock position, a 1.1 mm keratome was used to create a paracentesis port. Through this opening, 1% Xylocaine MPF 50/50 mix with balanced salt solution was injected into the anterior chamber. This was followed by stabilization of the anterior chamber with Amvisc viscoelastic. At the 9 o'clock position, a 2.75 mm timbo keratome was used to create a self-scaling corneal flap incision in a Langerman fashion. Through this opening, a cystotome was introduced to begin a continuous tear capsulorrhexis which was completed using the Utrata forceps. Care was taken to ensure that the capsulorrhexis was at least the size of the cielo on the anterior cornea. Hydrodissection and hydrodelineation of the lens were accomplished with balanced salt solution. Phacoemulsification of the lens utilizing phaco chop was accomplished in 5.19 seconds at 6% power. Addition Xylocaine MPF was instilled into the anterior chamber. This was followed by removal of the remaining cortex under irrigation and aspiration along with careful polishing of the posterior capsule in a capsule vacuum mode. Additional Amvisc viscoelastic was then used to stabilize the capsular bag, and the [employer]ch [employer] MX60E 20.5 diopters intraocular lens was injected into the capsular bag without difficulty. The lens was rotated 270 degrees so that the haptics resided at the 6 and 12 o'clock positions, and all remaining viscoelastic was then removed from within the capsular bag and around the anterior chamber. The eye was brought to normal intraocular pressure through the paracentesis port along with slight hydration of the incision sites. Watertight integrity was confirmed using a fluorescein strip. The patient then received 2 drops of 0.5% timolol followed by 2 drops of Vigamox and 2 drops of 1% atropine. The patient was then lightly patched and shielded in the usual manner. There was no complications from the procedure. The patient tolerated the procedure well and was returned to outpatient recovery in good condition. MMARIANE / RILEYN: [id number] /
== END 2022-05-21 08:29 | disposition home or self-care (01) ==
LOC: OR 05:56
PROVIDERS: ATTEND Ophthalmology
DX: H25.11 Age-related nuclear cataract, right eye (principal); H53.8 Other visual disturbances; Z98.41 Cataract extraction status, right eye; I10 Essential (primary) hypertension; E78.5 Hyperlipidemia, unspecified; J45.909 Unspecified asthma, uncomplicated; J44.9 Chronic obstructive pulmonary disease, unspecified; F41.9 Anxiety disorder, unspecified; F32.9 Major depressive disorder, single episode, unspecified; E11.40 Type 2 diabetes mellitus with diabetic neuropathy, unspecified; I63.9 Cerebral infarction, unspecified; K21.9 Gastro-esophageal reflux disease without esophagitis; R00.0 Tachycardia, unspecified; Z79.4 Long term (current) use of insulin; Z79.899 Other long term (current) drug therapy; Z88.8 Allergy status to other drugs, medicaments and biological substances; Z91.041 Radiographic dye allergy status; Z88.0 Allergy status to penicillin; Z90.89 Acquired absence of other organs; Z98.890 Other specified postprocedural states; Z90.49 Acquired absence of other specified parts of digestive tract; Z95.811 Presence of heart assist device; Z87.39 Personal history of other diseases of the musculoskeletal system and connective tissue; Z80.9 Family history of malignant neoplasm, unspecified; Z83.3 Family history of diabetes mellitus; Z82.49 Family history of ischemic heart disease and other diseases of the circulatory system; Z82.3 Family history of stroke; Z83.49 Family history of other endocrine, nutritional and metabolic diseases
CPT/HCPCS: 66984; C1780; J2250; J0171; J3010; J2001

== ENCOUNTER 2022-06-27 14:58 | Emergency (ER) | payer OTHER ==
[2022-06-27 15:32] VITALS: TEMP 98.3
--- NOTE | 2022-06-27 16:26 | US ---
EXAMINATION TYPE: US venous doppler duplex LE LT DATE OF EXAM: 06/27/2022 4:02 PM COMPARISON: NONE CLINICAL HISTORY: 52-year-old female swelling pain recent fracture to foot. Pain SIDE PERFORMED: Left TECHNIQUE: The lower extremity deep venous system is examined utilizing real time linear array sonog dain with graded compression, doppler sonography and color-flow sonography. FINDINGS: VESSELS IMAGED: Common Femoral Vein Deep Femoral Vein Greater Saphenous Vein * Femoral Vein Popliteal Vein Small Saphenous Vein * (* superficial vessels) Left Leg: Negative for DVT IMPRESSION: No evidence for DVT within the left lower extremity imaged from the groin to the knee.
--- NOTE | 2022-06-27 16:51 | ED ---
Extremity Problem HPI - General Chief complaint: Extremity Problem,Nontraumatic Stated complaint: lower left leg pain/poss clot Time Seen by Provider: 06/27/22 16:40 Source: patient, RN notes reviewed Mode of arrival: wheelchair Limitations: no limitations - History of Present Illness Initial comments: This is a pleasant 52-year-old female who fractured her left foot a few weeks ago and has been wearing a walking boot. Patient saw her coding consultant today and was sent here for venous Doppler as she has been having some pain in her calf area. Oxycodone/acetaminophen for pain control at home. Patient denying any shortness of breath or chest pain. No headache, no fever or chills, no changes in vision or hearing, no sore throat or difficulty with speech, no neck pain, no chest pain or shortness of breath, no abdominal pain, no nausea or vomiting, no changes in urination or bowel movements, no numbness or tingling, no skin rashes or lesions. Past medical, surgical, social, and family history reviewed. MD Complaint: extremity pain - Related Data Home Medications Medication Instructions Recorded Confirmed Montelukast [Singulair] 10 mg PO HS 04/16/17 05/21/22 Losartan Potassium [Cozaar] 25 mg PO DAILY 06/24/17 05/21/22 Pioglitazone [Actos] 15 mg PO DAILY 09/15/17 05/21/22 metFORMIN HCL [Glucophage] 1,000 mg PO AC-BID 01/05/18 05/21/22 Atorvastatin [Lipitor] 40 mg PO HS 04/07/18 05/21/22 PARoxetine HCL [Paxil] 40 mg PO DAILY 12/27/18 05/21/22 Aspirin [[place] Aspirin EC] 81 mg PO DAILY 01/25/19 05/21/22 Cetirizine HCl 10 mg PO HS 04/30/22 05/21/22 Clopidogrel [Plavix] 75 mg PO DAILY 04/30/22 05/21/22 Dulaglutide [Trulicity] 0.75 mg SQ MO 04/30/22 05/21/22 HYDROcodone/APAP 7.5-325MG [Evergreen 7.5 - 325 mg PO TID PRN 04/30/22 05/21/22 7.5-325] Insulin Aspart [NovoLOG Flexpen] 10 units SQ AC-TID 04/30/22 05/21/22 Insulin Glargine [Lantus Vial] 70 unit SQ HS 04/30/22 05/21/22 Levothyroxine Sodium [Synthroid] 200 mcg PO DAILY 04/30/22 05/21/22 Metoprolol Tartrate 50 mg PO BID 04/30/22 05/21/22 Ondansetron [Zofran] 4 mg PO Q8HR PRN 04/30/22 05/21/22 Pregabalin [Lyrica] 75 mg PO BID 04/30/22 05/21/22 cycloSPORINE 0.05% OPHTH SOLN 1 applicator BOTH EYES Q12H 04/30/22 05/21/22 [Restasis] Previous Rx's Medication Instructions Recorded Cyclobenzaprine [Flexeril] 10 mg PO TID PRN #20 tab 06/27/22 Allergies Allergy/AdvReac Type Severity Reaction Status Date / Time adhesive Allergy red skin Verified 05/21/22 06:28 Iodinated Contrast Media Allergy Itching Verified 05/21/22 06:28 [Iodinated Contrast Media - IV Dye] prednisone Allergy Rapid Verified 05/21/22 06:28 Heart Rate verapamil Allergy Anaphylaxis Verified 05/21/22 06:28 celecoxib [From Celebrex] AdvReac CAUSES GI Verified 05/21/22 06:28 BLEEDING cephalexin monohydrate AdvReac Vomiting Verified 05/21/22 06:28 [From Keflex] diphenhydramine AdvReac arm burned Verified 05/21/22 06:28 [From Benadryl] when given IV Penicillins AdvReac Nausea & Verified 05/21/22 06:28 Vomiting tramadol AdvReac Nausea & Verified 05/21/22 06:28 Vomiting Review of Systems ROS Statement: Those systems with pertinent positive or pertinent negative responses have been documented in the HPI. ROS Other: All systems not noted in ROS Statement are negative. Past Medical History Past Medical History: Asthma, COPD, Diabetes Mellitus, Hypertension Additional Past Medical History / Comment(s): neuoropathy, RT CATARACT History of Any Multi-Drug Resistant Organisms: None Reported Past Surgical History: Adenoidectomy, Cholecystectomy, Tonsillectomy Additional Past Surgical History / Comment(s): D&C, carpal tunnel surgery left , LT ARM SX FOR "PINCHED NERVE", LT THUMB TRIGGER FINGER, rae neuroma removed left foot, heart cath 2016 , right ankle fx 01/2018 no surgery , LT CATARACT REMOVED WITH LENS IMPLANT Past Anesthesia/Blood Transfusion Reactions: Previous Problems w/ Anesthesia, Motion Sickness Additional Past Anesthesia/Blood Transfusion Reaction / Comment(s): difficulty waking from anesthesia Past Psychological History: Anxiety, Depression, Panic Disorder Smoking Status: Former smoker - Past Family History Father Family Medical History: Cancer Additional Family Medical History / Comment(s): skin Mother Family Medical History: Diabetes Mellitus, Hypertension, Osteoarthritis (OA) Additional Family Medical History / Comment(s): MURMUR Sister(s) Family Medical History: Cancer Additional Family Medical History / Comment(s): ovarian General Exam Limitations: no limitations General appearance: obese Head exam: Present: atraumatic, normocephalic, normal inspection Eye exam: Present: normal appearance, PERRL, EOMI. Absent: scleral icterus, conjunctival injection, periorbital swelling ENT exam: Present: normal exam, mucous membranes moist Neck exam: Present: normal inspection. Absent: tenderness, meningismus, lymphadenopathy Respiratory exam: Present: normal lung sounds bilaterally. Absent: respiratory distress, wheezes, rales, rhonchi, stridor Cardiovascular Exam: Present: regular rate, normal rhythm, normal heart sounds. Absent: systolic murmur, diastolic murmur, rubs, gallop, clicks GI/Abdominal exam: Present: soft. Absent: distended, tenderness, guarding, rebound, rigid Extremities exam: Present: normal inspection, full ROM, normal capillary refill, calf tenderness (Calf tenderness without evidence of infectious process. Distal CMS intact), other (Patient does have some soft tissue tenderness to the left calf area. No palpable cord, no erythema. No break in skin integrity. Full range of motion. Distal sensation intact. No distal or proximal abdomen was other than where the breakages and the patient's lateral foot. Homans sign is negativ). Absent: tenderness, pedal edema, joint swelling Back exam: Present: normal inspection Neurological exam: Present: alert, oriented X3, CN II-XII intact Psychiatric exam: Present: normal affect, normal mood Skin exam: Present: warm, dry, intact, normal color. Absent: rash Course Vital Signs 06/27/22 15:28 Temperature 98.3 F Pulse Rate 86 Respiratory 16 Rate Blood Pressure 140/68 O2 Sat by Pulse 98 Oximetry Medical Decision Making - Medical Decision Making Venous Doppler showed no evidence of DVT.I suspect the patient's soft tissue pain is related to wearing the walking boot itself. We did discuss options such as losing the upper straps, contacting the coding consultant to see if there is another apparatus. Infectious process. No evidence of vascular insult. Pulses were intact. Sensation. Patient no distress on discharge. I'm going to add on a pulse relaxer to the patient's pain medicine regimen. Told to repeat the venous Doppler in 1 week if symptoms persist. Follow-up with her regular physician and the coding consultant. Treatment plan discussed, questions answered. Patient was told to return to the ER for any signs or symptoms worsen. Told to return immediately if any other problems arise. All questions answered. Treatment plan discussed. Patient in agreement Every effort has been made to ensure accuracy of this dictation. However, due to the limitations of electronic medical records and dictation devices, errors in charting still occur. Supervising Dr. Staley Disposition Clinical Impression: Pain in left lower leg Disposition: HOME SELF-CARE Condition: Good Instructions (If sedation given, give patient instructions): Musculoskeletal Pain (ED) Additional Instructions: Follow-up with your coding consultant for further guidance. If pain persists or worsens she should have the venous Doppler repeated. Follow-up with your regular physician as directed. Return to the ER immediately if any symptoms worsen, new symptoms arise, or any other problems develop. Prescriptions: Cyclobenzaprine [Flexeril] 10 mg PO TID PRN #20 tab PRN Reason: Spasms Is patient prescribed a controlled substance at d/c from ED?: No Referrals: Cuca Iqbal MD [Primary Care Provider] - 07/01/22 Time of Disposition: 16:49
[2022-06-27 17:12] VITALS: BP 140/93; PULSE 85; RESP 18
== END 2022-06-27 17:11 | disposition home or self-care (01) ==
LOC: SUPCPDRO 14:58 → EC 14:58
DX: M79.662 Pain in left lower leg (principal); J45.909 Unspecified asthma, uncomplicated; J44.9 Chronic obstructive pulmonary disease, unspecified; E11.9 Type 2 diabetes mellitus without complications; I10 Essential (primary) hypertension; Z79.82 Long term (current) use of aspirin; Z79.4 Long term (current) use of insulin; Z79.899 Other long term (current) drug therapy; Z79.83 Long term (current) use of bisphosphonates; Z91.048 Other nonmedicinal substance allergy status; Z91.041 Radiographic dye allergy status; Z88.8 Allergy status to other drugs, medicaments and biological substances; Z88.1 Allergy status to other antibiotic agents; Z88.6 Allergy status to analgesic agent; Z88.0 Allergy status to penicillin; Z88.5 Allergy status to narcotic agent
CPT/HCPCS: 99283

== ENCOUNTER 2023-01-13 10:49 | Observation (INO) | payer OTHER ==
[2023-01-13 11:51] LABS: Glucose,Whole Blood 152 mg/dL (70-110)
[2023-01-13] MEDS ORDERED: METOPROLOL TARTRATE 5 MG/5 ML VIAL IVP ONE ×2 (12:08→12:14)
[2023-01-13] MEDS ORDERED: HEPARIN SODIUM 1,000 UN/ML (10ML VL) ONE (12:11)
[2023-01-13] MEDS ORDERED: MIDAZOLAM 2 MG/2 ML VIAL IV ONE (12:13)
[2023-01-13] MEDS: HEPARIN SODIUM 1,000 UN/ML (10ML VL) IV ONE ×2 (12:14→12:46)
[2023-01-13] MEDS ORDERED: IV FLUID CONTINUATION 1,000 ML IV ONE (12:16)
[2023-01-13] MEDS ORDERED: LIDOCAINE 1% INJ 10MG/ML (20 ML MDV) ONE (12:21)
[2023-01-13] MEDS ORDERED: LIDOCAINE 1% INJ 10MG/ML (30 ML VIAL-PF) SQ ONE (12:26)
[2023-01-13] MEDS ORDERED: fentaNYL (PF) 50 MCG/ML 2 ML AMP ONE (12:28)
[2023-01-13] MEDS ORDERED: fentaNYL (PF) 50 MCG/1 ML VIAL IV ONE (12:29)
[2023-01-13] MEDS ORDERED: NITROGLYCERIN 1000MCG/10ML SYRINGE INTRACORON ONE (12:46)
[2023-01-13] MEDS ORDERED: IOPAMIDOL-370 200ML BTL INJ ONE (12:50)
[2023-01-13] MEDS ORDERED: PRASUGREL 10 MG TAB ONE (12:53)
[2023-01-13] MEDS ORDERED: RX INFO: IV CONTRAST WAS GIVEN 1 EACH MISC MISCELLANE PRN (12:57)
[2023-01-13] MEDS ORDERED: NITROGLYCERIN SL TABS 0.4 MG TAB SUBLINGUAL PRN (12:57)
[2023-01-13] MEDS ORDERED: ZOLPIDEM 5 MG TAB PO PRN (12:57)
[2023-01-13] MEDS ORDERED: ATROPINE SULFATE 0.1 MG/ML 10ML SYRINGE IV PRN (12:57)
[2023-01-13] MEDS ORDERED: MAG HYDROX/AL HYDROX/SIMETH 30 ML CUP PO PRN (12:57)
[2023-01-13] MEDS ORDERED: PRASUGREL 10 MG TAB PO ONE (12:57)
[2023-01-13] MEDS ORDERED: SODIUM CHLORIDE 0.9% 1,000 ML in EMPTY BAG 1 BAG IV SCH (13:00)
--- NOTE | 2023-01-13 13:03 | P.PCN ---
Date of Procedure: 01/13/23 Operative Findings: PERCUTANEOUS CORONARY INTERVENTION Performing physician Mohamud Sommer M.D. Procedure Performed: 1. Successful stenting of the mid LAD using 3.0 x 15 mm Xience drug-eluting stent with an excellent angiographic results with adjunctive use of IVUS 2. Selective right common femoral artery angiogram Indication: Unstable angina and this 52-year-old female patient who presented to the hospital with chest discomfort and ruled out for acute coronary event. She underwent a heart catheterization and attributes severe disease involving the mid left anterior descending artery. She was brought today to undergo an intervention on the LAD Approach: Right radial artery and right common femoral artery Complications: None Level of Sedation: Moderate with a sedation length of 42 minutes Procedure Discussion: After diagnostic heart catheterization was performed at [facility] and after the decision was made toward PCI, the patient was brought to the cardiac research laboratory manager here at [facility]. Anticoagulation was initiated using heparin with continuous ACT monitoring. Subsequently attempting engaging the left main using JL 3.5 and JL 3 and CLS was unsuccessful from right radial approach. At that point I decided to axis the right common femoral artery. It was accessed using micropuncture technique, the micropuncture wire passed easily then I placed a 6-Cymraes sheath. After that I was able to engage the left main using JL 3 guiding catheter. After that I wire the LAD using a run-through wire. I did intravascular ultrasound of the LAD and that showed a diameter between 2.5-3 mm. The predilatation was performed using 2.5 mm balloon before I deployed 3.0 x 15 mm stent where the stent was positioned under fluoroscopy guidance and deployed under 12 yvan for 20 seconds. Final angiogram showed excellent angiographic results and the procedure was completed was no complication. Selective right common femoral artery angiogram was performed by the end. The procedure was completed there was no complication Postprocedure Management: 1. Dual antiplatelet therapy using aspirin and Effient for 12 month 2. Aggressive cholesterol control 3. Risk factors modification
[2023-01-13 16:18] LABS: Glucose,Whole Blood 168 mg/dL (70-110)
[2023-01-13] MEDS ORDERED: tiZANidine 4 MG TAB PO PRN (16:26)
[2023-01-13] MEDS ORDERED: DEXTROSE 50% SYRINGE 50 ML IVP PRN ×2 (16:28)
[2023-01-13] MEDS ORDERED: INSULIN DETEMIR (LEVEMIR) 100 UNIT/ML SYR SQ SCH (17:30)
[2023-01-13] MEDS: oxyCODONE-APAP 5-325MG 1 EACH TAB PO PRN ×2 (17:47→23:49)
[2023-01-13] MEDS: PANTOPRAZOLE 40 MG TABLET PO SCH (17:48)
[2023-01-13] MEDS: INSULIN ASPART (NovoLOG) 100 UNIT/ML VIAL SQ SCH ×3 (17:48→20:21)
[2023-01-13 20:10] LABS: Glucose,Whole Blood 221 mg/dL (70-110)
[2023-01-13] MEDS: METOPROLOL TARTRATE 25 MG TAB PO SCH (20:21)
[2023-01-13] MEDS ORDERED: ATORVASTATIN 80 MG TAB PO SCH (21:00)
[2023-01-13] MEDS ORDERED: MONTELUKAST 10 MG TAB PO SCH (21:00)
--- NOTE | 2023-01-13 22:59 | HP ---
HISTORY AND PHYSICAL CHIEF COMPLAINT: Chest pain. HISTORY OF PRESENT ILLNESS: This is a 52-year-old woman with a past medical history of COPD, asthma, diabetes mellitus, being followed by Dr. helm chest pain to [facility]. Because of LAD stenosis, the patient was transferred to [facility] and Dr. Sommer performed LAD stenting. There is no history of any fever, rigors, or chills at this time. No history of headache, loss of consciousness, or seizures. PAST MEDICAL HISTORY: Reviewed include asthma, COPD. Rest of the history and rest of the chart is also reviewed. HOME MEDICATIONS: Reviewed include Zanaflex. Dose and rest of medications noted. ALLERGIES: Adhesives. The rest of the allergies are reviewed. FAMILY HISTORY: History of skin cancer. SOCIAL HISTORY: Previous history of smoking. Occasional alcohol intake. REVIEW OF SYSTEMS: A 14-point review is negative except as mentioned earlier. PHYSICAL EXAMINATION: VITAL SIGNS: Pulse is 99, blood pressure 130/87, respirations 16. HEENT: Conjunctivae normal. NECK: No JVD. CARDIOVASCULAR: S1, S2 muffled. RESPIRATIONS: Breath sounds diminished at the bases. Scattered rhonchi and crackles. ABDOMEN: Soft, nontender. LEGS: No edema. NERVOUS SYSTEM: Nonfocal. LABS: Glucose 150 to 168. ASSESSMENT: 1. Coronary artery disease, status post cardiac catheterization and LAD stenting. 2. Asthma, chronic obstructive pulmonary disease. 3. Diabetes mellitus, type 2. 4. Hypertension. 5. Adenoidectomy. 6. Cholecystectomy. RECOMMENDATIONS AND DISCUSSION: This is a 52-year-old woman who presented with multiple complex medical issues, we will monitor the patient closely. We will continue monitoring. Continue with dual antiplatelet treatment, Lipitor. Resume the home medication. Monitor blood sugars. Closely follow with Cardiology. Prognosis guarded. Further recommendations to follow. MMODL / IJN: [id number] / BINH
[2023-01-14 06:14] LABS: Glucose,Whole Blood 328 mg/dL (70-110)
[2023-01-14] MEDS: PANTOPRAZOLE 40 MG TABLET PO SCH (06:17)
[2023-01-14] MEDS: INSULIN ASPART (NovoLOG) 100 UNIT/ML VIAL SQ SCH ×4 (06:17→12:12)
[2023-01-14] MEDS: METOPROLOL TARTRATE 25 MG TAB PO SCH (08:03)
[2023-01-14 08:04] VITALS: RESP 20; TEMP 98
[2023-01-14 08:21] LABS: Basophils % (A) 0 %; Eosinophils % (A) 0 %; HCT 36.6 % (34.0-46.0); HGB 11.5 gm/dL (11.4-16.0); Hypochromasia Slight; Lymphocytes # (A) 0.5 k/uL (1.0-4.8); Lymphocytes % (A) 6 %; MCH 26.6 pg (25.0-35.0); MCHC 31.5 g/dL (31.0-37.0); MCV 84.4 fL (80.0-100.0); Mean Platelet Volume 7.4; Monocytes # (A) 0.3 k/uL (0-1.0); Monocytes % (A) 3 %; Neutrophils # (A) 8.4 k/uL (1.3-7.7); Neutrophils % (A) 91 %; Platelet Count 207 k/uL (150-450); RBC 4.33 m/uL (3.80-5.40); RDW 15.2 % (11.5-15.5); WBC 9.3 k/uL (3.8-10.6)
[2023-01-14 08:41] LABS: African American GFR (CKD) >90 (>60 ml/min/1.73 sqM); Anion Gap 11 mmol/L; Blood Urea Nitrogen 19 mg/dL (7-17); Calcium 8.3 mg/dL (8.4-10.2); Carbon Dioxide 24 mmol/L (22-30); Chloride 102 mmol/L (98-107); Glucose 309 mg/dL (74-99); Non-African American GFR(CKD) 79 (>60 ml/min/1.73 sqM); Potassium 4.2 mmol/L (3.5-5.1); Sodium 137 mmol/L (137-145)
[2023-01-14] MEDS ORDERED: LEVOTHYROXINE 100 MCG TAB PO SCH (09:00)
[2023-01-14] MEDS ORDERED: ASPIRIN 81 MG PO SCH (09:00)
[2023-01-14] MEDS ORDERED: PARoxetine 20 MG TAB PO SCH (09:00)
[2023-01-14] MEDS ORDERED: LOSARTAN 25 MG TAB PO SCH (09:00)
[2023-01-14] MEDS ORDERED: PRASUGREL 10 MG TAB PO SCH (09:00)
[2023-01-14] MEDS ORDERED: DAPAGLIFLOZIN PROPANEDIOL 5 MG TABLET PO SCH (09:00)
[2023-01-14 10:18] VITALS: BMI 42.7
--- NOTE | 2023-01-14 11:23 | P.PN ---
Subjective Progress Note Date: 01/14/23 History of present illness: This is a 52 year old female initially presented to [facility] with chest pain. Echocardiogram revealed EF of 55% with moderate aortic stenosis. Cardiac catheterization performed at [facility] by Dr. Sommer revealed intermediate to severe disease involving the mid LAD. RCA had mild disease only. Patient was transferred to [facility] and is status post successful stenting of the mid LAD by Dr. Sommer. Patient is to be on dual antiplatelet therapy aspirin and Effient for 12 months. Patient denies any chest pain or shortness of breath. Groin and wrist site. No hematoma, bleeding or complications. Physical examination: Gen: This is a morbidly obese 52-year-old female. She is resting in a recliner and appears to be comfortable and in no acute distress VS: reviewed HEENT: Head is atraumatic, normocephalic. Pupils equal, round. Sclerae is anicteric. NECK: Supple. No JVD. LUNGS: Clear to auscultation. No wheezes or rhonchi. No intercostal retractions. HEART: Regular rate and rhythm. No murmur. EXTREMITIES: No pedal edema. No calf tenderness. NEUROLOGICAL: Patient is awake, alert and oriented x3. Assessment: Coronary artery disease status post stent of the mid LAD Diabetes mellitus type 2 Hypertension Plan: Patient is cleared from cardiology for discharge home on the current medications and a follow-up with Dr. Sommer in one week. Nurse practitioner note has been reviewed, I agree with documented findings and plan of care. Patient was seen and examined. Objective - Vital Signs Vital signs: Vital Signs Temp 98.0 F 01/14/23 07:46 Pulse 89 01/14/23 07:46 Resp 20 01/14/23 07:46 BP 121/77 01/14/23 07:46 Pulse Ox 94 L 01/14/23 07:46 FiO2 Intake & Output 01/13/23 01/14/23 01/14/23 18:59 06:59 18:59 Intake Total 290 540 Output Total 575 800 Balance -285 -800 540 Weight 113 kg Intake: IV 200 Oral 90 540 Output: Urine 575 800 Other: Voiding Method Toilet - Labs CBC & Chem 7: 01/14/23 07:32 01/14/23 07:32 Labs: Abnormal Lab Results - Last 24 Hours (Table) 01/13/23 01/13/23 01/13/23 Range/Units 11:40 16:15 20:07 Neutrophils # (1.3-7.7) k/uL Lymphocytes # (1.0-4.8) k/uL BUN (7-17) mg/dL Glucose (74-99) mg/dL POC Glucose (mg/dL) 152 H 168 H 221 H (70-110) mg/dL Calcium (8.4-10.2) mg/dL 01/14/23 01/14/23 01/14/23 Range/Units 06:12 07:32 07:32 Neutrophils # 8.4 H (1.3-7.7) k/uL Lymphocytes # 0.5 L (1.0-4.8) k/uL BUN 19 H (7-17) mg/dL Glucose 309 H (74-99) mg/dL POC Glucose (mg/dL) 328 H (70-110) mg/dL Calcium 8.3 L (8.4-10.2) mg/dL
[2023-01-14 11:51] LABS: Glucose,Whole Blood 332 mg/dL (70-110)
[2023-01-14] MEDS: oxyCODONE-APAP 5-325MG 1 EACH TAB PO PRN (12:11)
[2023-01-14 12:54] VITALS: BP 127/79; PULSE 80
[2023-01-14] MEDS ORDERED: NON FORMULARY DRUG (Dulaglutide [Trulicity] 1.5 MG/0.5 ML Each) SQ SCH (16:26)
--- NOTE | 2023-01-15 06:25 | P.DS ---
Providers Date of admission: 01/13/23 12:53 Expected date of discharge: 01/14/23 Attending physician: Ciro Flores Consults: 01/13/23 12:57 Consult Physician Routine Consulting Provider: [facility] Consult Reason/Comments: Post Interventional Patient Do you want consulting provider notified?: Already Contacted Primary care physician: Cuca Iqbal Hospital Course: Final diagnosis Coronary artery disease, status post cardiac catheterization and LAD stenting Asthma/chronic obstructive pulmonary disease history, not in exacerbation History of diabetes mellitus, type II Hypertension Adenoidectomy Cholecystectomy Morbid obesity with a BMI 42.8 Full code Discharge disposition Patient is being discharged in a stable condition with guarded prognosis to home. Patient will follow-up with Dr. Iqbal in the outpatient setting upon discharge. Patient is to follow-up with cardiology as scheduled. Total time taken is greater than 35 minutes. Hospital course This is a 52-year-old female who was recently admitted over at [facility] with chest pain found to have stenosis of the LAD and sent here and underwent successful stenting with Dr. Sommer. Patient was reevaluated this morning by cardiology cleared by consultation. Please refer to consultation note for further HPI. Patient reports to feeling well and will be discharged today. Currently no reports of chest pain, shortness of breath, or palpitations. Patient is afebrile. No reports of nausea or vomiting and patient is tolerating diet. Patient will be discharged home today. Physical exam: Gen: This is a 52-year-old female who is awake, alert and oriented 3, well- developed, well-nourished, morbidly obese HEENT: Head is atraumatic, normocephalic. Pupils equal, round. Sclerae is ani cteric. NECK: Supple. No JVD. No lymphadenopathy. No thyromegaly. LUNGS: Clear to auscultation. No wheezes or rhonchi. No intercostal retractions. HEART: Regular rate and rhythm. No murmur. ABDOMEN: Soft. Bowel sounds are present. No masses. No tenderness. EXTREMITIES: No pedal edema. No calf tenderness. NEUROLOGICAL: Patient is awake, alert and oriented x3. Cranial nerves 2 through 12 are grossly intact. Please refer to medication reconciliation sheet for a list of medications. The impression and plan of care has been dictated by Cara iY, Nurse Practitioner as directed. Dr. Mark MD I have performed a history and examination and MDM of this patient, discussed the same with the dictator, and agree with the dictator's assessment and plan as written ,documented as a scribe. Based on total visit time, I have performed more than 50% of the visit. Patient Condition at Discharge: Stable Plan - Discharge Summary Discharge Rx Participant: No New Discharge Prescriptions: New Metoprolol Tartrate [Lopressor] 25 mg PO BID #60 tab Nitroglycerin Sl Tabs [Nitrostat] 0.4 mg SUBLINGUAL Q5M PRN #20 tab PRN Reason: Chest Pain Aspirin 81 mg PO DAILY #30 tab Atorvastatin [Lipitor] 80 mg PO HS #30 tab Prasugrel [Effient] 10 mg PO DAILY #90 tablet Continue Montelukast [Singulair] 10 mg PO HS Losartan Potassium [Cozaar] 25 mg PO DAILY metFORMIN HCL [Glucophage] 1,000 mg PO AC-BID PARoxetine HCL [Paxil] 40 mg PO DAILY Ibuprofen [Motrin] 800 mg PO TID PRN PRN Reason: Pain Insulin Glargine,Hum.rec.anlog [Lantus Solostar Pen] 50 units SQ W/SUPPER oxyCODONE-APAP 5-325MG [Percocet 5-325 mg] 1 tab PO TID PRN PRN Reason: Pain tiZANidine [Zanaflex] 4 mg PO TID PRN PRN Reason: Pain Levothyroxine Sodium [Synthroid] 200 mcg PO DAILY Insulin Aspart [NovoLOG Flexpen] 10 units SQ AC-TID Empagliflozin [Jardiance] 10 mg PO DAILY Insulin Aspart [NovoLOG Flexpen] See Protocol SQ AC-TID Dulaglutide [Trulicity] 1.5 mg SQ WE Omeprazole [PriLOSEC] 20 mg PO AC-BID Discontinued Metoprolol Tartrate [Lopressor] 50 mg PO TID Clopidogrel [Plavix] 75 mg PO HS Atorvastatin Calcium [Lipitor] 40 mg PO HS Discharge Medication List Montelukast [Singulair] 10 mg PO HS 04/16/17 [History] Losartan Potassium [Cozaar] 25 mg PO DAILY 06/24/17 [History] metFORMIN HCL [Glucophage] 1,000 mg PO AC-BID 01/05/18 [History] PARoxetine HCL [Paxil] 40 mg PO DAILY 12/27/18 [History] Insulin Aspart [NovoLOG Flexpen] 10 units SQ AC-TID 04/30/22 [History] Levothyroxine Sodium [Synthroid] 200 mcg PO DAILY 04/30/22 [History] Dulaglutide [Trulicity] 1.5 mg SQ WE 01/13/23 [History] Empagliflozin [Jardiance] 10 mg PO DAILY 01/13/23 [History] Ibuprofen [Motrin] 800 mg PO TID PRN 01/13/23 [History] Insulin Aspart [NovoLOG Flexpen] See Protocol SQ AC-TID 01/13/23 [History] Insulin Glargine,Hum.rec.anlog [Lantus Solostar Pen] 50 units SQ W/SUPPER 01/13/23 [History] Omeprazole [PriLOSEC] 20 mg PO AC-BID 01/13/23 [History] oxyCODONE-APAP 5-325MG [Percocet 5-325 mg] 1 tab PO TID PRN 01/13/23 [History] tiZANidine [Zanaflex] 4 mg PO TID PRN 01/13/23 [History] Aspirin 81 mg PO DAILY #30 tab 01/14/23 [Rx] Atorvastatin [Lipitor] 80 mg PO HS #30 tab 01/14/23 [Rx] Metoprolol Tartrate [Lopressor] 25 mg PO BID #60 tab 01/14/23 [Rx] Nitroglycerin Sl Tabs [Nitrostat] 0.4 mg SUBLINGUAL Q5M PRN #20 tab 01/14/23 [Rx] Prasugrel [Effient] 10 mg PO DAILY #90 tablet 01/14/23 [Rx] Follow up Appointment(s)/Referral(s): Reilly Beck MD [STAFF PHYSICIAN] - 1 Week (Office holding calls; please call ISAIAH for follow up appointment.) Cuca Iqbal MD [Primary Care Provider] - 1 Week (Office not answering at this time; please call to schedule follow up appointment ISAIAH.) Patient Instructions/Handouts: Heart Catheterization (DC) Activity/Diet/Wound Care/Special Instructions: Okay for discharge once cleared by cardiology Activity Limited until follow-up Follow-up with primary care provider on discharge Follow-up with cardiology in one week Continue taking medications as prescribed Continue heart healthy diabetic diet Continue monitoring blood sugars closely and keep a diary of all readings for primary follow-up Discharge Disposition: HOME SELF-CARE
== END 2023-01-14 14:28 | disposition home or self-care (01) ==
LOC: 3SCARD 12:53
PROVIDERS: ADMIT Hospitalist; ATTEND Hospitalist
DX: I25.110 Atherosclerotic heart disease of native coronary artery with unstable angina pectoris (principal); I10 Essential (primary) hypertension; I35.0 Nonrheumatic aortic (valve) stenosis; J44.9 Chronic obstructive pulmonary disease, unspecified; E11.9 Type 2 diabetes mellitus without complications; Z90.49 Acquired absence of other specified parts of digestive tract; E66.01 Morbid (severe) obesity due to excess calories; Z68.41 Body mass index [BMI] 40.0-44.9, adult; Z79.85 Long-term (current) use of injectable non-insulin antidiabetic drugs; Z79.4 Long term (current) use of insulin; Z79.84 Long term (current) use of oral hypoglycemic drugs; Z79.890 Hormone replacement therapy; Z79.899 Other long term (current) drug therapy; Z88.5 Allergy status to narcotic agent; Z88.0 Allergy status to penicillin; Z88.8 Allergy status to other drugs, medicaments and biological substances; Z88.1 Allergy status to other antibiotic agents; Z91.041 Radiographic dye allergy status; Z91.048 Other nonmedicinal substance allergy status; Z87.891 Personal history of nicotine dependence; Z98.890 Other specified postprocedural states; Z80.8 Family history of malignant neoplasm of other organs or systems
CPT/HCPCS: 92978; 80048; 85025; 83036; G0378; C9600; C1887 ×2; C1769 ×3; C1725; C1894; C1753; C1874; J2250; J2001; J1644; J3010; Q9967

== ENCOUNTER 2023-01-16 16:38 | Emergency (ER) | payer OTHER ==
[2023-01-16 17:23] VITALS: BP 150/85; PULSE 89; RESP 20; TEMP 98.7
[2023-01-16] MEDS ORDERED: IBUPROFEN 800 MG TAB PO STA (18:13)
[2023-01-16] MEDS ORDERED: DEXAMETHASONE SOD PHOSPHATE 10 MG/ML 1 ML VIAL IM STA (18:13)
[2023-01-16] MEDS ORDERED: ACET/COD 300 MG/30 MG STARTER PACK 6 TAB BTL PO STA (18:13)
[2023-01-16] MEDS ORDERED: IBUPROFEN 600 MG STARTER PACK 4 TAB BTL PO STA (18:13)
[2023-01-16] MEDS ORDERED: Acetaminophen-Codeine 300-30mg TAB PO STA (18:13)
--- NOTE | 2023-01-16 18:15 | ED ---
Extremity Problem HPI - General Chief complaint: Extremity Problem,Nontraumatic Stated complaint: Lt leg numbness Time Seen by Provider: 01/16/23 17:40 Source: patient, RN notes reviewed, old records reviewed Mode of arrival: wheelchair Limitations: no limitations - History of Present Illness Initial comments: This is a 52-year-old female to the emergency department for evaluation patient presents to ER for evaluation of pain severe left leg pain pain down back down leg with no travel history or sick contacts no other complaints. No injury or trauma. Patient's history of bursitis this does feel similar although pain is worsened on the leg history of back pain. Patient has no other complaints MD Complaint: extremity pain, extremity swelling, joint pain (Left hip) -: hour(s) Location: left, lower extremity -: Yes arthralgia Radiation: proximal Severity scale (1-10): 7 Quality: sharp Consistency: constant Improves with: nothing Worsens with: nothing Associated Symptoms: denies other symptoms - Related Data Home Medications Medication Instructions Recorded Confirmed Montelukast [Singulair] 10 mg PO HS 04/16/17 01/13/23 Losartan Potassium [Cozaar] 25 mg PO DAILY 06/24/17 01/13/23 metFORMIN HCL [Glucophage] 1,000 mg PO AC-BID 01/05/18 01/13/23 PARoxetine HCL [Paxil] 40 mg PO DAILY 12/27/18 01/13/23 Insulin Aspart [NovoLOG Flexpen] 10 units SQ AC-TID 04/30/22 01/13/23 Levothyroxine Sodium [Synthroid] 200 mcg PO DAILY 04/30/22 01/13/23 Dulaglutide [Trulicity] 1.5 mg SQ WE 01/13/23 01/13/23 Empagliflozin [Jardiance] 10 mg PO DAILY 01/13/23 01/13/23 Ibuprofen [Motrin] 800 mg PO TID PRN 01/13/23 01/13/23 Insulin Aspart [NovoLOG Flexpen] See Protocol SQ AC-TID 01/13/23 01/13/23 Insulin Glargine,Hum.rec.anlog 50 units SQ W/SUPPER 01/13/23 01/13/23 [Lantus Solostar Pen] Omeprazole [PriLOSEC] 20 mg PO AC-BID 01/13/23 01/13/23 oxyCODONE-APAP 5-325MG [Percocet 1 tab PO TID PRN 01/13/23 01/13/23 5-325 mg] tiZANidine [Zanaflex] 4 mg PO TID PRN 01/13/23 01/13/23 Previous Rx's Medication Instructions Recorded Aspirin 81 mg PO DAILY #30 tab 01/14/23 Atorvastatin [Lipitor] 80 mg PO HS #30 tab 01/14/23 Metoprolol Tartrate [Lopressor] 25 mg PO BID #60 tab 01/14/23 Nitroglycerin Sl Tabs [Nitrostat] 0.4 mg SUBLINGUAL Q5M PRN #20 tab 01/14/23 Prasugrel [Effient] 10 mg PO DAILY #90 tablet 01/14/23 Allergies Allergy/AdvReac Type Severity Reaction Status Date / Time adhesive Allergy red skin Verified 01/16/23 17:19 Iodinated Contrast Media Allergy Itching Verified 01/16/23 17:19 [Iodinated Contrast Media - IV Dye] prednisone Allergy Rapid Verified 01/16/23 17:19 Heart Rate verapamil Allergy Anaphylaxis Verified 01/16/23 17:19 celecoxib [From Celebrex] AdvReac CAUSES GI Verified 01/16/23 17:19 BLEEDING cephalexin monohydrate AdvReac Vomiting Verified 01/16/23 17:19 [From Keflex] diphenhydramine AdvReac arm burned Verified 01/16/23 17:19 [From Benadryl] when given IV Penicillins AdvReac Nausea & Verified 01/16/23 17:19 Vomiting tramadol AdvReac Nausea & Verified 01/16/23 17:19 Vomiting Review of Systems ROS Statement: Those systems with pertinent positive or pertinent negative responses have been documented in the HPI. ROS Other: All systems not noted in ROS Statement are negative. Past Medical History Past Medical History: Asthma, Chest Pain / Angina, COPD, CVA/TIA, Diabetes Mellitus, Hyperlipidemia, Hypertension Additional Past Medical History / Comment(s): neuoropathy, RT CATARACT TIA History of Any Multi-Drug Resistant Organisms: None Reported Past Surgical History: Adenoidectomy, Cholecystectomy, Heart Catheterization With Stent, Tonsillectomy Additional Past Surgical History / Comment(s): D&C, carpal tunnel surgery left , LT ARM SX FOR "PINCHED NERVE", LT THUMB TRIGGER FINGER, rae neuroma removed left foot, heart cath 2016 , right ankle fx 01/2018 no surgery , LT CATARACT REMOVED WITH LENS IMPLANT thyroidectomy Past Anesthesia/Blood Transfusion Reactions: Previous Problems w/ Anesthesia, Motion Sickness Additional Past Anesthesia/Blood Transfusion Reaction / Comment(s): difficulty waking from anesthesia Past Psychological History: Anxiety, Depression, Panic Disorder Smoking Status: Former smoker Past Alcohol Use History: Occasional Past Drug Use History: None Reported - Past Family History Father Family Medical History: Cancer Additional Family Medical History / Comment(s): skin Mother Family Medical History: Diabetes Mellitus, Hypertension, Osteoarthritis (OA) Additional Family Medical History / Comment(s): MURMUR Sister(s) Family Medical History: Cancer Additional Family Medical History / Comment(s): ovarian General Exam Limitations: no limitations General appearance: alert, in no apparent distress Head exam: Present: atraumatic, normocephalic, normal inspection Eye exam: Present: normal appearance, PERRL, EOMI. Absent: scleral icterus, conjunctival injection, periorbital swelling ENT exam: Present: normal exam, mucous membranes moist Neck exam: Present: normal inspection. Absent: tenderness, meningismus, lymphadenopathy Respiratory exam: Present: normal lung sounds bilaterally. Absent: respiratory distress, wheezes, rales, rhonchi, stridor Cardiovascular Exam: Present: regular rate, normal rhythm, normal heart sounds. Absent: systolic murmur, diastolic murmur, rubs, gallop, clicks GI/Abdominal exam: Present: soft, normal bowel sounds. Absent: distended, tenderness, guarding, rebound, rigid Extremities exam: Present: normal inspection, full ROM, normal capillary refill. Absent: tenderness, pedal edema, joint swelling, calf tenderness Back exam: Present: normal inspection Neurological exam: Present: alert, oriented X3, CN II-XII intact Psychiatric exam: Present: normal affect, normal mood Skin exam: Present: warm, dry, intact, normal color. Absent: rash Course Vital Signs 01/16/23 17:19 Temperature 98.7 F Pulse Rate 89 Respiratory 20 Rate Blood Pressure 150/85 O2 Sat by Pulse 99 Oximetry - Reevaluation(s) Reevaluation #1: 01/16/23 23:07 Medical record is reviewed Reevaluation #2: 01/16/23 23:07 Patient has no changes here but also denying any treatment Reevaluation #3: 01/16/23 23:07 Was pt. sent in by a medical professional or institution? @ -no Did you speak to anyone other than the patient for history? @ -no Did you review nursing and triage notes? @ -agree Were old charts reviewed? @ -no Differential Diagnosis? @ -prior EKG interpreted by me (3pts min.)? @ -yes X-rays interpreted by me (1pt min.)? @ -yes CT interpreted by me (1pt min.)? @ -no U/S interpreted by me (1pt. min.)? @ -no What testing was considered but not performed? (CT, X-rays, U/S, labs)? Why? @ -no What meds were considered but not given? Why? @ -no Did you discuss the management of the patient with other professionals? @ -no Did you reconcile home meds? @ -no Was smoking cessation discussed for >3mins.? @ -no Was critical care preformed (if so, how long)? @ -no Were there social determinants of health that impacted care today? How? (Homelessness, low income, unemployed, alcoholism, drug addiction, transportation, low edu. Level, literacy, decrease access to med. care, retirement, rehab)? @ -no Was there de-escalation of care discussed even if they declined? (Discuss DNR or withdrawal of care, Hospice)? @ -no What co-morbidities impacted this encounter? (DM, HTN, Smoking, COPD, CAD, Cancer, CVA, Hep., AIDS, mental health diagnosis, sleep apnea, morbid obesity)? @ -none Was patient admitted / discharged? @ -dc Undiagnosed new problem with uncertain prognosis? @ -no Drug Therapy requiring intensive monitoring for toxicity (Heparin, Nitro, Insulin, Cardizem)? @ -no Were any procedures done? @ -no Diagnosis/symptom? @ -Left Hip Bursitis Acute, or Chronic, or Acute on Chronic? @ -acute Uncomplicated (without systemic symptoms) or Complicated (systemic symptoms)? @ -uncomplicated Side effects of treatment? @ -no Exacerbation, Progression, or Severe Exacerbation] @ -no Poses a threat to life or bodily function? @ -no Reevaluation #4: 01/16/23 23:07 Patient informed results questions answered and prefers discharge Medical Decision Making - Medical Decision Making 52 female to the emergency department for severe left leg pain left hip bursitis. Patient refusing imaging medication and will be discharged home Disposition Clinical Impression: Hip bursitis, left, Left hip pain, Left leg pain Disposition: HOME SELF-CARE Condition: Good Instructions (If sedation given, give patient instructions): Hip Bursitis (ED) Is patient prescribed a controlled substance at d/c from ED?: No Referrals: Cuca Iqbal MD [Primary Care Provider] - 1-2 days Time of Disposition: 18:10
== END 2023-01-16 18:53 | disposition home or self-care (01) ==
LOC: EC 16:38
DX: M70.72 Other bursitis of hip, left hip (principal); I10 Essential (primary) hypertension; J44.9 Chronic obstructive pulmonary disease, unspecified; E78.5 Hyperlipidemia, unspecified; F32.A Depression, unspecified; F41.9 Anxiety disorder, unspecified; E11.9 Type 2 diabetes mellitus without complications; Z79.82 Long term (current) use of aspirin; Z79.84 Long term (current) use of oral hypoglycemic drugs; Z79.4 Long term (current) use of insulin; Z79.899 Other long term (current) drug therapy; Z88.0 Allergy status to penicillin; Z88.1 Allergy status to other antibiotic agents; Z88.5 Allergy status to narcotic agent; Z88.6 Allergy status to analgesic agent; Z88.8 Allergy status to other drugs, medicaments and biological substances; Z87.891 Personal history of nicotine dependence; Z90.49 Acquired absence of other specified parts of digestive tract
CPT/HCPCS: 99283

== ENCOUNTER 2023-09-08 21:39 | Emergency (ER) | payer OTHER ==
[2023-09-08 21:44] VITALS: RESP 18
--- NOTE | 2023-09-08 21:50 | ED ---
Female Urogenital HPI - General Source: patient Mode of arrival: ambulatory Limitations: no limitations <Brendan Alfredo - Last Filed: 09/08/23 21:50> <YuepaolaClifford Fiore - Last Filed: 09/09/23 00:46> - General Chief complaint: Urogenital Stated complaint: Poss UTI,Rash - History of Present Illness Initial comments: 53-year-old female presenting to the ED with a chief complaint of dysuria. Patient states for the past week has had some pain with urination. (Brendan Alfredo) - Related Data Home Medications Medication Instructions Recorded Confirmed Montelukast [Singulair] 10 mg PO HS 04/16/17 01/13/23 Losartan Potassium [Cozaar] 25 mg PO DAILY 06/24/17 01/13/23 metFORMIN HCL [Glucophage] 1,000 mg PO AC-BID 01/05/18 01/13/23 PARoxetine HCL [Paxil] 40 mg PO DAILY 12/27/18 01/13/23 Insulin Aspart [NovoLOG Flexpen] 10 units SQ AC-TID 04/30/22 01/13/23 Levothyroxine Sodium [Synthroid] 200 mcg PO DAILY 04/30/22 01/13/23 Dulaglutide [Trulicity] 1.5 mg SQ WE 01/13/23 01/13/23 Empagliflozin [Jardiance] 10 mg PO DAILY 01/13/23 01/13/23 Ibuprofen [Motrin] 800 mg PO TID PRN 01/13/23 01/13/23 Insulin Aspart [NovoLOG Flexpen] See Protocol SQ AC-TID 01/13/23 01/13/23 Insulin Glargine,Hum.rec.anlog 50 units SQ W/SUPPER 01/13/23 01/13/23 [Lantus Solostar Pen] Omeprazole [PriLOSEC] 20 mg PO AC-BID 01/13/23 01/13/23 oxyCODONE-APAP 5-325MG [Percocet 1 tab PO TID PRN 01/13/23 01/13/23 5-325 mg] tiZANidine [Zanaflex] 4 mg PO TID PRN 01/13/23 01/13/23 Previous Rx's Medication Instructions Recorded Aspirin 81 mg PO DAILY #30 tab 01/14/23 Atorvastatin [Lipitor] 80 mg PO HS #30 tab 01/14/23 Metoprolol Tartrate [Lopressor] 25 mg PO BID #60 tab 01/14/23 Nitroglycerin Sl Tabs [Nitrostat] 0.4 mg SUBLINGUAL Q5M PRN #20 tab 01/14/23 Prasugrel [Effient] 10 mg PO DAILY #90 tablet 01/14/23 Fluconazole [Diflucan] 150 mg PO ONCE #1 tab 09/09/23 Nitrofurantoin Monohyd/M-Cryst 100 mg PO Q12HR 7 Days #14 cap 09/09/23 [Macrobid] Allergies Allergy/AdvReac Type Severity Reaction Status Date / Time adhesive Allergy red skin Verified 09/08/23 21:43 Iodinated Contrast Media Allergy Itching Verified 09/08/23 21:43 [Iodinated Contrast Media - IV Dye] prednisone Allergy Rapid Verified 09/08/23 21:43 Heart Rate verapamil Allergy Anaphylaxis Verified 09/08/23 21:43 celecoxib [From Celebrex] AdvReac CAUSES GI Verified 09/08/23 21:43 BLEEDING cephalexin monohydrate AdvReac Vomiting Verified 09/08/23 21:43 [From Keflex] diphenhydramine AdvReac arm burned Verified 09/08/23 21:43 [From Benadryl] when given IV Penicillins AdvReac Nausea & Verified 09/08/23 21:43 Vomiting tramadol AdvReac Nausea & Verified 09/08/23 21:43 Vomiting Review of Systems ROS Other: All systems not noted in ROS Statement are negative. <Brendan Alfredo - Last Filed: 09/08/23 21:50> ROS Other: All systems not noted in ROS Statement are negative. <Clifford Staley - Last Filed: 09/09/23 00:46> ROS Statement: Those systems with pertinent positive or pertinent negative responses have been documented in the HPI. Past Medical History Past Medical History: Asthma, Chest Pain / Angina, COPD, CVA/TIA, Diabetes Mellitus, Hyperlipidemia, Hypertension Additional Past Medical History / Comment(s): neuoropathy, RT CATARACT TIA History of Any Multi-Drug Resistant Organisms: None Reported Past Surgical History: Adenoidectomy, Cholecystectomy, Heart Catheterization With Stent, Tonsillectomy Additional Past Surgical History / Comment(s): D&C, carpal tunnel surgery left , LT ARM SX FOR "PINCHED NERVE", LT THUMB TRIGGER FINGER, rae neuroma removed left foot, heart cath 2016 , right ankle fx 01/2018 no surgery , LT CATARACT REMOVED WITH LENS IMPLANT thyroidectomy Past Anesthesia/Blood Transfusion Reactions: Previous Problems w/ Anesthesia, Motion Sickness Additional Past Anesthesia/Blood Transfusion Reaction / Comment(s): difficulty waking from anesthesia Past Psychological History: Anxiety, Depression, Panic Disorder Smoking Status: Former smoker Past Alcohol Use History: Occasional Past Drug Use History: None Reported - Past Family History Father Family Medical History: Cancer Additional Family Medical History / Comment(s): skin Mother Family Medical History: Diabetes Mellitus, Hypertension, Osteoarthritis (OA) Additional Family Medical History / Comment(s): MURMUR Sister(s) Family Medical History: Cancer Additional Family Medical History / Comment(s): ovarian <Brendan Alfredo - Last Filed: 09/08/23 21:50> General Exam Limitations: no limitations <Brendan Alfredo - Last Filed: 09/08/23 21:50> General appearance: alert, in no apparent distress Head exam: Present: atraumatic, normocephalic Eye exam: Present: normal appearance, PERRL Neck exam: Present: normal inspection Respiratory exam: Present: normal lung sounds bilaterally. Absent: respiratory distress Cardiovascular Exam: Present: regular rate, normal rhythm GI/Abdominal exam: Present: soft. Absent: distended, tenderness Neurological exam: Present: alert, oriented X3, CN II-XII intact, normal gait. Absent: motor sensory deficit Psychiatric exam: Present: normal affect, normal mood <Clifford Staley N - Last Filed: 09/09/23 00:46> Course Vital Signs 09/08/23 21:40 Temperature 98.1 F Pulse Rate 90 Respiratory 18 Rate Blood Pressure 148/84 O2 Sat by Pulse 98 Oximetry Medical Decision Making - Lab Data Result diagrams: 09/08/23 22:48 09/08/23 22:48 <Clifford Staley - Last Filed: 09/09/23 00:46> - Medical Decision Making Was pt. sent in by a medical professional or institution (, PA, IMPROVEMENT ANALYST, urgent care, hospital, or long term...) When possible be specific @ -No Did you speak to anyone other than the patient for history (EMS, parent, family, police, friend...)? What history was obtained from this source @ -No Did you review nursing and triage notes (agree or disagree)? Why? @ -I reviewed and agree with nursing and triage notes Were old charts reviewed (outside hosp., previous admission, EMS record, old EKG, old radiological studies, urgent care reports/EKG's, long term records)? Report findings @ -No old charts were reviewed Differential Diagnosis (chest pain, altered mental status, abdominal pain women, abdominal pain men, vaginal bleeding, weakness, fever, dyspnea, syncope, headache, dizziness, GI bleed, back pain, seizure, CVA, palpatations, mental health, musculoskeletal)? @ UTI, pyelonephritis, cystitis EKG interpreted by me (3pts min.). @ -As above X-rays interpreted by me (1pt min.). @ -None done CT interpreted by me (1pt min.). @ -None done U/S interpreted by me (1pt. min.). @ -None done What testing was considered but not performed or refused? (CT, X-rays, U/S, labs)? Why? @ -None What meds were considered but not given or refused? Why? @ -None Did you discuss the management of the patient with other professionals (professionals i.e. , PA, IMPROVEMENT ANALYST, lab, RT, psych nurse, social service coordinator, electric meter installer, teacher, navigation officer, welfare case worker)? Give summary @ -No Was smoking cessation discussed for >3mins.? @ -No Was critical care preformed (if so, how long)? @ -No Were there social determinants of health that impacted care today? How? (Homelessness, low income, unemployed, alcoholism, drug addiction, tra nsportation, low edu. Level, literacy, decrease access to med. care, retirement, rehab)? @ -No] Was there de-escalation of care discussed even if they declined (Discuss DNR or withdrawal of care, Hospice)? DNR status @ -[No] What co-morbidities impacted this encounter? (DM, HTN, Smoking, COPD, CAD, Cancer, CVA, ARF, Chemo, Hep., AIDS, mental health diagnosis, sleep apnea, morbid obesity)? @ -[Diabetes Was patient admitted / discharged? Hospital course, mention meds given and route, prescriptions, significant lab abnormalities, going to OR and other pertinent info. @ 53-year-old female with dysuria, urinary frequency. Urinalysis has several white cells and bacteria. She will be treated for UTI. Additionally she complains of increased infection. Prescribed Diflucan. Undiagnosed new problem with uncertain prognosis? @ -[No] Drug Therapy requiring intensive monitoring for toxicity (Heparin, Nitro, Insul in, Cardizem)? @ -[No] Were any procedures done? @ -[No] Diagnosis/symptom? @ uti, vaginal yeast infection Acute, or Chronic, or Acute on Chronic? @ Acute Uncomplicated (without systemic symptoms) or Complicated (systemic symptoms)? @ -[default] Side effects of treatment? @ -[No] Exacerbation, Progression, or Severe Exacerbation? @ -[No] Poses a threat to life or bodily function? How? (Chest pain, [place], [place], pneumonia, PE, COPD, DKA, ARF, appy, cholecystitis, CVA, Diverticulitis, Homicidal, Suicidal, threat to staff... and all critical care pts) @ -[No] (Clifford Staley) - Lab Data Lab Results 09/08/23 09/08/23 09/08/23 Range/Units 22:48 22:48 23:34 WBC 9.0 (3.8-10.6) k/uL RBC 4.92 (3.80-5.40) m/uL Hgb 13.1 (11.4-16.0) gm/dL Hct 39.8 (34.0-46.0) % MCV 80.9 (80.0-100.0) fL MCH 26.6 (25.0-35.0) pg MCHC 32.9 (31.0-37.0) g/dL RDW 15.5 (11.5-15.5) % Plt Count 191 (150-450) k/uL MPV 7.6 Neutrophils % 72 % Lymphocytes % 18 % Monocytes % 5 % Eosinophils % 2 % Basophils % 0 % Neutrophils # 6.5 (1.3-7.7) k/uL Lymphocytes # 1.7 (1.0-4.8) k/uL Monocytes # 0.4 (0-1.0) k/uL Eosinophils # 0.2 (0-0.7) k/uL Basophils # 0.0 (0-0.2) k/uL Sodium 137 (137-145) mmol/L Potassium 4.0 (3.5-5.1) mmol/L Chloride 99 (98-107) mmol/L Carbon Dioxide 21 L (22-30) mmol/L Anion Gap 17 mmol/L BUN 21 H (7-17) mg/dL Creatinine 0.87 (0.52-1.04) mg/dL Est GFR (CKD-EPI)AfAm 87 (>60 ml/min/1.73 sqM) Est GFR (CKD-EPI)NonAf 75 (>60 ml/min/1.73 sqM) Glucose 251 H (74-99) mg/dL Calcium 9.2 (8.4-10.2) mg/dL Total Bilirubin 0.6 (0.2-1.3) mg/dL AST 25 (14-36) U/L ALT 23 (4-34) U/L Alkaline Phosphatase 86 (38-126) U/L Total Protein 7.5 (6.3-8.2) g/dL Albumin 4.3 (3.5-5.0) g/dL Urine Color Colorless Urine Appearance Cloudy H (Clear) Urine pH 5.0 (5.0-8.0) Ur Specific Ione 1.035 (1.001-1.035) Urine Protein Negative (Negative) Urine Glucose (UA) 4+ H (Negative) Urine Ketones Negative (Negative) Urine Blood Negative (Negative) Urine Nitrite Negative (Negative) Urine Bilirubin Negative (Negative) Urine Urobilinogen 2.0 (<2.0) mg/dL Ur Leukocyte Esterase Moderate H (Negative) Urine RBC <1 (0-5) /hpf Urine WBC 14 H (0-5) /hpf Ur Squamous Epith Cells 6 H (0-4) /hpf Urine Bacteria Rare H (None) /hpf Urine Mucus Rare H (None) /hpf Disposition <Brendan Alfredo - Last Filed: 09/08/23 21:50> Is patient prescribed a controlled substance at d/c from ED?: No <Clifford Staley - Last Filed: 09/09/23 00:46> Clinical Impression: Hyperglycemia, Urinary tract infection Disposition: HOME SELF-CARE Condition: Fair Instructions (If sedation given, give patient instructions): Urinary Tract I nfection in Women (ED) Prescriptions: Fluconazole [Diflucan] 150 mg PO ONCE #1 tab Nitrofurantoin Monohyd/M-Cryst [Macrobid] 100 mg PO Q12HR 7 Days #14 cap Referrals: Cuca Iqbal MD [Primary Care Provider] - 1-2 days
[2023-09-08 23:01] LABS: Basophils % (A) 0 %; Eosinophils # (A) 0.2 k/uL (0-0.7); Eosinophils % (A) 2 %; HCT 39.8 % (34.0-46.0); HGB 13.1 gm/dL (11.4-16.0); Lymphocytes # (A) 1.7 k/uL (1.0-4.8); Lymphocytes % (A) 18 %; MCH 26.6 pg (25.0-35.0); MCHC 32.9 g/dL (31.0-37.0); MCV 80.9 fL (80.0-100.0); Mean Platelet Volume 7.6; Monocytes # (A) 0.4 k/uL (0-1.0); Monocytes % (A) 5 %; Neutrophils # (A) 6.5 k/uL (1.3-7.7); Neutrophils % (A) 72 %; Platelet Count 191 k/uL (150-450); RBC 4.92 m/uL (3.80-5.40); RDW 15.5 % (11.5-15.5)
[2023-09-08 23:10] LABS: ALT 23 U/L (4-34); AST 25 U/L (14-36); African American GFR (CKD) 87 (>60 ml/min/1.73 sqM); Albumin 4.3 g/dL (3.5-5.0); Alkaline Phosphatase 86 U/L (38-126); Anion Gap 17 mmol/L; Blood Urea Nitrogen 21 mg/dL (7-17); Calcium 9.2 mg/dL (8.4-10.2); Carbon Dioxide 21 mmol/L (22-30); Chloride 99 mmol/L (98-107); Glucose 251 mg/dL (74-99); Non-African American GFR(CKD) 75 (>60 ml/min/1.73 sqM); Sodium 137 mmol/L (137-145); Total Bilirubin 0.6 mg/dL (0.2-1.3); Total Protein 7.5 g/dL (6.3-8.2)
[2023-09-09 00:28] LABS: Appearance,Urine Cloudy (Clear); Bacteria,Urine Rare /hpf; Bilirubin,Urine Negative (Negative); Blood,Urine Negative (Negative); Color,Urine Colorless; Glucose,Urine (UA) 4+ (Negative); Ketones,Urine Negative (Negative); Leukocyte Esterase,Urine Moderate (Negative); Mucus,Urine Rare /hpf; Nitrite,Urine Negative (Negative); Protein,Urine Negative (Negative); RBC,Urine <1 /hpf (0-5); Specific Gravity,Urine 1.035 (1.001-1.035); Squamous Epithelial Cell,Urine 6 /hpf (0-4); WBC,Urine 14 /hpf (0-5)
[2023-09-09 00:58] VITALS: BP 152/81; PULSE 92; TEMP 97.8
== END 2023-09-09 00:53 | disposition home or self-care (01) ==
LOC: EC 21:39
DX: N39.0 Urinary tract infection, site not specified (principal); E11.65 Type 2 diabetes mellitus with hyperglycemia; E11.36 Type 2 diabetes mellitus with diabetic cataract; I10 Essential (primary) hypertension; E78.5 Hyperlipidemia, unspecified; F32.A Depression, unspecified; F41.9 Anxiety disorder, unspecified; Z79.4 Long term (current) use of insulin; Z79.84 Long term (current) use of oral hypoglycemic drugs; Z79.899 Other long term (current) drug therapy; Z87.891 Personal history of nicotine dependence; Z88.0 Allergy status to penicillin; Z88.1 Allergy status to other antibiotic agents; Z88.5 Allergy status to narcotic agent; Z88.6 Allergy status to analgesic agent; Z88.8 Allergy status to other drugs, medicaments and biological substances; Z91.041 Radiographic dye allergy status; Z90.49 Acquired absence of other specified parts of digestive tract
CPT/HCPCS: 36415; 80053; 81001; 85025; 99283

== ENCOUNTER 2024-01-14 18:08 | Inpatient (IN) | payer OTHER ==
--- NOTE | 2024-01-14 18:54 | XR ---
EXAMINATION TYPE: XR chest 2V DATE OF EXAM: 01/14/2024 6:44 PM CLINICAL INDICATION:Female, 53 years old with history of Chest Pain; [facility] COMPARISON: 12/27/2018 TECHNIQUE: XR chest 2V Frontal and lateral views of the chest. FINDINGS: Lungs/Pleura: There is no evidence of pleural effusion, focal consolidation, or pneumothorax. Pulmonary vascularity: Unremarkable. Heart/mediastinum: Cardiomediastinal silhouette is unremarkable. Musculoskeletal: No acute osseous pathology. IMPRESSION: No acute cardiopulmonary disease/process.
[2024-01-14 18:59] LABS: Basophils % (A) 0 %; Eosinophils # (A) 0.2 k/uL (0-0.7); Eosinophils % (A) 3 %; HCT 41.7 % (34.0-46.0); HGB 13.4 gm/dL (11.4-16.0); Lymphocytes # (A) 1.3 k/uL (1.0-4.8); Lymphocytes % (A) 15 %; MCH 26.7 pg (25.0-35.0); MCHC 32.2 g/dL (31.0-37.0); MCV 82.7 fL (80.0-100.0); Mean Platelet Volume 7.7; Monocytes # (A) 0.3 k/uL (0-1.0); Monocytes % (A) 4 %; Neutrophils # (A) 6.5 k/uL (1.3-7.7); Neutrophils % (A) 76 %; Platelet Count 195 k/uL (150-450); RBC 5.04 m/uL (3.80-5.40); RDW 15.4 % (11.5-15.5); WBC 8.5 k/uL (3.8-10.6)
[2024-01-14 19:14] LABS: ALT 27 U/L (4-34); AST 31 U/L (14-36); African American GFR (CKD) >90 (>60 ml/min/1.73 sqM); Albumin 4.1 g/dL (3.5-5.0); Alkaline Phosphatase 89 U/L (38-126); Anion Gap 11 mmol/L; Blood Urea Nitrogen 17 mg/dL (7-17); Calcium 8.9 mg/dL (8.4-10.2); Carbon Dioxide 22 mmol/L (22-30); Chloride 102 mmol/L (98-107); Glucose 341 mg/dL (74-99); Lipase 217 U/L (23-300); Magnesium 1.7 mg/dL (1.6-2.3); Non-African American GFR(CKD) >90 (>60 ml/min/1.73 sqM); Potassium 3.8 mmol/L (3.5-5.1); Sodium 135 mmol/L (137-145); Total Bilirubin 0.5 mg/dL (0.2-1.3); Total Protein 7.1 g/dL (6.3-8.2)
[2024-01-14 19:25] LABS: Partial Thromboplastin Time 23.3 sec (22.0-30.0); Prothrombin Time 10.8 sec (10.0-12.5)
[2024-01-14] MEDS: fentaNYL (PF) 50 MCG/ML 2 ML AMP IVP STA (20:41)
[2024-01-14] MEDS: HEPARIN SODIUM 1,000 UN/ML (10ML VL) IV ONE (20:45)
[2024-01-14] MEDS: HEPARIN SOD,PORK IN 0.45% NACL 25,000 UNIT in 0.45% NACL 1 250ML.BAG IV SCH (20:45)
--- NOTE | 2024-01-14 20:47 | ED ---
Chest Pain HPI - General Chief Complaint: Chest Pain Stated Complaint: chest pain Time Seen by Provider: 01/14/24 18:20 Source: EMS Mode of arrival: EMS Limitations: no limitations - History of Present Illness Initial Comments: 53-year-old female with past medical history of coronary artery disease, diabetes, high cholesterol, hypertension who presents emergency department reporting chest pain. States that she has chest pain chronically however her symptoms of chest pain have been worse recently. Just prior to hospital arrival the patient had significant chest pain. She describes it as substernal without radiation. Has associated shortness of breath. Stent was placed exactly 1 year ago. She follows with Dr. Heredia. Patient has been taking her Effient as directed without any missed doses. She denies associated nausea, vomiting or diaphoresis. EMS did provide her with fentanyl and 4 chewable aspirins which she states did help her symptoms. No other alleviating, precipitating or modifying factors - Related Data Home Medications Medication Instructions Recorded Confirmed Montelukast [Singulair] 10 mg PO HS 04/16/17 01/14/24 Losartan Potassium [Cozaar] 25 mg PO DAILY 06/24/17 01/14/24 PARoxetine HCL [Paxil] 40 mg PO DAILY 12/27/18 01/14/24 Insulin Aspart [NovoLOG Flexpen] 15 units SQ AC-TID 04/30/22 01/14/24 Empagliflozin [Jardiance] 10 mg PO DAILY 01/13/23 01/14/24 Insulin Aspart [NovoLOG Flexpen] See Protocol SQ AC-TID 01/13/23 01/14/24 Insulin Glargine,Hum.rec.anlog 50 units SQ HS 01/13/23 01/14/24 [Lantus Solostar Pen] Omeprazole [PriLOSEC] 20 mg PO DAILY 01/13/23 01/14/24 oxyCODONE-APAP 5-325MG [Percocet 1 tab PO TID 01/13/23 01/14/24 5-325 mg] tiZANidine [Zanaflex] 4 mg PO HS 01/13/23 01/14/24 Atorvastatin [Lipitor] 40 mg PO HS 01/14/24 01/14/24 Butalb/APAP/Caff 50-325-40Mg 1 tab PO BID PRN 01/14/24 01/14/24 [Fioricet 50-325-40] Diclofenac Sodium Gel [Voltaren 1% 1 applic TOPICAL BID PRN 01/14/24 01/14/24 Gel] Ergocalciferol [Vitamin D2 (1250 1,250 mcg PO TU 01/14/24 01/14/24 Mcg = 71377 Iu)] Ezetimibe [Zetia] 10 mg PO HS 01/14/24 01/14/24 Fluticasone Nasal [place] [Flonase 2 spray EA NOSTRIL HS 01/14/24 01/14/24 Nasal [place]] Furosemide [Lasix] 20 mg PO DAILY 01/14/24 01/14/24 Isosorbide Mononitrate ER [Imdur] 30 mg PO DAILY 01/14/24 01/14/24 Levothyroxine Sodium 150 mcg PO DAILY 01/14/24 01/14/24 Metoprolol Succinate (ER) [Toprol 50 mg PO DAILY 01/14/24 01/14/24 Xl] Nystatin 100,000 Unit/gm Powd 1 applic TOPICAL BID 01/14/24 01/14/24 [Mycostatin Powder] Spironolactone [Aldactone] 25 mg PO DAILY 01/14/24 01/14/24 Tirzepatide [Mounjaro] 2.5 mg SQ TU 01/14/24 01/14/24 metFORMIN HCL 1,000 mg PO BID 01/14/24 01/14/24 Previous Rx's Medication Instructions Recorded Prasugrel [Effient] 10 mg PO DAILY #90 tablet 01/14/23 Allergies Allergy/AdvReac Type Severity Reaction Status Date / Time adhesive Allergy red skin Verified 01/14/24 21:11 Iodinated Contrast Media Allergy Itching Verified 01/14/24 21:11 [Iodinated Contrast Media - IV Dye] prednisone Allergy Rapid Verified 01/14/24 21:11 Heart Rate Sulfa (Sulfonamide Allergy Unknown Verified 01/14/24 21:11 Antibiotics) verapamil Allergy Anaphylaxis Verified 01/14/24 21:11 celecoxib [From Celebrex] AdvReac CAUSES GI Verified 01/14/24 21:11 BLEEDING cephalexin monohydrate AdvReac Vomiting Verified 01/14/24 21:11 [From Keflex] diphenhydramine AdvReac arm burned Verified 01/14/24 21:11 [From Benadryl] when given IV Penicillins AdvReac Nausea & Verified 01/14/24 21:11 Vomiting tramadol AdvReac Nausea & Verified 01/14/24 21:11 Vomiting Review of Systems ROS Statement: Those systems with pertinent positive or pertinent negative responses have been documented in the HPI. ROS Other: All systems not noted in ROS Statement are negative. Past Medical History Past Medical History: Asthma, Chest Pain / Angina, COPD, CVA/TIA, Diabetes Mellitus, Hyperlipidemia, Hypertension Additional Past Medical History / Comment(s): neuoropathy, RT CATARACT TIA History of Any Multi-Drug Resistant Organisms: None Reported Past Surgical History: Adenoidectomy, Cholecystectomy, Heart Catheterization With Stent, Tonsillectomy Additional Past Surgical History / Comment(s): D&C, carpal tunnel surgery left , LT ARM SX FOR "PINCHED NERVE", LT THUMB TRIGGER FINGER, rae neuroma removed l eft foot, heart cath 2015 , right ankle fx 01/2018 no surgery , LT CATARACT REMOVED WITH LENS IMPLANT thyroidectomy Past Anesthesia/Blood Transfusion Reactions: Previous Problems w/ Anesthesia, Motion Sickness Additional Past Anesthesia/Blood Transfusion Reaction / Comment(s): difficulty waking from anesthesia Past Psychological History: Anxiety, Depression, Panic Disorder Smoking Status: Former smoker Past Alcohol Use History: Occasional Past Drug Use History: None Reported - Past Family History Father Family Medical History: Cancer Additional Family Medical History / Comment(s): skin Mother Family Medical History: Diabetes Mellitus, Hypertension, Osteoarthritis (OA) Additional Family Medical History / Comment(s): MURMUR Sister(s) Family Medical History: Cancer Additional Family Medical History / Comment(s): ovarian General Exam Limitations: no limitations General appearance: alert, in no apparent distress Head exam: Present: atraumatic, normocephalic, normal inspection Eye exam: Present: normal appearance, PERRL, EOMI. Absent: scleral icterus, conjunctival injection, periorbital swelling ENT exam: Present: normal exam, mucous membranes moist Neck exam: Present: normal inspection. Absent: tenderness, meningismus, lymphadenopathy Respiratory exam: Present: normal lung sounds bilaterally. Absent: respiratory distress, wheezes, rales, rhonchi, stridor Cardiovascular Exam: Present: normal rhythm, tachycardia, normal heart sounds. Absent: systolic murmur, diastolic murmur, rubs, gallop, clicks GI/Abdominal exam: Present: soft, normal bowel sounds. Absent: distended, tenderness, guarding, rebound, rigid Extremities exam: Present: normal inspection, full ROM, normal capillary refill. Absent: tenderness, pedal edema, joint swelling, calf tenderness Back exam: Present: normal inspection Neurological exam: Present: alert, oriented X3, CN II-XII intact Psychiatric exam: Present: normal affect, normal mood Skin exam: Present: warm, dry, intact, normal color. Absent: rash Course Vital Signs 01/14/24 01/14/24 01/15/24 18:16 20:30 00:00 Temperature Pulse Rate 121 H 125 H 110 H Respiratory 22 18 118 H Rate Blood Pressure 142/87 127/85 121/88 O2 Sat by Pulse 94 L 96 96 Oximetry 01/15/24 01/15/24 01/15/24 04:00 06:13 08:54 Temperature 97.8 F Pulse Rate 84 87 96 Respiratory 18 18 17 Rate Blood Pressure 75/52 102/62 117/72 O2 Sat by Pulse 98 95 98 Oximetry 01/15/24 01/15/24 01/15/24 10:20 13:01 15:03 Temperature 98.0 F 98.2 F Pulse Rate 87 69 83 Respiratory 18 17 17 Rate Blood Pressure 126/83 122/79 114/70 O2 Sat by Pulse 99 99 100 Oximetry Chest Pain MDM - MDM Was pt. sent in by a medical professional or institution (LUANNE Retana, PROCESS CONSULTANT, urgent care, hospital, or fpc...) When possible be specific @ -No Did you speak to anyone other than the patient for history (EMS, parent, family, police, friend...)? What history was obtained from this source @ -Spoke with EMS for history Did you review nursing and triage notes (agree or disagree)? Why? @ -I reviewed and agree with nursing and triage notes Were old charts reviewed (outside hosp., previous admission, EMS record, old EKG, old radiological studies, urgent care reports/EKG's, fpc records)? Report findings @ -I reviewed the patient's heart cath from January 2023 Differential Diagnosis (chest pain, altered mental status, abdominal pain women, abdominal pain men, vaginal bleeding, weakness, fever, dyspnea, syncope, headache, dizziness, GI bleed, back pain, seizure, CVA, palpatations, mental health, musculoskeletal)? @ -Differential Chest Pain: Stable Angina, Unstable Angina, STEMI, NSTEMI Aortic Dissection, Pneumothorax, Musculoskeletal, Esophageal Spasm GERD, Cholecystitis, Pancreatitis, Zoster, this is not meant to be an all-inclusive list. EKG interpreted by me (3pts min.). @ - First EKG completed at 1822 demonstrates sinus tachycardia with a rate of 123. DC interval 155. QRS 86. QTc of 410. No acute ST segment elevations or depressions Repeat EKG which was done at 1953 while patient is having active chest pain demonstrates ST depression in 1 and aVL. There is a Q wave in lead III with some hyperacuity to aVF ST segments X-rays interpreted by me (1pt min.). @ -Yes and demonstrates no acute process CT interpreted by me (1pt min.). @ -None done U/S interpreted by me (1pt. min.). @ -None done What testing was considered but not performed or refused? (CT, X-rays, U/S, labs)? Why? @ -None What meds were considered but not given or refused? Why? @ -None Did you discuss the management of the patient with other professionals (professionals i.e. DrJalyn, PA, PROCESS CONSULTANT, lab, RT, psych nurse, social sciences research scientist, bag machine tender, teacher, training systems officer, casey saw operator)? Give summary @ -Spoke with Dr. العراقي as patient does have EKG changes with active symptoms Was smoking cessation discussed for >3mins.? @ -No Was critical care preformed (if so, how long)? @ -Yes, 35 minutes for heparinization of the patient Were there social determinants of health that impacted care today? How? (Homelessness, low income, unemployed, alcoholism, drug addiction, transportation, low edu. Level, literacy, decrease access to med. care, snf, rehab)? @ -No Was there de-escalation of care discussed even if they declined (Discuss DNR or withdrawal of care, Hospice)? DNR status @ -No What co-morbidities impacted this encounter? (DM, HTN, Smoking, COPD, CAD, Cancer, CVA, ARF, Chemo, Hep., AIDS, mental health diagnosis, sleep apnea, morbid obesity)? @ -Hypertension, hyperlipidemia, diabetes, coronary disease Was patient admitted / discharged? Hospital course, mention meds given and route, prescriptions, significant lab abnormalities, going to OR and other pertinent info. @ -Upon arrival patient was seen and evaluated in room 6. Thorough history and physical exam was performed. Patient placed on continuous pulse ox and cardiac monitoring. Twelve-lead EKG is obtained. Laboratory studies are conducted. Chest x-ray was performed. Patient does admit to having active chest pain after she ambulates to the bathroom. I did repeated EKG which does demonstrate 1 and aVL depression as well as a Q wave in lead III. Because of the EKG changes with active symptoms I did call and speak with Dr. العراقي. Patient will be heparinized at this time. I will make her n.p.o. at midnight. She will have further cardiology consultation at that time. I spoke with Cara from [facility] who will admit the patient Undiagnosed new problem with uncertain prognosis? @ -Yes Drug Therapy requiring intensive monitoring for toxicity (Heparin, Nitro, Insulin, Cardizem)? @ -No Were any procedures done? @ -No Diagnosis/symptom? @ -Acute chest pain, EKG changes, possible ACS Acute, or Chronic, or Acute on Chronic? @ -Acute Uncomplicated (without systemic symptoms) or Complicated (systemic symptoms)? @ -Complicated Side effects of treatment? @ -No Exacerbation, Progression, or Severe Exacerbation? @ -No Poses a threat to life or bodily function? How? (Chest pain, [place], [place], pneumonia, PE, COPD, DKA, ARF, appy, cholecystitis, CVA, Diverticulitis, Homicidal, Suicidal, threat to staff... and all critical care pts) @ -Yes as patient has active EKG changes Disposition Clinical Impression: Chest pain, Unstable angina, Abnormal EKG Disposition: ADMITTED IP TO THIS [facility] Condition: Serious Is patient prescribed a controlled substance at d/c from ED?: No Time of Disposition: 20:51 Decision to Admit Reason: Admit from EC Decision Date: 01/14/24 Decision Time: 20:51
[2024-01-14] MEDS ORDERED: NALOXONE 0.4 MG/ML 1 ML VIAL IV PRN (20:51)
[2024-01-14 21:02] LABS: Glucose,Whole Blood 249 mg/dL (70-110)
[2024-01-15] MEDS: metFORMIN 500 MG TAB PO SCH (00:22)
[2024-01-15] MEDS: tiZANidine 4 MG TAB PO SCH (00:22)
[2024-01-15] MEDS: oxyCODONE-APAP 5-325MG 1 EACH TAB PO SCH (00:22)
[2024-01-15] MEDS: ATORVASTATIN 40 MG TAB PO SCH (00:23)
[2024-01-15] MEDS: EZETIMIBE 10 MG TAB PO SCH (00:23)
[2024-01-15] MEDS: MONTELUKAST 10 MG TAB PO SCH (00:23)
[2024-01-15] MEDS: FLUTICASONE NASAL 50MCG/SPRAY 16GM BTL EA NOSTRIL SCH (00:25)
[2024-01-15] MEDS: INSULIN DETEMIR (LEVEMIR) 100 UNIT/ML SYR SQ SCH ×2 (00:29→23:23)
[2024-01-15 00:30] LABS: Glucose,Whole Blood 227 mg/dL (70-110)
[2024-01-15 04:12] LABS: Basophils % (A) 0 %; Eosinophils # (A) 0.2 k/uL (0-0.7); Eosinophils % (A) 3 %; HCT 38.1 % (34.0-46.0); Lymphocytes # (A) 1.8 k/uL (1.0-4.8); Lymphocytes % (A) 23 %; MCH 26.1 pg (25.0-35.0); MCHC 31.5 g/dL (31.0-37.0); MCV 82.9 fL (80.0-100.0); Mean Platelet Volume 7.6; Monocytes # (A) 0.3 k/uL (0-1.0); Monocytes % (A) 5 %; Neutrophils % (A) 67 %; Platelet Count 154 k/uL (150-450); RDW 15.4 % (11.5-15.5); WBC 7.5 k/uL (3.8-10.6)
[2024-01-15 04:27] LABS: African American GFR (CKD) 74 (>60 ml/min/1.73 sqM); Anion Gap 10 mmol/L; Blood Urea Nitrogen 20 mg/dL (7-17); Calcium 8.6 mg/dL (8.4-10.2); Carbon Dioxide 22 mmol/L (22-30); Chloride 102 mmol/L (98-107); Glucose 264 mg/dL (74-99); Non-African American GFR(CKD) 65 (>60 ml/min/1.73 sqM); Potassium 3.6 mmol/L (3.5-5.1); Sodium 134 mmol/L (137-145)
[2024-01-15 04:40] LABS: Partial Thromboplastin Time 32.9 sec (22.0-30.0); Prothrombin Time 11.3 sec (10.0-12.5)
[2024-01-15] MEDS: HEPARIN SODIUM 1,000 UN/ML (10ML VL) IV PRN (05:03)
[2024-01-15] MEDS: LEVOTHYROXINE 75 MCG TAB PO SCH (06:19)
[2024-01-15 07:16] LABS: Glucose,Whole Blood 224 mg/dL (70-110)
[2024-01-15] MEDS: INSULIN ASPART (NovoLOG) 100 UNIT/ML VIAL SQ SCH (07:37)
[2024-01-15] MEDS: PRASUGREL 10 MG TAB PO SCH (08:54)
[2024-01-15] MEDS: ISOSORBIDE MONONITRATE ER 30 MG TAB.ER.24H PO SCH (08:55)
[2024-01-15] MEDS: LOSARTAN 25 MG TAB PO SCH (08:55)
[2024-01-15] MEDS: FUROSEMIDE 20 MG TAB PO SCH (08:55)
[2024-01-15] MEDS: DAPAGLIFLOZIN PROPANEDIOL 5 MG TABLET PO SCH (08:56)
[2024-01-15] MEDS: METOPROLOL SUCCINATE (ER) 50 MG TAB.ER.24H PO SCH (08:56)
[2024-01-15] MEDS: PANTOPRAZOLE 40 MG TABLET PO SCH (08:57)
[2024-01-15] MEDS: SPIRONOLACTONE 25 MG TAB PO SCH (08:57)
[2024-01-15] MEDS: PARoxetine 20 MG TAB PO SCH (08:57)
[2024-01-15] MEDS ORDERED: BUTALB/APAP/CAFF 50-325-40MG TAB PO PRN (09:00)
[2024-01-15] MEDS ORDERED: AMINOPHYLLINE 500 MG/20 ML VIAL IV PRN (10:12)
[2024-01-15] MEDS ORDERED: REGADENOSON 0.4 MG/5 ML SYRINGE IV PRN (10:12)
[2024-01-15] MEDS ORDERED: CAFFEINE CITRATE 60 MG/3 ML VIAL IV PRN (10:12)
--- NOTE | 2024-01-15 10:16 | P.CRDCN ---
History of Present Illness Consult date: 01/15/24 Reason for Consult (text): Chest pain, unstable angina History of present illness: History of present illness: This is a 53-year-old female patient of Dr. STUART Beck with past medical history of diabetes mellitus type 2, hypertension, hyperlipidemia, coronary artery disease status post PCI of the LAD, moderate aortic stenosis, family history of premature coronary artery disease, tobacco use and dependence. We have been asked to evaluate the patient for chest pain and unstable angina. Patient states that she developed chest pain yesterday at rest, not with activiity. Pain was in the upper mid chest with radiation to the left back. Pain was somewhat simlar to previous pain requiring stent. She also broke out into a sweat. She called EMS and HR was 130s and BP 181/101. She received fenantyl and pain resolved for about 15-20 minutes. No chest pain at this time. Pain gradually went away. She states she walked to the in the ER and experienced sever chest pain. Patient has been started on a heparin drip. Patient is seen today in the emergency center waiting for bed on the cardiac stepdown unit. EKG sinus tachycardia 123 bpm, sinus tachycardia 119 bpm Chest x-ray: No acute process CBC within normal limits. Sodium 134, potassium 3.6, BUN 20 creatinine 0.99. Troponin negative x 3. Home cardiac medications: Atorvastatin 40 mg at bedtime, Jardiance 10 mg daily, Zetia 10 mg at bedtime, Lasix 20 mg daily, Imdur 30 mg daily, losartan 25 mg daily, Toprol-XL 50 mg daily, Effient 10 mg daily, Aldactone 25 mg daily, patient also on Mounjaro, levothyroxine. Cardiac catheterization performed 01/13/2023 revealed severe disease involving the mid LAD and subsequently underwent stenting of the mid LAD by Dr. Sommer. Cardiac catheterization performed 10/06/2023 at [facility] revealed elevated filling pressures 24 mmHg, moderate AAS with pullback of 36 mmHg, widely patent mid LAD at the previously stented portion. No significant disease of the left main, RCA or circumflex. Echocardiogram performed on 10/05/2023 revealed EF of 55%, moderate to severe with mean 33 mmHg. Review Of Systems: At the time of my exam: CONSTITUTIONAL: Denies fever or chills. HEENT: Denies blurred vision, vision changes, or eye pain. Denies hemoptysis CARDIOVASCULAR: Denies chest pain. Denies orthopnea. Denies PND. Denies palpitations RESPIRATORY: Denies shortness of breath. GASTROINTESTINAL: Denies abdominal pain. Denies nausea or vomiting. HEMATOLOGIC: Denies bleeding disorders. GENITOURINARY: Denies any blood in urine. SKIN: Denies pruitis. Denies rash. Physical examination: Gen: This is a 53-year-old female in no acute distress VS: reviewed, blood pressure 117/72, heart rate 96, pulse ox 98% on room air. HEENT: Head is atraumatic, normocephalic. Pupils equal, round. Sclerae is anicteric. NECK: Supple. No JVD. LUNGS: Clear to auscultation. No wheezes or rhonchi. No intercostal retractions. HEART: Regular rate and rhythm. 2/6 systolic ejection murmur at the base. ABDOMEN: Soft No tenderness. EXTREMITIES: No pedal edema. No calf tenderness. NEUROLOGICAL: Patient is awake, alert and oriented x3. Assessment: Chest pain possible [place], possibly related to uncontrolled HTN Acute coronary syndrome ruled out with negative troponins History of coronary artery disease Hypertension Hyperlipidemia Diabetes mellitus type 2 Plan: Resume patient's home cardiac medications Schedule patient for Lexiscan stress test Obtain 2-D echocardiogram and Doppler study to assess cardiac structure and function Further recommendations to follow based upon clinical course Thank you kindly for this consultation. Nurse practitioner note has been reviewed, I agree with documented findings and plan of care. Patient was seen and examined. Past Medical History Past Medical History: Asthma, Chest Pain / Angina, COPD, CVA/TIA, Diabetes Mellitus, Hyperlipidemia, Hypertension Additional Past Medical History / Comment(s): neuoropathy, RT CATARACT TIA History of Any Multi-Drug Resistant Organisms: None Reported Past Surgical History: Adenoidectomy, Cholecystectomy, Heart Catheterization With Stent, Tonsillectomy Additional Past Surgical History / Comment(s): D&C, carpal tunnel surgery left , LT ARM SX FOR "PINCHED NERVE", LT THUMB TRIGGER FINGER, rae neuroma removed left foot, heart cath 2015 , right ankle fx 01/2018 no surgery , LT CATARACT REMOVED WITH LENS IMPLANT thyroidectomy Past Anesthesia/Blood Transfusion Reactions: Previous Problems w/ Anesthesia, Motion Sickness Additional Past Anesthesia/Blood Transfusion Reaction / Comment(s): difficulty waking from anesthesia Past Psychological History: Anxiety, Depression, Panic Disorder Smoking Status: Former smoker Past Alcohol Use History: Occasional Past Drug Use History: None Reported - Past Family History Father Family Medical History: Cancer Additional Family Medical History / Comment(s): skin Mother Family Medical History: Diabetes Mellitus, Hypertension, Osteoarthritis (OA) Additional Family Medical History / Comment(s): MURMUR Sister(s) Family Medical History: Cancer Additional Family Medical History / Comment(s): ovarian Medications and Allergies Home Medications Medication Instructions Recorded Confirmed Type Montelukast [Singulair] 10 mg PO HS 04/16/17 01/14/24 History Losartan Potassium [Cozaar] 25 mg PO DAILY 06/24/17 01/14/24 History PARoxetine HCL [Paxil] 40 mg PO DAILY 12/27/18 01/14/24 History Insulin Aspart [NovoLOG Flexpen] 15 units SQ AC-TID 04/30/22 01/14/24 History Empagliflozin [Jardiance] 10 mg PO DAILY 01/13/23 01/14/24 History Insulin Aspart [NovoLOG Flexpen] See Protocol SQ AC-TID 01/13/23 01/14/24 History Insulin Glargine,Hum.rec.anlog 50 units SQ HS 01/13/23 01/14/24 History [Lantus Solostar Pen] Omeprazole [PriLOSEC] 20 mg PO DAILY 01/13/23 01/14/24 History oxyCODONE-APAP 5-325MG [Percocet 1 tab PO TID 01/13/23 01/14/24 History 5-325 mg] tiZANidine [Zanaflex] 4 mg PO HS 01/13/23 01/14/24 History Prasugrel [Effient] 10 mg PO DAILY #90 tablet 01/14/23 01/14/24 Rx Atorvastatin [Lipitor] 40 mg PO HS 01/14/24 01/14/24 History Butalb/APAP/Caff 50-325-40Mg 1 tab PO BID PRN 01/14/24 01/14/24 History [Fioricet 50-325-40] Diclofenac Sodium Gel [Voltaren 1% 1 applic TOPICAL BID PRN 01/14/24 01/14/24 History Gel] Ergocalciferol [Vitamin D2 (1250 1,250 mcg PO TU 01/14/24 01/14/24 History Mcg = 77498 Iu)] Ezetimibe [Zetia] 10 mg PO HS 01/14/24 01/14/24 History Fluticasone Nasal [place] [Flonase 2 spray EA NOSTRIL HS 01/14/24 01/14/24 History Nasal [place]] Furosemide [Lasix] 20 mg PO DAILY 01/14/24 01/14/24 History Isosorbide Mononitrate ER [Imdur] 30 mg PO DAILY 01/14/24 01/14/24 History Levothyroxine Sodium 150 mcg PO DAILY 01/14/24 01/14/24 History Metoprolol Succinate (ER) [Toprol 50 mg PO DAILY 01/14/24 01/14/24 History Xl] Nystatin 100,000 Unit/gm Powd 1 applic TOPICAL BID 01/14/24 01/14/24 History [Mycostatin Powder] Spironolactone [Aldactone] 25 mg PO DAILY 01/14/24 01/14/24 History Tirzepatide [Mounjaro] 2.5 mg SQ TU 01/14/24 01/14/24 History metFORMIN HCL 1,000 mg PO BID 01/14/24 01/14/24 History Allergies Allergy/AdvReac Type Severity Reaction Status Date / Time adhesive Allergy red skin Verified 01/14/24 21:11 Iodinated Contrast Media Allergy Itching Verified 01/14/24 21:11 [Iodinated Contrast Media - IV Dye] prednisone Allergy Rapid Verified 01/14/24 21:11 Heart Rate Sulfa (Sulfonamide Allergy Unknown Verified 01/14/24 21:11 Antibiotics) verapamil Allergy Anaphylaxis Verified 01/14/24 21:11 celecoxib [From Celebrex] AdvReac CAUSES GI Verified 01/14/24 21:11 BLEEDING cephalexin monohydrate AdvReac Vomiting Verified 01/14/24 21:11 [From Keflex] diphenhydramine AdvReac arm burned Verified 01/14/24 21:11 [From Benadryl] when given IV Penicillins AdvReac Nausea & Verified 01/14/24 21:11 Vomiting tramadol AdvReac Nausea & Verified 01/14/24 21:11 Vomiting Physical Exam Vitals: Vital Signs Temp Pulse Resp BP Pulse Ox 01/15/24 08:54 97.8 F 96 17 117/72 98 01/15/24 06:13 87 18 102/62 95 01/15/24 04:00 84 18 75/52 98 01/15/24 00:00 110 H 118 H 121/88 96 01/14/24 20:30 125 H 18 127/85 96 01/14/24 18:16 121 H 22 142/87 94 L Intake and Output 01/14/24 01/15/24 01/15/24 22:59 06:59 14:59 Intake Total 82.492 Balance 82.492 Intake: Intake, IV Titration 82.492 Amount Heparin Sod,Pork in 0.45% 82.492 NaCl 25,000 unit In 0.45 % NaCl 1 250ml.bag @ 10. 02 UNITS/KG/HR 9.999 mls/ hr IV .Q24H [facility] Rx#: [id number] Other: Weight 99.79 kg Results 01/15/24 03:36 01/15/24 03:36 Cardiac Enzymes 01/14/24 01/14/24 01/14/24 Range/Units 18:40 18:40 21:06 AST 31 (14-36) U/L Troponin I <0.012 <0.012 (0.000-0.034) ng/mL 01/15/24 Range/Units 03:36 AST (14-36) U/L Troponin I <0.012 (0.000-0.034) ng/mL Coagulation 01/14/24 01/15/24 Range/Units 18:40 03:36 PT 10.8 11.3 (10.0-12.5) sec APTT 23.3 32.9 H (22.0-30.0) sec CBC 01/14/24 01/15/24 Range/Units 18:40 03:36 WBC 8.5 7.5 (3.8-10.6) k/uL RBC 5.04 4.60 (3.80-5.40) m/uL Hgb 13.4 12.0 (11.4-16.0) gm/dL Hct 41.7 38.1 (34.0-46.0) % Plt Count 195 154 (150-450) k/uL Comprehensive Metabolic Panel 01/14/24 01/15/24 Range/Units 18:40 03:36 Sodium 135 L 134 L (137-145) mmol/L Potassium 3.8 3.6 (3.5-5.1) mmol/L Chloride 102 102 (98-107) mmol/L Carbon Dioxide 22 22 (22-30) mmol/L BUN 17 20 H (7-17) mg/dL Creatinine 0.75 0.99 (0.52-1.04) mg/dL Glucose 341 H 264 H (74-99) mg/dL Calcium 8.9 8.6 (8.4-10.2) mg/dL AST 31 (14-36) U/L ALT 27 (4-34) U/L Alkaline Phosphatase 89 (38-126) U/L Total Protein 7.1 (6.3-8.2) g/dL Albumin 4.1 (3.5-5.0) g/dL Current Medications Generic Name Dose Route Start Last Admin Trade Name Freq PRN Reason Stop Dose Admin Acetaminophen/Butalbital/Caffeine 1 each 01/15/24 09:00 Butalb/Apap/Caff 50-325-40mg Tab PO BID PRN Pain Atorvastatin Calcium 40 mg 01/14/24 23:45 01/15/24 00:23 Atorvastatin 40 Mg Tab PO 40 mg HS MICHAEL Administration Dapagliflozin 5 mg 01/15/24 09:00 01/15/24 08:59 Dapagliflozin Propanediol 5 Mg Tablet PO Not Given DAILY MICHAEL Ezetimibe 10 mg 01/14/24 23:45 01/15/24 00:23 Ezetimibe 10 Mg Tab PO 10 mg HS MICHAEL Administration Fluticasone Propionate 2 spray 01/14/24 23:45 01/15/24 00:25 Fluticasone 50mcg/[place] Nasal 16gm EA NOSTRIL Not Given HS MICHAEL Furosemide 20 mg 01/15/24 09:00 01/15/24 08:55 Furosemide 20 Mg Tab PO 20 mg DAILY MICHAEL Administration Heparin Sodium (Porcine) 0 unit 01/14/24 20:14 01/15/24 05:03 Heparin Sodium 1,000 Un/Ml (10ml Vl) IV 4,000 unit PER PROTOCOL PRN Administration Low PTT Protocol Heparin Sodium/Sodium Chloride 250 mls @ 9.999 mls/hr 01/14/24 20:15 01/15/24 05:00 25,000 unit/ Sodium Chloride IV 13 units/kg/hr .Q24H MICHAEL 12.973 mls/hr Titration Protocol 10.02 UNITS/KG/HR Insulin Aspart 15 unit 01/15/24 07:30 01/15/24 07:37 Insulin Aspart (Novolog) 100 Unit/Ml Vial SQ Not Given AC-TID MICHAEL Insulin Detemir 50 unit 01/14/24 23:45 01/15/24 00:30 Insulin Detemir (Levemir) 100 Unit/Ml Syr SQ Not Given HS MICHAEL Isosorbide Mononitrate 30 mg 01/15/24 09:00 01/15/24 08:55 Isosorbide Mononitrate Er 30 Mg Tab.Er.24h PO 30 mg DAILY MICHAEL Administration Levothyroxine Sodium 150 mcg 01/15/24 06:30 01/15/24 06:19 Levothyroxine 75 Mcg Tab PO 150 mcg DAILY@0630 MICHAEL Administration Losartan Potassium 25 mg 01/15/24 09:00 01/15/24 08:55 Losartan 25 Mg Tab PO 25 mg DAILY MICHAEL Administration Metformin HCl 1,000 mg 01/14/24 23:30 01/15/24 08:55 Metformin 500 Mg Tab PO 1,000 mg BID MICHAEL Administration Metoprolol Succinate 50 mg 01/15/24 09:00 01/15/24 08:56 Metoprolol Succinate (Er) 50 Mg Tab.Er.24h PO 50 mg DAILY MICHAEL Administration Montelukast Sodium 10 mg 01/14/24 23:30 01/15/24 00:23 Montelukast 10 Mg Tab PO 10 mg HS MICHAEL Administration Morphine Sulfate 4 mg 01/14/24 20:51 Morphine Sulfate 4 Mg/Ml Syringe IV Q4HR PRN Severe Pain (Scale 7 to 10) Naloxone HCl 0.2 mg 01/14/24 20:51 Naloxone 0.4 Mg/Ml 1 Ml Vial IV Q2M PRN Opioid Reversal Oxycodone/Acetaminophen 1 each 01/14/24 23:45 01/15/24 00:22 Oxycodone-Apap 5-325mg 1 Each Tab PO 1 each TID MICHAEL Administration Pantoprazole Sodium 40 mg 01/15/24 09:00 01/15/24 08:57 Pantoprazole 40 Mg Tablet PO 40 mg DAILY MICHAEL Administration Paroxetine HCl 40 mg 01/15/24 09:00 01/15/24 08:57 Paroxetine 20 Mg Tab PO 40 mg DAILY MICHAEL Administration Prasugrel 10 mg 01/15/24 09:00 01/15/24 08:54 Prasugrel 10 Mg Tab PO 10 mg DAILY MICHAEL Administration Spironolactone 25 mg 01/15/24 09:00 01/15/24 08:57 Spironolactone 25 Mg Tab PO 25 mg DAILY MICHAEL Administration Tizanidine HCl 4 mg 01/14/24 23:30 01/15/24 00:22 Tizanidine 4 Mg Tab PO 4 mg HS MICHAEL Administration Intake and Output 01/14/24 01/15/24 01/15/24 22:59 06:59 14:59 Intake Total 82.492 Balance 82.492 Intake: Intake, IV Titration 82.492 Amount Heparin Sod,Pork in 0.45% 82.492 NaCl 25,000 unit In 0.45 % NaCl 1 250ml.bag @ 10. 02 UNITS/KG/HR 9.999 mls/ hr IV .Q24H [facility] Rx#: [id number] Other: Weight 99.79 kg 01/15/24 03:36 01/15/24 03:36
[2024-01-15 13:05] LABS: Glucose,Whole Blood 264 mg/dL (70-110)
[2024-01-15 13:16] LABS: Basophils % (A) 0 %; Eosinophils # (A) 0.3 k/uL (0-0.7); Eosinophils % (A) 3 %; HCT 40.9 % (34.0-46.0); HGB 12.8 gm/dL (11.4-16.0); Lymphocytes # (A) 1.1 k/uL (1.0-4.8); Lymphocytes % (A) 12 %; MCHC 31.2 g/dL (31.0-37.0); MCV 83.4 fL (80.0-100.0); Mean Platelet Volume 7.4; Monocytes # (A) 0.4 k/uL (0-1.0); Monocytes % (A) 5 %; Neutrophils # (A) 7.4 k/uL (1.3-7.7); Neutrophils % (A) 79 %; Platelet Count 184 k/uL (150-450); RBC 4.91 m/uL (3.80-5.40); RDW 15.5 % (11.5-15.5); WBC 9.4 k/uL (3.8-10.6)
[2024-01-15 16:21] LABS: Glucose,Whole Blood 198 mg/dL (70-110)
--- NOTE | 2024-01-15 16:21 | NM ---
EXAMINATION TYPE: NM stress lexiscan cardiolite DATE OF EXAM: 01/15/2024 COMPARISON: NONE CLINICAL INDICATION: Female, 53 years old with history of chest pain; TECHNIQUE: After the intravenous administration of 10.8 mCi Tc 99m Sestamibi - Cardiolite resting SP ECT images acquired 45 minutes post injection. The patient received 0.4mg Lexiscan, 25.6 mCi Tc 99m Sestamibi - Stress images obtained [address] injection FINDINGS: Review of stress and rest SPECT images demonstrates no distinct perfusion abnormality. Gated analysi s shows normal wall motion with an estimated left ventricular ejection fraction of 60 %. TID is uppe r limits of normal at 1.14. IMPRESSION: No scintigraphic evidence for reversible ischemia.
--- NOTE | 2024-01-15 16:47 | P.HPIM ---
History of Present Illness H&P Date: 01/15/24 Chief Complaint: Chest pain 53-year-old female patient, history of diabetes mellitus type 2, hypertension, hyperlipidemia, coronary artery disease status post PCI of the LAD, moderate aortic stenosis. Patient states that she developed chest pain yesterday at rest, not with activiity. Pain was in the upper mid chest with radiation to the left back. Pain was somewhat simlar to previous pain requiring stent. She also broke out into a sweat. She called EMS and HR was 130s and BP 181/101. She received fenantyl and pain resolved for about 15-20 minutes. No chest pain at this time. Pain gradually went away. She states she walked to the BR in the ER and experienced sever chest pain. Patient has been started on a heparin drip. Patient is seen today in the emergency center waiting for bed on the cardiac stepdown unit. EKG sinus tachycardia 123 bpm, sinus tachycardia 119 bpm Chest x-ray: No acute process Echocardiogram performed on 10/05/2023 revealed EF of 55%, moderate to severe with mean 33 mmHg. Review of Systems REVIEW OF SYSTEMS: CONSTITUTIONAL: No fever, no malaise, no fatigue. HEENT: No recent visual problems or hearing problems. Denied any sore throat. CARDIOVASCULAR: No chest pain, orthopnea, PND, no palpitations, no syncope. PULMONARY: No shortness of breath, no cough, no hemoptysis. GASTROINTESTINAL: No diarrhea, no nausea, no vomiting, no abdominal pain. NEUROLOGICAL: No headaches, no weakness, no numbness. HEMATOLOGICAL: Denies any bleeding or petechiae. GENITOURINARY: Denies any burning micturition, frequency, or urgency. MUSCULOSKELETAL/RHEUMATOLOGICAL: Denies any joint pain, swelling, or any muscle pain. ENDOCRINE: Denies any polyuria or polydipsia. The rest of the 14-point review of systems is negative. Past Medical History Past Medical History: Asthma, Chest Pain / Angina, COPD, CVA/TIA, Diabetes Mellitus, Hyperlipidemia, Hypertension Additional Past Medical History / Comment(s): neuoropathy, RT CATARACT TIA History of Any Multi-Drug Resistant Organisms: None Reported Past Surgical History: Adenoidectomy, Cholecystectomy, Heart Catheterization With Stent, Tonsillectomy Additional Past Surgical History / Comment(s): D&C, carpal tunnel surgery left , LT ARM SX FOR "PINCHED NERVE", LT THUMB TRIGGER FINGER, rae neuroma removed left foot, heart cath 2015 , right ankle fx 01/2018 no surgery , LT CATARACT REMOVED WITH LENS IMPLANT thyroidectomy Past Anesthesia/Blood Transfusion Reactions: Previous Problems w/ Anesthesia, Motion Sickness Additional Past Anesthesia/Blood Transfusion Reaction / Comment(s): difficulty waking from anesthesia Past Psychological History: Anxiety, Depression, Panic Disorder Smoking Status: Former smoker Past Alcohol Use History: Occasional Past Drug Use History: None Reported - Past Family History Father Family Medical History: Cancer Additional Family Medical History / Comment(s): skin Mother Family Medical History: Diabetes Mellitus, Hypertension, Osteoarthritis (OA) Additional Family Medical History / Comment(s): MURMUR Sister(s) Family Medical History: Cancer Additional Family Medical History / Comment(s): ovarian Medications and Allergies Home Medications Medication Instructions Recorded Confirmed Type Montelukast [Singulair] 10 mg PO HS 04/16/17 01/14/24 History Losartan Potassium [Cozaar] 25 mg PO DAILY 06/24/17 01/14/24 History PARoxetine HCL [Paxil] 40 mg PO DAILY 12/27/18 01/14/24 History Insulin Aspart [NovoLOG Flexpen] 15 units SQ AC-TID 04/30/22 01/14/24 History Empagliflozin [Jardiance] 10 mg PO DAILY 01/13/23 01/14/24 History Insulin Aspart [NovoLOG Flexpen] See Protocol SQ AC-TID 01/13/23 01/14/24 History Insulin Glargine,Hum.rec.anlog 50 units SQ HS 01/13/23 01/14/24 History [Lantus Solostar Pen] Omeprazole [PriLOSEC] 20 mg PO DAILY 01/13/23 01/14/24 History oxyCODONE-APAP 5-325MG [Percocet 1 tab PO TID 01/13/23 01/14/24 History 5-325 mg] tiZANidine [Zanaflex] 4 mg PO HS 01/13/23 01/14/24 History Prasugrel [Effient] 10 mg PO DAILY #90 tablet 01/14/23 01/14/24 Rx Atorvastatin [Lipitor] 40 mg PO HS 01/14/24 01/14/24 History Butalb/APAP/Caff 50-325-40Mg 1 tab PO BID PRN 01/14/24 01/14/24 History [Fioricet 50-325-40] Diclofenac Sodium Gel [Voltaren 1% 1 applic TOPICAL BID PRN 01/14/24 01/14/24 History Gel] Ergocalciferol [Vitamin D2 (1250 1,250 mcg PO TU 01/14/24 01/14/24 History Mcg = 29107 Iu)] Ezetimibe [Zetia] 10 mg PO HS 01/14/24 01/14/24 History Fluticasone Nasal [place] [Flonase 2 spray EA NOSTRIL HS 01/14/24 01/14/24 History Nasal [place]] Furosemide [Lasix] 20 mg PO DAILY 01/14/24 01/14/24 History Isosorbide Mononitrate ER [Imdur] 30 mg PO DAILY 01/14/24 01/14/24 History Levothyroxine Sodium 150 mcg PO DAILY 01/14/24 01/14/24 History Metoprolol Succinate (ER) [Toprol 50 mg PO DAILY 01/14/24 01/14/24 History Xl] Nystatin 100,000 Unit/gm Powd 1 applic TOPICAL BID 01/14/24 01/14/24 History [Mycostatin Powder] Spironolactone [Aldactone] 25 mg PO DAILY 01/14/24 01/14/24 History Tirzepatide [Mounjaro] 2.5 mg SQ TU 01/14/24 01/14/24 History metFORMIN HCL 1,000 mg PO BID 01/14/24 01/14/24 History Allergies Allergy/AdvReac Type Severity Reaction Status Date / Time adhesive Allergy red skin Verified 01/14/24 21:11 Iodinated Contrast Media Allergy Itching Verified 01/14/24 21:11 [Iodinated Contrast Media - IV Dye] prednisone Allergy Rapid Verified 01/14/24 21:11 Heart Rate Sulfa (Sulfonamide Allergy Unknown Verified 01/14/24 21:11 Antibiotics) verapamil Allergy Anaphylaxis Verified 01/14/24 21:11 celecoxib [From Celebrex] AdvReac CAUSES GI Verified 01/14/24 21:11 BLEEDING cephalexin monohydrate AdvReac Vomiting Verified 01/14/24 21:11 [From Keflex] diphenhydramine AdvReac arm burned Verified 01/14/24 21:11 [From Benadryl] when given IV Penicillins AdvReac Nausea & Verified 01/14/24 21:11 Vomiting tramadol AdvReac Nausea & Verified 01/14/24 21:11 Vomiting Physical Exam Vitals: Vital Signs Temp Pulse Resp BP Pulse Ox 01/15/24 10:20 87 18 126/83 99 01/15/24 08:54 97.8 F 96 17 117/72 98 01/15/24 06:13 87 18 102/62 95 01/15/24 04:00 84 18 75/52 98 01/15/24 00:00 110 H 118 H 121/88 96 01/14/24 20:30 125 H 18 127/85 96 01/14/24 18:16 121 H 22 142/87 94 L Intake and Output 01/14/24 01/15/24 01/15/24 22:59 06:59 14:59 Intake Total 82.492 Balance 82.492 Intake: Intake, IV Titration 82.492 Amount Heparin Sod,Pork in 0.45% 82.492 NaCl 25,000 unit In 0.45 % NaCl 1 250ml.bag @ 10. 02 UNITS/KG/HR 9.999 mls/ hr IV .Q24H [facility] Rx#: [id number] Other: Weight 99.79 kg Gen: This is a 53-year-old female in no acute distress VS: reviewed, blood pressure 117/72, heart rate 96, pulse ox 98% on room air. HEENT: Head is atraumatic, normocephalic. Pupils equal, round. Sclerae is anicteric. NECK: Supple. No JVD. LUNGS: Clear to auscultation. No wheezes or rhonchi. No intercostal retractions. HEART: Regular rate and rhythm. 2/6 systolic ejection murmur at the base. ABDOMEN: Soft No tenderness. EXTREMITIES: No pedal edema. No calf tenderness. NEUROLOGICAL: Patient is awake, alert and oriented x3. Results CBC & Chem 7: 01/15/24 03:36 01/15/24 03:36 Labs: Abnormal Lab Results - Last 24 Hours (Table) 01/14/24 01/14/24 01/15/24 Range/Units 18:40 21:00 00:28 APTT (22.0-30.0) sec Sodium 135 L (137-145) mmol/L BUN (7-17) mg/dL Glucose 341 H (74-99) mg/dL POC Glucose (mg/dL) 249 H 227 H (70-110) mg/dL 01/15/24 01/15/24 01/15/24 Range/Units 03:36 03:36 07:15 APTT 32.9 H (22.0-30.0) sec Sodium 134 L (137-145) mmol/L BUN 20 H (7-17) mg/dL Glucose 264 H (74-99) mg/dL POC Glucose (mg/dL) 224 H (70-110) mg/dL Assessment and Plan Assessment: 1. Chest pain rule out acute coronary syndrome -- We will admit to telemetry and monitor EKG and trend troponin; patient had echocardiogram completed in September 2023 which revealed an ejection fraction of 55% with moderate to severe aortic stenosis -Patient is recommended a nuclear stress test; patient is agreeable; patient is to undergo's Lexiscan stress test -- 2D echo is ordered and pending 2. Unstable angina; cardiology is consulted; patient is currently chest pain- free; await above evaluation 3. Uncontrolled hypertension; 4. Hyperglycemia/uncontrolled diabetes mellitus; losartan 25 mg daily, metoprolol 50 mg daily 5. Hyperlipidemia; continue home dose of Zetia and Crestor 6. Hypothyroidism; levothyroxine 150 mcg daily DVT prophylaxis; SCDs
--- NOTE | 2024-01-15 18:52 | CA ---
Transthoracic Echo Report Name: Letitia Andrade Age: 53 Gender: F : 1970 Exam Date: 01/15/2024 11:54 Exam Location: [place] Echo Ht (in): 64 Wt (lb): 224 Ordering Physician: Gisselle Kirby Attending/Referring Phys: [id number], [employer] Lead Hilary Senior, HALI Procedure CPT: Indications: LVF, Cardiac Hx: Technical Quality: Technically difficult study Contrast 1: Definity Total Dose (mL): 2 Contrast 2: Total Dose (mL): MEASUREMENTS (Male / Female) Normal Values 2D ECHO LV Diastolic Diameter PLAX 4.1 cm 4.2 - 5.9 / 3.9 - 5.3 cm LV Systolic Diameter PLAX 3.4 cm IVS Diastolic Thickness 1.6 cm 0.6 - 1.0 / 0.6 - 0.9 cm LVPW Diastolic Thickness 1.4 cm 0.6 - 1.0 / 0.6 - 0.9 cm LV Relative Wall Thickness 0.8 RV Internal Dim ED PLAX 3.0 cm LVOT Diameter 1.9 cm LA Systolic Diameter LX 4.5 cm 3.0 - 4.0 / 2.7 - 3.8 cm LA Volume 73.5 cm??? 18 - 58 / 22 - 52 cm??? LA Volume Index 33.5 cm???/m??? 16 - 28 cm???/m??? Ascending Aorta Diameter 3.7 cm M-MODE Aortic Root Diameter MM 3.0 cm LA Systolic Diameter MM 3.7 cm LA Ao Ratio MM 1.2 AV Cusp Separation MM 1.1 cm DOPPLER AV Peak Velocity 393.8 cm/s AV Peak Gradient 62.0 mmHg AV Mean Velocity 239.1 cm/s AV Mean Gradient 43.3 mmHg AV Velocity Time Integral 67.4 cm LVOT Peak Velocity 104.0 cm/s LVOT Peak Gradient 4.3 mmHg LVOT Velocity Time Integral 23.2 cm LVOT Stroke Volume 63.0 cm??? LVOT Stroke Volume Index 30.7 ml/m??? AV Area Cont Eq vti 0.9 cm??? AV Area Cont Eq pk 0.7 cm??? MV Peak Velocity 147.5 cm/s MV Peak Gradient 8.7 mmHg MV Mean Velocity 86.0 cm/s MV Mean Gradient 3.5 mmHg MV Velocity Time Integral 31.0 cm MV Area PHT 2.7 cm??? Mitral E Point Velocity 99.4 cm/s Mitral A Point Velocity 133.5 cm/s Mitral E to A Ratio 0.7 MV Deceleration Time 264.3 ms TR Peak Velocity 276.5 cm/s TR Peak Gradient 30.6 mmHg FINDINGS Left Ventricle Left ventricular ejection fraction is estimated at 55-60 %. Severely increased septal wall thickness. Moderately increased posterior wall thickness. Normal left ventricular systolic function with no obvious regional wall motion abnormalities. Right Ventricle Normal right ventricular size and function. Right ventricular systolic pressure within normal limits. Right Atrium Normal right atrial size. Left Atrium Moderately increased left atrial diameter. Mildly increased left atrial volume. Mitral Valve Mitral valve thickened. No mitral stenosis. Trace mitral regurgitation. Aortic Valve Bicuspid aortic valve. Severe aortic stenosis with a peak velocity of 3.9 m/s, peak gradient 62mmHg, mean gradient 43mmHg.Thickened aortic valve Tricuspid Valve Structurally normal tricuspid valve. No tricuspid stenosis. Trace tricuspid regurgitation. Pulmonic Valve Structurally normal pulmonic valve. No pulmonic stenosis. Pericardium No pericardial or pleural effusion. Aorta Mildly dilated proximal ascending aorta (tube) 3.7cm CONCLUSIONS Normal LV systolic function Aortic sclerosis with severe aortic stenosis and mean gradient of 43 mmHg Previewed by: Dr. Mohamud Sommer MD (Electronically Signed) Final Date: 15 Jan 2024 18:51
--- NOTE | 2024-01-15 19:27 | CA ---
Lexiscan Nuclear Stress Test Report Name: Letitia Andrade Exam Date: 01/15/2024 11:39 Exam Location: [place] Stress Ht (in): 64 Wt (lb): 220 BSA: 2.04 Ordering Phys: Gisselle Kirby Referring Phys: AICHA, Technologist: Edgard Sapp Age: 53 Gender: F : 1970 Procedure CPT: Indications: Reflex order-Stress test ICD-10 Codes: Patient History: Medications: SEE CHART Meds past 24 hrs: Pretest Chest Pain: STRESS TEST Lexiscan Protocol Exercise Duration (min:sec): 02:[address] Depressions (mm): Angina Score: Mendiola Score: Resting HR (bpm): 90 Peak HR (bpm): 118 Resting BP (mmHg): 120 / 79 Peak BP (mmHg): 161 / 83 MPHR: 165 Target HR: 140 % MPHR: 72 METS: 1.0 Total Dose: Peak Dose: Atropine: Double Product: 20813 BP Response: Stress Termination: PROTOCOL COMPLETE Stress Symptoms: NAUSEA Stress Summary: ECG ANALYSIS Resting ECG: Stress ECG: CONCLUSIONS Nondiagnostic stress testing Dr. Mohamud Sommer MD (Electronically Signed) Final Date: 15 Jan 2024 19:26
[2024-01-15 20:02] LABS: Glucose,Whole Blood 203 mg/dL (70-110)
[2024-01-15] MEDS: ONDANSETRON 4 MG/2 ML VIAL IVP PRN (23:19)
[2024-01-16 05:59] LABS: Glucose,Whole Blood 191 mg/dL (70-110)
[2024-01-16 07:45] LABS: Basophils % (A) 1 %; Eosinophils # (A) 0.3 k/uL (0-0.7); Eosinophils % (A) 3 %; HCT 38.8 % (34.0-46.0); HGB 12.1 gm/dL (11.4-16.0); Lymphocytes # (A) 1.8 k/uL (1.0-4.8); Lymphocytes % (A) 24 %; MCH 25.8 pg (25.0-35.0); MCHC 31.1 g/dL (31.0-37.0); MCV 82.9 fL (80.0-100.0); Mean Platelet Volume 7.6; Monocytes # (A) 0.4 k/uL (0-1.0); Monocytes % (A) 5 %; Neutrophils # (A) 4.8 k/uL (1.3-7.7); Neutrophils % (A) 65 %; Platelet Count 145 k/uL (150-450); RBC 4.68 m/uL (3.80-5.40); RDW 15.2 % (11.5-15.5); WBC 7.4 k/uL (3.8-10.6)
[2024-01-16 08:24] LABS: African American GFR (CKD) 63 (>60 ml/min/1.73 sqM); Anion Gap 8 mmol/L; Blood Urea Nitrogen 25 mg/dL (7-17); Calcium 8.6 mg/dL (8.4-10.2); Carbon Dioxide 24 mmol/L (22-30); Chloride 103 mmol/L (98-107); Glucose 172 mg/dL (74-99); Non-African American GFR(CKD) 55 (>60 ml/min/1.73 sqM); Potassium 3.7 mmol/L (3.5-5.1); Sodium 135 mmol/L (137-145)
[2024-01-16 11:53] LABS: Glucose,Whole Blood 151 mg/dL (70-110)
--- NOTE | 2024-01-16 14:51 | P.PN ---
Subjective Progress Note Date: 01/16/24 Reason for Consult (text): Chest pain, unstable angina History of present illness: History of present illness: This is a 53-year-old female patient of Dr. STUART Beck with past medical history of diabetes mellitus type 2, hypertension, hyperlipidemia, coronary artery disease status post PCI of the LAD, moderate aortic stenosis, family history of premature coronary artery disease, tobacco use and dependence. We have been asked to evaluate the patient for chest pain and unstable angina. Patient states that she developed chest pain yesterday at rest, not with activiity. Pain was in the upper mid chest with radiation to the left back. Pain was somewhat simlar to previous pain requiring stent. She also broke out into a sweat. She called EMS and HR was 130s and BP 181/101. She received fenantyl and pain resolved for about 15-20 minutes. No chest pain at this time. Pain gradually went away. She states she walked to the in the ER and experienced sever chest pain. Patient has been started on a heparin drip. Patient is seen today in the emergency center waiting for bed on the cardiac stepdown unit. EKG sinus tachycardia 123 bpm, sinus tachycardia 119 bpm Chest x-ray: No acute process CBC within normal limits. Sodium 134, potassium 3.6, BUN 20 creatinine 0.99. Troponin negative x 3. Home cardiac medications: Atorvastatin 40 mg at bedtime, Jardiance 10 mg daily, Zetia 10 mg at bedtime, Lasix 20 mg daily, Imdur 30 mg daily, losartan 25 mg daily, Toprol-XL 50 mg daily, Effient 10 mg daily, Aldactone 25 mg daily, patient also on Mounjaro, levothyroxine. Cardiac catheterization performed 01/13/2023 revealed severe disease involving the mid LAD and subsequently underwent stenting of the mid LAD by Dr. Sommer. Cardiac catheterization performed 10/06/2023 at [facility] revealed elevated filling pressures 24 mmHg, moderate AAS with pullback of 36 mmHg, widely patent mid LAD at the previously stented portion. No significant disease of the left main, RCA or circumflex. Echocardiogram performed on 10/05/2023 revealed EF of 55%, moderate to severe with mean 33 mmHg. 01/15 Patient is seen today in follow-up on the cardiac stepdown unit. Yesterday, patient underwent Lexiscan Cardiolite stress test which revealed negative test for reversible ischemia. Echocardiogram reveals EF of 55 to 60%, aortic sclerosis with severe aortic stenosis and mean gradient of 43 mmHg. Results have been reviewed with the patient. Patient states she has some nausea last night and vomited once. She complains of nausea this morning. She also had some chills this morning. She denies having chest pain or chest pressure. Blood pressure is on the low side at 95/59, heart rate in the 70s and 80s. Repeat blood work reveals hemoglobin 12.1, BUN 25, creatinine 1.13 and potassium 3.7. Physical examination: Gen: This is a 53-year-old female in no acute distress VS: reviewed HEENT: Head is atraumatic, normocephalic. Pupils equal, round. Sclerae is anicteric. NECK: Supple. No JVD. LUNGS: Clear to auscultation. No wheezes or rhonchi. No intercostal retractions. HEART: Regular rate and rhythm. 2/6 systolic ejection murmur at the base. ABDOMEN: Soft No tenderness. EXTREMITIES: No pedal edema. No calf tenderness. NEUROLOGICAL: Patient is awake, alert and oriented x3. Assessment: Chest pain possibly related to uncontrolled HTN Acute coronary syndrome ruled out with negative troponins and negative Lexiscan History of coronary artery disease Severe aortic stenosis Nausea and vomiting Hypotension History of hypertension Hyperlipidemia Diabetes mellitus type 2 Plan: Continue patient's home cardiac medications Discontinue heparin drip Hold losartan due to hypotension If blood pressure is stable this afternoon, patient is cleared from cardiology for discharge home. Patient may follow-up in the office with Dr. STUART Beck in 1 to 2 weeks. Nurse practitioner note has been reviewed, I agree with documented findings and plan of care. Patient was seen and examined. Objective - Vital Signs Vital signs: Vital Signs Temp 98 F 01/16/24 04:00 Pulse 80 01/16/24 04:00 Resp 16 01/16/24 04:00 BP 95/59 01/16/24 08:00 Pulse Ox 99 01/16/24 04:00 FiO2 Intake & Output 01/15/24 01/16/24 01/16/24 18:59 06:59 18:59 Intake Total 148.541 84.575 540 Balance 148.541 84.575 540 Weight 99.79 kg Intake: Intake, IV Titration 148.541 84.575 Amount Heparin Sod,Pork in 0.45% 148.541 84.575 NaCl 25,000 unit In 0.45 % NaCl 1 250ml.bag @ 10. 02 UNITS/KG/HR 9.999 mls/ hr IV .Q24H [facility] Rx#: [id number] Oral 540 - Labs CBC & Chem 7: 01/16/24 07:32 01/16/24 07:32 Labs: Abnormal Lab Results - Last 24 Hours (Table) 01/15/24 01/15/24 01/15/24 Range/Units 10:35 13:03 16:19 Plt Count (150-450) k/uL APTT 43.1 H (22.0-30.0) sec Sodium (137-145) mmol/L BUN (7-17) mg/dL Creatinine (0.52-1.04) mg/dL Glucose (74-99) mg/dL POC Glucose (mg/dL) 264 H 198 H (70-110) mg/dL 01/15/24 01/15/24 01/16/24 Range/Units 19:21 20:00 05:57 Plt Count (150-450) k/uL APTT 35.1 H (22.0-30.0) sec Sodium (137-145) mmol/L BUN (7-17) mg/dL Creatinine (0.52-1.04) mg/dL Glucose (74-99) mg/dL POC Glucose (mg/dL) 203 H 191 H (70-110) mg/dL 01/16/24 01/16/24 01/16/24 Range/Units 07:32 07:32 07:32 Plt Count 145 L (150-450) k/uL APTT 74.4 H (22.0-30.0) sec Sodium 135 L (137-145) mmol/L BUN 25 H (7-17) mg/dL Creatinine 1.13 H (0.52-1.04) mg/dL Glucose 172 H (74-99) mg/dL POC Glucose (mg/dL) (70-110) mg/dL
--- NOTE | 2024-01-16 15:21 | P.PN ---
Subjective Progress Note Date: 01/16/24 53-year-old female patient, history of diabetes mellitus type 2, hypertension, hyperlipidemia, coronary artery disease status post PCI of the LAD, moderate aortic stenosis. Patient states that she developed chest pain yesterday at rest, not with activiity. Pain was in the upper mid chest with radiation to the left back. Pain was somewhat simlar to previous pain requiring stent. She also broke out into a sweat. She called EMS and HR was 130s and BP 181/101. She received fenantyl and pain resolved for about 15-20 minutes. No chest pain at this time. Pain gradually went away. She states she walked to the in the ER and experienced sever chest pain. Patient has been started on a heparin drip. Nadia barba is seen today in the emergency center waiting for bed on the cardiac stepdown unit. EKG sinus tachycardia 123 bpm, sinus tachycardia 119 bpm Chest x-ray: No acute process Echocardiogram performed on 10/05/2023 revealed EF of 55%, moderate to severe with mean 33 mmHg. Patient underwent nuclear stress testing which was negative for reversible ischemia -- Reports feeling exhausted from multiple episodes of nausea/vomiting and diarrhea; patient has been placed on a clear liquid diet, Protonix 40 mg twice daily; Zofran 4 mg every 6 hours as needed Objective - Vital Signs Vital signs: Vital Signs Temp 98 F 01/16/24 04:00 Pulse 80 01/16/24 04:00 Resp 16 01/16/24 04:00 BP 128/71 01/16/24 04:00 Pulse Ox 99 01/16/24 04:00 FiO2 Intake & Output 01/15/24 01/16/24 01/16/24 18:59 06:59 18:59 Intake Total 148.541 84.575 Balance 148.541 84.575 Weight 99.79 kg Intake: Intake, IV Titration 148.541 84.575 Amount Heparin Sod,Pork in 0.45% 148.541 84.575 NaCl 25,000 unit In 0.45 % NaCl 1 250ml.bag @ 10. 02 UNITS/KG/HR 9.999 mls/ hr IV .Q24H [facility] Rx#: [id number] - Exam Gen: This is a 53-year-old female in no acute distress VS: reviewed, blood pressure 117/72, heart rate 96, pulse ox 98% on room air. HEENT: Head is atraumatic, normocephalic. Pupils equal, round. Sclerae is anicteric. NECK: Supple. No JVD. LUNGS: Clear to auscultation. No wheezes or rhonchi. No intercostal retra ctions. HEART: Regular rate and rhythm. 2/6 systolic ejection murmur at the base. ABDOMEN: Soft No tenderness. EXTREMITIES: No pedal edema. No calf tenderness. NEUROLOGICAL: Patient is awake, alert and oriented x3. - Labs CBC & Chem 7: 01/16/24 07:32 01/16/24 07:32 Labs: Abnormal Lab Results - Last 24 Hours (Table) 01/15/24 01/15/24 01/15/24 Range/Units 10:35 13:03 16:19 Plt Count (150-450) k/uL APTT 43.1 H (22.0-30.0) sec Sodium (137-145) mmol/L BUN (7-17) mg/dL Creatinine (0.52-1.04) mg/dL Glucose (74-99) mg/dL POC Glucose (mg/dL) 264 H 198 H (70-110) mg/dL 01/15/24 01/15/24 01/16/24 Range/Units 19:21 20:00 05:57 Plt Count (150-450) k/uL APTT 35.1 H (22.0-30.0) sec Sodium (137-145) mmol/L BUN (7-17) mg/dL Creatinine (0.52-1.04) mg/dL Glucose (74-99) mg/dL POC Glucose (mg/dL) 203 H 191 H (70-110) mg/dL 01/16/24 01/16/24 01/16/24 Range/Units 07:32 07:32 07:32 Plt Count 145 L (150-450) k/uL APTT 74.4 H (22.0-30.0) sec Sodium 135 L (137-145) mmol/L BUN 25 H (7-17) mg/dL Creatinine 1.13 H (0.52-1.04) mg/dL Glucose 172 H (74-99) mg/dL POC Glucose (mg/dL) (70-110) mg/dL Assessment and Plan Assessment: 1. Chest pain rule out acute coronary syndrome -- We will admit to telemetry and monitor EKG and trend troponin; patient had echocardiogram completed in September 2023 which revealed an ejection fraction of 55% with moderate to severe aortic stenosis -Patient is recommended a nuclear stress test; patient is agreeable; patient is to undergo's Lexiscan stress test -- 2D echo is ordered and pending 2. Unstable angina; cardiology is consulted; patient is currently chest pain- free; await above evaluation 3. Uncontrolled hypertension; 4. Hyperglycemia/uncontrolled diabetes mellitus; losartan 25 mg daily, metoprolol 50 mg daily 5. Hyperlipidemia; continue home dose of Zetia and Crestor 6. Hypothyroidism; levothyroxine 150 mcg daily DVT prophylaxis; SCDs
[2024-01-16 16:23] LABS: Glucose,Whole Blood 177 mg/dL (70-110)
[2024-01-16 20:05] LABS: Glucose,Whole Blood 166 mg/dL (70-110)
[2024-01-16] MEDS: MORPHINE SULFATE 4 MG/ML SYRINGE IV PRN (21:27)
[2024-01-16] MEDS: ACETAMINOPHEN TAB 325 MG TAB PO PRN (23:58)
[2024-01-17] MEDS: SODIUM CHLORIDE 0.9% 1,000 ML IV SCH
[2024-01-17 03:34] LABS: Appearance,Urine Clear (Clear); Bacteria,Urine Rare /hpf; Bilirubin,Urine Negative (Negative); Blood,Urine Negative (Negative); Color,Urine Colorless; Glucose,Urine (UA) 4+ (Negative); Ketones,Urine Negative (Negative); Leukocyte Esterase,Urine Small (Negative); Mucus,Urine Rare /hpf; Nitrite,Urine Negative (Negative); PH, Urine 5.5 (5.0-8.0); Protein,Urine Trace (Negative); RBC,Urine 1 /hpf (0-5); Specific Gravity,Urine 1.019 (1.001-1.035); Squamous Epithelial Cell,Urine 5 /hpf (0-4); Urobilinogen,Urine <2.0 mg/dL (<2.0); WBC,Urine 6 /hpf (0-5)
[2024-01-17 05:59] LABS: Glucose,Whole Blood 208 mg/dL (70-110)
[2024-01-17 08:44] LABS: Basophils % (A) 0 %; Eosinophils % (A) 1 %; HCT 39.9 % (34.0-46.0); HGB 12.6 gm/dL (11.4-16.0); Hypochromasia Slight; Lymphocytes # (A) 0.6 k/uL (1.0-4.8); Lymphocytes % (A) 9 %; MCH 26.2 pg (25.0-35.0); MCHC 31.5 g/dL (31.0-37.0); MCV 83.1 fL (80.0-100.0); Mean Platelet Volume 7.4; Monocytes # (A) 0.4 k/uL (0-1.0); Monocytes % (A) 6 %; Neutrophils # (A) 5.5 k/uL (1.3-7.7); Neutrophils % (A) 83 %; Platelet Count 144 k/uL (150-450); RDW 15.3 % (11.5-15.5); WBC 6.6 k/uL (3.8-10.6)
[2024-01-17 08:45] LABS: Basophils % (A) 0 %; Eosinophils # (A) 0.1 k/uL (0-0.7); Eosinophils % (A) 1 %; HCT 39.1 % (34.0-46.0); HGB 12.5 gm/dL (11.4-16.0); Hypochromasia Slight; Lymphocytes # (A) 0.5 k/uL (1.0-4.8); Lymphocytes % (A) 8 %; MCH 26.7 pg (25.0-35.0); MCHC 31.9 g/dL (31.0-37.0); MCV 83.5 fL (80.0-100.0); Mean Platelet Volume 7.5; Monocytes # (A) 0.4 k/uL (0-1.0); Monocytes % (A) 6 %; Neutrophils # (A) 5.6 k/uL (1.3-7.7); Neutrophils % (A) 84 %; Platelet Count 130 k/uL (150-450); RBC 4.68 m/uL (3.80-5.40); RDW 15.2 % (11.5-15.5); WBC 6.6 k/uL (3.8-10.6)
[2024-01-17 08:54] LABS: ALT 21 U/L (4-34); AST 20 U/L (14-36); African American GFR (CKD) 81 (>60 ml/min/1.73 sqM); Albumin 3.5 g/dL (3.5-5.0); Alkaline Phosphatase 76 U/L (38-126); Anion Gap 7 mmol/L; Blood Urea Nitrogen 18 mg/dL (7-17); Calcium 8.5 mg/dL (8.4-10.2); Carbon Dioxide 25 mmol/L (22-30); Chloride 102 mmol/L (98-107); Glucose 193 mg/dL (74-99); Non-African American GFR(CKD) 71 (>60 ml/min/1.73 sqM); Potassium 4.1 mmol/L (3.5-5.1); Sodium 134 mmol/L (137-145); Total Bilirubin 0.9 mg/dL (0.2-1.3); Total Protein 6.3 g/dL (6.3-8.2)
--- NOTE | 2024-01-17 11:16 | P.PN ---
Subjective Progress Note Date: 01/17/24 Reason for Consult (text): Chest pain, unstable angina History of present illness: History of present illness: This is a 53-year-old female patient of Dr. STUART Beck with past medical history of diabetes mellitus type 2, hypertension, hyperlipidemia, coronary artery disease status post PCI of the LAD, moderate aortic stenosis, family history of premature coronary artery disease, tobacco use and dependence. We have been asked to evaluate the patient for chest pain and unstable angina. Patient states that she developed chest pain yesterday at rest, not with activiity. Pain was in the upper mid chest with radiation to the left back. Pain was somewhat simlar to previous pain requiring stent. She also broke out into a sweat. She called EMS and HR was 130s and BP 181/101. She received fenantyl and pain resolved for about 15-20 minutes. No chest pain at this time. Pain gradually went away. She states she walked to the in the ER and experienced sever chest pain. Patient has been started on a heparin drip. Patient is seen today in the emergency center waiting for bed on the cardiac stepdown unit. EKG sinus tachycardia 123 bpm, sinus tachycardia 119 bpm Chest x-ray: No acute process CBC within normal limits. Sodium 134, potassium 3.6, BUN 20 creatinine 0.99. Troponin negative x 3. Home cardiac medications: Atorvastatin 40 mg at bedtime, Jardiance 10 mg daily, Zetia 10 mg at bedtime, Lasix 20 mg daily, Imdur 30 mg daily, losartan 25 mg daily, Toprol-XL 50 mg daily, Effient 10 mg daily, Aldactone 25 mg daily, patient also on Mounjaro, levothyroxine. Cardiac catheterization performed 01/13/2023 revealed severe disease involving the mid LAD and subsequently underwent stenting of the mid LAD by Dr. Sommer. Cardiac catheterization performed 10/06/2023 at [facility] revealed elevated filling pressures 24 mmHg, moderate AAS with pullback of 36 mmHg, widely patent mid LAD at the previously stented portion. No significant disease of the left main, RCA or circumflex. Echocardiogram performed on 10/05/2023 revealed EF of 55%, moderate to severe with mean 33 mmHg. 01/15 Patient is seen today in follow-up on the cardiac stepdown unit. Yesterday, patient underwent Lexiscan Cardiolite stress test which revealed negative test for reversible ischemia. Echocardiogram reveals EF of 55 to 60%, aortic sclerosis with severe aortic stenosis and mean gradient of 43 mmHg. Results have been reviewed with the patient. Patient states she has some nausea last night and vomited once. She complains of nausea this morning. She also had some chills this morning. She denies having chest pain or chest pressure. Blood pressure is on the low side at 95/59, heart rate in the 70s and 80s. Repeat blood work reveals hemoglobin 12.1, BUN 25, creatinine 1.13 and potassium 3.7. 01/16 Patient is complaining of nausea fever and noticed to be tachycardic. Temperature max 99.9. Heart rate 215449. Blood pressure 115/78 and pulse ox 96% on room air. Repeat blood work reveals WBC 6.6 and hemoglobin 12.6. Sodium 134, potassium 4.1, creatinine 0.92. Physical examination: Gen: This is a 53-year-old female in no acute distress VS: reviewed LUNGS: Clear to auscultation. No wheezes or rhonchi. No intercostal retractions. HEART: Regular rate and rhythm. 2/6 systolic ejection murmur at the base. ABDOMEN: Soft No tenderness. EXTREMITIES: No pedal edema. No calf tenderness. NEUROLOGICAL: Patient is awake, alert and oriented x3. Assessment: Chest pain possibly related to uncontrolled HTN Acute coronary syndrome ruled out with negative troponins and negative Lexiscan History of coronary artery disease Severe aortic stenosis Nausea and vomiting Hypotension History of hypertension Hyperlipidemia Diabetes mellitus type 2 Febrile illness Tachycardia secondary to fever Plan: Continue patient's home cardiac medications Cardiology will sign off this case and follow on an as-needed basis. Please reconsult for any new concerns. Discontinue cardiac monitoring Patient may follow-up in the office with Dr. STUART Beck in 1 to 2 weeks. Nurse practitioner note has been reviewed, I agree with documented findings and plan of care. Patient was seen and examined. Objective - Vital Signs Vital signs: Vital Signs Temp 99.9 F H 01/17/24 04:00 Pulse 116 H 01/17/24 04:00 Resp 18 01/17/24 04:00 BP 118/72 01/17/24 04:00 Pulse Ox 97 01/17/24 04:00 FiO2 Intake & Output 01/16/24 01/17/24 01/17/24 18:59 06:59 18:59 Intake Total 1224 Output Total 550 Balance 1224 -550 Intake: Oral 1224 Output: Urine 550 Other: # Voids 4 # Bowel Movements 2 - Labs CBC & Chem 7: 01/17/24 08:20 01/17/24 08:20 Labs: Abnormal Lab Results - Last 24 Hours (Table) 01/16/24 01/16/24 01/16/24 Range/Units 11:51 16:22 20:02 Plt Count (150-450) k/uL Lymphocytes # (1.0-4.8) k/uL Sodium (137-145) mmol/L BUN (7-17) mg/dL Glucose (74-99) mg/dL POC Glucose (mg/dL) 151 H 177 H 166 H (70-110) mg/dL Urine Protein (Negative) Urine Glucose (UA) (Negative) Ur Leukocyte Esterase (Negative) Urine WBC (0-5) /hpf Ur Squamous Epith Cells (0-4) /hpf Urine Bacteria (None) /hpf Urine Mucus (None) /hpf 01/17/24 01/17/24 01/17/24 Range/Units 01:50 05:57 08:20 Plt Count 130 L (150-450) k/uL Lymphocytes # 0.5 L (1.0-4.8) k/uL Sodium (137-145) mmol/L BUN (7-17) mg/dL Glucose (74-99) mg/dL POC Glucose (mg/dL) 208 H (70-110) mg/dL Urine Protein Trace H (Negative) Urine Glucose (UA) 4+ H (Negative) Ur Leukocyte Esterase Small H (Negative) Urine WBC 6 H (0-5) /hpf Ur Squamous Epith Cells 5 H (0-4) /hpf Urine Bacteria Rare H (None) /hpf Urine Mucus Rare H (None) /hpf 01/17/24 01/17/24 Range/Units 08:20 08:20 Plt Count 144 L (150-450) k/uL Lymphocytes # 0.6 L (1.0-4.8) k/uL Sodium 134 L (137-145) mmol/L BUN 18 H (7-17) mg/dL Glucose 193 H (74-99) mg/dL POC Glucose (mg/dL) (70-110) mg/dL Urine Protein (Negative) Urine Glucose (UA) (Negative) Ur Leukocyte Esterase (Negative) Urine WBC (0-5) /hpf Ur Squamous Epith Cells (0-4) /hpf Urine Bacteria (None) /hpf Urine Mucus (None) /hpf
[2024-01-17 11:55] LABS: Glucose,Whole Blood 138 mg/dL (70-110)
--- NOTE | 2024-01-17 16:46 | CT ---
EXAMINATION TYPE: CT abdomen pelvis wo con CT DLP: 1118.2 mGycm, Automated exposure control for dose reduction was used. DATE OF EXAM: 01/17/2024 4:30 PM COMPARISON: CT abdomen pelvis most recent from CLINICAL INDICATION:Female, 53 years old with history of abdominal pain; LOWER ABD PAIN TECHNIQUE: Axial CT abdomen pelvis wo con;Sagittal and coronal reformats were created on a separate workstation. Contrast used: mL of , (none if empty) Oral contrast used: without Oral Contrast (none if empty) FINDINGS: LOWER CHEST: Heart is enlarged for size there is mitral valve annular calcifications. ABDOMEN LIVER: Diffusely hypoattenuating parenchyma. GALLBLADDER AND BILE DUCTS: The gallbladder is surgically absent. PANCREAS: Unremarkable. SPLEEN: Unremarkable. ADRENAL GLANDS: Unremarkable. KIDNEYS AND URETERS: No evidence of hydronephrosis or left renal calculus. The ureters are unremarkab le. Possible tiny 1-millimeter right-sided non obstructing calculi. PELVIS BLADDER: Unremarkable REPRODUCTIVE: Unremarkable. ABDOMEN & PELVIS STOMACH AND BOWEL: No evidence of bowel obstruction. PERITONEUM/RETROPERITONEUM: No evidence of pneumoperitoneum or free fluid. VASCULATURE: No evidence of aortic aneurysm. MUSCULOSKELETAL: No acute osseous abnormalities LYMPH NODES: No gross evidence for lymphadenopathy. SOFT TISSUE/ABDOMINAL WALL: Unremarkable IMPRESSION: 1. No evidence for acute abdominal process. 2. Right 1 mm nonobstructing renal calculi. 3. Hepatic steatosis.
[2024-01-17 16:58] LABS: Glucose,Whole Blood 178 mg/dL (70-110)
[2024-01-17] MEDS ORDERED: DEXTROSE 50% SYRINGE 50 ML IVP PRN ×2 (17:08)
--- NOTE | 2024-01-17 17:33 | P.PN ---
Subjective Progress Note Date: 01/17/24 53-year-old female patient, history of diabetes mellitus type 2, hypertension, hyperlipidemia, coronary artery disease status post PCI of the LAD, moderate aortic stenosis. Patient states that she developed chest pain yesterday at rest, not with activiity. Pain was in the upper mid chest with radiation to the left back. Pain was somewhat simlar to previous pain requiring stent. She also broke out into a sweat. She called EMS and HR was 130s and BP 181/101. She received fenantyl and pain resolved for about 15-20 minutes. No chest pain at this time. Pain gradually went away. She states she walked to the in the ER and experienced sever chest pain. Patient has been started on a heparin drip. Nadia barba is seen today in the emergency center waiting for bed on the cardiac stepdown unit. EKG sinus tachycardia 123 bpm, sinus tachycardia 119 bpm Chest x-ray: No acute process Echocardiogram performed on 10/05/2023 revealed EF of 55%, moderate to severe with mean 33 mmHg. Patient underwent nuclear stress testing which was negative for reversible ischemia -- Reports feeling exhausted from multiple episodes of nausea/vomiting and diarrhea; patient has been placed on a clear liquid diet, Protonix 40 mg twice daily; Zofran 4 mg every 6 hours as needed 01/17/2024 Patient is seen and evaluated in room at bedside; given negative stress test patient was planned to be discharged this morning; reporting abdominal pain mainly located in left upper quadrant and epigastric area with pressure in both lower quadrant; continues to report nausea but no vomiting; complaints of pain and hardness left antecubital area at previous IV site Patient had a low-grade temperature of 99.9 earlier but has resolved since then; some concern about tachycardia with heart rate around 1 15-1 16; currently heart rate of 96 with blood pressure of 96/62 and O2 saturation 94% on room air White blood count of 6.6, hemoglobin of 12.6 and platelet count of 144, sodium 134, potassium 4.1, BUNs/creatinine of 18/0.9, liver enzymes are unremarkable --Given persistent complaint of nausea and abdominal pain, we will hold discharge; will order CT of the abdomen without contrast(patient is allergic to iodine) -- We will start patient on Ancef 1 g IV every 8 hours for possible cellulitis left antecubital fossa; will order upper extremity venous Doppler to rule out DVT Objective - Vital Signs Vital signs: Vital Signs Temp 98.5 F 01/17/24 11:33 Pulse 96 01/17/24 14:00 Resp 18 01/17/24 14:00 BP 96/62 01/17/24 11:33 Pulse Ox 94 L 01/17/24 11:33 FiO2 Intake & Output 01/16/24 01/17/24 01/17/24 18:59 06:59 18:59 Intake Total 1224 240 Output Total 550 Balance 1224 -550 240 Intake: Oral 1224 240 Output: Urine 550 Other: # Voids 4 3 # Bowel Movements 2 - Exam Gen: This is a 53-year-old female in no acute distress VS: reviewed, blood pressure 117/72, heart rate 96, pulse ox 98% on room air. HEENT: Head is atraumatic, normocephalic. Pupils equal, round. Sclerae is anicteric. NECK: Supple. No JVD. LUNGS: Clear to auscultation. No wheezes or rhonchi. No intercostal retractions. HEART: Regular rate and rhythm. 2/6 systolic ejection murmur at the base. ABDOMEN: Soft No tenderness. EXTREMITIES: No pedal edema. No calf tenderness. NEUROLOGICAL: Patient is awake, alert and oriented x3. - Labs CBC & Chem 7: 01/17/24 08:20 01/17/24 08:20 Labs: Abnormal Lab Results - Last 24 Hours (Table) 01/16/24 01/17/24 01/17/24 Range/Units 20:02 01:50 05:57 Plt Count (150-450) k/uL Lymphocytes # (1.0-4.8) k/uL Sodium (137-145) mmol/L BUN (7-17) mg/dL Glucose (74-99) mg/dL POC Glucose (mg/dL) 166 H 208 H (70-110) mg/dL Urine Protein Trace H (Negative) Urine Glucose (UA) 4+ H (Negative) Ur Leukocyte Esterase Small H (Negative) Urine WBC 6 H (0-5) /hpf Ur Squamous Epith Cells 5 H (0-4) /hpf Urine Bacteria Rare H (None) /hpf Urine Mucus Rare H (None) /hpf 01/17/24 01/17/24 01/17/24 Range/Units 08:20 08:20 08:20 Plt Count 130 L 144 L (150-450) k/uL Lymphocytes # 0.5 L 0.6 L (1.0-4.8) k/uL Sodium 134 L (137-145) mmol/L BUN 18 H (7-17) mg/dL Glucose 193 H (74-99) mg/dL POC Glucose (mg/dL) (70-110) mg/dL Urine Protein (Negative) Urine Glucose (UA) (Negative) Ur Leukocyte Esterase (Negative) Urine WBC (0-5) /hpf Ur Squamous Epith Cells (0-4) /hpf Urine Bacteria (None) /hpf Urine Mucus (None) /hpf 01/17/24 01/17/24 Range/Units 11:52 16:56 Plt Count (150-450) k/uL Lymphocytes # (1.0-4.8) k/uL Sodium (137-145) mmol/L BUN (7-17) mg/dL Glucose (74-99) mg/dL POC Glucose (mg/dL) 138 H 178 H (70-110) mg/dL Urine Protein (Negative) Urine Glucose (UA) (Negative) Ur Leukocyte Esterase (Negative) Urine WBC (0-5) /hpf Ur Squamous Epith Cells (0-4) /hpf Urine Bacteria (None) /hpf Urine Mucus (None) /hpf Assessment and Plan Assessment: 1. Chest pain rule out acute coronary syndrome -- We will admit to telemetry and monitor EKG and trend troponin; patient had echocardiogram completed in September 2023 which revealed an ejection fraction of 55% with moderate to severe aortic stenosis -Patient is recommended a nuclear stress test; patient is agreeable; patient is to undergo's Lexiscan stress test -- 2D echo is ordered and pending 2. Unstable angina; cardiology is consulted; patient is currently chest pain- free; await above evaluation 3. Uncontrolled hypertension; 4. Hyperglycemia/uncontrolled diabetes mellitus; losartan 25 mg daily, metoprolol 50 mg daily 5. Hyperlipidemia; continue home dose of Zetia and Crestor 6. Hypothyroidism; levothyroxine 150 mcg daily DVT prophylaxis; SCDs
[2024-01-17] MEDS: INSULIN ASPART (NovoLOG) 100 UNIT/ML VIAL SQ SCH (17:47)
--- NOTE | 2024-01-17 19:24 | US ---
EXAMINATION TYPE: US venous doppler duplex UE LT DATE OF EXAM: 01/17/2024 COMPARISON: NONE CLINICAL INDICATION: Female, 53 years old with history of edema, redness, pain; recent iv site at lef t antecub, pain, redness SIDE PERFORMED: Left Left Arm: Negative DVT. At AOC, focal thrombus vs wall thickening seen, vascular flow seen within ve in in the cubital fossa. IMPRESSION: No evidence for deep vein tendinosis. Thin axial fossa there is irregular wall focal thickening possi camila representing small thrombus in the superficial venous system.
[2024-01-17 20:17] LABS: Glucose,Whole Blood 212 mg/dL (70-110)
--- NOTE | 2024-01-17 22:00 | P.CONS ---
History of Present Illness - Reason for Consult Consult date: 01/17/24 Fever, chills Requesting physician: Vasiliy Berumen - Chief Complaint Left upper arm pain and redness at IV site x 1 day - History of Present Illness Patient is a 53-year-old female with a past medical history significant for CVA TIA diabetes mellitus hypertension hyperlipidemia COPD and asthma former smoker presented to the hospital 3 days ago for evaluation of chest pain in this patient who did have a history of chronic chest pain but noticed to have worsening recently describing it to be substernal without any radiation associated shortness of breath and apparently the patient did have a history of PTCA and stent about a year ago with the symptoms the patient has been evaluated on presentation to the hospital the patient was afebrile she did have a low-grade fever of 99.9 F at 4 AM patient also tachycardic but not hypotensive or hypoxic and no need for supplemental oxygen patient did have normal white count creatinine has been normal electrolytes are normal liver enzymes are normal urine is mildly positive patient did have a stress test no evidence of reversible ischemia also have a CT abdominal pelvis no evidence of for acute abdominal process right 1 mm nonobstructive renal calculi because of low-grade fever infectious was consulted for further management patient did have a left antecubital IV which apparently has been removed as the patient has developed surrounding swelling redness and pain describing it to be sharp, moderate intensity without radiation Review of Systems Positive point and negatives has been mentioned in the HPI, complete review of systems was performed and all other systems are negative Past Medical History Past Medical History: Asthma, Chest Pain / Angina, COPD, CVA/TIA, Diabetes Mellitus, Hyperlipidemia, Hypertension Additional Past Medical History / Comment(s): neuoropathy, RT CATARACT TIA History of Any Multi-Drug Resistant Organisms: None Reported Past Surgical History: Adenoidectomy, Cholecystectomy, Heart Catheterization With Stent, Tonsillectomy Additional Past Surgical History / Comment(s): D&C, carpal tunnel surgery left , LT ARM SX FOR "PINCHED NERVE", LT THUMB TRIGGER FINGER, rae neuroma removed left foot, heart cath 2015 , right ankle fx 01/2018 no surgery , LT CATARACT REMOVED WITH LENS IMPLANT thyroidectomy Past Anesthesia/Blood Transfusion Reactions: Previous Problems w/ Anesthesia, M otion Sickness Additional Past Anesthesia/Blood Transfusion Reaction / Comm: difficulty waking from anesthesia Date of Last Stent Placement:: 2022 Past Psychological History: Anxiety, Depression, Panic Disorder Smoking Status: Former smoker Past Alcohol Use History: Occasional Past Drug Use History: None Reported - Past Family History Father Family Medical History: Cancer Additional Family Medical History / Comment(s): skin Mother Family Medical History: Diabetes Mellitus, Hypertension, Osteoarthritis (OA) Additional Family Medical History / Comment(s): MURMUR Sister(s) Family Medical History: Cancer Additional Family Medical History / Comment(s): ovarian Medications and Allergies Home Medications Medication Instructions Recorded Confirmed Type Montelukast [Singulair] 10 mg PO HS 04/16/17 01/14/24 History Losartan Potassium [Cozaar] 25 mg PO DAILY 06/24/17 01/14/24 History PARoxetine HCL [Paxil] 40 mg PO DAILY 12/27/18 01/14/24 History Insulin Aspart [NovoLOG Flexpen] 15 units SQ AC-TID 04/30/22 01/14/24 History Empagliflozin [Jardiance] 10 mg PO DAILY 01/13/23 01/14/24 History Insulin Aspart [NovoLOG Flexpen] See Protocol SQ AC-TID 01/13/23 01/14/24 History Insulin Glargine,Hum.rec.anlog 50 units SQ HS 01/13/23 01/14/24 History [Lantus Solostar Pen] Omeprazole [PriLOSEC] 20 mg PO DAILY 01/13/23 01/14/24 History oxyCODONE-APAP 5-325MG [Percocet 1 tab PO TID 01/13/23 01/14/24 History 5-325 mg] tiZANidine [Zanaflex] 4 mg PO HS 01/13/23 01/14/24 History Prasugrel [Effient] 10 mg PO DAILY #90 tablet 01/14/23 01/14/24 Rx Atorvastatin [Lipitor] 40 mg PO HS 01/14/24 01/14/24 History Butalb/APAP/Caff 50-325-40Mg 1 tab PO BID PRN 01/14/24 01/14/24 History [Fioricet 50-325-40] Diclofenac Sodium Gel [Voltaren 1% 1 applic TOPICAL BID PRN 01/14/24 01/14/24 History Gel] Ergocalciferol [Vitamin D2 (1250 1,250 mcg PO TU 01/14/24 01/14/24 History Mcg = 85936 Iu)] Ezetimibe [Zetia] 10 mg PO HS 01/14/24 01/14/24 History Fluticasone Nasal [place] [Flonase 2 spray EA NOSTRIL HS 01/14/24 01/14/24 History Nasal [place]] Furosemide [Lasix] 20 mg PO DAILY 01/14/24 01/14/24 History Isosorbide Mononitrate ER [Imdur] 30 mg PO DAILY 01/14/24 01/14/24 History Levothyroxine Sodium 150 mcg PO DAILY 01/14/24 01/14/24 History Metoprolol Succinate (ER) [Toprol 50 mg PO DAILY 01/14/24 01/14/24 History XL] Nystatin 100,000 Unit/gm Powd 1 applic TOPICAL BID 01/14/24 01/14/24 History [Mycostatin Powder] Spironolactone [Aldactone] 25 mg PO DAILY 01/14/24 01/14/24 History Tirzepatide [Mounjaro] 2.5 mg SQ TU 01/14/24 01/14/24 History metFORMIN HCL 1,000 mg PO BID 01/14/24 01/14/24 History Ondansetron [Zofran] 4 mg PO Q8HR PRN 4 Days #10 tab 01/17/24 Rx Cephalexin [Keflex] 500 mg PO Q8HR 7 Days #21 cap 01/22/24 Rx Allergies Allergy/AdvReac Type Severity Reaction Status Date / Time adhesive Allergy red skin Verified 01/14/24 21:11 Iodinated Contrast Media Allergy Itching Verified 01/14/24 21:11 [Iodinated Contrast Media - IV Dye] prednisone Allergy Rapid Verified 01/14/24 21:11 Heart Rate Sulfa (Sulfonamide Allergy Unknown Verified 01/14/24 21:11 Antibiotics) verapamil Allergy Anaphylaxis Verified 01/14/24 21:11 celecoxib [From Celebrex] AdvReac CAUSES GI Verified 01/14/24 21:11 BLEEDING cephalexin monohydrate AdvReac Vomiting Verified 01/14/24 21:11 [From Keflex] diphenhydramine AdvReac arm burned Verified 01/14/24 21:11 [From Benadryl] when given IV Penicillins AdvReac Nausea & Verified 01/14/24 21:11 Vomiting tramadol AdvReac Nausea & Verified 01/14/24 21:11 Vomiting Physical Exam Vitals: Vital Signs Temp Pulse Resp BP Pulse Ox 01/17/24 14:00 96 18 01/17/24 11:33 98.5 F 96 18 96/62 94 L 01/17/24 08:20 97.5 F L 104 H 18 115/78 96 01/17/24 04:00 99.9 F H 116 H 18 118/72 97 01/17/24 02:00 104 H 01/17/24 00:00 104 H 18 94/59 95 01/16/24 21:35 99.1 F 01/16/24 20:00 98.7 F 88 18 106/70 97 Intake and Output 01/17/24 01/17/24 01/17/24 06:59 14:59 22:59 Intake Total 240 Output Total 250 Balance -250 240 Intake: Oral 240 Output: Urine 250 Other: # Voids 3 GENERAL DESCRIPTION: Middle-aged female lying in bed, no distress. No tachypnea or accessory muscle of respiration use. HEENT: Shows Pallor , no scleral icterus. Oral mucous membrane is dry. No pharyngeal erythema or thrush NECK: Trachea central, no thyromegaly. LUNGS: Unlabored breathing. Clear to auscultation anteriorly. No wheeze or crackle. HEART: S1, S2, regular rate and rhythm. No loud murmur ABDOMEN: Soft, no tenderness , guarding or rigidity, no organomegaly EXTREMITIES: Left antecubital fossa previous IV site with swelling redness induration SKIN: No rash, no masses palpable. NEUROLOGICAL: The patient is awake, alert, oriented x3, mood and affect normal. Results CBC & Chem 7: 01/18/24 08:36 01/22/24 06:42 Labs: Abnormal Lab Results - Last 24 Hours (Table) 01/16/24 01/16/24 01/17/24 Range/Units 16:22 20:02 01:50 Plt Count (150-450) k/uL Lymphocytes # (1.0-4.8) k/uL Sodium (137-145) mmol/L BUN (7-17) mg/dL Glucose (74-99) mg/dL POC Glucose (mg/dL) 177 H 166 H (70-110) mg/dL Urine Protein Trace H (Negative) Urine Glucose (UA) 4+ H (Negative) Ur Leukocyte Esterase Small H (Negative) Urine WBC 6 H (0-5) /hpf Ur Squamous Epith Cells 5 H (0-4) /hpf Urine Bacteria Rare H (None) /hpf Urine Mucus Rare H (None) /hpf 01/17/24 01/17/24 01/17/24 Range/Units 05:57 08:20 08:20 Plt Count 130 L (150-450) k/uL Lymphocytes # 0.5 L (1.0-4.8) k/uL Sodium 134 L (137-145) mmol/L BUN 18 H (7-17) mg/dL Glucose 193 H (74-99) mg/dL POC Glucose (mg/dL) 208 H (70-110) mg/dL Urine Protein (Negative) Urine Glucose (UA) (Negative) Ur Leukocyte Esterase (Negative) Urine WBC (0-5) /hpf Ur Squamous Epith Cells (0-4) /hpf Urine Bacteria (None) /hpf Urine Mucus (None) /hpf 01/17/24 01/17/24 Range/Units 08:20 11:52 Plt Count 144 L (150-450) k/uL Lymphocytes # 0.6 L (1.0-4.8) k/uL Sodium (137-145) mmol/L BUN (7-17) mg/dL Glucose (74-99) mg/dL POC Glucose (mg/dL) 138 H (70-110) mg/dL Urine Protein (Negative) Urine Glucose (UA) (Negative) Ur Leukocyte Esterase (Negative) Urine WBC (0-5) /hpf Ur Squamous Epith Cells (0-4) /hpf Urine Bacteria (None) /hpf Urine Mucus (None) /hpf Assessment and Plan (1) Allergy to multiple antibiotics Current Visit: Yes Status: Acute Code(s): Z88.1 - ALLERGY STATUS TO OTHER ANTIBIOTIC AGENTS SNOMED Code(s): 330264155 (2) Fever Current Visit: Yes Status: Acute Code(s): R50.9 - FEVER, UNSPECIFIED SNOMED Code(s): 826140856 (3) Left arm cellulitis Current Visit: Yes Status: Acute Code(s): L03.114 - CELLULITIS OF LEFT UPPER LIMB SNOMED Code(s): 62494537805853084 (4) Phlebitis Current Visit: Yes Status: Acute Code(s): I80.9 - PHLEBITIS AND THROMBOPHLEBITIS OF UNSPECIFIED SITE SNOMED Code(s): 04458250 Plan: 1patient with a low-grade fever source is likely left antecubital fossa IV site cellulitis which has been discontinued and likely from gram-positive skin sanjiv 2-we will obtain blood culture admission evidence of any bacteremia 3-check a Doppler ultrasound to make sure no evidence of any DVT or abscess 4-patient will be started on cefazolin to continue while waiting for the culture to finalize 5-marked area of the redness we will follow on clinical condition and cultures to further adjust medication if needed Thank you for this consultation we will follow the patient along with you Dictation was produced using [employer] dictation software. please excuse any grammatical, word or spelling errors. Time with Patient: Greater than 30
[2024-01-18 06:22] LABS: Glucose,Whole Blood 188 mg/dL (70-110)
[2024-01-18 08:58] LABS: Basophils % (A) 1 %; Eosinophils # (A) 0.1 k/uL (0-0.7); Eosinophils % (A) 1 %; HCT 38.2 % (34.0-46.0); Lymphocytes # (A) 0.7 k/uL (1.0-4.8); Lymphocytes % (A) 11 %; MCH 26.1 pg (25.0-35.0); MCHC 31.5 g/dL (31.0-37.0); MCV 82.6 fL (80.0-100.0); Mean Platelet Volume 7.1; Monocytes # (A) 0.4 k/uL (0-1.0); Monocytes % (A) 6 %; Neutrophils # (A) 4.5 k/uL (1.3-7.7); Neutrophils % (A) 78 %; Platelet Count 126 k/uL (150-450); RBC 4.62 m/uL (3.80-5.40); RDW 15.3 % (11.5-15.5); WBC 5.7 k/uL (3.8-10.6)
[2024-01-18 09:17] LABS: African American GFR (CKD) 87 (>60 ml/min/1.73 sqM); Anion Gap 8 mmol/L; Blood Urea Nitrogen 18 mg/dL (7-17); Calcium 8.4 mg/dL (8.4-10.2); Carbon Dioxide 25 mmol/L (22-30); Chloride 101 mmol/L (98-107); Glucose 169 mg/dL (74-99); Non-African American GFR(CKD) 75 (>60 ml/min/1.73 sqM); Sodium 134 mmol/L (137-145)
--- NOTE | 2024-01-18 09:40 | P.PN ---
Subjective 53-year-old female patient, history of diabetes mellitus type 2, hypertension, hyperlipidemia, coronary artery disease status post PCI of the LAD, moderate aortic stenosis. Patient states that she developed chest pain yesterday at rest, not with activiity. Pain was in the upper mid chest with radiation to the left back. Pain was somewhat simlar to previous pain requiring stent. She also broke out into a sweat. She called EMS and HR was 130s and BP 181/101. She received fenantyl and pain resolved for about 15-20 minutes. No chest pain at this time. Pain gradually went away. She states she walked to the BR in the ER and experienced sever chest pain. Patient has been started on a heparin drip. Patient is seen today in the emergency center waiting for bed on the cardiac stepdown unit. EKG sinus tachycardia 123 bpm, sinus tachycardia 119 bpm Chest x-ray: No acute process Echocardiogram performed on 10/05/2023 revealed EF of 55%, moderate to severe with mean 33 mmHg. Patient underwent nuclear stress testing which was negative for reversible ischemia -- Reports feeling exhausted from multiple episodes of nausea/vomiting and diarrhea; patient has been placed on a clear liquid diet, Protonix 40 mg twice daily; Zofran 4 mg every 6 hours as needed 01/17/2024 Patient is seen and evaluated in room at bedside; given negative stress test patient was planned to be discharged this morning; reporting abdominal pain mainly located in left upper quadrant and epigastric area with pressure in both lower quadrant; continues to report nausea but no vomiting; complaints of pain and hardness left antecubital area at previous IV site Patient had a low-grade temperature of 99.9 earlier but has resolved since then; some concern about tachycardia with heart rate around 1 15-1 16; currently heart rate of 96 with blood pressure of 96/62 and O2 saturation 94% on room air White blood count of 6.6, hemoglobin of 12.6 and platelet count of 144, sodium 134, potassium 4.1, BUNs/creatinine of 18/0.9, liver enzymes are unremarkable --Given persistent complaint of nausea and abdominal pain, we will hold discharge; will order CT of the abdomen without contrast(patient is allergic to iodine) -- We will start patient on Ancef 1 g IV every 8 hours for possible cellulitis left antecubital fossa; will order upper extremity venous Doppler to rule out DVT 01/18/2024 Patient is awake and alert She presents with chest pain which is resolved now and ethyl blender signed off the case Yesterday started developed fever, today's 101.9. Source is suspected to be left antecubital fossa cellulitis with area right pinky, warm and tender, no purulent discharge, ultrasound no DVT but showing superficial thrombophlebitis. Currently covered with cefazolin, blood cultures pending She is also on Effient. She is complaining from mild epigastric and right upper quadrant tenderness, no significant pain, no nausea vomiting but she eats little bit. No diarrhea. Objective - Vital Signs Vital signs: Vital Signs Temp 98.7 F 01/18/24 00:00 Pulse 96 01/18/24 02:00 Resp 18 01/18/24 00:00 BP 124/71 01/18/24 00:00 Pulse Ox 96 01/18/24 00:00 FiO2 Intake & Output 01/17/24 01/18/24 01/18/24 18:59 06:59 18:59 Intake Total 360 Output Total 800 Balance 360 -800 Intake: Oral 360 Output: Urine 800 Other: # Voids 4 - Exam GENERAL: The patient is alert and oriented x3, not in any acute distress. Well developed, well nourished. HEENT: Pupils are round and equally reacting to light. EOMI. No scleral icterus. No conjunctival pallor. Normocephalic, atraumatic. No pharyngeal erythema. No thyromegaly. CARDIOVASCULAR: S1 and S2 present. No murmurs, rubs, or gallops. PULMONARY: Chest is clear to auscultation, no wheezing , no crackles. ABDOMEN: Soft, nontender, nondistended, normoactive bowel sounds. No palpable organomegaly. MUSCULOSKELETAL: No joint swelling or deformity. -EXTREMITIES: No cyanosis, clubbing, or pedal edema. Left antecubital fossa with area of cellulitis, increased warmth and tenderness and redness NEUROLOGICAL: Gross neurological examination did not reveal any focal deficits. SKIN: No rashes. no petechiae. - Labs CBC & Chem 7: 01/18/24 08:36 01/18/24 08:36 Labs: Abnormal Lab Results - Last 24 Hours (Table) 01/17/24 01/17/24 01/17/24 Range/Units 08:20 11:52 16:56 Plt Count (150-450) k/uL Lymphocytes # (1.0-4.8) k/uL Sodium (137-145) mmol/L BUN (7-17) mg/dL Glucose (74-99) mg/dL POC Glucose (mg/dL) 138 H 178 H (70-110) mg/dL Hemoglobin A1c 11.0 H (<=6.0) % 01/17/24 01/18/24 01/18/24 Range/Units 20:11 06:20 08:36 Plt Count 126 L (150-450) k/uL Lymphocytes # 0.7 L (1.0-4.8) k/uL Sodium (137-145) mmol/L BUN (7-17) mg/dL Glucose (74-99) mg/dL POC Glucose (mg/dL) 212 H 188 H (70-110) mg/dL Hemoglobin A1c (<=6.0) % 01/18/24 Range/Units 08:36 Plt Count (150-450) k/uL Lymphocytes # (1.0-4.8) k/uL Sodium 134 L (137-145) mmol/L BUN 18 H (7-17) mg/dL Glucose 169 H (74-99) mg/dL POC Glucose (mg/dL) (70-110) mg/dL Hemoglobin A1c (<=6.0) % Assessment and Plan Assessment: 1. Chest pain rule out acute coronary syndrome -- We will admit to telemetry and monitor EKG and trend troponin; patient had echocardiogram completed in September 2023 which revealed an ejection fraction of 55% with moderate to severe aortic stenosis -Patient is recommended a nuclear stress test; patient is agreeable; patient is to undergo's Lexiscan stress test -- 2D echo: ef 55-60% -- resolved and pt was cleared for dc by ethyl blender 2. Left anterior antecubital fossa cellulitis with fever. - ID team on the case - Continue with cefazolin - Follow-up blood culture 3. Uncontrolled hypertension; 4. Hyperglycemia/uncontrolled diabetes mellitus; losartan 25 mg daily, metoprolol 50 mg daily 5. Hyperlipidemia; continue home dose of Zetia and Crestor 6. Hypothyroidism; levothyroxine 150 mcg daily DVT prophylaxis; SCDs
[2024-01-18 11:52] LABS: Glucose,Whole Blood 180 mg/dL (70-110)
[2024-01-18 14:17] VITALS: BMI 37.8
[2024-01-18 16:46] LABS: Glucose,Whole Blood 159 mg/dL (70-110)
[2024-01-18 20:24] LABS: Glucose,Whole Blood 185 mg/dL (70-110)
[2024-01-19 06:11] LABS: Glucose,Whole Blood 186 mg/dL (70-110)
[2024-01-19 11:59] LABS: Glucose,Whole Blood 148 mg/dL (70-110)
[2024-01-19] MEDS ORDERED: VANCOMYCIN IV PER PHARMACY 1 EACH MISC MISCELLANE PRN (14:31)
--- NOTE | 2024-01-19 14:39 | P.PN ---
Subjective Progress Note Date: 01/18/24 Principal diagnosis: Reason for follow-up is fever left antecubital fossa IV site cellulitis Patient is a 53-year-old female with a past medical history significant for CVA TIA diabetes mellitus hypertension hyperlipidemia COPD and asthma former smoker presented to the hospital for evaluation of chest pain patient has been eval by cardiology did have a negative stress test did develop fever and chills and concerning for left antecubital fossa IV site cellulitis. On today's evaluation that is 01/18/2024, patient did spike a fever last night of 101.9 F the patient has been afebrile since then, patient is breathing comfortably and is currently on room air, patient denies having any significant cough no chest pain shortness of breath, patient denies nausea vomiting or diarrhea and no abdominal pain still complaining of discomfort to the left antecubital fossa area Patient did have white count of 5.7, creatinine 0.87 Objective - Vital Signs Vital signs: Vital Signs Temp 99.0 F 01/18/24 08:00 Pulse 79 01/18/24 08:00 Resp 20 01/18/24 08:00 BP 95/64 01/18/24 08:00 Pulse Ox 99 01/18/24 08:00 FiO2 Intake & Output 01/17/24 01/18/24 01/18/24 18:59 06:59 18:59 Intake Total 360 Output Total 800 Balance 360 -800 Intake: Oral 360 Output: Urine 800 Other: # Voids 4 - Exam GENERAL DESCRIPTION: Middle-aged female lying in bed in no distress RESPIRATORY SYSTEM: Unlabored breathing , decreased breath sounds at bases HEART: S1 S2 regular rate and rhythm , ABDOMEN: Soft , no tenderness EXTREMITIES: Left antecubital fossa did have area of swelling induration and tenderness - Labs CBC & Chem 7: 01/18/24 08:36 01/18/24 08:36 Labs: Abnormal Lab Results - Last 24 Hours (Table) 01/17/24 01/17/24 01/17/24 Range/Units 08:20 16:56 20:11 Plt Count (150-450) k/uL Lymphocytes # (1.0-4.8) k/uL Sodium (137-145) mmol/L BUN (7-17) mg/dL Glucose (74-99) mg/dL POC Glucose (mg/dL) 178 H 212 H (70-110) mg/dL Hemoglobin A1c 11.0 H (<=6.0) % 01/18/24 01/18/24 01/18/24 Range/Units 06:20 08:36 08:36 Plt Count 126 L (150-450) k/uL Lymphocytes # 0.7 L (1.0-4.8) k/uL Sodium 134 L (137-145) mmol/L BUN 18 H (7-17) mg/dL Glucose 169 H (74-99) mg/dL POC Glucose (mg/dL) 188 H (70-110) mg/dL Hemoglobin A1c (<=6.0) % 01/18/24 Range/Units 11:50 Plt Count (150-450) k/uL Lymphocytes # (1.0-4.8) k/uL Sodium (137-145) mmol/L BUN (7-17) mg/dL Glucose (74-99) mg/dL POC Glucose (mg/dL) 180 H (70-110) mg/dL Hemoglobin A1c (<=6.0) % Assessment and Plan (1) Fever Current Visit: Yes Status: Acute Code(s): R50.9 - FEVER, UNSPECIFIED SNOMED Code(s): 234512689 (2) Left arm cellulitis Current Visit: Yes Status: Acute Code(s): L03.114 - CELLULITIS OF LEFT UPPER LIMB SNOMED Code(s): 39313465937902539 (3) Phlebitis Current Visit: Yes Status: Acute Code(s): I80.9 - PHLEBITIS AND THROMBOPHLEBITIS OF UNSPECIFIED SITE SNOMED Code(s): 44989004 (4) Allergy to multiple antibiotics Current Visit: Yes Status: Acute Code(s): Z88.1 - ALLERGY STATUS TO OTHER ANTIBIOTIC AGENTS SNOMED Code(s): 104614975 Plan: 1patient with a low-grade fever source is likely left antecubital fossa IV site cellulitis which has been discontinued and likely from gram-positive skin sanjiv 2-blood culture has been obtained and results are currently pending 3-Doppler ultrasound negative for DVT did mention small thrombus in the superficial venous system 4-patient to continue with the cefazolin while waiting for the culture to finalize Dictation was produced using D[employer] software. please excuse any grammatical, word or spelling errors. Time with Patient: Less than 30
--- NOTE | 2024-01-19 14:40 | P.PN ---
Subjective Progress Note Date: 01/19/24 Principal diagnosis: Reason for follow-up is fever left antecubital fossa IV site cellulitis Patient is a 53-year-old female with a past medical history significant for CVA TIA diabetes mellitus hypertension hyperlipidemia COPD and asthma former smoker presented to the hospital for evaluation of chest pain patient has been eval by cardiology did have a negative stress test did develop fever and chills and concerning for left antecubital fossa IV site cellulitis. On today's evaluation that is 01/19/2024,the patient denies any fever or any chills, patient is breathing comfortably on room air, the patient denies chest pain shortness of breath and no significant cough, patient denies abdominal pain, no nausea vomiting or diarrhea. Patient is complaining of pain to the left antecubital fossa mention not getting any better no drainage No new labs obtained today blood cultures so far pending Objective - Vital Signs Vital signs: Vital Signs Temp 98.2 F 01/19/24 09:17 Pulse 71 01/19/24 09:17 Resp 18 01/19/24 09:17 BP 97/62 01/19/24 09:17 Pulse Ox 94 L 01/19/24 09:17 FiO2 Intake & Output 01/18/24 01/19/24 01/19/24 18:59 06:59 18:59 Intake Total 1080 Output Total 1000 Balance 1080 -1000 Weight 99.79 kg Intake: Oral 1080 Output: Urine 1000 - Exam GENERAL DESCRIPTION: Middle-aged female lying in bed in no distress RESPIRATORY SYSTEM: Unlabored breathing , decreased breath sounds at bases HEART: S1 S2 regular rate and rhythm , ABDOMEN: Soft , no tenderness EXTREMITIES: Left antecubital fossa did have area of swelling induration significant drainage - Labs CBC & Chem 7: 01/18/24 08:36 01/20/24 11:21 Labs: Abnormal Lab Results - Last 24 Hours (Table) 01/18/24 01/18/24 01/18/24 Range/Units 11:50 16:44 20:23 POC Glucose (mg/dL) 180 H 159 H 185 H (70-110) mg/dL 01/19/24 Range/Units 06:10 POC Glucose (mg/dL) 186 H (70-110) mg/dL Microbiology - Last 24 Hours (Table) 01/17/24 08:20 Blood Culture - Preliminary Blood Assessment and Plan (1) Allergy to multiple antibiotics Current Visit: Yes Status: Acute Code(s): Z88.1 - ALLERGY STATUS TO OTHER ANTIBIOTIC AGENTS SNOMED Code(s): 466843701 (2) Fever Current Visit: Yes Status: Acute Code(s): R50.9 - FEVER, UNSPECIFIED SNOMED Code(s): 771948171 (3) Left arm cellulitis Current Visit: Yes Status: Acute Code(s): L03.114 - CELLULITIS OF LEFT UPPER LIMB SNOMED Code(s): 49583959065032778 Plan: 1patient with a low-grade fever source is likely left antecubital fossa IV site cellulitis which has been discontinued and likely from gram-positive skin sanjiv 2-blood culture has been obtained and results are currently pending 3-Doppler ultrasound negative for DVT did mention small thrombus in the superficial venous system 4-patient still complaining of significant discomfort to the area we will obtain local culture discontinue cefazolin and start the patient on vancomycin and see clinical response Dictation was produced using [employer] dictation software. please excuse any gr ammatical, word or spelling errors. Time with Patient: Greater than 30
[2024-01-19] MEDS: VANCOMYCIN 1,500 MG in SODIUM CHLORIDE 0.9% 500 ML 500 ML IVPB SCH (15:28)
[2024-01-19 16:21] LABS: Glucose,Whole Blood 164 mg/dL (70-110)
[2024-01-19 20:36] LABS: Glucose,Whole Blood 163 mg/dL (70-110)
--- NOTE | 2024-01-19 21:58 | P.PN ---
Subjective 53-year-old female patient, history of diabetes mellitus type 2, hypertension, hyperlipidemia, coronary artery disease status post PCI of the LAD, moderate aortic stenosis. Patient states that she developed chest pain yesterday at rest, not with activiity. Pain was in the upper mid chest with radiation to the left back. Pain was somewhat simlar to previous pain requiring stent. She also broke out into a sweat. She called EMS and HR was 130s and BP 181/101. She received fenantyl and pain resolved for about 15-20 minutes. No chest pain at this time. Pain gradually went away. She states she walked to the BR in the ER and experienced sever chest pain. Patient has been started on a heparin drip. Patient is seen today in the emergency center waiting for bed on the cardiac stepdown unit. EKG sinus tachycardia 123 bpm, sinus tachycardia 119 bpm Chest x-ray: No acute process Echocardiogram performed on 10/05/2023 revealed EF of 55%, moderate to severe with mean 33 mmHg. Patient underwent nuclear stress testing which was negative for reversible ischemia -- Reports feeling exhausted from multiple episodes of nausea/vomiting and diarrhea; patient has been placed on a clear liquid diet, Protonix 40 mg twice daily; Zofran 4 mg every 6 hours as needed 01/17/2024 Patient is seen and evaluated in room at bedside; given negative stress test patient was planned to be discharged this morning; reporting abdominal pain mainly located in left upper quadrant and epigastric area with pressure in both lower quadrant; continues to report nausea but no vomiting; complaints of pain and hardness left antecubital area at previous IV site Patient had a low-grade temperature of 99.9 earlier but has resolved since then; some concern about tachycardia with heart rate around 1 15-1 16; currently heart rate of 96 with blood pressure of 96/62 and O2 saturation 94% on room air White blood count of 6.6, hemoglobin of 12.6 and platelet count of 144, sodium 134, potassium 4.1, BUNs/creatinine of 18/0.9, liver enzymes are unremarkable --Given persistent complaint of nausea and abdominal pain, we will hold discharge; will order CT of the abdomen without contrast(patient is allergic to iodine) -- We will start patient on Ancef 1 g IV every 8 hours for possible cellulitis left antecubital fossa; will order upper extremity venous Doppler to rule out DVT 01/18/2024 Patient is awake and alert She presents with chest pain which is resolved now and requisition approver signed off the case Yesterday started developed fever, today's 101.9. Source is suspected to be left antecubital fossa cellulitis with area right pinky, warm and tender, no purulent discharge, ultrasound no DVT but showing superficial thrombophlebitis. Currently covered with cefazolin, blood cultures pending She is also on Effient. She is complaining from mild epigastric and right upper quadrant tenderness, no significant pain, no nausea vomiting but she eats little bit. No diarrhea. 01/19/2024 Patient walking in the room with no difficulty Fever have subsided blood locally to left antecubital fossa infection looks slightly worse compared to yesterday. Patient also with more discomfort Antibiotic was discontinued cefazolin and started IV vancomycin s in the state Objective - Vital Signs Vital signs: Vital Signs Temp 97.7 F 01/19/24 12:10 Pulse 75 01/19/24 12:10 Resp 18 01/19/24 12:10 BP 111/65 01/19/24 12:10 Pulse Ox 98 01/19/24 12:10 FiO2 Intake & Output 01/18/24 01/19/24 01/19/24 18:59 06:59 18:59 Intake Total 1080 Output Total 1000 Balance 1080 -1000 Weight 99.79 kg Intake: Oral 1080 Output: Urine 1000 - Exam GENERAL: The patient is alert and oriented x3, not in any acute distress. Well developed, well nourished. HEENT: Pupils are round and equally reacting to light. EOMI. No scleral icterus. No conjunctival pallor. Normocephalic, atraumatic. No pharyngeal erythema. No thyromegaly. CARDIOVASCULAR: S1 and S2 present. No murmurs, rubs, or gallops. PULMONARY: Chest is clear to auscultation, no wheezing , no crackles. ABDOMEN: Soft, nontender, nondistended, normoactive bowel sounds. No palpable organomegaly. MUSCULOSKELETAL: No joint swelling or deformity. -EXTREMITIES: No cyanosis, clubbing, or pedal edema. Left antecubital fossa with area of cellulitis, increased warmth and tenderness and redness NEUROLOGICAL: Gross neurological examination did not reveal any focal deficits. SKIN: No rashes. no petechiae. - Labs CBC & Chem 7: 01/18/24 08:36 01/18/24 08:36 Labs: Abnormal Lab Results - Last 24 Hours (Table) 01/18/24 01/18/24 01/19/24 Range/Units 16:44 20:23 06:10 POC Glucose (mg/dL) 159 H 185 H 186 H (70-110) mg/dL 01/19/24 Range/Units 11:57 POC Glucose (mg/dL) 148 H (70-110) mg/dL Microbiology - Last 24 Hours (Table) 01/17/24 08:20 Blood Culture - Preliminary Blood Assessment and Plan Assessment: 1. Chest pain rule out acute coronary syndrome -- We will admit to telemetry and monitor EKG and trend troponin; patient had echocardiogram completed in September 2023 which revealed an ejection fraction of 55% with moderate to severe aortic stenosis -Patient is recommended a nuclear stress test; patient is agreeable; patient is to undergo's Lexiscan stress test -- 2D echo: ef 55-60% -- resolved and pt was cleared for dc by requisition approver 2. Left anterior antecubital fossa cellulitis with fever. - ID team on the case - Continue with IV vancomycin - Follow-up blood culture 3. Uncontrolled hypertension; 4. Hyperglycemia/uncontrolled diabetes mellitus; losartan 25 mg daily, metoprolol 50 mg daily 5. Hyperlipidemia; continue home dose of Zetia and Crestor 6. Hypothyroidism; levothyroxine 150 mcg daily DVT prophylaxis; SCDs
[2024-01-20 06:11] LABS: Glucose,Whole Blood 121 mg/dL (70-110)
[2024-01-20 11:23] LABS: Glucose,Whole Blood 243 mg/dL (70-110)
[2024-01-20 12:26] LABS: African American GFR (CKD) >90 (>60 ml/min/1.73 sqM); Non-African American GFR(CKD) 78 (>60 ml/min/1.73 sqM)
--- NOTE | 2024-01-20 12:41 | P.PN ---
Subjective 53-year-old female patient, history of diabetes mellitus type 2, hypertension, hyperlipidemia, coronary artery disease status post PCI of the LAD, moderate aortic stenosis. Patient states that she developed chest pain yesterday at rest, not with activiity. Pain was in the upper mid chest with radiation to the left back. Pain was somewhat simlar to previous pain requiring stent. She also broke out into a sweat. She called EMS and HR was 130s and BP 181/101. She received fenantyl and pain resolved for about 15-20 minutes. No chest pain at this time. Pain gradually went away. She states she walked to the BR in the ER and experienced sever chest pain. Patient has been started on a heparin drip. Patient is seen today in the emergency center waiting for bed on the cardiac stepdown unit. EKG sinus tachycardia 123 bpm, sinus tachycardia 119 bpm Chest x-ray: No acute process Echocardiogram performed on 10/05/2023 revealed EF of 55%, moderate to severe with mean 33 mmHg. Patient underwent nuclear stress testing which was negative for reversible ischemia -- Reports feeling exhausted from multiple episodes of nausea/vomiting and diarrhea; patient has been placed on a clear liquid diet, Protonix 40 mg twice daily; Zofran 4 mg every 6 hours as needed 01/17/2024 Patient is seen and evaluated in room at bedside; given negative stress test patient was planned to be discharged this morning; reporting abdominal pain mainly located in left upper quadrant and epigastric area with pressure in both lower quadrant; continues to report nausea but no vomiting; complaints of pain and hardness left antecubital area at previous IV site Patient had a low-grade temperature of 99.9 earlier but has resolved since then; some concern about tachycardia with heart rate around 1 15-1 16; currently heart rate of 96 with blood pressure of 96/62 and O2 saturation 94% on room air White blood count of 6.6, hemoglobin of 12.6 and platelet count of 144, sodium 134, potassium 4.1, BUNs/creatinine of 18/0.9, liver enzymes are unremarkable --Given persistent complaint of nausea and abdominal pain, we will hold discharge; will order CT of the abdomen without contrast(patient is allergic to iodine) -- We will start patient on Ancef 1 g IV every 8 hours for possible cellulitis left antecubital fossa; will order upper extremity venous Doppler to rule out DVT 01/18/2024 Patient is awake and alert She presents with chest pain which is resolved now and senior linux administrator signed off the case Yesterday started developed fever, today's 101.9. Source is suspected to be left antecubital fossa cellulitis with area right pinky, warm and tender, no purulent discharge, ultrasound no DVT but showing superficial thrombophlebitis. Currently covered with cefazolin, blood cultures pending She is also on Effient. She is complaining from mild epigastric and right upper quadrant tenderness, no significant pain, no nausea vomiting but she eats little bit. No diarrhea. 01/19/2024 Patient walking in the room with no difficulty Fever have subsided blood locally to left antecubital fossa infection looks slightly worse compared to yesterday. Patient also with more discomfort Antibiotic was discontinued cefazolin and started IV vancomycin s in the state 01/20/2024 Patient left antecubital fossa cellulitis is worse today with more inflammation and redness Also there is superficial abscess which was opened, culture was obtained and is pending now Patient was switched to IV vancomycin Case was discussed with ID team We will keep monitoring. Objective - Vital Signs Vital signs: Vital Signs Temp 98.0 F 01/20/24 09:18 Pulse 74 01/20/24 09:18 Resp 15 01/20/24 09:18 BP 104/68 01/20/24 09:18 Pulse Ox 98 01/20/24 09:18 FiO2 Intake & Output 01/19/24 01/20/24 01/20/24 18:59 06:59 18:59 Intake Total 2560 500 Output Total 500 100 Balance 2060 400 Intake: Oral 2560 500 Output: Urine 500 100 - Exam GENERAL: The patient is alert and oriented x3, not in any acute distress. Well developed, well nourished. HEENT: Pupils are round and equally reacting to light. EOMI. No scleral icterus. No conjunctival pallor. Normocephalic, atraumatic. No pharyngeal erythema. No thyromegaly. CARDIOVASCULAR: S1 and S2 present. No murmurs, rubs, or gallops. PULMONARY: Chest is clear to auscultation, no wheezing , no crackles. ABDOMEN: Soft, nontender, nondistended, normoactive bowel sounds. No palpable organomegaly. MUSCULOSKELETAL: No joint swelling or deformity. -EXTREMITIES: No cyanosis, clubbing, or pedal edema. Left antecubital fossa with area of cellulitis, increased warmth and tenderness and redness NEUROLOGICAL: Gross neurological examination did not reveal any focal deficits. SKIN: No rashes. no petechiae. - Labs CBC & Chem 7: 01/18/24 08:36 01/20/24 11:21 Labs: Abnormal Lab Results - Last 24 Hours (Table) 01/19/24 01/19/24 01/20/24 Range/Units 16:20 20:34 06:10 POC Glucose (mg/dL) 164 H 163 H 121 H (70-110) mg/dL 01/20/24 Range/Units 11:21 POC Glucose (mg/dL) 243 H (70-110) mg/dL Microbiology - Last 24 Hours (Table) 01/19/24 15:35 Gram Stain - Preliminary Arm - Left 01/17/24 08:20 Blood Culture - Preliminary Blood Assessment and Plan Assessment: 1. Chest pain rule out acute coronary syndrome -- We will admit to telemetry and monitor EKG and trend troponin; patient had echocardiogram completed in September 2023 which revealed an ejection fraction of 55% with moderate to severe aortic stenosis -Patient is recommended a nuclear stress test; patient is agreeable; patient is to undergo's Lexiscan stress test -- 2D echo: ef 55-60% -- resolved and pt was cleared for dc by senior linux administrator 2. Left anterior antecubital fossa cellulitis with fever. - ID team on the case - Continue with IV vancomycin - Follow-up blood culture 3. Uncontrolled hypertension; 4. Hyperglycemia/uncontrolled diabetes mellitus; losartan 25 mg daily, metoprolol 50 mg daily 5. Hyperlipidemia; continue home dose of Zetia and Crestor 6. Hypothyroidism; levothyroxine 150 mcg daily DVT prophylaxis; SCDs
[2024-01-20 16:49] LABS: Glucose,Whole Blood 126 mg/dL (70-110)
[2024-01-20 20:38] LABS: Glucose,Whole Blood 187 mg/dL (70-110)
[2024-01-21 05:42] LABS: Glucose,Whole Blood 168 mg/dL (70-110)
[2024-01-21 07:32] LABS: African American GFR (CKD) >90 (>60 ml/min/1.73 sqM); Non-African American GFR(CKD) 86 (>60 ml/min/1.73 sqM)
[2024-01-21 11:25] LABS: Glucose,Whole Blood 167 mg/dL (70-110)
--- NOTE | 2024-01-21 14:33 | P.PN ---
Subjective 53-year-old female patient, history of diabetes mellitus type 2, hypertension, hyperlipidemia, coronary artery disease status post PCI of the LAD, moderate aortic stenosis. Patient states that she developed chest pain yesterday at rest, not with activiity. Pain was in the upper mid chest with radiation to the left back. Pain was somewhat simlar to previous pain requiring stent. She also broke out into a sweat. She called EMS and HR was 130s and BP 181/101. She received fenantyl and pain resolved for about 15-20 minutes. No chest pain at this time. Pain gradually went away. She states she walked to the BR in the ER and experienced sever chest pain. Patient has been started on a heparin drip. Patient is seen today in the emergency center waiting for bed on the cardiac stepdown unit. EKG sinus tachycardia 123 bpm, sinus tachycardia 119 bpm Chest x-ray: No acute process Echocardiogram performed on 10/05/2023 revealed EF of 55%, moderate to severe with mean 33 mmHg. Patient underwent nuclear stress testing which was negative for reversible ischemia -- Reports feeling exhausted from multiple episodes of nausea/vomiting and diarrhea; patient has been placed on a clear liquid diet, Protonix 40 mg twice daily; Zofran 4 mg every 6 hours as needed 01/17/2024 Patient is seen and evaluated in room at bedside; given negative stress test patient was planned to be discharged this morning; reporting abdominal pain mainly located in left upper quadrant and epigastric area with pressure in both lower quadrant; continues to report nausea but no vomiting; complaints of pain and hardness left antecubital area at previous IV site Patient had a low-grade temperature of 99.9 earlier but has resolved since then; some concern about tachycardia with heart rate around 1 15-1 16; currently heart rate of 96 with blood pressure of 96/62 and O2 saturation 94% on room air White blood count of 6.6, hemoglobin of 12.6 and platelet count of 144, sodium 134, potassium 4.1, BUNs/creatinine of 18/0.9, liver enzymes are unremarkable --Given persistent complaint of nausea and abdominal pain, we will hold discharge; will order CT of the abdomen without contrast(patient is allergic to iodine) -- We will start patient on Ancef 1 g IV every 8 hours for possible cellulitis left antecubital fossa; will order upper extremity venous Doppler to rule out DVT 01/18/2024 Patient is awake and alert She presents with chest pain which is resolved now and extruding department supervisor signed off the case Yesterday started developed fever, today's 101.9. Source is suspected to be left antecubital fossa cellulitis with area right pinky, warm and tender, no purulent discharge, ultrasound no DVT but showing superficial thrombophlebitis. Currently covered with cefazolin, blood cultures pending She is also on Effient. She is complaining from mild epigastric and right upper quadrant tenderness, no significant pain, no nausea vomiting but she eats little bit. No diarrhea. 01/19/2024 Patient walking in the room with no difficulty Fever have subsided blood locally to left antecubital fossa infection looks slightly worse compared to yesterday. Patient also with more discomfort Antibiotic was discontinued cefazolin and started IV vancomycin s in the state 01/20/2024 Patient left antecubital fossa cellulitis is worse today with more inflammation and redness Also there is superficial abscess which was opened, culture was obtained and is pending now Patient was switched to IV vancomycin Case was discussed with ID team We will keep monitoring. 01/21/2024 Left antecubital fossa cellulitis improving today Wound cultures growing staph. Unknown if its MRSA or MSSA therefore hold discharge till we get final results of culture Patient remains on IV vancomycin No new complaint Possible discharge soon or in 24 hours once culture results yes 4. I have 60 obtained Objective - Vital Signs Vital signs: Vital Signs Temp 98.2 F 01/21/24 13:53 Pulse 66 01/21/24 13:53 Resp 16 01/21/24 13:53 BP 105/70 01/21/24 13:53 Pulse Ox 96 01/21/24 13:53 FiO2 Intake & Output 01/20/24 01/21/24 01/21/24 18:59 06:59 18:59 Intake Total 960 240 Output Total 100 Balance 860 240 Intake: Oral 960 240 Output: Urine 100 Other: Voiding Method Toilet Toilet # Voids 2 - Exam GENERAL: The patient is alert and oriented x3, not in any acute distress. Well developed, well nourished. HEENT: Pupils are round and equally reacting to light. EOMI. No scleral icterus. No conjunctival pallor. Normocephalic, atraumatic. No pharyngeal erythema. No thyromegaly. CARDIOVASCULAR: S1 and S2 present. No murmurs, rubs, or gallops. PULMONARY: Chest is clear to auscultation, no wheezing , no crackles. ABDOMEN: Soft, nontender, nondistended, normoactive bowel sounds. No palpable organomegaly. MUSCULOSKELETAL: No joint swelling or deformity. -EXTREMITIES: No cyanosis, clubbing, or pedal edema. Left antecubital fossa with area of cellulitis, increased warmth and tenderness and redness NEUROLOGICAL: Gross neurological examination did not reveal any focal deficits. SKIN: No rashes. no petechiae. - Labs CBC & Chem 7: 01/18/24 08:36 01/21/24 06:45 Labs: Abnormal Lab Results - Last 24 Hours (Table) 01/20/24 01/20/24 01/21/24 Range/Units 16:48 20:37 05:40 POC Glucose (mg/dL) 126 H 187 H 168 H (70-110) mg/dL 01/21/24 Range/Units 11:24 POC Glucose (mg/dL) 167 H (70-110) mg/dL Microbiology - Last 24 Hours (Table) 01/19/24 15:35 Gram Stain - Preliminary Arm - Left Wound Culture - Preliminary Presumptive Staph aureus 01/17/24 08:20 Blood Culture - Preliminary Blood Assessment and Plan Assessment: 1. Chest pain rule out acute coronary syndrome -- We will admit to telemetry and monitor EKG and trend troponin; patient had echocardiogram completed in September 2023 which revealed an ejection fraction of 55% with moderate to severe aortic stenosis -Patient is recommended a nuclear stress test; patient is agreeable; patient is to undergo's Lexiscan stress test -- 2D echo: ef 55-60% -- resolved and pt was cleared for dc by extruding department supervisor 2. Left anterior antecubital fossa cellulitis with fever. - ID team on the case - Continue with IV vancomycin - Follow-up blood culture 3. Uncontrolled hypertension; 4. Hyperglycemia/uncontrolled diabetes mellitus; losartan 25 mg daily, metoprolol 50 mg daily 5. Hyperlipidemia; continue home dose of Zetia and Crestor 6. Hypothyroidism; levothyroxine 150 mcg daily DVT prophylaxis; SCDs
--- NOTE | 2024-01-21 15:23 | P.PN ---
Subjective Progress Note Date: 01/20/24 Principal diagnosis: Reason for follow-up is fever left antecubital fossa IV site cellulitis Patient is a 53-year-old female with a past medical history significant for CVA TIA diabetes mellitus hypertension hyperlipidemia COPD and asthma former smoker presented to the hospital for evaluation of chest pain patient has been eval by cardiology did have a negative stress test did develop fever and chills and concerning for left antecubital fossa IV site cellulitis. On today's evaluation that is 01/20/2024,the patient remains to be afebrile, patient is on room air not requiring supplemental oxygen and denies any shortness of breath no chest pain or cough.Patient denies having any nausea or vomiting, no abdominal pain and no diarrhea. Minimal pain to the left ant ecubital fossa minimal drainage. Patient did have a creatinine 0.84 cultures currently pending Objective - Vital Signs Vital signs: Vital Signs Temp 97.9 F 01/20/24 15:01 Pulse 68 01/20/24 15:01 Resp 15 01/20/24 15:01 BP 94/59 01/20/24 15:01 Pulse Ox 99 01/20/24 15:01 FiO2 Intake & Output 01/19/24 01/20/24 01/20/24 18:59 06:59 18:59 Intake Total 2560 720 Output Total 500 100 Balance 2060 620 Intake: Oral 2560 720 Output: Urine 500 100 - Exam GENERAL DESCRIPTION: Middle-aged female lying in bed in no distress RESPIRATORY SYSTEM: Unlabored breathing , decreased breath sounds at bases HEART: S1 S2 regular rate and rhythm , ABDOMEN: Soft , no tenderness EXTREMITIES: Left antecubital fossa did have area of swelling induration significant drainage - Labs CBC & Chem 7: 01/18/24 08:36 01/21/24 06:45 Labs: Abnormal Lab Results - Last 24 Hours (Table) 01/19/24 01/20/24 01/20/24 Range/Units 20:34 06:10 11:21 POC Glucose (mg/dL) 163 H 121 H 243 H (70-110) mg/dL 01/20/24 Range/Units 16:48 POC Glucose (mg/dL) 126 H (70-110) mg/dL Microbiology - Last 24 Hours (Table) 01/17/24 08:20 Blood Culture - Preliminary Blood 05/14/24 15:35 Gram Stain - Preliminary Arm - Left Assessment and Plan (1) Allergy to multiple antibiotics Current Visit: Yes Status: Acute Code(s): Z88.1 - ALLERGY STATUS TO OTHER ANTIBIOTIC AGENTS SNOMED Code(s): 404713398 (2) Fever Current Visit: Yes Status: Acute Code(s): R50.9 - FEVER, UNSPECIFIED SNOMED Code(s): 136665999 (3) Left arm cellulitis Current Visit: Yes Status: Acute Code(s): L03.114 - CELLULITIS OF LEFT UPPER LIMB SNOMED Code(s): 91373760747553324 Plan: 1patient with a low-grade fever source is likely left antecubital fossa IV site cellulitis which has been discontinued and likely from gram-positive skin sanjiv 2-blood culture has been obtained and results are currently pending 3-Doppler ultrasound negative for DVT did mention small thrombus in the superficial venous system 4-patient local culture currently pending continue with the vancomycin while waiting for the culture to finalize Dictation was produced using [employer] dictation software. please excuse any grammatical, word or spelling errors. Time with Patient: Less than 30
--- NOTE | 2024-01-21 15:24 | P.PN ---
Subjective Progress Note Date: 01/21/24 Principal diagnosis: Reason for follow-up is fever left antecubital fossa IV site cellulitis Patient is a 53-year-old female with a past medical history significant for CVA TIA diabetes mellitus hypertension hyperlipidemia COPD and asthma former smoker presented to the hospital for evaluation of chest pain patient has been eval by cardiology did have a negative stress test did develop fever and chills and concerning for left antecubital fossa IV site cellulitis. On today's evaluation that is 01/21/2024, the patient continues to be afebrile, the patient is on room air and breathing comfortably, the Pt denies having any chest pain or cough, the patient denies having any abdominal pain no vomiting or any diarrhea, patient still complaining of pain to the left antecubital fossa however no further drainage. Culture currently growing Staph aureus sensitivities pending creatinine 0.78 Objective - Vital Signs Vital signs: Vital Signs Temp 97.3 F L 01/21/24 07:09 Pulse 65 01/21/24 07:35 Resp 16 01/21/24 07:35 BP 94/62 01/21/24 07:09 Pulse Ox 96 01/21/24 07:09 FiO2 Intake & Output 01/20/24 01/21/24 01/21/24 18:59 06:59 18:59 Intake Total 960 Output Total 100 Balance 860 Intake: Oral 960 Output: Urine 100 Other: Voiding Method Toilet Toilet # Voids 2 - Exam GENERAL DESCRIPTION: Middle-aged female lying in bed in no distress RESPIRATORY SYSTEM: Unlabored breathing , decreased breath sounds at bases HEART: S1 S2 regular rate and rhythm , ABDOMEN: Soft , no tenderness EXTREMITIES: Left antecubital fossa did have area of swelling induration significant drainage - Labs CBC & Chem 7: 01/18/24 08:36 01/21/24 06:45 Labs: Abnormal Lab Results - Last 24 Hours (Table) 01/20/24 01/20/24 01/20/24 Range/Units 11:21 16:48 20:37 POC Glucose (mg/dL) 243 H 126 H 187 H (70-110) mg/dL 01/21/24 Range/Units 05:40 POC Glucose (mg/dL) 168 H (70-110) mg/dL Microbiology - Last 24 Hours (Table) 01/19/24 15:35 Gram Stain - Preliminary Arm - Left Wound Culture - Preliminary Presumptive Staph aureus 01/17/24 08:20 Blood Culture - Preliminary Blood Assessment and Plan (1) Allergy to multiple antibiotics Current Visit: Yes Status: Acute Code(s): Z88.1 - ALLERGY STATUS TO OTHER ANTIBIOTIC AGENTS SNOMED Code(s): 324956464 (2) Fever Current Visit: Yes Status: Acute Code(s): R50.9 - FEVER, UNSPECIFIED SNOMED Code(s): 342592982 (3) Left arm cellulitis Current Visit: Yes Status: Acute Code(s): L03.114 - CELLULITIS OF LEFT UPPER LIMB SNOMED Code(s): 10325967243545652 Plan: 1patient with a low-grade fever source is likely left antecubital fossa IV site cellulitis which has been discontinued and likely from gram-positive skin sanjiv 2-blood culture has been obtained and results are currently pending 3-Doppler ultrasound negative for DVT did mention small thrombus in the superficial venous system 4-patient local culture currently growing Staph aureus with sensitivities pending we will continue the patient on vancomycin while waiting for the culture to finalize determine discharge antibiotics Dictation was produced using [employer] dictation software. please excuse any grammatical, word or spelling errors. Time with Patient: Less than 30
[2024-01-21 16:18] LABS: Glucose,Whole Blood 156 mg/dL (70-110)
[2024-01-21] MEDS: VANCOMYCIN TROUGH DUE 1 EACH MISC MISCELLANE ONE (17:33)
[2024-01-21 21:10] LABS: Glucose,Whole Blood 146 mg/dL (70-110)
[2024-01-22] MEDS: VANCOMYCIN 1,250 MG in SODIUM CHLORIDE 0.9% 250 ML IVPB SCH (05:56)
[2024-01-22 06:22] LABS: Glucose,Whole Blood 145 mg/dL (70-110)
[2024-01-22 08:13] LABS: African American GFR (CKD) 86 (>60 ml/min/1.73 sqM); Non-African American GFR(CKD) 75 (>60 ml/min/1.73 sqM)
[2024-01-22 12:07] LABS: Glucose,Whole Blood 217 mg/dL (70-110)
[2024-01-22 15:19] VITALS: BP 103/65; PULSE 70; RESP 18; TEMP 97.9
--- NOTE | 2024-01-22 16:03 | P.PN ---
Subjective Progress Note Date: 01/22/24 Principal diagnosis: Reason for follow-up is fever left antecubital fossa IV site cellulitis Patient is a 53-year-old female with a past medical history significant for CVA TIA diabetes mellitus hypertension hyperlipidemia COPD and asthma former smoker presented to the hospital for evaluation of chest pain patient has been eval by cardiology did have a negative stress test did develop fever and chills and concerning for left antecubital fossa IV site cellulitis. On today's evaluation that is 01/22/2024, Patient is afebrile patient is currently on room air and denies having any shortness of breath, the patient denies any chest pain or cough, the patient denies any nausea vomiting did not have any abdominal pain and no diarrhea, pain to the left antecubital fossa has decreased no further drainage. Patient did have a creatinine 0.88 culture positive with MSSA Objective - Vital Signs Vital signs: Vital Signs Temp 97.8 F 01/22/24 08:16 Pulse 62 01/22/24 08:16 Resp 17 01/22/24 08:16 BP 109/66 01/22/24 08:16 Pulse Ox 98 01/22/24 08:16 FiO2 Intake & Output 01/21/24 01/22/24 01/22/24 18:59 06:59 18:59 Intake Total 1745 Balance 1745 Intake: Intake, IV Titration 500 Amount Vancomycin 1,500 mg In 500 Sodium Chloride 0.9% 500 ml 500 ml @ 167 mls/hr IVPB Q12H MICHAEL Rx#: [id number] Oral 1245 Other: Voiding Method Toilet Toilet # Voids 3 - Exam GENERAL DESCRIPTION: Middle-aged female lying in bed in no distress RESPIRATORY SYSTEM: Unlabored breathing , decreased breath sounds at bases HEART: S1 S2 regular rate and rhythm , ABDOMEN: Soft , no tenderness EXTREMITIES: Left antecubital fossa did have area of swelling induration sig nificant drainage - Labs CBC & Chem 7: 01/18/24 08:36 01/22/24 06:42 Labs: Abnormal Lab Results - Last 24 Hours (Table) 01/21/24 01/21/24 01/21/24 Range/Units 11:24 16:12 21:08 POC Glucose (mg/dL) 167 H 156 H 146 H (70-110) mg/dL 05/17/24 Range/Units 06:21 POC Glucose (mg/dL) 145 H (70-110) mg/dL Microbiology - Last 24 Hours (Table) 01/19/24 15:35 Gram Stain - Final Arm - Left Wound Culture - Final Staphylococcus aureus 01/20/24 12:15 Gram Stain - Preliminary Arm - Left Wound Culture - Preliminary Presumptive Staph aureus Assessment and Plan (1) Allergy to multiple antibiotics Current Visit: Yes Status: Acute Code(s): Z88.1 - ALLERGY STATUS TO OTHER ANTIBIOTIC AGENTS SNOMED Code(s): 331886469 (2) Fever Current Visit: Yes Status: Acute Code(s): R50.9 - FEVER, UNSPECIFIED SNOMED Code(s): 014332522 (3) Left arm cellulitis Current Visit: Yes Status: Acute Code(s): L03.114 - CELLULITIS OF LEFT UPPER LIMB SNOMED Code(s): 41323996318942389 Plan: 1patient with a low-grade fever source is likely left antecubital fossa IV site cellulitis which has been discontinued and likely from gram-positive skin sanjiv 2-blood culture has been obtained and results are currently pending 3-Doppler ultrasound negative for DVT did mention small thrombus in the superficial venous system 4-patient local culture grew MSSA patient did have a cephalexin allergy listed as nausea vomiting patient mention she will be able to take it with Zofran prescription for Zofran has been provided by admitting team prescription for oral Keflex sent to the pharmacy and close outpatient follow-up Dictation was produced using [employer] dictation software. please excuse any grammatical, word or spelling errors. Time with Patient: Less than 30
[2024-01-23] MEDS ORDERED: VANCOMYCIN TROUGH DUE 1 EACH MISC MISCELLANE ONE (05:00)
--- NOTE | 2024-02-05 16:50 | P.DS ---
Providers Date of admission: 01/14/24 20:53 Attending physician: Ciro Flores Consults: 01/17/24 14:18 Consult Physician Urgent Consulting Provider: Tommy Andrews Consult Reason/Comments: fever, chills Do you want consulting provider notified?: Yes Primary care physician: Cuca Zuni Hospital Course: Diagnoses: 1. Chest pain rule out acute coronary syndrome, improved, evaluated by clinical education consultant and cleared for discharge 2. Left anterior antecubital fossa cellulitis with fever. Wound cultures growing MSSA and patient is cleared for discharge by ID team 3. Uncontrolled hypertension; better controlled upon discharge 4. Hyperglycemia/uncontrolled diabetes mellitus; losartan 25 mg daily, metoprolol 50 mg daily 5. Hyperlipidemia; continue home dose of Zetia and Crestor 6. Hypothyroidism; levothyroxine 150 mcg daily Hospital course: 53-year-old female patient, history of diabetes mellitus type 2, hypertension, hyperlipidemia, coronary artery disease status post PCI of the LAD, moderate aortic stenosis. Patient states that she developed chest pain yesterday at rest, not with activiity. Pain was in the upper mid chest with radiation to the left back. Pain was somewhat simlar to previous pain requiring stent. She also broke out into a sweat. She called EMS and HR was 130s and BP 181/101. Echocardiogram performed on 10/05/2023 revealed EF of 55%, moderate to severe with mean 33 mmHg. Patient evaluated by clinical education consultant negative for discharge. Patient chest pain improved and denies any other symptoms significant dyspnea or change in urine or bowel habits However patient developed cellulitis in the left antecubital fossa at the site of IV access Hep-Lock Ultrasound was negative for DVT. She was treated with IV antibiotic cefazolin and then switched to IV vancomycin with ID team recommendation Wound culture was growing MSSA. Patient showed interval improvement Patient was cleared for discharge per ID team as well as clinical education consultant Patient will be discharged on oral antibiotic per ID team recommendation Problems and management plan were discussed with the patient and he verbalized understanding and acceptance Patient was found stable and can be discharged home in guarded prognosis however he needs follow-up as an outpatient. Patient was instructed to follow up with PCP Dr. Padilla within one week and patient agrees Patient was instructed to follow-up with Dr. Shea from ID team in 1 week and clinical education consultant Dr. Beck in 1 to 2 weeks and she agrees Physical exam Gen: patient is a AAOx3, no distress CVS: S1-S2, RRR, no murmur Lungs: B/L CTA, no wheezing Abdomen: soft, no distention, no tenderness, positive bowel sounds Extremity: no leg edema or induration. Improved left antecubital fossa cellulitis Time spent more than 35 minutes Patient Condition at Discharge: Serious Plan - Discharge Summary New Discharge Prescriptions: New Ondansetron [Zofran] 4 mg PO Q8HR PRN 4 Days #10 tab PRN Reason: Nausea And Vomiting Continue Montelukast [Singulair] 10 mg PO HS Losartan Potassium [Cozaar] 25 mg PO DAILY PARoxetine HCL [Paxil] 40 mg PO DAILY Insulin Glargine,Hum.rec.anlog [Lantus Solostar Pen] 50 units SQ HS oxyCODONE-APAP 5-325MG [Percocet 5-325 mg] 1 tab PO TID tiZANidine [Zanaflex] 4 mg PO HS Tirzepatide [Mounjaro] 2.5 mg SQ TU Nystatin 100,000 Unit/gm Powd [Mycostatin Powder] 1 applic TOPICAL BID Metoprolol Succinate (ER) [Toprol XL] 50 mg PO DAILY metFORMIN HCL 1,000 mg PO BID Furosemide [Lasix] 20 mg PO DAILY Ezetimibe [Zetia] 10 mg PO HS Atorvastatin [Lipitor] 40 mg PO HS Insulin Aspart [NovoLOG Flexpen] 15 units SQ AC-TID Empagliflozin [Jardiance] 10 mg PO DAILY Insulin Aspart [NovoLOG Flexpen] See Protocol SQ AC-TID Omeprazole [PriLOSEC] 20 mg PO DAILY Prasugrel [Effient] 10 mg PO DAILY #90 tablet Spironolactone [Aldactone] 25 mg PO DAILY Levothyroxine Sodium 150 mcg PO DAILY Isosorbide Mononitrate ER [Imdur] 30 mg PO DAILY Fluticasone Nasal [place] [Flonase Nasal [place]] 2 spr EA NOSTRIL HS Ergocalciferol [Vitamin D2 (1250 Mcg = 11696 Iu)] 1,250 mcg PO TU Diclofenac Sodium Gel [Voltaren 1% Gel] 1 applic TOPICAL BID PRN PRN Reason: Pain Butalb/APAP/Caff 50-325-40Mg [Fioricet 50-325-40] 1 tab PO BID PRN PRN Reason: Pain No Action Doxycycline [Vibramycin] 100 mg PO BID 7 Days #14 capsule Discharge Medication List Montelukast [Singulair] 10 mg PO HS 04/16/17 [History] Losartan Potassium [Cozaar] 25 mg PO DAILY 06/24/17 [History] PARoxetine HCL [Paxil] 40 mg PO DAILY 12/27/18 [History] Insulin Aspart [NovoLOG Flexpen] 15 units SQ AC-TID 04/30/22 [History] Empagliflozin [Jardiance] 10 mg PO DAILY 01/13/23 [History] Insulin Aspart [NovoLOG Flexpen] See Protocol SQ AC-TID 01/13/23 [History] Insulin Glargine,Hum.rec.anlog [Lantus Solostar Pen] 50 units SQ HS 01/13/23 [History] Omeprazole [PriLOSEC] 20 mg PO DAILY 01/13/23 [History] oxyCODONE-APAP 5-325MG [Percocet 5-325 mg] 1 tab PO TID 01/13/23 [History] tiZANidine [Zanaflex] 4 mg PO HS 01/13/23 [History] Prasugrel [Effient] 10 mg PO DAILY #90 tablet 01/14/23 [Rx] Atorvastatin [Lipitor] 40 mg PO HS 01/14/24 [History] Butalb/APAP/Caff 50-325-40Mg [Fioricet 50-325-40] 1 tab PO BID PRN 01/14/24 [History] Diclofenac Sodium Gel [Voltaren 1% Gel] 1 applic TOPICAL BID PRN 01/14/24 [History] Ergocalciferol [Vitamin D2 (1250 Mcg = 52731 Iu)] 1,250 mcg PO TU 01/14/24 [History] Ezetimibe [Zetia] 10 mg PO HS 01/14/24 [History] Fluticasone Nasal [place] [Flonase Nasal [place]] 2 spr EA NOSTRIL HS 01/14/24 [History] Furosemide [Lasix] 20 mg PO DAILY 01/14/24 [History] Isosorbide Mononitrate ER [Imdur] 30 mg PO DAILY 01/14/24 [History] Levothyroxine Sodium 150 mcg PO DAILY 01/14/24 [History] Metoprolol Succinate (ER) [Toprol XL] 50 mg PO DAILY 01/14/24 [History] Nystatin 100,000 Unit/gm Powd [Mycostatin Powder] 1 applic TOPICAL BID 01/14/24 [History] Spironolactone [Aldactone] 25 mg PO DAILY 01/14/24 [History] Tirzepatide [Mounjaro] 2.5 mg SQ TU 01/14/24 [History] metFORMIN HCL 1,000 mg PO BID 01/14/24 [History] Ondansetron [Zofran] 4 mg PO Q8HR PRN 4 Days #10 tab 01/17/24 [Rx] Doxycycline [Vibramycin] 100 mg PO BID 7 Days #14 capsule 02/02/24 [Rx] Follow up Appointment(s)/Referral(s): Reilly Beck MD [STAFF PHYSICIAN] - 02/09/24 1:45 pm ([facility]) Cuca Iqbal MD [Primary Care Provider] - 1-2 days (Please call office Thursday for your appointment,) Tommy Andrews MD [STAFF PHYSICIAN] - 1 Week (Office closed. Please call Office Thursday for appointment) Activity/Diet/Wound Care/Special Instructions: heart healthy diet activity is restricted till you see your doctor Discharge Disposition: HOME SELF-CARE
== END 2024-01-22 16:37 | disposition home or self-care (01) | DRG 199 ==
LOC: EC 18:08 → 3SCARD 20:53 → 4SSUR 01-20 17:01
PROVIDERS: ADMIT Hospitalist; ATTEND Hospitalist
DX: I10 Essential (primary) hypertension (principal); E89.0 Postprocedural hypothyroidism; E78.00 Pure hypercholesterolemia, unspecified; F32.A Depression, unspecified; F41.0 Panic disorder [episodic paroxysmal anxiety]; I25.10 Atherosclerotic heart disease of native coronary artery without angina pectoris; I35.0 Nonrheumatic aortic (valve) stenosis; I80.9 Phlebitis and thrombophlebitis of unspecified site; L03.114 Cellulitis of left upper limb; T82.7XXA Infection and inflammatory reaction due to other cardiac and vascular devices, implants and grafts, initial encounter; Y84.8 Other medical procedures as the cause of abnormal reaction of the patient, or of later complication, without mention of misadventure at the time of the procedure; E11.40 Type 2 diabetes mellitus with diabetic neuropathy, unspecified; E11.65 Type 2 diabetes mellitus with hyperglycemia; R00.0 Tachycardia, unspecified; B95.61 Methicillin susceptible Staphylococcus aureus infection as the cause of diseases classified elsewhere; Z79.02 Long term (current) use of antithrombotics/antiplatelets; Z79.4 Long term (current) use of insulin; Z79.84 Long term (current) use of oral hypoglycemic drugs; Z79.890 Hormone replacement therapy; Z79.899 Other long term (current) drug therapy; Z91.041 Radiographic dye allergy status; Z82.49 Family history of ischemic heart disease and other diseases of the circulatory system; Z86.73 Personal history of transient ischemic attack (TIA), and cerebral infarction without residual deficits; Z88.5 Allergy status to narcotic agent; Z98.61 Coronary angioplasty status; Z88.0 Allergy status to penicillin; Z88.2 Allergy status to sulfonamides; Z88.8 Allergy status to other drugs, medicaments and biological substances; Z88.6 Allergy status to analgesic agent; Z88.1 Allergy status to other antibiotic agents; Z71.3 Dietary counseling and surveillance
CPT/HCPCS: 36415; 71046; 74176; 78452; 80048; 80053; 80202; 81001; 82565; 83036; 83605; 83690; 83735; 84484; 85025; 85379; 85610; 85730; 87040; 87070; 87077; 87186; 87205; 93005; 93017; 93306; 96374; 96375; 96376; 99291

== ENCOUNTER 2024-01-29 15:55 | Observation (INO) | payer OTHER ==
--- NOTE | 2024-01-29 16:57 | ED ---
Extremity Problem HPI - General Chief complaint: Recheck/Abnormal Lab/Rx Stated complaint: infection Time Seen by Provider: 01/29/24 16:56 Source: patient, RN notes reviewed Mode of arrival: ambulatory Limitations: no limitations - History of Present Illness Initial comments: This is a 53-year-old female who presents to the emergency department for left arm pain. States that when she woke up she had pain in the left arm seem to radiate distally. She is scheduled to finish a course of Keflex for a staph infection tomorrow. She was recently discharged from the hospital, at which time she was diagnosed with cellulitis in the left arm in the area of an IV site. States that she is having difficulty fully opening and closing her hand secondary to pain and swelling. Denies any fevers or chills. She has noticed a bump in the left antecubital fossa that she states is starting to drain pus. MD Complaint: extremity pain - Related Data Home Medications Medication Instructions Recorded Confirmed Montelukast [Singulair] 10 mg PO HS 04/16/17 01/29/24 Losartan Potassium [Cozaar] 25 mg PO DAILY 06/24/17 01/29/24 PARoxetine HCL [Paxil] 40 mg PO DAILY 12/27/18 01/29/24 Insulin Aspart [NovoLOG Flexpen] 15 units SQ AC-TID 04/30/22 01/29/24 Empagliflozin [Jardiance] 10 mg PO DAILY 01/13/23 01/29/24 Insulin Aspart [NovoLOG Flexpen] See Protocol SQ AC-TID 01/13/23 01/29/24 Insulin Glargine,Hum.rec.anlog 50 units SQ HS 01/13/23 01/29/24 [Lantus Solostar Pen] Omeprazole [PriLOSEC] 20 mg PO DAILY 01/13/23 01/29/24 oxyCODONE-APAP 5-325MG [Percocet 1 tab PO TID 01/13/23 01/29/24 5-325 mg] tiZANidine [Zanaflex] 4 mg PO HS 01/13/23 01/29/24 Atorvastatin [Lipitor] 40 mg PO HS 01/14/24 01/29/24 Butalb/APAP/Caff 50-325-40Mg 1 tab PO BID PRN 01/14/24 01/29/24 [Fioricet 50-325-40] Diclofenac Sodium Gel [Voltaren 1% 1 applic TOPICAL BID PRN 01/14/24 01/29/24 Gel] Ergocalciferol [Vitamin D2 (1250 1,250 mcg PO TU 01/14/24 01/29/24 Mcg = 43919 Iu)] Ezetimibe [Zetia] 10 mg PO HS 01/14/24 01/29/24 Fluticasone Nasal [place] [Flonase 2 spr EA NOSTRIL HS 01/14/24 01/29/24 Nasal [place]] Furosemide [Lasix] 20 mg PO DAILY 01/14/24 01/29/24 Isosorbide Mononitrate ER [Imdur] 30 mg PO DAILY 01/14/24 01/29/24 Levothyroxine Sodium 150 mcg PO DAILY 01/14/24 01/29/24 Metoprolol Succinate (ER) [Toprol 50 mg PO DAILY 01/14/24 01/29/24 XL] Nystatin 100,000 Unit/gm Powd 1 applic TOPICAL BID 01/14/24 01/29/24 [Mycostatin Powder] Spironolactone [Aldactone] 25 mg PO DAILY 01/14/24 01/29/24 Tirzepatide [Mounjaro] 2.5 mg SQ TU 01/14/24 01/29/24 metFORMIN HCL 1,000 mg PO BID 01/14/24 01/29/24 Previous Rx's Medication Instructions Recorded Prasugrel [Effient] 10 mg PO DAILY #90 tablet 01/14/23 Ondansetron [Zofran] 4 mg PO Q8HR PRN 4 Days #10 tab 01/17/24 Cephalexin [Keflex] 500 mg PO Q8HR 7 Days #21 cap 01/22/24 Allergies Allergy/AdvReac Type Severity Reaction Status Date / Time adhesive Allergy red skin Verified 01/29/24 20:52 Iodinated Contrast Media Allergy Itching Verified 01/29/24 20:52 [Iodinated Contrast Media - IV Dye] prednisone Allergy Rapid Verified 01/29/24 20:52 Heart Rate, Panic attack Sulfa (Sulfonamide Allergy Unknown Verified 01/29/24 20:52 Antibiotics) verapamil Allergy Anaphylaxis Verified 01/29/24 20:52 celecoxib [From Celebrex] AdvReac CAUSES GI Verified 01/29/24 20:52 BLEEDING cephalexin monohydrate AdvReac Vomiting Verified 01/29/24 20:52 [From Keflex] diphenhydramine AdvReac arm burned Verified 01/29/24 20:52 [From Benadryl] when given IV Penicillins AdvReac Nausea & Verified 01/29/24 20:52 Vomiting tramadol AdvReac Nausea & Verified 01/29/24 20:52 Vomiting Review of Systems ROS Statement: Those systems with pertinent positive or pertinent negative responses have been documented in the HPI. ROS Other: All systems not noted in ROS Statement are negative. Past Medical History Past Medical History: Asthma, Chest Pain / Angina, COPD, CVA/TIA, Diabetes Mellitus, Hyperlipidemia, Hypertension Additional Past Medical History / Comment(s): neuoropathy, RT CATARACT TIA History of Any Multi-Drug Resistant Organisms: None Reported Past Surgical History: Adenoidectomy, Cholecystectomy, Heart Catheterization With Stent, Tonsillectomy Additional Past Surgical History / Comment(s): D&C, carpal tunnel surgery left , LT ARM SX FOR "PINCHED NERVE", LT THUMB TRIGGER FINGER, rae neuroma removed left foot, heart cath 2015 , right ankle fx 01/2018 no surgery , LT CATARACT REMOVED WITH LENS IMPLANT thyroidectomy Past Anesthesia/Blood Transfusion Reactions: Previous Problems w/ Anesthesia, Motion Sickness Additional Past Anesthesia/Blood Transfusion Reaction / Comment(s): difficulty waking from anesthesia Date of Last Stent Placement:: 2022 Past Psychological History: Anxiety, Depression, Panic Disorder Smoking Status: Former smoker Past Alcohol Use History: Occasional Past Drug Use History: None Reported - Past Family History Father Family Medical History: Cancer Additional Family Medical History / Comment(s): skin Mother Family Medical History: Diabetes Mellitus, Hypertension, Osteoarthritis (OA) Additional Family Medical History / Comment(s): MURMUR Sister(s) Family Medical History: Cancer Additional Family Medical History / Comment(s): ovarian General Exam Limitations: no limitations General appearance: alert, in no apparent distress Head exam: Present: atraumatic, normocephalic, normal inspection Respiratory exam: Present: normal lung sounds bilaterally. Absent: respiratory distress, wheezes, rales, rhonchi, stridor Cardiovascular Exam: Present: regular rate, normal rhythm, normal heart sounds. Absent: systolic murmur, diastolic murmur, rubs, gallop, clicks Extremities exam: Present: other (Generalized swelling to the left upper extremity with a papular lesion in the antecubital fossa containing minor active drainge. 2+ radial pulses.) Neurological exam: Present: alert, oriented X3, CN II-XII intact Psychiatric exam: Present: normal affect, normal mood Skin exam: Present: warm, dry, intact, normal color. Absent: rash Course Vital Signs 01/29/24 01/29/24 01/29/24 16:14 21:40 23:21 Temperature 98.2 F Pulse Rate 91 83 88 Respiratory 18 Rate Blood Pressure 106/75 98/61 87/51 O2 Sat by Pulse 99 Oximetry 01/30/24 01/30/24 01/30/24 00:00 00:07 00:35 Temperature 97.6 F Pulse Rate 80 86 86 Respiratory 18 18 Rate Blood Pressure 83/46 78/44 88/55 O2 Sat by Pulse 96 95 96 Oximetry 01/30/24 01/30/24 01/30/24 00:50 00:57 01:10 Temperature Pulse Rate 80 82 82 Respiratory 16 18 16 Rate Blood Pressure 78/56 83/58 81/54 O2 Sat by Pulse 98 98 Oximetry 01/30/24 01/30/24 01/30/24 03:00 03:10 04:35 Temperature Pulse Rate 82 82 75 Respiratory 18 18 17 Rate Blood Pressure 83/67 90/60 96/63 O2 Sat by Pulse 100 98 95 Oximetry 01/30/24 01/30/24 01/30/24 05:00 05:30 06:00 Temperature Pulse Rate 77 75 74 Respiratory 18 14 16 Rate Blood Pressure 79/56 91/62 103/63 O2 Sat by Pulse 96 95 96 Oximetry 01/30/24 01/30/24 01/30/24 06:30 07:00 07:30 Temperature Pulse Rate 71 81 86 Respiratory 14 14 17 Rate Blood Pressure 86/59 89/52 112/69 O2 Sat by Pulse 97 95 98 Oximetry 01/30/24 01/30/24 01/30/24 08:00 08:30 10:00 Temperature Pulse Rate 79 83 93 Respiratory 16 17 16 Rate Blood Pressure 132/85 131/80 107/67 O2 Sat by Pulse 96 97 97 Oximetry 01/30/24 01/30/24 01/30/24 11:00 15:00 17:00 Temperature Pulse Rate 87 72 73 Respiratory 18 20 20 Rate Blood Pressure 96/60 117/77 121/76 O2 Sat by Pulse 97 97 97 Oximetry 01/30/24 01/30/24 18:00 19:59 Temperature 98.3 F Pulse Rate 74 73 Respiratory 20 18 Rate Blood Pressure 115/72 142/91 O2 Sat by Pulse 97 97 Oximetry Medical Decision Making - Medical Decision Making This is a 53 year old female who presents to the emergency department for left arm pain. Was pt. sent in by a medical professional or institution? @ -No Did you speak to anyone other than the patient for history? @ -No Did you review nursing and triage notes? @ -Yes, and I agree, it is accurate with regards to the patient's symptoms. Were old charts reviewed? @ -Gram stain from 01/19/24 which was positive for Staph aureus. Differential Diagnosis? @ -Differential Musculoskeletal: Muscular strain, contusion, ligament sprain, fracture, arthritis, septic arthritis, bursitis, cellulitis, muscle spasm, nerve compression, DVT, arterial occlusion, herpes zoster, electrolyte abnormality, tumor.... This is not meant to be in all inclusive list EKG interpreted by me (3pts min.)? @ -EKG interpreted by me demonstrating the following: Sinus rhythm. Ventricular rate 87 bpm, GA interval 154 ms, QRS duration 80 ms, QTc 390 ms. X-rays interpreted by me (1pt min.)? @ -Not obtained CT interpreted by me (1pt min.)? @ -CT scan of the left upper extremity obtained. My interpretation identifies no evidence of abscess formation. U/S interpreted by me (1pt. min.)? @ -Duplex ultrasound of the left upper extremity obtained. My interpretation identifies no evidence of a DVT. What testing was considered but not performed? (CT, X-rays, U/S, labs)? Why? @ -None What meds were considered but not given? Why? @ -None Did you discuss the management of the patient with other professionals? @ -No Did you reconcile home meds? @ -Yes Was smoking cessation discussed for >3mins.? @ -No Was critical care preformed (if so, how long)? @ -No Were there social determinants of health that impacted care today? How? (Homelessness, low income, unemployed, alcoholism, drug addiction, transportation, low edu. Level, literacy, decrease access to med. care, fci, rehab)? @ -No Was there de-escalation of care discussed even if they declined? (Discuss DNR or withdrawal of care, Hospice)? @ -No What co-morbidities impacted this encounter? (DM, HTN, Smoking, COPD, CAD, Cancer, CVA, Hep., AIDS, mental health diagnosis, sleep apnea, morbid obesity)? @ -DM, HLD, HTN Was patient admitted / discharged? @ -Admitted. Lab work demonstrates leukocytosis with white blood cell count of 11.5. Lactic acid elevated at 3.5. CRP mildly elevated at 1.0. Duplex ultrasound of the left upper extremity demonstrates no evidence of a DVT. There is superficial left upper extremity venous thrombosis in the cephalic vein at the antecubital fossa. CT scan of the left upper extremity demonstrates findings in the region of the left elbow suggestive of edema and cellulitis. There is no focal collection seen to suggest an abscess. Patient did start to become hypotensive in the emergency department with blood pressures in the 80s- 90s systolically, and states that it started to make her feel dizzy and weak. Given these lab abnormalities and the patient's symptoms with associated hypotension, she was admitted to medicine for further management. Blood cultures were obtained and she was started on cefepime and vancomycin. Consult placed for infectious disease. Undiagnosed new problem with uncertain prognosis? @ -None Drug Therapy requiring intensive monitoring for toxicity (Heparin, Nitro, Insulin, Cardizem)? @ -None Were any procedures done? @ -None Diagnosis/symptom? @ -Left upper extremity cellulitis, hypotension Acute, or Chronic, or Acute on Chronic? @ -Acute Uncomplicated (without systemic symptoms) or Complicated (systemic symptoms)? @ -Complicated Side effects of treatment? @ -None Exacerbation, Progression, or Severe Exacerbation] @ -Progression Poses a threat to life or bodily function? @ -Yes This case was discussed in detail with the attending ED physician, Dr. Das. Presentation, findings, and treatment plan discussed in detail as well. - Lab Data Result diagrams: 01/29/24 17:32 01/29/24 17:32 Lab Results 01/29/24 01/29/24 01/29/24 Range/Units 17:32 17:32 17:32 WBC 11.5 H (3.8-10.6) k/uL RBC 5.03 (3.80-5.40) m/uL Hgb 13.0 (11.4-16.0) gm/dL Hct 41.5 (34.0-46.0) % MCV 82.6 (80.0-100.0) fL MCH 25.9 (25.0-35.0) pg MCHC 31.3 (31.0-37.0) g/dL RDW 15.4 (11.5-15.5) % Plt Count 270 D (150-450) k/uL MPV 7.6 Neutrophils % 74 % Lymphocytes % 15 % Monocytes % 5 % Eosinophils % 4 % Basophils % 0 % Neutrophils # 8.5 H (1.3-7.7) k/uL Lymphocytes # 1.8 (1.0-4.8) k/uL Monocytes # 0.6 (0-1.0) k/uL Eosinophils # 0.4 (0-0.7) k/uL Basophils # 0.0 (0-0.2) k/uL Hypochromasia Slight ESR 58 H (0-30) mm/Hr PT (10.0-12.5) sec INR (<1.2) APTT (22.0-30.0) sec Sodium 138 (137-145) mmol/L Potassium 4.5 (3.5-5.1) mmol/L Chloride 104 (98-107) mmol/L Carbon Dioxide 20 L (22-30) mmol/L Anion Gap 14 mmol/L BUN 20 H (7-17) mg/dL Creatinine 0.87 (0.52-1.04) mg/dL Est GFR (CKD-EPI)AfAm 87 (>60 ml/min/1.73 sqM) Est GFR (CKD-EPI)NonAf 75 (>60 ml/min/1.73 sqM) Glucose 288 H (74-99) mg/dL Lactic Ac Sepsis Rflx Plasma Lactic Acid Wil 3.5 H* (0.7-2.0) mmol/L Calcium 9.3 (8.4-10.2) mg/dL Total Bilirubin 0.7 (0.2-1.3) mg/dL AST 32 (14-36) U/L ALT 24 (4-34) U/L Alkaline Phosphatase 95 (38-126) U/L Troponin I (0.000-0.034) ng/mL C-Reactive Protein 1.0 H (<1.0) mg/dL Total Protein 7.7 (6.3-8.2) g/dL Albumin 4.5 (3.5-5.0) g/dL 01/29/24 01/29/24 01/29/24 Range/Units 17:32 17:32 18:17 WBC (3.8-10.6) k/uL RBC (3.80-5.40) m/uL Hgb (11.4-16.0) gm/dL Hct (34.0-46.0) % MCV (80.0-100.0) fL MCH (25.0-35.0) pg MCHC (31.0-37.0) g/dL RDW (11.5-15.5) % Plt Count (150-450) k/uL MPV Neutrophils % % Lymphocytes % % Monocytes % % Eosinophils % % Basophils % % Neutrophils # (1.3-7.7) k/uL Lymphocytes # (1.0-4.8) k/uL Monocytes # (0-1.0) k/uL Eosinophils # (0-0.7) k/uL Basophils # (0-0.2) k/uL Hypochromasia ESR (0-30) mm/Hr PT 11.0 (10.0-12.5) sec INR 1.0 (<1.2) APTT 24.3 (22.0-30.0) sec Sodium (137-145) mmol/L Potassium (3.5-5.1) mmol/L Chloride (98-107) mmol/L Carbon Dioxide (22-30) mmol/L Anion Gap mmol/L BUN (7-17) mg/dL Creatinine (0.52-1.04) mg/dL Est GFR (CKD-EPI)AfAm (>60 ml/min/1.73 sqM) Est GFR (CKD-EPI)NonAf (>60 ml/min/1.73 sqM) Glucose (74-99) mg/dL Lactic Ac Sepsis Rflx Y Plasma Lactic Acid Wil (0.7-2.0) mmol/L Calcium (8.4-10.2) mg/dL Total Bilirubin (0.2-1.3) mg/dL AST (14-36) U/L ALT (4-34) U/L Alkaline Phosphatase (38-126) U/L Troponin I <0.012 (0.000-0.034) ng/mL C-Reactive Protein (<1.0) mg/dL Total Protein (6.3-8.2) g/dL Albumin (3.5-5.0) g/dL - Radiology Data Radiology results: report reviewed, image reviewed Disposition Clinical Impression: Left arm cellulitis, Hypotension Disposition: ADMITTED IP TO THIS [facility] Time of Disposition: 10:11
[2024-01-29 17:59] LABS: Basophils % (A) 0 %; Eosinophils # (A) 0.4 k/uL (0-0.7); Eosinophils % (A) 4 %; HCT 41.5 % (34.0-46.0); Hypochromasia Slight; Lymphocytes # (A) 1.8 k/uL (1.0-4.8); Lymphocytes % (A) 15 %; MCH 25.9 pg (25.0-35.0); MCHC 31.3 g/dL (31.0-37.0); MCV 82.6 fL (80.0-100.0); Mean Platelet Volume 7.6; Monocytes # (A) 0.6 k/uL (0-1.0); Monocytes % (A) 5 %; Neutrophils # (A) 8.5 k/uL (1.3-7.7); Neutrophils % (A) 74 %; RBC 5.03 m/uL (3.80-5.40); RDW 15.4 % (11.5-15.5); WBC 11.5 k/uL (3.8-10.6)
[2024-01-29 18:00] LABS: Platelet Count 270 k/uL (150-450)
[2024-01-29 18:01] LABS: Partial Thromboplastin Time 24.3 sec (22.0-30.0)
[2024-01-29 18:06] LABS: ALT 24 U/L (4-34); AST 32 U/L (14-36); African American GFR (CKD) 87 (>60 ml/min/1.73 sqM); Albumin 4.5 g/dL (3.5-5.0); Alkaline Phosphatase 95 U/L (38-126); Anion Gap 14 mmol/L; Blood Urea Nitrogen 20 mg/dL (7-17); Calcium 9.3 mg/dL (8.4-10.2); Carbon Dioxide 20 mmol/L (22-30); Chloride 104 mmol/L (98-107); Glucose 288 mg/dL (74-99); Non-African American GFR(CKD) 75 (>60 ml/min/1.73 sqM); Potassium 4.5 mmol/L (3.5-5.1); Sodium 138 mmol/L (137-145); Total Bilirubin 0.7 mg/dL (0.2-1.3); Total Protein 7.7 g/dL (6.3-8.2)
--- NOTE | 2024-01-29 18:34 | US ---
EXAMINATION TYPE: US venous doppler duplex UE LT DATE OF EXAM: 01/29/2024 COMPARISON: US 01/17/2024 CLINICAL INDICATION: Female, 53 years old with history of pain; Patient had IV placed on 01/14/24 and r emoved 01/15/24. Pain and swelling ever since. Patient states she takes a blood thinner. SIDE PERFORMED: Left arm Left Arm: No evidence of DVT. *There appear to be internal echoes within cephalic superficial vein at the antecubital area. The vein does not compress at this segment. Color defect/lack of color flow se en within. *Superficial thrombus. IMPRESSION: 1. Left upper extremity deep venous ultrasound negative for deep venous thrombosis. 2. Superficial left upper extremity venous thrombus within the cephalic vein at the antecubital fossa .
[2024-01-29] MEDS: SODIUM CHLORIDE 0.9% 1,000 ML IV STA ×2 (19:13→21:47)
[2024-01-29] MEDS: MORPHINE SULFATE 2 MG/ML SYRINGE IVP STA (19:27)
[2024-01-29] MEDS: ONDANSETRON 4 MG/2 ML VIAL IVP STA (19:27)
[2024-01-29] MEDS: CEFEPIME 2 GM in SODIUM CHLORIDE 0.9% 100 ML IVPB SCH (20:55)
[2024-01-29 21:35] LABS: Glucose,Whole Blood 176 mg/dL (70-110)
[2024-01-29] MEDS: INSULIN REGULAR 100 UNIT/ML VIAL (IV) IV ONE (21:43)
[2024-01-29] MEDS ORDERED: HYDROcodone/APAP 5-325MG 1 EACH TAB PO PRN (22:11)
[2024-01-29] MEDS ORDERED: ACETAMINOPHEN TAB 325 MG TAB PO PRN (22:11)
[2024-01-29] MEDS ORDERED: MORPHINE SULFATE 4 MG/ML SYRINGE IV PRN (22:11)
[2024-01-29] MEDS ORDERED: NALOXONE 0.4 MG/ML 1 ML VIAL IV PRN (22:11)
[2024-01-29] MEDS ORDERED: ONDANSETRON 4 MG TAB PO PRN (22:13)
[2024-01-29] MEDS ORDERED: BUTALB/APAP/CAFF 50-325-40MG TAB PO PRN (22:13)
[2024-01-29] MEDS ORDERED: DICLOFENAC SODIUM GEL 50 GM TUBE TOPICAL PRN (22:30)
[2024-01-29] MEDS: EZETIMIBE 10 MG TAB PO SCH (22:53)
[2024-01-29] MEDS: ATORVASTATIN 40 MG TAB PO SCH (22:53)
[2024-01-29] MEDS: SODIUM CHLORIDE 0.9% 1,000 ML IV SCH (22:55)
[2024-01-29] MEDS: tiZANidine 4 MG TAB PO SCH (23:07)
--- NOTE | 2024-01-29 23:18 | CT ---
EXAMINATION TYPE: CT upper extremity LT wo con DATE OF EXAM: 01/29/2024 7:22 PM COMPARISON: None. CLINICAL INDICATION:Female, 53 years old with history of Pain and swelling, recent cellulitis diagnos is; PHH, cellulitis TECHNIQUE: Noncontrast CT was performed of the left upper extremity from the shoulder to the mid fore arm. CT DLP: 401.2 mGycm, Automated exposure control for dose reduction was used. FINDINGS: Examination of the soft tissues is limited without IV contrast. No focal fluid collection seen to sug gest abscess. There is skin thickening and fat stranding along the posterior aspect of the arm greate st at the level of the elbow, suggestive of edema and cellulitis. There is no radiopaque foreign body seen. Osseous structures show no destructive changes or aggressive periostitis. No acute fracture lucency o r dislocation. No significant degenerative changes are seen. IMPRESSION: 1. Findings in the region of the left elbow suggestive of edema and cellulitis. 2. No focal fluid collection seen to suggest abscess. 3. No acute bony abnormality.
[2024-01-29] MEDS: SODIUM CHLORIDE 0.9% 1,000 ML IV ONE (23:23)
[2024-01-30] MEDS ORDERED: VANCOMYCIN IV PER PHARMACY 1 EACH MISC MISCELLANE PRN (00:03)
[2024-01-30 00:09] LABS: Appearance,Urine Clear (Clear); Bilirubin,Urine Negative (Negative); Blood,Urine Negative (Negative); Color,Urine Colorless; Glucose,Urine (UA) 4+ (Negative); Ketones,Urine Negative (Negative); Leukocyte Esterase,Urine Trace (Negative); Mucus,Urine Rare /hpf; Nitrite,Urine Negative (Negative); Protein,Urine Negative (Negative); RBC,Urine 1 /hpf (0-5); Specific Gravity,Urine 1.017 (1.001-1.035); Squamous Epithelial Cell,Urine 1 /hpf (0-4); Urobilinogen,Urine <2.0 mg/dL (<2.0); WBC,Urine 2 /hpf (0-5)
[2024-01-30] MEDS: SODIUM CHLORIDE 0.9% 1,000 ML IV ONE (00:55)
[2024-01-30 02:18] LABS: Erythrocyte Sedimentation Rate 58 mm/Hr (0-30)
[2024-01-30] MEDS: VANCOMYCIN 1,500 MG in SODIUM CHLORIDE 0.9% 500 ML 500 ML IVPB ONE (04:39)
[2024-01-30] MEDS: LEVOTHYROXINE 75 MCG TAB PO SCH (05:54)
[2024-01-30 06:09] LABS: Glucose,Whole Blood 158 mg/dL (70-110)
[2024-01-30] MEDS: ISOSORBIDE MONONITRATE ER 30 MG TAB.ER.24H PO SCH (07:50)
[2024-01-30] MEDS: FUROSEMIDE 20 MG TAB PO SCH (07:50)
[2024-01-30] MEDS: PANTOPRAZOLE 40 MG TABLET PO SCH (07:50)
[2024-01-30] MEDS: metFORMIN 500 MG TAB PO SCH (07:50)
[2024-01-30] MEDS: oxyCODONE-APAP 5-325MG 1 EACH TAB PO SCH (07:51)
[2024-01-30] MEDS: PARoxetine 20 MG TAB PO SCH (07:51)
[2024-01-30] MEDS: LOSARTAN 25 MG TAB PO SCH (07:51)
[2024-01-30] MEDS: DAPAGLIFLOZIN PROPANEDIOL 5 MG TABLET PO SCH (07:51)
[2024-01-30] MEDS: INSULIN ASPART (NovoLOG) 100 UNIT/ML VIAL SQ SCH (07:52)
[2024-01-30] MEDS ORDERED: PANTOPRAZOLE 40 MG/10 ML VIAL IV SCH (09:00)
[2024-01-30] MEDS: METOPROLOL SUCCINATE (ER) 50 MG TAB.ER.24H PO SCH (10:40)
[2024-01-30] MEDS: NYSTATIN 100,000 UNIT/GM POWD 15 GM TOPICAL SCH (10:42)
[2024-01-30] MEDS: SPIRONOLACTONE 25 MG TAB PO SCH (10:43)
[2024-01-30] MEDS: PRASUGREL 10 MG TAB PO SCH (10:43)
[2024-01-30 12:50] LABS: Glucose,Whole Blood 193 mg/dL (70-110)
--- NOTE | 2024-01-30 13:13 | P.HPIM ---
History of Present Illness H&P Date: 01/30/24 History of present illness; patient is a 53-year-old lady with past medical history significant for CVA TIA diabetes mellitus hypertension hyperlipidemia COPD and asthma who presents to the ER for complaint of left elbow pain. Patient was recently discharged from the hospital after being treated for left antecubital fossa IV site cellulitis. Patient was discharged on Keflex and was compliant with his medications, supposed to complete course of antibiotics today. Patient stated he woke up with severe pain in his left arm. Patient was having difficulty in holding things in his hand. Denies any fever or chills. There is no complaint of nausea, vomiting abdominal pain. Patient does notice swelling in the left antecubital area. Because of the symptoms, patient came to the ER Initial lab work done in the ER showed WBC 9.5, hemoglobin 13, platelet count 270, sodium 138, potassium 4.5, BUN 20, creatinine 0.87, lactate 3.5 CRP 1 UA negative for infection EKG done in the ER showed heart rate of 87 , no ST segment elevation or depression seen, no T-wave inversions seen. Ultrasound left upper extremity negative for DVT, superficial left upper extremity venous thrombosis within the cephalic vein CT left upper extremity done showed edema and cellulitis of left elbow, no fluid collection seen to suggest abscess Patient admitted to internal medicine service REVIEW OF SYSTEMS: CONSTITUTIONAL: As mentioned above HEENT: No recent visual problems or hearing problems. Denied any sore throat. CARDIOVASCULAR: No chest pain, orthopnea, PND, no palpitations, no syncope. PULMONARY: No shortness of breath, no cough, no hemoptysis. GASTROINTESTINAL: No diarrhea, no nausea, no vomiting, no abdominal pain. NEUROLOGICAL: No headaches, no weakness, no numbness. HEMATOLOGICAL: Denies any bleeding or petechiae. GENITOURINARY: Denies any burning micturition, frequency, or urgency. MUSCULOSKELETAL/RHEUMATOLOGICAL: As mentioned above ENDOCRINE: Denies any polyuria or polydipsia. The rest of the 14-point review of systems is negative. PHYSICAL EXAMINATION: GENERAL: The patient is alert and oriented x3, not in any acute distress. Well developed, well nourished. HEENT: Pupils are round and equally reacting to light. EOMI. No scleral icterus. No conjunctival pallor. Normocephalic, atraumatic. No pharyngeal erythema. No thyromegaly. CARDIOVASCULAR: S1 and S2 present. No murmurs, rubs, or gallops. PULMONARY: Chest is clear to auscultation, no wheezing or crackles. ABDOMEN: Soft, nontender, nondistended, normoactive bowel sounds. No palpable organomegaly. MUSCULOSKELETAL: No joint swelling or deformity. EXTREMITIES: No cyanosis, clubbing, or pedal edema. NEUROLOGICAL: Gross neurological examination did not reveal any focal deficits. SKIN: Left antecubital area redness, small induration seen, no reduced range of motion in the elbow joint Assessment and plan Left upper extremity cellulitis Left upper extremity superficial vein thrombus of cephalic vein History of recent left antecubital fossa IV site cellulitis Hypertension Hyperlipidemia Diabetes mellitus hypothyroidism History of coronary artery disease Monitor vital signs Monitor CBC Monitor CMP Continue telemetry monitoring Follow-up on blood cultures Follow-up on wound cultures Continue IV cefepime, vancomycin Monitor blood sugar levels, continue sliding scale insulin Hold losartan and Lasix for now because of hypotension. Resume Lipitor Resume Synthroid Resume home meds consult ID Labs and medication were reviewed.. Continue same treatment. Continue with symptomatic treatment. Resume home medication. Monitor labs and vitals. DVT and GI prophylaxis. Further recommendations as per clinical course of the patient Dictation was produced using [employer] dictation software. please excuse any grammatical, word or spelling errors. Past Medical History Past Medical History: Asthma, Chest Pain / Angina, COPD, CVA/TIA, Diabetes Mellitus, Hyperlipidemia, Hypertension Additional Past Medical History / Comment(s): neuoropathy, RT CATARACT TIA History of Any Multi-Drug Resistant Organisms: None Reported Past Surgical History: Adenoidectomy, Cholecystectomy, Heart Catheterization With Stent, Tonsillectomy Additional Past Surgical History / Comment(s): D&C, carpal tunnel surgery left , LT ARM SX FOR "PINCHED NERVE", LT THUMB TRIGGER FINGER, rae neuroma removed left foot, heart cath 2015 , right ankle fx 01/2018 no surgery , LT CATARACT REMOVED WITH LENS IMPLANT thyroidectomy Past Anesthesia/Blood Transfusion Reactions: Previous Problems w/ Anesthesia, Motion Sickness Additional Past Anesthesia/Blood Transfusion Reaction / Comment(s): difficulty waking from anesthesia Date of Last Stent Placement:: 2022 Past Psychological History: Anxiety, Depression, Panic Disorder Smoking Status: Former smoker Past Alcohol Use History: Occasional Past Drug Use History: None Reported - Past Family History Father Family Medical History: Cancer Additional Family Medical History / Comment(s): skin Mother Family Medical History: Diabetes Mellitus, Hypertension, Osteoarthritis (OA) Additional Family Medical History / Comment(s): MURMUR Sister(s) Family Medical History: Cancer Additional Family Medical History / Comment(s): ovarian Medications and Allergies Home Medications Medication Instructions Recorded Confirmed Type Montelukast [Singulair] 10 mg PO HS 04/16/17 01/29/24 History Losartan Potassium [Cozaar] 25 mg PO DAILY 06/24/17 01/29/24 History PARoxetine HCL [Paxil] 40 mg PO DAILY 12/27/18 01/29/24 History Insulin Aspart [NovoLOG Flexpen] 15 units SQ AC-TID 04/30/22 01/29/24 History Empagliflozin [Jardiance] 10 mg PO DAILY 01/13/23 01/29/24 History Insulin Aspart [NovoLOG Flexpen] See Protocol SQ AC-TID 01/13/23 01/29/24 History Insulin Glargine,Hum.rec.anlog 50 units SQ HS 01/13/23 01/29/24 History [Lantus Solostar Pen] Omeprazole [PriLOSEC] 20 mg PO DAILY 01/13/23 01/29/24 History oxyCODONE-APAP 5-325MG [Percocet 1 tab PO TID 01/13/23 01/29/24 History 5-325 mg] tiZANidine [Zanaflex] 4 mg PO HS 01/13/23 01/29/24 History Prasugrel [Effient] 10 mg PO DAILY #90 tablet 01/14/23 01/29/24 Rx Atorvastatin [Lipitor] 40 mg PO HS 01/14/24 01/29/24 History Butalb/APAP/Caff 50-325-40Mg 1 tab PO BID PRN 01/14/24 01/29/24 History [Fioricet 50-325-40] Diclofenac Sodium Gel [Voltaren 1% 1 applic TOPICAL BID PRN 01/14/24 01/29/24 History Gel] Ergocalciferol [Vitamin D2 (1250 1,250 mcg PO TU 01/14/24 01/29/24 History Mcg = 25344 Iu)] Ezetimibe [Zetia] 10 mg PO HS 01/14/24 01/29/24 History Fluticasone Nasal [place] [Flonase 2 spr EA NOSTRIL HS 01/14/24 01/29/24 History Nasal [place]] Furosemide [Lasix] 20 mg PO DAILY 01/14/24 01/29/24 History Isosorbide Mononitrate ER [Imdur] 30 mg PO DAILY 01/14/24 01/29/24 History Levothyroxine Sodium 150 mcg PO DAILY 01/14/24 01/29/24 History Metoprolol Succinate (ER) [Toprol 50 mg PO DAILY 01/14/24 01/29/24 History XL] Nystatin 100,000 Unit/gm Powd 1 applic TOPICAL BID 01/14/24 01/29/24 History [Mycostatin Powder] Spironolactone [Aldactone] 25 mg PO DAILY 01/14/24 01/29/24 History Tirzepatide [Mounjaro] 2.5 mg SQ TU 01/14/24 01/29/24 History metFORMIN HCL 1,000 mg PO BID 01/14/24 01/29/24 History Ondansetron [Zofran] 4 mg PO Q8HR PRN 4 Days #10 tab 01/17/24 01/29/24 Rx Cephalexin [Keflex] 500 mg PO Q8HR 7 Days #21 cap 01/22/24 01/29/24 Rx Allergies Allergy/AdvReac Type Severity Reaction Status Date / Time adhesive Allergy red skin Verified 01/29/24 20:52 Iodinated Contrast Media Allergy Itching Verified 01/29/24 20:52 [Iodinated Contrast Media - IV Dye] prednisone Allergy Rapid Verified 01/29/24 20:52 Heart Rate, Panic attack Sulfa (Sulfonamide Allergy Unknown Verified 01/29/24 20:52 Antibiotics) verapamil Allergy Anaphylaxis Verified 01/29/24 20:52 celecoxib [From Celebrex] AdvReac CAUSES GI Verified 01/29/24 20:52 BLEEDING cephalexin monohydrate AdvReac Vomiting Verified 01/29/24 20:52 [From Keflex] diphenhydramine AdvReac arm burned Verified 01/29/24 20:52 [From Benadryl] when given IV Penicillins AdvReac Nausea & Verified 01/29/24 20:52 Vomiting tramadol AdvReac Nausea & Verified 01/29/24 20:52 Vomiting Physical Exam Vitals: Vital Signs Temp Pulse Resp BP Pulse Ox 01/30/24 08:30 83 17 131/80 97 01/30/24 08:00 79 16 132/85 96 01/30/24 07:30 86 17 112/69 98 01/30/24 07:00 81 14 89/52 95 01/30/24 06:30 71 14 86/59 97 01/30/24 06:00 74 16 103/63 96 01/30/24 05:30 75 14 91/62 95 01/30/24 05:00 77 18 79/56 96 01/30/24 04:35 75 17 96/63 95 01/30/24 03:10 82 18 90/60 98 01/30/24 03:00 82 18 83/67 100 01/30/24 01:10 82 16 81/54 98 01/30/24 00:57 82 18 83/58 01/30/24 00:50 80 16 78/56 98 01/30/24 00:35 86 18 88/55 96 01/30/24 00:07 86 18 78/44 95 01/30/24 00:00 97.6 F 80 83/46 96 01/29/24 23:21 88 87/51 01/29/24 21:40 83 98/61 01/29/24 16:14 98.2 F 91 18 106/75 99 Intake and Output 01/29/24 01/30/24 01/30/24 22:59 06:59 14:59 Other: Weight 98.43 kg Results CBC & Chem 7: 01/29/24 17:32 01/29/24 17:32 Labs: Abnormal Lab Results - Last 24 Hours (Table) 01/29/24 01/29/24 01/29/24 Range/Units 17:32 17:32 17:32 WBC 11.5 H (3.8-10.6) k/uL Neutrophils # 8.5 H (1.3-7.7) k/uL ESR 58 H (0-30) mm/Hr Carbon Dioxide 20 L (22-30) mmol/L BUN 20 H (7-17) mg/dL Glucose 288 H (74-99) mg/dL POC Glucose (mg/dL) (70-110) mg/dL Plasma Lactic Acid Wil 3.5 H* (0.7-2.0) mmol/L C-Reactive Protein 1.0 H (<1.0) mg/dL Urine Glucose (UA) (Negative) Ur Leukocyte Esterase (Negative) Urine Mucus (None) /hpf 01/29/24 01/29/24 01/30/24 Range/Units 21:34 23:55 06:08 WBC (3.8-10.6) k/uL Neutrophils # (1.3-7.7) k/uL ESR (0-30) mm/Hr Carbon Dioxide (22-30) mmol/L BUN (7-17) mg/dL Glucose (74-99) mg/dL POC Glucose (mg/dL) 176 H 158 H (70-110) mg/dL Plasma Lactic Acid Wil (0.7-2.0) mmol/L C-Reactive Protein (<1.0) mg/dL Urine Glucose (UA) 4+ H (Negative) Ur Leukocyte Esterase Trace H (Negative) Urine Mucus Rare H (None) /hpf
[2024-01-30 17:51] LABS: Glucose,Whole Blood 100 mg/dL (70-110)
[2024-01-30] MEDS: VANCOMYCIN 1,500 MG in SODIUM CHLORIDE 0.9% 500 ML 500 ML IVPB SCH (18:43)
[2024-01-30 21:19] LABS: Glucose,Whole Blood 161 mg/dL (70-110)
[2024-01-30] MEDS: INSULIN DETEMIR (LEVEMIR) 100 UNIT/ML SYR SQ SCH (21:53)
[2024-01-30] MEDS: MONTELUKAST 10 MG TAB PO SCH (21:53)
[2024-01-30] MEDS: FLUTICASONE 50MCG/SPRAY NASAL 16GM EA NOSTRIL SCH (21:55)
--- NOTE | 2024-01-30 22:01 | P.CONS ---
History of Present Illness - Reason for Consult Consult date: 01/30/24 Left arm cellulitis Requesting physician: Shirley Irvin - Chief Complaint Left antecubital fossa pain and swelling x few days - History of Present Illness Patient is a 53-year-old female with a past medical history significant for diabetes mellitus hypertension hyperlipidemia COPD CVA TIA in this patient who was recently admitted to this facility for chest pain patient also developed left antecubital fossa IV site phlebitis local culture positive for MSSA blood culture negative patient was treated with the cefazolin and subsequent discharge home on oral Keflex with the patient mention she was taking however now presenting back to the hospital concerning for increasing pain to the left forearm area patient noticed to have a worsening over the last day or 2 denies any history of any trauma has been complaining of diffuse dull aching pain to the left arm intensity is moderate without any radiation with associated swelling but no redness, patient mention noticed to have another bump to the left antecubital fossa and started to drain some pus with the patient was brought into the hospital on arrival to the ER the patient was afebrile and no fever have been recorded subsequently patient was not tachycardic or hypoxic and no need for supplemental oxygen patient did have a white count of 11.5 with a left shift creatinine was 0.87 lactic acid was 3.5 liver enzymes are normal urine has been negative patient did have a left upper extremity CT suggestive of left elbow area edema and cellulitis no focal fluid collection patient was started on cefepime and vancomycin infectious disease was consulted for further management of antibiotic therapy Review of Systems Positive point and negatives has been mentioned in the HPI, complete review of systems was performed and all other systems are negative Past Medical History Past Medical History: Asthma, Chest Pain / Angina, COPD, CVA/TIA, Diabetes Mellitus, Hyperlipidemia, Hypertension Additional Past Medical History / Comment(s): neuoropathy, RT CATARACT TIA History of Any Multi-Drug Resistant Organisms: None Reported Past Surgical History: Adenoidectomy, Cholecystectomy, Heart Catheterization With Stent, Tonsillectomy Additional Past Surgical History / Comment(s): D&C, carpal tunnel surgery left , LT ARM SX FOR "PINCHED NERVE", LT THUMB TRIGGER FINGER, rae neuroma removed left foot, heart cath 2015 , right ankle fx 01/2018 no surgery , LT CATARACT REMOVED WITH LENS IMPLANT thyroidectomy Past Anesthesia/Blood Transfusion Reactions: Previous Problems w/ Anesthesia, Motion Sickness Additional Past Anesthesia/Blood Transfusion Reaction / Comm: difficulty waking from anesthesia Date of Last Stent Placement:: 2022 Past Psychological History: Anxiety, Depression, Panic Disorder Smoking Status: Former smoker Past Alcohol Use History: Occasional Past Drug Use History: None Reported - Past Family History Father Family Medical History: Cancer Additional Family Medical History / Comment(s): skin Mother Family Medical History: Diabetes Mellitus, Hypertension, Osteoarthritis (OA) Additional Family Medical History / Comment(s): MURMUR Sister(s) Family Medical History: Cancer Additional Family Medical History / Comment(s): ovarian Medications and Allergies Home Medications Medication Instructions Recorded Confirmed Type Montelukast [Singulair] 10 mg PO HS 04/16/17 01/29/24 History Losartan Potassium [Cozaar] 25 mg PO DAILY 06/24/17 01/29/24 History PARoxetine HCL [Paxil] 40 mg PO DAILY 12/27/18 01/29/24 History Insulin Aspart [NovoLOG Flexpen] 15 units SQ AC-TID 04/30/22 01/29/24 History Empagliflozin [Jardiance] 10 mg PO DAILY 01/13/23 01/29/24 History Insulin Aspart [NovoLOG Flexpen] See Protocol SQ AC-TID 01/13/23 01/29/24 History Insulin Glargine,Hum.rec.anlog 50 units SQ HS 01/13/23 01/29/24 History [Lantus Solostar Pen] Omeprazole [PriLOSEC] 20 mg PO DAILY 01/13/23 01/29/24 History oxyCODONE-APAP 5-325MG [Percocet 1 tab PO TID 01/13/23 01/29/24 History 5-325 mg] tiZANidine [Zanaflex] 4 mg PO HS 01/13/23 01/29/24 History Prasugrel [Effient] 10 mg PO DAILY #90 tablet 01/14/23 01/29/24 Rx Atorvastatin [Lipitor] 40 mg PO HS 01/14/24 01/29/24 History Butalb/APAP/Caff 50-325-40Mg 1 tab PO BID PRN 01/14/24 01/29/24 History [Fioricet 50-325-40] Diclofenac Sodium Gel [Voltaren 1% 1 applic TOPICAL BID PRN 01/14/24 01/29/24 History Gel] Ergocalciferol [Vitamin D2 (1250 1,250 mcg PO TU 01/14/24 01/29/24 History Mcg = 12163 Iu)] Ezetimibe [Zetia] 10 mg PO HS 01/14/24 01/29/24 History Fluticasone Nasal [place] [Flonase 2 spr EA NOSTRIL HS 01/14/24 01/29/24 History Nasal [place]] Furosemide [Lasix] 20 mg PO DAILY 01/14/24 01/29/24 History Isosorbide Mononitrate ER [Imdur] 30 mg PO DAILY 01/14/24 01/29/24 History Levothyroxine Sodium 150 mcg PO DAILY 01/14/24 01/29/24 History Metoprolol Succinate (ER) [Toprol 50 mg PO DAILY 01/14/24 01/29/24 History XL] Nystatin 100,000 Unit/gm Powd 1 applic TOPICAL BID 01/14/24 01/29/24 History [Mycostatin Powder] Spironolactone [Aldactone] 25 mg PO DAILY 01/14/24 01/29/24 History Tirzepatide [Mounjaro] 2.5 mg SQ TU 01/14/24 01/29/24 History metFORMIN HCL 1,000 mg PO BID 01/14/24 01/29/24 History Ondansetron [Zofran] 4 mg PO Q8HR PRN 4 Days #10 tab 01/17/24 01/29/24 Rx Doxycycline [Vibramycin] 100 mg PO BID 7 Days #14 capsule 02/02/24 Rx Allergies Allergy/AdvReac Type Severity Reaction Status Date / Time adhesive Allergy red skin Verified 01/29/24 20:52 Iodinated Contrast Media Allergy Itching Verified 01/29/24 20:52 [Iodinated Contrast Media - IV Dye] prednisone Allergy Rapid Verified 01/29/24 20:52 Heart Rate, Panic attack Sulfa (Sulfonamide Allergy Unknown Verified 01/29/24 20:52 Antibiotics) verapamil Allergy Anaphylaxis Verified 01/29/24 20:52 celecoxib [From Celebrex] AdvReac CAUSES GI Verified 01/29/24 20:52 BLEEDING cephalexin monohydrate AdvReac Vomiting Verified 01/29/24 20:52 [From Keflex] diphenhydramine AdvReac arm burned Verified 01/29/24 20:52 [From Benadryl] when given IV Penicillins AdvReac Nausea & Verified 01/29/24 20:52 Vomiting tramadol AdvReac Nausea & Verified 01/29/24 20:52 Vomiting Physical Exam Vitals: Vital Signs Temp Pulse Resp BP Pulse Ox 01/30/24 07:00 81 14 89/52 95 01/30/24 06:30 71 14 86/59 97 01/30/24 06:00 74 16 103/63 96 01/30/24 05:30 75 14 91/62 95 01/30/24 05:00 77 18 79/56 96 01/30/24 04:35 75 17 96/63 95 01/30/24 03:10 82 18 90/60 98 01/30/24 03:00 82 18 83/67 100 01/30/24 01:10 82 16 81/54 98 01/30/24 00:57 82 18 83/58 01/30/24 00:50 80 16 78/56 98 01/30/24 00:35 86 18 88/55 96 01/30/24 00:07 86 18 78/44 95 01/30/24 00:00 97.6 F 80 83/46 96 01/29/24 23:21 88 87/51 01/29/24 21:40 83 98/61 01/29/24 16:14 98.2 F 91 18 106/75 99 Intake and Output 01/29/24 01/30/24 01/30/24 22:59 06:59 14:59 Other: Weight 98.43 kg Middle-age female lying in bed in no distress Respiratory system unlabored breathing decreased breath sound the base Heart S1-S2 regular Abdominal soft mild left-sided tenderness Extremities left antecubital fossa did have some swelling minimal redness no drainage Skin no rashes, no masses palpable Patient is awake alert oriented x 3 mood and affect is normal Exam compleetd with help of [employer] Results CBC & Chem 7: 02/02/24 05:51 02/02/24 05:51 Labs: Abnormal Lab Results - Last 24 Hours (Table) 01/29/24 01/29/24 01/29/24 Range/Units 17:32 17:32 17:32 WBC 11.5 H (3.8-10.6) k/uL Neutrophils # 8.5 H (1.3-7.7) k/uL ESR 58 H (0-30) mm/Hr Carbon Dioxide 20 L (22-30) mmol/L BUN 20 H (7-17) mg/dL Glucose 288 H (74-99) mg/dL POC Glucose (mg/dL) (70-110) mg/dL Plasma Lactic Acid Wil 3.5 H* (0.7-2.0) mmol/L C-Reactive Protein 1.0 H (<1.0) mg/dL Urine Glucose (UA) (Negative) Ur Leukocyte Esterase (Negative) Urine Mucus (None) /hpf 01/29/24 01/29/24 01/30/24 Range/Units 21:34 23:55 06:08 WBC (3.8-10.6) k/uL Neutrophils # (1.3-7.7) k/uL ESR (0-30) mm/Hr Carbon Dioxide (22-30) mmol/L BUN (7-17) mg/dL Glucose (74-99) mg/dL POC Glucose (mg/dL) 176 H 158 H (70-110) mg/dL Plasma Lactic Acid Wil (0.7-2.0) mmol/L C-Reactive Protein (<1.0) mg/dL Urine Glucose (UA) 4+ H (Negative) Ur Leukocyte Esterase Trace H (Negative) Urine Mucus Rare H (None) /hpf Assessment and Plan (1) Allergy to multiple antibiotics Status: Acute Code(s): Z88.1 - ALLERGY STATUS TO OTHER ANTIBIOTIC AGENTS SNOMED Code(s): 954510757 (2) Left arm cellulitis Status: Acute Code(s): L03.114 - CELLULITIS OF LEFT UPPER LIMB SNOMED Code(s): 42001118179456617 Plan: 1patient presented to hospital with increasing pain swelling to the left antecubital. In this patient who was recently admitted to this facility and did have a left antecubital fossa IV site phlebitis did have some purulent drainage and culture positive for MSSA blood culture negative now presenting to the hospital with worsening pain and swelling and some purulent drainage failing outpatient oral Keflex therapy, patient did have a CT that was negative for any abscess and no drainage was noticed on examination today 2-nursing staff has been advised to obtain culture if the area started to drain blood culture has been obtained 3-continue with the cefepime and vancomycin while waiting for the workup to be completed We will follow on clinical condition and cultures to further adjust medication if needed Thank you for this consultation we will follow the patient along with you Dictation was produced using [employer] dictation software. please excuse any grammatical, word or spelling errors. Time with Patient: Greater than 30
[2024-01-30] MEDS: ONDANSETRON 4 MG/2 ML VIAL IVP PRN (23:50)
[2024-01-31 05:52] LABS: Glucose,Whole Blood 133 mg/dL (70-110)
[2024-01-31 07:50] LABS: Basophils % (A) 1 %; Eosinophils # (A) 0.3 k/uL (0-0.7); Eosinophils % (A) 4 %; HCT 32.9 % (34.0-46.0); HGB 10.3 gm/dL (11.4-16.0); Hypochromasia Slight; Lymphocytes # (A) 1.5 k/uL (1.0-4.8); Lymphocytes % (A) 26 %; MCH 26.2 pg (25.0-35.0); MCHC 31.3 g/dL (31.0-37.0); MCV 83.8 fL (80.0-100.0); Mean Platelet Volume 7.8; Monocytes # (A) 0.3 k/uL (0-1.0); Monocytes % (A) 5 %; Neutrophils # (A) 3.7 k/uL (1.3-7.7); Neutrophils % (A) 63 %; Platelet Count 148 k/uL (150-450); RBC 3.93 m/uL (3.80-5.40); RDW 15.5 % (11.5-15.5); WBC 5.9 k/uL (3.8-10.6)
[2024-01-31 08:20] LABS: ALT 15 U/L (4-34); AST 20 U/L (14-36); African American GFR (CKD) >90 (>60 ml/min/1.73 sqM); Albumin 2.8 g/dL (3.5-5.0); Albumin/Globulin Ratio 1.1; Alkaline Phosphatase 61 U/L (38-126); Anion Gap 6 mmol/L; Blood Urea Nitrogen 12 mg/dL (7-17); Calcium 7.4 mg/dL (8.4-10.2); Carbon Dioxide 20 mmol/L (22-30); Chloride 114 mmol/L (98-107); Globulin 2.5 g/dL; Glucose 142 mg/dL (74-99); Non-African American GFR(CKD) >90 (>60 ml/min/1.73 sqM); Potassium 3.9 mmol/L (3.5-5.1); Sodium 140 mmol/L (137-145); Total Bilirubin 0.3 mg/dL (0.2-1.3); Total Protein 5.3 g/dL (6.3-8.2)
[2024-01-31 11:26] LABS: Glucose,Whole Blood 156 mg/dL (70-110)
--- NOTE | 2024-01-31 13:07 | P.PN ---
Subjective Progress Note Date: 01/31/24 patient is a 53-year-old lady with past medical history significant for CVA TIA diabetes mellitus hypertension hyperlipidemia COPD and asthma who presents to the ER for complaint of left elbow pain. Patient was recently discharged from the hospital after being treated for left antecubital fossa IV site cellulitis. Patient was discharged on Keflex and was compliant with his medications, supposed to complete course of antibiotics today. Patient stated he woke up with severe pain in his left arm. Patient was having difficulty in holding things in his hand. Denies any fever or chills. There is no complaint of nausea, vomiting abdominal pain. Patient does notice swelling in the left antecubital area. Because of the symptoms, patient came to the ER Initial lab work done in the ER showed WBC 9.5, hemoglobin 13, platelet count 270, sodium 138, potassium 4.5, BUN 20, creatinine 0.87, lactate 3.5 CRP 1 UA negative for infection EKG done in the ER showed heart rate of 87 , no ST segment elevation or depression seen, no T-wave inversions seen. Ultrasound left upper extremity negative for DVT, superficial left upper extremity venous thrombosis within the cephalic vein CT left upper extremity done showed edema and cellulitis of left elbow, no fluid collection seen to suggest abscess Patient admitted to internal medicine service 01/30. Patient seen and examined. States redness in the left antecubital area has improved. Denies any pain in the elbow or left wrist joint. Initial blood work done showed this morning WBC 5.9, hemoglobin 10.3, platelet count 148, sodium 140, potassium 3.9, BUN 12, creatinine 0.74, glucose 142 REVIEW OF SYSTEMS: CONSTITUTIONAL: No fever, no malaise,. CARDIOVASCULAR: No chest pain, no palpitations, no syncope. PULMONARY: No shortness of breath, no cough, GASTROINTESTINAL: No diarrhea, no nausea, no vomiting, no abdominal pain. NEUROLOGICAL: No headaches, no weakness, PHYSICAL EXAMINATION: GENERAL: The patient is alert and oriented x3, not in any acute distress. Well developed, well nourished. HEENT: Pupils are round and equally reacting to light. EOMI. No scleral icterus. No conjunctival pallor. Normocephalic, atraumatic. No pharyngeal erythema. No thyromegaly. CARDIOVASCULAR: S1 and S2 present. No murmurs, rubs, or gallops. PULMONARY: Chest is clear to auscultation, no wheezing or crackles. ABDOMEN: Soft, nontender, nondistended, normoactive bowel sounds. No palpable organomegaly. MUSCULOSKELETAL: No joint swelling or deformity. EXTREMITIES: No cyanosis, clubbing, or pedal edema. NEUROLOGICAL: Gross neurological examination did not reveal any focal deficits. SKIN:Left antecubital area redness, small induration seen Assessment and plan Left upper extremity cellulitis Left upper extremity superficial vein thrombus of cephalic vein History of recent left antecubital fossa IV site cellulitis Hypertension Hyperlipidemia Diabetes mellitus hypothyroidism History of coronary artery disease Monitor vital signs Monitor CBC Monitor CMP Continue telemetry monitoring Follow-up on blood cultures Follow-up on wound cultures Continue IV cefepime, vancomycin Monitor blood sugar levels, continue sliding scale insulin Hold losartan and Lasix for now because of hypotension. Continue Lipitor Continue Synthroid ID following Labs and medication were reviewed.. Continue same treatment. Continue with symptomatic treatment. Resume home medication. Monitor labs and vitals. DVT and GI prophylaxis. Further recommendations as per clinical course of the patient Dictation was produced using [employer] dictation software. please excuse any grammatical, word or spelling errors. Objective - Vital Signs Vital signs: Vital Signs Temp 97.3 F L 01/31/24 07:37 Pulse 75 01/31/24 07:37 Resp 16 01/31/24 07:37 BP 94/61 01/31/24 07:37 Pulse Ox 93 L 01/31/24 07:37 FiO2 Intake & Output 01/30/24 01/31/24 01/31/24 18:59 06:59 18:59 Intake Total 1610 Balance 1610 Weight 98.43 kg Intake: Intake, IV Titration 1610 Amount Cefepime 2 gm In Sodium 200 Chloride 0.9% 100 ml @ 200 mls/hr IVPB Q8H MICAHEL Rx#:[id number] Sodium Chloride 0.9% 1, 910 000 ml @ 130 mls/hr IV . Q7H42M MICHAEL Rx#:[id number] Vancomycin 1,500 mg In 500 Sodium Chloride 0.9% 500 ml 500 ml @ 167 mls/hr IVPB Q12H MICHAEL Rx#: [id number] Other: # Voids 1 - Labs CBC & Chem 7: 01/31/24 07:25 01/31/24 07:25 Labs: Abnormal Lab Results - Last 24 Hours (Table) 01/30/24 01/30/24 01/31/24 Range/Units 12:41 21:18 05:50 Hgb (11.4-16.0) gm/dL Hct (34.0-46.0) % Plt Count (150-450) k/uL Chloride (98-107) mmol/L Carbon Dioxide (22-30) mmol/L Glucose (74-99) mg/dL POC Glucose (mg/dL) 193 H 161 H 133 H (70-110) mg/dL Calcium (8.4-10.2) mg/dL Total Protein (6.3-8.2) g/dL Albumin (3.5-5.0) g/dL 01/31/24 01/31/24 Range/Units 07:25 07:25 Hgb 10.3 L (11.4-16.0) gm/dL Hct 32.9 L (34.0-46.0) % Plt Count 148 L (150-450) k/uL Chloride 114 H (98-107) mmol/L Carbon Dioxide 20 L (22-30) mmol/L Glucose 142 H (74-99) mg/dL POC Glucose (mg/dL) (70-110) mg/dL Calcium 7.4 L (8.4-10.2) mg/dL Total Protein 5.3 L (6.3-8.2) g/dL Albumin 2.8 L (3.5-5.0) g/dL Microbiology - Last 24 Hours (Table) 01/29/24 20:59 Blood Culture - Preliminary Blood 01/29/24 20:54 Blood Culture - Preliminary Blood
[2024-01-31 17:07] LABS: Glucose,Whole Blood 111 mg/dL (70-110)
[2024-01-31 18:56] LABS: Glucose,Whole Blood 129 mg/dL (70-110)
[2024-01-31 20:29] LABS: Glucose,Whole Blood 165 mg/dL (70-110)
[2024-02-01 04:16] LABS: African American GFR (CKD) >90 (>60 ml/min/1.73 sqM); Non-African American GFR(CKD) >90 (>60 ml/min/1.73 sqM)
[2024-02-01] MEDS: VANCOMYCIN TROUGH DUE 1 EACH MISC MISCELLANE ONE (04:28)
[2024-02-01 06:59] LABS: Glucose,Whole Blood 136 mg/dL (70-110)
[2024-02-01 12:52] LABS: Glucose,Whole Blood 128 mg/dL (70-110)
--- NOTE | 2024-02-01 14:12 | P.PN ---
Subjective Progress Note Date: 02/01/24 patient is a 53-year-old lady with past medical history significant for CVA TIA diabetes mellitus hypertension hyperlipidemia COPD and asthma who presents to the ER for complaint of left elbow pain. Patient was recently discharged from the hospital after being treated for left antecubital fossa IV site cellulitis. Patient was discharged on Keflex and was compliant with his medications, supposed to complete course of antibiotics today. Patient stated he woke up with severe pain in his left arm. Patient was having difficulty in holding things in his hand. Denies any fever or chills. There is no complaint of nausea, vomiting abdominal pain. Patient does notice swelling in the left antecubital area. Because of the symptoms, patient came to the ER Initial lab work done in the ER showed WBC 9.5, hemoglobin 13, platelet count 270, sodium 138, potassium 4.5, BUN 20, creatinine 0.87, lactate 3.5 CRP 1 UA negative for infection EKG done in the ER showed heart rate of 87 , no ST segment elevation or depression seen, no T-wave inversions seen. Ultrasound left upper extremity negative for DVT, superficial left upper extremity venous thrombosis within the cephalic vein CT left upper extremity done showed edema and cellulitis of left elbow, no fluid collection seen to suggest abscess Patient admitted to internal medicine service 01/30. Patient seen and examined. States redness in the left antecubital area has improved. Denies any pain in the elbow or left wrist joint. Initial blood work done showed this morning WBC 5.9, hemoglobin 10.3, platelet count 148, sodium 140, potassium 3.9, BUN 12, creatinine 0.74, glucose 142 02/02. Patient seen and examined. States she feels much better. Blood pressure has improved. Denies any pain in the left arm or hand REVIEW OF SYSTEMS: CONSTITUTIONAL: No fever, no malaise,. CARDIOVASCULAR: No chest pain, no palpitations, no syncope. PULMONARY: No shortness of breath, no cough, GASTROINTESTINAL: No diarrhea, no nausea, no vomiting, no abdominal pain. NEUROLOGICAL: No headaches, no weakness, PHYSICAL EXAMINATION: GENERAL: The patient is alert and oriented x3, not in any acute distress. Well developed, well nourished. HEENT: Pupils are round and equally reacting to light. EOMI. No scleral icterus. No conjunctival pallor. Normocephalic, atraumatic. No pharyngeal erythema. No thyromegaly. CARDIOVASCULAR: S1 and S2 present. No murmurs, rubs, or gallops. PULMONARY: Chest is clear to auscultation, no wheezing or crackles. ABDOMEN: Soft, nontender, nondistended, normoactive bowel sounds. No palpable organomegaly. MUSCULOSKELETAL: No joint swelling or deformity. EXTREMITIES: No cyanosis, clubbing, or pedal edema. NEUROLOGICAL: Gross neurological examination did not reveal any focal deficits. SKIN:Left antecubital area redness improved, small induration seen Assessment and plan Left upper extremity cellulitis Left upper extremity superficial vein thrombus of cephalic vein History of recent left antecubital fossa IV site cellulitis Hypertension Hyperlipidemia Diabetes mellitus hypothyroidism History of coronary artery disease Monitor vital signs Monitor CBC Monitor CMP Continue telemetry monitoring Follow-up on blood cultures Follow-up on wound cultures Continue IV cefepime, vancomycin Monitor blood sugar levels, continue sliding scale insulin Continue Lipitor Continue Synthroid ID following Labs and medication were reviewed.. Continue same treatment. Continue with symptomatic treatment. Resume home medication. Monitor labs and vitals. DVT and GI prophylaxis. Further recommendations as per clinical course of the patient Dictation was produced using [employer] dictation software. please excuse any grammatical, word or spelling errors. Objective - Vital Signs Vital signs: Vital Signs Temp 98.1 F 02/01/24 12:45 Pulse 76 02/01/24 12:45 Resp 17 02/01/24 12:45 BP 146/91 02/01/24 12:45 Pulse Ox 99 02/01/24 12:45 FiO2 Intake & Output 01/31/24 02/01/24 02/01/24 18:59 06:59 18:59 Other: Voiding Method Toilet Toilet # Voids 2 # Bowel Movements 2 - Labs CBC & Chem 7: 01/31/24 07:25 02/01/24 03:51 Labs: Abnormal Lab Results - Last 24 Hours (Table) 01/31/24 01/31/24 01/31/24 Range/Units 17:04 18:52 20:27 POC Glucose (mg/dL) 111 H 129 H 165 H (70-110) mg/dL 02/01/24 02/01/24 Range/Units 06:58 12:45 POC Glucose (mg/dL) 136 H 128 H (70-110) mg/dL Microbiology - Last 24 Hours (Table) 01/29/24 20:59 Blood Culture - Preliminary Blood 01/29/24 20:54 Blood Culture - Preliminary Blood
--- NOTE | 2024-02-01 16:34 | P.PN ---
Subjective Progress Note Date: 01/31/24 Principal diagnosis: Reason for follow-up is left upper extremity cellulitis Patient is a 53-year-old female with a past medical history significant for diabetes mellitus hypertension hyperlipidemia COPD CVA TIA in this patient who was recently admitted to this facility for chest pain patient also developed left antecubital fossa IV site phlebitis local culture positive for MSSA treated with cefazolin followed by oral Keflex now presenting back to the hospital with worsening swelling and redness CT did show some swelling but no drainable abscess. On today's evaluation that is 01/31/2024, the patient continues to be afebrile, the patient is on 2 L nasal current oxygen and breathing comfortably, the Pt denies having any chest pain or cough, the patient denies having any abdominal pain no vomiting or any diarrhea left arm pain and swelling has improved no angela cat Patient white count normalized to 5.9 creatinine 0.75 blood cultures are pending Objective - Vital Signs Vital signs: Vital Signs Temp 97.3 F L 01/31/24 07:37 Pulse 75 01/31/24 07:37 Resp 16 01/31/24 07:37 BP 94/61 01/31/24 07:37 Pulse Ox 93 L 01/31/24 07:37 FiO2 Intake & Output 01/30/24 01/31/24 01/31/24 18:59 06:59 18:59 Intake Total 1610 Balance 1610 Weight 98.43 kg Intake: Intake, IV Titration 1610 Amount Cefepime 2 gm In Sodium 200 Chloride 0.9% 100 ml @ 200 mls/hr IVPB Q8H MICHAEL Rx#:[id number] Sodium Chloride 0.9% 1, 910 000 ml @ 130 mls/hr IV . Q7H42M MICHAEL Rx#:[id number] Vancomycin 1,500 mg In 500 Sodium Chloride 0.9% 500 ml 500 ml @ 167 mls/hr IVPB Q12H MICHAEL Rx#: [id number] Other: # Voids 1 - Exam GENERAL DESCRIPTION: An elderly male lying in bed in no distress RESPIRATORY SYSTEM: Unlabored breathing , decreased breath sounds at bases HEART: S1 S2 regular rate and rhythm , ABDOMEN: Soft , no tenderness EXTREMITIES: Left antecubital fossa and arm swelling redness improved no drainage Exam completed with help of [employer] - Labs CBC & Chem 7: 01/31/24 07:25 02/01/24 03:51 Labs: Abnormal Lab Results - Last 24 Hours (Table) 01/30/24 01/30/24 01/31/24 Range/Units 12:41 21:18 05:50 Hgb (11.4-16.0) gm/dL Hct (34.0-46.0) % Plt Count (150-450) k/uL Chloride (98-107) mmol/L Carbon Dioxide (22-30) mmol/L Glucose (74-99) mg/dL POC Glucose (mg/dL) 193 H 161 H 133 H (70-110) mg/dL Calcium (8.4-10.2) mg/dL Total Protein (6.3-8.2) g/dL Albumin (3.5-5.0) g/dL 01/31/24 01/31/24 Range/Units 07:25 07:25 Hgb 10.3 L (11.4-16.0) gm/dL Hct 32.9 L (34.0-46.0) % Plt Count 148 L (150-450) k/uL Chloride 114 H (98-107) mmol/L Carbon Dioxide 20 L (22-30) mmol/L Glucose 142 H (74-99) mg/dL POC Glucose (mg/dL) (70-110) mg/dL Calcium 7.4 L (8.4-10.2) mg/dL Total Protein 5.3 L (6.3-8.2) g/dL Albumin 2.8 L (3.5-5.0) g/dL Microbiology - Last 24 Hours (Table) 01/29/24 20:59 Blood Culture - Preliminary Blood 01/29/24 20:54 Blood Culture - Preliminary Blood Assessment and Plan (1) Left arm cellulitis Current Visit: Yes Status: Acute Code(s): L03.114 - CELLULITIS OF LEFT UPPER LIMB SNOMED Code(s): 28227062042175229 (2) Allergy to multiple antibiotics Current Visit: No Status: Acute Code(s): Z88.1 - ALLERGY STATUS TO OTHER ANTIBIOTIC AGENTS SNOMED Code(s): 548270715 Plan: 1patient presented to hospital with increasing pain swelling to the left antecubital. In this patient who was recently admitted to this facility and did have a left antecubital fossa IV site phlebitis did have some purulent drainage and culture positive for MSSA blood culture negative now presenting to the hospital with worsening pain and swelling and some purulent drainage failing outpatient oral Keflex therapy, patient did have a CT that was negative for any abscess and no drainage was noticed on examination today 2-patient to continue with the cefepime and vancomycin while waiting for culture to finalize Dictation was produced using [employer] dictation software. please excuse any grammatical, word or spelling errors. Time with Patient: Less than 30
--- NOTE | 2024-02-01 16:35 | P.PN ---
Subjective Progress Note Date: 02/01/24 Principal diagnosis: Reason for follow-up is left upper extremity cellulitis Patient is a 53-year-old female with a past medical history significant for diabetes mellitus hypertension hyperlipidemia COPD CVA TIA in this patient who was recently admitted to this facility for chest pain patient also developed left antecubital fossa IV site phlebitis local culture positive for MSSA treated with cefazolin followed by oral Keflex now presenting back to the hospital with worsening swelling and redness CT did show some swelling but no drainable abscess. On today's evaluation that is 02/01/2024, Patient is afebrile patient is currently on room air and denies having any shortness of breath, the patient denies any chest pain or cough, the patient denies any nausea vomiting did not have any abdominal pain and no diarrhea, left antecubital fossa swelling redness improved no drainage. No CBC was done today creatinine is normal blood culture negative so far Objective - Vital Signs Vital signs: Vital Signs Temp 98.1 F 02/01/24 12:45 Pulse 76 02/01/24 12:45 Resp 17 02/01/24 12:45 BP 146/91 02/01/24 12:45 Pulse Ox 99 02/01/24 12:45 FiO2 Intake & Output 01/31/24 02/01/24 02/01/24 18:59 06:59 18:59 Other: Voiding Method Toilet Toilet # Voids 2 # Bowel Movements 2 - Exam GENERAL DESCRIPTION: An elderly male lying in bed in no distress RESPIRATORY SYSTEM: Unlabored breathing , decreased breath sounds at bases HEART: S1 S2 regular rate and rhythm , ABDOMEN: Soft , no tenderness EXTREMITIES: Left antecubital fossa and arm swelling redness has improved and there is no drainage - Labs CBC & Chem 7: 01/31/24 07:25 02/01/24 03:51 Labs: Abnormal Lab Results - Last 24 Hours (Table) 01/31/24 01/31/24 01/31/24 Range/Units 17:04 18:52 20:27 POC Glucose (mg/dL) 111 H 129 H 165 H (70-110) mg/dL 02/01/24 02/01/24 Range/Units 06:58 12:45 POC Glucose (mg/dL) 136 H 128 H (70-110) mg/dL Microbiology - Last 24 Hours (Table) 01/29/24 20:59 Blood Culture - Preliminary Blood 01/29/24 20:54 Blood Culture - Preliminary Blood Assessment and Plan (1) Left arm cellulitis Current Visit: Yes Status: Acute Code(s): L03.114 - CELLULITIS OF LEFT UPPER LIMB SNOMED Code(s): 28387811346321955 (2) Allergy to multiple antibiotics Current Visit: No Status: Acute Code(s): Z88.1 - ALLERGY STATUS TO OTHER ANTIBIOTIC AGENTS SNOMED Code(s): 264542620 Plan: 1patient presented to hospital with increasing pain swelling to the left antecubital. In this patient who was recently admitted to this facility and did have a left antecubital fossa IV site phlebitis did have some purulent drainage and culture positive for MSSA blood culture negative now presenting to the hospital with worsening pain and swelling and some purulent drainage failing outpatient oral Keflex therapy, patient did have a CT that was negative for any abscess and no drainage was noticed on examination today 2-patient seem to have shown improvement to the left upper extreme cellulitis to continue with the cefepime and vancomycin if cultures negative by tomorrow short course of oral doxycycline on discharge Dictation was produced using [employer] dictation software. please excuse any grammatical, word or spelling errors. Time with Patient: Less than 30
[2024-02-01 17:15] LABS: Glucose,Whole Blood 181 mg/dL (70-110)
[2024-02-01] MEDS: VANCOMYCIN 1,250 MG in SODIUM CHLORIDE 0.9% 250 ML IVPB SCH (17:49)
[2024-02-01 20:26] LABS: Glucose,Whole Blood 187 mg/dL (70-110)
[2024-02-02 06:39] LABS: ALT 13 U/L (4-34); AST 15 U/L (14-36); African American GFR (CKD) >90 (>60 ml/min/1.73 sqM); Albumin/Globulin Ratio 1.1; Alkaline Phosphatase 64 U/L (38-126); Anion Gap 6 mmol/L; Blood Urea Nitrogen 8 mg/dL (7-17); Calcium 8.1 mg/dL (8.4-10.2); Carbon Dioxide 21 mmol/L (22-30); Chloride 114 mmol/L (98-107); Globulin 2.7 g/dL; Glucose 119 mg/dL (74-99); Non-African American GFR(CKD) 85 (>60 ml/min/1.73 sqM); Sodium 141 mmol/L (137-145); Total Bilirubin 0.4 mg/dL (0.2-1.3); Total Protein 5.7 g/dL (6.3-8.2)
[2024-02-02 07:35] LABS: Glucose,Whole Blood 110 mg/dL (70-110)
[2024-02-02] MEDS: ERGOCALCIFEROL 1,250 MCG (50,000 IU) CAPSULE PO SCH (08:27)
[2024-02-02] MEDS: NON FORMULARY DRUG (Tirzepatide [Mounjaro] 2.5 MG/0.5 ML Pen.Injctr) SQ SCH (08:28)
[2024-02-02 08:43] LABS: Basophils # (A) 0.04 X 10*3/uL (0.00-0.10); Basophils % (A) 0.6 %; Eosinophils # (A) 0.31 X 10*3/uL (0.04-0.35); Eosinophils % (A) 4.8 %; HCT 32.6 % (37.2-46.3); Lymphocytes # (A) 1.36 X 10*3/uL (0.90-5.00); Lymphocytes % (A) 21.2 %; MCH 25.5 pg (27.0-32.0); MCHC 30.7 g/dL (32.0-37.0); MCV 83.2 FL (80.0-97.0); Mean Platelet Volume 9.6 FL (9.5-12.2); Monocytes # (A) 0.47 X 10*3/uL (0.20-1.00); Monocytes % (A) 7.3 %; NRBC Per 100 WBC 0 X 10*3/uL (0.00-0.01); Neutrophils # (A) 4.22 X 10*3/uL (1.80-7.70); Neutrophils % (A) 65.8 %; Platelet Count 140 X 10*3/uL (140-440); RBC 3.92 X 10*6/uL (4.10-5.20); RDW 15.6 % (11.5-14.5); WBC 6.42 X 10*3/uL (4.50-10.00)
[2024-02-02 11:57] LABS: Glucose,Whole Blood 103 mg/dL (70-110)
[2024-02-02 12:45] VITALS: BP 131/80; PULSE 72; RESP 16; TEMP 98.7
--- NOTE | 2024-02-02 13:10 | P.DS ---
Providers Date of admission: 01/29/24 20:45 Expected date of discharge: 02/02/24 Attending physician: Vasiliy Berumen MD Consults: 01/29/24 22:11 Consult Physician Urgent Consulting Provider: Tommy Andrews Consult Reason/Comments: Left arm cellulitis Do you want consulting provider notified?: Yes Primary care physician: Cuca [facility] Course: Discharge diagnoses; Left upper extremity cellulitis Left upper extremity superficial vein thrombus of cephalic vein History of recent left antecubital fossa IV site cellulitis Hypertension Hyperlipidemia Diabetes mellitus hypothyroidism History of coronary artery disease Hospital course; patient is a 53-year-old lady with past medical history significant for CVA TIA diabetes mellitus hypertension hyperlipidemia COPD and asthma who presents to the ER for complaint of left elbow pain. Patient was recently discharged from the hospital after being treated for left antecubital fossa IV site cellulitis. Patient was discharged on Keflex and was compliant with his medications, supposed to complete course of antibiotics today. Patient stated he woke up with severe pain in his left arm. Patient was having difficulty in holding things in his hand. Denies any fever or chills. There is no complaint of nausea, vomiting abdominal pain. Patient does notice swelling in the left antecubital area. Because of the symptoms, patient came to the ER Initial lab work done in the ER showed WBC 9.5, hemoglobin 13, platelet count 270, sodium 138, potassium 4.5, BUN 20, creatinine 0.87, lactate 3.5 CRP 1 UA negative for infection EKG done in the ER showed heart rate of 87 , no ST segment elevation or depression seen, no T-wave inversions seen. Ultrasound left upper extremity negative for DVT, superficial left upper ex tremity venous thrombosis within the cephalic vein CT left upper extremity done showed edema and cellulitis of left elbow, no fluid collection seen to suggest abscess Patient admitted to internal medicine service 01/30. Patient seen and examined. States redness in the left antecubital area has improved. Denies any pain in the elbow or left wrist joint. Initial blood work done showed this morning WBC 5.9, hemoglobin 10.3, platelet count 148, sodium 140, potassium 3.9, BUN 12, creatinine 0.74, glucose 142 01/31. Patient seen and examined. States she feels much better. Blood pressure has improved. Denies any pain in the left arm or hand 528. Patient seen and examined. Being discharged on doxycycline for 1 week. Outpatient follow-up with ID PHYSICAL EXAMINATION: GENERAL: The patient is alert and oriented x3, not in any acute distress. Well developed, well nourished. HEENT: Pupils are round and equally reacting to light. EOMI. No scleral icterus. No conjunctival pallor. Normocephalic, atraumatic. No pharyngeal erythema. No thyromegaly. CARDIOVASCULAR: S1 and S2 present. No murmurs, rubs, or gallops. PULMONARY: Chest is clear to auscultation, no wheezing or crackles. ABDOMEN: Soft, nontender, nondistended, normoactive bowel sounds. No palpable organomegaly. MUSCULOSKELETAL: No joint swelling or deformity. EXTREMITIES: No cyanosis, clubbing, or pedal edema. NEUROLOGICAL: Gross neurological examination did not reveal any focal deficits. SKIN: No rashes. Dictation was produced using [employer] dictation software. please excuse any grammatical, word or spelling errors. Patient Condition at Discharge: Fair Plan - Discharge Summary Discharge Rx Participant: No New Discharge Prescriptions: New Doxycycline [Vibramycin] 100 mg PO BID 7 Days #14 capsule Continue Montelukast [Singulair] 10 mg PO HS Losartan Potassium [Cozaar] 25 mg PO DAILY PARoxetine HCL [Paxil] 40 mg PO DAILY Insulin Glargine,Hum.rec.anlog [Lantus Solostar Pen] 50 units SQ HS oxyCODONE-APAP 5-325MG [Percocet 5-325 mg] 1 tab PO TID tiZANidine [Zanaflex] 4 mg PO HS Tirzepatide [Mounjaro] 2.5 mg SQ TU Nystatin 100,000 Unit/gm Powd [Mycostatin Powder] 1 applic TOPICAL BID Metoprolol Succinate (ER) [Toprol XL] 50 mg PO DAILY metFORMIN HCL 1,000 mg PO BID Furosemide [Lasix] 20 mg PO DAILY Ezetimibe [Zetia] 10 mg PO HS Atorvastatin [Lipitor] 40 mg PO HS Ondansetron [Zofran] 4 mg PO Q8HR PRN 4 Days #10 tab PRN Reason: Nausea And Vomiting Insulin Aspart [NovoLOG Flexpen] 15 units SQ AC-TID Empagliflozin [Jardiance] 10 mg PO DAILY Insulin Aspart [NovoLOG Flexpen] See Protocol SQ AC-TID Omeprazole [PriLOSEC] 20 mg PO DAILY Prasugrel [Effient] 10 mg PO DAILY #90 tablet Spironolactone [Aldactone] 25 mg PO DAILY Levothyroxine Sodium 150 mcg PO DAILY Isosorbide Mononitrate ER [Imdur] 30 mg PO DAILY Fluticasone Nasal [place] [Flonase Nasal [place]] 2 spr EA NOSTRIL HS Ergocalciferol [Vitamin D2 (1250 Mcg = 84176 Iu)] 1,250 mcg PO TU Diclofenac Sodium Gel [Voltaren 1% Gel] 1 applic TOPICAL BID PRN PRN Reason: Pain Butalb/APAP/Caff 50-325-40Mg [Fioricet 50-325-40] 1 tab PO BID PRN PRN Reason: Pain Discontinued Cephalexin [Keflex] 500 mg PO Q8HR 7 Days #21 cap Discharge Medication List Montelukast [Singulair] 10 mg PO HS 04/16/17 [History] Losartan Potassium [Cozaar] 25 mg PO DAILY 06/24/17 [History] PARoxetine HCL [Paxil] 40 mg PO DAILY 12/27/18 [History] Insulin Aspart [NovoLOG Flexpen] 15 units SQ AC-TID 04/30/22 [History] Empagliflozin [Jardiance] 10 mg PO DAILY 01/13/23 [History] Insulin Aspart [NovoLOG Flexpen] See Protocol SQ AC-TID 01/13/23 [History] Insulin Glargine,Hum.rec.anlog [Lantus Solostar Pen] 50 units SQ HS 01/13/23 [History] Omeprazole [PriLOSEC] 20 mg PO DAILY 01/13/23 [History] oxyCODONE-APAP 5-325MG [Percocet 5-325 mg] 1 tab PO TID 01/13/23 [History] tiZANidine [Zanaflex] 4 mg PO HS 01/13/23 [History] Prasugrel [Effient] 10 mg PO DAILY #90 tablet 01/14/23 [Rx] Atorvastatin [Lipitor] 40 mg PO HS 01/14/24 [History] Butalb/APAP/Caff 50-325-40Mg [Fioricet 50-325-40] 1 tab PO BID PRN 01/14/24 [History] Diclofenac Sodium Gel [Voltaren 1% Gel] 1 applic TOPICAL BID PRN 01/14/24 [History] Ergocalciferol [Vitamin D2 (1250 Mcg = 34409 Iu)] 1,250 mcg PO TU 01/14/24 [History] Ezetimibe [Zetia] 10 mg PO HS 01/14/24 [History] Fluticasone Nasal [place] [Flonase Nasal [place]] 2 spr EA NOSTRIL HS 01/14/24 [History] Furosemide [Lasix] 20 mg PO DAILY 01/14/24 [History] Isosorbide Mononitrate ER [Imdur] 30 mg PO DAILY 01/14/24 [History] Levothyroxine Sodium 150 mcg PO DAILY 01/14/24 [History] Metoprolol Succinate (ER) [Toprol XL] 50 mg PO DAILY 01/14/24 [History] Nystatin 100,000 Unit/gm Powd [Mycostatin Powder] 1 applic TOPICAL BID 01/14/24 [History] Spironolactone [Aldactone] 25 mg PO DAILY 01/14/24 [History] Tirzepatide [Mounjaro] 2.5 mg SQ TU 01/14/24 [History] metFORMIN HCL 1,000 mg PO BID 01/14/24 [History] Ondansetron [Zofran] 4 mg PO Q8HR PRN 4 Days #10 tab 01/17/24 [Rx] Doxycycline [Vibramycin] 100 mg PO BID 7 Days #14 capsule 02/02/24 [Rx] Follow up Appointment(s)/Referral(s): Cuca Iqbal MD [Primary Care Provider] - 1-2 days Tommy Andrews MD [STAFF PHYSICIAN] - 1 Week Discharge Disposition: HOME SELF-CARE
--- NOTE | 2024-02-02 17:17 | P.PN ---
Subjective Progress Note Date: 02/02/24 Principal diagnosis: Reason for follow-up is left upper extremity cellulitis Patient is a 53-year-old female with a past medical history significant for diabetes mellitus hypertension hyperlipidemia COPD CVA TIA in this patient who was recently admitted to this facility for chest pain patient also developed left antecubital fossa IV site phlebitis local culture positive for MSSA treated with cefazolin followed by oral Keflex now presenting back to the hospital with worsening swelling and redness CT did show some swelling but no drainable abscess. On today's evaluation that is 02/02/2024, patient has been afebrile, patient is breathing comfortably and is currently on room air, patient denies having any significant cough no chest pain shortness of breath, patient denies nausea vomiting or diarrhea and no abdominal pain patient did have a normal resolution of the left upper extremity swelling redness no drainage. Patient did have white count of 6.42, creatinine 0.79 blood culture has been negative Objective - Vital Signs Vital signs: Vital Signs Temp 98.0 F 02/02/24 07:19 Pulse 64 02/02/24 07:19 Resp 19 02/02/24 08:00 BP 143/82 02/02/24 07:19 Pulse Ox 95 02/02/24 07:19 FiO2 Intake & Output 02/01/24 02/02/24 02/02/24 18:59 06:59 18:59 Intake Total 1620 Balance 1620 Intake: Oral 1620 Other: Voiding Method Toilet Toilet Toilet - Exam GENERAL DESCRIPTION: An elderly male lying in bed in no distress RESPIRATORY SYSTEM: Unlabored breathing , decreased breath sounds at bases HEART: S1 S2 regular rate and rhythm , ABDOMEN: Soft , no tenderness EXTREMITIES: Left antecubital fossa and arm swelling redness has improved and there is no drainage - Labs CBC & Chem 7: 02/02/24 05:51 02/02/24 05:51 Labs: Abnormal Lab Results - Last 24 Hours (Table) 02/01/24 02/01/24 02/01/24 Range/Units 12:45 17:13 20:24 RBC (4.10-5.20) X 10*6/uL Hgb (12.0-15.0) g/dL Hct (37.2-46.3) % MCH (27.0-32.0) pg MCHC (32.0-37.0) g/dL RDW (11.5-14.5) % Chloride (98-107) mmol/L Carbon Dioxide (22-30) mmol/L Glucose (74-99) mg/dL POC Glucose (mg/dL) 128 H 181 H 187 H (70-110) mg/dL Calcium (8.4-10.2) mg/dL Total Protein (6.3-8.2) g/dL Albumin (3.5-5.0) g/dL 02/02/24 02/02/24 Range/Units 05:51 05:51 RBC 3.92 L (4.10-5.20) X 10*6/uL Hgb 10.0 L (12.0-15.0) g/dL Hct 32.6 L (37.2-46.3) % MCH 25.5 L (27.0-32.0) pg MCHC 30.7 L (32.0-37.0) g/dL RDW 15.6 H (11.5-14.5) % Chloride 114 H (98-107) mmol/L Carbon Dioxide 21 L (22-30) mmol/L Glucose 119 H (74-99) mg/dL POC Glucose (mg/dL) (70-110) mg/dL Calcium 8.1 L (8.4-10.2) mg/dL Total Protein 5.7 L (6.3-8.2) g/dL Albumin 3.0 L (3.5-5.0) g/dL Microbiology - Last 24 Hours (Table) 01/29/24 20:59 Blood Culture - Preliminary Blood 01/29/24 20:54 Blood Culture - Preliminary Blood Assessment and Plan (1) Left arm cellulitis Status: Acute Code(s): L03.114 - CELLULITIS OF LEFT UPPER LIMB SNOMED Code(s): 04275040924045388 (2) Allergy to multiple antibiotics Status: Acute Code(s): Z88.1 - ALLERGY STATUS TO OTHER ANTIBIOTIC AGENTS SNOMED Code(s): 619716793 Plan: 1patient presented to hospital with increasing pain swelling to the left antecubital. In this patient who was recently admitted to this facility and did have a left antecubital fossa IV site phlebitis did have some purulent drainage and culture positive for MSSA blood culture negative now presenting to the hospital with worsening pain and swelling and some purulent drainage failing outpatient oral Keflex therapy, patient did have a CT that was negative for any abscess and no drainage was noticed on examination today 2-patient seem to have shown improvement to the left upper extreme cellulitis culture has been negative and resistant pathogen she will finish therapy with oral doxycycline and close outpatient follow-up discussed with the admitting physician working on discharge Dictation was produced using [employer] software. please excuse any grammatical, word or spelling errors. Time with Patient: Less than 30
== END 2024-02-02 13:51 | disposition home or self-care (01) ==
LOC: EC 15:55 → 6NMEDSUR 20:45 → 3SCARD 01-30 03:33 → 5NMEDONC 01-30 19:18
PROVIDERS: ADMIT Internal Medicine; ATTEND Internal Medicine
DX: L03.114 Cellulitis of left upper limb (principal); I82.612 Acute embolism and thrombosis of superficial veins of left upper extremity; E78.5 Hyperlipidemia, unspecified; E11.9 Type 2 diabetes mellitus without complications; E03.9 Hypothyroidism, unspecified; I25.10 Atherosclerotic heart disease of native coronary artery without angina pectoris; Z86.73 Personal history of transient ischemic attack (TIA), and cerebral infarction without residual deficits; Z87.891 Personal history of nicotine dependence; Z88.1 Allergy status to other antibiotic agents
CPT/HCPCS: 96376; 96366 ×5; 96367 ×2; 96365; 96375; 99285; 36415; 93005 ×2; 85379; 80053 ×3; 85652; 82565; 82550; 83605; 84484 ×2; 85025 ×3; 80202; 85610; 85730; 86140; 81001; 87040; 93971; 73200; G0378 ×7; J3370 ×4; J2405 ×2; J0692 ×5; J2270

== ENCOUNTER 2024-02-20 15:15 | Observation (INO) | payer OTHER ==
--- NOTE | 2024-02-20 15:56 | ED ---
Weakness HPI - General Chief complaint: Weakness Stated complaint: weakness Time Seen by Provider: 02/20/24 15:17 Source: patient, EMS, RN notes reviewed Mode of arrival: EMS Limitations: no limitations - History of Present Illness Initial comments: This is a 53 year old male who presents to the emergency department for weakness. States that she has been dealing with low blood pressure recently. She takes multiple blood pressure medications and she has been having episodes of hypotension recently. Patient was told to take her blood pressure several times at home each day, which she has been doing. Her blood pressure has dropped to the 60s systolically. However, patient states that she is still taking her blood pressure medication even when her blood pressure drops like this. This is causing her to feel very weak. Denies any chest pain. She is short of breath at baseline secondary to COPD. This is not worse than normal. Blood sugar also elevated as she has not had her insulin yet today. MD Complaint: generalized weakness - Related Data Home Medications Medication Instructions Recorded Confirmed Montelukast [Singulair] 10 mg PO HS 04/16/17 02/20/24 Losartan Potassium [Cozaar] 25 mg PO DAILY 06/24/17 02/20/24 PARoxetine HCL [Paxil] 40 mg PO DAILY 12/27/18 02/20/24 Insulin Aspart [NovoLOG Flexpen] 15 units SQ AC-TID 04/30/22 02/20/24 Empagliflozin [Jardiance] 10 mg PO DAILY 01/13/23 02/20/24 Insulin Aspart [NovoLOG Flexpen] See Protocol SQ AC-TID 01/13/23 02/20/24 Insulin Glargine,Hum.rec.anlog 50 units SQ HS 01/13/23 02/20/24 [Lantus Solostar Pen] oxyCODONE-APAP 5-325MG [Percocet 1 tab PO TID 01/13/23 02/20/24 5-325 mg] tiZANidine [Zanaflex] 4 mg PO HS 01/13/23 02/20/24 Atorvastatin [Lipitor] 40 mg PO HS 01/14/24 02/20/24 Butalb/APAP/Caff 50-325-40Mg 1 tab PO BID PRN 01/14/24 02/20/24 [Fioricet 50-325-40] Diclofenac Sodium Gel [Voltaren 1% 1 applic TOPICAL BID PRN 01/14/24 02/20/24 Gel] Ergocalciferol [Vitamin D2 (1250 1,250 mcg PO TU 01/14/24 02/20/24 Mcg = 97253 Iu)] Ezetimibe [Zetia] 10 mg PO HS 01/14/24 02/20/24 Fluticasone Nasal [place] [Flonase 2 spr EA NOSTRIL HS 01/14/24 02/20/24 Nasal [place]] Furosemide [Lasix] 20 mg PO DAILY 01/14/24 02/20/24 Isosorbide Mononitrate ER [Imdur] 30 mg PO DAILY 01/14/24 02/20/24 Levothyroxine Sodium 150 mcg PO DAILY 01/14/24 02/20/24 Metoprolol Succinate (ER) [Toprol 50 mg PO DAILY 01/14/24 02/20/24 XL] Nystatin 100,000 Unit/gm Powd 1 applic TOPICAL BID 01/14/24 02/20/24 [Mycostatin Powder] Spironolactone [Aldactone] 25 mg PO DAILY 01/14/24 02/20/24 Tirzepatide [Mounjaro] 2.5 mg SQ TU 01/14/24 02/20/24 metFORMIN HCL 1,000 mg PO BID 01/14/24 02/20/24 Ferrous Sulfate [Feosol] 325 mg PO DAILY 02/20/24 02/20/24 Pantoprazole [Protonix] 40 mg PO DAILY 02/20/24 02/20/24 Previous Rx's Medication Instructions Recorded Prasugrel [Effient] 10 mg PO DAILY #90 tablet 01/14/23 Ondansetron [Zofran] 4 mg PO Q8HR PRN 4 Days #10 tab 01/17/24 Allergies Allergy/AdvReac Type Severity Reaction Status Date / Time adhesive Allergy red skin Verified 02/20/24 17:02 Iodinated Contrast Media Allergy Itching Verified 02/20/24 17:02 [Iodinated Contrast Media - IV Dye] prednisone Allergy Rapid Verified 02/20/24 17:02 Heart Rate, Panic attack Sulfa (Sulfonamide Allergy Unknown Verified 02/20/24 17:02 Antibiotics) verapamil Allergy Anaphylaxis Verified 02/20/24 17:02 celecoxib [From Celebrex] AdvReac CAUSES GI Verified 02/20/24 17:02 BLEEDING cephalexin monohydrate AdvReac Vomiting Verified 02/20/24 17:02 [From Keflex] diphenhydramine AdvReac arm burned Verified 02/20/24 17:02 [From Benadryl] when given IV Penicillins AdvReac Nausea & Verified 02/20/24 17:02 Vomiting tramadol AdvReac Nausea & Verified 02/20/24 17:02 Vomiting Review of Systems ROS Statement: Those systems with pertinent positive or pertinent negative responses have been documented in the HPI. ROS Other: All systems not noted in ROS Statement are negative. Past Medical History Past Medical History: Asthma, Chest Pain / Angina, COPD, CVA/TIA, Diabetes Mellitus, Hyperlipidemia, Hypertension Additional Past Medical History / Comment(s): neuoropathy, RT CATARACT TIA History of Any Multi-Drug Resistant Organisms: None Reported Past Surgical History: Adenoidectomy, Cholecystectomy, Heart Catheterization W ith Stent, Tonsillectomy Additional Past Surgical History / Comment(s): D&C, carpal tunnel surgery left , LT ARM SX FOR "PINCHED NERVE", LT THUMB TRIGGER FINGER, rae neuroma removed left foot, heart cath 2015 , right ankle fx 01/2018 no surgery , LT CATARACT REMOVED WITH LENS IMPLANT thyroidectomy Past Anesthesia/Blood Transfusion Reactions: Previous Problems w/ Anesthesia, Motion Sickness Additional Past Anesthesia/Blood Transfusion Reaction / Comment(s): difficulty waking from anesthesia Date of Last Stent Placement:: 2022 Past Psychological History: Anxiety, Depression, Panic Disorder Smoking Status: Former smoker Past Alcohol Use History: Occasional Past Drug Use History: None Reported - Past Family History Father Family Medical History: Cancer Additional Family Medical History / Comment(s): skin Mother Family Medical History: Diabetes Mellitus, Hypertension, Osteoarthritis (OA) Additional Family Medical History / Comment(s): MURMUR Sister(s) Family Medical History: Cancer Additional Family Medical History / Comment(s): ovarian General Exam Limitations: no limitations General appearance: alert, in no apparent distress Head exam: Present: atraumatic, normocephalic, normal inspection Respiratory exam: Present: wheezes, decreased breath sounds, prolonged expiratory Cardiovascular Exam: Present: regular rate, normal rhythm, normal heart sounds. Absent: systolic murmur, diastolic murmur, rubs, gallop, clicks GI/Abdominal exam: Present: soft, normal bowel sounds. Absent: distended, tenderness, guarding, rebound, rigid Neurological exam: Present: alert, oriented X3, CN II-XII intact Psychiatric exam: Present: normal affect, normal mood Skin exam: Present: warm, dry, intact, normal color. Absent: rash Course Vital Signs 02/20/24 02/20/24 02/20/24 15:18 17:24 18:00 Temperature 97.3 F L Pulse Rate 81 82 78 Respiratory 18 18 18 Rate Blood Pressure 92/62 94/62 107/57 O2 Sat by Pulse 98 98 99 Oximetry Medical Decision Making - Medical Decision Making This is a 53 year old female who presents to the emergency department for weakness. Was pt. sent in by a medical professional or institution? @ -No Did you speak to anyone other than the patient for history? @ -No Did you review nursing and triage notes? @ -Yes, and I agree, it is accurate with regards to the patient's symptoms. Were old charts reviewed? @ -No Differential Diagnosis? @ -Differential Weakness: Hypoglycemia, shock, sepsis, hyponatremia, anemia, infection, AR, ETOH, adverse medicine reaction, overdose, stroke, this is not meant to be an all-inclusive list. EKG interpreted by me (3pts min.)? @ -EKG interpreted by me demonstrating the following: Sinus rhythm. Ventricular rate 82 bpm, NE interval 156 ms, QRS duration 90 ms, QTc 429 ms. X-rays interpreted by me (1pt min.)? @ -Chest x-ray obtained, my interpretation identifies no localized consolid ations or infiltrates. CT interpreted by me (1pt min.)? @ -Not obtained U/S interpreted by me (1pt. min.)? @ -Not obtained What testing was considered but not performed? (CT, X-rays, U/S, labs)? Why? @ -None What meds were considered but not given? Why? @ -None Did you discuss the management of the patient with other professionals? @ -No Did you reconcile home meds? @ -Yes Was smoking cessation discussed for >3mins.? @ -No Was critical care preformed (if so, how long)? @ -No Were there social determinants of health that impacted care today? How? (Homelessness, low income, unemployed, alcoholism, drug addiction, transportation, low edu. Level, literacy, decrease access to med. care, nursing home, rehab)? @ -No Was there de-escalation of care discussed even if they declined? (Discuss DNR or withdrawal of care, Hospice)? @ -No What co-morbidities impacted this encounter? (DM, HTN, Smoking, COPD, CAD, Cancer, CVA, Hep., AIDS, mental health diagnosis, sleep apnea, morbid obesity)? @ -Asthma, COPD, DM, HLD, HTN Was patient admitted / discharged? @ -Admitted. Lab work demonstrates an elevated lactic acid of 2.5 and glucose is elevated at 326. Patient admits to missing insulin dose last night. Acetone negative and there is no sign of DKA. COVID, influenza, RSV testing negative. Urinalysis negative for signs of infection. Chest x-ray reveals no acute process. BP 92/62 on arrival. BP dropped to as low as 78/48 while in the emergency department. She was aggressively hydrated with 2 L of IV fluids and BP did start to improve. Given the level of the patient's pressure, she was admitted to medicine for further management of hypotension and weakness. Maintenance fluids initiated. Blood pressure medication was held when reconciling patient's medications as well. Undiagnosed new problem with uncertain prognosis? @ -None Drug Therapy requiring intensive monitoring for toxicity (Heparin, Nitro, Insulin, Cardizem)? @ -None Were any procedures done? @ -None Diagnosis/symptom? @ -Weakness, hypotension Acute, or Chronic, or Acute on Chronic? @ -Acute Uncomplicated (without systemic symptoms) or Complicated (systemic symptoms)? @ -Complicated Side effects of treatment? @ -None Exacerbation, Progression, or Severe Exacerbation] @ -Not applicable Poses a threat to life or bodily function? @ -Yes This case was discussed in detail with the attending ED physician, Dr. Rene. Presentation, findings, and treatment plan discussed in detail as well. - Lab Data Result diagrams: 02/20/24 15:24 02/20/24 15: Lab Results 02/20/24 02/20/24 02/20/24 Range/Units :24 15:24 15:24 WBC 5.8 (3.8-10.6) k/uL RBC 4.28 (3.80-5.40) m/uL Hgb 11.1 L (11.4-16.0) gm/dL Hct 35.3 (34.0-46.0) % MCV 82.4 (80.0-100.0) fL MCH 26.0 (25.0-35.0) pg MCHC 31.5 (31.0-37.0) g/dL RDW 15.3 (11.5-15.5) % Plt Count 159 (150-450) k/uL MPV 8.1 Neutrophils % 68 % Lymphocytes % 21 % Monocytes % 6 % Eosinophils % 3 % Basophils % 0 % Neutrophils # 4.0 (1.3-7.7) k/uL Lymphocytes # 1.2 (1.0-4.8) k/uL Monocytes # 0.4 (0-1.0) k/uL Eosinophils # 0.2 (0-0.7) k/uL Basophils # 0.0 (0-0.2) k/uL Hypochromasia Slight PT 10.8 (10.0-12.5) sec INR 1.0 (<1.2) APTT 24.2 (22.0-30.0) sec Sodium 131 L (137-145) mmol/L Potassium 4.3 (3.5-5.1) mmol/L Chloride 101 (98-107) mmol/L Carbon Dioxide 21 L (22-30) mmol/L Anion Gap 9 mmol/L BUN 17 (7-17) mg/dL Creatinine 0.78 (0.52-1.04) mg/dL Est GFR (CKD-EPI)AfAm >90 (>60 ml/min/1.73 sqM) Est GFR (CKD-EPI)NonAf 86 (>60 ml/min/1.73 sqM) Glucose 326 H (74-99) mg/dL POC Glucose (mg/dL) (70-110) mg/dL POC Glu Wheel Truer ID Lactic Ac Sepsis Rflx Plasma Lactic Acid Wil (0.7-2.0) mmol/L Calcium 8.1 L (8.4-10.2) mg/dL Phosphorus 4.2 (2.5-4.5) mg/dL Magnesium 1.8 (1.6-2.3) mg/dL Total Bilirubin 0.7 (0.2-1.3) mg/dL AST 26 (14-36) U/L ALT 24 (4-34) U/L Alkaline Phosphatase 78 (38-126) U/L Troponin I (0.000-0.034) ng/mL Total Protein 6.2 L (6.3-8.2) g/dL Albumin 3.6 (3.5-5.0) g/dL Acetone, Qual Negative (Negative) Influenza Type A (PCR) (Not Detectd) Influenza Type B (PCR) (Not Detectd) RSV (PCR) (Not Detectd) SARS-CoV-2 (PCR) (Not Detectd) 02/20/24 02/20/24 02/20/24 Range/Units 15:24 15:24 15:24 WBC (3.8-10.6) k/uL RBC (3.80-5.40) m/uL Hgb (11.4-16.0) gm/dL Hct (34.0-46.0) % MCV (80.0-100.0) fL MCH (25.0-35.0) pg MCHC (31.0-37.0) g/dL RDW (11.5-15.5) % Plt Count (150-450) k/uL MPV Neutrophils % % Lymphocytes % % Monocytes % % Eosinophils % % Basophils % % Neutrophils # (1.3-7.7) k/uL Lymphocytes # (1.0-4.8) k/uL Monocytes # (0-1.0) k/uL Eosinophils # (0-0.7) k/uL Basophils # (0-0.2) k/uL Hypochromasia PT (10.0-12.5) sec INR (<1.2) APTT (22.0-30.0) sec Sodium (137-145) mmol/L Potassium (3.5-5.1) mmol/L Chloride (98-107) mmol/L Carbon Dioxide (22-30) mmol/L Anion Gap mmol/L BUN (7-17) mg/dL Creatinine (0.52-1.04) mg/dL Est GFR (CKD-EPI)AfAm (>60 ml/min/1.73 sqM) Est GFR (CKD-EPI)NonAf (>60 ml/min/1.73 sqM) Glucose (74-99) mg/dL POC Glucose (mg/dL) (70-110) mg/dL POC Glu Wheel Truer ID Lactic Ac Sepsis Rflx Plasma Lactic Acid Wil 2.5 H* (0.7-2.0) mmol/L Calcium (8.4-10.2) mg/dL Phosphorus (2.5-4.5) mg/dL Magnesium (1.6-2.3) mg/dL Total Bilirubin (0.2-1.3) mg/dL AST (14-36) U/L ALT (4-34) U/L Alkaline Phosphatase (38-126) U/L Troponin I <0.012 (0.000-0.034) ng/mL Total Protein (6.3-8.2) g/dL Albumin (3.5-5.0) g/dL Acetone, Qual (Negative) Influenza Type A (PCR) Not Detected (Not Detectd) Influenza Type B (PCR) Not Detected (Not Detectd) RSV (PCR) Not Detected (Not Detectd) SARS-CoV-2 (PCR) Not Detected (Not Detectd) 02/20/24 02/20/24 Range/Units 16:03 16:33 WBC (3.8-10.6) k/uL RBC (3.80-5.40) m/uL Hgb (11.4-16.0) gm/dL Hct (34.0-46.0) % MCV (80.0-100.0) fL MCH (25.0-35.0) pg MCHC (31.0-37.0) g/dL RDW (11.5-15.5) % Plt Count (150-450) k/uL MPV Neutrophils % % Lymphocytes % % Monocytes % % Eosinophils % % Basophils % % Neutrophils # (1.3-7.7) k/uL Lymphocytes # (1.0-4.8) k/uL Monocytes # (0-1.0) k/uL Eosinophils # (0-0.7) k/uL Basophils # (0-0.2) k/uL Hypochromasia PT (10.0-12.5) sec INR (<1.2) APTT (22.0-30.0) sec Sodium (137-145) mmol/L Potassium (3.5-5.1) mmol/L Chloride (98-107) mmol/L Carbon Dioxide (22-30) mmol/L Anion Gap mmol/L BUN (7-17) mg/dL Creatinine (0.52-1.04) mg/dL Est GFR (CKD-EPI)AfAm (>60 ml/min/1.73 sqM) Est GFR (CKD-EPI)NonAf (>60 ml/min/1.73 sqM) Glucose (74-99) mg/dL POC Glucose (mg/dL) 346 H (70-110) mg/dL POC Glu Wheel Truer ID Leida Rodriguez Lactic Ac Sepsis Rflx Y Plasma Lactic Acid Wil (0.7-2.0) mmol/L Calcium (8.4-10.2) mg/dL Phosphorus (2.5-4.5) mg/dL Magnesium (1.6-2.3) mg/dL Total Bilirubin (0.2-1.3) mg/dL AST (14-36) U/L ALT (4-34) U/L Alkaline Phosphatase (38-126) U/L Troponin I (0.000-0.034) ng/mL Total Protein (6.3-8.2) g/dL Albumin (3.5-5.0) g/dL Acetone, Qual (Negative) Influenza Type A (PCR) (Not Detectd) Influenza Type B (PCR) (Not Detectd) RSV (PCR) (Not Detectd) SARS-CoV-2 (PCR) (Not Detectd) - Radiology Data Radiology results: report reviewed, image reviewed Disposition Clinical Impression: Hypotension, Weakness Disposition: ADMITTED IP TO THIS HOSP
[2024-02-20] MEDS: SODIUM CHLORIDE 0.9% 1,000 ML IV STA ×2 (16:01→17:21)
[2024-02-20 16:05] LABS: Glucose,Whole Blood 346 mg/dL (70-110)
[2024-02-20 16:12] LABS: Basophils % (A) 0 %; Eosinophils # (A) 0.2 k/uL (0-0.7); Eosinophils % (A) 3 %; HCT 35.3 % (34.0-46.0); HGB 11.1 gm/dL (11.4-16.0); Hypochromasia Slight; Lymphocytes # (A) 1.2 k/uL (1.0-4.8); Lymphocytes % (A) 21 %; MCHC 31.5 g/dL (31.0-37.0); MCV 82.4 fL (80.0-100.0); Mean Platelet Volume 8.1; Monocytes # (A) 0.4 k/uL (0-1.0); Monocytes % (A) 6 %; Neutrophils % (A) 68 %; Platelet Count 159 k/uL (150-450); RBC 4.28 m/uL (3.80-5.40); RDW 15.3 % (11.5-15.5); WBC 5.8 k/uL (3.8-10.6)
--- NOTE | 2024-02-20 16:25 | XR ---
EXAMINATION TYPE: XR chest 2V DATE OF EXAM: 02/20/2024 4:16 PM CLINICAL INDICATION:Female, 53 years old with history of Weakness; [facility] COMPARISON: Chest radiographs from 01/14/2024 TECHNIQUE: XR chest 2V Frontal and lateral views of the chest. FINDINGS: Lungs/Pleura: There is no evidence of pleural effusion, focal consolidation, or pneumothorax. Pulmonary vascularity: Unremarkable. Heart/mediastinum: Cardiomediastinal silhouette is prominent in size. Musculoskeletal: No acute osseous pathology. Other findings: None IMPRESSION: No acute cardiopulmonary disease/process.
[2024-02-20 16:26] LABS: ALT 24 U/L (4-34); African American GFR (CKD) >90 (>60 ml/min/1.73 sqM); Albumin 3.6 g/dL (3.5-5.0); Anion Gap 9 mmol/L; Blood Urea Nitrogen 17 mg/dL (7-17); Calcium 8.1 mg/dL (8.4-10.2); Carbon Dioxide 21 mmol/L (22-30); Chloride 101 mmol/L (98-107); Glucose 326 mg/dL (74-99); Non-African American GFR(CKD) 86 (>60 ml/min/1.73 sqM); Phosphorus 4.2 mg/dL (2.5-4.5); Sodium 131 mmol/L (137-145); Total Bilirubin 0.7 mg/dL (0.2-1.3); Total Protein 6.2 g/dL (6.3-8.2)
[2024-02-20 16:30] LABS: Potassium 4.3 mmol/L (3.5-5.1)
[2024-02-20 16:31] LABS: AST 26 U/L (14-36); Alkaline Phosphatase 78 U/L (38-126); Magnesium 1.8 mg/dL (1.6-2.3)
[2024-02-20 16:32] LABS: Partial Thromboplastin Time 24.2 sec (22.0-30.0); Prothrombin Time 10.8 sec (10.0-12.5)
[2024-02-20] MEDS: INSULIN REGULAR 100 UNIT/ML VIAL (IV) IV ONE (17:21)
[2024-02-20] MEDS ORDERED: NALOXONE 0.4 MG/ML 1 ML VIAL IV PRN (17:31)
[2024-02-20] MEDS ORDERED: ACETAMINOPHEN TAB 325 MG TAB PO PRN (17:31)
[2024-02-20] MEDS ORDERED: ONDANSETRON 4 MG TAB PO PRN (17:33)
[2024-02-20] MEDS ORDERED: DICLOFENAC SODIUM GEL 50 GM TUBE TOPICAL PRN (17:33)
[2024-02-20] MEDS ORDERED: BUTALB/APAP/CAFF 50-325-40MG TAB PO PRN (17:33)
[2024-02-20 17:58] LABS: Appearance,Urine Clear (Clear); Bilirubin,Urine Negative (Negative); Blood,Urine Negative (Negative); Color,Urine Colorless; Glucose,Urine (UA) 4+ (Negative); Ketones,Urine Negative (Negative); Leukocyte Esterase,Urine Negative (Negative); Nitrite,Urine Negative (Negative); PH, Urine 5.5 (5.0-8.0); Protein,Urine Negative (Negative); Specific Gravity,Urine 1.009 (1.001-1.035); Urobilinogen,Urine <2.0 mg/dL (<2.0)
[2024-02-20] MEDS: SODIUM CHLORIDE 0.9% 1,000 ML IV SCH (18:03)
[2024-02-20 22:06] LABS: Glucose,Whole Blood 205 mg/dL (70-110)
[2024-02-20] MEDS: oxyCODONE-APAP 5-325MG 1 EACH TAB PO SCH (22:36)
[2024-02-20] MEDS: ATORVASTATIN 40 MG TAB PO SCH (22:36)
[2024-02-20] MEDS: MONTELUKAST 10 MG TAB PO SCH (22:37)
[2024-02-20] MEDS: EZETIMIBE 10 MG TAB PO SCH (22:37)
[2024-02-20] MEDS: metFORMIN 500 MG TAB PO SCH (22:37)
[2024-02-20] MEDS: FLUTICASONE 50MCG/SPRAY NASAL 16GM EA NOSTRIL SCH (22:38)
[2024-02-20] MEDS: NYSTATIN 100,000 UNIT/GM POWD 15 GM TOPICAL SCH (22:38)
[2024-02-20] MEDS: tiZANidine 4 MG TAB PO SCH (22:38)
[2024-02-20] MEDS: INSULIN DETEMIR (LEVEMIR) 100 UNIT/ML SYR SQ SCH (22:39)
[2024-02-21] MEDS: LEVOTHYROXINE 75 MCG TAB PO SCH (05:56)
[2024-02-21 07:09] LABS: Glucose,Whole Blood 198 mg/dL (70-110)
[2024-02-21] MEDS: DAPAGLIFLOZIN PROPANEDIOL 5 MG TABLET PO SCH (08:32)
[2024-02-21] MEDS: INSULIN ASPART (NovoLOG) 100 UNIT/ML VIAL SQ SCH ×2 (08:33→12:50)
[2024-02-21] MEDS: FERROUS SULFATE 325 MG TAB PO SCH (08:33)
[2024-02-21] MEDS: PANTOPRAZOLE 40 MG TABLET PO SCH (08:33)
[2024-02-21] MEDS: PRASUGREL 10 MG TAB PO SCH (08:34)
[2024-02-21] MEDS: PARoxetine 20 MG TAB PO SCH (08:34)
[2024-02-21] MEDS: ONDANSETRON 4 MG/2 ML VIAL IVP PRN (10:32)
[2024-02-21 10:37] LABS: Glucose,Whole Blood 200 mg/dL (70-110)
--- NOTE | 2024-02-21 11:21 | P.HPIM ---
History of Present Illness Patient a pleasant 53-year-old female came in with complaints of generalized weakness low blood pressure with systolics going down to as low as 70s and 80s at home and here her blood pressure on admission was 95 x 61. Patient was star eliel on Mounjaro and since then patient has significant weight loss, because of which probably her blood sugars are coming down. Patient is on losartan 25 mg along with Lasix 20 mg and Aldactone for diastolic dysfunction and severe aortic stenosis with mean gradient of 43. Patient is still a little bit lightheaded and patient is hyponatremic at this time. Patient is feeling slightly better patient is receiving IV fluids at 130 cc/h which her being cut down to 75 cc/h patient does not have any other symptoms at this time. Patient denies any syncopal episode REVIEW OF SYSTEMS: CONSTITUTIONAL: No fever, no malaise, no fatigue. HEENT: No recent visual problems or hearing problems. Denied any sore throat. CARDIOVASCULAR: No chest pain, orthopnea, PND, no palpitations, no syncope. PULMONARY: No shortness of breath, no cough, no hemoptysis. GASTROINTESTINAL: No diarrhea, no nausea, no vomiting, no abdominal pain. NEUROLOGICAL: No headaches, no weakness, no numbness. HEMATOLOGICAL: Denies any bleeding or petechiae. GENITOURINARY: Denies any burning micturition, frequency, or urgency. MUSCULOSKELETAL/RHEUMATOLOGICAL: Denies any joint pain, swelling, or any muscle pain. ENDOCRINE: Denies any polyuria or polydipsia. The rest of the 14-point review of systems is negative. PHYSICAL EXAMINATION: GENERAL: The patient is alert and oriented x3, not in any acute distress. Well developed, well nourished. HEENT: Pupils are round and equally reacting to light. EOMI. No scleral icterus. No conjunctival pallor. Normocephalic, atraumatic. No pharyngeal erythema. No thyromegaly. CARDIOVASCULAR: S1 and S2 present. No , rubs, or gallops. Systolic murmur in the aortic area PULMONARY: Chest is clear to auscultation, no wheezing or crackles. ABDOMEN: Soft, nontender, nondistended, normoactive bowel sounds. No palpable organomegaly. MUSCULOSKELETAL: No joint swelling or deformity. EXTREMITIES: No cyanosis, clubbing, or pedal edema. NEUROLOGICAL: Gross neurological examination did not reveal any focal deficits. SKIN: No rashes. Assessment and plan -Dizziness secondary to hypotension: Hold off on diuretics and losartan. Patient does have severe arctic stenosis patient will be monitored overnight because of these reasons if needed patient will be started on low-dose of losartan never had any CHF exacerbation although does have diastolic function -Hypovolemic hyponatremia: IV fluids as mentioned above -Hypertension patient is presently hypotensive because of loss of weight from her medications -Type 2 diabetes mellitus uncontrolled elevated blood sugars and her blood sugars at home are still elevated we may need to increase the dose of long- acting insulin rest of her medications will be resumed and continued -Asthma/COPD without any acute exacerbation CVA TIA in the past -Hyperlipidemia -Hypertension -Depression For above-mentioned chronic medical problems patient will be resumed on appropriate home medications DVT prophylaxis: Lovenox Past Medical History Past Medical History: Asthma, Chest Pain / Angina, COPD, CVA/TIA, Diabetes Mellitus, Hyperlipidemia, Hypertension Additional Past Medical History / Comment(s): neuoropathy, RT CATARACT TIA History of Any Multi-Drug Resistant Organisms: None Reported Past Surgical History: Adenoidectomy, Cholecystectomy, Heart Catheterization With Stent, Tonsillectomy Additional Past Surgical History / Comment(s): D&C, carpal tunnel surgery left , LT ARM SX FOR "PINCHED NERVE", LT THUMB TRIGGER FINGER, rae neuroma removed left foot, heart cath 2015 , right ankle fx 01/2018 no surgery , LT CATARACT REMOVED WITH LENS IMPLANT thyroidectomy Past Anesthesia/Blood Transfusion Reactions: Previous Problems w/ Anesthesia, Motion Sickness Additional Past Anesthesia/Blood Transfusion Reaction / Comment(s): difficulty waking from anesthesia Date of Last Stent Placement:: 2022 Past Psychological History: Anxiety, Depression, Panic Disorder Additional Psychological History / Comment(s): niece is her life care planner. Smoking Status: Former smoker Past Alcohol Use History: Occasional Additional Past Alcohol Use History / Comment(s): Patient started smoking at age 13 one half pack per day and quit around 1991 Past Drug Use History: None Reported Additional Drug Use History / Comment(s): . - Past Family History Father Family Medical History: Cancer Additional Family Medical History / Comment(s): skin Mother Family Medical History: Diabetes Mellitus, Hypertension, Osteoarthritis (OA) Additional Family Medical History / Comment(s): MURMUR Sister(s) Family Medical History: Cancer Additional Family Medical History / Comment(s): ovarian Medications and Allergies Home Medications Medication Instructions Recorded Confirmed Type Montelukast [Singulair] 10 mg PO HS 04/16/17 02/20/24 History Losartan Potassium [Cozaar] 25 mg PO DAILY 06/24/17 02/20/24 History PARoxetine HCL [Paxil] 40 mg PO DAILY 12/27/18 02/20/24 History Insulin Aspart [NovoLOG Flexpen] 15 units SQ AC-TID 04/30/22 02/20/24 History Empagliflozin [Jardiance] 10 mg PO DAILY 01/13/23 02/20/24 History Insulin Aspart [NovoLOG Flexpen] See Protocol SQ AC-TID 01/13/23 02/20/24 History Insulin Glargine,Hum.rec.anlog 50 units SQ HS 01/13/23 02/20/24 History [Lantus Solostar Pen] oxyCODONE-APAP 5-325MG [Percocet 1 tab PO TID 01/13/23 02/20/24 History 5-325 mg] tiZANidine [Zanaflex] 4 mg PO HS 01/13/23 02/20/24 History Prasugrel [Effient] 10 mg PO DAILY #90 tablet 01/14/23 02/20/24 Rx Atorvastatin [Lipitor] 40 mg PO HS 01/14/24 02/20/24 History Butalb/APAP/Caff 50-325-40Mg 1 tab PO BID PRN 01/14/24 02/20/24 History [Fioricet 50-325-40] Diclofenac Sodium Gel [Voltaren 1% 1 applic TOPICAL BID PRN 01/14/24 02/20/24 History Gel] Ergocalciferol [Vitamin D2 (1250 1,250 mcg PO TU 01/14/24 02/20/24 History Mcg = 56427 Iu)] Ezetimibe [Zetia] 10 mg PO HS 01/14/24 02/20/24 History Fluticasone Nasal [place] [Flonase 2 spr EA NOSTRIL HS 01/14/24 02/20/24 History Nasal [place]] Furosemide [Lasix] 20 mg PO DAILY 01/14/24 02/20/24 History Isosorbide Mononitrate ER [Imdur] 30 mg PO DAILY 01/14/24 02/20/24 History Levothyroxine Sodium 150 mcg PO DAILY 01/14/24 02/20/24 History Metoprolol Succinate (ER) [Toprol 50 mg PO DAILY 01/14/24 02/20/24 History XL] Nystatin 100,000 Unit/gm Powd 1 applic TOPICAL BID 01/14/24 02/20/24 History [Mycostatin Powder] Spironolactone [Aldactone] 25 mg PO DAILY 01/14/24 02/20/24 History Tirzepatide [Mounjaro] 2.5 mg SQ TU 01/14/24 02/20/24 History metFORMIN HCL 1,000 mg PO BID 01/14/24 02/20/24 History Ondansetron [Zofran] 4 mg PO Q8HR PRN 4 Days #10 tab 01/17/24 02/20/24 Rx Ferrous Sulfate [Feosol] 325 mg PO DAILY 02/20/24 02/20/24 History Pantoprazole [Protonix] 40 mg PO DAILY 02/20/24 02/20/24 History Allergies Allergy/AdvReac Type Severity Reaction Status Date / Time adhesive Allergy red skin Verified 02/20/24 17:02 Iodinated Contrast Media Allergy Itching Verified 02/20/24 17:02 [Iodinated Contrast Media - IV Dye] prednisone Allergy Rapid Verified 02/20/24 17:02 Heart Rate, Panic attack Sulfa (Sulfonamide Allergy Unknown Verified 02/20/24 17:02 Antibiotics) verapamil Allergy Anaphylaxis Verified 02/20/24 17:02 celecoxib [From Celebrex] AdvReac CAUSES GI Verified 02/20/24 17:02 BLEEDING cephalexin monohydrate AdvReac Vomiting Verified 02/20/24 17:02 [From Keflex] diphenhydramine AdvReac arm burned Verified 02/20/24 17:02 [From Benadryl] when given IV Penicillins AdvReac Nausea & Verified 02/20/24 17:02 Vomiting tramadol AdvReac Nausea & Verified 02/20/24 17:02 Vomiting Physical Exam Vitals: Vital Signs Temp Pulse Pulse Resp BP BP BP 02/21/24 09:33 02/21/24 07:10 97.9 F 75 17 104/70 02/21/24 01:18 97.7 F 71 14 95/61 02/20/24 22:03 98.0 F 78 14 107/73 02/20/24 21:07 97.6 F 80 18 104/75 02/20/24 18:00 78 18 107/57 02/20/24 17:24 82 18 94/62 02/20/24 15:18 97.3 F L 81 18 92/62 Pulse Ox FiO2 02/21/24 09:33 97 21 02/21/24 07:10 97 02/21/24 01:18 94 L 02/20/24 22:03 100 02/20/24 21:07 97 02/20/24 18:00 99 02/20/24 17:24 98 02/20/24 15:18 98 Intake and Output 02/20/24 02/21/24 02/21/24 22:59 06:59 14:59 Other: Voiding Method Toilet Toilet # Voids 2 Weight 98.43 kg Results CBC & Chem 7: 02/20/24 15:24 02/20/24 15:24 Labs: Abnormal Lab Results - Last 24 Hours (Table) 02/20/24 02/20/24 02/20/24 Range/Units 15:24 15:24 15:24 Hgb 11.1 L (11.4-16.0) gm/dL Sodium 131 L (137-145) mmol/L Carbon Dioxide 21 L (22-30) mmol/L Glucose 326 H (74-99) mg/dL POC Glucose (mg/dL) (70-110) mg/dL Plasma Lactic Acid Wil 2.5 H* (0.7-2.0) mmol/L Calcium 8.1 L (8.4-10.2) mg/dL Total Protein 6.2 L (6.3-8.2) g/dL Urine Glucose (UA) (Negative) 02/20/24 02/20/24 02/20/24 Range/Units 16:03 17:40 22:05 Hgb (11.4-16.0) gm/dL Sodium (137-145) mmol/L Carbon Dioxide (22-30) mmol/L Glucose (74-99) mg/dL POC Glucose (mg/dL) 346 H 205 H (70-110) mg/dL Plasma Lactic Acid Wil (0.7-2.0) mmol/L Calcium (8.4-10.2) mg/dL Total Protein (6.3-8.2) g/dL Urine Glucose (UA) 4+ H (Negative) 02/21/24 02/21/24 Range/Units 07:08 10:35 Hgb (11.4-16.0) gm/dL Sodium (137-145) mmol/L Carbon Dioxide (22-30) mmol/L Glucose (74-99) mg/dL POC Glucose (mg/dL) 198 H 200 H (70-110) mg/dL Plasma Lactic Acid Wil (0.7-2.0) mmol/L Calcium (8.4-10.2) mg/dL Total Protein (6.3-8.2) g/dL Urine Glucose (UA) (Negative)
[2024-02-21 11:55] LABS: Glucose,Whole Blood 161 mg/dL (70-110)
[2024-02-21 18:02] LABS: Glucose,Whole Blood 118 mg/dL (70-110)
[2024-02-21 20:45] LABS: Glucose,Whole Blood 168 mg/dL (70-110)
[2024-02-22 07:25] LABS: Glucose,Whole Blood 132 mg/dL (70-110)
[2024-02-22 08:28] LABS: African American GFR (CKD) >90 (>60 ml/min/1.73 sqM); Anion Gap 5 mmol/L; Blood Urea Nitrogen 13 mg/dL (7-17); Carbon Dioxide 23 mmol/L (22-30); Chloride 111 mmol/L (98-107); Glucose 138 mg/dL (74-99); Non-African American GFR(CKD) 83 (>60 ml/min/1.73 sqM); Potassium 4.2 mmol/L (3.5-5.1); Sodium 139 mmol/L (137-145)
[2024-02-22 12:21] LABS: Glucose,Whole Blood 155 mg/dL (70-110)
[2024-02-22 14:20] VITALS: BP 164/94; PULSE 98; RESP 17; TEMP 98.1
[2024-02-23] MEDS ORDERED: Tirzepatide [Mounjaro] 2.5 MG/0.5 ML Pen.Injctr SQ SCH (09:00)
[2024-02-23] MEDS ORDERED: ERGOCALCIFEROL 1,250 MCG (50,000 IU) CAPSULE PO SCH (09:00)
--- NOTE | 2024-02-24 15:51 | P.DS ---
Providers Date of admission: 02/20/24 17:27 Attending physician: Alcira Shannon Primary care physician: Cuca Huston [facility] Course: Final Diagnosis -Dizziness secondary to hypotension: Hold off on diuretics and losartan. Patient does have severe arctic stenosis -Hypovolemic hyponatremia -Hypertension patient is presently hypotensive because of loss of weight from her medications -Type 2 diabetes mellitus uncontrolled elevated blood sugars and her blood sugars at home are still elevated -Asthma/COPD without any acute exacerbation CVA TIA in the past -Hyperlipidemia -Hypertension -Depression Discharge Disposition Stable for discharge home. As mentioned she has taken off of the losartan and aldactone on discharge. Patient will also recommend to hold the Lasix. Patient to follow-up with her main production control expediter Dr. STUART Beck in the office in 1 to 2 weeks. Blood work in 2 to 3 days. Patient has a follow-up appointment with her PCP Dr. Cuca Huston on March 16 at 3 PM. Hospital Course Patient a pleasant 53-year-old female came in with complaints of generalized weakness low blood pressure with systolics going down to as low as 70s and 80s at home and here her blood pressure on admission was 95 x 61. Patient was started on Mounjaro and since then patient has significant weight loss, because of which probably her blood sugars are coming down. Patient is on losartan 25 mg along with Lasix 20 mg and Aldactone for diastolic dysfunction and severe aortic stenosis with mean gradient of 43. Patient is still a little bit lightheaded and patient is hyponatremic at this time. Patient is feeling slightly better patient is receiving IV fluids at 130 cc/h which her being cut down to 75 cc/h patient does not have any other symptoms at this time. Patient denies any syncopal episode. She was monitored overnight. Her blood pressure has improved now holding in the 110s over 70s. IV fluids her sodium level is now 139 her renal function has remained stable. Her blood glucose is in the 150s. We did discuss this case with cardiology and they recommending patient to follow-up with her known production control expediter Dr. STUART Beck in the office for further evaluation and discussion regarding her severe aortic stenosis patient may need a valvular replacement at some point. We recommended for patient to seek consultation with cardiothoracic surgery as well. Losartan has been discontinued as well as Aldactone on discharge. Is not reporting any chest pain or shortness of breath at this time. She has been up and ambulating without difficulty and reports of dizziness and lightheadedness are resolved. Please see medication reconciliation for a list of current medications. Thank you for allowing us to participate in the care of this patient. The impression and plan of care has been dictated by Rosina Neville, Nurse Practitioner as directed. Dr. Colton MD I have performed a history and physical examination and medical decision making of this patient, discussed the same with the dictator, and agree with the dictators assessment and plan as written, documented as a scribe. Based on total visit time, I have performed more than 50% of this visit. Patient Condition at Discharge: Stable Plan - Discharge Summary New Discharge Prescriptions: Continue Montelukast [Singulair] 10 mg PO HS PARoxetine HCL [Paxil] 40 mg PO DAILY Insulin Glargine,Hum.rec.anlog [Lantus Solostar Pen] 50 units SQ HS oxyCODONE-APAP 5-325MG [Percocet 5-325 mg] 1 tab PO TID tiZANidine [Zanaflex] 4 mg PO HS Tirzepatide [Mounjaro] 2.5 mg SQ TU Nystatin 100,000 Unit/gm Powd [Mycostatin Powder] 1 applic TOPICAL BID Metoprolol Succinate (ER) [Toprol XL] 50 mg PO DAILY metFORMIN HCL 1,000 mg PO BID Ezetimibe [Zetia] 10 mg PO HS Atorvastatin [Lipitor] 40 mg PO HS Ondansetron [Zofran] 4 mg PO Q8HR PRN 4 Days #10 tab PRN Reason: Nausea And Vomiting Insulin Aspart [NovoLOG Flexpen] 15 units SQ AC-TID Empagliflozin [Jardiance] 10 mg PO DAILY Insulin Aspart [NovoLOG Flexpen] See Protocol SQ AC-TID Prasugrel [Effient] 10 mg PO DAILY #90 tablet Levothyroxine Sodium 150 mcg PO DAILY Isosorbide Mononitrate ER [Imdur] 30 mg PO DAILY Fluticasone Nasal [place] [Flonase Nasal [place]] 2 spr EA NOSTRIL HS Ergocalciferol [Vitamin D2 (1250 Mcg = 62788 Iu)] 1,250 mcg PO TU Diclofenac Sodium Gel [Voltaren 1% Gel] 1 applic TOPICAL BID PRN PRN Reason: Pain Butalb/APAP/Caff 50-325-40Mg [Fioricet 50-325-40] 1 tab PO BID PRN PRN Reason: Pain Pantoprazole [Protonix] 40 mg PO DAILY Ferrous Sulfate [Iron (65 MG Elemental)] 325 mg PO DAILY Discontinued Losartan Potassium [Cozaar] 25 mg PO DAILY Furosemide [Lasix] 20 mg PO DAILY Spironolactone [Aldactone] 25 mg PO DAILY Discharge Medication List Montelukast [Singulair] 10 mg PO HS 04/16/17 [History] PARoxetine HCL [Paxil] 40 mg PO DAILY 12/27/18 [History] Insulin Aspart [NovoLOG Flexpen] 15 units SQ AC-TID 04/30/22 [History] Empagliflozin [Jardiance] 10 mg PO DAILY 01/13/23 [History] Insulin Aspart [NovoLOG Flexpen] See Protocol SQ AC-TID 01/13/23 [History] Insulin Glargine,Hum.rec.anlog [Lantus Solostar Pen] 50 units SQ HS 01/13/23 [History] oxyCODONE-APAP 5-325MG [Percocet 5-325 mg] 1 tab PO TID 01/13/23 [History] tiZANidine [Zanaflex] 4 mg PO HS 01/13/23 [History] Prasugrel [Effient] 10 mg PO DAILY #90 tablet 01/14/23 [Rx] Atorvastatin [Lipitor] 40 mg PO HS 01/14/24 [History] Butalb/APAP/Caff 50-325-40Mg [Fioricet 50-325-40] 1 tab PO BID PRN 01/14/24 [History] Diclofenac Sodium Gel [Voltaren 1% Gel] 1 applic TOPICAL BID PRN 01/14/24 [History] Ergocalciferol [Vitamin D2 (1250 Mcg = 50442 Iu)] 1,250 mcg PO TU 01/14/24 [History] Ezetimibe [Zetia] 10 mg PO HS 01/14/24 [History] Fluticasone Nasal [place] [Flonase Nasal [place]] 2 spr EA NOSTRIL HS 01/14/24 [History] Isosorbide Mononitrate ER [Imdur] 30 mg PO DAILY 01/14/24 [History] Levothyroxine Sodium 150 mcg PO DAILY 01/14/24 [History] Metoprolol Succinate (ER) [Toprol XL] 50 mg PO DAILY 01/14/24 [History] Nystatin 100,000 Unit/gm Powd [Mycostatin Powder] 1 applic TOPICAL BID 01/14/24 [History] Tirzepatide [Mounjaro] 2.5 mg SQ TU 01/14/24 [History] metFORMIN HCL 1,000 mg PO BID 01/14/24 [History] Ondansetron [Zofran] 4 mg PO Q8HR PRN 4 Days #10 tab 01/17/24 [Rx] Ferrous Sulfate [Iron (65 MG Elemental)] 325 mg PO DAILY 02/20/24 [History] Pantoprazole [Protonix] 40 mg PO DAILY 02/20/24 [History] Follow up Appointment(s)/Referral(s): Reilly Beck MD [STAFF PHYSICIAN] - 03/01/24 3:45 pm (appointment at the [place] office in front of [place]. ) Cuca Huston MD [Primary Care Provider] - 03/16/24 3:00 pm Jhonatan Appiah MD [STAFF PHYSICIAN] - 03/14/24 2:15 pm (Cardiothoracic surgeon - possible valve replacement. The office will be reaching out to obtain more information and history. ) Ambulatory/Diagnostic Orders: Basic Metabolic Panel [LAB.AMB] Time Frame: 3 Days, Location: None Selected Patient Instructions/Handouts: Hypotension (DC), Weakness (DC) Activity/Diet/Wound Care/Special Instructions: Follow up with your production control expediter Discharge Disposition: HOME SELF-CARE
== END 2024-02-22 16:30 | disposition home or self-care (01) ==
LOC: EC 15:15 → INTOOBSV 17:27 → 5NMEDONC 17:27
PROVIDERS: ADMIT Internal Medicine; ATTEND Internal Medicine
DX: I95.9 Hypotension, unspecified (principal); E87.1 Hypo-osmolality and hyponatremia; E86.1 Hypovolemia; I10 Essential (primary) hypertension; E11.65 Type 2 diabetes mellitus with hyperglycemia; J44.9 Chronic obstructive pulmonary disease, unspecified; E78.5 Hyperlipidemia, unspecified; F32.A Depression, unspecified; E11.40 Type 2 diabetes mellitus with diabetic neuropathy, unspecified; F41.0 Panic disorder [episodic paroxysmal anxiety]; Z11.52 Encounter for screening for COVID-19; Z86.73 Personal history of transient ischemic attack (TIA), and cerebral infarction without residual deficits; Z87.891 Personal history of nicotine dependence; Z95.5 Presence of coronary angioplasty implant and graft; Z79.899 Other long term (current) drug therapy; Z79.4 Long term (current) use of insulin; Z79.84 Long term (current) use of oral hypoglycemic drugs; Z79.890 Hormone replacement therapy; Z79.02 Long term (current) use of antithrombotics/antiplatelets; Z88.2 Allergy status to sulfonamides; Z88.1 Allergy status to other antibiotic agents; Z88.0 Allergy status to penicillin; Z88.5 Allergy status to narcotic agent
CPT/HCPCS: 96361 ×2; 96375; 96374; 99285; 36415; 94760; 93005; 80053; 80048; 82009; 83605; 83735; 84100; 84484; 85025; 85610; 85730; 81003; 87636; 71046; G0378 ×3; J2405

== ENCOUNTER → 2024-03-14 | Outpatient (CLI) | payer OTHER ==
--- NOTE | 2024-03-15 07:20 | US ---
EXAMINATION TYPE: US carotid duplex BILAT DATE OF EXAM: 03/14/2024 COMPARISON: 2014 CLINICAL INDICATION: Female, 54 years old with history of R55 SYNCOPE; TECHNIQUE: Carotid duplex ultrasound examination. Indirect Doppler criteria was utilized. FINDINGS: EXAM MEASUREMENTS: RIGHT: Peak Systolic Velocity (PSV) cm/sec ----- Right CCA: 55.7 ----- Right ICA: 110.9 ----- Right ECA: 68.6 ICA/CCA ratio: 2.0 RIGHT: End Diastole cm/sec ----- Right CCA: 13.0 ----- Right ICA: 25.0 ----- Right ECA: 6.5 LEFT: Peak Systolic Velocity (PSV) cm/sec ----- Left CCA: 75.2 ----- Left ICA: 87.1 ----- Left ECA: 71.3 ICA/CCA ratio: 1.2 LEFT: End Diastole cm/sec ----- Left CCA: 25.0 ----- Left ICA: 31.6 ----- Left ECA: 10.4 VERTEBRALS (direction of flow): Right Vertebral: Antegrade Left Vertebral: Antegrade Rhythm: Normal TECHNICAL ADMINISTRATOR NOTES: Mild plaque noted bilateral carotid bulbs. IMPRESSION: Minimal plaquing present bilaterally without significant flow limiting stenosis Criteria for Assigning % of Stenosis / Diameter reduction (Estimation based on the indirect measurements of the internal carotid artery velocities (ICA PSV). 1. Normal (no stenosis)=ICA PSV < 125 cm/s: ratio < 2.0: ICA EDV<40 cm/s. 2. Less than 50% stenosis=ICA PSV < 125 cm/s: ratio < 2.0: ICA EDV<40 cm/s. 3. 50 to 69% stenosis=ICA PSV of 125 to 230 cm/s: ration 2.0 ? 4.0: ICA EDV 40-100 cm/s. 4. Greater than 70% stenosis to near occlusion= ICA PSV > 230 cm/s: ratio > 4.0: ICA EDV > 100 cm/s. 5. Near occlusion= ICA PSV velocities may be low or undetectable: variable ratio and ICA EDV. 6. Total occlusion=unable to detect flow.
== END | disposition home or self-care (01) ==
LOC: RADUSWWP 14:04
PROVIDERS: ATTEND Thoracic Surgery (Cardiothoracic Vascular Surgery)
DX: I71.20 Thoracic aortic aneurysm, without rupture, unspecified (principal); R55 Syncope and collapse
CPT/HCPCS: 93880

== ENCOUNTER → 2024-03-15 | Outpatient (CLI) | payer OTHER | LOC: CPPFTMAIN 09:17 | PROVIDERS: ATTEND Internal Medicine Pulmonary Disease | DX: J45.909 Unspecified asthma, uncomplicated (principal); E66.9 Obesity, unspecified; G47.33 Obstructive sleep apnea (adult) (pediatric); Z91.048 Other nonmedicinal substance allergy status; Z91.041 Radiographic dye allergy status; Z88.2 Allergy status to sulfonamides; Z88.8 Allergy status to other drugs, medicaments and biological substances; Z88.0 Allergy status to penicillin; Z88.5 Allergy status to narcotic agent; Z88.1 Allergy status to other antibiotic agents; Z79.51 Long term (current) use of inhaled steroids | CPT/HCPCS: 94060; 94726; 94729 ==

== ENCOUNTER → 2024-03-17 | Outpatient (CLI) | payer OTHER ==
[2024-03-17 14:12] LABS: African American GFR (CKD) 84 (>60 ml/min/1.73 sqM); Blood Urea Nitrogen 16 mg/dL (7-17); Non-African American GFR(CKD) 73 (>60 ml/min/1.73 sqM)
--- NOTE | 2024-03-17 15:42 | CT ---
EXAMINATION TYPE: CT angio chest, without and with contrast DATE OF EXAM: 03/17/2024 COMPARISON: 01/31/2019 HISTORY: 54-year-old female I71.20 Thoracic aortic aneurysm w/o rupture TECHNIQUE: Contiguous axial scanning of the chest before and after the administration of 100 mL of Is ovue 370. Coronal/sagittal reconstructions performed. 3-D reconstructions generated on a dedicated ReplySend workstation. CT DLP: 978mGycm. Automatic exposure control utilized for a dose reduction. FINDINGS: Heart is normal size without pericardial effusion. Dense mitral annular calcifications. Moderate aort ic valvular calcifications also present. Extensive three-vessel coronary artery calcifications. Borderline ectatic aortic root at 3.5 cm is unchanged. Ectatic ascending aorta 3.8 cm is unchanged. Bovine configuration to the aortic arch. Initial noncontrast images show no evidence for acute intramural hematoma. No evidence for aortic dis section. Scattered mild atherosclerotic calcifications are present throughout. No thoracic lymphadenopathy by CT size criteria. Lungs show no consolidation or pleural effusion. Visualized upper abdomen shows cholecystectomy clips. Bones: Mild degenerative disc disease mid and lower thoracic spine. IMPRESSION: 1. Similar borderline ectatic aortic root at 3.5 cm and ectatic ascending aorta at 3.8 cm. No teresa a neurysm seen at this time. 2. Extensive three-vessel coronary artery calcifications. 3. Dense mitral annular calcifications. Moderate aortic valvular calcifications. Consider further ass essment with cardiac echo if concern for aortic valve pathology.
== END | disposition home or self-care (01) ==
LOC: RADCTMAIN 13:29
PROVIDERS: ATTEND Thoracic Surgery (Cardiothoracic Vascular Surgery)
DX: I77.810 Thoracic aortic ectasia (principal); I25.10 Atherosclerotic heart disease of native coronary artery without angina pectoris; I34.81 Nonrheumatic mitral (valve) annulus calcification; I35.8 Other nonrheumatic aortic valve disorders
CPT/HCPCS: 82565; 84520; 71275; 36415; Q9967

== ENCOUNTER 2024-03-31 07:42 | Day surgery (SDC) | payer OTHER ==
[2024-03-31] MEDS ORDERED: SODIUM CHLORIDE 0.9% 500 ML 500 ML IV SCH (07:45)
[2024-03-31] MEDS: IV FLUID CONTINUATION 1,000 ML IV ONE (08:15)
[2024-03-31 08:23] LABS: Glucose,Whole Blood 116 mg/dL (70-110)
[2024-03-31] MEDS ORDERED: fentaNYL (PF) 50 MCG/ML 2 ML AMP ONE (09:41)
[2024-03-31 09:50] VITALS: PULSE 84; TEMP 98.5
[2024-03-31] MEDS: MIDAZOLAM 2 MG/2 ML VIAL IVP ONE ×2 (10:06→10:12)
[2024-03-31] MEDS: BENZOCAINE SPRAY 1 CAN TOPICAL ONE (10:06)
[2024-03-31] MEDS: fentaNYL (PF) 50 MCG/ML 2 ML AMP IVP ONE (10:10)
[2024-03-31 11:06] VITALS: RESP 16
--- NOTE | 2024-03-31 11:29 | P.PCN ---
Date of Procedure: 03/31/24 Operative Findings: TRANSESOPHAGEAL ECHOCARDIOGRAM LEGAL TRANSCRIBER: ROBERT BOUCHER MD, RPVI INDICATION: Aortic stenosis SEDATION: Conscious sedation COMPLICATION: None LEVEL OF SEDATION Moderate with sedation length of 12 minutes PROCEDURE DESCRIPTION: After obtaining an informed consent, the patient was brought to transesophageal echocardiogram room. Pulse oximetry and heart monitors were attached to the patient. The patient throat was sprayed using lidocaine. The patient was turned into left lateral position. After that a bite guard was placed. After an appropriate conscious sedation was initiated, the transesophageal echocardiogram was advanced through a bite guard into the mid esophagus. A 2-D echocardiogram images, color Doppler images, continuous wave images, pulse-wave images, of various cardiac structure were performed. After that the transesophageal echocardiogram probe was advanced into the stomach and fixed to obtain transgastric view was. The probe was brought into the mid esophagus. Inter-atrial septum was interrogated using 2D images, color Doppler images, and then contrast study. After that transesophageal echocardiogram was withdrawn out and upon withdrawing the descending thoracic aorta all the way up to the arch was evaluated. CONCLUSION: 1. Bicuspid aortic valve [place] type I with fusion of the right and left coronary cusps and evidence of severe aortic stenosis with a mean gradient of 40 mmHg and aortic valve area of 0.7 cm and mild aortic insufficiency 2. Mildly dilated ascending aorta 3. Normal biventricular dimension and systolic function 4. Normal/intact left atrial appendage 5. Mildly thickened mitral valve leaflets with mild mitral regurgitation 6. Normal tricuspid valve and pulmonic valve
[2024-03-31 13:02] VITALS: BP 122/68
== END 2024-03-31 12:10 | disposition home or self-care (01) ==
LOC: CATHCVL 07:42
PROVIDERS: ATTEND Internal Medicine Interventional Cardiology
DX: I08.0 Rheumatic disorders of both mitral and aortic valves (principal); E11.9 Type 2 diabetes mellitus without complications; I25.10 Atherosclerotic heart disease of native coronary artery without angina pectoris; Z79.84 Long term (current) use of oral hypoglycemic drugs; Z79.899 Other long term (current) drug therapy; Z98.61 Coronary angioplasty status
CPT/HCPCS: 93312; 93320; 93325; 99152; J2250; J3010

== ENCOUNTER → 2024-05-24 | Outpatient (CLI) | payer OTHER ==
[2024-05-24 09:18] LABS: Partial Thromboplastin Time 26.3 sec (22.0-30.0); Prothrombin Time 10.8 sec (10.0-12.5)
--- NOTE | 2024-05-24 11:34 | US ---
EXAMINATION TYPE: US arterial LE single level DATE OF EXAM: 05/24/2024 10:55 AM CLINICAL INDICATION: Female, 54 years old with history of OPEN HEART; Pre op cardiac surgery History of: Smoker: Previous Hypertension: Yes Diabetic: Yes Hyperlipidemia: Yes TIA/CVA: TIA - couple years ago Doppler Waveforms: Right: Multiphasic Left: Multiphasic Right Brachial Pressure: 135 Left Brachial Pressure: 129 Ankle-Brachial Indices: Right: 1.13 Left: 1.02 (Vessel hardening > 1.4; Normal 0.9 - 1.4, Moderate 0.7 - 0.9, Severe 0.5-0.7) IMPRESSION: No significant flow-limiting stenosis based on waveforms, ratios and velocities. [facility], , 05/24/2024 11:31 AM
--- NOTE | 2024-05-24 11:37 | US ---
EXAMINATION TYPE: US vein mapping BILAT DATE OF EXAM: 05/24/2024 11:11 AM COMPARISON: NONE CLINICAL INDICATION: Female, 54 years old with history of OPEN HEART; Pre op cardiac surgery SIDE PERFORMED: Bilateral TECHNIQUE: Lower extremity saphenous vein is examined and measured utilizing real time linear array sonography. DUPLEX FINDINGS: Greater Saphenous: Color flow seen Lesser Saphenous: Color flow seen Measurements in mm: Right Greater Saphenous: Groin: 5.4 x 4.8 mm High Thigh: 5.1 x 4.0 mm Mid Thigh: 3.4 x 3.1 mm Above Knee: 4.0 x 3.0 mm Knee: 4.0 x 3.4 mm Below Knee: 2.2 x 2.1 mm Mid Calf: 2.8 x 2.3 mm At Ankle: 2.1 x 2.0 mm Left Greater Saphenous: Groin: 6.2 x 5.3 mm High Thigh: 8.6 x 6.2 mm Mid Thigh: 5.6 x 3.9 mm Above Knee: 3.5 x 3.1 mm Knee: 4.0 x 3.4 mm Below Knee: 3.6 x 2.9 mm Mid Calf: 3.2 x 2.7 mm At Ankle: 2.6 x 2.3 mm IMPRESSION: 1. Bilateral GSV measurements listed above. 2. Performing surgeon to determine viability as conduit. [facility], , 05/24/2024 11:34 AM
--- NOTE | 2024-05-24 11:39 | XR ---
EXAMINATION TYPE: XR chest 2V DATE OF EXAM: 05/24/2024 COMPARISON: 02/20/2024 INDICATION: Open heart surgery presurgical clearance TECHNIQUE: Frontal and lateral views of the chest are obtained. FINDINGS: The heart size is normal. Aortic arch is on the left. The pulmonary vasculature is normal. The lungs are clear. IMPRESSION: 1. No acute pulmonary process. [facility], , 05/24/2024 11:37 AM
[2024-05-24 15:33] LABS: HCT 44.4 % (37.2-46.3); HGB 14.3 g/dL (12.0-15.0); MCH 26.8 pg (27.0-32.0); MCHC 32.2 g/dL (32.0-37.0); MCV 83.1 FL (80.0-97.0); Mean Platelet Volume 9.8 FL (9.5-12.2); NRBC Per 100 WBC 0 X 10*3/uL (0.00-0.01); Platelet Count 221 X 10*3/uL (140-440); RBC 5.34 X 10*6/uL (4.10-5.20); RDW 16.3 % (11.5-14.5); WBC 7.06 X 10*3/uL (4.50-10.00)
[2024-05-24 15:49] LABS: ALT 33 U/L (8-44); AST 26 U/L (13-35); Albumin 4.2 g/dL (3.8-4.9); Alkaline Phosphatase 98 U/L (41-126); BUN/Creat Ratio 19.22 Ratio (12.00-20.00); Blood Urea Nitrogen 17.3 mg/dL (9.0-27.0); Calcium 9.5 mg/dL (8.7-10.3); Carbon Dioxide 19.2 mmol/L (21.6-31.8); Chloride 105 mmol/L (96-109); Chol/HDL Ratio 8.78 Ratio; Glucose 200 mg/dL (70-110); Sodium 138 mmol/L (135-145); Total Bilirubin 0.3 mg/dL (0.3-1.2); Total Protein 7.2 g/dL (6.2-8.2)
[2024-05-24 16:02] LABS: Hepatitis A Antibody IgM Nonreactive (Nonreactive); Hepatitis B Core IgM Nonreactive (Nonreactive); Hepatitis B Surface Antigen Nonreactive (Nonreactive); Hepatitis C IgG Antibody Nonreactive (Nonreactive)
[2024-05-24 17:04] LABS: Appearance,Urine Cloudy (Clear); Bilirubin,Urine Negative (Negative); Blood,Urine Negative (Negative); Color,Urine Yellow (Yellow); Ketones,Urine Negative (Negative); Nitrite,Urine Negative (Negative); PH, Urine 5.5; Specific Gravity,Urine 1.027 (1.001-1.030); Urobilinogen,Urine 0.2 E.U./DL
[2024-05-24 18:10] LABS: Bacteria,Urine 3+ (None Seen); Yeast (UA) Present (None Seen)
--- NOTE | 2024-05-26 14:14 | P.PN ---
Progress Note - Text Progress Note Date: 05/24/24 5 meter walk test completed without difficulty: #1 4.13 sec #2 4.07 sec #3 4.35 sec Patient tolerated without difficulty Clinical frailty score 4 STS risk score calculated and discussed with the patient
== END | disposition home or self-care (01) ==
LOC: LABWHC1 08:33
PROVIDERS: ATTEND Surgery
DX: I35.0 Nonrheumatic aortic (valve) stenosis (principal); I25.10 Atherosclerotic heart disease of native coronary artery without angina pectoris
CPT/HCPCS: 36415; 71046; 80053; 80061; 80074; 81001; 83036; 83735; 84443; 85027; 85610; 85730; 86850; 86900; 86901; 86920; 87070; 87077; 87086; 87186; 93005; 93922; 93970

== ENCOUNTER 2024-05-30 05:35 | Inpatient (IN) | payer OTHER ==
[~2024-05-30 05:35] MED LIST changes: +DEXTROSE IV ONE; +ELECTROLYTE-A SOLUTION 1,000 ML with POTASSIUM CHLORIDE 100 MEQ, MAGNESIUM SULFATE 16 M... IV SCH; +ELECTROLYTE-A SOLUTION 1,000 ML with POTASSIUM CHLORIDE 40 MEQ, MAGNESIUM SULFATE 16 ME... IV SCH; +MANNITOL 25% 50 ML IV SCH; +NITROGLYCERIN D5W PMX IV ONE; +NITROGLYCERIN SL TABS 0.4 MG TAB SUBLINGUAL PRN; +SODIUM BICARB 8.4% 50 ML VIAL (1 MEQ/ML) IV ONE; +SODIUM CHLORIDE 0.9% 1,000 ML IV SCH; -TETRACAINE 0.5% OPHTH (PF) DROPS 4 ML BTL OP PRN; +VANCOMYCIN 1,000 MG in SODIUM CHLORIDE 0.9% IRRIGATIO 1,000 ML IVPB ONE; +WATER IV ONE
[2024-05-30] MEDS: IV FLUID CONTINUATION 1,000 ML IV ONE (05:58)
[2024-05-30 06:29] LABS: Glucose,Whole Blood 170 mg/dL (70-110)
[2024-05-30] MEDS: LACTATED RINGERS 1,000 ML IV SCH (06:44)
[2024-05-30] MEDS: ASPIRIN 325 MG TAB PO ONE (06:45)
[2024-05-30] MEDS: ATORVASTATIN 10 MG TAB PO ONE (06:45)
[2024-05-30] MEDS: METOPROLOL TARTRATE 12.5 MG TAB PO ONE (06:45)
[2024-05-30] MEDS ORDERED: PHENYLEPHRINE 10 MG/ML VIAL ONE (07:40)
[2024-05-30] MEDS ORDERED: LIDOCAINE 2% SYG (PF) 100 MG/5 ML ONE (07:40)
[2024-05-30] MEDS ORDERED: MIDAZOLAM HCL 10 MG/10 ML VIAL ONE (07:40)
[2024-05-30] MEDS ORDERED: NITROGLYCERIN-D5W PMX 50 MG/250 ML BOTTLE IV ONE (07:40)
[2024-05-30] MEDS ORDERED: fentaNYL (PF) 50 MCG/ML 50 ML VIAL ONE (07:40)
[2024-05-30] MEDS ORDERED: INSULIN REGULAR 100 UNIT/ML VIAL (IV) ONE (07:40)
[2024-05-30] MEDS ORDERED: ePHEDrine 50 MG/ML 1 ML VIAL ONE (07:40)
[2024-05-30] MEDS ORDERED: SUCCINYLCHOLINE CHLORIDE 200 MG/10 ML VIAL IV ONE (07:40)
[2024-05-30] MEDS ORDERED: ALBUMIN HUMAN 5% (25gm) 500 ML VIAL IVPB ONE (07:40)
[2024-05-30] MEDS ORDERED: PROPOFOL 10 MG/ML 20 ML VIAL IV ONE (07:40)
[2024-05-30] MEDS ORDERED: PROTAMINE SULFATE 10 MG/ML 25 ML VIAL IV ONE (07:40)
[2024-05-30] MEDS ORDERED: VECURONIUM 10 MG VIAL IV ONE (07:40)
[2024-05-30] MEDS ORDERED: TRANEXAMIC 1,000 MG/100ML-NACL PREMIX BAG ONE (07:40)
[2024-05-30 08:29] LABS: ABG Glucose Whole Blood 171 mg/dL (75-99); ABG Hematocrit 40 % (34.0-46.0); ABG Ionized Calcium 4.9 mg/dL (4.5-5.3); ABG Lactic Acid Whole Blood 1.2 mmol/L (0.5-1.6); ABG PH 7.28 (7.35-7.45); ABG PO2 243 mmHg (83-108); ABG Potassium Whole Blood 3.9 mmol/L (3.4-4.5); ABG Sodium Whole Blood 140 mmol/L (135-146)
[2024-05-30 08:52] LABS: ABG PCO2 49 mmHg (35-45)
[2024-05-30 08:53] LABS: ABG HCO3 23 mmol/L (21-25); ABG TCO2 21 mmol/L (19-24)
[2024-05-30] MEDS: VANCOMYCIN 1,000 MG in SODIUM CHLORIDE 0.9% IRRIGATIO 1,000 ML IRRIGATION ONE (09:19)
[2024-05-30] MEDS: SODIUM CHLORIDE 0.9% 500 ML 500 ML with HEPARIN SODIUM,PORCINE (1 ML) 5,000 UNIT IV ONE (09:19)
[2024-05-30] MEDS: PAPAVERINE 360 MG in SODIUM CHLORIDE 0.9% 90 ML IV ONE (09:19)
[2024-05-30 10:22] LABS: ABG Glucose Whole Blood 140 mg/dL (75-99); ABG Hematocrit 31 % (34.0-46.0); ABG Ionized Calcium 4.5 mg/dL (4.5-5.3); ABG Lactic Acid Whole Blood 1.6 mmol/L (0.5-1.6); ABG Oxygen Saturation 98.6 % (94-97); ABG PH 7.35 (7.35-7.45); ABG PO2 131 mmHg (83-108); ABG Potassium Whole Blood 3.2 mmol/L (3.4-4.5); ABG Sodium Whole Blood 141 mmol/L (135-146)
[2024-05-30 10:55] LABS: ABG Glucose Whole Blood 136 mg/dL (75-99); ABG Ionized Calcium 3.8 mg/dL (4.5-5.3); ABG Lactic Acid Whole Blood 1.5 mmol/L (0.5-1.6); ABG Oxygen Saturation >99.4 % (94-97); ABG PH 7.41 (7.35-7.45); ABG PO2 387 mmHg (83-108); ABG Potassium Whole Blood 3.1 mmol/L (3.4-4.5); ABG Sodium Whole Blood 138 mmol/L (135-146)
--- NOTE | 2024-05-30 11:06 | P.ANPRN ---
Procedure Note - Anesthesia - Invasive Line Right Central Line Time Out Performed: Yes (07) Date of Procedure: 05/30/24 Time of Procedure: 07:21 Location of Patient: Phase I Preparation: Sterile Prep, Sterile Dressing Central Line Location: Internal Jugular (right IJ Cordis) Ultrasound Used: Yes Purpose - Visualization and Identification of Vasculature: Yes Needle Guage: 18g angio Image Stored and Saved: Yes Narrative: Invasive line placement per sterile protocol utilized. Anesthesia note Procedure: Right internal jugular central venous catheter insertion: 8.5-[place] Cordis Sterile protocol followed. Right neck prepped. Ultrasound used. Lidocaine 1% used. Using ultrasound local anesthetic was instilled site over right Internal Jugular vein. Angiocath was used to gain access via ultrasound. Once free flow non-pulsatile blood flow was confirmed, 12 inch extension tubing was then placed on Angiocath. Once central venous pressure was confirmed, J-wire was then placed through Angiocath. Angiocath was then withdrawn. Local was instilled at J-wire site. Small skin ena was then made with provided sterile scalpel. 8.5- [place] Cordis was then inserted over the wire while maintaining control of wire at all times. Uneventful insertion with dilation. Free flow nonpulsatile blood flow through Cordis. Hooked up to IV tubing. Secured with suture. Dressings applied. Drapes Removed. Attempts x1.
--- NOTE | 2024-05-30 11:07 | P.ANPRN ---
Procedure Note - Anesthesia - Invasive Line Right [place] Gypsy Time Out Performed: Yes (0720) Date of Procedure: 05/30/24 Time of Procedure: 07:33 Location of Patient: Phase I Preparation: Sterile Prep, Sterile Dressing [place] Line Location: Internal Jugular (right) Ultrasound Used: No Purpose - Visualization and Identification of Vasculature: No Image Stored and Saved: No Narrative: Invasive line placement per sterile protocol utilized. Anesthesia note Procedure right [place]Gypsy catheter placed through right internal jugular central venous catheter Sterile protocol maintained from previous procedure. [place] catheter sterilely placed in sheath and flushed prior to insertion. After advancing 15 cm [place]Gy[place] catheter was then slowly inserted with balloon up. Advanced through CVP, RV to PA waveform. [place] catheter wedged around 48cm. Balloon down. Catheter withdrawn 5 cm. . No wedge. Proximal and distal sites locked on sheath. Attempts x1. Sterile drapes removed and dressings applied.
--- NOTE | 2024-05-30 11:10 | P.ANPRN ---
Procedure Note - Anesthesia - IKER Intraop Pre Bypass IKER Intraop - Anesthesia Indication: Aortic Stenosis/CAD Date of Procedure: 05/30/24 Pre-operative Diagnosis: Aortic Stenosis/CAD Post-operative Diagnosis: Aortic Stenosis/CAD Surgeon: Carlee Arroyo Left Ventricle: mod lvh Ejection Fraction: Normal Regional Wall Motion Abnormalities: None Left Ventricle Hypertrophy: Yes (mod) R. Ventricle Function: Normal Aortic Valve: bicuspid/ BETTE 0.5cm2 peak gradient high 30s Aortic Stenosis: Severe Aortic Regurgitation: Trace Mitral Stenosis: None Mitral Regurgitation: Trace Tricuspid Stenosis: None Tricuspid Regurgitation: None Pulmonic Stenosis: None Pulmonic Regurgitation: None R. Atrial Dilation: No R. Atrial PFO: No L. Atrial Dilation: No Aortic Dissection: No Aortic Calcification: None Plural Effusion: None
[2024-05-30 11:29] LABS: ABG Glucose Whole Blood 168 mg/dL (75-99); ABG Ionized Calcium 4.1 mg/dL (4.5-5.3); ABG Lactic Acid Whole Blood 1.6 mmol/L (0.5-1.6); ABG Oxygen Saturation 99.2 % (94-97); ABG PH 7.36 (7.35-7.45); ABG PO2 264 mmHg (83-108); ABG Potassium Whole Blood 4.2 mmol/L (3.4-4.5); ABG Sodium Whole Blood 139 mmol/L (135-146)
[2024-05-30 12:02] LABS: ABG Glucose Whole Blood 175 mg/dL (75-99); ABG Hematocrit 25 % (34.0-46.0); ABG Ionized Calcium 4.1 mg/dL (4.5-5.3); ABG Oxygen Saturation >99.4 % (94-97); ABG PH 7.41 (7.35-7.45); ABG PO2 369 mmHg (83-108); ABG Potassium Whole Blood 4.2 mmol/L (3.4-4.5); ABG Sodium Whole Blood 139 mmol/L (135-146)
[2024-05-30 12:30] LABS: ABG Glucose Whole Blood 172 mg/dL (75-99); ABG Ionized Calcium 4.1 mg/dL (4.5-5.3); ABG Lactic Acid Whole Blood 1.7 mmol/L (0.5-1.6); ABG Oxygen Saturation 98.7 % (94-97); ABG PH 7.37 (7.35-7.45); ABG PO2 267 mmHg (83-108); ABG Potassium Whole Blood 4.4 mmol/L (3.4-4.5); ABG Sodium Whole Blood 140 mmol/L (135-146)
[2024-05-30] MEDS ORDERED: VANCOMYCIN 1,500 MG in SODIUM CHLORIDE 0.9% 500 ML 500 ML IVPB ONE (13:00)
[2024-05-30 13:17] LABS: ABG HCO3 20 mmol/L (21-25); ABG PCO2 36 mmHg (35-45); ABG TCO2 19 mmol/L (19-24)
[2024-05-30 13:18] LABS: ABG HCO3 24 mmol/L (21-25); ABG Hematocrit 24 % (34.0-46.0); ABG PCO2 38 mmHg (35-45)
[2024-05-30 13:19] LABS: ABG Base Excess -1.3 mmol/L; ABG HCO3 24 mmol/L (21-25); ABG PCO2 43 mmHg (35-45); ABG TCO2 23 mmol/L (19-24)
[2024-05-30 13:20] LABS: ABG Hematocrit 24 % (34.0-46.0)
[2024-05-30 13:22] LABS: ABG Glucose Whole Blood 150 mg/dL (75-99); ABG Hematocrit 32 % (34.0-46.0); ABG Ionized Calcium 4.8 mg/dL (4.5-5.3); ABG Oxygen Saturation 99.1 % (94-97); ABG PH 7.39 (7.35-7.45); ABG PO2 271 mmHg (83-108); ABG Potassium Whole Blood 3.9 mmol/L (3.4-4.5); ABG Sodium Whole Blood 140 mmol/L (135-146)
--- NOTE | 2024-05-30 13:22 | P.ANPRN ---
Procedure Note - Anesthesia - IKER Intraop Post Bypass IKER Intraop Post Bypass Procedure Performed: AVR, LOGAN to LAD Left Ventricle: unchanged Ejection Fraction: Normal Regional Wall Motion Abnormalities: None R. Ventricle Function: Normal Aortic Valve: s/p avr. No perivalvular leak, no insufficiency. Residual mean 5.5. Mitral Valve: Unchanged Tricuspid: Unchanged Pulmonic: Unchanged Aortic Dissection: No
[2024-05-30 13:27] LABS: ABG Base Excess -1.2 mmol/L; ABG HCO3 23 mmol/L (21-25); ABG PCO2 37 mmHg (35-45)
[2024-05-30 13:29] LABS: ABG Base Excess -2.3 mmol/L; ABG HCO3 23 mmol/L (21-25); ABG Hematocrit 23 % (34.0-46.0); ABG PCO2 39 mmHg (35-45); ABG TCO2 22 mmol/L (19-24)
[2024-05-30 13:30] LABS: ABG Base Excess -3.4 mmol/L; ABG HCO3 21 mmol/L (21-25); ABG PCO2 35 mmHg (35-45); ABG TCO2 20 mmol/L (19-24)
[2024-05-30 13:31] LABS: ABG Lactic Acid Whole Blood 2.4 mmol/L (0.5-1.6)
[2024-05-30] MEDS ORDERED: Potassium Replacement Protocol 1 EACH MISC MISCELLANE PRN (13:39)
[2024-05-30] MEDS ORDERED: BENZOCAINE/MENTHOL LOZENG 1 EACH LOZENGE MUCOUS MEM PRN (13:39)
[2024-05-30] MEDS ORDERED: hydrALAZINE HCL 20 MG/ML 1 ML VIAL IVP PRN (13:39)
[2024-05-30] MEDS ORDERED: METOCLOPRAMIDE 5 MG/ML 2 ML VIAL IVP PRN (13:39)
[2024-05-30] MEDS ORDERED: DEXMEDETOMIDINE/0.9% NACL(PMX) 400 MCG in EMPTY BAG 1 BAG IV SCH (13:39)
[2024-05-30] MEDS ORDERED: DEXTROSE 50% SYRINGE 50 ML IVP PRN ×2 (13:39)
[2024-05-30] MEDS ORDERED: MORPHINE SULFATE 2 MG/ML SYRINGE IVP PRN (13:39)
[2024-05-30] MEDS ORDERED: VANCOMYCIN IV PER PHARMACY 1 EACH MISC MISCELLANE PRN (13:39)
[2024-05-30] MEDS ORDERED: Magnesium Replacement Protocol 1 EACH MISC MISCELLANE PRN (13:39)
[2024-05-30] MEDS ORDERED: CALCIUM GLUCONATE IN NACL 2 GM in SALINE 1 100ML.BAG IVPB PRN (13:39)
[2024-05-30] MEDS: IPRATROPIUM-ALBUTEROL 3 ML NEB INHALATION SCH ×2 (13:58→20:09)
[2024-05-30 14:02] LABS: Appearance,Urine Clear (Clear); Bilirubin,Urine Negative (Negative); Blood,Urine Negative (Negative); Color,Urine Light Yellow; Glucose,Urine (UA) 4+ (Negative); Ketones,Urine Negative (Negative); Leukocyte Esterase,Urine Negative (Negative); Nitrite,Urine Negative (Negative); PH, Urine 5.5 (5.0-8.0); Protein,Urine Trace (Negative); Specific Gravity,Urine 1.025 (1.001-1.035); Urobilinogen,Urine <2.0 mg/dL (<2.0)
[2024-05-30] MEDS: NITROGLYCERIN-D5W PMX 50 MG in DEXTROSE/WATER 1 250ML.BAG IV SCH (14:20)
[2024-05-30] MEDS ORDERED: DEXTROSE 5% IN WATER 100 ML with AMIODARONE 150 MG IV PRN (14:20)
[2024-05-30 14:21] LABS: Glucose,Whole Blood 132 mg/dL (70-110)
[2024-05-30] MEDS: SODIUM CHLORIDE 0.9% 1,000 ML IV SCH (14:21)
[2024-05-30] MEDS: INSULIN REGULAR 100 UNIT in SODIUM CHLORIDE 0.9% 100 ML IV SCH (14:22)
[2024-05-30 14:40] LABS: Basophils % (A) 0 %; Eosinophils % (A) 1 %; HCT 31.7 % (34.0-46.0); HGB 10.4 gm/dL (11.4-16.0); Lymphocytes # (A) 0.6 k/uL (1.0-4.8); Lymphocytes % (A) 7 %; MCH 27.8 pg (25.0-35.0); MCHC 32.9 g/dL (31.0-37.0); MCV 84.3 fL (80.0-100.0); Mean Platelet Volume 7.1; Monocytes # (A) 0.4 k/uL (0-1.0); Monocytes % (A) 4 %; Neutrophils # (A) 8.1 k/uL (1.3-7.7); Neutrophils % (A) 88 %; Platelet Count 108 k/uL (150-450); RBC 3.76 m/uL (3.80-5.40); RDW 15.8 % (11.5-15.5); WBC 9.1 k/uL (3.8-10.6)
[2024-05-30 14:45] LABS: ABG Base Excess -4.4 mmol/L; ABG HCO3 23 mmol/L (21-25); ABG PCO2 53 mmHg (35-45); ABG PH 7.25 (7.35-7.45); ABG PO2 318 mmHg (83-108); ABG TCO2 25 mmol/L (19-24)
[2024-05-30 14:47] LABS: Allen Test Performed? no
[2024-05-30] MEDS: AMIODARONE 360 MG in DEXTROSE 5% IN WATER 200 ML IV ONE (14:51)
[2024-05-30 14:53] LABS: INR 1.1 (<1.2); Partial Thromboplastin Time 29.7 sec (22.0-30.0); Prothrombin Time 12.2 sec (10.0-12.5)
--- NOTE | 2024-05-30 14:54 | XR ---
EXAMINATION TYPE: XR chest 1V portable DATE OF EXAM: 05/30/2024 COMPARISON: 05/24/2024 INDICATION: Postop cardiac surgery TECHNIQUE: Single frontal view of the chest is obtained. FINDINGS: The heart size is normal. The pulmonary vasculature is normal. No suspicious infiltrate present. Some mild atelectasis may be along perihilar region. [place]-Gy[place] catheter tip is in the region of the main pulmonary artery. Endotracheal tube tip is 1.0 cm above the huyen and could be pulled back 1 to 2 cm. Nasogastric tube transverses the thorax with ti p in the left upper quadrant of the abdomen. Mediastinal tube is present. Left-sided chest tubes at t he lung base. IMPRESSION: 1. Suggestion of mild perihilar increased lung markings. 2. Endotracheal tube tip 1 cm above the huyen. This could be pulled back 1 to 2 cm. 3. Additional lines and catheters discussed above. [facility], , 05/30/2024 2:52 PM
[2024-05-30 14:59] LABS: ALT 19 U/L (4-34); African American GFR (CKD) >90 (>60 ml/min/1.73 sqM); Albumin 3.3 g/dL (3.5-5.0); Anion Gap 7 mmol/L; Blood Urea Nitrogen 16 mg/dL (7-17); Calcium 8.6 mg/dL (8.4-10.2); Carbon Dioxide 21 mmol/L (22-30); Chloride 110 mmol/L (98-107); Glucose 126 mg/dL (74-99); Non-African American GFR(CKD) >90 (>60 ml/min/1.73 sqM); Sodium 138 mmol/L (137-145); Total Bilirubin 1.5 mg/dL (0.2-1.3); Total Protein 5.3 g/dL (6.3-8.2)
[2024-05-30 15:00] LABS: AST 66 U/L (14-36); Alkaline Phosphatase 31 U/L (38-126); Magnesium 2.4 mg/dL (1.6-2.3)
[2024-05-30] MEDS: SODIUM BICARB 8.4% 50 ML SYR (1 MEQ/ML) IV STA (15:01)
[2024-05-30] MEDS: HEPARIN SODIUM,PORCINE 5,000 UNIT/ML 1 ML VIAL SQ SCH (15:02)
[2024-05-30 15:22] LABS: Glucose,Whole Blood 139 mg/dL (70-110)
--- NOTE | 2024-05-30 15:49 | P.CNPUL ---
History of Present Illness Consult date: 05/30/24 Chief complaint: Postthoracotomy History of present illness: This is a 54-year-old female patient was being seen in the intensive care unit following her cardiac surgery. Patient underwent a aortic valve replacement as the patient was found to have severe aortic stenosis with a bicuspid aortic valve and the patient underwent a single-vessel bypass surgery. Her cardiac catheterization was done on 10/06/2023 and the patient has 50% stenosis of the LAD. Echocardiogram revealed bicuspid aortic valve with a preserved LV function with an ejection fraction of 55 to 60%. At this point in time, the patient is sedated on propofol and the patient is calm and comfortable. Intubated on mechanical ventilator. She is on assist-control mode of mechanical ventilation at rate of 14, tidal volume of 350, FiO2 of 100% and a PEEP of 10. The patient has 3 different chest tubes in place, mediastinal and left pleural. The chest x-ray shows no evidence of any pneumothorax. ET tube is in a good location. No significant atelectatic changes. There are some increased perihilar pulmonary vascular markings. No evidence of any pneumothorax. Hemodynamically stable. Cardiac output is at 4.7 with an index of 2.4 and the PA pressure 29/17 with a CVP of 9. Cardiac rhythm is sinus. Adequate urine output. No other significant events reported postop. WBC was at 9.1 with hemoglobin 10.7 and a platelet count of 102. Blood gas showed a pH of 7.25 with a pCO2 of 53 and pO2 of 318. The BUN is 16 with a creatinine of 0.6 and a sodium levels at 138 and a bicarb level is at 21 with a potassium level of 4.0 Review of Systems ROS unobtainable: due to endotracheal tube Past Medical History Past Medical History: Asthma, Chest Pain / Angina, COPD, CVA/TIA, Diabetes M ellitus, GERD/Reflux, Hyperlipidemia, Hypertension, Osteoarthritis (OA), Renal Disease, Sleep Apnea/CPAP/BIPAP Additional Past Medical History / Comment(s): vonnie.neuropathy feet, bleeds easily, hx. of anemia, TIA's couple years ago-minor droop right side of mouth & right eye, uses CPAP, stage 1 kidney disease, bulging lumbar discs, disc problem in thoracic area History of Any Multi-Drug Resistant Organisms: None Reported Past Surgical History: Adenoidectomy, Cholecystectomy, Heart Catheterization, Heart Catheterization With Stent, Tonsillectomy Additional Past Surgical History / Comment(s): D&C, carpal tunnel surgery left , LT ARM SX FOR "PINCHED NERVE", LT THUMB TRIGGER FINGER, rae neuroma removed left foot, heart cath 2015 , right ankle fx 01/2018 no surgery , VONNIE CATARACT REMOVED WITH LENS IMPLANT thyroidectomy Past Anesthesia/Blood Transfusion Reactions: Previous Problems w/ Anesthesia, Motion Sickness Additional Past Anesthesia/Blood Transfusion Reaction / Comment(s): difficulty waking from anesthesia Date of Last Stent Placement:: 01/27 Smoking Status: Former smoker - Past Family History Father Family Medical History: Cancer Additional Family Medical History / Comment(s): skin Mother Family Medical History: Diabetes Mellitus, Hypertension, Osteoarthritis (OA) Additional Family Medical History / Comment(s): MURMUR Sister(s) Family Medical History: Cancer Additional Family Medical History / Comment(s): ovarian Medications and Allergies Home Medications Medication Instructions Recorded Confirmed Type Montelukast [Singulair] 10 mg PO HS 04/16/17 05/30/24 History PARoxetine HCL [Paxil] 40 mg PO DAILY 12/27/18 05/30/24 History Empagliflozin [Jardiance] 10 mg PO DAILY 01/13/23 05/30/24 History Insulin Glargine,Hum.rec.anlog 50 units SQ HS 01/13/23 05/30/24 History [Lantus Solostar Pen] oxyCODONE-APAP 5-325MG [Percocet 1 tab PO TID PRN 01/13/23 05/30/24 History 5-325 mg] tiZANidine [Zanaflex] 4 mg PO HS 01/13/23 05/30/24 History Atorvastatin [Lipitor] 40 mg PO HS 01/14/24 05/30/24 History Butalb/APAP/Caff 50-325-40Mg 1 tab PO BID PRN 01/14/24 05/30/24 History [Fioricet 50-325-40] Diclofenac Sodium Gel [Voltaren 1% 1 applic TOPICAL BID PRN 01/14/24 05/30/24 History Gel] Ergocalciferol [Vitamin D2 (1250 1,250 mcg PO TU 01/14/24 05/30/24 History Mcg = 84587 Iu)] Fluticasone Nasal [place] [Flonase 2 spr EA NOSTRIL HS PRN 01/14/24 05/30/24 History Nasal [place]] Isosorbide Mononitrate ER [Imdur] 30 mg PO DAILY 01/14/24 05/30/24 History Levothyroxine Sodium 150 mcg PO DAILY 01/14/24 05/30/24 History Metoprolol Succinate (ER) [Toprol 50 mg PO DAILY 01/14/24 05/30/24 History XL] Nystatin 100,000 Unit/gm Powd 1 applic TOPICAL BID PRN 01/14/24 05/30/24 History [Mycostatin Powder] Tirzepatide [Mounjaro] 5 mg SQ TH 01/14/24 05/30/24 History metFORMIN HCL 1,000 mg PO BID 01/14/24 05/30/24 History Ondansetron [Zofran] 4 mg PO Q8HR PRN 4 Days #10 tab 01/17/24 05/30/24 Rx Ferrous Sulfate [Iron (65 MG 325 mg PO DAILY 02/20/24 05/30/24 History Elemental)] Pantoprazole [Protonix] 40 mg PO DAILY 02/20/24 05/30/24 History INSULIN LISPRO (HumaLOG) [humaLOG] 24 units SQ AC-TID 03/30/24 05/30/24 History INSULIN LISPRO (HumaLOG) [humaLOG] See Protocol SQ ACHS 03/30/24 05/30/24 History Budesonide 0.5 mg INHALATION DIRECTED PRN 05/26/24 05/30/24 History Nitrofurantoin Monohyd/M-Cryst 100 mg PO Q12HR #14 cap 05/27/24 05/30/24 Rx [Macrobid] Allergies Allergy/AdvReac Type Severity Reaction Status Date / Time adhesive Allergy red skin Verified 05/30/24 06:10 ciprofloxacin [From Cipro] Allergy Itching Verified 05/30/24 06:10 hydroxyzine Allergy Itching Verified 05/30/24 06:10 Iodinated Contrast Media Allergy Itching Verified 05/30/24 06:10 [Iodinated Contrast Media - IV Dye] prednisone Allergy Rapid Verified 05/30/24 06:10 Heart Rate, Panic attack Sulfa (Sulfonamide Allergy Anaphylaxis Verified 05/30/24 06:10 Antibiotics) verapamil Allergy Anaphylaxis Verified 05/30/24 06:10 celecoxib [From Celebrex] AdvReac CAUSES GI Verified 05/30/24 06:10 BLEEDING cephalexin monohydrate AdvReac Vomiting Verified 05/30/24 06:10 [From Keflex] diphenhydramine AdvReac arm burned Verified 05/30/24 06:10 [From Benadryl] when given IV Penicillins AdvReac Anaphylaxis Verified 05/30/24 06:10 tramadol AdvReac Nausea & Verified 05/30/24 06:10 Vomiting Physical Exam Vitals: Vital Signs Temp Pulse Resp BP BP Pulse Ox FiO2 05/30/24 14:59 50 05/30/24 14:10 100 05/30/24 13:52 100 05/30/24 06:16 98 F 76 16 152/92 167/79 95 Intake and Output 05/30/24 05/30/24 05/30/24 06:59 14:59 22:59 Intake Total 200 5.693 Output Total 1250 Balance 200 -1244.307 Intake: IV 200 3 Intake, IV Titration 2.693 Amount Insulin Regular 100 unit 2.693 In Sodium Chloride 0.9% 100 ml @ Per Protocol IV .Q0M [facility], [facility]–1983 Rx#:[id number] Output: Urine 450 Estimated Blood Loss 800 Other: Weight 97.5 kg Patient is currently intubated on mechanical ventilator. Orogastric and orotracheal tube are both in place., Comfortable, sedated, the patient has a right IJ [place]Gypsy catheter in place. She is morbidly obese. Head exam was generally normal. There was no scleral icterus or corneal arcus. Mucous membranes were moist. Neck was supple and without jugular venous distension, thyromegaly, or carotid bruits. Carotids were easily palpable bilaterally. There was no adenopathy. Right IJ [place]Gypsy catheter in place. Lung sounds are diminished bilaterally and the patient has mediastinal and left pleural chest tubes in place. No wheezing. Breath sounds are equal and symmetrical. Cardiac exam revealed the PMI to be normally situated and sized. The rhythm was regular and no extrasystoles were noted during several minutes of auscultation. The first and second heart sounds were normal and physiologic splitting of the second heart sound was noted. There were no murmurs, rubs, clicks, or gallops. Thoracotomy scar is dry clean and intact. Abdominal exam revealed normal bowel sounds. The abdomen was soft, non-tender, and without masses, organomegaly, or appreciable enlargement of the abdominal aorta. Examination of the extremities revealed easily palpable radial, femoral and pedal pulses. There was no cyanosis, clubbing or edema. Examination of the skin revealed no evidence of significant rashes, suspicious appearing nevi or other concerning lesions. Neurologically, the patient is sedated on propofol and the patient does not have any focal neurological deficit. Cranial nerves are essentially intact. Results - Laboratory Findings CBC and BMP: 05/30/24 14:30 05/30/24 14:30 ABG WBC 9.1 k/uL (3.8-10.6) 05/30/24 14:30 RBC 3.76 m/uL (3.80-5.40) L 05/30/24 14:30 Hgb 10.4 gm/dL (11.4-16.0) L 05/30/24 14:30 Hct 31.7 % (34.0-46.0) L 05/30/24 14:30 MCV 84.3 fL (80.0-100.0) 05/30/24 14:30 MCH 27.8 pg (25.0-35.0) 05/30/24 14:30 MCHC 32.9 g/dL (31.0-37.0) 05/30/24 14:30 RDW 15.8 % (11.5-15.5) H 05/30/24 14:30 Plt Count 108 k/uL (150-450) L 05/30/24 14:30 MPV 7.1 05/30/24 14:30 Neutrophils % 88 % 05/30/24 14:30 Lymphocytes % 7 % 05/30/24 14:30 Monocytes % 4 % 05/30/24 14:30 Eosinophils % 1 % 05/30/24 14:30 Basophils % 0 % 05/30/24 14:30 Neutrophils # 8.1 k/uL (1.3-7.7) H 05/30/24 14:30 Lymphocytes # 0.6 k/uL (1.0-4.8) L 05/30/24 14:30 Monocytes # 0.4 k/uL (0-1.0) 05/30/24 14:30 Eosinophils # 0.0 k/uL (0-0.7) 05/30/24 14:30 Basophils # 0.0 k/uL (0-0.2) 05/30/24 14:30 PT 12.2 sec (10.0-12.5) 05/30/24 14:30 INR 1.1 (<1.2) 05/30/24 14:30 APTT 29.7 sec (22.0-30.0) 05/30/24 14:30 Sample [place] 05/30/24 14:43 ABG pH 7.25 (7.35-7.45) L 05/30/24 14:43 ABG pCO2 53 mmHg (35-45) H 05/30/24 14:43 ABG pO2 318 mmHg (83-108) H 05/30/24 14:43 ABG HCO3 23 mmol/L (21-25) 05/30/24 14:43 ABG Total CO2 25 mmol/L (19-24) H 05/30/24 14:43 ABG O2 Saturation 100.0 % (94-97) H 05/30/24 14:43 ABG Base Excess -4.4 mmol/L 05/30/24 14:43 ABG Hematocrit 32 % (34.0-46.0) L 05/30/24 13:27 Xavier Test no 05/30/24 14:43 ABG Sodium 140 mmol/L (135-146) 05/30/24 13:27 ABG Potassium 3.9 mmol/L (3.4-4.5) 05/30/24 13:27 ABG Ionized Calcium 4.8 mg/dL (4.5-5.3) 05/30/24 13:27 ABG Glucose 150 mg/dL (75-99) H 05/30/24 13:27 ABG Lactic Acid 2.4 mmol/L (0.5-1.6) H* 05/30/24 13:27 Hemoglobin 10.7 gm/dL (11.4-16.0) L 05/30/24 14:43 FiO2 100 % 05/30/24 14:43 Sodium 138 mmol/L (137-145) 05/30/24 14:30 Potassium 4.0 mmol/L (3.5-5.1) 05/30/24 14:30 Chloride 110 mmol/L (98-107) H 05/30/24 14:30 Carbon Dioxide 21 mmol/L (22-30) L 05/30/24 14:30 Anion Gap 7 mmol/L 05/30/24 14:30 BUN 16 mg/dL (7-17) 05/30/24 14:30 Creatinine 0.64 mg/dL (0.52-1.04) 05/30/24 14:30 Est GFR (CKD-EPI)AfAm >90 (>60 ml/min/1.73 sqM) 05/30/24 14:30 Est GFR (CKD-EPI)NonAf >90 (>60 ml/min/1.73 sqM) 05/30/24 14:30 Glucose 126 mg/dL (74-99) H 05/30/24 14:30 POC Glucose (mg/dL) 139 mg/dL (70-110) H 05/30/24 15:21 POC Glu [place] ID [place] 05/30/24 15:21 Calcium 8.6 mg/dL (8.4-10.2) 05/30/24 14:30 Ionized Calcium [place] 5.0 mg/dL (4.5-5.3) 05/30/24 14:30 Magnesium 2.4 mg/dL (1.6-2.3) H 05/30/24 14:30 Total Bilirubin 1.5 mg/dL (0.2-1.3) H 05/30/24 14:30 AST 66 U/L (14-36) H 05/30/24 14:30 ALT 19 U/L (4-34) 05/30/24 14:30 Alkaline Phosphatase 31 U/L (38-126) L 05/30/24 14:30 Total Protein 5.3 g/dL (6.3-8.2) L 05/30/24 14:30 Albumin 3.3 g/dL (3.5-5.0) L 05/30/24 14:30 Arterial Blood Potassium 3.9 mmol/L (3.4-4.5) 05/30/24 13:27 Arterial Blood Glucose 150 mg/dL (75-99) H 05/30/24 13:27 Urine Color Light Yellow 05/30/24 08:35 Urine Appearance Clear (Clear) 05/30/24 08:35 Urine pH 5.5 (5.0-8.0) 05/30/24 08:35 Ur Specific [place] 1.025 (1.001-1.035) 05/30/24 08:35 Urine Protein Trace (Negative) H 05/30/24 08:35 Urine Glucose (UA) 4+ (Negative) H 05/30/24 08:35 Urine Ketones Negative (Negative) 05/30/24 08:35 Urine Blood Negative (Negative) 05/30/24 08:35 Urine Nitrite Negative (Negative) 05/30/24 08:35 Urine Bilirubin Negative (Negative) 05/30/24 08:35 Urine Urobilinogen <2.0 mg/dL (<2.0) 05/30/24 08:35 Ur Leukocyte Esterase Negative (Negative) 05/30/24 08:35 PT/INR, D-dimer PT 12.2 sec (10.0-12.5) 05/30/24 14:30 INR 1.1 (<1.2) 05/30/24 14:30 Abnormal lab findings: Abnormal Labs 05/24/24 05/30/24 05/30/24 08:43 06:24 08:33 RBC Hgb Hct RDW Plt Count Neutrophils # Lymphocytes # ABG pH 7.28 L ABG pCO2 49 H ABG pO2 243 H ABG HCO3 ABG Total CO2 ABG O2 Saturation 99.0 H ABG Hematocrit ABG Potassium ABG Ionized Calcium ABG Glucose 171 H ABG Lactic Acid Hemoglobin Chloride Carbon Dioxide Glucose POC Glucose (mg/dL) 170 H Magnesium Total Bilirubin AST Alkaline Phosphatase Total Protein Albumin Arterial Blood Potassium Arterial Blood Glucose 171 H Urine Protein Urine Glucose (UA) Crossmatch See Detail 05/30/24 05/30/24 05/30/24 08:35 10:27 11:00 RBC Hgb Hct RDW Plt Count Neutrophils # Lymphocytes # ABG pH ABG pCO2 ABG pO2 131 H 387 H ABG HCO3 20 L ABG Total CO2 ABG O2 Saturation 98.6 H >99.4 H ABG Hematocrit 31 L 24 L ABG Potassium 3.2 L 3.1 L ABG Ionized Calcium 3.8 L ABG Glucose 140 H 136 H ABG Lactic Acid Hemoglobin 10.2 L 7.7 L Chloride Carbon Dioxide Glucose POC Glucose (mg/dL) Magnesium Total Bilirubin AST Alkaline Phosphatase Total Protein Albumin Arterial Blood Potassium 3.2 L 3.1 L Arterial Blood Glucose 140 H 136 H Urine Protein Trace H Urine Glucose (UA) 4+ H Crossmatch 05/30/24 05/30/24 05/30/24 11:34 12:07 12:34 RBC Hgb Hct RDW Plt Count Neutrophils # Lymphocytes # ABG pH ABG pCO2 ABG pO2 264 H 369 H 267 H ABG HCO3 ABG Total CO2 ABG O2 Saturation 99.2 H >99.4 H 98.7 H ABG Hematocrit 24 L 25 L 23 L ABG Potassium ABG Ionized Calcium 4.1 L 4.1 L 4.1 L ABG Glucose 168 H 175 H 172 H ABG Lactic Acid 1.7 H Hemoglobin 7.8 L 8.3 L 7.6 L Chloride Carbon Dioxide Glucose POC Glucose (mg/dL) Magnesium Total Bilirubin AST Alkaline Phosphatase Total Protein Albumin Arterial Blood Potassium Arterial Blood Glucose 168 H 175 H 172 H Urine Protein Urine Glucose (UA) Crossmatch 05/30/24 05/30/24 05/30/24 13:27 14:19 14:30 RBC 3.76 L Hgb 10.4 L Hct 31.7 L RDW 15.8 H Plt Count 108 L Neutrophils # 8.1 H Lymphocytes # 0.6 L ABG pH ABG pCO2 ABG pO2 271 H ABG HCO3 ABG Total CO2 ABG O2 Saturation 99.1 H ABG Hematocrit 32 L ABG Potassium ABG Ionized Calcium ABG Glucose 150 H ABG Lactic Acid 2.4 H* Hemoglobin 10.5 L Chloride Carbon Dioxide Glucose POC Glucose (mg/dL) 132 H Magnesium Total Bilirubin AST Alkaline Phosphatase Total Protein Albumin Arterial Blood Potassium Arterial Blood Glucose 150 H Urine Protein Urine Glucose (UA) Crossmatch 05/30/24 05/30/24 05/30/24 14:30 14:43 15:21 RBC Hgb Hct RDW Plt Count Neutrophils # Lymphocytes # ABG pH 7.25 L ABG pCO2 53 H ABG pO2 318 H ABG HCO3 ABG Total CO2 25 H ABG O2 Saturation 100.0 H ABG Hematocrit ABG Potassium ABG Ionized Calcium ABG Glucose ABG Lactic Acid Hemoglobin 10.7 L Chloride 110 H Carbon Dioxide 21 L Glucose 126 H POC Glucose (mg/dL) 139 H Magnesium 2.4 H Total Bilirubin 1.5 H AST 66 H Alkaline Phosphatase 31 L Total Protein 5.3 L Albumin 3.3 L Arterial Blood Potassium Arterial Blood Glucose Urine Protein Urine Glucose (UA) Crossmatch - Diagnostic Findings Chest x-ray: image reviewed Assessment and Plan Plan: Post aortic valve replacement and single-vessel bypass surgery. The patient is currently postop day #0. Still intubated on mechanical ventilator. Adequate hemodynamic parameters including cardiac output and index and the patient is hemodynamically stable on no pressors. Postthoracotomy, remains intubated on mechanical ventilator. Output from the chest tube has been noted. The blood gas shows significant respiratory acidosis and the necessary ventilator change will be done. Bicuspid aortic valve with severe aortic stenosis and preserved LV function Coronary artery disease with previous PCI to LAD that was done in January 2023 Morbid obesity with obstructive sleep apnea Hypertension Diabetes mellitus type 2 Hyperlipidemia History of COPD/asthma Peripheral neuropathy involving the lower extremities bilaterally Anemia of chronic disease Stage I chronic kidney disease Lumbar disc disease Previous history of TIA Plan Continue ventilator support and increased respiratory To 24 and increase tidal volume to 400 and dropped FiO2 down to 50% Monitor hemodynamic parameters and the patient is currently on no pressors Monitor the cardiac output and index Insulin drip for blood sugar control which is running at 5 units an hour Keep the patient sedated on propofol Cardiac rhythm is sinus No pressors for now Will continue monitoring the patient's progress and make further recommendations. Severe extubation and I will consider extubating this patient to a BiPAP based on her previous history of obstructive sleep apnea. Will continue to follow.
[2024-05-30 16:20] LABS: Glucose,Whole Blood 173 mg/dL (70-110)
--- NOTE | 2024-05-30 16:36 | P.OP ---
Date of Procedure: 05/30/24 Preoperative Diagnosis: Severe bicuspid aortic valve stenosis, coronary artery disease status post prior stenting to the left anterior descending artery with moderate proximal LAD stenosis, obesity, obstructive sleep apnea using CPAP, hypertension, hyperlipidemia, hypothyroidism, anxiety disorder Postoperative Diagnosis: Same with bicuspid aortic valve from fusion of the right and the left cusps Procedure(s) Performed: 1Single coronary artery bypass grafting using the in situ left intramammary artery to the left anterior descending artery 2Aortic valve replacement using a 23 mm Inspiris Resilia pericardial bioprosthesis 3Exclusion of the left atrial appendage using a 35 mm AtriClip 4Intraoperative transesophageal echocardiogram and epiaortic scanning 5MEDISTIM graft flow measurement 6reinforcement of the sternal closure with 2 plates sternalock EZ SYSTEM Implants: 23 mm Inspiris Resilia aortic bioprosthesis 35 mm AtriClip Surgeon: Carlee Arroyo Cotton Classer Aide #1: Zana Farah Pathology: other Condition: stable Disposition: ICU Indications for Procedure: Severe symptomatic aortic valve stenosis Operative Findings: Bicuspid aortic valve from fusion of the right and left cusps, moderate diffuse left anterior descending artery disease Description of Procedure: Patient in supine position in the preoperative holding area a right internal jugular Regina-Gypsy catheter and the right radial arterial line were placed. Patient had a cardiac index of 2.3 and a PA pressure of 35/20. Subsequently she was brought to the operating room where general endotracheal anesthesia was induced uneventfully. Shea catheter was inserted and we will send the urine analysis and urine culture as the preoperative urine had mixed results. Patient received 1.5 g of vancomycin intravenously. The chest abdomen both lower extremities were prepped and draped using ChloraPrep. Ioban was used to cover the skin. Transesophageal echocardiogram confirmed the preoperative finding of a preserved left ventricular function, left ventricular hypertrophy, severe bicuspid aortic valve stenosis with mild aortic valve regurgitation and no significant mitral valve regurgitation. Midline sternotomy was performed and patient had a very thick subcutaneous fat layer. The bone was moderately osteoporotic. The left hemisternum was elevated and the left internal mammary artery was harvested in a semiskeletonized fashion. The left pleura was intentionally open in this process and was drained with a 19 [place] Wander drain. I made a very small opening of the right pleura at the end of the case to decompress a potential pneumothorax. Patient was given 5000 units of heparin and the mammary artery was double clipped distally and transected had an excellent pulsatile flow in it and was around 1.75 m in diameter. The deep Ankeney retractor was used. Thick mediastinal fat were transected between 2 ties and epiaortic scanning ruled out any protruding atheroma in the ascending aorta. Pericardium was opened in an inverted T fashion and a pericardial cradle was created. Finding included a normal size aorta with very fatty heart hypertrophied but not enlarged. After systemic heparinization after placement of prospective pledgeted pursestring, aortic cannulation in the proximal arch with a 21 [place] slow flow cannula and venous cannulation via the right atrial appendage with a 29/37 [place] cannula was performed. Antegrade as well as retrograde cardioplegia catheter were placed. Cardiopulmonary bypass was initiated and patient temperature was allowed to drift down to 34 C. With a heart warm and beating, we looked at the LAD that had moderate diffuse disease but picked a soft spot in its mid aspect. Subsequently the aorta was clamped and during aortic clamping myocardial adduction was achieved and initial dose of 1 L of antegrade cold blood cardioplegia followed by 400 cc of retrograde cold blood cardioplegia. All subsequent doses were given retrograde at 15 minutes interval. We started by excluding the left atrial appendage by deploying a 35mm AtriClip at its base. Subsequently we performed the distal anastomosis between the in situ left intramammary artery and the mid aspect of the left anterior descending artery where it was opened in a soft spot and was around 1.5 mm in diameter using Prolene 7 0 in continuous fashion. Attention was moved at this point at the aortic valve replacement part. A transverse aortotomy was made around 1 cm above the sinotubular junction over half of the circumference of the aorta. Expiration revealed bicuspid aortic valve with fusion of the right and left cusps with heavy calcification. We proceeded at excising the valve and decalcifying the annulus up to fully pliable tissue. Thorough irrigation with 700 cc of cold saline was done at this point. Both coronary ostia were in normal position. The annulus was measured to a 23 mm Inspiris so we did not pursue annular enlargement. A total of 19 sutures of none pledgeted Tycron 2 over placed in a horizontal mattress fashion passed in a 23 mm Inspiris Resilia bioprosthesis cuffs. That valve was seated nicely in a supra annular position all the needles were cut and the suture tied using the core knot device. Both coronary ostia were clear. Thorough irrigation performed 1 more time. At this point rewarming was started as we close the aortotomy in 2 layers using 4-0 Prolene pledgeted on each corner with the first layer in a horizontal mattress and the second layer in an over and over technique. During the aortotomy closure we reestablish flow via the left intramammary artery and we gave the patient around 1 L of warm blood via the retrograde route. Patient was given lidocaine magnesium. Patient was placed in Trendelenburg position and aggressive de-airing maneuver pursued before unclamping the aorta. Patient initially had a junctional rhythm but regained quickly a normal sinus rhythm with good conduction. IKER showed no paravalvular leak at this point. De-airing was guided by IKER. 2 monopolar atrial pacing wires were affixed to the respective pursestring on the right atrium and 1 bipolar ventricular pacing wire was driven via the inferior aspect of the right ventricle. After around 15 minutes of reperfusion we were able to wean off cardiac bypass without the need of any inotropic or vasopressor support. IKER at this point showed good functioning aortic valve with no paravalvular leak and low gradient with a normal left ventricular function and no air in the ventricle. At this point we proceeded at graphical measurement using the Znapshop system. A 4 mm probe was selected and the flow was 26 mL/min, pulsatility index of 3.1 and diastolic filling of 78% showing excellent functioning graft with some mild competitive flow. With that all pump suckers were stopped as we gave test dose followed by full dose protamine. Decannulation followed. The venous cannulation site required reinforcement with silk bowtie. Pericardial mediastinal fat were approximated over the aorta and the heart. After ensuring adequate hemostasis hemodynamic and after correct sponge instrument and needle count the sternum was closed using 5 [id number] [place] cable and was also reinforced with 2 plates at the manubrium and 1 at the body of the sternum using a V plate from the sternal lock EZ system affixed with four 16mm screws each. Rest of closure proceeded in layers. Skin glue was applied. Patient did not receive any blood in product but received around 900 cc of Cell Saver blood. She is transferred to the ICU in stable condition with excellent hemodynamics on low-dose nitroglycerin with a normal sinus rhythm and conduction and a cardiac index of 2.3 with a chest closed.
[2024-05-30 16:48] LABS: Basophils % (A) 0 %; Eosinophils % (A) 0 %; HCT 33.1 % (34.0-46.0); HGB 10.9 gm/dL (11.4-16.0); Lymphocytes # (A) 0.6 k/uL (1.0-4.8); Lymphocytes % (A) 7 %; MCH 27.6 pg (25.0-35.0); MCV 83.6 fL (80.0-100.0); Mean Platelet Volume 7.6; Monocytes # (A) 0.5 k/uL (0-1.0); Monocytes % (A) 6 %; Neutrophils # (A) 7.1 k/uL (1.3-7.7); Neutrophils % (A) 85 %; Platelet Count 110 k/uL (150-450); RBC 3.96 m/uL (3.80-5.40); RDW 15.7 % (11.5-15.5); WBC 8.3 k/uL (3.8-10.6)
[2024-05-30 17:30] LABS: Glucose,Whole Blood 200 mg/dL (70-110)
[2024-05-30 18:15] LABS: Glucose,Whole Blood 175 mg/dL (70-110)
[2024-05-30] MEDS: ACETAMINOPHEN IV (For NPO) 1,000 MG in EMPTY BAG 1 BAG IVPB SCH (18:56)
[2024-05-30] MEDS: CLEVIDIPINE BUTYRATE 25 MG in EMPTY BAG 1 BAG IV PRN (19:00)
[2024-05-30 19:07] LABS: Glucose,Whole Blood 185 mg/dL (70-110)
[2024-05-30 19:47] LABS: ABG Base Excess -1.9 mmol/L; ABG HCO3 22 mmol/L (21-25); ABG Oxygen Saturation 96.5 % (94-97); ABG PCO2 34 mmHg (35-45); ABG PH 7.42 (7.35-7.45); ABG PO2 76 mmHg (83-108); ABG TCO2 23 mmol/L (19-24); Allen Test Performed? Yes
[2024-05-30 19:53] LABS: Anisocytosis Slight; Basophils % (A) 0 %; Eosinophils % (A) 0 %; HCT 33.8 % (34.0-46.0); HGB 11.5 gm/dL (11.4-16.0); Lymphocytes # (A) 0.5 k/uL (1.0-4.8); Lymphocytes % (A) 5 %; MCH 28.1 pg (25.0-35.0); MCHC 34.2 g/dL (31.0-37.0); MCV 82.2 fL (80.0-100.0); Mean Platelet Volume 8.4; Monocytes # (A) 0.4 k/uL (0-1.0); Monocytes % (A) 4 %; Neutrophils # (A) 8.4 k/uL (1.3-7.7); Neutrophils % (A) 90 %; Platelet Count 123 k/uL (150-450); RBC 4.11 m/uL (3.80-5.40); RDW 16.1 % (11.5-15.5); WBC 9.4 k/uL (3.8-10.6)
[2024-05-30 20:07] LABS: Glucose,Whole Blood 190 mg/dL (70-110)
[2024-05-30] MEDS: METOPROLOL TARTRATE 12.5 MG TAB PO SCH (20:15)
[2024-05-30] MEDS: CLOPIDOGREL 75 MG TAB PO SCH (20:16)
[2024-05-30] MEDS: AMIODARONE 450 MG in DEXTROSE 5% IN WATER 250 ML IV SCH (20:16)
[2024-05-30] MEDS: VANCOMYCIN 1,500 MG in SODIUM CHLORIDE 0.9% 500 ML 500 ML IVPB SCH (21:13)
[2024-05-30] MEDS: MUPIROCIN 2% OINT 22 GM TUBE NASAL SCH (21:40)
[2024-05-30 21:51] LABS: Glucose,Whole Blood 181 mg/dL (70-110)
[2024-05-30 22:57] LABS: Glucose,Whole Blood 164 mg/dL (70-110)
[2024-05-30 23:53] LABS: Glucose,Whole Blood 155 mg/dL (70-110)
[2024-05-31] MEDS: ALBUMIN HUMAN 5% 250 ML in EMPTY BAG 1 BAG IVPB PRN (00:36)
[2024-05-31] MEDS: IPRATROPIUM-ALBUTEROL 3 ML NEB INHALATION PRN (00:47)
[2024-05-31 01:00] LABS: Glucose,Whole Blood 151 mg/dL (70-110)
[2024-05-31 01:59] LABS: Glucose,Whole Blood 139 mg/dL (70-110)
[2024-05-31 03:11] LABS: Glucose,Whole Blood 131 mg/dL (70-110)
[2024-05-31 04:03] LABS: Glucose,Whole Blood 121 mg/dL (70-110)
[2024-05-31 05:07] LABS: Anisocytosis Slight; Basophils % (A) 0 %; Eosinophils % (A) 0 %; HCT 32.4 % (34.0-46.0); HGB 10.5 gm/dL (11.4-16.0); Hypochromasia Slight; Lymphocytes # (A) 0.8 k/uL (1.0-4.8); Lymphocytes % (A) 8 %; MCH 27.7 pg (25.0-35.0); MCHC 32.5 g/dL (31.0-37.0); MCV 85.3 fL (80.0-100.0); Mean Platelet Volume 7.3; Monocytes # (A) 0.6 k/uL (0-1.0); Monocytes % (A) 7 %; Neutrophils # (A) 7.8 k/uL (1.3-7.7); Neutrophils % (A) 84 %; Platelet Count 121 k/uL (150-450); RDW 16.2 % (11.5-15.5); WBC 9.4 k/uL (3.8-10.6)
[2024-05-31] MEDS: ONDANSETRON 4 MG/2 ML VIAL IVP PRN (05:13)
[2024-05-31 05:53] LABS: Glucose,Whole Blood 127 mg/dL (70-110)
[2024-05-31 06:00] LABS: Ionized Calcium 4.8 mg/dL (4.5-5.3)
[2024-05-31 06:16] LABS: ALT 24 U/L (4-34); AST 55 U/L (14-36); African American GFR (CKD) >90 (>60 ml/min/1.73 sqM); Albumin 3.7 g/dL (3.5-5.0); Alkaline Phosphatase 45 U/L (38-126); Anion Gap 8 mmol/L; Blood Urea Nitrogen 15 mg/dL (7-17); Calcium 8.2 mg/dL (8.4-10.2); Carbon Dioxide 24 mmol/L (22-30); Chloride 108 mmol/L (98-107); Glucose 115 mg/dL (74-99); Magnesium 2.1 mg/dL (1.6-2.3); Non-African American GFR(CKD) >90 (>60 ml/min/1.73 sqM); Potassium 4.1 mmol/L (3.5-5.1); Sodium 140 mmol/L (137-145); Total Bilirubin 0.7 mg/dL (0.2-1.3); Total Protein 5.6 g/dL (6.3-8.2)
[2024-05-31] MEDS ORDERED: BUDESONIDE 0.5 MG/2 ML NEBU INHALATION PRN (06:45)
[2024-05-31 06:53] LABS: Glucose,Whole Blood 124 mg/dL (70-110)
--- NOTE | 2024-05-31 07:45 | P.CRDCN ---
History of Present Illness Consult date: 05/31/24 History of present illness: History of Present Illness: The patient is a 54-year-old female who presented yesterday to undergo aortic valve replacement because of severe bicuspid aortic valve stenosis. She received a size 23 pericardial bioprosthesis with single LOGAN to the LAD and closure of the left atrial appendage. She is extubated, sitting up in the chair. She is in sinus mechanism. She denies any dizziness or palpitations. She has chest soreness. She is on no vasopressors. She is status post stenting of the LAD, her IKER performed preoperatively showed a severe aortic stenosis with preserved systolic function. She had mild aortic regurgitation with mild mitral regurgitation preoperatively. She has a history of diabetes, hypertension and hyperlipidemia. Medications: As an outpatient she was on metformin 1 g twice a day, insulin, metoprolol succinate 50 mg daily, isosorbide mononitrate 30 mg daily, Jardiance 10 mg daily, Lipitor 40 mg daily, Mounjaro, paroxetine, levothyroxine Review of Systems: Respiratory: She has dyspnea on exertion but no recent wheezing or cough GI: No nausea or vomiting . No history of peptic ulcer disease. No recent GI bleed. : No hematuria or dysuria. Nervous System: No stroke or seizure. Physical Examination: 54-year-old female, alert, oriented mildly sleepy,Blood pressure 109/54, Heart rate 79, [place] catheter in place Head: Normocephalic. Eyes: Sclerae nonicteric. Neck: Good carotid upstroke, no bruit, no jugular venous distention. Lungs: Clear to auscultation. Heart: Regular rate and rhythm, S1-S2, no S3, no rub., Systolic ejection murmur. Abdomen: Soft nontender, positive bowel sounds no organomegaly. Obese Extremities: No edema, intact distal pulses. Labs: Hemoglobin 10.5, BUN 15, creatinine 0.72, potassium 4.1. EKG: Pending Impression: 1. Status post aortic valve replacement for severe bicuspid aortic valve stenosis with single LOGAN to the LAD 2. History of hypertension 3. History of hyperlipidemia 4. History of diabetes Plan: 1. Continue present therapy 2. Increase physical activity 3. If stable remove [place] catheter later on 4. Incentive spirometry 5. Depending on her progress further recommendations will be made, thank you for this consult we will follow with you. Past Medical History Past Medical History: Asthma, Chest Pain / Angina, COPD, CVA/TIA, Diabetes Mellitus, GERD/Reflux, Hyperlipidemia, Hypertension, Osteoarthritis (OA), Renal Disease, Sleep Apnea/CPAP/BIPAP Additional Past Medical History / Comment(s): vonnie.neuropathy feet, bleeds easily, hx. of anemia, TIA's couple years ago-minor droop right side of mouth & right eye, uses CPAP, stage 1 kidney disease, bulging lumbar discs, disc problem in thoracic area History of Any Multi-Drug Resistant Organisms: None Reported Past Surgical History: Adenoidectomy, Cholecystectomy, Heart Catheterization, Heart Catheterization With Stent, Tonsillectomy Additional Past Surgical History / Comment(s): D&C, carpal tunnel surgery left , LT ARM SX FOR "PINCHED NERVE", LT THUMB TRIGGER FINGER, rae neuroma removed left foot, heart cath 2015 , right ankle fx 01/2018 no surgery , VONNIE CATARACT REMOVED WITH LENS IMPLANT thyroidectomy Past Anesthesia/Blood Transfusion Reactions: Previous Problems w/ Anesthesia, Motion Sickness Additional Past Anesthesia/Blood Transfusion Reaction / Comment(s): difficulty waking from anesthesia Date of Last Stent Placement:: 01/27 Smoking Status: Former smoker - Past Family History Father Family Medical History: Cancer Additional Family Medical History / Comment(s): skin Mother Family Medical History: Diabetes Mellitus, Hypertension, Osteoarthritis (OA) Additional Family Medical History / Comment(s): MURMUR Sister(s) Family Medical History: Cancer Additional Family Medical History / Comment(s): ovarian Medications and Allergies Home Medications Medication Instructions Recorded Confirmed Type Montelukast [Singulair] 10 mg PO HS 04/16/17 05/30/24 History PARoxetine HCL [Paxil] 40 mg PO DAILY 12/27/18 05/30/24 History Empagliflozin [Jardiance] 10 mg PO DAILY 01/13/23 05/30/24 History Insulin Glargine,Hum.rec.anlog 50 units SQ HS 01/13/23 05/30/24 History [Lantus Solostar Pen] oxyCODONE-APAP 5-325MG [Percocet 1 tab PO TID PRN 01/13/23 05/30/24 History 5-325 mg] tiZANidine [Zanaflex] 4 mg PO HS 01/13/23 05/30/24 History Atorvastatin [Lipitor] 40 mg PO HS 01/14/24 05/30/24 History Butalb/APAP/Caff 50-325-40Mg 1 tab PO BID PRN 01/14/24 05/30/24 History [Fioricet 50-325-40] Diclofenac Sodium Gel [Voltaren 1% 1 applic TOPICAL BID PRN 01/14/24 05/30/24 History Gel] Ergocalciferol [Vitamin D2 (1250 1,250 mcg PO TU 01/14/24 05/30/24 History Mcg = 65196 Iu)] Fluticasone Nasal [place] [Flonase 2 spr EA NOSTRIL HS PRN 01/14/24 05/30/24 History Nasal [place]] Isosorbide Mononitrate ER [Imdur] 30 mg PO DAILY 01/14/24 05/30/24 History Levothyroxine Sodium 150 mcg PO DAILY 01/14/24 05/30/24 History Metoprolol Succinate (ER) [Toprol 50 mg PO DAILY 01/14/24 05/30/24 History XL] Nystatin 100,000 Unit/gm Powd 1 applic TOPICAL BID PRN 01/14/24 05/30/24 History [Mycostatin Powder] Tirzepatide [Mounjaro] 5 mg SQ TH 01/14/24 05/30/24 History metFORMIN HCL 1,000 mg PO BID 01/14/24 05/30/24 History Ondansetron [Zofran] 4 mg PO Q8HR PRN 4 Days #10 tab 01/17/24 05/30/24 Rx Ferrous Sulfate [Iron (65 MG 325 mg PO DAILY 02/20/24 05/30/24 History Elemental)] Pantoprazole [Protonix] 40 mg PO DAILY 02/20/24 05/30/24 History INSULIN LISPRO (HumaLOG) [humaLOG] 24 units SQ AC-TID 03/30/24 05/30/24 History INSULIN LISPRO (HumaLOG) [humaLOG] See Protocol SQ ACHS 03/30/24 05/30/24 History Budesonide 0.5 mg INHALATION DIRECTED PRN 05/26/24 05/30/24 History Nitrofurantoin Monohyd/M-Cryst 100 mg PO Q12HR #14 cap 05/27/24 05/30/24 Rx [Macrobid] Allergies Allergy/AdvReac Type Severity Reaction Status Date / Time adhesive Allergy red skin Verified 05/30/24 06:10 ciprofloxacin [From Cipro] Allergy Itching Verified 05/30/24 06:10 hydroxyzine Allergy Itching Verified 05/30/24 06:10 Iodinated Contrast Media Allergy Itching Verified 05/30/24 06:10 [Iodinated Contrast Media - IV Dye] prednisone Allergy Rapid Verified 05/30/24 06:10 Heart Rate, Panic attack Sulfa (Sulfonamide Allergy Anaphylaxis Verified 05/30/24 06:10 Antibiotics) verapamil Allergy Anaphylaxis Verified 05/30/24 06:10 celecoxib [From Celebrex] AdvReac CAUSES GI Verified 05/30/24 06:10 BLEEDING cephalexin monohydrate AdvReac Vomiting Verified 05/30/24 06:10 [From Keflex] diphenhydramine AdvReac arm burned Verified 05/30/24 06:10 [From Benadryl] when given IV Penicillins AdvReac Anaphylaxis Verified 05/30/24 06:10 tramadol AdvReac Nausea & Verified 05/30/24 06:10 Vomiting Physical Exam Vitals: Vital Signs Temp Pulse Pulse Resp BP Pulse Ox FiO2 05/31/24 07:00 79 24 96 05/31/24 06:45 80 17 95 05/31/24 06:30 80 24 92 L 05/31/24 06:15 82 20 95 05/31/24 06:00 82 21 97 05/31/24 05:45 82 23 95 05/31/24 05:30 79 22 96 05/31/24 05:15 79 23 98 05/31/24 05:00 78 23 99 05/31/24 04:45 79 25 H 97 30 05/31/24 04:30 78 25 H 89 L 05/31/24 04:21 30 05/31/24 04:15 80 26 H 96 05/31/24 04:00 99.7 F H 80 20 98 40 05/31/24 03:45 80 20 98 05/31/24 03:30 78 19 98 05/31/24 03:15 76 18 98 05/31/24 03:00 79 19 97 40 05/31/24 02:45 82 23 97 05/31/24 02:30 80 20 97 05/31/24 02:15 79 17 97 05/31/24 02:00 73 21 96 05/31/24 01:45 80 19 97 05/31/24 01:30 72 21 97 05/31/24 01:15 81 18 98 05/31/24 01:00 75 18 98 05/31/24 00:47 80 40 05/31/24 00:45 80 20 98 05/31/24 00:30 82 24 96 05/31/24 00:15 80 19 99 05/31/24 00:02 81 19 97 05/31/24 00:00 98.4 F 83 22 97 50 05/30/24 23:45 80 18 99 05/30/24 23:30 81 19 99 05/30/24 23:15 81 20 98 05/30/24 23:00 80 21 98 50 05/30/24 22:45 84 20 96 05/30/24 22:30 84 15 96 05/30/24 22:15 85 20 96 05/30/24 22:00 85 18 97 50 05/30/24 21:45 84 21 96 05/30/24 21:30 87 20 97 05/30/24 21:15 88 19 96 05/30/24 21:00 87 21 98 05/30/24 20:55 50 05/30/24 20:45 84 20 96 50 05/30/24 20:42 50 05/30/24 20:30 72 12 96 05/30/24 20:20 82 05/30/24 20:15 82 21 99 05/30/24 20:09 80 05/30/24 20:03 50 05/30/24 20:00 99.0 F 79 17 94 L 50 05/30/24 19:55 50 05/30/24 19:45 80 24 96 05/30/24 19:30 82 24 106/67 96 05/30/24 19:15 81 24 106/67 98 05/30/24 19:00 77 24 106/67 97 05/30/24 18:45 77 24 99 05/30/24 18:30 80 24 140/87 100 05/30/24 18:15 82 24 100 05/30/24 18:00 82 24 100 05/30/24 17:45 82 24 100 05/30/24 17:30 80 24 100 50 05/30/24 17:15 80 24 100 05/30/24 17:00 79 19 96/64 100 05/30/24 16:45 80 24 100 05/30/24 16:30 80 24 100 05/30/24 16:15 81 24 100 05/30/24 16:00 98.1 F 84 76 24 100 50 05/30/24 15:45 82 24 100 05/30/24 15:30 84 23 100 05/30/24 15:15 89 24 100 05/30/24 15:00 93 24 100 05/30/24 14:59 50 05/30/24 14:45 93 14 100 05/30/24 14:30 92 14 05/30/24 14:15 88 0 L 05/30/24 14:12 92 17 05/30/24 14:10 100 Intake and Output 05/30/24 05/31/24 05/31/24 22:59 06:59 14:59 Intake Total 1731.825 3169.682 316.954 Output Total 830 570 35 Balance 457.118 944.682 281.954 Intake: IV 1192 1332 309 Albumin Human 5% 250 ml 750 250 In Empty Bag 1 bag @ 250 mls/hr IVPB Q1HR PRN Rx#: [id number] Injectate 220 110 0 Pressure Bags 72 72 9 Sodium Chloride 0.9% 1, 400 400 50 000 ml @ 50 mls/hr IV . Q20H MICHAEL Rx#:[id number] Vancomycin 1,500 mg In 500 Sodium Chloride 0.9% 500 ml 500 ml @ 167 mls/hr IVPB Q12HR MICHAEL Rx#: [id number] Intake, IV Titration 95.118 62.682 7.954 Amount Clevidipine Butyrate 25 13.133 2.234 mg In Empty Bag 1 bag @ 1 MG/HR 2 mls/hr IV .Q24H PRN Rx#:[id number] Insulin Regular 100 unit 27.970 60.448 7.954 In Sodium Chloride 0.9% 100 ml @ Per Protocol IV .Q0M MICHAEL Rx#:[id number] propofoL 1,000 mg In 54.015 Empty Bag 1 bag @ Titrate IV .Q0M MICHAEL Rx#: [id number] Oral 120 Output: Chest Tube Drainage 185 130 10 Left Pleural 70 80 10 Mediastinal x2 115 50 0 Urine 645 440 25 Other: Voiding Method Indwelling Catheter Indwelling Catheter Weight 100.8 kg ABP, PAP, CO, CI - Last 8 Hours Arterial Blood Pressure 109/54 Arterial Blood Pressure 121/60 Arterial Blood Pressure 101/52 Arterial Blood Pressure 107/56 Arterial Blood Pressure 115/58 Arterial Blood Pressure 102/48 Arterial Blood Pressure 100/50 Arterial Blood Pressure 98/48 Arterial Blood Pressure 105/56 Arterial Blood Pressure 99/51 Arterial Blood Pressure 72/41 Arterial Blood Pressure 120/59 Arterial Blood Pressure 129/63 Arterial Blood Pressure 134/65 Arterial Blood Pressure 123/61 Arterial Blood Pressure 121/61 Arterial Blood Pressure 122/61 Arterial Blood Pressure 121/60 Arterial Blood Pressure 122/59 Arterial Blood Pressure 122/61 Arterial Blood Pressure 114/57 Arterial Blood Pressure 127/63 Arterial Blood Pressure 135/65 Arterial Blood Pressure 124/60 Arterial Blood Pressure 126/63 Arterial Blood Pressure 93/48 Arterial Blood Pressure 131/63 Arterial Blood Pressure 128/62 Arterial Blood Pressure 111/55 Arterial Blood Pressure 125/60 Pulmonary Artery Pressure 30/11 Pulmonary Artery Pressure 29/11 Pulmonary Artery Pressure 36/14 Pulmonary Artery Pressure 34/11 Pulmonary Artery Pressure 37/14 Pulmonary Artery Pressure 35/10 Pulmonary Artery Pressure 28/8 Pulmonary Artery Pressure 27/7 Pulmonary Artery Pressure 31/13 Pulmonary Artery Pressure 27/10 Pulmonary Artery Pressure 23/6 Pulmonary Artery Pressure 28/11 Pulmonary Artery Pressure 29/11 Pulmonary Artery Pressure 28/10 Pulmonary Artery Pressure 27/11 Pulmonary Artery Pressure 27/10 Pulmonary Artery Pressure 26/12 Pulmonary Artery Pressure 26/10 Pulmonary Artery Pressure 29/11 Pulmonary Artery Pressure 28/10 Pulmonary Artery Pressure 22/10 Pulmonary Artery Pressure 26/11 Pulmonary Artery Pressure 27/11 Pulmonary Artery Pressure 29/11 Pulmonary Artery Pressure 27/11 Pulmonary Artery Pressure 24/12 Pulmonary Artery Pressure 22/9 Pulmonary Artery Pressure 25/8 Pulmonary Artery Pressure 25/9 Pulmonary Artery Pressure 24/8 Pulmonary Artery Pressure 26/8 Cardiac Output 3.6 Cardiac Output 4.1 Cardiac Output 4.2 Cardiac Output 4.3 Cardiac Index 1.8 Cardiac Index 2.1 Cardiac Index 2.2 Cardiac Index 2.2 Results 05/31/24 04:17 05/31/24 04:17 Cardiac Enzymes 05/30/24 05/31/24 Range/Units 14:30 04:17 AST 66 H 55 H (14-36) U/L Coagulation 05/30/24 Range/Units 14:30 PT 12.2 (10.0-12.5) sec APTT 29.7 (22.0-30.0) sec CBC 05/30/24 05/30/24 05/30/24 Range/Units 14:30 16:27 19:35 WBC 9.1 8.3 9.4 (3.8-10.6) k/uL RBC 3.76 L 3.96 4.11 (3.80-5.40) m/uL Hgb 10.4 L 10.9 L 11.5 (11.4-16.0) gm/dL Hct 31.7 L 33.1 L 33.8 L (34.0-46.0) % Plt Count 108 L 110 L 123 L (150-450) k/uL 05/31/24 Range/Units 04:17 WBC 9.4 (3.8-10.6) k/uL RBC 3.80 (3.80-5.40) m/uL Hgb 10.5 L (11.4-16.0) gm/dL Hct 32.4 L (34.0-46.0) % Plt Count 121 L (150-450) k/uL Comprehensive Metabolic Panel 05/30/24 05/31/24 Range/Units 14:30 04:17 Sodium 138 140 (137-145) mmol/L Potassium 4.0 4.1 (3.5-5.1) mmol/L Chloride 110 H 108 H (98-107) mmol/L Carbon Dioxide 21 L 24 (22-30) mmol/L BUN 16 15 (7-17) mg/dL Creatinine 0.64 0.72 (0.52-1.04) mg/dL Glucose 126 H 115 H (74-99) mg/dL Calcium 8.6 8.2 L (8.4-10.2) mg/dL AST 66 H 55 H (14-36) U/L ALT 19 24 (4-34) U/L Alkaline Phosphatase 31 L 45 (38-126) U/L Total Protein 5.3 L 5.6 L (6.3-8.2) g/dL Albumin 3.3 L 3.7 (3.5-5.0) g/dL Current Medications Generic Name Dose Route Start Last Admin Trade Name Freq PRN Reason Stop Dose Admin Acetaminophen 650 mg 05/31/24 13:00 Acetaminophen Tab 325 Mg Tab PO Q4HR PRN Fever and/ or Mild Pain Albuterol/Ipratropium 3 ml 05/30/24 13:39 05/31/24 00:47 Ipratropium-Albuterol 3 Ml Neb INHALATION 3 ml RT-Q2H PRN Administration Shortness Of Breath Or Wheezing Albuterol/Ipratropium 3 ml 05/30/24 20:00 05/30/24 20:09 Ipratropium-Albuterol 3 Ml Neb INHALATION 3 ml RT-QID MICHAEL Administration Amiodarone HCl 400 mg 05/31/24 09:00 Amiodarone 200 Mg Tab PO BID [facility] Aspirin 325 mg 05/31/24 09:00 Aspirin 325 Mg Tab PO DAILY [facility] Atorvastatin Calcium 40 mg 05/31/24 09:00 Atorvastatin 40 Mg Tab PO DAILY [facility] Benzocaine/Menthol 1 each 05/30/24 13:39 Benzocaine/Menthol Lozeng 1 Each Lozenge MUCOUS MEM Q2H PRN Sore Throat Bisacodyl 10 mg 05/31/24 09:00 Bisacodyl 10 Mg Supp RECTAL DAILY PRN Constipation Budesonide 0.5 mg 05/31/24 06:45 Budesonide 0.5 Mg/2 Ml Nebu INHALATION RT-BID PRN Shortness Of Breath Clopidogrel Bisulfate 75 mg 05/30/24 21:00 05/30/24 20:16 Clopidogrel 75 Mg Tab PO 75 mg HS MICHAEL Administration Dextrose/Water 25 ml 05/30/24 13:39 Dextrose 50% Syringe 50 Ml IVP PER PROTOCOL PRN Hypoglycemia Protocol Dextrose/Water 50 ml 05/30/24 13:39 Dextrose 50% Syringe 50 Ml IVP PER PROTOCOL PRN Hypoglycemia Protocol Ergocalciferol 1,250 mcg 05/31/24 09:00 Ergocalciferol 1,250 Mcg (50,000 Iu) Capsule PO TU [facility] Ferrous Sulfate 325 mg 05/31/24 09:00 Ferrous Sulfate 325 Mg Tab PO DAILY [facility] Heparin Sodium (Porcine) 5,000 unit 05/30/24 16:00 05/30/24 23:09 Heparin Sodium,Porcine 5,000 Unit/Ml 1 Ml Vial SQ 5,000 unit Q8HR MICHAEL Administration Hydralazine HCl 10 mg 05/30/24 13:39 Hydralazine Hcl 20 Mg/Ml 1 Ml Vial IVP Q1H PRN Blood Pressure - High Amiodarone HCl 450 mg/ 250 mls @ 16.667 mls/hr 05/30/24 20:30 05/30/24 20:16 Dextrose/Water IV 05/31/24 14:29 0.5 mg/min .Q15H MICHAEL 16.667 mls/hr Administration Protocol 0.5 MG/MIN Amiodarone HCl 150 mg/ 103 mls @ 618 mls/hr 05/30/24 14:20 Dextrose/Water IV .Q10M PRN A.FIB/FLUTTER Albumin Human 250 ml/ IV 250 mls @ 250 mls/hr 05/30/24 13:39 05/31/24 06:36 Solution IVPB 06/01/24 13:38 250 mls/hr Q1HR PRN Administration For Volume Protocol Acetaminophen 1,000 mg/ IV 100 mls @ 400 mls/hr 05/30/24 18:00 05/31/24 06:27 Solution IVPB 05/31/24 12:14 400 mls/hr Q6HR MICHAEL Administration Calcium Gluconate/Sodium 100 mls @ 100 mls/hr 05/30/24 13:39 Chloride 2 gm/ IV Solution IVPB 06/02/24 13:38 ONCE PRN Ionized Calcium less than 4.4 Insulin Human Regular 100 unit 101 mls @ 0 mls/hr 05/30/24 14:30 05/31/24 07:04 / Sodium Chloride IV 7 units/hr .Q0M MICHAEL 7.07 mls/hr Titration Protocol Per Protocol Sodium Chloride 1,000 mls @ 30 mls/hr 05/30/24 13:39 05/30/24 14:21 Saline 0.9% IV 50 mls/hr .Q24H MICHAEL Administration Vancomycin HCl 1,500 mg/ 500 mls @ 167 mls/hr 05/30/24 21:00 05/30/24 21:13 Sodium Chloride IVPB 06/01/24 12:00 167 mls/hr Q12HR MICHAEL Administration Levothyroxine Sodium 150 mcg 05/31/24 09:00 Levothyroxine 75 Mcg Tab PO DAILY@0630 [facility] Losartan Potassium 25 mg 05/31/24 12:00 Losartan 25 Mg Tab PO DAILY@1200 [facility] Magnesium Hydroxide 2,400 mg 05/31/24 09:00 Magnesium Hydroxide 2,400 Mg/30 Ml Cup PO BID PRN Constipation Metoclopramide HCl 10 mg 05/30/24 13:39 Metoclopramide 5 Mg/Ml 2 Ml Vial IVP Q4H PRN Nausea And Vomiting Metoprolol Tartrate 25 mg 05/31/24 09:00 Metoprolol Tartrate 25 Mg Tab PO BID [facility] Miscellaneous Information 1 each 05/30/24 13:39 Potassium Replacement Protocol 1 Each Misc MISCELLANE DAILY PRN Per Protocol Protocol Miscellaneous Information 1 each 05/30/24 13:39 Magnesium Replacement Protocol 1 Each Misc MISCELLANE DAILY PRN Per Protocol Protocol Montelukast Sodium 10 mg 05/31/24 21:00 Montelukast 10 Mg Tab PO HS [facility] Mupirocin 1 applic 05/30/24 21:00 05/30/24 21:40 Mupirocin 2% Oint 22 Gm Tube NASAL 06/02/24 20:59 1 applic BID MICHAEL Administration Ondansetron HCl 4 mg 05/30/24 13:39 05/31/24 05:13 Ondansetron 4 Mg/2 Ml Vial IVP 4 mg Q6HR PRN Administration Nausea And Vomiting Oxycodone HCl 5 mg 05/30/24 13:39 05/31/24 04:53 Oxycodone Hcl 5 Mg Tab PO 5 mg Q4HR PRN Administration Moderate Pain (Scale 4 to 6) Oxycodone HCl 10 mg 05/30/24 13:39 05/31/24 00:31 Oxycodone Hcl 5 Mg Tab PO 10 mg Q4HR PRN Administration Severe Pain (Scale 7 to 10) Pantoprazole Sodium 40 mg 05/31/24 09:00 Pantoprazole 40 Mg/10 Ml Vial IVP 05/31/24 10:00 DAILY MICHAEL Pantoprazole Sodium 40 mg 06/01/24 07:30 Pantoprazole 40 Mg Tablet PO AC-BRKFST MICHAEL Paroxetine HCl 40 mg 05/31/24 09:00 Paroxetine 20 Mg Tab PO DAILY MICHAEL Senna/Docusate Sodium 2 each 05/31/24 21:00 Sennosides-Docusate Sodium 1 Each Tab PO HS [facility] Sodium Chloride 10 ml 05/30/24 21:00 05/30/24 21:41 Sodium Chloride 0.9% Flush 10 Ml Syringe IV 10 ml BID MICHAEL Administration Tizanidine HCl 4 mg 05/31/24 21:00 Tizanidine 4 Mg Tab PO HS MICHAEL Intake and Output 05/30/24 05/31/24 05/31/24 22:59 06:59 14:59 Intake Total 4537.221 3474.682 316.954 Output Total 830 570 35 Balance 457.118 944.682 281.954 Intake: IV 1192 1332 309 Albumin Human 5% 250 ml 750 250 In Empty Bag 1 bag @ 250 mls/hr IVPB Q1HR PRN Rx#: [id number] Injectate 220 110 0 Pressure Bags 72 72 9 Sodium Chloride 0.9% 1, 400 400 50 000 ml @ 50 mls/hr IV . Q20H MICHAEL Rx#:[id number] Vancomycin 1,500 mg In 500 Sodium Chloride 0.9% 500 ml 500 ml @ 167 mls/hr IVPB Q12HR MICHAEL Rx#: [id number] Intake, IV Titration 95.118 62.682 7.954 Amount Clevidipine Butyrate 25 13.133 2.234 mg In Empty Bag 1 bag @ 1 MG/HR 2 mls/hr IV .Q24H PRN Rx#:[id number] Insulin Regular 100 unit 27.970 60.448 7.954 In Sodium Chloride 0.9% 100 ml @ Per Protocol IV .Q0M [facility] Rx#:[id number] propofoL 1,000 mg In 54.015 Empty Bag 1 bag @ Titrate IV .Q0M MICHAEL Rx#: [id number] Oral 120 Output: Chest Tube Drainage 185 130 10 Left Pleural 70 80 10 Mediastinal x2 115 50 0 Urine 645 440 25 Other: Voiding Method Indwelling Catheter Indwelling Catheter Weight 100.8 kg 05/31/24 04:17 05/31/24 04:17
--- NOTE | 2024-05-31 07:58 | XR ---
EXAMINATION TYPE: XR chest 1V portable DATE OF EXAM: 05/31/2024 COMPARISON: 05/30/2024 INDICATION: Postop cardiac surgery TECHNIQUE: Single frontal view of the chest is obtained. FINDINGS: The heart size is normal. Sternotomy wires are in the midline. The pulmonary vasculature is normal. Left lower lobe infiltrate is present. [place]Gypsy catheter is present with the tip in the region of the main pulmonary artery. Endotracheal t ube and nasogastric tube been removed. IMPRESSION: 1. Mild left lower lobe infiltrate. Correlate for atelectasis or developing pneumonia. 2. [place]Gy[place] catheter. [facility], , 05/31/2024 7:56 AM
[2024-05-31 08:38] LABS: Glucose,Whole Blood 113 mg/dL (70-110)
[2024-05-31] MEDS: ALBUMIN HUMAN 25% 50 ML in EMPTY BAG 1 BAG IVPB ONE (08:58)
[2024-05-31] MEDS ORDERED: MAGNESIUM HYDROXIDE 2,400 MG/30 ML CUP PO PRN (09:00)
[2024-05-31] MEDS ORDERED: METOPROLOL TARTRATE 12.5 MG TAB PO SCH (09:00)
[2024-05-31] MEDS ORDERED: CLOPIDOGREL 75 MG TAB PO SCH (09:00)
[2024-05-31] MEDS ORDERED: NITROFURANTOIN MONOHYD/M-CRYST 100 MG CAP PO SCH (09:00)
[2024-05-31] MEDS ORDERED: bisacodyL 10 MG SUPP RECTAL PRN (09:00)
[2024-05-31 09:48] LABS: Glucose,Whole Blood 178 mg/dL (70-110)
[2024-05-31] MEDS: AMIODARONE 200 MG TAB PO SCH (09:59)
[2024-05-31] MEDS: METOPROLOL TARTRATE 25 MG TAB PO SCH (09:59)
[2024-05-31] MEDS: PARoxetine 20 MG TAB PO SCH (09:59)
[2024-05-31] MEDS: ERGOCALCIFEROL 1,250 MCG (50,000 IU) CAPSULE PO SCH (09:59)
[2024-05-31] MEDS: FERROUS SULFATE 325 MG TAB PO SCH (09:59)
[2024-05-31] MEDS: ATORVASTATIN 40 MG TAB PO SCH (09:59)
[2024-05-31] MEDS: ASPIRIN 325 MG TAB PO SCH (09:59)
[2024-05-31] MEDS: LEVOTHYROXINE 75 MCG TAB PO SCH (09:59)
[2024-05-31] MEDS: PANTOPRAZOLE 40 MG/10 ML VIAL IVP SCH (10:00)
--- NOTE | 2024-05-31 10:11 | P.PN ---
Subjective Progress Note Date: 05/31/24 Principal diagnosis: Severe bicuspid aortic valve stenosis with fusion of the right and the left cusps, coronary artery disease status with previous myocardial infarction post prior stenting to the left anterior descending artery with moderate proximal LAD stenosis, hypertension, hyperlipidemia, insulin-dependent diabetes mellitus, TIA a few years ago, obesity, obstructive sleep apnea using CPAP, COPD/asthma, hypothyroidism, anxiety disorder, previous tobacco dependence, occasional marijuana use. Family history of premature coronary artery disease with father diagnosed in his 50s. Preoperative urinary tract infection with E. coli, treated. Preoperative nasal swab positive for MSSA, treated. POD #1 single coronary artery bypass grafting using the in situ left intrama mmary artery to the left anterior descending artery, aortic valve replacement using a 23 mm Inspiris Resilia pericardial bioprosthesis, exclusion of the left atrial appendage using a 35 mm AtriClip, intraoperative transesophageal echocardiogram and epiaortic scanning, MEDISTIM graft flow measurement, reinforcement of the sternal closure with 2 plates sternalock EZ SYSTEM Postoperative acute blood loss anemia and thrombocytopenia, expected given hemodilution and cardiopulmonary bypass pump The patient was seen and examined this morning with Dr. Chan sitting up in recliner sleeping although she does arouse to verbal stimuli. She was successfully extubated yesterday at 20:39. Currently in sinus rhythm, hemodynamically stable on no inotropes or pressors. Currently on 2 L nasal cannula with oxygen saturation in the mid 90s, barely able to achieve 500 mL on her incentive spirometry with poor effort. Remains on IV amiodarone for A-fib prophylaxis. Denies any pain currently, denies shortness of breath. Right internal jugular [place]ordis, right radial arterial line, mediastinal/left pleural chest tubes all remain. No other new concerns. Objective - Vital Signs Vital signs: Vital Signs Temp 99.7 F H 05/31/24 04:00 Pulse 73 05/31/24 09:30 Resp 18 05/31/24 09:30 BP 109/73 05/31/24 09:30 Pulse Ox 96 05/31/24 09:30 FiO2 30 05/31/24 04:45 Intake & Output 05/30/24 05/31/24 05/31/24 18:59 06:59 18:59 Intake Total 863.496 9161.955 476.889 Output Total 1845 955 125 Balance -3745.448 2370.955 351.889 Weight 100.8 kg Intake: IV 448 2168 467 Albumin Human 25% 50 ml @ 50 0 mls/hr IV ONCE ONE Rx# :[id number] Albumin Human 5% 250 ml 750 250 In Empty Bag 1 bag @ 250 mls/hr IVPB Q1HR PRN Rx#: [id number] Injectate 150 210 40 Pressure Bags 45 108 27 Sodium Chloride 0.9% 1, 250 600 100 000 ml @ 30 mls/hr IV . Q24H MICHAEL Rx#:[id number] Vancomycin 1,500 mg In 500 Sodium Chloride 0.9% 500 ml 500 ml @ 167 mls/hr IVPB Q12HR MICHAEL Rx#: [id number] Intake, IV Titration 10.538 149.955 9.889 Amount Clevidipine Butyrate 25 15.367 mg In Empty Bag 1 bag @ 1 MG/HR 2 mls/hr IV .Q24H PRN Rx#:[id number] Insulin Regular 100 unit 10.538 80.573 9.889 In Sodium Chloride 0.9% 100 ml @ Per Protocol IV .Q0M MICHAEL Rx#:[id number] propofoL 1,000 mg In 54.015 Empty Bag 1 bag @ Titrate IV .Q0M MICHAEL Rx#: [id number] Oral 120 Output: Chest Tube Drainage 260 190 80 Left Pleural 150 100 40 Mediastinal x2 110 90 40 Urine 785 765 45 Estimated Blood Loss 800 Other: Voiding Method Indwelling Catheter Indwelling Catheter ABP, PAP, CO, CI - Last Documented Arterial Blood Pressure 120/62 Pulmonary Artery Pressure 34/12 Cardiac Output 3.2 Cardiac Index 1.6 - Exam CONSTITUTIONAL: Appears comfortable, cooperative, no acute distress RESPIRATORY: Lungs sounds diminished bilaterally. Respirations even, nonlabored. Currently on 2 L nasal cannula with oxygen saturation 96%. Able to achieve 500 mL on incentive spirometry. Weak cough. CARDIOVASCULAR: S1, S2 present. Regular rate and rhythm, sinus rhythm on telemetry. Sternum stable. Palpable peripheral pulses bilaterally. Trace generalized edema present. No calf pain or tenderness noted. Heart hugger in place with patient demonstrating appropriate use. Antiembolism stockings, SCDs present. GASTROINTESTINAL: Abdomen soft, nontender, nondistended. Hypoactive bowel sounds present 4 quadrants. Tolerating minimal clear liquids. Denies flatus GENITOURINARY: Shea present draining clear, yellow urine. Output overnight 30-70 mL per hour INTEGUMENTARY: Skin is warm and dry with evidence of good perfusion. Anterior chest incision well approximated and covered with dry intact dressing NEUROLOGIC: Cranial nerves II through XII intact MUSKULOSKELETAL: Able to move all extremities, strength equal bilaterally PSYCHIATRIC: Sleepy but does arouse, oriented to person place and time, flat af fect, intact judgment and insight INVASIVE LINES AND TUBES: Mediastinal/left pleural chest tubes present and connected to wall suction, no air leaks present. Mediastinal tube with 50 mL serosanguineous drainage overnight, 200 mL since surgery. Left pleural chest tube with 80 mL serosanguineous drainage overnight, 250 mL since surgery. A/V epicardial pacemaker wires present, connected to generator, VVI mode with backup rate 50 bpm. Right internal jugular [place], right radial arterial line present. Last CO/CI 3.6/1.8, PA 30/11, CVP 9. - Allied health notes Allied health notes reviewed: nursing - Labs CBC & Chem 7: 05/31/24 04:17 05/31/24 04:17 Labs: Abnormal Lab Results - Last 24 Hours (Table) 05/24/24 05/30/24 05/30/24 Range/Units 08:43 08:35 10:27 RBC (3.80-5.40) m/uL Hgb (11.4-16.0) gm/dL Hct (34.0-46.0) % RDW (11.5-15.5) % Plt Count (150-450) k/uL Neutrophils # (1.3-7.7) k/uL Lymphocytes # (1.0-4.8) k/uL ABG pH (7.35-7.45) ABG pCO2 (35-45) mmHg ABG pO2 131 H (83-108) mmHg ABG HCO3 20 L (21-25) mmol/L ABG Total CO2 (19-24) mmol/L ABG O2 Saturation 98.6 H (94-97) % ABG Hematocrit 31 L (34.0-46.0) % ABG Potassium 3.2 L (3.4-4.5) mmol/L ABG Ionized Calcium (4.5-5.3) mg/dL ABG Glucose 140 H (75-99) mg/dL ABG Lactic Acid (0.5-1.6) mmol/L Hemoglobin 10.2 L (11.4-16.0) gm/dL Chloride (98-107) mmol/L Carbon Dioxide (22-30) mmol/L Glucose (74-99) mg/dL POC Glucose (mg/dL) (70-110) mg/dL Calcium (8.4-10.2) mg/dL Magnesium (1.6-2.3) mg/dL Total Bilirubin (0.2-1.3) mg/dL AST (14-36) U/L Alkaline Phosphatase (38-126) U/L Total Protein (6.3-8.2) g/dL Albumin (3.5-5.0) g/dL Arterial Blood Potassium 3.2 L (3.4-4.5) mmol/L Arterial Blood Glucose 140 H (75-99) mg/dL Urine Protein Trace H (Negative) Urine Glucose (UA) 4+ H (Negative) Crossmatch See Detail 05/30/24 05/30/24 05/30/24 Range/Units 11:00 11:34 12:07 RBC (3.80-5.40) m/uL Hgb (11.4-16.0) gm/dL Hct (34.0-46.0) % RDW (11.5-15.5) % Plt Count (150-450) k/uL Neutrophils # (1.3-7.7) k/uL Lymphocytes # (1.0-4.8) k/uL ABG pH (7.35-7.45) ABG pCO2 (35-45) mmHg ABG pO2 387 H 264 H 369 H (83-108) mmHg ABG HCO3 (21-25) mmol/L ABG Total CO2 (19-24) mmol/L ABG O2 Saturation >99.4 H 99.2 H >99.4 H (94-97) % ABG Hematocrit 24 L 24 L 25 L (34.0-46.0) % ABG Potassium 3.1 L (3.4-4.5) mmol/L ABG Ionized Calcium 3.8 L 4.1 L 4.1 L (4.5-5.3) mg/dL ABG Glucose 136 H 168 H 175 H (75-99) mg/dL ABG Lactic Acid (0.5-1.6) mmol/L Hemoglobin 7.7 L 7.8 L 8.3 L (11.4-16.0) gm/dL Chloride (98-107) mmol/L Carbon Dioxide (22-30) mmol/L Glucose (74-99) mg/dL POC Glucose (mg/dL) (70-110) mg/dL Calcium (8.4-10.2) mg/dL Magnesium (1.6-2.3) mg/dL Total Bilirubin (0.2-1.3) mg/dL AST (14-36) U/L Alkaline Phosphatase (38-126) U/L Total Protein (6.3-8.2) g/dL Albumin (3.5-5.0) g/dL Arterial Blood Potassium 3.1 L (3.4-4.5) mmol/L Arterial Blood Glucose 136 H 168 H 175 H (75-99) mg/dL Urine Protein (Negative) Urine Glucose (UA) (Negative) Crossmatch 05/30/24 05/30/24 05/30/24 Range/Units 12:34 13:27 14:19 RBC (3.80-5.40) m/uL Hgb (11.4-16.0) gm/dL Hct (34.0-46.0) % RDW (11.5-15.5) % Plt Count (150-450) k/uL Neutrophils # (1.3-7.7) k/uL Lymphocytes # (1.0-4.8) k/uL ABG pH (7.35-7.45) ABG pCO2 (35-45) mmHg ABG pO2 267 H 271 H (83-108) mmHg ABG HCO3 (21-25) mmol/L ABG Total CO2 (19-24) mmol/L ABG O2 Saturation 98.7 H 99.1 H (94-97) % ABG Hematocrit 23 L 32 L (34.0-46.0) % ABG Potassium (3.4-4.5) mmol/L ABG Ionized Calcium 4.1 L (4.5-5.3) mg/dL ABG Glucose 172 H 150 H (75-99) mg/dL ABG Lactic Acid 1.7 H 2.4 H* (0.5-1.6) mmol/L Hemoglobin 7.6 L 10.5 L (11.4-16.0) gm/dL Chloride (98-107) mmol/L Carbon Dioxide (22-30) mmol/L Glucose (74-99) mg/dL POC Glucose (mg/dL) 132 H (70-110) mg/dL Calcium (8.4-10.2) mg/dL Magnesium (1.6-2.3) mg/dL Total Bilirubin (0.2-1.3) mg/dL AST (14-36) U/L Alkaline Phosphatase (38-126) U/L Total Protein (6.3-8.2) g/dL Albumin (3.5-5.0) g/dL Arterial Blood Potassium (3.4-4.5) mmol/L Arterial Blood Glucose 172 H 150 H (75-99) mg/dL Urine Protein (Negative) Urine Glucose (UA) (Negative) Crossmatch 05/30/24 05/30/24 05/30/24 Range/Units 14:30 14:30 14:43 RBC 3.76 L (3.80-5.40) m/uL Hgb 10.4 L (11.4-16.0) gm/dL Hct 31.7 L (34.0-46.0) % RDW 15.8 H (11.5-15.5) % Plt Count 108 L (150-450) k/uL Neutrophils # 8.1 H (1.3-7.7) k/uL Lymphocytes # 0.6 L (1.0-4.8) k/uL ABG pH 7.25 L (7.35-7.45) ABG pCO2 53 H (35-45) mmHg ABG pO2 318 H (83-108) mmHg ABG HCO3 (21-25) mmol/L ABG Total CO2 25 H (19-24) mmol/L ABG O2 Saturation 100.0 H (94-97) % ABG Hematocrit (34.0-46.0) % ABG Potassium (3.4-4.5) mmol/L ABG Ionized Calcium (4.5-5.3) mg/dL ABG Glucose (75-99) mg/dL ABG Lactic Acid (0.5-1.6) mmol/L Hemoglobin 10.7 L (11.4-16.0) gm/dL Chloride 110 H (98-107) mmol/L Carbon Dioxide 21 L (22-30) mmol/L Glucose 126 H (74-99) mg/dL POC Glucose (mg/dL) (70-110) mg/dL Calcium (8.4-10.2) mg/dL Magnesium 2.4 H (1.6-2.3) mg/dL Total Bilirubin 1.5 H (0.2-1.3) mg/dL AST 66 H (14-36) U/L Alkaline Phosphatase 31 L (38-126) U/L Total Protein 5.3 L (6.3-8.2) g/dL Albumin 3.3 L (3.5-5.0) g/dL Arterial Blood Potassium (3.4-4.5) mmol/L Arterial Blood Glucose (75-99) mg/dL Urine Protein (Negative) Urine Glucose (UA) (Negative) Crossmatch 05/30/24 05/30/24 05/30/24 Range/Units 15:21 16:19 16:27 RBC (3.80-5.40) m/uL Hgb 10.9 L (11.4-16.0) gm/dL Hct 33.1 L (34.0-46.0) % RDW 15.7 H (11.5-15.5) % Plt Count 110 L (150-450) k/uL Neutrophils # (1.3-7.7) k/uL Lymphocytes # 0.6 L (1.0-4.8) k/uL ABG pH (7.35-7.45) ABG pCO2 (35-45) mmHg ABG pO2 (83-108) mmHg ABG HCO3 (21-25) mmol/L ABG Total CO2 (19-24) mmol/L ABG O2 Saturation (94-97) % ABG Hematocrit (34.0-46.0) % ABG Potassium (3.4-4.5) mmol/L ABG Ionized Calcium (4.5-5.3) mg/dL ABG Glucose (75-99) mg/dL ABG Lactic Acid (0.5-1.6) mmol/L Hemoglobin (11.4-16.0) gm/dL Chloride (98-107) mmol/L Carbon Dioxide (22-30) mmol/L Glucose (74-99) mg/dL POC Glucose (mg/dL) 139 H 173 H (70-110) mg/dL Calcium (8.4-10.2) mg/dL Magnesium (1.6-2.3) mg/dL Total Bilirubin (0.2-1.3) mg/dL AST (14-36) U/L Alkaline Phosphatase (38-126) U/L Total Protein (6.3-8.2) g/dL Albumin (3.5-5.0) g/dL Arterial Blood Potassium (3.4-4.5) mmol/L Arterial Blood Glucose (75-99) mg/dL Urine Protein (Negative) Urine Glucose (UA) (Negative) Crossmatch 05/30/24 05/30/24 05/30/24 Range/Units 17:29 18:13 19:06 RBC (3.80-5.40) m/uL Hgb (11.4-16.0) gm/dL Hct (34.0-46.0) % RDW (11.5-15.5) % Plt Count (150-450) k/uL Neutrophils # (1.3-7.7) k/uL Lymphocytes # (1.0-4.8) k/uL ABG pH (7.35-7.45) ABG pCO2 (35-45) mmHg ABG pO2 (83-108) mmHg ABG HCO3 (21-25) mmol/L ABG Total CO2 (19-24) mmol/L ABG O2 Saturation (94-97) % ABG Hematocrit (34.0-46.0) % ABG Potassium (3.4-4.5) mmol/L ABG Ionized Calcium (4.5-5.3) mg/dL ABG Glucose (75-99) mg/dL ABG Lactic Acid (0.5-1.6) mmol/L Hemoglobin (11.4-16.0) gm/dL Chloride (98-107) mmol/L Carbon Dioxide (22-30) mmol/L Glucose (74-99) mg/dL POC Glucose (mg/dL) 200 H 175 H 185 H (70-110) mg/dL Calcium (8.4-10.2) mg/dL Magnesium (1.6-2.3) mg/dL Total Bilirubin (0.2-1.3) mg/dL AST (14-36) U/L Alkaline Phosphatase (38-126) U/L Total Protein (6.3-8.2) g/dL Albumin (3.5-5.0) g/dL Arterial Blood Potassium (3.4-4.5) mmol/L Arterial Blood Glucose (75-99) mg/dL Urine Protein (Negative) Urine Glucose (UA) (Negative) Crossmatch 05/30/24 05/30/24 05/30/24 Range/Units 19:35 19:45 20:06 RBC (3.80-5.40) m/uL Hgb (11.4-16.0) gm/dL Hct 33.8 L (34.0-46.0) % RDW 16.1 H (11.5-15.5) % Plt Count 123 L (150-450) k/uL Neutrophils # 8.4 H (1.3-7.7) k/uL Lymphocytes # 0.5 L (1.0-4.8) k/uL ABG pH (7.35-7.45) ABG pCO2 34 L (35-45) mmHg ABG pO2 76 L (83-108) mmHg ABG HCO3 (21-25) mmol/L ABG Total CO2 (19-24) mmol/L ABG O2 Saturation (94-97) % ABG Hematocrit (34.0-46.0) % ABG Potassium (3.4-4.5) mmol/L ABG Ionized Calcium (4.5-5.3) mg/dL ABG Glucose (75-99) mg/dL ABG Lactic Acid (0.5-1.6) mmol/L Hemoglobin (11.4-16.0) gm/dL Chloride (98-107) mmol/L Carbon Dioxide (22-30) mmol/L Glucose (74-99) mg/dL POC Glucose (mg/dL) 190 H (70-110) mg/dL Calcium (8.4-10.2) mg/dL Magnesium (1.6-2.3) mg/dL Total Bilirubin (0.2-1.3) mg/dL AST (14-36) U/L Alkaline Phosphatase (38-126) U/L Total Protein (6.3-8.2) g/dL Albumin (3.5-5.0) g/dL Arterial Blood Potassium (3.4-4.5) mmol/L Arterial Blood Glucose (75-99) mg/dL Urine Protein (Negative) Urine Glucose (UA) (Negative) Crossmatch 05/30/24 05/30/24 05/30/24 Range/Units 21:49 22:56 23:52 RBC (3.80-5.40) m/uL Hgb (11.4-16.0) gm/dL Hct (34.0-46.0) % RDW (11.5-15.5) % Plt Count (150-450) k/uL Neutrophils # (1.3-7.7) k/uL Lymphocytes # (1.0-4.8) k/uL ABG pH (7.35-7.45) ABG pCO2 (35-45) mmHg ABG pO2 (83-108) mmHg ABG HCO3 (21-25) mmol/L ABG Total CO2 (19-24) mmol/L ABG O2 Saturation (94-97) % ABG Hematocrit (34.0-46.0) % ABG Potassium (3.4-4.5) mmol/L ABG Ionized Calcium (4.5-5.3) mg/dL ABG Glucose (75-99) mg/dL ABG Lactic Acid (0.5-1.6) mmol/L Hemoglobin (11.4-16.0) gm/dL Chloride (98-107) mmol/L Carbon Dioxide (22-30) mmol/L Glucose (74-99) mg/dL POC Glucose (mg/dL) 181 H 164 H 155 H (70-110) mg/dL Calcium (8.4-10.2) mg/dL Magnesium (1.6-2.3) mg/dL Total Bilirubin (0.2-1.3) mg/dL AST (14-36) U/L Alkaline Phosphatase (38-126) U/L Total Protein (6.3-8.2) g/dL Albumin (3.5-5.0) g/dL Arterial Blood Potassium (3.4-4.5) mmol/L Arterial Blood Glucose (75-99) mg/dL Urine Protein (Negative) Urine Glucose (UA) (Negative) Crossmatch 05/31/24 05/31/24 05/31/24 Range/Units 00:58 01:58 03:09 RBC (3.80-5.40) m/uL Hgb (11.4-16.0) gm/dL Hct (34.0-46.0) % RDW (11.5-15.5) % Plt Count (150-450) k/uL Neutrophils # (1.3-7.7) k/uL Lymphocytes # (1.0-4.8) k/uL ABG pH (7.35-7.45) ABG pCO2 (35-45) mmHg ABG pO2 (83-108) mmHg ABG HCO3 (21-25) mmol/L ABG Total CO2 (19-24) mmol/L ABG O2 Saturation (94-97) % ABG Hematocrit (34.0-46.0) % ABG Potassium (3.4-4.5) mmol/L ABG Ionized Calcium (4.5-5.3) mg/dL ABG Glucose (75-99) mg/dL ABG Lactic Acid (0.5-1.6) mmol/L Hemoglobin (11.4-16.0) gm/dL Chloride (98-107) mmol/L Carbon Dioxide (22-30) mmol/L Glucose (74-99) mg/dL POC Glucose (mg/dL) 151 H 139 H 131 H (70-110) mg/dL Calcium (8.4-10.2) mg/dL Magnesium (1.6-2.3) mg/dL Total Bilirubin (0.2-1.3) mg/dL AST (14-36) U/L Alkaline Phosphatase (38-126) U/L Total Protein (6.3-8.2) g/dL Albumin (3.5-5.0) g/dL Arterial Blood Potassium (3.4-4.5) mmol/L Arterial Blood Glucose (75-99) mg/dL Urine Protein (Negative) Urine Glucose (UA) (Negative) Crossmatch 05/31/24 05/31/24 05/31/24 Range/Units 04:02 04:17 04:17 RBC (3.80-5.40) m/uL Hgb 10.5 L (11.4-16.0) gm/dL Hct 32.4 L (34.0-46.0) % RDW 16.2 H (11.5-15.5) % Plt Count 121 L (150-450) k/uL Neutrophils # 7.8 H (1.3-7.7) k/uL Lymphocytes # 0.8 L (1.0-4.8) k/uL ABG pH (7.35-7.45) ABG pCO2 (35-45) mmHg ABG pO2 (83-108) mmHg ABG HCO3 (21-25) mmol/L ABG Total CO2 (19-24) mmol/L ABG O2 Saturation (94-97) % ABG Hematocrit (34.0-46.0) % ABG Potassium (3.4-4.5) mmol/L ABG Ionized Calcium (4.5-5.3) mg/dL ABG Glucose (75-99) mg/dL ABG Lactic Acid (0.5-1.6) mmol/L Hemoglobin (11.4-16.0) gm/dL Chloride 108 H (98-107) mmol/L Carbon Dioxide (22-30) mmol/L Glucose 115 H (74-99) mg/dL POC Glucose (mg/dL) 121 H (70-110) mg/dL Calcium 8.2 L (8.4-10.2) mg/dL Magnesium (1.6-2.3) mg/dL Total Bilirubin (0.2-1.3) mg/dL AST 55 H (14-36) U/L Alkaline Phosphatase (38-126) U/L Total Protein 5.6 L (6.3-8.2) g/dL Albumin (3.5-5.0) g/dL Arterial Blood Potassium (3.4-4.5) mmol/L Arterial Blood Glucose (75-99) mg/dL Urine Protein (Negative) Urine Glucose (UA) (Negative) Crossmatch 05/31/24 05/31/24 05/31/24 Range/Units 05:52 06:52 08:37 RBC (3.80-5.40) m/uL Hgb (11.4-16.0) gm/dL Hct (34.0-46.0) % RDW (11.5-15.5) % Plt Count (150-450) k/uL Neutrophils # (1.3-7.7) k/uL Lymphocytes # (1.0-4.8) k/uL ABG pH (7.35-7.45) ABG pCO2 (35-45) mmHg ABG pO2 (83-108) mmHg ABG HCO3 (21-25) mmol/L ABG Total CO2 (19-24) mmol/L ABG O2 Saturation (94-97) % ABG Hematocrit (34.0-46.0) % ABG Potassium (3.4-4.5) mmol/L ABG Ionized Calcium (4.5-5.3) mg/dL ABG Glucose (75-99) mg/dL ABG Lactic Acid (0.5-1.6) mmol/L Hemoglobin (11.4-16.0) gm/dL Chloride (98-107) mmol/L Carbon Dioxide (22-30) mmol/L Glucose (74-99) mg/dL POC Glucose (mg/dL) 127 H 124 H 113 H (70-110) mg/dL Calcium (8.4-10.2) mg/dL Magnesium (1.6-2.3) mg/dL Total Bilirubin (0.2-1.3) mg/dL AST (14-36) U/L Alkaline Phosphatase (38-126) U/L Total Protein (6.3-8.2) g/dL Albumin (3.5-5.0) g/dL Arterial Blood Potassium (3.4-4.5) mmol/L Arterial Blood Glucose (75-99) mg/dL Urine Protein (Negative) Urine Glucose (UA) (Negative) Crossmatch - Imaging and Cardiology Chest x-ray: report reviewed, image reviewed Assessment and Plan Assessment: Severe bicuspid aortic valve stenosis with fusion of the right and the left cusps, S/P aortic valve replacement Coronary artery disease status with previous myocardial infarction post prior stenting to the left anterior descending artery with moderate proximal LAD stenosis, S/P single coronary artery bypass grafting Postoperative acute blood loss anemia and thrombocytopenia, expected given hemodilution and cardiopulmonary bypass pump History of hypertension Hyperlipidemia, cholesterol 251, triglycerides 267, LDL 169 Insulin-dependent diabetes mellitus, preoperative hemoglobin A1c 7.5% TIA a few years ago Obesity Obstructive sleep apnea using CPAP COPD/asthma, preoperative FEV1 82% of predicted Hypothyroidism, preoperative TSH 0.406 Anxiety disorder Previous tobacco dependence Occasional marijuana use Family history of premature coronary artery disease with father diagnosed in his 50s Preoperative urinary tract infection with E. coli, treated Preoperative nasal swab positive for MSSA, treated Plan: Continue to maximize medical therapy with aspirin, statin, Plavix, beta-neris. Will increase beta-neris therapy as tolerated, increased to 25 mg twice daily today Continue amiodarone for A-fib prophylaxis, will transition to oral. Patient has had no atrial fibrillation up to this point Will add low-dose Cozaar for afterload reduction Wean O2 as he did. Encourage incentive spirometry use 10 times every hour while awake. Bronchodilators per pulmonology Will monitor daily labs and x-rays, electrolyte replacement per protocol Increase activity, ambulate as tolerated. PT/OT/cardiac rehab consulted GI/DVT prophylaxis Pain control per current medication regimen. Hold narcotics while patient is so sleepy Insulin management per internal medicine. Patient needs to remain on continuous IV insulin for minimum 48 hours, then may transition to subcutaneous insulin per protocol Will give IV albumin to improve CO/CI, will discontinue [place] later this afternoon Continue chest tubes for another 24 hours, continue to monitor output Continue Shea catheter for another 24 hours, continue to monitor and record s trict accurate intake and output Daily weights More recommendations to follow as patient progresses
[2024-05-31 10:21] LABS: Glucose,Whole Blood 177 mg/dL (70-110)
[2024-05-31] MEDS: LOSARTAN 25 MG TAB PO SCH (11:28)
[2024-05-31 11:47] LABS: Glucose,Whole Blood 163 mg/dL (70-110)
[2024-05-31 12:43] LABS: Glucose,Whole Blood 146 mg/dL (70-110)
[2024-05-31 13:15] LABS: Glucose,Whole Blood 158 mg/dL (70-110)
[2024-05-31 13:16] LABS: ABG Base Excess -4.9 mmol/L; ABG HCO3 23 mmol/L (21-25); ABG Oxygen Saturation 42.8 % (94-97); ABG PCO2 54 mmHg (35-45); ABG PH 7.23 (7.35-7.45); ABG TCO2 25 mmol/L (19-24)
[2024-05-31 13:20] LABS: ABG PO2 <30 mmHg (83-108); Allen Test Performed? no
[2024-05-31 13:23] LABS: ABG Base Excess -5.7 mmol/L; ABG HCO3 21 mmol/L (21-25); ABG Oxygen Saturation 95.9 % (94-97); ABG PCO2 47 mmHg (35-45); ABG PH 7.27 (7.35-7.45); ABG PO2 81 mmHg (83-108); ABG TCO2 23 mmol/L (19-24); Allen Test Performed? no
--- NOTE | 2024-05-31 13:23 | P.PN ---
Subjective Progress Note Date: 05/31/24 This is a 54-year-old female patient was being seen in the intensive care unit following her cardiac surgery. Patient underwent a aortic valve replacement as the patient was found to have severe aortic stenosis with a bicuspid aortic valve and the patient underwent a single-vessel bypass surgery. Her cardiac catheterization was done on 10/06/2023 and the patient has 50% stenosis of the LAD. Echocardiogram revealed bicuspid aortic valve with a preserved LV function with an ejection fraction of 55 to 60%. At this point in time, the patient is sedated on propofol and the patient is calm and comfortable. Intubated on mechanical ventilator. She is on assist-control mode of mechanical ventilation at rate of 14, tidal volume of 350, FiO2 of 100% and a PEEP of 10. The patient has 3 different chest tubes in place, mediastinal and left pleural. The chest x-ray shows no evidence of any pneumothorax. ET tube is in a good location. No significant atelectatic changes. There are some increased perihilar pulmonary vascular markings. No evidence of any pneumothorax. Hemodynamically stable. Cardiac output is at 4.7 with an index of 2.4 and the PA pressure 29/17 with a CVP of 9. Cardiac rhythm is sinus. Adequate urine output. No other significant events reported postop. WBC was at 9.1 with hemoglobin 10.7 and a platelet count of 102. Blood gas showed a pH of 7.25 with a pCO2 of 53 and pO2 of 318. The BUN is 16 with a creatinine of 0.6 and a sodium levels at 138 and a bicarb level is at 21 with a potassium level of 4.0 05/31/2024, patient is being seen for a follow-up. The patient was weaned off the mechanical ventilator and patient was extubated to BiPAP and currently she is on oxygen at 2 L/min nasal cannula. She is postop day #1 and she is awake and alert and sitting up in a chair. Her cardiac output is at 3.6 with an index of 1.8. PA pressures are 33/13 and a CVP is 11. She is having some lower urine output and lower blood pressure. Based on that, the patient is being given IV albumin. Chest tubes are in place. The patient has 2 mediastinal chest tube and a pleural chest tube on the left and output has been in the order of 20 to 30 cc an hour. No evidence of any air leak. Chest x-ray from today shows no evidence of any pneumothorax, [place] catheter in place and the patient continues to have some atelectatic changes left lung base. Cardiac rhythm is sinus. WBC count is at 9.4 with a hemoglobin 10.5 and a platelet count of 121. The BUN is 15 with a creatinine of 0.72 and a sodium levels at 140. The patient is awake and alert and communicating. No other significant events overnight. The patient is using the incentive spirometer and she is pulling approximately 500 cc on her incentive spirometer. No other significant events overnight. Objective - Vital Signs Vital signs: Vital Signs Temp 99.7 F H 05/31/24 04:00 Pulse 80 05/31/24 08:30 Resp 23 05/31/24 08:30 BP 115/77 05/31/24 08:30 Pulse Ox 96 05/31/24 08:30 FiO2 30 05/31/24 04:45 Intake & Output 05/30/24 05/31/24 05/31/24 18:59 06:59 18:59 Intake Total 109.463 7752.955 397.889 Output Total 1845 955 75 Balance -9333.980 4849.955 322.889 Weight 100.8 kg Intake: IV 448 2168 388 Albumin Human 5% 250 ml 750 250 In Empty Bag 1 bag @ 250 mls/hr IVPB Q1HR PRN Rx#: [id number] Injectate 150 210 20 Pressure Bags 45 108 18 Sodium Chloride 0.9% 1, 250 600 100 000 ml @ 30 mls/hr IV . Q24H [facility] Rx#:[id number] Vancomycin 1,500 mg In 500 Sodium Chloride 0.9% 500 ml 500 ml @ 167 mls/hr IVPB Q12HR [facility] Rx#: [id number] Intake, IV Titration 10.538 149.955 9.889 Amount Clevidipine Butyrate 25 15.367 mg In Empty Bag 1 bag @ 1 MG/HR 2 mls/hr IV .Q24H PRN Rx#:[id number] Insulin Regular 100 unit 10.538 80.573 9.889 In Sodium Chloride 0.9% 100 ml @ Per Protocol IV .Q0M [facility] Rx#:[id number] propofoL 1,000 mg In 54.015 Empty Bag 1 bag @ Titrate IV .Q0M [facility] Rx#: [id number] Oral 120 Output: Chest Tube Drainage 260 190 50 Left Pleural 150 100 20 Mediastinal x2 110 90 30 Urine 785 765 25 Estimated Blood Loss 800 Other: Voiding Method Indwelling Catheter Indwelling Catheter ABP, PAP, CO, CI - Last Documented Arterial Blood Pressure 114/58 Pulmonary Artery Pressure 38/16 Cardiac Output 3.6 Cardiac Index 1.8 - Exam CONSTITUTIONAL: Appears comfortable, cooperative, no acute distress RESPIRATORY: Lungs sounds diminished bilaterally. Respirations even, nonlabor ed. Currently on 2 L nasal cannula with oxygen saturation 96%. Able to achieve 500 mL on incentive spirometry. Weak cough. CARDIOVASCULAR: S1, S2 present. Regular rate and rhythm, sinus rhythm on telemetry. Sternum stable. Palpable peripheral pulses bilaterally. Trace generalized edema present. No calf pain or tenderness noted. Heart hugger in place with patient demonstrating appropriate use. Antiembolism stockings, SCDs present. GASTROINTESTINAL: Abdomen soft, nontender, nondistended. Hypoactive bowel sounds present 4 quadrants. Tolerating minimal clear liquids. Denies flatus GENITOURINARY: Shea present draining clear, yellow urine. Output overnight 30-70 mL per hour INTEGUMENTARY: Skin is warm and dry with evidence of good perfusion. Anterior chest incision well approximated and covered with dry intact dressing NEUROLOGIC: Cranial nerves II through XII intact MUSKULOSKELETAL: Able to move all extremities, strength equal bilaterally PSYCHIATRIC: Sleepy but does arouse, oriented to person place and time, flat affect, intact judgment and insight INVASIVE LINES AND TUBES: Mediastinal/left pleural chest tubes present and connected to wall suction, no air leaks present. Mediastinal tube with 50 mL serosanguineous drainage overnight, 200 mL since surgery. Left pleural chest tube with 80 mL serosanguineous drainage overnight, 250 mL since surgery. A/V epicardial pacemaker wires present, connected to generator, VVI mode with backup rate 50 bpm. Right internal jugular [place], right radial arterial line present. Last CO/CI 3.6/1.8, PA 30/11, CVP 9. - Labs CBC & Chem 7: 05/31/24 04:17 05/31/24 04:17 Labs: Abnormal Lab Results - Last 24 Hours (Table) 05/24/24 05/30/24 05/30/24 Range/Units 08:43 08:35 10:27 RBC (3.80-5.40) m/uL Hgb (11.4-16.0) gm/dL Hct (34.0-46.0) % RDW (11.5-15.5) % Plt Count (150-450) k/uL Neutrophils # (1.3-7.7) k/uL Lymphocytes # (1.0-4.8) k/uL ABG pH (7.35-7.45) ABG pCO2 (35-45) mmHg ABG pO2 131 H (83-108) mmHg ABG HCO3 20 L (21-25) mmol/L ABG Total CO2 (19-24) mmol/L ABG O2 Saturation 98.6 H (94-97) % ABG Hematocrit 31 L (34.0-46.0) % ABG Potassium 3.2 L (3.4-4.5) mmol/L ABG Ionized Calcium (4.5-5.3) mg/dL ABG Glucose 140 H (75-99) mg/dL ABG Lactic Acid (0.5-1.6) mmol/L Hemoglobin 10.2 L (11.4-16.0) gm/dL Chloride (98-107) mmol/L Carbon Dioxide (22-30) mmol/L Glucose (74-99) mg/dL POC Glucose (mg/dL) (70-110) mg/dL Calcium (8.4-10.2) mg/dL Magnesium (1.6-2.3) mg/dL Total Bilirubin (0.2-1.3) mg/dL AST (14-36) U/L Alkaline Phosphatase (38-126) U/L Total Protein (6.3-8.2) g/dL Albumin (3.5-5.0) g/dL Arterial Blood Potassium 3.2 L (3.4-4.5) mmol/L Arterial Blood Glucose 140 H (75-99) mg/dL Urine Protein Trace H (Negative) Urine Glucose (UA) 4+ H (Negative) Crossmatch See Detail 05/30/24 05/30/24 05/30/24 Range/Units 11:00 11:34 12:07 RBC (3.80-5.40) m/uL Hgb (11.4-16.0) gm/dL Hct (34.0-46.0) % RDW (11.5-15.5) % Plt Count (150-450) k/uL Neutrophils # (1.3-7.7) k/uL Lymphocytes # (1.0-4.8) k/uL ABG pH (7.35-7.45) ABG pCO2 (35-45) mmHg ABG pO2 387 H 264 H 369 H (83-108) mmHg ABG HCO3 (21-25) mmol/L ABG Total CO2 (19-24) mmol/L ABG O2 Saturation >99.4 H 99.2 H >99.4 H (94-97) % ABG Hematocrit 24 L 24 L 25 L (34.0-46.0) % ABG Potassium 3.1 L (3.4-4.5) mmol/L ABG Ionized Calcium 3.8 L 4.1 L 4.1 L (4.5-5.3) mg/dL ABG Glucose 136 H 168 H 175 H (75-99) mg/dL ABG Lactic Acid (0.5-1.6) mmol/L Hemoglobin 7.7 L 7.8 L 8.3 L (11.4-16.0) gm/dL Chloride (98-107) mmol/L Carbon Dioxide (22-30) mmol/L Glucose (74-99) mg/dL POC Glucose (mg/dL) (70-110) mg/dL Calcium (8.4-10.2) mg/dL Magnesium (1.6-2.3) mg/dL Total Bilirubin (0.2-1.3) mg/dL AST (14-36) U/L Alkaline Phosphatase (38-126) U/L Total Protein (6.3-8.2) g/dL Albumin (3.5-5.0) g/dL Arterial Blood Potassium 3.1 L (3.4-4.5) mmol/L Arterial Blood Glucose 136 H 168 H 175 H (75-99) mg/dL Urine Protein (Negative) Urine Glucose (UA) (Negative) Crossmatch 05/30/24 05/30/24 05/30/24 Range/Units 12:34 13:27 14:19 RBC (3.80-5.40) m/uL Hgb (11.4-16.0) gm/dL Hct (34.0-46.0) % RDW (11.5-15.5) % Plt Count (150-450) k/uL Neutrophils # (1.3-7.7) k/uL Lymphocytes # (1.0-4.8) k/uL ABG pH (7.35-7.45) ABG pCO2 (35-45) mmHg ABG pO2 267 H 271 H (83-108) mmHg ABG HCO3 (21-25) mmol/L ABG Total CO2 (19-24) mmol/L ABG O2 Saturation 98.7 H 99.1 H (94-97) % ABG Hematocrit 23 L 32 L (34.0-46.0) % ABG Potassium (3.4-4.5) mmol/L ABG Ionized Calcium 4.1 L (4.5-5.3) mg/dL ABG Glucose 172 H 150 H (75-99) mg/dL ABG Lactic Acid 1.7 H 2.4 H* (0.5-1.6) mmol/L Hemoglobin 7.6 L 10.5 L (11.4-16.0) gm/dL Chloride (98-107) mmol/L Carbon Dioxide (22-30) mmol/L Glucose (74-99) mg/dL POC Glucose (mg/dL) 132 H (70-110) mg/dL Calcium (8.4-10.2) mg/dL Magnesium (1.6-2.3) mg/dL Total Bilirubin (0.2-1.3) mg/dL AST (14-36) U/L Alkaline Phosphatase (38-126) U/L Total Protein (6.3-8.2) g/dL Albumin (3.5-5.0) g/dL Arterial Blood Potassium (3.4-4.5) mmol/L Arterial Blood Glucose 172 H 150 H (75-99) mg/dL Urine Protein (Negative) Urine Glucose (UA) (Negative) Crossmatch 05/30/24 05/30/24 05/30/24 Range/Units 14:30 14:30 14:43 RBC 3.76 L (3.80-5.40) m/uL Hgb 10.4 L (11.4-16.0) gm/dL Hct 31.7 L (34.0-46.0) % RDW 15.8 H (11.5-15.5) % Plt Count 108 L (150-450) k/uL Neutrophils # 8.1 H (1.3-7.7) k/uL Lymphocytes # 0.6 L (1.0-4.8) k/uL ABG pH 7.25 L (7.35-7.45) ABG pCO2 53 H (35-45) mmHg ABG pO2 318 H (83-108) mmHg ABG HCO3 (21-25) mmol/L ABG Total CO2 25 H (19-24) mmol/L ABG O2 Saturation 100.0 H (94-97) % ABG Hematocrit (34.0-46.0) % ABG Potassium (3.4-4.5) mmol/L ABG Ionized Calcium (4.5-5.3) mg/dL ABG Glucose (75-99) mg/dL ABG Lactic Acid (0.5-1.6) mmol/L Hemoglobin 10.7 L (11.4-16.0) gm/dL Chloride 110 H (98-107) mmol/L Carbon Dioxide 21 L (22-30) mmol/L Glucose 126 H (74-99) mg/dL POC Glucose (mg/dL) (70-110) mg/dL Calcium (8.4-10.2) mg/dL Magnesium 2.4 H (1.6-2.3) mg/dL Total Bilirubin 1.5 H (0.2-1.3) mg/dL AST 66 H (14-36) U/L Alkaline Phosphatase 31 L (38-126) U/L Total Protein 5.3 L (6.3-8.2) g/dL Albumin 3.3 L (3.5-5.0) g/dL Arterial Blood Potassium (3.4-4.5) mmol/L Arterial Blood Glucose (75-99) mg/dL Urine Protein (Negative) Urine Glucose (UA) (Negative) Crossmatch 05/30/24 05/30/24 05/30/24 Range/Units 15:21 16:19 16:27 RBC (3.80-5.40) m/uL Hgb 10.9 L (11.4-16.0) gm/dL Hct 33.1 L (34.0-46.0) % RDW 15.7 H (11.5-15.5) % Plt Count 110 L (150-450) k/uL Neutrophils # (1.3-7.7) k/uL Lymphocytes # 0.6 L (1.0-4.8) k/uL ABG pH (7.35-7.45) ABG pCO2 (35-45) mmHg ABG pO2 (83-108) mmHg ABG HCO3 (21-25) mmol/L ABG Total CO2 (19-24) mmol/L ABG O2 Saturation (94-97) % ABG Hematocrit (34.0-46.0) % ABG Potassium (3.4-4.5) mmol/L ABG Ionized Calcium (4.5-5.3) mg/dL ABG Glucose (75-99) mg/dL ABG Lactic Acid (0.5-1.6) mmol/L Hemoglobin (11.4-16.0) gm/dL Chloride (98-107) mmol/L Carbon Dioxide (22-30) mmol/L Glucose (74-99) mg/dL POC Glucose (mg/dL) 139 H 173 H (70-110) mg/dL Calcium (8.4-10.2) mg/dL Magnesium (1.6-2.3) mg/dL Total Bilirubin (0.2-1.3) mg/dL AST (14-36) U/L Alkaline Phosphatase (38-126) U/L Total Protein (6.3-8.2) g/dL Albumin (3.5-5.0) g/dL Arterial Blood Potassium (3.4-4.5) mmol/L Arterial Blood Glucose (75-99) mg/dL Urine Protein (Negative) Urine Glucose (UA) (Negative) Crossmatch 05/30/24 05/30/24 05/30/24 Range/Units 17:29 18:13 19:06 RBC (3.80-5.40) m/uL Hgb (11.4-16.0) gm/dL Hct (34.0-46.0) % RDW (11.5-15.5) % Plt Count (150-450) k/uL Neutrophils # (1.3-7.7) k/uL Lymphocytes # (1.0-4.8) k/uL ABG pH (7.35-7.45) ABG pCO2 (35-45) mmHg ABG pO2 (83-108) mmHg ABG HCO3 (21-25) mmol/L ABG Total CO2 (19-24) mmol/L ABG O2 Saturation (94-97) % ABG Hematocrit (34.0-46.0) % ABG Potassium (3.4-4.5) mmol/L ABG Ionized Calcium (4.5-5.3) mg/dL ABG Glucose (75-99) mg/dL ABG Lactic Acid (0.5-1.6) mmol/L Hemoglobin (11.4-16.0) gm/dL Chloride (98-107) mmol/L Carbon Dioxide (22-30) mmol/L Glucose (74-99) mg/dL POC Glucose (mg/dL) 200 H 175 H 185 H (70-110) mg/dL Calcium (8.4-10.2) mg/dL Magnesium (1.6-2.3) mg/dL Total Bilirubin (0.2-1.3) mg/dL AST (14-36) U/L Alkaline Phosphatase (38-126) U/L Total Protein (6.3-8.2) g/dL Albumin (3.5-5.0) g/dL Arterial Blood Potassium (3.4-4.5) mmol/L Arterial Blood Glucose (75-99) mg/dL Urine Protein (Negative) Urine Glucose (UA) (Negative) Crossmatch 05/30/24 05/30/24 05/30/24 Range/Units 19:35 19:45 20:06 RBC (3.80-5.40) m/uL Hgb (11.4-16.0) gm/dL Hct 33.8 L (34.0-46.0) % RDW 16.1 H (11.5-15.5) % Plt Count 123 L (150-450) k/uL Neutrophils # 8.4 H (1.3-7.7) k/uL Lymphocytes # 0.5 L (1.0-4.8) k/uL ABG pH (7.35-7.45) ABG pCO2 34 L (35-45) mmHg ABG pO2 76 L (83-108) mmHg ABG HCO3 (21-25) mmol/L ABG Total CO2 (19-24) mmol/L ABG O2 Saturation (94-97) % ABG Hematocrit (34.0-46.0) % ABG Potassium (3.4-4.5) mmol/L ABG Ionized Calcium (4.5-5.3) mg/dL ABG Glucose (75-99) mg/dL ABG Lactic Acid (0.5-1.6) mmol/L Hemoglobin (11.4-16.0) gm/dL Chloride (98-107) mmol/L Carbon Dioxide (22-30) mmol/L Glucose (74-99) mg/dL POC Glucose (mg/dL) 190 H (70-110) mg/dL Calcium (8.4-10.2) mg/dL Magnesium (1.6-2.3) mg/dL Total Bilirubin (0.2-1.3) mg/dL AST (14-36) U/L Alkaline Phosphatase (38-126) U/L Total Protein (6.3-8.2) g/dL Albumin (3.5-5.0) g/dL Arterial Blood Potassium (3.4-4.5) mmol/L Arterial Blood Glucose (75-99) mg/dL Urine Protein (Negative) Urine Glucose (UA) (Negative) Crossmatch 05/30/24 05/30/24 05/30/24 Range/Units 21:49 22:56 23:52 RBC (3.80-5.40) m/uL Hgb (11.4-16.0) gm/dL Hct (34.0-46.0) % RDW (11.5-15.5) % Plt Count (150-450) k/uL Neutrophils # (1.3-7.7) k/uL Lymphocytes # (1.0-4.8) k/uL ABG pH (7.35-7.45) ABG pCO2 (35-45) mmHg ABG pO2 (83-108) mmHg ABG HCO3 (21-25) mmol/L ABG Total CO2 (19-24) mmol/L ABG O2 Saturation (94-97) % ABG Hematocrit (34.0-46.0) % ABG Potassium (3.4-4.5) mmol/L ABG Ionized Calcium (4.5-5.3) mg/dL ABG Glucose (75-99) mg/dL ABG Lactic Acid (0.5-1.6) mmol/L Hemoglobin (11.4-16.0) gm/dL Chloride (98-107) mmol/L Carbon Dioxide (22-30) mmol/L Glucose (74-99) mg/dL POC Glucose (mg/dL) 181 H 164 H 155 H (70-110) mg/dL Calcium (8.4-10.2) mg/dL Magnesium (1.6-2.3) mg/dL Total Bilirubin (0.2-1.3) mg/dL AST (14-36) U/L Alkaline Phosphatase (38-126) U/L Total Protein (6.3-8.2) g/dL Albumin (3.5-5.0) g/dL Arterial Blood Potassium (3.4-4.5) mmol/L Arterial Blood Glucose (75-99) mg/dL Urine Protein (Negative) Urine Glucose (UA) (Negative) Crossmatch 05/31/24 05/31/24 05/31/24 Range/Units 00:58 01:58 03:09 RBC (3.80-5.40) m/uL Hgb (11.4-16.0) gm/dL Hct (34.0-46.0) % RDW (11.5-15.5) % Plt Count (150-450) k/uL Neutrophils # (1.3-7.7) k/uL Lymphocytes # (1.0-4.8) k/uL ABG pH (7.35-7.45) ABG pCO2 (35-45) mmHg ABG pO2 (83-108) mmHg ABG HCO3 (21-25) mmol/L ABG Total CO2 (19-24) mmol/L ABG O2 Saturation (94-97) % ABG Hematocrit (34.0-46.0) % ABG Potassium (3.4-4.5) mmol/L ABG Ionized Calcium (4.5-5.3) mg/dL ABG Glucose (75-99) mg/dL ABG Lactic Acid (0.5-1.6) mmol/L Hemoglobin (11.4-16.0) gm/dL Chloride (98-107) mmol/L Carbon Dioxide (22-30) mmol/L Glucose (74-99) mg/dL POC Glucose (mg/dL) 151 H 139 H 131 H (70-110) mg/dL Calcium (8.4-10.2) mg/dL Magnesium (1.6-2.3) mg/dL Total Bilirubin (0.2-1.3) mg/dL AST (14-36) U/L Alkaline Phosphatase (38-126) U/L Total Protein (6.3-8.2) g/dL Albumin (3.5-5.0) g/dL Arterial Blood Potassium (3.4-4.5) mmol/L Arterial Blood Glucose (75-99) mg/dL Urine Protein (Negative) Urine Glucose (UA) (Negative) Crossmatch 05/31/24 05/31/24 05/31/24 Range/Units 04:02 04:17 04:17 RBC (3.80-5.40) m/uL Hgb 10.5 L (11.4-16.0) gm/dL Hct 32.4 L (34.0-46.0) % RDW 16.2 H (11.5-15.5) % Plt Count 121 L (150-450) k/uL Neutrophils # 7.8 H (1.3-7.7) k/uL Lymphocytes # 0.8 L (1.0-4.8) k/uL ABG pH (7.35-7.45) ABG pCO2 (35-45) mmHg ABG pO2 (83-108) mmHg ABG HCO3 (21-25) mmol/L ABG Total CO2 (19-24) mmol/L ABG O2 Saturation (94-97) % ABG Hematocrit (34.0-46.0) % ABG Potassium (3.4-4.5) mmol/L ABG Ionized Calcium (4.5-5.3) mg/dL ABG Glucose (75-99) mg/dL ABG Lactic Acid (0.5-1.6) mmol/L Hemoglobin (11.4-16.0) gm/dL Chloride 108 H (98-107) mmol/L Carbon Dioxide (22-30) mmol/L Glucose 115 H (74-99) mg/dL POC Glucose (mg/dL) 121 H (70-110) mg/dL Calcium 8.2 L (8.4-10.2) mg/dL Magnesium (1.6-2.3) mg/dL Total Bilirubin (0.2-1.3) mg/dL AST 55 H (14-36) U/L Alkaline Phosphatase (38-126) U/L Total Protein 5.6 L (6.3-8.2) g/dL Albumin (3.5-5.0) g/dL Arterial Blood Potassium (3.4-4.5) mmol/L Arterial Blood Glucose (75-99) mg/dL Urine Protein (Negative) Urine Glucose (UA) (Negative) Crossmatch 05/31/24 05/31/24 05/31/24 Range/Units 05:52 06:52 08:37 RBC (3.80-5.40) m/uL Hgb (11.4-16.0) gm/dL Hct (34.0-46.0) % RDW (11.5-15.5) % Plt Count (150-450) k/uL Neutrophils # (1.3-7.7) k/uL Lymphocytes # (1.0-4.8) k/uL ABG pH (7.35-7.45) ABG pCO2 (35-45) mmHg ABG pO2 (83-108) mmHg ABG HCO3 (21-25) mmol/L ABG Total CO2 (19-24) mmol/L ABG O2 Saturation (94-97) % ABG Hematocrit (34.0-46.0) % ABG Potassium (3.4-4.5) mmol/L ABG Ionized Calcium (4.5-5.3) mg/dL ABG Glucose (75-99) mg/dL ABG Lactic Acid (0.5-1.6) mmol/L Hemoglobin (11.4-16.0) gm/dL Chloride (98-107) mmol/L Carbon Dioxide (22-30) mmol/L Glucose (74-99) mg/dL POC Glucose (mg/dL) 127 H 124 H 113 H (70-110) mg/dL Calcium (8.4-10.2) mg/dL Magnesium (1.6-2.3) mg/dL Total Bilirubin (0.2-1.3) mg/dL AST (14-36) U/L Alkaline Phosphatase (38-126) U/L Total Protein (6.3-8.2) g/dL Albumin (3.5-5.0) g/dL Arterial Blood Potassium (3.4-4.5) mmol/L Arterial Blood Glucose (75-99) mg/dL Urine Protein (Negative) Urine Glucose (UA) (Negative) Crossmatch Assessment and Plan Plan: Post aortic valve replacement and single-vessel bypass surgery. The patient is currently postop day #1. Postthoracotomy, extubated and the patient is currently on 2 L of oxygen nasal cannula Bicuspid aortic valve with severe aortic stenosis and preserved LV function Coronary artery disease with previous PCI to LAD that was done in January 2023 Morbid obesity with obstructive sleep apnea Hypertension Diabetes mellitus type 2 Hyperlipidemia History of COPD/asthma Peripheral neuropathy involving the lower extremities bilaterally Anemia of chronic disease Stage I chronic kidney disease Lumbar disc disease Previous history of TIA Plan Continue using incentive spirometer Monitor hemodynamic parameters and the patient is currently on no pressors, noted lower urine output in the lower cardiac index and the patient is being given IV albumin. Will increase beta-neris therapy as tolerated, increased to 25 mg twice daily today Continue amiodarone for A-fib prophylaxis, will transition to oral. Patient has had no atrial fibrillation up to this point Monitor the cardiac output and index Insulin drip for blood sugar control Cardiac rhythm is sinus No pressors for now Continue utilizing BiPAP overnight and asked the patient to bring in her own CPAP machine from home Will continue monitoring the patient's progress and make further recommendations.
[2024-05-31] MEDS: MILRINONE-D5W PMX 20 MG in DEXTROSE/WATER 1 100ML.BAG IV SCH ×2 (13:45→19:00)
[2024-05-31 14:11] LABS: Glucose,Whole Blood 167 mg/dL (70-110)
[2024-05-31 15:47] LABS: Glucose,Whole Blood 110 mg/dL (70-110)
[2024-05-31 15:55] LABS: ABG HCO3 22 mmol/L (21-25); ABG Oxygen Saturation 96.6 % (94-97); ABG PCO2 45 mmHg (35-45); ABG PO2 84 mmHg (83-108); ABG TCO2 24 mmol/L (19-24)
[2024-05-31 15:56] LABS: ABG Base Excess -3.5 mmol/L; ABG HCO3 24 mmol/L (21-25); ABG Oxygen Saturation 53.6 % (94-97); ABG PCO2 52 mmHg (35-45); ABG PH 7.26 (7.35-7.45); ABG TCO2 25 mmol/L (19-24)
[2024-05-31 15:58] LABS: Allen Test Performed? no
[2024-05-31 15:59] LABS: ABG PO2 <30 mmHg (83-108); Allen Test Performed? no
[2024-05-31 17:28] LABS: Glucose,Whole Blood 147 mg/dL (70-110)
[2024-05-31 19:39] LABS: Glucose,Whole Blood 147 mg/dL (70-110)
[2024-05-31] MEDS ORDERED: tiZANidine 4 MG TAB PO SCH (21:00)
[2024-05-31 21:34] LABS: Glucose,Whole Blood 105 mg/dL (70-110)
[2024-05-31] MEDS: SENNOSIDES-DOCUSATE SODIUM 1 EACH TAB PO SCH (21:58)
[2024-05-31] MEDS: MONTELUKAST 10 MG TAB PO SCH (21:58)
[2024-05-31 22:16] LABS: Glucose,Whole Blood 123 mg/dL (70-110)
[2024-05-31 23:04] LABS: Glucose,Whole Blood 141 mg/dL (70-110)
[2024-06-01 00:07] LABS: Glucose,Whole Blood 130 mg/dL (70-110)
[2024-06-01 01:09] LABS: Glucose,Whole Blood 114 mg/dL (70-110)
[2024-06-01 02:17] LABS: Glucose,Whole Blood 142 mg/dL (70-110)
[2024-06-01 03:07] LABS: Glucose,Whole Blood 137 mg/dL (70-110)
[2024-06-01 04:03] LABS: Glucose,Whole Blood 123 mg/dL (70-110)
[2024-06-01 05:17] LABS: Glucose,Whole Blood 102 mg/dL (70-110)
[2024-06-01 05:38] LABS: Anisocytosis Slight; Basophils % (A) 0 %; Eosinophils % (A) 0 %; HCT 30.2 % (34.0-46.0); HGB 9.4 gm/dL (11.4-16.0); Hypochromasia Slight; Lymphocytes # (A) 0.9 k/uL (1.0-4.8); Lymphocytes % (A) 7 %; MCHC 31.2 g/dL (31.0-37.0); MCV 86.5 fL (80.0-100.0); Mean Platelet Volume 8.1; Monocytes # (A) 0.6 k/uL (0-1.0); Monocytes % (A) 6 %; Neutrophils % (A) 86 %; Platelet Count 102 k/uL (150-450); RBC 3.49 m/uL (3.80-5.40); RDW 16.4 % (11.5-15.5); WBC 11.7 k/uL (3.8-10.6)
[2024-06-01] MEDS: ACETAMINOPHEN TAB 325 MG TAB PO PRN (05:52)
[2024-06-01 06:02] LABS: Glucose,Whole Blood 132 mg/dL (70-110)
[2024-06-01 06:02] LABS: Ionized Calcium 4.4 mg/dL (4.5-5.3)
[2024-06-01 06:13] LABS: ALT 23 U/L (4-34); AST 34 U/L (14-36); African American GFR (CKD) >90 (>60 ml/min/1.73 sqM); Albumin 3.9 g/dL (3.5-5.0); Alkaline Phosphatase 48 U/L (38-126); Anion Gap 8 mmol/L; Blood Urea Nitrogen 19 mg/dL (7-17); Calcium 7.9 mg/dL (8.4-10.2); Carbon Dioxide 21 mmol/L (22-30); Chloride 109 mmol/L (98-107); Glucose 103 mg/dL (74-99); Non-African American GFR(CKD) 90 (>60 ml/min/1.73 sqM); Potassium 3.8 mmol/L (3.5-5.1); Sodium 138 mmol/L (137-145); Total Bilirubin 0.8 mg/dL (0.2-1.3); Total Protein 5.8 g/dL (6.3-8.2)
[2024-06-01] MEDS: PANTOPRAZOLE 40 MG TABLET PO SCH (06:55)
[2024-06-01] MEDS: POTASSIUM BICARBONATE/CIT AC 20 MEQ TABLET.EFF PO ONE (06:55)
[2024-06-01] MEDS: CALCIUM GLUCONATE IN NACL 1 GM in SALINE 1 100ML.BAG IVPB ONE (07:23)
--- NOTE | 2024-06-01 07:45 | P.PN ---
Subjective Progress Note Date: 06/01/24 PROGRESS NOTE The patient is a 54-year-old female who presented yesterday to undergo aortic valve replacement because of severe bicuspid aortic valve stenosis. She received a size 23 pericardial bioprosthesis with single LOGAN to the LAD and closure of the left atrial appendage. She is extubated, sitting up in the chair. She is in sinus mechanism. She denies any dizziness or palpitations. She has chest soreness. She is on no vasopressors. She is status post stenting of the LAD, her IKER performed preoperatively showed a severe aortic stenosis with preserved systolic function. She had mild aortic regurgitation with mild mitral regurgitation preoperatively. She has a history of diabetes, hype rtension and hyperlipidemia. June 01: The patient is sitting up in the chair, has some chest soreness. She continues to be in sinus mechanism. She was started on milrinone because of low cardiac output. Her urinary output has been stable. She has no dizziness or palpitations and no significant nausea. Her breathing has been stable. Her EKG showed no acute ST segment changes. Medications: Amiodarone 400 mg twice a day, Lipitor 40 mg daily, Plavix 75 mg daily, insulin, metoprolol 25 mg twice a day, Protonix PHYSICAL EXAMINATION: Blood pressure 120/70 heart rate 90, PA pressure 34/13 LUNGS: Decreased breath sounds at the bases HEART: Regular rate and rhythm, S1, S2. No S3. Systolic ejection murmur at the base ABDOMEN: Soft, nontender, no organomegaly EXTREMETIES: No edema LAB: WBC 11.7, hemoglobin 9.4, BUN 19, creatinine 0.75. Potassium 3.8 IMPRESSION: 1. Status post aortic valve replacement and CABG with LOGAN to the LAD 2. History of hypertension 3. Hyperlipidemia 4. Diabetes mellitus PLAN: 1. Wean milrinone as tolerated 2. Increase physical activity 3. Continue incentive spirometry 4. Depending on her progress further recommendations will be made Objective - Vital Signs Vital signs: Vital Signs Temp 99.7 F H 06/01/24 04:00 Pulse 92 06/01/24 07:00 Resp 27 H 06/01/24 07:00 BP 120/75 06/01/24 07:00 Pulse Ox 93 L 06/01/24 07:00 FiO2 30 06/01/24 04:00 Intake & Output 05/31/24 06/01/24 06/01/24 18:59 06:59 18:59 Intake Total 2486.124 1398.772 159 Output Total 400 520 45 Balance 2086.124 878.772 114 Weight 100.8 kg 105.6 kg Intake: IV 1768 1309 59 Albumin Human 25% 50 ml @ 100 0 mls/hr IV ONCE ONE Rx# :[id number] Albumin Human 5% 250 ml 500 In Empty Bag 1 bag @ 250 mls/hr IVPB Q1HR PRN Rx#: [id number] Injectate 110 110 Pressure Bags 108 99 9 Sodium Chloride 0.9% 1, 450 600 50 000 ml @ 30 mls/hr IV . Q24H [facility] Rx#:[id number] Vancomycin 1,500 mg In 500 500 Sodium Chloride 0.9% 500 ml 500 ml @ 167 mls/hr IVPB Q12HR [facility] Rx#: [id number] Intake, IV Titration 318.124 89.772 100 Amount Amiodarone 450 mg In 250 Dextrose 5% in Water 250 ml @ 0.5 MG/MIN 16.667 mls/hr IV .Q15H [facility] Rx#: [id number] Insulin Regular 100 unit 68.124 89.772 In Sodium Chloride 0.9% 100 ml @ Per Protocol IV .Q0M [facility] Rx#:[id number] Milrinone-D5w Pmx 20 mg 100 In Dextrose/Water 1 100ml .bag @ 0.3 MCG/KG/MIN 9. 072 mls/hr IV .Q11H2M [facility] Rx#:[id number] Oral 400 Output: Chest Tube Drainage 130 110 20 Left Pleural 50 50 10 Mediastinal x2 80 60 10 Urine 270 410 25 Other: Voiding Method Indwelling Catheter Indwelling Catheter ABP, PAP, CO, CI - Last Documented Arterial Blood Pressure 142/58 Pulmonary Artery Pressure 34/13 Cardiac Output 5.1 Cardiac Index 2.6 - Labs CBC & Chem 7: 06/01/24 05:10 06/01/24 05:10 Labs: Abnormal Lab Results - Last 24 Hours (Table) 05/31/24 05/31/24 05/31/24 Range/Units 08:37 09:47 10:20 WBC (3.8-10.6) k/uL RBC (3.80-5.40) m/uL Hgb (11.4-16.0) gm/dL Hct (34.0-46.0) % RDW (11.5-15.5) % Plt Count (150-450) k/uL Neutrophils # (1.3-7.7) k/uL Lymphocytes # (1.0-4.8) k/uL ABG pH (7.35-7.45) ABG pCO2 (35-45) mmHg ABG pO2 (83-108) mmHg ABG Total CO2 (19-24) mmol/L ABG O2 Saturation (94-97) % Hemoglobin (11.4-16.0) gm/dL Chloride (98-107) mmol/L Carbon Dioxide (22-30) mmol/L BUN (7-17) mg/dL Glucose (74-99) mg/dL POC Glucose (mg/dL) 113 H 178 H 177 H (70-110) mg/dL Calcium (8.4-10.2) mg/dL Ionized Calcium Wicho (4.5-5.3) mg/dL Total Protein (6.3-8.2) g/dL 05/31/24 05/31/24 05/31/24 Range/Units 11:45 12:42 13:13 WBC (3.8-10.6) k/uL RBC (3.80-5.40) m/uL Hgb (11.4-16.0) gm/dL Hct (34.0-46.0) % RDW (11.5-15.5) % Plt Count (150-450) k/uL Neutrophils # (1.3-7.7) k/uL Lymphocytes # (1.0-4.8) k/uL ABG pH 7.23 L (7.35-7.45) ABG pCO2 54 H (35-45) mmHg ABG pO2 <30 L* (83-108) mmHg ABG Total CO2 25 H (19-24) mmol/L ABG O2 Saturation 42.8 L (94-97) % Hemoglobin 10.1 L (11.4-16.0) gm/dL Chloride (98-107) mmol/L Carbon Dioxide (22-30) mmol/L BUN (7-17) mg/dL Glucose (74-99) mg/dL POC Glucose (mg/dL) 163 H 146 H (70-110) mg/dL Calcium (8.4-10.2) mg/dL Ionized Calcium Wicho (4.5-5.3) mg/dL Total Protein (6.3-8.2) g/dL 05/31/24 05/31/24 05/31/24 Range/Units 13:14 13:17 14:09 WBC (3.8-10.6) k/uL RBC (3.80-5.40) m/uL Hgb (11.4-16.0) gm/dL Hct (34.0-46.0) % RDW (11.5-15.5) % Plt Count (150-450) k/uL Neutrophils # (1.3-7.7) k/uL Lymphocytes # (1.0-4.8) k/uL ABG pH 7.27 L (7.35-7.45) ABG pCO2 47 H (35-45) mmHg ABG pO2 81 L (83-108) mmHg ABG Total CO2 (19-24) mmol/L ABG O2 Saturation (94-97) % Hemoglobin 10.1 L (11.4-16.0) gm/dL Chloride (98-107) mmol/L Carbon Dioxide (22-30) mmol/L BUN (7-17) mg/dL Glucose (74-99) mg/dL POC Glucose (mg/dL) 158 H 167 H (70-110) mg/dL Calcium (8.4-10.2) mg/dL Ionized Calcium Wicho (4.5-5.3) mg/dL Total Protein (6.3-8.2) g/dL 05/31/24 05/31/24 05/31/24 Range/Units 15:50 15:52 17:27 WBC (3.8-10.6) k/uL RBC (3.80-5.40) m/uL Hgb (11.4-16.0) gm/dL Hct (34.0-46.0) % RDW (11.5-15.5) % Plt Count (150-450) k/uL Neutrophils # (1.3-7.7) k/uL Lymphocytes # (1.0-4.8) k/uL ABG pH 7.30 L 7.26 L (7.35-7.45) ABG pCO2 52 H (35-45) mmHg ABG pO2 <30 L* (83-108) mmHg ABG Total CO2 25 H (19-24) mmol/L ABG O2 Saturation 53.6 L (94-97) % Hemoglobin 10.0 L 9.7 L (11.4-16.0) gm/dL Chloride (98-107) mmol/L Carbon Dioxide (22-30) mmol/L BUN (7-17) mg/dL Glucose (74-99) mg/dL POC Glucose (mg/dL) 147 H (70-110) mg/dL Calcium (8.4-10.2) mg/dL Ionized Calcium Wicho (4.5-5.3) mg/dL Total Protein (6.3-8.2) g/dL 05/31/24 05/31/24 05/31/24 Range/Units 19:38 22:14 23:01 WBC (3.8-10.6) k/uL RBC (3.80-5.40) m/uL Hgb (11.4-16.0) gm/dL Hct (34.0-46.0) % RDW (11.5-15.5) % Plt Count (150-450) k/uL Neutrophils # (1.3-7.7) k/uL Lymphocytes # (1.0-4.8) k/uL ABG pH (7.35-7.45) ABG pCO2 (35-45) mmHg ABG pO2 (83-108) mmHg ABG Total CO2 (19-24) mmol/L ABG O2 Saturation (94-97) % Hemoglobin (11.4-16.0) gm/dL Chloride (98-107) mmol/L Carbon Dioxide (22-30) mmol/L BUN (7-17) mg/dL Glucose (74-99) mg/dL POC Glucose (mg/dL) 147 H 123 H 141 H (70-110) mg/dL Calcium (8.4-10.2) mg/dL Ionized Calcium Wicho (4.5-5.3) mg/dL Total Protein (6.3-8.2) g/dL 06/01/24 06/01/24 06/01/24 Range/Units 00:05 01:07 02:16 WBC (3.8-10.6) k/uL RBC (3.80-5.40) m/uL Hgb (11.4-16.0) gm/dL Hct (34.0-46.0) % RDW (11.5-15.5) % Plt Count (150-450) k/uL Neutrophils # (1.3-7.7) k/uL Lymphocytes # (1.0-4.8) k/uL ABG pH (7.35-7.45) ABG pCO2 (35-45) mmHg ABG pO2 (83-108) mmHg ABG Total CO2 (19-24) mmol/L ABG O2 Saturation (94-97) % Hemoglobin (11.4-16.0) gm/dL Chloride (98-107) mmol/L Carbon Dioxide (22-30) mmol/L BUN (7-17) mg/dL Glucose (74-99) mg/dL POC Glucose (mg/dL) 130 H 114 H 142 H (70-110) mg/dL Calcium (8.4-10.2) mg/dL Ionized Calcium Wicho (4.5-5.3) mg/dL Total Protein (6.3-8.2) g/dL 06/01/24 06/01/24 06/01/24 Range/Units 03:05 04:02 05:10 WBC 11.7 H (3.8-10.6) k/uL RBC 3.49 L (3.80-5.40) m/uL Hgb 9.4 L (11.4-16.0) gm/dL Hct 30.2 L (34.0-46.0) % RDW 16.4 H (11.5-15.5) % Plt Count 102 L (150-450) k/uL Neutrophils # 10.0 H (1.3-7.7) k/uL Lymphocytes # 0.9 L (1.0-4.8) k/uL ABG pH (7.35-7.45) ABG pCO2 (35-45) mmHg ABG pO2 (83-108) mmHg ABG Total CO2 (19-24) mmol/L ABG O2 Saturation (94-97) % Hemoglobin (11.4-16.0) gm/dL Chloride (98-107) mmol/L Carbon Dioxide (22-30) mmol/L BUN (7-17) mg/dL Glucose (74-99) mg/dL POC Glucose (mg/dL) 137 H 123 H (70-110) mg/dL Calcium (8.4-10.2) mg/dL Ionized Calcium Wicho (4.5-5.3) mg/dL Total Protein (6.3-8.2) g/dL 06/01/24 06/01/24 Range/Units 05:10 06:00 WBC (3.8-10.6) k/uL RBC (3.80-5.40) m/uL Hgb (11.4-16.0) gm/dL Hct (34.0-46.0) % RDW (11.5-15.5) % Plt Count (150-450) k/uL Neutrophils # (1.3-7.7) k/uL Lymphocytes # (1.0-4.8) k/uL ABG pH (7.35-7.45) ABG pCO2 (35-45) mmHg ABG pO2 (83-108) mmHg ABG Total CO2 (19-24) mmol/L ABG O2 Saturation (94-97) % Hemoglobin (11.4-16.0) gm/dL Chloride 109 H (98-107) mmol/L Carbon Dioxide 21 L (22-30) mmol/L BUN 19 H (7-17) mg/dL Glucose 103 H (74-99) mg/dL POC Glucose (mg/dL) 132 H (70-110) mg/dL Calcium 7.9 L (8.4-10.2) mg/dL Ionized Calcium Wicho 4.4 L (4.5-5.3) mg/dL Total Protein 5.8 L (6.3-8.2) g/dL Microbiology - Last 24 Hours (Table) 05/30/24 08:35 Urine Culture - Final Urine,Catheterized
--- NOTE | 2024-06-01 08:06 | P.PN ---
Subjective Progress Note Date: 06/01/24 Principal diagnosis: Severe bicuspid aortic valve stenosis with fusion of the right and the left cusps, coronary artery disease status with previous myocardial infarction post prior stenting to the left anterior descending artery with moderate proximal LAD stenosis, hypertension, hyperlipidemia, insulin-dependent diabetes mellitus, TIA a few years ago, obesity, obstructive sleep apnea using CPAP, COPD/asthma, hypothyroidism, anxiety disorder, previous tobacco dependence, occasional marijuana use. Family history of premature coronary artery disease with father diagnosed in his 50s. Preoperative urinary tract infection with E. coli, treated. Preoperative nasal swab positive for MSSA, treated. POD #2 single coronary artery bypass grafting using the in situ left intrama mmary artery to the left anterior descending artery, aortic valve replacement using a 23 mm Inspiris Resilia pericardial bioprosthesis, exclusion of the left atrial appendage using a 35 mm AtriClip, intraoperative transesophageal echocardiogram and epiaortic scanning, MEDISTIM graft flow measurement, reinforcement of the sternal closure with 2 plates sternalock EZ SYSTEM Postoperative acute blood loss anemia and thrombocytopenia, expected given hemodilution and cardiopulmonary bypass pump The patient was seen and examined this morning sitting up in recliner much more alert and awake this morning, complains of sore butt. She did have low cardiac output yesterday and was quite sleepy, ABGs and mixed venous gas were obtained, patient was started on IV milrinone and placed on BiPAP which she does wear at home. Blood gases and mixed venous gas improved, cardiac output/index improved. Currently in sinus rhythm, hemodynamically stable on IV Primacor. Currently on 2 L nasal cannula with oxygen saturation in the mid 90s, able to achieve 500 mL on her incentive spirometry with poor effort. Denies any significant postsurgical chest pain currently although does state it hurts when she coughs, denies shortness of breath. Right internal jugular [place]/Cordis, right radial arterial line, mediastinal/left pleural chest tubes all remain. No other new concerns. Objective - Vital Signs Vital signs: Vital Signs Temp 99.7 F H 06/01/24 04:00 Pulse 92 06/01/24 07:00 Resp 27 H 06/01/24 07:00 BP 120/75 06/01/24 07:00 Pulse Ox 97 06/01/24 07:43 FiO2 30 06/01/24 04:00 Intake & Output 05/31/24 06/01/24 06/01/24 18:59 06:59 18:59 Intake Total 2486.124 1398.772 159 Output Total 400 520 45 Balance 2086.124 878.772 114 Weight 100.8 kg 105.6 kg Intake: IV 1768 1309 59 Albumin Human 25% 50 ml @ 100 0 mls/hr IV ONCE ONE Rx# :[id number] Albumin Human 5% 250 ml 500 In Empty Bag 1 bag @ 250 mls/hr IVPB Q1HR PRN Rx#: [id number] Injectate 110 110 Pressure Bags 108 99 9 Sodium Chloride 0.9% 1, 450 600 50 000 ml @ 30 mls/hr IV . Q24H [facility] Rx#:[id number] Vancomycin 1,500 mg In 500 500 Sodium Chloride 0.9% 500 ml 500 ml @ 167 mls/hr IVPB Q12HR [facility] Rx#: [id number] Intake, IV Titration 318.124 89.772 100 Amount Amiodarone 450 mg In 250 Dextrose 5% in Water 250 ml @ 0.5 MG/MIN 16.667 mls/hr IV .Q15H [facility] Rx#: [id number] Insulin Regular 100 unit 68.124 89.772 In Sodium Chloride 0.9% 100 ml @ Per Protocol IV .Q0M [facility] Rx#:[id number] Milrinone-D5w Pmx 20 mg 100 In Dextrose/Water 1 100ml .bag @ 0.3 MCG/KG/MIN 9. 072 mls/hr IV .Q11H2M [facility] Rx#:[id number] Oral 400 Output: Chest Tube Drainage 130 110 20 Left Pleural 50 50 10 Mediastinal x2 80 60 10 Urine 270 410 25 Other: Voiding Method Indwelling Catheter Indwelling Catheter ABP, PAP, CO, CI - Last Documented Arterial Blood Pressure 142/58 Pulmonary Artery Pressure 34/13 Cardiac Output 5.1 Cardiac Index 2.6 - Exam CONSTITUTIONAL: Appears comfortable, cooperative, no acute distress, much more awake this morning RESPIRATORY: Lungs sounds diminished bilaterally. Respirations even, nonlabored. Currently on 2 L nasal cannula with oxygen saturation 95%. Able to achieve 500 mL on incentive spirometry. Weak cough. CARDIOVASCULAR: S1, S2 present. Regular rate and rhythm, sinus rhythm on telemetry. Sternum stable. Palpable peripheral pulses bilaterally. Trace generalized edema present. No calf pain or tenderness noted. Heart hugger in place with patient demonstrating appropriate use. Antiembolism stockings, SCDs present. GASTROINTESTINAL: Abdomen soft, nontender, nondistended. Active bowel sounds present 4 quadrants. Tolerating minimal clear liquids. Denies flatus, positive belching GENITOURINARY: Shea present draining clear, yellow urine. Output overnight 30-50 mL per hour, 655 mL in the last 24 hours INTEGUMENTARY: Skin is warm and dry with evidence of good perfusion. Anterior chest incision well approximated and covered with dry intact dressing NEUROLOGIC: Cranial nerves II through XII intact MUSKULOSKELETAL: Able to move all extremities, strength equal bilaterally PSYCHIATRIC: Awake and alert, oriented to person place and time, flat affect, intact judgment and insight INVASIVE LINES AND TUBES: Mediastinal/left pleural chest tubes present and connected to wall suction, no air leaks present. Mediastinal tube with 50 mL serosanguineous drainage overnight, 150 mL in the last 24 hours. Left pleural chest tube with 50 mL serosanguineous drainage overnight, 150 mL in the last 24 hours. A/V epicardial pacemaker wires present, connected to generator, VVI mode with backup rate 50 bpm. Right internal jugular [place]/Cordis, right radial arterial line present. Last CO/CI 5.1/2.6, PA 30/15, CVP 10. - Allied health notes Allied health notes reviewed: nursing - Labs CBC & Chem 7: 06/01/24 05:10 06/01/24 05:10 Labs: Abnormal Lab Results - Last 24 Hours (Table) 05/31/24 05/31/24 05/31/24 Range/Units 08:37 09:47 10:20 WBC (3.8-10.6) k/uL RBC (3.80-5.40) m/uL Hgb (11.4-16.0) gm/dL Hct (34.0-46.0) % RDW (11.5-15.5) % Plt Count (150-450) k/uL Neutrophils # (1.3-7.7) k/uL Lymphocytes # (1.0-4.8) k/uL ABG pH (7.35-7.45) ABG pCO2 (35-45) mmHg ABG pO2 (83-108) mmHg ABG Total CO2 (19-24) mmol/L ABG O2 Saturation (94-97) % Hemoglobin (11.4-16.0) gm/dL Chloride (98-107) mmol/L Carbon Dioxide (22-30) mmol/L BUN (7-17) mg/dL Glucose (74-99) mg/dL POC Glucose (mg/dL) 113 H 178 H 177 H (70-110) mg/dL Calcium (8.4-10.2) mg/dL Ionized Calcium Wicho (4.5-5.3) mg/dL Total Protein (6.3-8.2) g/dL 05/31/24 05/31/24 05/31/24 Range/Units 11:45 12:42 13:13 WBC (3.8-10.6) k/uL RBC (3.80-5.40) m/uL Hgb (11.4-16.0) gm/dL Hct (34.0-46.0) % RDW (11.5-15.5) % Plt Count (150-450) k/uL Neutrophils # (1.3-7.7) k/uL Lymphocytes # (1.0-4.8) k/uL ABG pH 7.23 L (7.35-7.45) ABG pCO2 54 H (35-45) mmHg ABG pO2 <30 L* (83-108) mmHg ABG Total CO2 25 H (19-24) mmol/L ABG O2 Saturation 42.8 L (94-97) % Hemoglobin 10.1 L (11.4-16.0) gm/dL Chloride (98-107) mmol/L Carbon Dioxide (22-30) mmol/L BUN (7-17) mg/dL Glucose (74-99) mg/dL POC Glucose (mg/dL) 163 H 146 H (70-110) mg/dL Calcium (8.4-10.2) mg/dL Ionized Calcium Wicho (4.5-5.3) mg/dL Total Protein (6.3-8.2) g/dL 05/31/24 05/31/24 05/31/24 Range/Units 13:14 13:17 14:09 WBC (3.8-10.6) k/uL RBC (3.80-5.40) m/uL Hgb (11.4-16.0) gm/dL Hct (34.0-46.0) % RDW (11.5-15.5) % Plt Count (150-450) k/uL Neutrophils # (1.3-7.7) k/uL Lymphocytes # (1.0-4.8) k/uL ABG pH 7.27 L (7.35-7.45) ABG pCO2 47 H (35-45) mmHg ABG pO2 81 L (83-108) mmHg ABG Total CO2 (19-24) mmol/L ABG O2 Saturation (94-97) % Hemoglobin 10.1 L (11.4-16.0) gm/dL Chloride (98-107) mmol/L Carbon Dioxide (22-30) mmol/L BUN (7-17) mg/dL Glucose (74-99) mg/dL POC Glucose (mg/dL) 158 H 167 H (70-110) mg/dL Calcium (8.4-10.2) mg/dL Ionized Calcium Wicho (4.5-5.3) mg/dL Total Protein (6.3-8.2) g/dL 05/31/24 05/31/24 05/31/24 Range/Units 15:50 15:52 17:27 WBC (3.8-10.6) k/uL RBC (3.80-5.40) m/uL Hgb (11.4-16.0) gm/dL Hct (34.0-46.0) % RDW (11.5-15.5) % Plt Count (150-450) k/uL Neutrophils # (1.3-7.7) k/uL Lymphocytes # (1.0-4.8) k/uL ABG pH 7.30 L 7.26 L (7.35-7.45) ABG pCO2 52 H (35-45) mmHg ABG pO2 <30 L* (83-108) mmHg ABG Total CO2 25 H (19-24) mmol/L ABG O2 Saturation 53.6 L (94-97) % Hemoglobin 10.0 L 9.7 L (11.4-16.0) gm/dL Chloride (98-107) mmol/L Carbon Dioxide (22-30) mmol/L BUN (7-17) mg/dL Glucose (74-99) mg/dL POC Glucose (mg/dL) 147 H (70-110) mg/dL Calcium (8.4-10.2) mg/dL Ionized Calcium Wicho (4.5-5.3) mg/dL Total Protein (6.3-8.2) g/dL 05/31/24 05/31/24 05/31/24 Range/Units 19:38 22:14 23:01 WBC (3.8-10.6) k/uL RBC (3.80-5.40) m/uL Hgb (11.4-16.0) gm/dL Hct (34.0-46.0) % RDW (11.5-15.5) % Plt Count (150-450) k/uL Neutrophils # (1.3-7.7) k/uL Lymphocytes # (1.0-4.8) k/uL ABG pH (7.35-7.45) ABG pCO2 (35-45) mmHg ABG pO2 (83-108) mmHg ABG Total CO2 (19-24) mmol/L ABG O2 Saturation (94-97) % Hemoglobin (11.4-16.0) gm/dL Chloride (98-107) mmol/L Carbon Dioxide (22-30) mmol/L BUN (7-17) mg/dL Glucose (74-99) mg/dL POC Glucose (mg/dL) 147 H 123 H 141 H (70-110) mg/dL Calcium (8.4-10.2) mg/dL Ionized Calcium Wicho (4.5-5.3) mg/dL Total Protein (6.3-8.2) g/dL 06/01/24 06/01/24 06/01/24 Range/Units 00:05 01:07 02:16 WBC (3.8-10.6) k/uL RBC (3.80-5.40) m/uL Hgb (11.4-16.0) gm/dL Hct (34.0-46.0) % RDW (11.5-15.5) % Plt Count (150-450) k/uL Neutrophils # (1.3-7.7) k/uL Lymphocytes # (1.0-4.8) k/uL ABG pH (7.35-7.45) ABG pCO2 (35-45) mmHg ABG pO2 (83-108) mmHg ABG Total CO2 (19-24) mmol/L ABG O2 Saturation (94-97) % Hemoglobin (11.4-16.0) gm/dL Chloride (98-107) mmol/L Carbon Dioxide (22-30) mmol/L BUN (7-17) mg/dL Glucose (74-99) mg/dL POC Glucose (mg/dL) 130 H 114 H 142 H (70-110) mg/dL Calcium (8.4-10.2) mg/dL Ionized Calcium Wicho (4.5-5.3) mg/dL Total Protein (6.3-8.2) g/dL 06/01/24 06/01/24 06/01/24 Range/Units 03:05 04:02 05:10 WBC 11.7 H (3.8-10.6) k/uL RBC 3.49 L (3.80-5.40) m/uL Hgb 9.4 L (11.4-16.0) gm/dL Hct 30.2 L (34.0-46.0) % RDW 16.4 H (11.5-15.5) % Plt Count 102 L (150-450) k/uL Neutrophils # 10.0 H (1.3-7.7) k/uL Lymphocytes # 0.9 L (1.0-4.8) k/uL ABG pH (7.35-7.45) ABG pCO2 (35-45) mmHg ABG pO2 (83-108) mmHg ABG Total CO2 (19-24) mmol/L ABG O2 Saturation (94-97) % Hemoglobin (11.4-16.0) gm/dL Chloride (98-107) mmol/L Carbon Dioxide (22-30) mmol/L BUN (7-17) mg/dL Glucose (74-99) mg/dL POC Glucose (mg/dL) 137 H 123 H (70-110) mg/dL Calcium (8.4-10.2) mg/dL Ionized Calcium Wicho (4.5-5.3) mg/dL Total Protein (6.3-8.2) g/dL 06/01/24 06/01/24 Range/Units 05:10 06:00 WBC (3.8-10.6) k/uL RBC (3.80-5.40) m/uL Hgb (11.4-16.0) gm/dL Hct (34.0-46.0) % RDW (11.5-15.5) % Plt Count (150-450) k/uL Neutrophils # (1.3-7.7) k/uL Lymphocytes # (1.0-4.8) k/uL ABG pH (7.35-7.45) ABG pCO2 (35-45) mmHg ABG pO2 (83-108) mmHg ABG Total CO2 (19-24) mmol/L ABG O2 Saturation (94-97) % Hemoglobin (11.4-16.0) gm/dL Chloride 109 H (98-107) mmol/L Carbon Dioxide 21 L (22-30) mmol/L BUN 19 H (7-17) mg/dL Glucose 103 H (74-99) mg/dL POC Glucose (mg/dL) 132 H (70-110) mg/dL Calcium 7.9 L (8.4-10.2) mg/dL Ionized Calcium Wicho 4.4 L (4.5-5.3) mg/dL Total Protein 5.8 L (6.3-8.2) g/dL Microbiology - Last 24 Hours (Table) 05/30/24 08:35 Urine Culture - Final Urine,Catheterized - Imaging and Cardiology Chest x-ray: image reviewed Assessment and Plan Assessment: Severe bicuspid aortic valve stenosis with fusion of the right and the left cusps, S/P aortic valve replacement Coronary artery disease status with previous myocardial infarction post prior stenting to the left anterior descending artery with moderate proximal LAD stenosis, S/P single coronary artery bypass grafting Postoperative acute blood loss anemia and thrombocytopenia, expected given hemodilution and cardiopulmonary bypass pump History of hypertension Hyperlipidemia, cholesterol 251, triglycerides 267, LDL 169 Insulin-dependent diabetes mellitus, preoperative hemoglobin A1c 7.5% TIA a few years ago Obesity Obstructive sleep apnea using CPAP COPD/asthma, preoperative FEV1 82% of predicted Hypothyroidism, preoperative TSH 0.406 Anxiety disorder Previous tobacco dependence Occasional marijuana use Family history of premature coronary artery disease with father diagnosed in his 50s Preoperative urinary tract infection with E. coli, treated Preoperative nasal swab positive for MSSA, treated Plan: Continue to maximize medical therapy with aspirin, statin, Plavix, beta-neris. Will increase beta-neris therapy as tolerated Continue amiodarone for A-fib prophylaxis. Patient has had no atrial fibrillation up to this point Continue low-dose Cozaar for afterload reduction Will wean Primacor as tolerated Wean O2 as tolerated. Encourage incentive spirometry use 10 times every hour while awake. Bronchodilators per pulmonology Will monitor daily labs and x-rays, electrolyte replacement per protocol. Will give 20 mg IV push Lasix today Increase activity, ambulate as tolerated. PT/OT/cardiac rehab consulted GI/DVT prophylaxis Pain control per current medication regimen. Hold narcotics Insulin management per internal medicine. Patient needs to remain on continuous IV insulin for minimum 48 hours, then may transition to subcutaneous insulin per protocol Will discontinue chest tubes for another 24 hours Continue Shea catheter for another 24 hours, continue to monitor and record strict accurate intake and output Daily weights More recommendations to follow as patient progresses
[2024-06-01 08:15] LABS: Glucose,Whole Blood 136 mg/dL (70-110)
[2024-06-01] MEDS: FUROSEMIDE 10 MG/ML 2 ML VIAL IV ONE (08:28)
--- NOTE | 2024-06-01 09:00 | XR ---
EXAMINATION TYPE: XR chest 1V portable DATE OF EXAM: 06/01/2024 COMPARISON: 05/31/2024 INDICATION: Postop cardiac surgery TECHNIQUE: Single frontal view of the chest is obtained. FINDINGS: The heart size is somewhat prominent. The pulmonary vasculature is normal. The lungs are clear. [place] catheter is present with the tip in the main pulmonary artery region. IMPRESSION: 1. Mild cardiomegaly [facility], , 06/01/2024 8:58 AM
[2024-06-01 09:18] LABS: Glucose,Whole Blood 133 mg/dL (70-110)
[2024-06-01 10:14] LABS: Glucose,Whole Blood 117 mg/dL (70-110)
[2024-06-01] MEDS: METOPROLOL TARTRATE 25 MG TAB PO SCH (11:13)
--- NOTE | 2024-06-01 11:45 | P.PN ---
Subjective Progress Note Date: 06/01/24 This is a 54-year-old female patient was being seen in the intensive care unit following her cardiac surgery. Patient underwent a aortic valve replacement as the patient was found to have severe aortic stenosis with a bicuspid aortic valve and the patient underwent a single-vessel bypass surgery. Her cardiac catheterization was done on 10/06/2023 and the patient has 50% stenosis of the LAD. Echocardiogram revealed bicuspid aortic valve with a preserved LV function with an ejection fraction of 55 to 60%. At this point in time, the patient is sedated on propofol and the patient is calm and comfortable. Intubated on mechanical ventilator. She is on assist-control mode of mechanical ventilation at rate of 14, tidal volume of 350, FiO2 of 100% and a PEEP of 10. The patient has 3 different chest tubes in place, mediastinal and left pleural. The chest x-ray shows no evidence of any pneumothorax. ET tube is in a good location. No significant atelectatic changes. There are some increased perihilar pulmonary vascular markings. No evidence of any pneumothorax. Hemodynamically stable. Cardiac output is at 4.7 with an index of 2.4 and the PA pressure 29/17 with a CVP of 9. Cardiac rhythm is sinus. Adequate urine output. No other significant events reported postop. WBC was at 9.1 with hemoglobin 10.7 and a platelet count of 102. Blood gas showed a pH of 7.25 with a pCO2 of 53 and pO2 of 318. The BUN is 16 with a creatinine of 0.6 and a sodium levels at 138 and a bicarb level is at 21 with a potassium level of 4.0 05/31/2024, patient is being seen for a follow-up. The patient was weaned off the mechanical ventilator and patient was extubated to BiPAP and currently she is on oxygen at 2 L/min nasal cannula. She is postop day #1 and she is awake and alert and sitting up in a chair. Her cardiac output is at 3.6 with an index of 1.8. PA pressures are 33/13 and a CVP is 11. She is having some lower urine output and lower blood pressure. Based on that, the patient is being given IV albumin. Chest tubes are in place. The patient has 2 mediastinal chest tube and a pleural chest tube on the left and output has been in the order of 20 to 30 cc an hour. No evidence of any air leak. Chest x-ray from today shows no evidence of any pneumothorax, [place]Gypsy catheter in place and the patient continues to have some atelectatic changes left lung base. Cardiac rhythm is sinus. WBC count is at 9.4 with a hemoglobin 10.5 and a platelet count of 121. The BUN is 15 with a creatinine of 0.72 and a sodium levels at 140. The patient is awake and alert and communicating. No other significant events overnight. The patient is using the incentive spirometer and she is pulling approximately 500 cc on her incentive spirometer. No other significant events overnight. On 06/01/2024, the patient is being seen for a follow-up. The patient is still recovering from a cardiac surgery. The patient is currently postoperative day #2 following coronary bypass surgery and aortic valve replacement. Noted the patient was weaned off the mechanical ventilator and the patient was extubated to a BiPAP and currently the patient is on oxygen by nasal cannula which is at 2 L. The patient did encounter some hypotension and low cardiac output yesterday. Based on that, the patient was started on milrinone which is currently running at 0.2 mcg/kg/min. Since then, his urine output is improved and the cardiac output is also improved and the patient's most recent cardiac output is 5.1 with an index of 2.6 with a PA pressure of 34/13. Blood pressure is stable for now. No significant hypotension. No altered mentation. Chest x-ray from today is showing cardiomegaly and mild pulm vessel congestion. Otherwise, no other acute abnormalities are noted. The patient continues to have the chest tubes in place with the left lower chest tube has drained around 150 cc over the past 24 hours and the mediastinal chest tube has drained approximately 150 cc over the past 24 hours. The patient has a right IJ [place]Gypsy catheter in place. Awake and alert and communicating. Urine output is noted of 30 to 50 cc an hour. WBC count 11.7 with a hemoglobin of 0.4 and a platelet count of 102. BUN is 19 with a creatinine of 0.7 and sodium levels at 138. Remains on insulin drip which is running at 9 units an hour. Underlying cardiac rhythm is sinus. No other significant events overnight. Objective - Vital Signs Vital signs: Vital Signs Temp 99.7 F H 06/01/24 04:00 Pulse 95 06/01/24 08:30 Resp 18 06/01/24 08:30 BP 111/62 06/01/24 08:30 Pulse Ox 98 06/01/24 08:30 FiO2 30 06/01/24 04:00 Intake & Output 05/31/24 06/01/24 06/01/24 18:59 06:59 18:59 Intake Total 2486.124 1398.772 738 Output Total 400 520 70 Balance 2086.124 878.772 668 Weight 100.8 kg 105.6 kg Intake: IV 1768 1309 638 Albumin Human 25% 50 ml @ 100 0 mls/hr IV ONCE ONE Rx# :[id number] Albumin Human 5% 250 ml 500 In Empty Bag 1 bag @ 250 mls/hr IVPB Q1HR PRN Rx#: [id number] Injectate 110 110 20 Pressure Bags 108 99 18 Sodium Chloride 0.9% 1, 450 600 100 000 ml @ 30 mls/hr IV . Q24H [facility] Rx#:[id number] Vancomycin 1,500 mg In 500 500 500 Sodium Chloride 0.9% 500 ml 500 ml @ 167 mls/hr IVPB Q12HR [facility] Rx#: [id number] Intake, IV Titration 318.124 89.772 100 Amount Amiodarone 450 mg In 250 Dextrose 5% in Water 250 ml @ 0.5 MG/MIN 16.667 mls/hr IV .Q15H [facility] Rx#: [id number] Insulin Regular 100 unit 68.124 89.772 In Sodium Chloride 0.9% 100 ml @ Per Protocol IV .Q0M [facility] Rx#:[id number] Milrinone-D5w Pmx 20 mg 100 In Dextrose/Water 1 100ml .bag @ 0.3 MCG/KG/MIN 9. 072 mls/hr IV .Q11H2M [facility] Rx#:[id number] Oral 400 Output: Chest Tube Drainage 130 110 20 Left Pleural 50 50 10 Mediastinal x2 80 60 10 Urine 270 410 50 Other: Voiding Method Indwelling Catheter Indwelling Catheter Indwelling Catheter ABP, PAP, CO, CI - Last Documented Arterial Blood Pressure 146/61 Pulmonary Artery Pressure 31/10 Cardiac Output 5.4 Cardiac Index 2.8 - Exam CONSTITUTIONAL: Appears comfortable, cooperative, no acute distress, much more awake this morning RESPIRATORY: Lungs sounds diminished bilaterally. Respirations even, nonlabored. Currently on 2 L nasal cannula with oxygen saturation 95%. Able to achieve 500 mL on incentive spirometry. Weak cough. CARDIOVASCULAR: S1, S2 present. Regular rate and rhythm, sinus rhythm on telemetry. Sternum stable. Palpable peripheral pulses bilaterally. Trace generalized edema present. No calf pain or tenderness noted. Heart hugger in place with patient demonstrating appropriate use. Antiembolism stockings, SCDs present. GASTROINTESTINAL: Abdomen soft, nontender, nondistended. Active bowel sounds present 4 quadrants. Tolerating minimal clear liquids. Denies flatus, positive belching GENITOURINARY: Shea present draining clear, yellow urine. Output overnight 30-50 mL per hour, 655 mL in the last 24 hours INTEGUMENTARY: Skin is warm and dry with evidence of good perfusion. Anterior chest incision well approximated and covered with dry intact dressing NEUROLOGIC: Cranial nerves II through XII intact MUSKULOSKELETAL: Able to move all extremities, strength equal bilaterally PSYCHIATRIC: Awake and alert, oriented to person place and time, flat affect, intact judgment and insight INVASIVE LINES AND TUBES: Mediastinal/left pleural chest tubes present and connected to wall suction, no air leaks present. Mediastinal tube with 50 mL serosanguineous drainage overnight, 150 mL in the last 24 hours. Left pleural chest tube with 50 mL serosanguineous drainage overnight, 150 mL in the last 24 hours. A/V epicardial pacemaker wires present, connected to generator, VVI mode with backup rate 50 bpm. Right internal jugular [place]/Cordis, right radial arterial line present. Last CO/CI 5.1/2.6, PA 30/15, CVP 10. - Labs CBC & Chem 7: 06/01/24 05:10 06/01/24 05:10 Labs: Abnormal Lab Results - Last 24 Hours (Table) 05/31/24 05/31/24 05/31/24 Range/Units 09:47 10:20 11:45 WBC (3.8-10.6) k/uL RBC (3.80-5.40) m/uL Hgb (11.4-16.0) gm/dL Hct (34.0-46.0) % RDW (11.5-15.5) % Plt Count (150-450) k/uL Neutrophils # (1.3-7.7) k/uL Lymphocytes # (1.0-4.8) k/uL ABG pH (7.35-7.45) ABG pCO2 (35-45) mmHg ABG pO2 (83-108) mmHg ABG Total CO2 (19-24) mmol/L ABG O2 Saturation (94-97) % Hemoglobin (11.4-16.0) gm/dL Chloride (98-107) mmol/L Carbon Dioxide (22-30) mmol/L BUN (7-17) mg/dL Glucose (74-99) mg/dL POC Glucose (mg/dL) 178 H 177 H 163 H (70-110) mg/dL Calcium (8.4-10.2) mg/dL Ionized Calcium Wicho (4.5-5.3) mg/dL Total Protein (6.3-8.2) g/dL 05/31/24 05/31/24 05/31/24 Range/Units 12:42 13:13 13:14 WBC (3.8-10.6) k/uL RBC (3.80-5.40) m/uL Hgb (11.4-16.0) gm/dL Hct (34.0-46.0) % RDW (11.5-15.5) % Plt Count (150-450) k/uL Neutrophils # (1.3-7.7) k/uL Lymphocytes # (1.0-4.8) k/uL ABG pH 7.23 L (7.35-7.45) ABG pCO2 54 H (35-45) mmHg ABG pO2 <30 L* (83-108) mmHg ABG Total CO2 25 H (19-24) mmol/L ABG O2 Saturation 42.8 L (94-97) % Hemoglobin 10.1 L (11.4-16.0) gm/dL Chloride (98-107) mmol/L Carbon Dioxide (22-30) mmol/L BUN (7-17) mg/dL Glucose (74-99) mg/dL POC Glucose (mg/dL) 146 H 158 H (70-110) mg/dL Calcium (8.4-10.2) mg/dL Ionized Calcium Wicho (4.5-5.3) mg/dL Total Protein (6.3-8.2) g/dL 05/31/24 05/31/2424 Range/Units 13:17 14:09 15:50 WBC (3.8-10.6) k/uL RBC (3.80-5.40) m/uL Hgb (11.4-16.0) gm/dL Hct (34.0-46.0) % RDW (11.5-15.5) % Plt Count (150-450) k/uL Neutrophils # (1.3-7.7) k/uL Lymphocytes # (1.0-4.8) k/uL ABG pH 7.27 L 7.30 L (7.35-7.45) ABG pCO2 47 H (35-45) mmHg ABG pO2 81 L (83-108) mmHg ABG Total CO2 (19-24) mmol/L ABG O2 Saturation (94-97) % Hemoglobin 10.1 L 10.0 L (11.4-16.0) gm/dL Chloride (98-107) mmol/L Carbon Dioxide (22-30) mmol/L BUN (7-17) mg/dL Glucose (74-99) mg/dL POC Glucose (mg/dL) 167 H (70-110) mg/dL Calcium (8.4-10.2) mg/dL Ionized Calcium W[place]o (4.5-5.3) mg/dL Total Protein (6.3-8.2) g/dL 05/31/24 05/31/24 05/31/24 Range/Units 15:52 17:27 19:38 WBC (3.8-10.6) k/uL RBC (3.80-5.40) m/uL Hgb (11.4-16.0) gm/dL Hct (34.0-46.0) % RDW (11.5-15.5) % Plt Count (150-450) k/uL Neutrophils # (1.3-7.7) k/uL Lymphocytes # (1.0-4.8) k/uL ABG pH 7.26 L (7.35-7.45) ABG pCO2 52 H (35-45) mmHg ABG pO2 <30 L* (83-108) mmHg ABG Total CO2 25 H (19-24) mmol/L ABG O2 Saturation 53.6 L (94-97) % Hemoglobin 9.7 L (11.4-16.0) gm/dL Chloride (98-107) mmol/L Carbon Dioxide (22-30) mmol/L BUN (7-17) mg/dL Glucose (74-99) mg/dL POC Glucose (mg/dL) 147 H 147 H (70-110) mg/dL Calcium (8.4-10.2) mg/dL Ionized Calcium Wicho (4.5-5.3) mg/dL Total Protein (6.3-8.2) g/dL 05/31/24 05/31/24 06/01/24 Range/Units 22:14 23:01 00:05 WBC (3.8-10.6) k/uL RBC (3.80-5.40) m/uL Hgb (11.4-16.0) gm/dL Hct (34.0-46.0) % RDW (11.5-15.5) % Plt Count (150-450) k/uL Neutrophils # (1.3-7.7) k/uL Lymphocytes # (1.0-4.8) k/uL ABG pH (7.35-7.45) ABG pCO2 (35-45) mmHg ABG pO2 (83-108) mmHg ABG Total CO2 (19-24) mmol/L ABG O2 Saturation (94-97) % Hemoglobin (11.4-16.0) gm/dL Chloride (98-107) mmol/L Carbon Dioxide (22-30) mmol/L BUN (7-17) mg/dL Glucose (74-99) mg/dL POC Glucose (mg/dL) 123 H 141 H 130 H (70-110) mg/dL Calcium (8.4-10.2) mg/dL Ionized Calcium Wicho (4.5-5.3) mg/dL Total Protein (6.3-8.2) g/dL 06/01/24 06/01/24 06/01/24 Range/Units 01:07 02:16 03:05 WBC (3.8-10.6) k/uL RBC (3.80-5.40) m/uL Hgb (11.4-16.0) gm/dL Hct (34.0-46.0) % RDW (11.5-15.5) % Plt Count (150-450) k/uL Neutrophils # (1.3-7.7) k/uL Lymphocytes # (1.0-4.8) k/uL ABG pH (7.35-7.45) ABG pCO2 (35-45) mmHg ABG pO2 (83-108) mmHg ABG Total CO2 (19-24) mmol/L ABG O2 Saturation (94-97) % Hemoglobin (11.4-16.0) gm/dL Chloride (98-107) mmol/L Carbon Dioxide (22-30) mmol/L BUN (7-17) mg/dL Glucose (74-99) mg/dL POC Glucose (mg/dL) 114 H 142 H 137 H (70-110) mg/dL Calcium (8.4-10.2) mg/dL Ionized Calcium Wicho (4.5-5.3) mg/dL Total Protein (6.3-8.2) g/dL 06/01/24 06/01/24 06/01/24 Range/Units 04:02 05:10 05:10 WBC 11.7 H (3.8-10.6) k/uL RBC 3.49 L (3.80-5.40) m/uL Hgb 9.4 L (11.4-16.0) gm/dL Hct 30.2 L (34.0-46.0) % RDW 16.4 H (11.5-15.5) % Plt Count 102 L (150-450) k/uL Neutrophils # 10.0 H (1.3-7.7) k/uL Lymphocytes # 0.9 L (1.0-4.8) k/uL ABG pH (7.35-7.45) ABG pCO2 (35-45) mmHg ABG pO2 (83-108) mmHg ABG Total CO2 (19-24) mmol/L ABG O2 Saturation (94-97) % Hemoglobin (11.4-16.0) gm/dL Chloride 109 H (98-107) mmol/L Carbon Dioxide 21 L (22-30) mmol/L BUN 19 H (7-17) mg/dL Glucose 103 H (74-99) mg/dL POC Glucose (mg/dL) 123 H (70-110) mg/dL Calcium 7.9 L (8.4-10.2) mg/dL Ionized Calcium Wicho 4.4 L (4.5-5.3) mg/dL Total Protein 5.8 L (6.3-8.2) g/dL 06/01/24 06/01/24 Range/Units 06:00 08:13 WBC (3.8-10.6) k/uL RBC (3.80-5.40) m/uL Hgb (11.4-16.0) gm/dL Hct (34.0-46.0) % RDW (11.5-15.5) % Plt Count (150-450) k/uL Neutrophils # (1.3-7.7) k/uL Lymphocytes # (1.0-4.8) k/uL ABG pH (7.35-7.45) ABG pCO2 (35-45) mmHg ABG pO2 (83-108) mmHg ABG Total CO2 (19-24) mmol/L ABG O2 Saturation (94-97) % Hemoglobin (11.4-16.0) gm/dL Chloride (98-107) mmol/L Carbon Dioxide (22-30) mmol/L BUN (7-17) mg/dL Glucose (74-99) mg/dL POC Glucose (mg/dL) 132 H 136 H (70-110) mg/dL Calcium (8.4-10.2) mg/dL Ionized Calcium Wicho (4.5-5.3) mg/dL Total Protein (6.3-8.2) g/dL Microbiology - Last 24 Hours (Table) 05/30/24 08:35 Urine Culture - Final Urine,Catheterized Assessment and Plan Plan: Post aortic valve replacement and single-vessel bypass surgery. The patient is currently postop day #2. The patient is currently on milrinone to augment the cardiac output. The cardiac index is currently at 2.6 and the patient is producing adequate blood pressure and urine output. The chest tubes are still in place. Output is quite diminished at this point in time. Postthoracotomy, extubated and the patient is currently on 2 L of oxygen nasal cannula Bicuspid aortic valve with severe aortic stenosis and preserved LV function Coronary artery disease with previous PCI to LAD that was done in January 2023 Morbid obesity with obstructive sleep apnea Hypertension Diabetes mellitus type 2 Hyperlipidemia History of COPD/asthma Peripheral neuropathy involving the lower extremities bilaterally Anemia of chronic disease Stage I chronic kidney disease Lumbar disc disease Previous history of TIA Plan Continue using the incentive spirometer and the patient is doing aggressive pulmonary toileting. Titrate oxygen flow and the patient is currently on 2 L of O2 nasal cannula may utilize the BiPAP overnight Continue aspirin and Plavix Continue metoprolol Keep the patient on a amiodarone for A-fib prophylaxis and her current cardiac rhythm is sinus Gradual wean of the Primacor We remove the chest tubes today Keep the patient's [place]-Gypsy in place as long as the patient still pressor dependent Keep the IV insulin drip for another 24 hours and the patient is running at 9 units an hour Clinically and hemodynamically stable and will continue to follow. Chest x-ray was noted. There is some increase in pulm vas congestion and the patient will be receiving a dose of Lasix
[2024-06-01 12:08] LABS: Glucose,Whole Blood 86 mg/dL (70-110)
[2024-06-01] MEDS: LOSARTAN 50 MG TAB PO SCH (12:25)
[2024-06-01 13:18] LABS: Glucose,Whole Blood 176 mg/dL (70-110)
[2024-06-01 14:16] LABS: Glucose,Whole Blood 214 mg/dL (70-110)
[2024-06-01] MEDS ORDERED: DEXTROSE 50% SYRINGE 50 ML IVP PRN ×2 (14:17)
[2024-06-01] MEDS: INSULIN DETEMIR (LEVEMIR) 100 UNIT/ML SYR SQ SCH (15:11)
[2024-06-01] MEDS: INSULIN ASPART (NovoLOG) 100 UNIT/ML VIAL SQ SCH (17:46)
[2024-06-01 20:24] LABS: Glucose,Whole Blood 231 mg/dL (70-110)
[2024-06-02 02:07] LABS: Glucose,Whole Blood 203 mg/dL (70-110)
[2024-06-02 04:20] LABS: Anisocytosis Slight; Basophils % (A) 0 %; Eosinophils # (A) 0.1 k/uL (0-0.7); Eosinophils % (A) 1 %; HCT 27.9 % (34.0-46.0); HGB 8.7 gm/dL (11.4-16.0); Hypochromasia Slight; Lymphocytes # (A) 1.3 k/uL (1.0-4.8); Lymphocytes % (A) 12 %; MCH 27.3 pg (25.0-35.0); MCHC 31.4 g/dL (31.0-37.0); MCV 86.9 fL (80.0-100.0); Mean Platelet Volume 7.8; Monocytes # (A) 0.6 k/uL (0-1.0); Monocytes % (A) 6 %; Neutrophils # (A) 8.1 k/uL (1.3-7.7); Neutrophils % (A) 79 %; RBC 3.21 m/uL (3.80-5.40); RDW 16.4 % (11.5-15.5); WBC 10.2 k/uL (3.8-10.6)
[2024-06-02 04:48] LABS: ALT 27 U/L (4-34); AST 49 U/L (14-36); African American GFR (CKD) >90 (>60 ml/min/1.73 sqM); Albumin 3.4 g/dL (3.5-5.0); Alkaline Phosphatase 57 U/L (38-126); Anion Gap 3 mmol/L; Blood Urea Nitrogen 23 mg/dL (7-17); Carbon Dioxide 23 mmol/L (22-30); Chloride 109 mmol/L (98-107); Glucose 189 mg/dL (74-99); Non-African American GFR(CKD) 80 (>60 ml/min/1.73 sqM); Potassium 4.1 mmol/L (3.5-5.1); Sodium 135 mmol/L (137-145); Total Protein 5.5 g/dL (6.3-8.2)
[2024-06-02 05:02] LABS: Platelet Count 91 k/uL (150-450)
[2024-06-02 06:26] LABS: Glucose,Whole Blood 225 mg/dL (70-110)
--- NOTE | 2024-06-02 08:01 | P.PN ---
Subjective Progress Note Date: 06/02/24 PROGRESS NOTE The patient is a 54-year-old female who presented yesterday to undergo aortic valve replacement because of severe bicuspid aortic valve stenosis. She received a size 23 pericardial bioprosthesis with single LOGAN to the LAD and closure of the left atrial appendage. She is extubated, sitting up in the chair. She is in sinus mechanism. She denies any dizziness or palpitations. She has chest soreness. She is on no vasopressors. She is status post stenting of the LAD, her IKER performed preoperatively showed a severe aortic stenosis with preserved systolic function. She had mild aortic regurgitation with mild mitral regurgitation preoperatively. She has a history of diabetes, hype rtension and hyperlipidemia. June 01: The patient is sitting up in the chair, has some chest soreness. She continues to be in sinus mechanism. She was started on milrinone because of low cardiac output. Her urinary output has been stable. She has no dizziness or palpitations and no significant nausea. Her breathing has been stable. Her EKG showed no acute ST segment changes. June 02: The patient feels better today, she is ambulating. She continues to be in sinus mechanism. Hemodynamically she is stable. She denies any chest discomfort, dizziness or palpitations. Her urinary output is stable. She has no nausea or vomiting. Medications: Amiodarone 400 mg twice a day, Lipitor 40 mg daily, Plavix 75 mg daily, insulin, metoprolol 25 mg 3 times daily, Protonix, Cozaar 50 mg daily PHYSICAL EXAMINATION: Blood pressure 108/60 heart rate 80 LUNGS: Decreased breath sounds at the bases HEART: Regular rate and rhythm, S1, S2. No S3. Systolic ejection murmur at the base ABDOMEN: Soft, nontender, no organomegaly EXTREMETIES: No edema LAB: WBC 10.2, hemoglobin 8.7, BUN 23, creatinine 0.82. Potassium 4.1 IMPRESSION: 1. Status post aortic valve replacement and CABG with LOGAN to the LAD 2. History of hypertension 3. Hyperlipidemia 4. Diabetes mellitus PLAN: 1. Follow blood pressure and adjust the dose of beta-neris as tolerated 2. Increase physical activity 3. Continue incentive spirometry 4. Depending on her progress further recommendations will be made Objective - Vital Signs Vital signs: Vital Signs Temp 98.2 F 06/02/24 04:00 Pulse 81 06/02/24 07:00 Resp 22 06/02/24 07:00 BP 116/62 06/02/24 07:00 Pulse Ox 96 06/02/24 07:00 FiO2 30 06/02/24 04:00 Intake & Output 06/01/24 06/02/24 06/02/24 18:59 06:59 18:59 Intake Total 9628.266 5016 Output Total 1038 635 Balance 888.711 7135 Weight 108.9 kg Intake: IV 1055 338 Injectate 80 Pressure Bags 105 78 Sodium Chloride 0.9% 1, 370 260 000 ml @ 30 mls/hr IV . Q24H [facility] Rx#:[id number] Vancomycin 1,500 mg In 500 Sodium Chloride 0.9% 500 ml 500 ml @ 167 mls/hr IVPB Q12HR [facility] Rx#: [id number] Intake, IV Titration 169.869 Amount Insulin Regular 100 unit 53.993 In Sodium Chloride 0.9% 100 ml @ Per Protocol IV .Q0M [facility] Rx#:[id number] Milrinone-D5w Pmx 20 mg 115.876 In Dextrose/Water 1 100ml .bag @ 0.1 MCG/KG/MIN 3. 024 mls/hr IV .Q24H [facility] Rx#:[id number] Oral 720 1600 Output: Chest Tube Drainage 20 Left Pleural 10 Mediastinal x2 10 Urine 1018 635 Other: Voiding Method Indwelling Catheter Indwelling Catheter ABP, PAP, CO, CI - Last Documented Arterial Blood Pressure 108/58 Pulmonary Artery Pressure 37/17 Cardiac Output 4.6 Cardiac Index 2.4 - Labs CBC & Chem 7: 06/02/24 04:10 06/02/24 04:10 Labs: Abnormal Lab Results - Last 24 Hours (Table) 06/01/24 06/01/24 06/01/24 Range/Units 08:13 09:17 10:13 RBC (3.80-5.40) m/uL Hgb (11.4-16.0) gm/dL Hct (34.0-46.0) % RDW (11.5-15.5) % Plt Count (150-450) k/uL Neutrophils # (1.3-7.7) k/uL Sodium (137-145) mmol/L Chloride (98-107) mmol/L BUN (7-17) mg/dL Glucose (74-99) mg/dL POC Glucose (mg/dL) 136 H 133 H 117 H (70-110) mg/dL Calcium (8.4-10.2) mg/dL AST (14-36) U/L Total Protein (6.3-8.2) g/dL Albumin (3.5-5.0) g/dL 06/01/24 06/01/24 06/01/24 Range/Units 13:17 14:15 20:23 RBC (3.80-5.40) m/uL Hgb (11.4-16.0) gm/dL Hct (34.0-46.0) % RDW (11.5-15.5) % Plt Count (150-450) k/uL Neutrophils # (1.3-7.7) k/uL Sodium (137-145) mmol/L Chloride (98-107) mmol/L BUN (7-17) mg/dL Glucose (74-99) mg/dL POC Glucose (mg/dL) 176 H 214 H 231 H (70-110) mg/dL Calcium (8.4-10.2) mg/dL AST (14-36) U/L Total Protein (6.3-8.2) g/dL Albumin (3.5-5.0) g/dL 06/02/24 06/02/24 06/02/24 Range/Units 02:06 04:10 04:10 RBC 3.21 L (3.80-5.40) m/uL Hgb 8.7 L (11.4-16.0) gm/dL Hct 27.9 L (34.0-46.0) % RDW 16.4 H (11.5-15.5) % Plt Count 91 L (150-450) k/uL Neutrophils # 8.1 H (1.3-7.7) k/uL Sodium 135 L (137-145) mmol/L Chloride 109 H (98-107) mmol/L BUN 23 H (7-17) mg/dL Glucose 189 H (74-99) mg/dL POC Glucose (mg/dL) 203 H (70-110) mg/dL Calcium 8.0 L (8.4-10.2) mg/dL AST 49 H (14-36) U/L Total Protein 5.5 L (6.3-8.2) g/dL Albumin 3.4 L (3.5-5.0) g/dL 06/02/24 Range/Units 06:25 RBC (3.80-5.40) m/uL Hgb (11.4-16.0) gm/dL Hct (34.0-46.0) % RDW (11.5-15.5) % Plt Count (150-450) k/uL Neutrophils # (1.3-7.7) k/uL Sodium (137-145) mmol/L Chloride (98-107) mmol/L BUN (7-17) mg/dL Glucose (74-99) mg/dL POC Glucose (mg/dL) 225 H (70-110) mg/dL Calcium (8.4-10.2) mg/dL AST (14-36) U/L Total Protein (6.3-8.2) g/dL Albumin (3.5-5.0) g/dL
--- NOTE | 2024-06-02 08:48 | P.PN ---
Subjective Progress Note Date: 06/02/24 Principal diagnosis: Severe bicuspid aortic valve stenosis with fusion of the right and the left cusps, coronary artery disease status with previous myocardial infarction post prior stenting to the left anterior descending artery with moderate proximal LAD stenosis, hypertension, hyperlipidemia, insulin-dependent diabetes mellitus, TIA a few years ago, obesity, obstructive sleep apnea using CPAP, COPD/asthma, hypothyroidism, anxiety disorder, previous tobacco dependence, occasional marijuana use. Family history of premature coronary artery disease with father diagnosed in his 50s. Preoperative urinary tract infection with E. coli, treated. Preoperative nasal swab positive for MSSA, treated. POD #3 single coronary artery bypass grafting using the in situ left intrama mmary artery to the left anterior descending artery, aortic valve replacement using a 23 mm Inspiris Resilia pericardial bioprosthesis, exclusion of the left atrial appendage using a 35 mm AtriClip, intraoperative transesophageal echocardiogram and epiaortic scanning, MEDISTIM graft flow measurement, reinforcement of the sternal closure with 2 plates sternalock EZ SYSTEM Postoperative acute blood loss anemia and thrombocytopenia, expected given hemodilution and cardiopulmonary bypass pump The patient was seen and examined this morning with Dr. Arroyo sitting up in recliner in no acute distress. Currently in sinus rhythm, hemodynamically stable. Currently on 2 L nasal cannula with oxygen saturation in the mid 90s, able to achieve 500 mL on her incentive spirometry with poor effort. Denies any significant chest pain currently although does state it hurts when she coughs, denies shortness of breath. Right internal jugular cordis, right radial arterial line remains. She has been ambulatory with nursing already this morning. No other new concerns. Objective - Vital Signs Vital signs: Vital Signs Temp 97.9 F 06/02/24 08:00 Pulse 85 06/02/24 08:00 Resp 13 06/02/24 08:00 BP 113/76 06/02/24 08:00 Pulse Ox 95 06/02/24 08:00 FiO2 3 06/02/24 08:00 Intake & Output 06/01/24 06/02/24 06/02/24 18:59 06:59 18:59 Intake Total 2094.781 4325 Output Total 1038 635 Balance 263.530 8717 Weight 108.9 kg Intake: IV 1055 338 Injectate 80 Pressure Bags 105 78 Sodium Chloride 0.9% 1, 370 260 000 ml @ 30 mls/hr IV . Q24H MICHAEL Rx#:[id number] Vancomycin 1,500 mg In 500 Sodium Chloride 0.9% 500 ml 500 ml @ 167 mls/hr IVPB Q12HR MICHAEL Rx#: [id number] Intake, IV Titration 169.869 Amount Insulin Regular 100 unit 53.993 In Sodium Chloride 0.9% 100 ml @ Per Protocol IV .Q0M MICHAEL Rx#:[id number] Milrinone-D5w Pmx 20 mg 115.876 In Dextrose/Water 1 100ml .bag @ 0.1 MCG/KG/MIN 3. 024 mls/hr IV .Q24H MICHAEL Rx#:[id number] Oral 720 1600 Output: Chest Tube Drainage 20 Left Pleural 10 Mediastinal x2 10 Urine 1018 635 Other: Voiding Method Indwelling Catheter Indwelling Catheter ABP, PAP, CO, CI - Last Documented Arterial Blood Pressure 126/64 Pulmonary Artery Pressure 37/17 Cardiac Output 4.6 Cardiac Index 2.4 - Exam CONSTITUTIONAL: Appears comfortable, cooperative, no acute distress RESPIRATORY: Lungs sounds diminished bilaterally. Respirations even, nonlabored. Currently on 2 L nasal cannula with oxygen saturation 96%. Able to achieve 500 mL on incentive spirometry. Weak cough. CARDIOVASCULAR: S1, S2 present. Regular rate and rhythm, sinus rhythm on telemetry. Sternum stable. Palpable peripheral pulses bilaterally. Trace generalized edema present. No calf pain or tenderness noted. Heart hugger in place with patient demonstrating appropriate use. Antiembolism stockings, SCDs present. GASTROINTESTINAL: Abdomen soft, nontender, nondistended. Active bowel sounds present 4 quadrants. Tolerating diet. Denies flatus, positive belching GENITOURINARY: Shea present draining clear, yellow urine. Output overnight 30-50 mL per hour, 1650 mL in the last 24 hours INTEGUMENTARY: Skin is warm and dry with evidence of good perfusion. Anterior chest incision well approximated and covered with dry intact dressing NEUROLOGIC: Cranial nerves II through XII intact MUSKULOSKELETAL: Able to move all extremities, strength equal bilaterally PSYCHIATRIC: Awake and alert, oriented to person place and time, flat affect, intact judgment and insight INVASIVE LINES AND TUBES: A/V epicardial pacemaker wires present, connected to generator, VVI mode with backup rate 50 bpm. Right internal jugular cordis, right radial arterial line present - Allied health notes Allied health notes reviewed: nursing - Labs CBC & Chem 7: 06/02/24 04:10 06/02/24 04:10 Labs: Abnormal Lab Results - Last 24 Hours (Table) 06/01/24 06/01/24 06/01/24 Range/Units 09:17 10:13 13:17 RBC (3.80-5.40) m/uL Hgb (11.4-16.0) gm/dL Hct (34.0-46.0) % RDW (11.5-15.5) % Plt Count (150-450) k/uL Neutrophils # (1.3-7.7) k/uL Sodium (137-145) mmol/L Chloride (98-107) mmol/L BUN (7-17) mg/dL Glucose (74-99) mg/dL POC Glucose (mg/dL) 133 H 117 H 176 H (70-110) mg/dL Calcium (8.4-10.2) mg/dL AST (14-36) U/L Total Protein (6.3-8.2) g/dL Albumin (3.5-5.0) g/dL 06/01/24 06/01/24 06/02/24 Range/Units 14:15 20:23 02:06 RBC (3.80-5.40) m/uL Hgb (11.4-16.0) gm/dL Hct (34.0-46.0) % RDW (11.5-15.5) % Plt Count (150-450) k/uL Neutrophils # (1.3-7.7) k/uL Sodium (137-145) mmol/L Chloride (98-107) mmol/L BUN (7-17) mg/dL Glucose (74-99) mg/dL POC Glucose (mg/dL) 214 H 231 H 203 H (70-110) mg/dL Calcium (8.4-10.2) mg/dL AST (14-36) U/L Total Protein (6.3-8.2) g/dL Albumin (3.5-5.0) g/dL 06/02/24 06/02/24 06/02/24 Range/Units 04:10 04:10 06:25 RBC 3.21 L (3.80-5.40) m/uL Hgb 8.7 L (11.4-16.0) gm/dL Hct 27.9 L (34.0-46.0) % RDW 16.4 H (11.5-15.5) % Plt Count 91 L (150-450) k/uL Neutrophils # 8.1 H (1.3-7.7) k/uL Sodium 135 L (137-145) mmol/L Chloride 109 H (98-107) mmol/L BUN 23 H (7-17) mg/dL Glucose 189 H (74-99) mg/dL POC Glucose (mg/dL) 225 H (70-110) mg/dL Calcium 8.0 L (8.4-10.2) mg/dL AST 49 H (14-36) U/L Total Protein 5.5 L (6.3-8.2) g/dL Albumin 3.4 L (3.5-5.0) g/dL - Imaging and Cardiology Chest x-ray: image reviewed Assessment and Plan Assessment: Severe bicuspid aortic valve stenosis with fusion of the right and the left cusps, S/P aortic valve replacement Coronary artery disease status with previous myocardial infarction post prior stenting to the left anterior descending artery with moderate proximal LAD stenosis, S/P single coronary artery bypass grafting Postoperative acute blood loss anemia and thrombocytopenia, expected given hemodilution and cardiopulmonary bypass pump History of hypertension Hyperlipidemia, cholesterol 251, triglycerides 267, LDL 169 Insulin-dependent diabetes mellitus, preoperative hemoglobin A1c 7.5% TIA a few years ago Obesity Obstructive sleep apnea using CPAP COPD/asthma, preoperative FEV1 82% of predicted Hypothyroidism, preoperative TSH 0.406 Anxiety disorder Previous tobacco dependence Occasional marijuana use Family history of premature coronary artery disease with father diagnosed in his 50s Preoperative urinary tract infection with E. coli, treated Preoperative nasal swab positive for MSSA, treated Plan: Continue to maximize medical therapy with aspirin, statin, Plavix, beta-neris. Will increase beta-neris therapy as tolerated, increased to 50 mg twice daily today Continue amiodarone for A-fib prophylaxis. Patient has had no atrial fibrillation up to this point Continue low-dose Cozaar for afterload reduction Wean O2 as tolerated. Encourage incentive spirometry use 10 times every hour while awake. Bronchodilators per pulmonology Will monitor daily labs and x-rays, electrolyte replacement per protocol. Will give 40 mg IV push Lasix today Increase activity, ambulate as tolerated. PT/OT/cardiac rehab consulted GI/DVT prophylaxis Pain control per current medication regimen Insulin management per internal medicine. Patient needs better blood sugar control, otherwise needs to go back on continuous IV insulin Discontinue Cordis, arterial line Ground epicardial wires Continue Shea catheter after diuresis from Lasix, may bladder scan and straight cath for greater than 300 mL residual Continue to monitor and record strict accurate intake and output Daily weights Will place transfer orders for 3 S. cardiac stepdown unit, may transfer when bed available More recommendations to follow as patient progresses
[2024-06-02] MEDS: FUROSEMIDE 10 MG/ML 4 ML VIAL IV STA (09:00)
[2024-06-02] MEDS: METOPROLOL TARTRATE 50 MG TAB PO SCH (09:01)
--- NOTE | 2024-06-02 09:23 | XR ---
EXAMINATION TYPE: XR chest 1V portable DATE OF EXAM: 06/02/2024 COMPARISON: 06/02/2024 INDICATION: Previous abnormal TECHNIQUE: Single frontal view of the chest is obtained. FINDINGS: The heart size is prominent. The pulmonary vasculature is normal. Mild bibasilar infiltrates are present. Going for atelectasis. Sternotomy wires are present from cardiac valve surgery. IMPRESSION: 1. Bibasilar infiltrates. Correlate for atelectasis. [facility], , 06/02/2024 9:21 AM
--- NOTE | 2024-06-02 09:41 | XR ---
EXAMINATION TYPE: XR chest 1V portable DATE OF EXAM: 06/02/2024 COMPARISON: 06/02/2024 INDICATION: Postcardiac surgery TECHNIQUE: Single frontal view of the chest is obtained. FINDINGS: The heart size is normal. The pulmonary vasculature is normal. Right basilar infiltrates are present greater on the left. Rotated to the left. IMPRESSION: 1. Bibasilar infiltrates. Correlate for atelectasis and pneumonia [facility], , 06/02/2024 9:38 AM
[2024-06-02] MEDS: INSULIN DETEMIR (LEVEMIR) 100 UNIT/ML SYR SQ ONE (10:30)
[2024-06-02 11:43] LABS: Glucose,Whole Blood 218 mg/dL (70-110)
--- NOTE | 2024-06-02 14:48 | CONS ---
CONSULTATION REASON FOR CONSULTATION: Advice regarding diabetes mellitus and other medical issues, requested by Cardiothoracic Surgery. HISTORY OF PRESENT ILLNESS: This is a 54-year-old woman with a past medical history of multiple medical problems, underwent aortic valve replacement with pericardial bioprosthesis, exclusion of the left atrial appendage and as well as CABG x1. The patient is extubated. The patient is on insulin drip at 8.5 units/hour and blood sugar is around 140. There is no history of any fever, rigors, or chills. Chest tube is in situ. PAST MEDICAL HISTORY: Reviewed include asthma, diabetes mellitus, hypertension. Rest of the history and rest of the chart is also reviewed. HOME MEDICATIONS: Reviewed include insulin 50 units subcu at bedtime and 25 units before meals t.i.d. Rest of the medications and doses are reviewed. ALLERGIES: Multiple including adhesives. FAMILY HISTORY: History of skin cancer. SOCIAL HISTORY: Previous history of smoking. REVIEW OF SYSTEMS: Fourteen-point review of systems negative except as mentioned earlier. PHYSICAL EXAMINATION: VITAL SIGNS: Pulse is 68, blood pressure 94/50, respirations 12. HEENT: Conjunctivae normal. CARDIOVASCULAR: S1, S2. RESPIRATIONS: A few scattered rhonchi. ABDOMEN: Soft, nontender. LEGS: No edema. No cyanosis. NERVOUS SYSTEM: Nonfocal. LABORATORY DATA: ABG is 7.27. Rest of the labs are noted. ASSESSMENT: 1. Status post aortic valve replacement with bioprosthetic pericardial valve and as well as coronary artery bypass graft x1 and exclusion of left atrial appendage. 2. Diabetes mellitus, type 2, on insulin drip. 3. History of asthma, chronic obstructive pulmonary disease. 4. Hypertension. 5. Hyperlipidemia. 6. History of sleep apnea. 7. History of coronary artery disease stent. 8. Anxiety, depression, panic disorder history. RECOMMENDATIONS AND DISCUSSION: This is a 54-year-old woman, who presented with multiple complex medical issues, we will monitor the patient closely. Recommend to continue the current medications. Continue insulin drip at this time per 48 hours per protocol. Otherwise, once the patient started eating, the home dose of insulin may be started with any further adjustment needed depending upon the insulin requirement during the hospitalization. We will follow the patient closely with you. Incentive spirometry. DVT prophylaxis. Rest of the recommendations per Cardiothoracic Surgery and as well as Pulmonary. Further recommendations to follow. MMODL / IJN: [id number] /
--- NOTE | 2024-06-02 14:50 | PN ---
PROGRESS NOTE DATE OF SERVICE: 06/01/2024 SUBJECTIVE: This is a 54-year-old woman, who was admitted after CABG and aortic valve replacement, is improving significantly. No chest pain. No palpitations. The patient is off insulin drip. OBJECTIVE: VITAL SIGNS: Pulse is 81, blood pressure 121/54, respirations 20. CHEST: A few scattered rhonchi. CARDIOVASCULAR: S1, S2. ABDOMEN: Soft. LABORATORY DATA: Accu-Cheks noted. ASSESSMENT: 1. Status post aortic valve replacement. 2. Status post coronary artery bypass graft. 3. Diabetes mellitus, type 2. 4. Hypertension. 5. Multiple medical issues. RECOMMENDATIONS AND DISCUSSION: Recommend to continue current medications and continue symptomatic treatment. At this time, I recommend resume the home medications starting with long and short acting and monitor blood sugars closely. Consistent carb diet. Continue to monitor. Further recommendations to follow. MMFIGUEROAL / IJN: [id number] /
--- NOTE | 2024-06-02 15:53 | P.PN ---
Subjective Progress Note Date: 06/02/24 This is a 54-year-old female patient was being seen in the intensive care unit following her cardiac surgery. Patient underwent a aortic valve replacement as the patient was found to have severe aortic stenosis with a bicuspid aortic valve and the patient underwent a single-vessel bypass surgery. Her cardiac catheterization was done on 10/06/2023 and the patient has 50% stenosis of the LAD. Echocardiogram revealed bicuspid aortic valve with a preserved LV function with an ejection fraction of 55 to 60%. At this point in time, the patient is sedated on propofol and the patient is calm and comfortable. Intubated on mechanical ventilator. She is on assist-control mode of mechanical ventilation at rate of 14, tidal volume of 350, FiO2 of 100% and a PEEP of 10. The patient has 3 different chest tubes in place, mediastinal and left pleural. The chest x-ray shows no evidence of any pneumothorax. ET tube is in a good location. No significant atelectatic changes. There are some increased perihilar pulmonary vascular markings. No evidence of any pneumothorax. Hemodynamically stable. Cardiac output is at 4.7 with an index of 2.4 and the PA pressure 29/17 with a CVP of 9. Cardiac rhythm is sinus. Adequate urine output. No other significant events reported postop. WBC was at 9.1 with hemoglobin 10.7 and a platelet count of 102. Blood gas showed a pH of 7.25 with a pCO2 of 53 and pO2 of 318. The BUN is 16 with a creatinine of 0.6 and a sodium levels at 138 and a bicarb level is at 21 with a potassium level of 4.0 05/31/2024, patient is being seen for a follow-up. The patient was weaned off the mechanical ventilator and patient was extubated to BiPAP and currently she is on oxygen at 2 L/min nasal cannula. She is postop day #1 and she is awake and alert and sitting up in a chair. Her cardiac output is at 3.6 with an index of 1.8. PA pressures are 33/13 and a CVP is 11. She is having some lower urine output and lower blood pressure. Based on that, the patient is being given IV albumin. Chest tubes are in place. The patient has 2 mediastinal chest tube and a pleural chest tube on the left and output has been in the order of 20 to 30 cc an hour. No evidence of any air leak. Chest x-ray from today shows no evidence of any pneumothorax, [place]-Gypsy catheter in place and the patient continues to have some atelectatic changes left lung base. Cardiac rhythm is sinus. WBC count is at 9.4 with a hemoglobin 10.5 and a platelet count of 121. The BUN is 15 with a creatinine of 0.72 and a sodium levels at 140. The patient is awake and alert and communicating. No other significant events overnight. The patient is using the incentive spirometer and she is pulling approximately 500 cc on her incentive spirometer. No other significant events overnight. On 06/01/2024, the patient is being seen for a follow-up. The patient is still recovering from a cardiac surgery. The patient is currently postoperative day #2 following coronary bypass surgery and aortic valve replacement. Noted the patient was weaned off the mechanical ventilator and the patient was extubated to a BiPAP and currently the patient is on oxygen by nasal cannula which is at 2 L. The patient did encounter some hypotension and low cardiac output yesterday. Based on that, the patient was started on milrinone which is currently running at 0.2 mcg/kg/min. Since then, his urine output is improved and the cardiac output is also improved and the patient's most recent cardiac output is 5.1 with an index of 2.6 with a PA pressure of 34/13. Blood pressure is stable for now. No significant hypotension. No altered mentation. Chest x-ray from today is showing cardiomegaly and mild pulm vessel congestion. Otherwise, no other acute abnormalities are noted. The patient continues to have the chest tubes in place with the left lower chest tube has drained around 150 cc over the past 24 hours and the mediastinal chest tube has drained approximately 150 cc over the past 24 hours. The patient has a right IJ [place]-Gypsy catheter in place. Awake and alert and communicating. Urine output is noted of 30 to 50 cc an hour. WBC count 11.7 with a hemoglobin of 0.4 and a platelet count of 102. BUN is 19 with a creatinine of 0.7 and sodium levels at 138. Remains on insulin drip which is running at 9 units an hour. Underlying cardiac rhythm is sinus. No other significant events overnight. 06/02/2024, the patient is being seen for a follow-up. The patient is sitting up in a chair and the patient is calm and comfortable hemodynamic stable on room air oxygen. Chest tubes have been removed. [place]-Gypsy catheter has been removed. The patient is on no pressors for now. The patient is incentive spirometer. Chest x-ray from today shows no significant abnormalities. Lungs are adequately expanded. Pulmonary vasculature is within normal limits. Otherwise, the patient remains in normal sinus rhythm. WBC count of 10.2 with a hemoglobin 8.7 and platelet count of 91. BUN 23 with a creatinine 0.8 and sodium levels at 135. She is using the incentive spirometer. She is ambulating. No other significant events overnight. No altered mentation. No angina or palpitations. Objective - Vital Signs Vital signs: Vital Signs Temp 97.9 F 06/02/24 08:00 Pulse 85 06/02/24 08:00 Resp 13 06/02/24 08:00 BP 113/76 06/02/24 08:00 Pulse Ox 95 06/02/24 08:00 FiO2 3 06/02/24 08:00 Intake & Output 06/01/24 06/02/24 06/02/24 18:59 06:59 18:59 Intake Total 0498.904 5014 26 Output Total 1038 635 35 Balance 285.470 4396 -9 Weight 108.9 kg Intake: IV 1055 338 26 Injectate 80 Pressure Bags 105 78 6 Sodium Chloride 0.9% 1, 370 260 20 000 ml @ 30 mls/hr IV . Q24H MICHAEL Rx#:[id number] Vancomycin 1,500 mg In 500 Sodium Chloride 0.9% 500 ml 500 ml @ 167 mls/hr IVPB Q12HR MICHAEL Rx#: [id number] Intake, IV Titration 169.869 Amount Insulin Regular 100 unit 53.993 In Sodium Chloride 0.9% 100 ml @ Per Protocol IV .Q0M MICHAEL Rx#:[id number] Milrinone-D5w Pmx 20 mg 115.876 In Dextrose/Water 1 100ml .bag @ 0.1 MCG/KG/MIN 3. 024 mls/hr IV .Q24H MICHAEL Rx#:[id number] Oral 720 1600 Output: Chest Tube Drainage 20 Left Pleural 10 Mediastinal x2 10 Urine 1018 635 35 Other: Voiding Method Indwelling Catheter Indwelling Catheter ABP, PAP, CO, CI - Last Documented Arterial Blood Pressure 126/64 Pulmonary Artery Pressure 37/17 Cardiac Output 4.6 Cardiac Index 2.4 - Exam CONSTITUTIONAL: Appears comfortable, cooperative, no acute distress RESPIRATORY: Lungs sounds diminished bilaterally. Respirations even, nonl abored. Currently on 2 L nasal cannula with oxygen saturation 96%. Able to achieve 500 mL on incentive spirometry. Weak cough. CARDIOVASCULAR: S1, S2 present. Regular rate and rhythm, sinus rhythm on telemetry. Sternum stable. Palpable peripheral pulses bilaterally. Trace generalized edema present. No calf pain or tenderness noted. Heart hugger in place with patient demonstrating appropriate use. Antiembolism stockings, SCDs present. GASTROINTESTINAL: Abdomen soft, nontender, nondistended. Active bowel sounds present 4 quadrants. Tolerating diet. Denies flatus, positive belching GENITOURINARY: Shea present draining clear, yellow urine. Output overnight 30-50 mL per hour, 1650 mL in the last 24 hours INTEGUMENTARY: Skin is warm and dry with evidence of good perfusion. Anterior chest incision well approximated and covered with dry intact dressing NEUROLOGIC: Cranial nerves II through XII intact MUSKULOSKELETAL: Able to move all extremities, strength equal bilaterally PSYCHIATRIC: Awake and alert, oriented to person place and time, flat affect, intact judgment and insight INVASIVE LINES AND TUBES: A/V epicardial pacemaker wires present, connected to generator, VVI mode with backup rate 50 bpm. Right internal jugular cordis, right radial arterial line present - Labs CBC & Chem 7: 06/02/24 04:10 06/02/24 04:10 Labs: Abnormal Lab Results - Last 24 Hours (Table) 06/01/24 06/01/24 06/01/24 Range/Units 09:17 10:13 13:17 RBC (3.80-5.40) m/uL Hgb (11.4-16.0) gm/dL Hct (34.0-46.0) % RDW (11.5-15.5) % Plt Count (150-450) k/uL Neutrophils # (1.3-7.7) k/uL Sodium (137-145) mmol/L Chloride (98-107) mmol/L BUN (7-17) mg/dL Glucose (74-99) mg/dL POC Glucose (mg/dL) 133 H 117 H 176 H (70-110) mg/dL Calcium (8.4-10.2) mg/dL AST (14-36) U/L Total Protein (6.3-8.2) g/dL Albumin (3.5-5.0) g/dL 06/01/24 06/01/24 06/02/24 Range/Units 14:15 20:23 02:06 RBC (3.80-5.40) m/uL Hgb (11.4-16.0) gm/dL Hct (34.0-46.0) % RDW (11.5-15.5) % Plt Count (150-450) k/uL Neutrophils # (1.3-7.7) k/uL Sodium (137-145) mmol/L Chloride (98-107) mmol/L BUN (7-17) mg/dL Glucose (74-99) mg/dL POC Glucose (mg/dL) 214 H 231 H 203 H (70-110) mg/dL Calcium (8.4-10.2) mg/dL AST (14-36) U/L Total Protein (6.3-8.2) g/dL Albumin (3.5-5.0) g/dL 06/02/24 06/02/24 06/02/24 Range/Units 04:10 04:10 06:25 RBC 3.21 L (3.80-5.40) m/uL Hgb 8.7 L (11.4-16.0) gm/dL Hct 27.9 L (34.0-46.0) % RDW 16.4 H (11.5-15.5) % Plt Count 91 L (150-450) k/uL Neutrophils # 8.1 H (1.3-7.7) k/uL Sodium 135 L (137-145) mmol/L Chloride 109 H (98-107) mmol/L BUN 23 H (7-17) mg/dL Glucose 189 H (74-99) mg/dL POC Glucose (mg/dL) 225 H (70-110) mg/dL Calcium 8.0 L (8.4-10.2) mg/dL AST 49 H (14-36) U/L Total Protein 5.5 L (6.3-8.2) g/dL Albumin 3.4 L (3.5-5.0) g/dL Assessment and Plan Plan: Post aortic valve replacement and single-vessel bypass surgery. The patient is currently postop day #3. The patient is hemodynamically stable on no pressors. [place]-Gy[place] catheter has been removed. Adequate blood pressure. Adequate urine output. Postthoracotomy, extubated and the patient is currently on room air oxygen. All of the chest tubes have been removed. Bicuspid aortic valve with severe aortic stenosis and preserved LV function Coronary artery disease with previous PCI to LAD that was done in January 2023 Morbid obesity with obstructive sleep apnea Hypertension Diabetes mellitus type 2 Hyperlipidemia History of COPD/asthma Peripheral neuropathy involving the lower extremities bilaterally Anemia of chronic disease Stage I chronic kidney disease Lumbar disc disease Previous history of TIA Plan Continue using the incentive spirometer and the patient is doing aggressive pulmonary toileting. The patient is currently on room air oxygen Continue aspirin and Plavix Continue metoprolol Keep the patient on a amiodarone for A-fib prophylaxis and her current cardiac rhythm is sinus Primacor has been discontinued Chest tubes were removed [place]-Gypsy catheter has been removed Patient was started on insulin Levemir 40 units twice a day and insulin replacement discontinued. The patient is also on insulin sliding scale coverage. Clinically and hemodynamically stable and will continue to follow. Will continue to follow.
[2024-06-02 16:41] LABS: Glucose,Whole Blood 180 mg/dL (70-110)
[2024-06-02 20:19] LABS: Glucose,Whole Blood 173 mg/dL (70-110)
[2024-06-02] MEDS: INSULIN DETEMIR (LEVEMIR) 100 UNIT/ML SYR SQ SCH (21:45)
[2024-06-03 06:15] LABS: Anisocytosis Slight; HCT 28.7 % (34.0-46.0); Hypochromasia Marked; MCH 28.1 pg (25.0-35.0); MCHC 31.5 g/dL (31.0-37.0); MCV 89.1 fL (80.0-100.0); Mean Platelet Volume 8.2; Platelet Count 123 k/uL (150-450); RBC 3.22 m/uL (3.80-5.40); RDW 16.6 % (11.5-15.5); WBC 9.5 k/uL (3.8-10.6)
[2024-06-03 06:16] LABS: African American GFR (CKD) 70 (>60 ml/min/1.73 sqM); Anion Gap 4 mmol/L; Blood Urea Nitrogen 30 mg/dL (7-17); Calcium 8.4 mg/dL (8.4-10.2); Carbon Dioxide 23 mmol/L (22-30); Chloride 108 mmol/L (98-107); Glucose 129 mg/dL (74-99); Magnesium 2.2 mg/dL (1.6-2.3); Non-African American GFR(CKD) 61 (>60 ml/min/1.73 sqM); Sodium 135 mmol/L (137-145)
[2024-06-03 06:46] LABS: Glucose,Whole Blood 133 mg/dL (70-110)
--- NOTE | 2024-06-03 07:38 | P.PN ---
Subjective Progress Note Date: 06/03/24 PROGRESS NOTE The patient is a 54-year-old female who presented yesterday to undergo aortic valve replacement because of severe bicuspid aortic valve stenosis. She received a size 23 pericardial bioprosthesis with single LOGAN to the LAD and closure of the left atrial appendage. She is extubated, sitting up in the chair. She is in sinus mechanism. She denies any dizziness or palpitations. She has chest soreness. She is on no vasopressors. She is status post stenting of the LAD, her IKER performed preoperatively showed a severe aortic stenosis with preserved systolic function. She had mild aortic regurgitation with mild mitral regurgitation preoperatively. She has a history of diabetes, hype rtension and hyperlipidemia. June 01: The patient is sitting up in the chair, has some chest soreness. She continues to be in sinus mechanism. She was started on milrinone because of low cardiac output. Her urinary output has been stable. She has no dizziness or palpitations and no significant nausea. Her breathing has been stable. Her EKG showed no acute ST segment changes. June 02: The patient feels better today, she is ambulating. She continues to be in sinus mechanism. Hemodynamically she is stable. She denies any chest discomfort, dizziness or palpitations. Her urinary output is stable. She has no nausea or vomiting. June 03: The patient is feeling better today, she is ambulating and feels stronger. She has no anginal pain. She continues to be in sinus mechanism and hemodynamically stable. Her urinary output has been stable. She has no nausea or vomiting. She is on no vasopressors. Medications: Amiodarone 400 mg twice a day, Lipitor 40 mg daily, Plavix 75 mg daily, insulin, metoprolol 50 mg 2 times daily, Protonix, Cozaar 50 mg daily PHYSICAL EXAMINATION: Blood pressure 104/69 heart rate 74 LUNGS: Clear to auscultation HEART: Regular rate and rhythm, S1, S2. No S3. Systolic ejection murmur at the base ABDOMEN: Soft, nontender, no organomegaly EXTREMETIES: No edema LAB: WBC 9.5, hemoglobin 9.0, BUN 30, creatinine 1.03. Potassium 4.0 IMPRESSION: 1. Status post aortic valve replacement and CABG with LOGAN to the LAD 2. History of hypertension 3. Hyperlipidemia 4. Diabetes mellitus PLAN: 1. Continue present therapy 2. Increase physical activity and incentive spirometry 3. Taper amiodarone per protocol 4. Probable discharge home in the next 24 to 48 hours Objective - Vital Signs Vital signs: Vital Signs Temp 98.1 F 06/03/24 00:00 Pulse 74 06/03/24 07:00 Resp 27 H 06/03/24 07:00 BP 104/69 06/03/24 07:00 Pulse Ox 95 06/03/24 07:00 FiO2 30 06/03/24 04:00 Intake & Output 06/02/24 06/03/24 06/03/24 18:59 06:59 18:59 Intake Total 572 Output Total 1475 250 Balance -903 -250 Weight 109.5 kg Intake: IV 72 Pressure Bags 12 Sodium Chloride 0.9% 1, 60 000 ml @ 30 mls/hr IV . Q24H [facility] Rx#:[id number] Oral 500 Output: Urine 1475 250 Other: Voiding Method Toilet Toilet # Voids 1 # Bowel Movements 1 ABP, PAP, CO, CI - Last Documented Arterial Blood Pressure 126/64 Pulmonary Artery Pressure 37/17 Cardiac Output 4.6 Cardiac Index 2.4 - Labs CBC & Chem 7: 06/03/24 03:10 06/03/24 03:10 Labs: Abnormal Lab Results - Last 24 Hours (Table) 06/02/24 06/02/24 06/02/24 Range/Units 04:10 11:42 16:40 RBC (3.80-5.40) m/uL Hgb (11.4-16.0) gm/dL Hct (34.0-46.0) % RDW (11.5-15.5) % Plt Count (150-450) k/uL Sodium (137-145) mmol/L Chloride (98-107) mmol/L BUN (7-17) mg/dL Glucose (74-99) mg/dL POC Glucose (mg/dL) 218 H 180 H (70-110) mg/dL Hemoglobin A1c 7.5 H (<=6.0) % 06/02/24 06/03/24 06/03/24 Range/Units 20:18 03:10 03:10 RBC 3.22 L (3.80-5.40) m/uL Hgb 9.0 L (11.4-16.0) gm/dL Hct 28.7 L (34.0-46.0) % RDW 16.6 H (11.5-15.5) % Plt Count 123 L (150-450) k/uL Sodium 135 L (137-145) mmol/L Chloride 108 H (98-107) mmol/L BUN 30 H (7-17) mg/dL Glucose 129 H (74-99) mg/dL POC Glucose (mg/dL) 173 H (70-110) mg/dL Hemoglobin A1c (<=6.0) % 06/03/24 Range/Units 06:45 RBC (3.80-5.40) m/uL Hgb (11.4-16.0) gm/dL Hct (34.0-46.0) % RDW (11.5-15.5) % Plt Count (150-450) k/uL Sodium (137-145) mmol/L Chloride (98-107) mmol/L BUN (7-17) mg/dL Glucose (74-99) mg/dL POC Glucose (mg/dL) 133 H (70-110) mg/dL Hemoglobin A1c (<=6.0) %
[2024-06-03] MEDS ORDERED: oxyCODONE-APAP 5-325MG 1 EACH TAB PO PRN (08:38)
--- NOTE | 2024-06-03 08:47 | P.PN ---
Subjective Progress Note Date: 06/03/24 Principal diagnosis: Severe bicuspid aortic valve stenosis with fusion of the right and the left cusps, coronary artery disease status with previous myocardial infarction post prior stenting to the left anterior descending artery with moderate proximal LAD stenosis, hypertension, hyperlipidemia, insulin-dependent diabetes mellitus, TIA a few years ago, obesity, obstructive sleep apnea using CPAP, COPD/asthma, hypothyroidism, anxiety disorder, previous tobacco dependence, occasional marijuana use. Family history of premature coronary artery disease with father diagnosed in his 50s. Preoperative urinary tract infection with E. coli, treated. Preoperative nasal swab positive for MSSA, treated. POD #4 single coronary artery bypass grafting using the in situ left intrama mmary artery to the left anterior descending artery, aortic valve replacement using a 23 mm Inspiris Resilia pericardial bioprosthesis, exclusion of the left atrial appendage using a 35 mm AtriClip, intraoperative transesophageal echocardiogram and epiaortic scanning, MEDISTIM graft flow measurement, reinforcement of the sternal closure with 2 plates sternalock EZ SYSTEM Postoperative acute blood loss anemia and thrombocytopenia, expected given hemodilution and cardiopulmonary bypass pump The patient was seen and examined this morning with Dr. Chan sitting up in recliner in the ICU in no acute distress. Currently in sinus rhythm, hemodynamically stable. Currently on room air with oxygen saturation in the mid 90s, able to achieve 1000 mL on her incentive spirometry with better effort. States pain is mostly controlled with current medication regimen although she is asking for her home dose of Percocet, denies shortness of breath. She has been ambulatory with nursing. No other new concerns. Objective - Vital Signs Vital signs: Vital Signs Temp 97.7 F 06/03/24 07:49 Pulse 73 06/03/24 07:49 Resp 20 06/03/24 07:49 BP 131/80 06/03/24 07:49 Pulse Ox 94 L 06/03/24 07:49 FiO2 30 06/03/24 04:00 Intake & Output 06/02/24 06/03/24 06/03/24 18:59 06:59 18:59 Intake Total 572 Output Total 1475 250 750 Balance -903 -250 -750 Weight 109.5 kg Intake: IV 72 Pressure Bags 12 Sodium Chloride 0.9% 1, 60 000 ml @ 30 mls/hr IV . Q24H [facility] Rx#:[id number] Oral 500 Output: Urine 1475 250 750 Other: Voiding Method Toilet Toilet Toilet # Voids 1 # Bowel Movements 1 ABP, PAP, CO, CI - Last Documented Arterial Blood Pressure 126/64 Pulmonary Artery Pressure 37/17 Cardiac Output 4.6 Cardiac Index 2.4 - Exam CONSTITUTIONAL: Appears comfortable, cooperative, no acute distress RESPIRATORY: Lungs sounds diminished bilaterally. Respirations even, nonlabored. Currently on room air with oxygen saturation 94%. Able to achieve 1000 mL on incentive spirometry. Dan nonproductive cough. CARDIOVASCULAR: S1, S2 present. Regular rate and rhythm, sinus rhythm on telemetry. Sternum stable. Palpable peripheral pulses bilaterally. Trace generalized edema present. No calf pain or tenderness noted. Heart hugger in place with patient demonstrating appropriate use. Antiembolism stockings, SCDs present. GASTROINTESTINAL: Abdomen soft, nontender, nondistended. Active bowel sounds present 4 quadrants. Tolerating diet. Positive bowel movement 06/02 GENITOURINARY: Continues to void, output 1475 mL in the last 24 hours INTEGUMENTARY: Skin is warm and dry with evidence of good perfusion. Anterior chest incision well approximated NEUROLOGIC: Cranial nerves II through XII intact MUSKULOSKELETAL: Able to move all extremities, strength equal bilaterally PSYCHIATRIC: Awake and alert, oriented to person place and time, flat affect, intact judgment and insight INVASIVE LINES AND TUBES: A/V epicardial pacemaker wires present, grounded - Allied health notes Allied health notes reviewed: nursing - Labs CBC & Chem 7: 06/03/24 03:10 06/03/24 03:10 Labs: Abnormal Lab Results - Last 24 Hours (Table) 06/02/24 06/02/24 06/02/24 Range/Units 04:10 11:42 16:40 RBC (3.80-5.40) m/uL Hgb (11.4-16.0) gm/dL Hct (34.0-46.0) % RDW (11.5-15.5) % Plt Count (150-450) k/uL Sodium (137-145) mmol/L Chloride (98-107) mmol/L BUN (7-17) mg/dL Glucose (74-99) mg/dL POC Glucose (mg/dL) 218 H 180 H (70-110) mg/dL Hemoglobin A1c 7.5 H (<=6.0) % 06/02/24 06/03/24 06/03/24 Range/Units 20:18 03:10 03:10 RBC 3.22 L (3.80-5.40) m/uL Hgb 9.0 L (11.4-16.0) gm/dL Hct 28.7 L (34.0-46.0) % RDW 16.6 H (11.5-15.5) % Plt Count 123 L (150-450) k/uL Sodium 135 L (137-145) mmol/L Chloride 108 H (98-107) mmol/L BUN 30 H (7-17) mg/dL Glucose 129 H (74-99) mg/dL POC Glucose (mg/dL) 173 H (70-110) mg/dL Hemoglobin A1c (<=6.0) % 06/03/24 Range/Units 06:45 RBC (3.80-5.40) m/uL Hgb (11.4-16.0) gm/dL Hct (34.0-46.0) % RDW (11.5-15.5) % Plt Count (150-450) k/uL Sodium (137-145) mmol/L Chloride (98-107) mmol/L BUN (7-17) mg/dL Glucose (74-99) mg/dL POC Glucose (mg/dL) 133 H (70-110) mg/dL Hemoglobin A1c (<=6.0) % - Imaging and Cardiology Chest x-ray: image reviewed Assessment and Plan Assessment: Severe bicuspid aortic valve stenosis with fusion of the right and the left cusps, S/P aortic valve replacement Coronary artery disease status with previous myocardial infarction post prior stenting to the left anterior descending artery with moderate proximal LAD stenosis, S/P single coronary artery bypass grafting Postoperative acute blood loss anemia and thrombocytopenia, expected given hemodilution and cardiopulmonary bypass pump History of hypertension Hyperlipidemia, cholesterol 251, triglycerides 267, LDL 169 Insulin-dependent diabetes mellitus, preoperative hemoglobin A1c 7.5% TIA a few years ago Obesity Obstructive sleep apnea using CPAP COPD/asthma, preoperative FEV1 82% of predicted Hypothyroidism, preoperative TSH 0.406 Anxiety disorder Previous tobacco dependence Occasional marijuana use Family history of premature coronary artery disease with father diagnosed in his 50s Preoperative urinary tract infection with E. coli, treated Preoperative nasal swab positive for MSSA, treated Plan: Continue to maximize medical therapy with aspirin, statin, Plavix, beta-neris. Will increase beta-neris therapy as tolerated Continue amiodarone for A-fib prophylaxis. Patient has had no atrial fibrillation up to this point Continue Cozaar for afterload reduction Encourage incentive spirometry use 10 times every hour while awake. Bronchodilators per pulmonology Will monitor daily labs and x-rays, electrolyte replacement per protocol. Add Lasix 20 mg p.o. daily Increase activity, ambulate as tolerated. PT/OT/cardiac rehab following GI/DVT prophylaxis Pain control per current medication regimen, will readd patient's home dose of Percocet Insulin management per internal medicine Will discontinue epicardial pacemaker wires, patient to remain on bedrest for 1 hour post wire removal Continue to monitor and record strict accurate intake and output Daily weights Transfer orders placed yesterday for 3 S. cardiac stepdown unit, may transfer when bed available Discharge planning in progress, anticipate discharge to home with home care in the next 24 to 48 hours More recommendations to follow as patient progresses
[2024-06-03] MEDS: FUROSEMIDE 20 MG TAB PO SCH (08:59)
--- NOTE | 2024-06-03 09:56 | XR ---
EXAMINATION TYPE: XR chest 2V DATE OF EXAM: 06/02/2024 COMPARISON: 06/02/2024 INDICATION: Post cardiac surgery TECHNIQUE: Single frontal view of the chest is obtained. FINDINGS: The heart size is normal. The pulmonary vasculature is normal. Left lower lobe infiltrate is present. Minimal left pleural effusion. Sternotomy wires are present from prior cardiac valve surgery. CABG appears to be present as well. IMPRESSION: 1. Left lower lobe infiltrate with small left pleural effusion. [facility], , 06/03/2024 9:22 AM
--- NOTE | 2024-06-03 10:02 | P.CONS ---
History of Present Illness - Reason for Consult Consult date: 06/02/24 Medical management, status post CABG - History of Present Illness This is a pleasant 54-year-old female who was admitted under cardiothoracic services with a significant past medical history of coronary artery disease with previous myocardial infarction's and stenting to the LAD, hypertension, hyperlipidemia, diabetes mellitus, insulin-dependent, previous CVA/TIA, morbid obesity, obstructive sleep apnea and uses a CPAP, COPD, hypothyroidism, anxiety disorder. Patient is status post coronary artery bypass grafting using the in situ left intramammary artery to the left anterior descending artery, aortic valve replacement. Patient continues on 2 L of oxygen via nasal cannula and weaning FiO2 as tolerated. Strongly encouraged incentive spirometer use at least 10 times every hour while awake. Patient is a known diabetic that takes large amounts of insulin including long-acting and sliding scale and will adjust accordingly as patient has been transitioned off the insulin drip yesterday. Current blood sugar is 225 and will adjust. 06/02/2024 Patient is seen in follow-up today with no acute overnight issues noted. Patient reports to tolerating diet and insulins were adjusted and tolerating well this patient has poorly controlled diabetes previously takes large amounts of insulin. Patient is afebrile and reports some chest wall discomfort and occasional cough although is using heart hugger. Encouraged incentive spirometer use at least 10 times every hour and patient is also doing breathing treatments. Medications being adjusted per cardiothoracic's and cardiology and is a downgrade out of the ICU once a 3 S. bed becomes available. Patient has been up and walking and tolerating thus far. Encouraged at least 3-5 walks daily. Plan is for patient to return home on discharge. Review of systems: Constitutional: No reports of fatigue, fever, or chills Cardiovascular: No reports of chest pain or palpitations, reports chest wall pain with movement and cough Respiratory: No reports of worsening shortness of breath, occasional painful cough GI: No reports of nausea, vomiting, or diarrhea : No reports of dysuria or retention Neurovascular: No reports of weakness or numbness All medications have been reviewed PHYSICAL EXAMINATION: GENERAL: The patient is alert and oriented x3, not in any acute distress. Well developed, well nourished. HEENT: Pupils are round and equally reacting to light. EOMI. No scleral icterus. No conjunctival pallor. Normocephalic, atraumatic. No pharyngeal erythema. No thyromegaly. CARDIOVASCULAR: S1 and S2 present. No murmurs, rubs, or gallops. PULMONARY: Chest is clear to auscultation, no wheezing or crackles. ABDOMEN: Soft, nontender, nondistended, normoactive bowel sounds. No palpable organomegaly. MUSCULOSKELETAL: No joint swelling or deformity. EXTREMITIES: No cyanosis, clubbing, or pedal edema. NEUROLOGICAL: Gross neurological examination did not reveal any focal deficits. SKIN: No rashes. Assessment: Status post aortic valve replacement Status postcoronary artery bypass graft Diabetes mellitus, type II, uncontrolled with hyperglycemia, insulin-dependent History of hypertension History of morbid obesity with a BMI of 43.4 History of asthma/COPD, not in exacerbation GERD Hyperlipidemia History of sleep apnea with CPAP history of CVA previously GI prophylaxis DVT prophylaxis Full code Plan: Patient is status post CABG and aortic valve replacement doing relatively well currently in the ICU although is a downgrade to 3 S. once a bed is available. Patient is maintained on 2 L and occasionally room air maintaining oxygen saturations above 90%. Continue breathing treatments and appropriate home medications have been resumed. Encouraged incentive spirometer use at least 10 times every hour while awake Continue to monitor blood sugars ACHS and 2 AM and adjust insulins accordingly. Patient's blood sugars were mildly elevated in the 200s and have increased long- acting insulin to twice daily. Patient does take large amounts of insulin at home Encouraged increased activity as tolerated We will continue to follow with cardiothoracic surgery during hospitalization. Thank you kindly for this consultation. The impression and plan of care has been dictated by Cara Yi, Nurse Practitioner as directed. Dr. Colton MD I have performed a history and examination and MDM of this patient, discussed the same with the dictator, and agree with the dictator's assessment and plan as written ,documented as a scribe. Based on total visit time, I have performed more than 50% of the visit. Past Medical History Past Medical History: Asthma, Chest Pain / Angina, COPD, CVA/TIA, Diabetes Mellitus, GERD/Reflux, Hyperlipidemia, Hypertension, Osteoarthritis (OA), Renal Disease, Sleep Apnea/CPAP/BIPAP Additional Past Medical History / Comment(s): vonnie.neuropathy feet, bleeds easily, hx. of anemia, TIA's couple years ago-minor droop right side of mouth & right eye, uses CPAP, stage 1 kidney disease, bulging lumbar discs, disc problem in thoracic area History of Any Multi-Drug Resistant Organisms: None Reported Past Surgical History: Adenoidectomy, Cholecystectomy, Heart Catheterization, Heart Catheterization With Stent, Tonsillectomy Additional Past Surgical History / Comment(s): D&C, carpal tunnel surgery left , LT ARM SX FOR "PINCHED NERVE", LT THUMB TRIGGER FINGER, rae neuroma removed left foot, heart cath 2015 , right ankle fx 01/2018 no surgery , VONNIE CATARACT REMOVED WITH LENS IMPLANT thyroidectomy Past Anesthesia/Blood Transfusion Reactions: Previous Problems w/ Anesthesia, Motion Sickness Additional Past Anesthesia/Blood Transfusion Reaction / Comm: difficulty waking from anesthesia Date of Last Stent Placement:: 01/27 Smoking Status: Former smoker - Past Family History Father Family Medical History: Cancer Additional Family Medical History / Comment(s): skin Mother Family Medical History: Diabetes Mellitus, Hypertension, Osteoarthritis (OA) Additional Family Medical History / Comment(s): MURMUR Sister(s) Family Medical History: Cancer Additional Family Medical History / Comment(s): ovarian Medications and Allergies Home Medications Medication Instructions Recorded Confirmed Type Montelukast [Singulair] 10 mg PO HS 04/16/17 05/30/24 History PARoxetine HCL [Paxil] 40 mg PO DAILY 12/27/18 05/30/24 History Empagliflozin [Jardiance] 10 mg PO DAILY 01/13/23 05/30/24 History Insulin Glargine,Hum.rec.anlog 50 units SQ HS 01/13/23 05/30/24 History [Lantus Solostar Pen] oxyCODONE-APAP 5-325MG [Percocet 1 tab PO TID PRN 01/13/23 05/30/24 History 5-325 mg] tiZANidine [Zanaflex] 4 mg PO HS 01/13/23 05/30/24 History Atorvastatin [Lipitor] 40 mg PO HS 01/14/24 05/30/24 History Butalb/APAP/Caff 50-325-40Mg 1 tab PO BID PRN 01/14/24 05/30/24 History [Fioricet 50-325-40] Diclofenac Sodium Gel [Voltaren 1% 1 applic TOPICAL BID PRN 01/14/24 05/30/24 History Gel] Ergocalciferol [Vitamin D2 (1250 1,250 mcg PO TU 01/14/24 05/30/24 History Mcg = 84471 Iu)] Fluticasone Nasal [place] [Flonase 2 spr EA NOSTRIL HS PRN 01/14/24 05/30/24 His tory Nasal [place]] Isosorbide Mononitrate ER [Imdur] 30 mg PO DAILY 01/14/24 05/30/24 History Levothyroxine Sodium 150 mcg PO DAILY 01/14/24 05/30/24 History Metoprolol Succinate (ER) [Toprol 50 mg PO DAILY 01/14/24 05/30/24 History XL] Nystatin 100,000 Unit/gm Powd 1 applic TOPICAL BID PRN 01/14/24 05/30/24 History [Mycostatin Powder] Tirzepatide [Mounjaro] 5 mg SQ TH 01/14/24 05/30/24 History metFORMIN HCL 1,000 mg PO BID 01/14/24 05/30/24 History Ondansetron [Zofran] 4 mg PO Q8HR PRN 4 Days #10 tab 01/17/24 05/30/24 Rx Ferrous Sulfate [Iron (65 MG 325 mg PO DAILY 02/20/24 05/30/24 History Elemental)] Pantoprazole [Protonix] 40 mg PO DAILY 02/20/24 05/30/24 History INSULIN LISPRO (HumaLOG) [humaLOG] 24 units SQ AC-TID 03/30/24 05/30/24 History INSULIN LISPRO (HumaLOG) [humaLOG] See Protocol SQ ACHS 03/30/24 05/30/24 History Budesonide 0.5 mg INHALATION DIRECTED PRN 05/26/24 05/30/24 History Nitrofurantoin Monohyd/M-Cryst 100 mg PO Q12HR #14 cap 05/27/24 05/30/24 Rx [Macrobid] Allergies Allergy/AdvReac Type Severity Reaction Status Date / Time adhesive Allergy red skin Verified 05/30/24 06:10 ciprofloxacin [From Cipro] Allergy Itching Verified 05/30/24 06:10 hydroxyzine Allergy Itching Verified 05/30/24 06:10 Iodinated Contrast Media Allergy Itching Verified 05/30/24 06:10 [Iodinated Contrast Media - IV Dye] prednisone Allergy Rapid Verified 05/30/24 06:10 Heart Rate, Panic attack Sulfa (Sulfonamide Allergy Anaphylaxis Verified 05/30/24 06:10 Antibiotics) verapamil Allergy Anaphylaxis Verified 05/30/24 06:10 celecoxib [From Celebrex] AdvReac CAUSES GI Verified 05/30/24 06:10 BLEEDING cephalexin monohydrate AdvReac Vomiting Verified 05/30/24 06:10 [From Keflex] diphenhydramine AdvReac arm burned Verified 05/30/24 06:10 [From Benadryl] when given IV Penicillins AdvReac Anaphylaxis Verified 05/30/24 06:10 tramadol AdvReac Nausea & Verified 05/30/24 06:10 Vomiting Physical Exam Vitals: Vital Signs Temp Pulse Resp BP Pulse Ox FiO2 06/02/24 09:00 80 28 H 123/66 95 06/02/24 08:00 97.9 F 85 13 113/76 95 3 06/02/24 07:00 81 22 116/62 96 06/02/24 06:00 80 31 H 101/63 96 06/02/24 05:00 74 24 93/65 96 06/02/24 04:00 98.2 F 74 22 98/65 96 30 06/02/24 03:30 30 06/02/24 03:00 75 27 H 100/68 96 06/02/24 02:00 75 27 H 107/64 96 06/02/24 01:00 76 20 104/73 97 06/02/24 00:00 98.3 F 79 25 H 117/73 96 30 06/01/24 23:30 30 06/01/24 23:00 84 28 H 107/73 97 06/01/24 22:00 85 23 109/64 97 30 06/01/24 21:00 86 24 109/72 97 06/01/24 20:30 86 31 H 98 06/01/24 20:00 98.5 F 87 28 H 97 06/01/24 19:41 88 06/01/24 19:30 85 24 97 06/01/24 19:28 88 06/01/24 19:00 86 32 H 96 06/01/24 18:30 87 32 H 98 06/01/24 18:00 83 28 H 119/71 06/01/24 17:30 87 28 H 110/66 06/01/24 17:00 92 22 97 06/01/24 16:34 92 06/01/24 16:30 88 29 H 108/68 100 06/01/24 16:24 88 06/01/24 16:00 98.0 F 86 25 H 98/68 96 06/01/24 15:30 87 37 H 109/69 94 L 06/01/24 15:00 87 29 H 119/63 95 06/01/24 14:30 85 30 H 102/61 94 L 06/01/24 14:00 85 28 H 118/67 95 06/01/24 13:30 84 32 H 114/69 97 06/01/24 13:00 86 27 H 109/71 97 06/01/24 12:30 83 30 H 121/76 98 06/01/24 12:00 99.5 F 81 23 126/72 98 06/01/24 11:57 86 06/01/24 11:48 82 06/01/24 11:30 84 29 H 104/73 99 06/01/24 11:00 80 20 116/67 97 06/01/24 10:30 82 21 114/72 98 06/01/24 10:00 80 21 114/68 100 06/01/24 09:30 85 23 127/78 99 Intake and Output 06/01/24 06/02/24 06/02/24 22:59 06:59 14:59 Intake Total 177.017 9685 549 Output Total 485 390 125 Balance 182.715 8112 424 Intake: IV 177 234 49 Injectate 20 Pressure Bags 57 54 9 Sodium Chloride 0.9% 1, 100 180 40 000 ml @ 30 mls/hr IV . Q24H MICHAEL Rx#:[id number] Intake, IV Titration 15.876 Amount Milrinone-D5w Pmx 20 mg 15.876 In Dextrose/Water 1 100ml .bag @ 0.1 MCG/KG/MIN 3. 024 mls/hr IV .Q24H MICHAEL Rx#:[id number] Oral 480 1600 500 Output: Urine 485 390 125 Other: Voiding Method Indwelling Catheter Indwelling Catheter Weight 108.9 kg ABP, PAP, CO, CI - Last 8 Hours Arterial Blood Pressure 126/64 Arterial Blood Pressure 108/58 Arterial Blood Pressure 100/59 Arterial Blood Pressure 100/54 Arterial Blood Pressure 92/51 Arterial Blood Pressure 96/52 Arterial Blood Pressure 102/57 Cardiac Output 4.6 Cardiac Output 4.6 Cardiac Output 4.6 Cardiac Index 2.4 Cardiac Index 2.4 Cardiac Index 2.4 Results CBC & Chem 7: 06/03/24 03:10 06/03/24 03:10 Labs: Abnormal Lab Results - Last 24 Hours (Table) 06/01/24 06/01/24 06/01/24 Range/Units 09:17 10:13 13:17 RBC (3.80-5.40) m/uL Hgb (11.4-16.0) gm/dL Hct (34.0-46.0) % RDW (11.5-15.5) % Plt Count (150-450) k/uL Neutrophils # (1.3-7.7) k/uL Sodium (137-145) mmol/L Chloride (98-107) mmol/L BUN (7-17) mg/dL Glucose (74-99) mg/dL POC Glucose (mg/dL) 133 H 117 H 176 H (70-110) mg/dL Calcium (8.4-10.2) mg/dL AST (14-36) U/L Total Protein (6.3-8.2) g/dL Albumin (3.5-5.0) g/dL 06/01/24 06/01/24 06/02/24 Range/Units 14:15 20:23 02:06 RBC (3.80-5.40) m/uL Hgb (11.4-16.0) gm/dL Hct (34.0-46.0) % RDW (11.5-15.5) % Plt Count (150-450) k/uL Neutrophils # (1.3-7.7) k/uL Sodium (137-145) mmol/L Chloride (98-107) mmol/L BUN (7-17) mg/dL Glucose (74-99) mg/dL POC Glucose (mg/dL) 214 H 231 H 203 H (70-110) mg/dL Calcium (8.4-10.2) mg/dL AST (14-36) U/L Total Protein (6.3-8.2) g/dL Albumin (3.5-5.0) g/dL 09/06/02/24 06/02/24 Range/Units 04:10 04:10 06:25 RBC 3.21 L (3.80-5.40) m/uL Hgb 8.7 L (11.4-16.0) gm/dL Hct 27.9 L (34.0-46.0) % RDW 16.4 H (11.5-15.5) % Plt Count 91 L (150-450) k/uL Neutrophils # 8.1 H (1.3-7.7) k/uL Sodium 135 L (137-145) mmol/L Chloride 109 H (98-107) mmol/L BUN 23 H (7-17) mg/dL Glucose 189 H (74-99) mg/dL POC Glucose (mg/dL) 225 H (70-110) mg/dL Calcium 8.0 L (8.4-10.2) mg/dL AST 49 H (14-36) U/L Total Protein 5.5 L (6.3-8.2) g/dL Albumin 3.4 L (3.5-5.0) g/dL
[2024-06-03 11:28] LABS: Glucose,Whole Blood 169 mg/dL (70-110)
--- NOTE | 2024-06-03 12:10 | P.PN ---
Subjective Progress Note Date: 06/03/24 This is a 54-year-old female patient was being seen in the intensive care unit following her cardiac surgery. Patient underwent a aortic valve replacement as the patient was found to have severe aortic stenosis with a bicuspid aortic valve and the patient underwent a single-vessel bypass surgery. Her cardiac catheterization was done on 10/06/2023 and the patient has 50% stenosis of the LAD. Echocardiogram revealed bicuspid aortic valve with a preserved LV function with an ejection fraction of 55 to 60%. At this point in time, the patient is sedated on propofol and the patient is calm and comfortable. Intubated on mechanical ventilator. She is on assist-control mode of mechanical ventilation at rate of 14, tidal volume of 350, FiO2 of 100% and a PEEP of 10. The patient has 3 different chest tubes in place, mediastinal and left pleural. The chest x-ray shows no evidence of any pneumothorax. ET tube is in a good location. No significant atelectatic changes. There are some increased perihilar pulmonary vascular markings. No evidence of any pneumothorax. Hemodynamically stable. Cardiac output is at 4.7 with an index of 2.4 and the PA pressure 29/17 with a CVP of 9. Cardiac rhythm is sinus. Adequate urine output. No other significant events reported postop. WBC was at 9.1 with hemoglobin 10.7 and a platelet count of 102. Blood gas showed a pH of 7.25 with a pCO2 of 53 and pO2 of 318. The BUN is 16 with a creatinine of 0.6 and a sodium levels at 138 and a bicarb level is at 21 with a potassium level of 4.0 05/31/2024, patient is being seen for a follow-up. The patient was weaned off the mechanical ventilator and patient was extubated to BiPAP and currently she is on oxygen at 2 L/min nasal cannula. She is postop day #1 and she is awake and alert and sitting up in a chair. Her cardiac output is at 3.6 with an index of 1.8. PA pressures are 33/13 and a CVP is 11. She is having some lower urine output and lower blood pressure. Based on that, the patient is being given IV albumin. Chest tubes are in place. The patient has 2 mediastinal chest tube and a pleural chest tube on the left and output has been in the order of 20 to 30 cc an hour. No evidence of any air leak. Chest x-ray from today shows no evidence of any pneumothorax, [place] catheter in place and the patient continues to have some atelectatic changes left lung base. Cardiac rhythm is sinus. WBC count is at 9.4 with a hemoglobin 10.5 and a platelet count of 121. The BUN is 15 with a creatinine of 0.72 and a sodium levels at 140. The patient is awake and alert and communicating. No other significant events overnight. The patient is using the incentive spirometer and she is pulling approximately 500 cc on her incentive spirometer. No other significant events overnight. On 06/01/2024, the patient is being seen for a follow-up. The patient is still recovering from a cardiac surgery. The patient is currently postoperative day #2 following coronary bypass surgery and aortic valve replacement. Noted the patient was weaned off the mechanical ventilator and the patient was extubated to a BiPAP and currently the patient is on oxygen by nasal cannula which is at 2 L. The patient did encounter some hypotension and low cardiac output yesterday. Based on that, the patient was started on milrinone which is currently running at 0.2 mcg/kg/min. Since then, his urine output is improved and the cardiac output is also improved and the patient's most recent cardiac output is 5.1 with an index of 2.6 with a PA pressure of 34/13. Blood pressure is stable for now. No significant hypotension. No altered mentation. Chest x-ray from today is showing cardiomegaly and mild pulm vessel congestion. Otherwise, no other acute abnormalities are noted. The patient continues to have the chest tubes in place with the left lower chest tube has drained around 150 cc over the past 24 hours and the mediastinal chest tube has drained approximately 150 cc over the past 24 hours. The patient has a right IJ [place] catheter in place. Awake and alert and communicating. Urine output is noted of 30 to 50 cc an hour. WBC count 11.7 with a hemoglobin of 0.4 and a platelet count of 102. BUN is 19 with a creatinine of 0.7 and sodium levels at 138. Remains on insulin drip which is running at 9 units an hour. Underlying cardiac rhythm is sinus. No other significant events overnight. 06/02/2024, the patient is being seen for a follow-up. The patient is sitting up in a chair and the patient is calm and comfortable hemodynamic stable on room air oxygen. Chest tubes have been removed. [place] catheter has been removed. The patient is on no pressors for now. The patient is incentive spirometer. Chest x-ray from today shows no significant abnormalities. Lungs are adequately expanded. Pulmonary vasculature is within normal limits. Otherwise, the patient remains in normal sinus rhythm. WBC count of 10.2 with a hemoglobin 8.7 and platelet count of 91. BUN 23 with a creatinine 0.8 and sodium levels at 135. She is using the incentive spirometer. She is ambulating. No other significant events overnight. No altered mentation. No angina or palpitations. 06/03/2024, the patient is being seen for a follow up. The patient is sitting up comfortably in a chair. She is alert and oriented and communicating appropriately during our assessment. She is saturating well on room air oxygen. Chest tubes have been taken out. [place] catheter has been removed. She is not any pressors right now. The patient is using incentive spirometry. Chest X-ray from today showed left lower lobe infiltrates with small left pleural effusion. Patient is on oral amiodarone but maintains sinus rhythm. Her labs today showed WBC of 9.5, hemoglobin 9.0, platelet 123, sodium 135, potassium 4.0, BUN 40, creatinine 1.03. No other significant events overnight. Denies any chest pain, shortness of breath, nausea, vomiting. Objective - Vital Signs Vital signs: Vital Signs Temp 99.1 F 06/03/24 11:46 Pulse 70 06/03/24 11:46 Resp 16 06/03/24 11:46 BP 116/85 06/03/24 11:46 Pulse Ox 98 06/03/24 11:46 FiO2 30 06/03/24 04:00 Intake & Output 06/02/24 06/03/24 06/03/24 18:59 06:59 18:59 Intake Total 572 Output Total 1475 250 750 Balance -903 -250 -750 Weight 109.5 kg Intake: IV 72 Pressure Bags 12 Sodium Chloride 0.9% 1, 60 000 ml @ 30 mls/hr IV . Q24H MICHAEL Rx#:[id number] Oral 500 Output: Urine 1475 250 750 Other: Voiding Method Toilet Toilet Toilet # Voids 1 # Bowel Movements 1 ABP, PAP, CO, CI - Last Documented Arterial Blood Pressure 126/64 Pulmonary Artery Pressure 37/17 Cardiac Output 4.6 Cardiac Index 2.4 - Exam CONSTITUTIONAL: Appears comfortable, cooperative, no acute distress RESPIRATORY: Lungs sounds diminished bilaterally. Respirations even, nonlabored. Currently on room air with oxygen saturation 96%. CARDIOVASCULAR: S1, S2 present. Sinus rhythm on telemetry. Regular heart rate. GASTROINTESTINAL: Abdomen soft, nontender, nondistended. Active bowel sounds present 4 quadrants. Tolerating diet. EXTREMITY: No LE edema noted. - Labs CBC & Chem 7: 06/03/24 03:10 06/03/24 03:10 Labs: Abnormal Lab Results - Last 24 Hours (Table) 06/02/24 06/02/24 06/03/24 Range/Units 16:40 20:18 03:10 RBC 3.22 L (3.80-5.40) m/uL Hgb 9.0 L (11.4-16.0) gm/dL Hct 28.7 L (34.0-46.0) % RDW 16.6 H (11.5-15.5) % Plt Count 123 L (150-450) k/uL Sodium (137-145) mmol/L Chloride (98-107) mmol/L BUN (7-17) mg/dL Glucose (74-99) mg/dL POC Glucose (mg/dL) 180 H 173 H (70-110) mg/dL 06/03/24 06/03/24 06/03/24 Range/Units 03:10 06:45 11:27 RBC (3.80-5.40) m/uL Hgb (11.4-16.0) gm/dL Hct (34.0-46.0) % RDW (11.5-15.5) % Plt Count (150-450) k/uL Sodium 135 L (137-145) mmol/L Chloride 108 H (98-107) mmol/L BUN 30 H (7-17) mg/dL Glucose 129 H (74-99) mg/dL POC Glucose (mg/dL) 133 H 169 H (70-110) mg/dL Assessment and Plan Assessment: Post aortic valve replacement and single-vessel bypass surgery. The patient is currently postop day #3. The patient is hemodynamically stable on no pressors. [place] catheter has been removed. Adequate blood pressure. Adequate urine output. Postthoracotomy, extubated and the patient is currently on room air oxygen. All of the chest tubes have been removed. Bicuspid aortic valve with severe aortic stenosis and preserved LV function Coronary artery disease with previous PCI to LAD that was done in January 2023 Morbid obesity with obstructive sleep apnea Hypertension Diabetes mellitus type 2 Hyperlipidemia History of COPD/asthma Peripheral neuropathy involving the lower extremities bilaterally Anemia of chronic disease Stage I chronic kidney disease Lumbar disc disease Previous history of TIA Plan Continue using the incentive spirometer The patient is currently on room air oxygen Continue aspirin and Plavix Continue metoprolol Keep the patient on oral amiodarone for atrial fibrillation prophylaxis and she is currently in sinus rhythm Primacor has been discontinued Chest tubes were removed [place] catheter has been removed Patient was started on insulin Levemir 40 units twice a day and insulin replacement discontinued. The patient is also on insulin sliding scale coverag e. Patient stable to be transferred to [address] [place] [address] Cardiac step down unit Time with Patient: Less than 30
--- NOTE | 2024-06-03 13:43 | P.PN ---
Subjective Progress Note Date: 06/03/24 This is a 54-year-old female patient was being seen in the intensive care unit following her cardiac surgery. Patient underwent a aortic valve replacement as the patient was found to have severe aortic stenosis with a bicuspid aortic valve and the patient underwent a single-vessel bypass surgery. Her cardiac catheterization was done on 10/06/2023 and the patient has 50% stenosis of the LAD. Echocardiogram revealed bicuspid aortic valve with a preserved LV function with an ejection fraction of 55 to 60%. At this point in time, the patient is sedated on propofol and the patient is calm and comfortable. Intubated on mechanical ventilator. She is on assist-control mode of mechanical ventilation at rate of 14, tidal volume of 350, FiO2 of 100% and a PEEP of 10. The patient has 3 different chest tubes in place, mediastinal and left pleural. The chest x-ray shows no evidence of any pneumothorax. ET tube is in a good location. No significant atelectatic changes. There are some increased perihilar pulmonary vascular markings. No evidence of any pneumothorax. Hemodynamically stable. Cardiac output is at 4.7 with an index of 2.4 and the PA pressure 29/17 with a CVP of 9. Cardiac rhythm is sinus. Adequate urine output. No other significant events reported postop. WBC was at 9.1 with hemoglobin 10.7 and a platelet count of 102. Blood gas showed a pH of 7.25 with a pCO2 of 53 and pO2 of 318. The BUN is 16 with a creatinine of 0.6 and a sodium levels at 138 and a bicarb level is at 21 with a potassium level of 4.0 05/31/2024, patient is being seen for a follow-up. The patient was weaned off the mechanical ventilator and patient was extubated to BiPAP and currently she is on oxygen at 2 L/min nasal cannula. She is postop day #1 and she is awake and alert and sitting up in a chair. Her cardiac output is at 3.6 with an index of 1.8. PA pressures are 33/13 and a CVP is 11. She is having some lower urine output and lower blood pressure. Based on that, the patient is being given IV albumin. Chest tubes are in place. The patient has 2 mediastinal chest tube and a pleural chest tube on the left and output has been in the order of 20 to 30 cc an hour. No evidence of any air leak. Chest x-ray from today shows no evidence of any pneumothorax, Wolcott-Gypsy catheter in place and the patient continues to have some atelectatic changes left lung base. Cardiac rhythm is sinus. WBC count is at 9.4 with a hemoglobin 10.5 and a platelet count of 121. The BUN is 15 with a creatinine of 0.72 and a sodium levels at 140. The patient is awake and alert and communicating. No other significant events overnight. The patient is using the incentive spirometer and she is pulling approximately 500 cc on her incentive spirometer. No other significant events overnight. On 06/01/2024, the patient is being seen for a follow-up. The patient is still recovering from a cardiac surgery. The patient is currently postoperative day #2 following coronary bypass surgery and aortic valve replacement. Noted the patient was weaned off the mechanical ventilator and the patient was extubated to a BiPAP and currently the patient is on oxygen by nasal cannula which is at 2 L. The patient did encounter some hypotension and low cardiac output yesterday. Based on that, the patient was started on milrinone which is currently running at 0.2 mcg/kg/min. Since then, his urine output is improved and the cardiac output is also improved and the patient's most recent cardiac output is 5.1 with an index of 2.6 with a PA pressure of 34/13. Blood pressure is stable for now. No significant hypotension. No altered mentation. Chest x-ray from today is showing cardiomegaly and mild pulm vessel congestion. Otherwise, no other acute abnormalities are noted. The patient continues to have the chest tubes in place with the left lower chest tube has drained around 150 cc over the past 24 hours and the mediastinal chest tube has drained approximately 150 cc over the past 24 hours. The patient has a right IJ Wolcott-Gypsy catheter in place. Awake and alert and communicating. Urine output is noted of 30 to 50 cc an hour. WBC count 11.7 with a hemoglobin of 0.4 and a platelet count of 102. BUN is 19 with a creatinine of 0.7 and sodium levels at 138. Remains on insulin drip which is running at 9 units an hour. Underlying cardiac rhythm is sinus. No other significant events overnight. 06/02/2024, the patient is being seen for a follow-up. The patient is sitting up in a chair and the patient is calm and comfortable hemodynamic stable on room air oxygen. Chest tubes have been removed. Wolcott-Gypsy catheter has been removed. The patient is on no pressors for now. The patient is incentive spirometer. Chest x-ray from today shows no significant abnormalities. Lungs are adequately expanded. Pulmonary vasculature is within normal limits. Otherwise, the patient remains in normal sinus rhythm. WBC count of 10.2 with a hemoglobin 8.7 and platelet count of 91. BUN 23 with a creatinine 0.8 and sodium levels at 135. She is using the incentive spirometer. She is ambulating. No other significant events overnight. No altered mentation. No angina or palpitations. 06/03/2024, I am seeing the patient for a follow-up. The patient is doing well. Sitting up in a chair. She is on room air oxygen. No respiratory distress. All of the chest tubes were removed. The patient is in normal sinus rhythm. No cough or sputum production. No chest pain. Surgical site is dry clean and intact. Follow-up chest x-ray that was done this morning shows some atelectatic change and small left sided pleural effusion. Otherwise, no other acute abnormalities noted. Service consult 9.5 with a hemoglobin of 9 and a platelet count of 123. BUN 30 with a creatinine of 1.03 and a sodium levels at 135 with a potassium level of 4.0. The patient is currently on aspirin and Plavix. The patient is also on metoprolol 50 mg p.o. twice daily. The patient on Levemir insulin 40 units twice daily and NovoLog sliding scale coverage. Wolcott-Gypsy catheter has been removed 2 days back. She is also on Synthroid 150 mcg 1 times a day. She is stooling. She is on high-dose statin. Objective - Vital Signs Vital signs: Vital Signs Temp 97.7 F 06/03/24 07:49 Pulse 85 06/03/24 08:51 Resp 20 06/03/24 07:49 BP 131/80 06/03/24 07:49 Pulse Ox 94 L 06/03/24 07:49 FiO2 30 06/03/24 04:00 Intake & Output 06/02/24 06/03/24 06/03/24 18:59 06:59 18:59 Intake Total 572 Output Total 1475 250 750 Balance -903 -250 -750 Weight 109.5 kg Intake: IV 72 Pressure Bags 12 Sodium Chloride 0.9% 1, 60 000 ml @ 30 mls/hr IV . Q24H [facility] Rx#:[id number] Oral 500 Output: Urine 1475 250 750 Other: Voiding Method Toilet Toilet Toilet # Voids 1 # Bowel Movements 1 ABP, PAP, CO, CI - Last Documented Arterial Blood Pressure 126/64 Pulmonary Artery Pressure 37/17 Cardiac Output 4.6 Cardiac Index 2.4 - Exam CONSTITUTIONAL: Appears comfortable, cooperative, no acute distress RESPIRATORY: Lungs sounds diminished bilaterally. Respirations even, n onlabored. Currently on 2 L nasal cannula with oxygen saturation 96%. Able to achieve 500 mL on incentive spirometry. Weak cough. CARDIOVASCULAR: S1, S2 present. Regular rate and rhythm, sinus rhythm on telemetry. Sternum stable. Palpable peripheral pulses bilaterally. Trace generalized edema present. No calf pain or tenderness noted. Heart hugger in place with patient demonstrating appropriate use. Antiembolism stockings, SCDs present. GASTROINTESTINAL: Abdomen soft, nontender, nondistended. Active bowel sounds present 4 quadrants. Tolerating diet. Denies flatus, positive belching GENITOURINARY: Shea present draining clear, yellow urine. Output overnight 30-50 mL per hour, 1650 mL in the last 24 hours INTEGUMENTARY: Skin is warm and dry with evidence of good perfusion. Anterior chest incision well approximated and covered with dry intact dressing NEUROLOGIC: Cranial nerves II through XII intact MUSKULOSKELETAL: Able to move all extremities, strength equal bilaterally PSYCHIATRIC: Awake and alert, oriented to person place and time, flat affect, intact judgment and insight INVASIVE LINES AND TUBES: A/V epicardial pacemaker wires present, connected to generator, VVI mode with backup rate 50 bpm. Right internal jugular cordis, right radial arterial line present - Labs CBC & Chem 7: 06/03/24 03:10 06/03/24 03:10 Labs: Abnormal Lab Results - Last 24 Hours (Table) 06/02/24 06/02/24 06/02/24 Range/Units 04:10 11:42 16:40 RBC (3.80-5.40) m/uL Hgb (11.4-16.0) gm/dL Hct (34.0-46.0) % RDW (11.5-15.5) % Plt Count (150-450) k/uL Sodium (137-145) mmol/L Chloride (98-107) mmol/L BUN (7-17) mg/dL Glucose (74-99) mg/dL POC Glucose (mg/dL) 218 H 180 H (70-110) mg/dL Hemoglobin A1c 7.5 H (<=6.0) % 06/02/24 06/03/24 06/03/24 Range/Units 20:18 03:10 03:10 RBC 3.22 L (3.80-5.40) m/uL Hgb 9.0 L (11.4-16.0) gm/dL Hct 28.7 L (34.0-46.0) % RDW 16.6 H (11.5-15.5) % Plt Count 123 L (150-450) k/uL Sodium 135 L (137-145) mmol/L Chloride 108 H (98-107) mmol/L BUN 30 H (7-17) mg/dL Glucose 129 H (74-99) mg/dL POC Glucose (mg/dL) 173 H (70-110) mg/dL Hemoglobin A1c (<=6.0) % 06/03/24 Range/Units 06:45 RBC (3.80-5.40) m/uL Hgb (11.4-16.0) gm/dL Hct (34.0-46.0) % RDW (11.5-15.5) % Plt Count (150-450) k/uL Sodium (137-145) mmol/L Chloride (98-107) mmol/L BUN (7-17) mg/dL Glucose (74-99) mg/dL POC Glucose (mg/dL) 133 H (70-110) mg/dL Hemoglobin A1c (<=6.0) % Assessment and Plan Plan: Post aortic valve replacement and single-vessel bypass surgery. The patient is currently postop day # 4. The patient is hemodynamically stable and the patient has no complaints for now. Doing well. Wolcott-Gypsy catheter has been removed. Postthoracotomy, extubated and the patient is currently on room air oxygen. All of the chest tubes have been removed. Bicuspid aortic valve with severe aortic stenosis and preserved LV function Coronary artery disease with previous PCI to LAD that was done in January 2023 Morbid obesity with obstructive sleep apnea Hypertension Diabetes mellitus type 2, currently on Levemir insulin 40 units twice a day Hyperlipidemia History of COPD/asthma Peripheral neuropathy involving the lower extremities bilaterally Anemia of chronic disease Stage I chronic kidney disease Lumbar disc disease Previous history of TIA Plan Continue using the incentive spirometer and the patient is doing aggressive pulmonary toileting. The patient is currently on room air oxygen Continue aspirin and Plavix Continue metoprolol 50 mg p.o. twice daily Keep the patient on a amiodarone for A-fib prophylaxis and her current cardiac rhythm is sinus Primacor has been discontinued Chest tubes were removed Wolcott-Gypsy catheter has been removed Patient was started on insulin Levemir 40 units twice a day and insulin replacement discontinued. The patient is also on insulin sliding scale coverage. Clinically and hemodynamically stable and will continue to follow. Will continue to follow.
[2024-06-03 13:57] VITALS: BMI 43.4
--- NOTE | 2024-06-03 14:52 | P.PN ---
Subjective Progress Note Date: 06/03/24 This is a pleasant 54-year-old female who was admitted under cardiothoracic services with a significant past medical history of coronary artery disease with previous myocardial infarction's and stenting to the LAD, hypertension, hyperlipidemia, diabetes mellitus, insulin-dependent, previous CVA/TIA, morbid obesity, obstructive sleep apnea and uses a CPAP, COPD, hypothyroidism, anxiety disorder. Patient is status post coronary artery bypass grafting using the in situ left intramammary artery to the left anterior descending artery, aortic valve replacement. Patient continues on 2 L of oxygen via nasal cannula and weaning FiO2 as tolerated. Strongly encouraged incentive spirometer use at least 10 times every hour while awake. Patient is a known diabetic that takes large amounts of insulin including long-acting and sliding scale and will adjust accordingly as patient has been transitioned off the insulin drip yesterday. Current blood sugar is 225 and will adjust. 06/02/2024 Patient is seen in follow-up today with no acute overnight issues noted. Patient reports to tolerating diet and insulins were adjusted and tolerating well this patient has poorly controlled diabetes previously takes large amounts of insulin. Patient is afebrile and reports some chest wall discomfort and occasional cough although is using heart hugger. Encouraged incentive spirometer use at least 10 times every hour and patient is also doing breathing treatments. Medications being adjusted per cardiothoracic's and cardiology and is a downgrade out of the ICU once a 3 S. bed becomes available. Patient has b een up and walking and tolerating thus far. Encouraged at least 3-5 walks daily. Plan is for patient to return home on discharge. 06/03/2024 Patient is evaluated in follow-up in the intensive care unit sitting up in the chair. She reports improvement in her shortness of breath and having mild to moderate incisional pain. Patient does report some swelling to her upper lip it is noticeable on examination. She is not having any other facial swelling at this time. Patient was recently started on losartan 2 days ago and will discuss with the primary group. Blood work today reveals white blood cell count 9.5, hgb 9.0, sodium 135, BUN 30, creatinine 1.03. Blood sugar 130-160s. Review of systems: Constitutional: No reports of fatigue, fever, or chills Cardiovascular: No reports of chest pain or palpitations, reports chest wall pain with movement and cough Respiratory: No reports of worsening shortness of breath, occasional painful cough GI: No reports of nausea, vomiting, or diarrhea : No reports of dysuria or retention Neurovascular: No reports of weakness or numbness All medications have been reviewed PHYSICAL EXAMINATION: GENERAL: The patient is alert and oriented x3, not in any acute distress. Well developed, well nourished. HEENT: Pupils are round and equally reacting to light. EOMI. No scleral icterus. No conjunctival pallor. Normocephalic, atraumatic. No pharyngeal erythema. No thyromegaly. CARDIOVASCULAR: S1 and S2 present. No murmurs, rubs, or gallops. PULMONARY: Chest is clear to auscultation, no wheezing or crackles. ABDOMEN: Soft, nontender, nondistended, normoactive bowel sounds. No palpable organomegaly. MUSCULOSKELETAL: No joint swelling or deformity. EXTREMITIES: No cyanosis, clubbing, or pedal edema. NEUROLOGICAL: Gross neurological examination did not reveal any focal deficits. SKIN: No rashes. Assessment: Status post aortic valve replacement Status postcoronary artery bypass graft Diabetes mellitus, type II, uncontrolled with hyperglycemia, insulin-dependent History of hypertension History of morbid obesity with a BMI of 43.4 History of asthma/COPD, not in exacerbation GERD Hyperlipidemia History of sleep apnea with CPAP history of CVA previously GI prophylaxis DVT prophylaxis Full code Plan: Patient is status post CABG and aortic valve replacement doing relatively well currently in the ICU although is a downgrade to 3 S. once a bed is available. Patient is maintained on 2 L and occasionally room air maintaining oxygen saturations above 90%. Continue breathing treatments and appropriate home medications have been resumed. Encouraged incentive spirometer use at least 10 times every hour while awake Continue to monitor blood sugars ACHS and 2 AM and adjust insulins accordingly. Patient's blood sugars were mildly elevated in the 200s and have increased long- acting insulin to twice daily. Patient does take large amounts of insulin at home Encouraged increased activity as tolerated, add a small dose of scheduled insulin and adjust as needed for improved glycemic control. We will continue to follow with cardiothoracic surgery during hospitalization. Thank you kindly for this consultation. The impression and plan of care has been dictated by Rosina Neville, Nurse Practitioner as directed. Dr. Colton MD I have performed a history and physical examination and medical decision making of this patient, discussed the same with the dictator, and agree with the dictators assessment and plan as written, documented as a scribe. Based on total visit time, I have performed more than 50% of this visit. Objective - Vital Signs Vital signs: Vital Signs Temp 99.1 F 06/03/24 11:46 Pulse 84 06/03/24 11:59 Resp 16 06/03/24 11:46 BP 116/85 06/03/24 11:46 Pulse Ox 98 06/03/24 11:46 FiO2 30 06/03/24 04:00 Intake & Output 06/02/24 06/03/24 06/03/24 18:59 06:59 18:59 Intake Total 572 Output Total 1475 250 750 Balance -903 -250 -750 Weight 109.5 kg 109.5 kg Intake: IV 72 Pressure Bags 12 Sodium Chloride 0.9% 1, 60 000 ml @ 30 mls/hr IV . Q24H [facility] Rx#:[id number] Oral 500 Output: Urine 1475 250 750 Other: Voiding Method Toilet Toilet Toilet # Voids 1 # Bowel Movements 1 ABP, PAP, CO, CI - Last Documented Arterial Blood Pressure 126/64 Pulmonary Artery Pressure 37/17 Cardiac Output 4.6 Cardiac Index 2.4 - Labs CBC & Chem 7: 06/03/24 03:10 06/03/24 03:10 Labs: Abnormal Lab Results - Last 24 Hours (Table) 06/02/24 06/02/24 06/03/24 Range/Units 16:40 20:18 03:10 RBC 3.22 L (3.80-5.40) m/uL Hgb 9.0 L (11.4-16.0) gm/dL Hct 28.7 L (34.0-46.0) % RDW 16.6 H (11.5-15.5) % Plt Count 123 L (150-450) k/uL Sodium (137-145) mmol/L Chloride (98-107) mmol/L BUN (7-17) mg/dL Glucose (74-99) mg/dL POC Glucose (mg/dL) 180 H 173 H (70-110) mg/dL 06/03/24 06/03/24 06/03/24 Range/Units 03:10 06:45 11:27 RBC (3.80-5.40) m/uL Hgb (11.4-16.0) gm/dL Hct (34.0-46.0) % RDW (11.5-15.5) % Plt Count (150-450) k/uL Sodium 135 L (137-145) mmol/L Chloride 108 H (98-107) mmol/L BUN 30 H (7-17) mg/dL Glucose 129 H (74-99) mg/dL POC Glucose (mg/dL) 133 H 169 H (70-110) mg/dL Assessment and Plan Time with Patient: Less than 30
[2024-06-03 16:16] LABS: Glucose,Whole Blood 122 mg/dL (70-110)
[2024-06-03] MEDS: INSULIN ASPART (NovoLOG) 100 UNIT/ML VIAL SQ SCH (16:28)
[2024-06-03 20:20] LABS: Glucose,Whole Blood 155 mg/dL (70-110)
[2024-06-04 02:14] LABS: Glucose,Whole Blood 120 mg/dL (70-110)
[2024-06-04] MEDS: CHLORHEXIDINE GLUCONATE 15 ML CUP MUCOUS MEM ONE (05:24)
[2024-06-04] MEDS: ALBUMIN HUMAN 5% 500 ML IVPB ONE (05:24)
[2024-06-04] MEDS: ALBUMIN HUMAN 25% 50 ML IV ONE (05:24)
[2024-06-04] MEDS: CALCIUM CHLORIDE 100 MG/ML 10 ML SYRINGE IVP ONE (05:24)
[2024-06-04] MEDS: INSULIN REGULAR IV ONE (05:25)
[2024-06-04] MEDS: MUPIROCIN 2% OINT 22 GM TUBE NASAL ONE ×2 (05:25→05:30)
[2024-06-04] MEDS: SODIUM CHLORIDE 0.9% IV ONE (05:25)
[2024-06-04] MEDS: MAGNESIUM SULFATE SYG 4.06 MEQ/ML SYRINGE IV ONE (05:25)
[2024-06-04] MEDS: CLEVIDIPINE BUTYRATE 25 MG in EMPTY BAG 1 BAG IV SCH (05:25)
[2024-06-04] MEDS: PAPAVERINE 360 MG in SODIUM CHLORIDE 0.9% 90 ML IV ONE (05:26)
[2024-06-04] MEDS: NOREPINEPHRINE 4 MG in SODIUM CHLORIDE 0.9% 250 ML IV SCH (05:26)
[2024-06-04] MEDS: NITROGLYCERIN 1000MCG/10ML SYRINGE IV ONE (05:26)
[2024-06-04] MEDS: PHENYLEPHRINE 10 MG/ML VIAL IV ONE (05:26)
[2024-06-04] MEDS: NITROGLYCERIN-D5W PMX 50 MG in DEXTROSE/WATER 1 250ML.BAG IV ONE (05:26)
[2024-06-04] MEDS: PHENYLEPHRINE 40 MG in SODIUM CHLORIDE 0.9% 250 ML IV SCH (05:27)
[2024-06-04] MEDS: SODIUM BICARB 8.4% 50 ML SYR (1 MEQ/ML) IV ONE (05:27)
[2024-06-04] MEDS: PROTAMINE SULFATE IV ONE (05:27)
[2024-06-04] MEDS: SALINE IV ONE (05:27)
[2024-06-04] MEDS: propofoL 100 ML IV ONE (05:27)
[2024-06-04] MEDS: PROTAMINE SULFATE 10 MG/ML 25 ML VIAL IV ONE (05:27)
[2024-06-04] MEDS: VANCOMYCIN 1,000 MG in SODIUM CHLORIDE 0.9% IRRIGATIO 1,000 ML IVPB ONE (05:28)
[2024-06-04] MEDS: SODIUM CHLORIDE 0.9% 500 ML 500 ML with HEPARIN SODIUM,PORCINE (1 ML) 5,000 UNIT IV ONE (05:28)
[2024-06-04] MEDS: TRANEXAMIC ACID 2,000 MG in SODIUM CHLORIDE 0.9% 80 ML IV ONE (05:28)
[2024-06-04] MEDS: VANCOMYCIN 1,500 MG in SODIUM CHLORIDE 0.9% 500 ML 500 ML IVPB ONE (05:28)
[2024-06-04] MEDS: HEPARIN SODIUM,PORCINE 10,000 UNIT/ML 1 ML VIAL IV ONE (05:30)
[2024-06-04 06:32] LABS: Glucose,Whole Blood 88 mg/dL (70-110)
--- NOTE | 2024-06-04 06:44 | XR ---
EXAMINATION TYPE: XR chest 2V DATE OF EXAM: 06/04/2024 COMPARISON: 06/03/2024 HISTORY: Post cardiac surgery TECHNIQUE: Frontal and lateral views of the chest are obtained. FINDINGS: Postsurgical changes of prosthetic heart valve surgery. The heart size is normal and the pulmonary vasculature is not congested. There is no pneumothorax. Small opacification of the left lung base is stable likely combination of small pleural effusion and mild atelectasis. The right lung is clear. IMPRESSION: 1. Postsurgical changes as described. 2. No change in the left lung base small pleural effusion in the infiltrate or atelectasis. [facility], , 06/04/2024 6:42 AM
[2024-06-04 07:05] LABS: Anisocytosis Slight; HCT 28.6 % (34.0-46.0); HGB 9.3 gm/dL (11.4-16.0); MCH 28.5 pg (25.0-35.0); MCHC 32.6 g/dL (31.0-37.0); MCV 87.3 fL (80.0-100.0); Mean Platelet Volume 7.9; Platelet Count 184 k/uL (150-450); RBC 3.28 m/uL (3.80-5.40); RDW 17.2 % (11.5-15.5); WBC 8.9 k/uL (3.8-10.6)
[2024-06-04 08:57] LABS: African American GFR (CKD) 84 (>60 ml/min/1.73 sqM); Anion Gap 10 mmol/L; Blood Urea Nitrogen 30 mg/dL (7-17); Calcium 8.6 mg/dL (8.4-10.2); Carbon Dioxide 23 mmol/L (22-30); Chloride 106 mmol/L (98-107); Glucose 80 mg/dL (74-99); Non-African American GFR(CKD) 73 (>60 ml/min/1.73 sqM); Sodium 139 mmol/L (137-145)
[2024-06-04 09:50] VITALS: RESP 16
--- NOTE | 2024-06-04 11:03 | P.PN ---
Subjective HISTORY OF PRESENT ILLNESS: This is 54-year-old female who is status post CABG with LOGAN to LAD and aortic valve replacement. Patient is examined this morning sitting up in the chair. Patient currently denies chest pain or pressure. She denies shortness of breath. Vital signs are stable. Telemetry reveals sinus mechanism. She has been up ambulating without difficulty. She is anticipating discharge home today. PHYSICAL EXAM: VITAL SIGNS: Reviewed. GENERAL: Well-developed in no acute distress. NECK: Supple. No JVD or thyromegaly LUNGS: Respirations even and unlabored. Lungs essentially clear to auscultation bilaterally. HEART: Regular rate and rhythm. S1 and S2 heard. Systolic murmur noted. EXTREMITIES: Normal range of motion. No clubbing or cyanosis. Peripheral pulses intact. 1+ bilateral lower extremity edema ASSESSMENT: Severe bicuspid aortic valve stenosis, status post bioprosthetic aortic valve replacement Coronary artery disease with previous stenting of the LAD, status post CABG with LOGAN to LAD Hypertension Hyperlipidemia Diabetes History of TIA Obstructive sleep apnea with CPAP use History of COPD Former nicotine dependence PLAN: Continue postoperative management per CT surgery Continue current cardiac medications Increase activity as tolerated Encourage use of incentive spirometer Patient is stable for discharge home today from a cardiac standpoint She is to follow-up postdischarge with Dr. Beck Nurse practitioner note has been reviewed by physician. Signing provider agrees with the documented findings, assessment, and plan of care documented by FACILITY DESIGNER as a scribe. Objective - Vital Signs Vital signs: Vital Signs Temp 97.8 F 06/04/24 08:00 Pulse 78 06/04/24 08:56 Resp 16 06/04/24 08:00 BP 119/62 06/04/24 08:00 Pulse Ox 96 06/04/24 08:48 FiO2 30 06/03/24 04:00 Intake & Output 06/03/24 06/04/24 06/04/24 18:59 06:59 18:59 Intake Total 500 360 Output Total 1250 380 Balance -1250 120 360 Weight 109.5 kg 109.2 kg Intake: IV 20 Invasive Line 5 20 Oral 480 360 Output: Urine 1250 380 Other: Voiding Method Toilet Toilet Toilet # Voids 1 1 ABP, PAP, CO, CI - Last Documented Arterial Blood Pressure 126/64 Pulmonary Artery Pressure 37/17 Cardiac Output 4.6 Cardiac Index 2.4 - Labs CBC & Chem 7: 06/04/24 06:33 06/04/24 06:33 Labs: Abnormal Lab Results - Last 24 Hours (Table) 06/03/24 06/03/24 06/03/24 Range/Units 11:27 16:14 20:18 RBC (3.80-5.40) m/uL Hgb (11.4-16.0) gm/dL Hct (34.0-46.0) % RDW (11.5-15.5) % BUN (7-17) mg/dL POC Glucose (mg/dL) 169 H 122 H 155 H (70-110) mg/dL 06/04/24 06/04/24 06/04/24 Range/Units 02:12 06:33 06:33 RBC 3.28 L (3.80-5.40) m/uL Hgb 9.3 L (11.4-16.0) gm/dL Hct 28.6 L (34.0-46.0) % RDW 17.2 H (11.5-15.5) % BUN 30 H (7-17) mg/dL POC Glucose (mg/dL) 120 H (70-110) mg/dL
[2024-06-04 11:36] VITALS: BP 122/83; TEMP 98.1
[2024-06-04 11:48] LABS: Glucose,Whole Blood 124 mg/dL (70-110)
[2024-06-04 12:21] VITALS: PULSE 72
--- NOTE | 2024-06-04 13:57 | P.PN ---
Subjective Progress Note Date: 06/04/24 This is a 54-year-old female patient was being seen in the intensive care unit following her cardiac surgery. Patient underwent a aortic valve replacement as the patient was found to have severe aortic stenosis with a bicuspid aortic valve and the patient underwent a single-vessel bypass surgery. Her cardiac catheterization was done on 10/06/2023 and the patient has 50% stenosis of the LAD. Echocardiogram revealed bicuspid aortic valve with a preserved LV function with an ejection fraction of 55 to 60%. At this point in time, the patient is sedated on propofol and the patient is calm and comfortable. Intubated on mechanical ventilator. She is on assist-control mode of mechanical ventilation at rate of 14, tidal volume of 350, FiO2 of 100% and a PEEP of 10. The patient has 3 different chest tubes in place, mediastinal and left pleural. The chest x-ray shows no evidence of any pneumothorax. ET tube is in a good location. No significant atelectatic changes. There are some increased perihilar pulmonary vascular markings. No evidence of any pneumothorax. Hemodynamically stable. Cardiac output is at 4.7 with an index of 2.4 and the PA pressure 29/17 with a CVP of 9. Cardiac rhythm is sinus. Adequate urine output. No other significant events reported postop. WBC was at 9.1 with hemoglobin 10.7 and a platelet count of 102. Blood gas showed a pH of 7.25 with a pCO2 of 53 and pO2 of 318. The BUN is 16 with a creatinine of 0.6 and a sodium levels at 138 and a bicarb level is at 21 with a potassium level of 4.0 05/31/2024, patient is being seen for a follow-up. The patient was weaned off the mechanical ventilator and patient was extubated to BiPAP and currently she is on oxygen at 2 L/min nasal cannula. She is postop day #1 and she is awake and alert and sitting up in a chair. Her cardiac output is at 3.6 with an index of 1.8. PA pressures are 33/13 and a CVP is 11. She is having some lower urine output and lower blood pressure. Based on that, the patient is being given IV albumin. Chest tubes are in place. The patient has 2 mediastinal chest tube and a pleural chest tube on the left and output has been in the order of 20 to 30 cc an hour. No evidence of any air leak. Chest x-ray from today shows no evidence of any pneumothorax, [place] catheter in place and the patient continues to have some atelectatic changes left lung base. Cardiac rhythm is sinus. WBC count is at 9.4 with a hemoglobin 10.5 and a platelet count of 121. The BUN is 15 with a creatinine of 0.72 and a sodium levels at 140. The patient is awake and alert and communicating. No other significant events overnight. The patient is using the incentive spirometer and she is pulling approximately 500 cc on her incentive spirometer. No other significant events overnight. On 06/01/2024, the patient is being seen for a follow-up. The patient is still recovering from a cardiac surgery. The patient is currently postoperative day #2 following coronary bypass surgery and aortic valve replacement. Noted the patient was weaned off the mechanical ventilator and the patient was extubated to a BiPAP and currently the patient is on oxygen by nasal cannula which is at 2 L. The patient did encounter some hypotension and low cardiac output yesterday. Based on that, the patient was started on milrinone which is currently running at 0.2 mcg/kg/min. Since then, his urine output is improved and the cardiac output is also improved and the patient's most recent cardiac output is 5.1 with an index of 2.6 with a PA pressure of 34/13. Blood pressure is stable for now. No significant hypotension. No altered mentation. Chest x-ray from today is showing cardiomegaly and mild pulm vessel congestion. Otherwise, no other acute abnormalities are noted. The patient continues to have the chest tubes in place with the left lower chest tube has drained around 150 cc over the past 24 hours and the mediastinal chest tube has drained approximately 150 cc over the past 24 hours. The patient has a right IJ [place] catheter in place. Awake and alert and communicating. Urine output is noted of 30 to 50 cc an hour. WBC count 11.7 with a hemoglobin of 0.4 and a platelet count of 102. BUN is 19 with a creatinine of 0.7 and sodium levels at 138. Remains on insulin drip which is running at 9 units an hour. Underlying cardiac rhythm is sinus. No other significant events overnight. 06/02/2024, the patient is being seen for a follow-up. The patient is sitting up in a chair and the patient is calm and comfortable hemodynamic stable on room air oxygen. Chest tubes have been removed. [place] catheter has been removed. The patient is on no pressors for now. The patient is incentive spirometer. Chest x-ray from today shows no significant abnormalities. Lungs are adequately expanded. Pulmonary vasculature is within normal limits. Otherwise, the patient remains in normal sinus rhythm. WBC count of 10.2 with a hemoglobin 8.7 and platelet count of 91. BUN 23 with a creatinine 0.8 and sodium levels at 135. She is using the incentive spirometer. She is ambulating. No other significant events overnight. No altered mentation. No angina or palpitations. 06/03/2024, I am seeing the patient for a follow-up. The patient is doing well. Sitting up in a chair. She is on room air oxygen. No respiratory distress. All of the chest tubes were removed. The patient is in normal sinus rhythm. No cough or sputum production. No chest pain. Surgical site is dry clean and intact. Follow-up chest x-ray that was done this morning shows some atelectatic change and small left sided pleural effusion. Otherwise, no other acute abnormalities noted. Service consult 9.5 with a hemoglobin of 9 and a platelet count of 123. BUN 30 with a creatinine of 1.03 and a sodium levels at 135 with a potassium level of 4.0. The patient is currently on aspirin and Plavix. The patient is also on metoprolol 50 mg p.o. twice daily. The patient on Levemir insulin 40 units twice daily and NovoLog sliding scale coverage. [place] catheter has been removed 2 days back. She is also on Synthroid 150 mcg 1 times a day. She is stooling. She is on high-dose statin. 06/04/2024, the patient is on room air oxygen. Denies having any specific complaints. The patient got transferred out of the intensive care unit yesterday and the patient is currently on a cardiac floor for now. Chest x-ray from today shows postsurgical changes. No other abnormalities have been noted. The patient is currently on room air oxygen. Blood work shows a white cell count of 8.9, hemoglobin 9.3 and platelet count of 184. BUN 30 with a creatinine of 0.8. Sodium levels at 139. The patient's otherwise has no specific complaints. Cardiac rhythm is sinus. The patient is on aspirin and Plavix. The patient is on Lasix 20 mg p.o. daily. The patient is on Levemir insulin 40 units twice daily and NovoLog sliding scale coverage. The patient is on metoprolol 50 mg twice a day and amiodarone 4 mg p.o. twice a day. Respiratory medications remain unchanged. The patient is postop day #5 following bypass surgery and aortic valve replacement. Objective - Vital Signs Vital signs: Vital Signs Temp 98 F 06/04/24 04:55 Pulse 77 06/04/24 04:55 Resp 17 06/04/24 04:55 BP 114/75 06/04/24 04:55 Pulse Ox 94 L 06/04/24 04:55 FiO2 30 06/03/24 04:00 Intake & Output 06/03/24 06/04/24 06/04/24 18:59 06:59 18:59 Intake Total 500 Output Total 1250 380 Balance -1250 120 Weight 109.5 kg 109.2 kg Intake: IV 20 Invasive Line 5 20 Oral 480 Output: Urine 1250 380 Other: Voiding Method Toilet Toilet # Voids 1 1 ABP, PAP, CO, CI - Last Documented Arterial Blood Pressure 126/64 Pulmonary Artery Pressure 37/17 Cardiac Output 4.6 Cardiac Index 2.4 - Exam CONSTITUTIONAL: Appears comfortable, cooperative, no acute distress RESPIRATORY: Lungs sounds diminished bilaterally. Respirations even, nonlabored. Currently on room air oxygen CARDIOVASCULAR: S1, S2 present. Regular rate and rhythm, sinus rhythm on telemetry. Sternum stable. Palpable peripheral pulses bilaterally. Trace generalized edema present. No calf pain or tenderness noted. Heart hugger in place with patient demonstrating appropriate use. Antiembolism stockings, SCDs present. GASTROINTESTINAL: Abdomen soft, nontender, nondistended. Active bowel sounds present 4 quadrants. Tolerating diet. Denies flatus, positive belching GENITOURINARY: Shea present draining clear, yellow urine. INTEGUMENTARY: Skin is warm and dry with evidence of good perfusion. Anterior chest incision well approximated and covered with dry intact dressing NEUROLOGIC: Cranial nerves II through XII intact MUSKULOSKELETAL: Able to move all extremities, strength equal bilaterally PSYCHIATRIC: Awake and alert, oriented to person place and time, flat affect, intact judgment and insight - Labs CBC & Chem 7: 06/04/24 06:33 09/28/24 06:33 Labs: Abnormal Lab Results - Last 24 Hours (Table) 06/03/24 06/03/24 06/03/24 Range/Units 11:27 16:14 20:18 RBC (3.80-5.40) m/uL Hgb (11.4-16.0) gm/dL Hct (34.0-46.0) % RDW (11.5-15.5) % POC Glucose (mg/dL) 169 H 122 H 155 H (70-110) mg/dL 06/04/24 06/04/24 Range/Units 02:12 06:33 RBC 3.28 L (3.80-5.40) m/uL Hgb 9.3 L (11.4-16.0) gm/dL Hct 28.6 L (34.0-46.0) % RDW 17.2 H (11.5-15.5) % POC Glucose (mg/dL) 120 H (70-110) mg/dL Assessment and Plan Plan: Post aortic valve replacement and single-vessel bypass surgery. The patient is currently postop day # 5. The patient is hemodynamically stable and the patient has no complaints for now. Doing well. [place] catheter has been removed. The patient got transferred out of the intensive care unit and the patient is currently on a cardiac floor. Postthoracotomy, extubated and the patient is currently on room air oxygen. All of the chest tubes have been removed. The patient is currently on room air oxygen. Bicuspid aortic valve with severe aortic stenosis and preserved LV function Coronary artery disease with previous PCI to LAD that was done in January 2023 Morbid obesity with obstructive sleep apnea Hypertension Diabetes mellitus type 2, currently on Levemir insulin 40 units twice a day Hyperlipidemia History of COPD/asthma Peripheral neuropathy involving the lower extremities bilaterally Anemia of chronic disease Stage I chronic kidney disease Lumbar disc disease Previous history of TIA Plan Continue using the incentive spirometer and the patient is doing aggressive pulm onary toileting. The patient is currently on room air oxygen Continue aspirin and Plavix Continue metoprolol 50 mg p.o. twice daily Keep the patient on a amiodarone for A-fib prophylaxis and her current cardiac rhythm is sinus Primacor has been discontinued All of the tubes have been removed and the patient is ambulating and the patient is clinically and hemodynamically stable. Patient was started on insulin Levemir 40 units twice a day and insulin replacement discontinued. The patient is also on insulin sliding scale coverage. Clinically and hemodynamically stable and will continue to follow.
--- NOTE | 2024-06-04 14:37 | P.PN ---
Subjective Progress Note Date: 06/04/24 This is a pleasant 54-year-old female who was admitted under cardiothoracic services with a significant past medical history of coronary artery disease with previous myocardial infarction's and stenting to the LAD, hypertension, hyperlipidemia, diabetes mellitus, insulin-dependent, previous CVA/TIA, morbid obesity, obstructive sleep apnea and uses a CPAP, COPD, hypothyroidism, anxiety disorder. Patient is status post coronary artery bypass grafting using the in situ left intramammary artery to the left anterior descending artery, aortic valve replacement. Patient continues on 2 L of oxygen via nasal cannula and weaning FiO2 as tolerated. Strongly encouraged incentive spirometer use at least 10 times every hour while awake. Patient is a known diabetic that takes large amounts of insulin including long-acting and sliding scale and will adjust accordingly as patient has been transitioned off the insulin drip yesterday. Current blood sugar is 225 and will adjust. 06/02/2024 Patient is seen in follow-up today with no acute overnight issues noted. Patient reports to tolerating diet and insulins were adjusted and tolerating well this patient has poorly controlled diabetes previously takes large amounts of insulin. Patient is afebrile and reports some chest wall discomfort and occasional cough although is using heart hugger. Encouraged incentive spirometer use at least 10 times every hour and patient is also doing breathing treatments. Medications being adjusted per cardiothoracic's and cardiology and is a downgrade out of the ICU once a 3 S. bed becomes available. Patient has b een up and walking and tolerating thus far. Encouraged at least 3-5 walks daily. Plan is for patient to return home on discharge. 06/03/2024 Patient is evaluated in follow-up in the intensive care unit sitting up in the chair. She reports improvement in her shortness of breath and having mild to moderate incisional pain. Patient does report some swelling to her upper lip it is noticeable on examination. She is not having any other facial swelling at this time. Patient was recently started on losartan 2 days ago and will discuss with the primary group. Blood work today reveals white blood cell count 9.5, hgb 9.0, sodium 135, BUN 30, creatinine 1.03. Blood sugar 130-160s. 06/04/2024 Patient is evaluated today in follow up on the step down unit. She is postoperative aorti valve replacement. Reports improved shortness of breath today. Chest xray reveals continued left lung small pleural effusion and atelectasis. She is on room air. Has been up ambulating. Patient is scheduled to be discharged home today. Discussed diabetic medications with patient and will cut back on her 24 units of long acting insulin with meals due to her decreased blood glucose in the hospital and can adjust as needed. Patient verbalizes agreeance to this plan. Not having any dysuria and urinalysis done here shows no evidence of infection and she can discontinue the macrobid on discharge. This was discussed with attending. Review of systems: Constitutional: No reports of fatigue, fever, or chills Cardiovascular: No reports of chest pain or palpitations, reports chest wall pain with movement and cough Respiratory: No reports of worsening shortness of breath, occasional painful cough GI: No reports of nausea, vomiting, or diarrhea : No reports of dysuria or retention Neurovascular: No reports of weakness or numbness All medications have been reviewed PHYSICAL EXAMINATION: GENERAL: The patient is alert and oriented x3, not in any acute distress. Well developed, well nourished. HEENT: Pupils are round and equally reacting to light. EOMI. No scleral icterus. No conjunctival pallor. Normocephalic, atraumatic. No pharyngeal erythema. No thyromegaly. CARDIOVASCULAR: S1 and S2 present. No murmurs, rubs, or gallops. PULMONARY: Chest is clear to auscultation, no wheezing or crackles. ABDOMEN: Soft, nontender, nondistended, normoactive bowel sounds. No palpable organomegaly. MUSCULOSKELETAL: No joint swelling or deformity. EXTREMITIES: No cyanosis, clubbing, or pedal edema. NEUROLOGICAL: Gross neurological examination did not reveal any focal deficits. SKIN: No rashes. Assessment: Status post aortic valve replacement Status post coronary artery bypass graft Diabetes mellitus, type II, uncontrolled with hyperglycemia, insulin-dependent History of hypertension History of morbid obesity with a BMI of 43.4 History of asthma/COPD, not in exacerbation GERD Hyperlipidemia History of sleep apnea with CPAP history of CVA previously GI prophylaxis DVT prophylaxis Full code Plan: Patient is status post CABG and aortic valve replacement doing relatively well has been downgraded to selective care from the ICU. Patient has been weaned to room air currently and continues to use the IS at the bedside. Encouraged incentive spirometer use at least 10 times every hour while awake Blood glucose controlled and oral diabetic medications have been resumed for discharge. We will continue to follow with cardiothoracic surgery during hospitalization. Thank you kindly for this consultation. Plan is for discharge home today. The impression and plan of care has been dictated by Rosina Neville, Nurse Practitioner as directed. Dr. Colton MD I have performed a history and physical examination and medical decision making of this patient, discussed the same with the dictator, and agree with the dictators assessment and plan as written, documented as a scribe. Based on total visit time, I have performed more than 50% of this visit. Objective - Vital Signs Vital signs: Vital Signs Temp 97.8 F 06/04/24 08:00 Pulse 78 06/04/24 08:56 Resp 16 06/04/24 08:00 BP 119/62 06/04/24 08:00 Pulse Ox 96 06/04/24 08:48 FiO2 30 06/03/24 04:00 Intake & Output 06/03/24 06/04/24 06/04/24 18:59 06:59 18:59 Intake Total 500 360 Output Total 1250 380 Balance -1250 120 360 Weight 109.5 kg 109.2 kg Intake: IV 20 Invasive Line 5 20 Oral 480 360 Output: Urine 1250 380 Other: Voiding Method Toilet Toilet Toilet # Voids 1 1 ABP, PAP, CO, CI - Last Documented Arterial Blood Pressure 126/64 Pulmonary Artery Pressure 37/17 Cardiac Output 4.6 Cardiac Index 2.4 - Labs CBC & Chem 7: 06/04/24 06:33 06/04/24 06:33 Labs: Abnormal Lab Results - Last 24 Hours (Table) 06/03/24 06/03/24 06/03/24 Range/Units 11:27 16:14 20:18 RBC (3.80-5.40) m/uL Hgb (11.4-16.0) gm/dL Hct (34.0-46.0) % RDW (11.5-15.5) % BUN (7-17) mg/dL POC Glucose (mg/dL) 169 H 122 H 155 H (70-110) mg/dL 06/04/24 06/04/24 06/04/24 Range/Units 02:12 06:33 06:33 RBC 3.28 L (3.80-5.40) m/uL Hgb 9.3 L (11.4-16.0) gm/dL Hct 28.6 L (34.0-46.0) % RDW 17.2 H (11.5-15.5) % BUN 30 H (7-17) mg/dL POC Glucose (mg/dL) 120 H (70-110) mg/dL Assessment and Plan Time with Patient: Less than 30
--- NOTE | 2024-06-04 14:37 | P.DS ---
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 Consult: post cardiac surgery Do you want consulting provider notified?: Yes Consult Physician Routine Consulting Provider: Allan Chang Consult Reason/Comments: Composition Tile Layer Consult: post cardiac surgery Do you want consulting provider notified?: Yes Consult Physician Routine Consulting Provider: Cody Segura Consult Reason/Comments: med marycruz; [place] patient Do you want consulting provider notified?: Yes Primary care physician: Cuca Iqbal [facility] Course: FINAL DIAGNOSIS: Severe bicuspid aortic valve stenosis with fusion of the right and the left cusps, S/P aortic valve replacement Coronary artery disease status with previous myocardial infarction post prior stenting to the left anterior descending artery with moderate proximal LAD stenosis, S/P single coronary artery bypass grafting Postoperative acute blood loss anemia and thrombocytopenia, expected given hemodilution and cardiopulmonary bypass pump History of hypertension Hyperlipidemia, cholesterol 251, triglycerides 267, LDL 169 Insulin-dependent diabetes mellitus, preoperative hemoglobin A1c 7.5% TIA a few years ago Obesity Obstructive sleep apnea using CPAP COPD/asthma, preoperative FEV1 82% of predicted Hypothyroidism, preoperative TSH 0.406 Anxiety disorder Previous tobacco dependence Occasional marijuana use Family history of premature coronary artery disease with father diagnosed in his 50s Preoperative urinary tract infection with E. coli, treated Preoperative nasal swab positive for MSSA, treated PRINCIPAL PROCEDURE: 1. Single coronary artery bypass grafting using the in situ left intramammary artery to the left anterior descending artery 2. Aortic valve replacement using a 23 mm Inspiris Resilia pericardial biopros thesis 3. Exclusion of the left atrial appendage using a 35 mm AtriClip 4. Intraoperative transesophageal echocardiogram performed by anesthesia 5. Epiaortic scanning 6. MEDISTIM graft flow measurement 7. Reinforcement of the sternal closure with 2 plates sternalock EZ SYSTEM HISTORY OF PRESENT ILLNESS: This is a 54-year-old female patient who follows on an outpatient basis with Dr. Cuca Iqbal for her primary care and with Dr. STUART Beck for her cardiology care. The patient has a past medical history significant for coronary artery disease with previous stenting of the left anterior descending coronary artery, and also has a history of a bicuspid aortic valve which has been monitored by cardiology on an outpatient basis. The patient has had symptoms of shortness of breath, although due to the patient's elevated hemoglobin A1c of 11.0 it was felt best that her diabetes was medically optimized prior to proceeding with elective aortic valve replacement surgery and coronary artery bypass grafting surgery. In March 2024 the patient underwent a transesophageal echocardiogram which demonstrated a bicuspid aortic valve Everette type I with fusion of the right and left coronary cusps, evidence of severe aortic valve stenosis with a mean gradient of 40 mmHg, and aortic valve area of 0.7 cm, mild aortic valve insufficiency, a mildly dilated ascending aorta, and mild mitral valve regurgitation. Subsequently, due to the patient's history of bicuspid aortic valve with severe stenosis, and coronary artery disease she was evaluated by Dr. Carlee Arroyo from cardiothoracic surgery. Dr. Arroyo met with the patient, reviewed treatment options, including myocardial vascularization surgery and aortic valve replacement surgery. Risks and benefits of surgery including the STS risk or were discussed with the patient and knowing and understanding the risks the patient wished to proceed with the surgical option. HOSPITAL COURSE: On May 30, 2024 the patient was taken to the preoperative area, and after obtaining consent he was prepared in usual fashion, and was subsequently taken to the operating room where Dr. Carele Arroyo performed a single coronary artery bypass grafting using the in situ left intramammary artery to the left anterior descending artery, and an aortic valve replacement using a 23 mm Inspiris Resilia pericardial bioprosthesis. Upon completion of the surgery the patient was transferred to the cardiovascular intensive care unit where she was recovered and monitored hemodynamically. She was subsequently extubated, all lines, tubes, and drips were discontinued when appropriate, and transfer orders were placed to the third floor cardiac stepdown unit for further monitoring and rehabilitation. Her oxygen was titrated down, she continued to work with physical and occupational therapy, she was tolerating an oral diet, and her pain was controlled. The patient is being discharged home on postoperative day #5 with [facility] home health care. She received written and verbal instruction regarding his medications, activity restrictions, signs and symptoms requiring physician notification, and follow-up appointments. Plan - Discharge Summary Discharge Rx Participant: No New Discharge Prescriptions: New Furosemide [Lasix] 20 mg PO DAILY #5 tab Clopidogrel [Plavix] 75 mg PO HS #30 tab Aspirin 325 mg PO DAILY #30 tab Amiodarone [Cordarone] 400 mg PO BID #35 tab Losartan [Cozaar] 50 mg PO DAILY@1200 #30 tab Metoprolol Tartrate [Lopressor] 50 mg PO BID #60 tab Sennosides-Docusate Sodium [Senokot-S] 2 each PO HS #14 tab Continue Montelukast [Singulair] 10 mg PO HS PARoxetine HCL [Paxil] 40 mg PO DAILY Insulin Glargine,Hum.rec.anlog [Lantus Solostar Pen] 50 units SQ HS oxyCODONE-APAP 5-325MG [Percocet 5-325 mg] 1 tab PO TID PRN PRN Reason: Pain tiZANidine [Zanaflex] 4 mg PO HS Tirzepatide [Mounjaro] 5 mg SQ TH Nystatin 100,000 Unit/gm Powd [Mycostatin Powder] 1 applic TOPICAL BID PRN PRN Reason: Skin Irritation metFORMIN HCL 1,000 mg PO BID Atorvastatin [Lipitor] 40 mg PO HS Ondansetron [Zofran] 4 mg PO Q8HR PRN 4 Days #10 tab PRN Reason: Nausea And Vomiting INSULIN LISPRO (HumaLOG) [humaLOG] See Protocol SQ ACHS Empagliflozin [Jardiance] 10 mg PO DAILY Levothyroxine Sodium 150 mcg PO DAILY Fluticasone Nasal [place] [Flonase Nasal [place]] 2 spr EA NOSTRIL HS PRN PRN Reason: Nasal Congestion Ergocalciferol [Vitamin D2 (1250 Mcg = 65678 Iu)] 1,250 mcg PO TU Diclofenac Sodium Gel [Voltaren 1% Gel] 1 applic TOPICAL BID PRN PRN Reason: Pain Butalb/APAP/Caff 50-325-40Mg [Fioricet 50-325-40] 1 tab PO BID PRN PRN Reason: Migraine Headache Pantoprazole [Protonix] 40 mg PO DAILY Ferrous Sulfate [Iron (65 MG Elemental)] 325 mg PO DAILY Budesonide 0.5 mg INHALATION DIRECTED PRN PRN Reason: Shortness Of Breath Changed INSULIN LISPRO (HumaLOG) [humaLOG] 4 units SQ AC-TID #0 Discontinued Metoprolol Succinate (ER) [Toprol XL] 50 mg PO DAILY Isosorbide Mononitrate ER [Imdur] 30 mg PO DAILY Nitrofurantoin Monohyd/M-Cryst [Macrobid] 100 mg PO Q12HR #14 cap Discharge Medication List Montelukast [Singulair] 10 mg PO HS 04/16/17 [History] PARoxetine HCL [Paxil] 40 mg PO DAILY 12/27/18 [History] Empagliflozin [Jardiance] 10 mg PO DAILY 01/13/23 [History] Insulin Glargine,Hum.rec.anlog [Lantus Solostar Pen] 50 units SQ HS 01/13/23 [History] oxyCODONE-APAP 5-325MG [Percocet 5-325 mg] 1 tab PO TID PRN 01/13/23 [History] tiZANidine [Zanaflex] 4 mg PO HS 01/13/23 [History] Atorvastatin [Lipitor] 40 mg PO HS 01/14/24 [History] Butalb/APAP/Caff 50-325-40Mg [Fioricet 50-325-40] 1 tab PO BID PRN 01/14/24 [History] Diclofenac Sodium Gel [Voltaren 1% Gel] 1 applic TOPICAL BID PRN 01/14/24 [History] Ergocalciferol [Vitamin D2 (1250 Mcg = 20366 Iu)] 1,250 mcg PO TU 01/14/24 [History] Fluticasone Nasal [place] [Flonase Nasal [place]] 2 spr EA NOSTRIL HS PRN 01/14/24 [History] Levothyroxine Sodium 150 mcg PO DAILY 01/14/24 [History] Nystatin 100,000 Unit/gm Powd [Mycostatin Powder] 1 applic TOPICAL BID PRN 01/14/24 [History] Tirzepatide [Mounjaro] 5 mg SQ TH 01/14/24 [History] metFORMIN HCL 1,000 mg PO BID 01/14/24 [History] Ondansetron [Zofran] 4 mg PO Q8HR PRN 4 Days #10 tab 01/17/24 [Rx] Ferrous Sulfate [Iron (65 MG Elemental)] 325 mg PO DAILY 02/20/24 [History] Pantoprazole [Protonix] 40 mg PO DAILY 02/20/24 [History] INSULIN LISPRO (HumaLOG) [humaLOG] See Protocol SQ ACHS 03/30/24 [History] Budesonide 0.5 mg INHALATION DIRECTED PRN 05/26/24 [History] Amiodarone [Cordarone] 400 mg PO BID #35 tab 06/04/24 [Rx] Aspirin 325 mg PO DAILY #30 tab 06/04/24 [Rx] Clopidogrel [Plavix] 75 mg PO HS #30 tab 06/04/24 [Rx] Furosemide [Lasix] 20 mg PO DAILY #5 tab 06/04/24 [Rx] INSULIN LISPRO (HumaLOG) [humaLOG] 4 units SQ AC-TID #0 06/04/24 [Rx] Losartan [Cozaar] 50 mg PO DAILY@1200 #30 tab 06/04/24 [Rx] Metoprolol Tartrate [Lopressor] 50 mg PO BID #60 tab 06/04/24 [Rx] Sennosides-Docusate Sodium [Senokot-S] 2 each PO HS #14 tab 06/04/24 [Rx] Follow up Appointment(s)/Referral(s): Sara aPul NPC [Nurse Practitioner] - 06/10/24 12:30 pm (You will be seen in the surgeon's office behind the hospital in [facility], [address]. Office phone number is ) Reilly Beck MD [STAFF PHYSICIAN] - 06/20/24 4:00 pm Rehab Papa ROBERTSCardiac [NON-STAFF] - 4 Weeks (You will receive a phone call in approximately 4-6 weeks for evaluation for cardiac rehab) Carlee Arroyo MD [STAFF PHYSICIAN] - 07/01/24 10:00 am Cuca Iqbal MD [Primary Care Provider] - 06/23/24 1:30 pm Shane Beck MD [STAFF PHYSICIAN] - 06/14/24 2:45 pm [facility] Visiting Nurse, [NON-STAFF] - Ambulatory/Diagnostic Orders: Complete Blood Count w/diff [LAB.AMB] Time Frame: 06/07/24, Facility: [facility], Location: Laboratory [facility] Comprehensive Metabolic Panel [LAB.AMB] Time Frame: 06/07/24, Facility: [facility], Location: Laboratory [facility] Activity/Diet/Wound Care/Special Instructions: DISCHARGE INSTRUCTIONS: 1. No driving for 4 weeks, or until physician gives their ok. 2. The patient should sleep in their own bed, no medical bed needed. 3. Stairs are not an issue. If the bedroom is upstairs, it is advised that the patient go up at night and down in the morning for the first week. Go slowly, using handrail and take 1 step at a time. 4. KUMAR hose are to be worn for 30 days post surgery or until physician discontinues. 5. Heart hugger is to be worn 100% of the time until physician discontinu es.(except when showering) 6. No lifting, pushing, or pulling more than 10 pounds for 12 weeks. The physician will advise of any restriction changes. 7. The patient is expected to continue the prescribed walking program. 8. Continue pain control per as needed orders. 9. Continue with incentive spirometry and splinting/heart hugger until otherwise directed by the physician. 10. Must shower daily using liquid antibacterial soap 11. Routine sternal incision care. No powders, lotions, ointments on incisions. No dressings are necessary on incisions unless they are draining. Dermabond tape is to remain on sternal incision until surgeon follow-up. 12. Please call surgeon/CHAR BELT OPERATOR for temp greater than 101 F or purulent drainage from incisions. 13. You should weigh yourself daily, record and bring log with you to follow up appointments. 14. All prescriptions given by surgeon for 30 days. Refills need to be filled through company controller/primary care physician. 15. A Red armband has been placed on the patient. It should be worn for 30 days post discharge from surgery and will be removed by the cardiac surgeons. If an ER visit is necessary, please make sure the number on the Red armband is called before going to ER. 16. You have been referred to and are expected to begin Cardiac Rehab in approximately 4-6 weeks. 17. Quitting smoking is the most important step you can take to improve your health. For additional information and assistance to quit smoking, please call the [place] tobacco quit line (9-584-GYGA-NOW/ ) or online: [email or web address]/[email or web address]/rij-oa-nphi-tobacco HOME HEALTH SERVICES TO PROVIDE: RN SKILLED HOME CARE SERVICES FOR POST-OP SURGICAL PATIENTS WITH THE FOLLOWING: Coronary Artery Bypass Surgery (CABG), Mitral Valve Replacement/Repair ( MVR), Aortic Valve Replacement/Repair (AVR) RN TO CONTINUE EDUCATION FROM ``ROAD TO A HEALTH HEART PATIENT EDUCATION MANUAL (GIVEN TO PATIENT IN THE HOSPITAL) MEDICATION RECONCILIATION WITH EDUCATION NEEDED ON FIRST HOME VISIT EMPHASIZE IMPORTANCE OF WEARING BREAST SUPPORT/HEART HUGGER ENCOURAGE USE OF INCENTIVE SPIROMETER 10 X EVERY HOUR WHILE AWAKE ENCOURAGE UTILIZATION OF LOWER EXTREMITY COMPRESSION STOCKINGS/KUMAR HOSE and ELEVATE LEGS ABOVE LEVEL OF HEART WHILE AT REST. ENCOURAGE AMBULATION 3-5x/day INCREASING TOLERATES, WHILE AVOIDING EXTREMES IN TEMPERATURE FREQUENCY: RN TO OPEN THE PATIENT WITHIN 24 HOURS OF DISCHARGE FROM THE HOSPITAL WITH TELEHEALTH INSTALLED AT [facility] [place], RN TO VISIT 2-3 X A WEEK FOR 4 WEEKS ESTABLISHED BY PATIENT NEEDS. LABORATORY: CBC, CMP TO BE DRAWN ON THE THIRD DAY HOME, (RAN STAT) FAX RESULTS TO [phone]. TELEHEALTH PARAMETERS: WEIGHT: NOTIFY MD OF WEIGHT GAIN OF 2 LBS IN 24 HOURS OR 5 LBS IN ONE WEEK HR: NOTIFY MD OF HR <55 BPM OR HR>100 BPM BP: NOTIFY MD IF BP <90/55 OR BP>140/100 O2 SAT: NOTIFY MD IF PO2<93% ON ROOM AIR SEND TELEHEALTH REPORT TO PRINT DECORATOR AND CARDIOVASCULAR SURGEON THE FIRST WEEK OF CARE AND THEN BI-WEEKLY. PLEASE ADDITIONALLY COMMUNICATE ANY ABNORMALS AND NEW FINDINGS TO THE SURGEONS OFFICE. Discharge Disposition: HOME WITH HOME HEALTH SERVICES
== END 2024-06-04 15:18 | disposition home health service (06) | DRG 163 ==
LOC: 2ORMAIN 05:35 → 2SICU 13:50 → 3SCARD 06-04 04:39
PROVIDERS: ADMIT Surgery; ATTEND Surgery
PROC: B24BZZ4 Ultrasonography of Heart with Aorta, Transesophageal (ICD-10-PCS; principal; 2024-05-30 08:00)
PROC: 02100Z9 Bypass Coronary Artery, One Artery from Left Internal Mammary, Open Approach (ICD-10-PCS; principal; 2024-05-30 08:00)
PROC: 03B10ZZ Excision of Left Internal Mammary Artery, Open Approach (ICD-10-PCS; principal; 2024-05-30 08:00)
PROC: 02L70CK Occlusion of Left Atrial Appendage with Extraluminal Device, Open Approach (ICD-10-PCS; principal; 2024-05-30 08:00)
PROC: 5A1221Z Performance of Cardiac Output, Continuous (ICD-10-PCS; principal; 2024-05-30 08:00)
PROC: 3E033RZ Introduction of Antiarrhythmic into Peripheral Vein, Percutaneous Approach (ICD-10-PCS; principal; 2024-05-30 08:00)
PROC: 02RF08Z Replacement of Aortic Valve with Zooplastic Tissue, Open Approach (ICD-10-PCS; principal; 2024-05-30 08:00)
DX: I35.2 Nonrheumatic aortic (valve) stenosis with insufficiency (principal); I25.10 Atherosclerotic heart disease of native coronary artery without angina pectoris; Q23.1 Congenital insufficiency of aortic valve; E66.01 Morbid (severe) obesity due to excess calories; Z68.41 Body mass index [BMI] 40.0-44.9, adult; G47.33 Obstructive sleep apnea (adult) (pediatric); E78.5 Hyperlipidemia, unspecified; J44.89 Other specified chronic obstructive pulmonary disease; I12.9 Hypertensive chronic kidney disease with stage 1 through stage 4 chronic kidney disease, or unspecified chronic kidney disease; N18.1 Chronic kidney disease, stage 1; D63.1 Anemia in chronic kidney disease; M51.36 Other intervertebral disc degeneration, lumbar region; N39.0 Urinary tract infection, site not specified; B96.20 Unspecified Escherichia coli [E. coli] as the cause of diseases classified elsewhere; E11.42 Type 2 diabetes mellitus with diabetic polyneuropathy; E11.22 Type 2 diabetes mellitus with diabetic chronic kidney disease; D69.6 Thrombocytopenia, unspecified; Z79.4 Long term (current) use of insulin; E11.65 Type 2 diabetes mellitus with hyperglycemia; I77.819 Aortic ectasia, unspecified site; F32.A Depression, unspecified; E03.9 Hypothyroidism, unspecified; J90 Pleural effusion, not elsewhere classified; I95.9 Hypotension, unspecified; E87.29 Other acidosis; D62 Acute posthemorrhagic anemia; F41.0 Panic disorder [episodic paroxysmal anxiety]; K21.9 Gastro-esophageal reflux disease without esophagitis; J98.11 Atelectasis; M19.90 Unspecified osteoarthritis, unspecified site; B95.61 Methicillin susceptible Staphylococcus aureus infection as the cause of diseases classified elsewhere; Z95.5 Presence of coronary angioplasty implant and graft; Z86.73 Personal history of transient ischemic attack (TIA), and cerebral infarction without residual deficits; Z87.891 Personal history of nicotine dependence; Z79.899 Other long term (current) drug therapy; Z79.890 Hormone replacement therapy; Z79.84 Long term (current) use of oral hypoglycemic drugs; Z82.49 Family history of ischemic heart disease and other diseases of the circulatory system; I25.2 Old myocardial infarction; Z88.1 Allergy status to other antibiotic agents; Z88.6 Allergy status to analgesic agent; Z91.041 Radiographic dye allergy status; Z88.2 Allergy status to sulfonamides; Z88.8 Allergy status to other drugs, medicaments and biological substances; Z88.0 Allergy status to penicillin
CPT/HCPCS: 71045; 71046; 80048; 80053; 81003; 82330; 82805; 83036; 83735; 85025; 85027; 85520; 85610; 85730; 86891; 87086; 88305; 88311; 94002; 94640; 94660; 94760

== ENCOUNTER 2024-06-26 13:57 | Emergency (ER) | payer OTHER ==
--- NOTE | 2024-06-26 14:30 | ED ---
SOB HPI - General Source: patient, RN notes reviewed <Rima Queen - Last Filed: 06/26/24 14:27> <Nasrin Handley - Last Filed: 06/30/24 00:08> - General Stated Complaint: Post-op dizziness Time Seen by Provider: 06/26/24 14:11 - History of Present Illness Initial Comments: Quick [id number] female presents emergency department with her for chief complaint of headaches and lightheadedness. Patient had an CABG 06/29/24 she has been experiencing intermittent headaches, nausea, lightheadedness. Additionally she has been experiencing hypotension. Patient's follow-up appo intment is 07/07/24. (Rima Queen) 54-year-old female presenting with chief complaint of dizziness ongoing since Thursday. Patient reports that when she stands that she "sees stars". She also admits to nausea, headache, sweating, and generalized weakness. Patient had a CABG performed on 06/29/2024. Her follow-up appointment on 07/07/2024. She denies any new chest pain, just her postoperative soreness. She has been short of breath. No fevers. No vomiting. No abdominal pain. (Nasrin Handley) - Related Data Home Medications Medication Instructions Recorded Confirmed Montelukast [Singulair] 10 mg PO HS 04/16/17 05/30/24 PARoxetine HCL [Paxil] 40 mg PO DAILY 12/27/18 05/30/24 Empagliflozin [Jardiance] 10 mg PO DAILY 01/13/23 05/30/24 Insulin Glargine,Hum.rec.anlog 50 units SQ HS 01/13/23 05/30/24 [Lantus Solostar Pen] oxyCODONE-APAP 5-325MG [Percocet 1 tab PO TID PRN 01/13/23 05/30/24 5-325 mg] tiZANidine [Zanaflex] 4 mg PO HS 01/13/23 05/30/24 Atorvastatin [Lipitor] 40 mg PO HS 01/14/24 05/30/24 Butalb/APAP/Caff 50-325-40Mg 1 tab PO BID PRN 01/14/24 05/30/24 [Fioricet 50-325-40] Diclofenac Sodium Gel [Voltaren 1% 1 applic TOPICAL BID PRN 01/14/24 05/30/24 Gel] Ergocalciferol [Vitamin D2 (1250 1,250 mcg PO TU 01/14/24 05/30/24 Mcg = 54946 Iu)] Fluticasone Nasal [place] [Flonase 2 spr EA NOSTRIL HS PRN 01/14/24 05/30/24 Nasal [place]] Levothyroxine Sodium 150 mcg PO DAILY 01/14/24 05/30/24 Nystatin 100,000 Unit/gm Powd 1 applic TOPICAL BID PRN 01/14/24 05/30/24 [Mycostatin Powder] Tirzepatide [Mounjaro] 5 mg SQ TH 01/14/24 05/30/24 metFORMIN HCL 1,000 mg PO BID 01/14/24 05/30/24 Ferrous Sulfate [Iron (65 MG 325 mg PO DAILY 02/20/24 05/30/24 Elemental)] Pantoprazole [Protonix] 40 mg PO DAILY 02/20/24 05/30/24 INSULIN LISPRO (HumaLOG) [humaLOG] See Protocol SQ ACHS 03/30/24 05/30/24 Budesonide 0.5 mg INHALATION DIRECTED PRN 05/26/24 05/30/24 Previous Rx's Medication Instructions Recorded Ondansetron [Zofran] 4 mg PO Q8HR PRN 4 Days #10 tab 01/17/24 Amiodarone [Cordarone] 400 mg PO BID #35 tab 06/04/24 Aspirin 325 mg PO DAILY #30 tab 06/04/24 Clopidogrel [Plavix] 75 mg PO HS #30 tab 06/04/24 Furosemide [Lasix] 20 mg PO DAILY #5 tab 06/04/24 INSULIN LISPRO (HumaLOG) [humaLOG] 4 units SQ AC-TID #0 06/04/24 Losartan [Cozaar] 50 mg PO DAILY@1200 #30 tab 06/04/24 Metoprolol Tartrate [Lopressor] 50 mg PO BID #60 tab 06/04/24 Sennosides-Docusate Sodium 2 each PO HS #14 tab 06/04/24 [Senokot-S] Allergies Allergy/AdvReac Type Severity Reaction Status Date / Time adhesive Allergy red skin Verified 06/26/24 14:49 ciprofloxacin [From Cipro] Allergy Itching Verified 06/26/24 14:49 hydroxyzine Allergy Itching Verified 06/26/24 14:49 Iodinated Contrast Media Allergy Itching Verified 06/26/24 14:49 [Iodinated Contrast Media - IV Dye] prednisone Allergy Rapid Verified 06/26/24 14:49 Heart Rate, Panic attack Sulfa (Sulfonamide Allergy Anaphylaxis Verified 06/26/24 14:49 Antibiotics) verapamil Allergy Anaphylaxis Verified 06/26/24 14:49 celecoxib [From Celebrex] AdvReac CAUSES GI Verified 06/26/24 14:49 BLEEDING cephalexin monohydrate AdvReac Vomiting Verified 06/26/24 14:49 [From Keflex] diphenhydramine AdvReac arm burned Verified 06/26/24 14:49 [From Benadryl] when given IV Penicillins AdvReac Anaphylaxis Verified 06/26/24 14:49 tramadol AdvReac Nausea & Verified 06/26/24 14:49 Vomiting Review of Systems ROS Other: All systems not noted in ROS Statement are negative. <Rima Queen - Last Filed: 06/26/24 14:27> ROS Other: All systems not noted in ROS Statement are negative. <Nasrin Handley - Last Filed: 06/30/24 00:08> ROS Statement: Those systems with pertinent positive or pertinent negative responses have been documented in the HPI. Past Medical History Past Medical History: Asthma, Chest Pain / Angina, COPD, CVA/TIA, Diabetes Mellitus, Hyperlipidemia, Hypertension Additional Past Medical History / Comment(s): neuoropathy, RT CATARACT TIA History of Any Multi-Drug Resistant Organisms: None Reported Past Surgical History: Adenoidectomy, Cholecystectomy, Heart Catheterization With Stent, Tonsillectomy Additional Past Surgical History / Comment(s): D&C, carpal tunnel surgery left , LT ARM SX FOR "PINCHED NERVE", LT THUMB TRIGGER FINGER, rae neuroma removed left foot, heart cath 2015 , right ankle fx 01/2018 no surgery , LT CATARACT REMOVED WITH LENS IMPLANT thyroidectomy Past Anesthesia/Blood Transfusion Reactions: Previous Problems w/ Anesthesia, Motion Sickness Additional Past Anesthesia/Blood Transfusion Reaction / Comment(s): difficulty waking from anesthesia Date of Last Stent Placement:: 2022 Past Drug Use History: None Reported Additional Drug Use History / Comment(s): . - Past Family History Father Family Medical History: Cancer Additional Family Medical History / Comment(s): skin Mother Family Medical History: Diabetes Mellitus, Hypertension, Osteoarthritis (OA) Additional Family Medical History / Comment(s): MURMUR Sister(s) Family Medical History: Cancer Additional Family Medical History / Comment(s): ovarian <Rima Queen - Last Filed: 06/26/24 14:27> General Exam <Rima Queen - Last Filed: 06/26/24 14:27> Limitations: no limitations General appearance: alert, in no apparent distress Head exam: Present: atraumatic, normocephalic Eye exam: Present: normal appearance, EOMI Neck exam: Present: normal inspection. Absent: meningismus Respiratory exam: Present: normal lung sounds bilaterally. Absent: respiratory distress, wheezes, rales, rhonchi, stridor Cardiovascular Exam: Present: regular rate, normal rhythm, normal heart sounds. Absent: systolic murmur, diastolic murmur, rubs, gallop, clicks Neurological exam: Present: alert, oriented X3 Psychiatric exam: Present: normal affect, normal mood Skin exam: Present: warm, dry <Nasrin Handley - Last Filed: 06/30/24 00:08> - General Exam Comments Initial Comments: Visual Physical Exam Vital signs reviewed General: Well-appearing, nontoxic, no acute distress. Head: Normocephalic, atraumatic Eyes: PERRLA, EOMI ENT: Airway patent Chest: Nonlabored breathing Skin: No visual rash, normal skin tone Neuro: Alert and oriented 3 Musculoskeletal: No gross abnormalities (Rima Queen) Course Vital Signs 06/26/24 14:49 Temperature 98.7 F Pulse Rate 83 Respiratory 18 Rate Blood Pressure 116/76 O2 Sat by Pulse 98 Oximetry Medical Decision Making <Rima Queen - Last Filed: 06/26/24 14:27> <Nasrin Handley - Last Filed: 06/30/24 00:08> - Medical Decision Making I completed the quick note portion of this chart signed Rima Queen PA-C (Rima Queen) Was pt. sent in by a medical professional or institution (LUANNE Retana, TALENT ACQUISITION PROJECT MANAGER, urgent care, hospital, or jail...) When possible be specific @ -No Did you speak to anyone other than the patient for history (EMS, parent, family, police, friend...)? What history was obtained from this source @ -No Did you review nursing and triage notes (agree or disagree)? Why? @ -I reviewed and agree with nursing and triage notes Were old charts reviewed (outside hosp., previous admission, EMS record, old EKG, old radiological studies, urgent care reports/EKG's, jail records)? Report findings @ -No old charts were reviewed Differential Diagnosis (chest pain, altered mental status, abdominal pain women, abdominal pain men, vaginal bleeding, weakness, fever, dyspnea, syncope, headache, dizziness, GI bleed, back pain, seizure, CVA, palpatations, mental health, musculoskeletal)? @ -MDM Differential Dizziness: Benign paroxysmal positional Vertigo, Menieres disease, otitis media, acoustic neuroma, vertebrobasilar insufficiency, cerebellar stroke, encephalitis, hypovolemic, arrhythmia, coronary artery syndrome, anemia this is not meant to be an all-inclusive list EKG interpreted by me (3pts min.). @ -As above X-rays interpreted by me (1pt min.). @ -Chest x-ray shows no acute cardiopulmonary disease/process. Hepatomegaly with small left pleural effusion CT interpreted by me (1pt min.). @ -None done U/S interpreted by me (1pt. min.). @ -None done What testing was considered but not performed or refused? (CT, X-rays, U/S, labs)? Why? @ -Labs and EKG were ordered, however patient refused stating that she has been here for several hours and wants to go home What meds were considered but not given or refused? Why? @ -None Did you discuss the management of the patient with other professionals (professionals i.e. DrJalyn, PA, TALENT ACQUISITION PROJECT MANAGER, lab, RT, psych nurse, foster care social worker, brim stretching machine operator, teacher, chief resource officer, telehealth case manager)? Give summary @ -No Was smoking cessation discussed for >3mins.? @ -No Was critical care preformed (if so, how long)? @ -No Were there social determinants of health that impacted care today? How? (Homelessness, low income, unemployed, alcoholism, drug addiction, t ransportation, low edu. Level, literacy, decrease access to med. care, penitentiary, rehab)? @ -No Was there de-escalation of care discussed even if they declined (Discuss DNR or withdrawal of care, Hospice)? DNR status @ -No What co-morbidities impacted this encounter? (DM, HTN, Smoking, COPD, CAD, Cancer, CVA, ARF, Chemo, Hep., AIDS, mental health diagnosis, sleep apnea, morbid obesity)? @ -CAD with recent CABG, diabetes, hypertension, hyperlipidemia Was patient admitted / discharged? Hospital course, mention meds given and route, prescriptions, significant lab abnormalities, going to OR and other pertinent info. @ -54-year-old female presenting with chief complaint of weakness and dizziness. She has history of a recent CABG. Workup was initiated by triage. Chest x-ray is obtained which shows no acute process. Patient was later brought back to a hallway bed and examined by myself. Labs and EKG were already ordered. Patient is refusing labs and EKG. Patient states that she has been here for several hours and wants to go home. I explained to the patient that if she leaves before a complete workup this may result in or permanent injury. I restated this multiple times. The patient conveys verbal understanding. She is of sound mind and body and able to make her own decisions. Patient signed out AGAINST MEDICAL ADVICE Undiagnosed new problem with uncertain prognosis? @ -No Drug Therapy requiring intensive monitoring for toxicity (Heparin, Nitro, Insulin, Cardizem)? @ -No Were any procedures done? @ -No Diagnosis/symptom? @ -Dizziness Acute, or Chronic, or Acute on Chronic? @ -Acute Uncomplicated (without systemic symptoms) or Complicated (systemic symptoms)? @ -Complicated Side effects of treatment? @ -No Exacerbation, Progression, or Severe Exacerbation? @ -No Poses a threat to life or bodily function? How? (Chest pain, [place], [place], pneumonia, PE, COPD, DKA, ARF, appy, cholecystitis, CVA, Diverticulitis, Homicidal, Suicidal, threat to staff... and all critical care pts) @ -Potential, complete workup was not finished (Nasrin Handley) Disposition <Rima Queen - Last Filed: 06/26/24 14:27> Is patient prescribed a controlled substance at d/c from ED?: No Time of Disposition: 20:19 <Nasrin Handley - Last Filed: 06/30/24 00:08> Clinical Impression: Dizziness Disposition: LEFT AGAINST MEDICAL ADVICE Condition: Undetermined Instructions (If sedation given, give patient instructions): Dizziness (ED) Additional Instructions: You understand by leaving AGAINST MEDICAL ADVICE this may result in or permanent injury. By signing paperwork you acknowledge this. You should report back to the ER with any new or worsening symptoms and follow- up with your PCP and surgeon. Referrals: Cuca Iqbal MD [Primary Care Provider] - 1-2 days
[2024-06-26 14:51] VITALS: BP 116/76; PULSE 83; RESP 18; TEMP 98.7
--- NOTE | 2024-06-26 16:03 | XR ---
EXAMINATION TYPE: XR chest 2V DATE OF EXAM: 06/26/2024 3:28 PM CLINICAL INDICATION: Female, 54 years old with history of CP, s/p CABG; [facility] COMPARISON: Chest radiographs from 05/27/2024 TECHNIQUE: XR chest 2V Frontal view of the chest. FINDINGS: Lungs/Pleura: Blunting of the left costophrenic angle.: There is no evidence of right pleural effusio n, focal consolidation, or pneumothorax. Pulmonary vascularity: Unremarkable. Heart/mediastinum: Cardiomediastinal silhouette is unremarkable. Post valve repair changes. Left atr ial appendage occlusion device is present. Musculoskeletal: No acute osseous pathology. Midline sternotomy wires are noted. Other findings: None IMPRESSION: No acute cardiopulmonary disease/process. Hepatomegaly with small left pleural effusion. [facility] Adiel Carl, , 06/26/2024 4:00 PM
[2024-06-26] MEDS: oxyCODONE-APAP 5-325MG 1 EACH TAB PO STA (20:03)
== END 2024-06-26 20:30 | disposition left against medical advice (07) ==
LOC: EC 13:57
CPT/HCPCS: 71046; 99284

== ENCOUNTER 2024-08-10 17:12 | Emergency (ER) | payer OTHER ==
[2024-08-10 17:32] VITALS: TEMP 99.6
[2024-08-10 18:22] LABS: Basophils % (A) 0 %; Eosinophils # (A) 0.2 k/uL (0-0.7); Eosinophils % (A) 3 %; HCT 40.5 % (34.0-46.0); HGB 13.2 gm/dL (11.4-16.0); Lymphocytes # (A) 1.5 k/uL (1.0-4.8); Lymphocytes % (A) 20 %; MCH 27.4 pg (25.0-35.0); MCHC 32.5 g/dL (31.0-37.0); MCV 84.2 fL (80.0-100.0); Mean Platelet Volume 7.3; Monocytes # (A) 0.4 k/uL (0-1.0); Monocytes % (A) 6 %; Neutrophils # (A) 5.1 k/uL (1.3-7.7); Neutrophils % (A) 69 %; Platelet Count 184 k/uL (150-450); RBC 4.81 m/uL (3.80-5.40); RDW 14.7 % (11.5-15.5); WBC 7.5 k/uL (3.8-10.6)
[2024-08-10 18:32] LABS: ALT 37 U/L (4-34); AST 38 U/L (14-36); African American GFR (CKD) 89 (>60 ml/min/1.73 sqM); Albumin 4.4 g/dL (3.5-5.0); Alkaline Phosphatase 95 U/L (38-126); Anion Gap 7 mmol/L; Blood Urea Nitrogen 18 mg/dL (7-17); Carbon Dioxide 28 mmol/L (22-30); Chloride 102 mmol/L (98-107); Glucose 142 mg/dL (74-99); Non-African American GFR(CKD) 77 (>60 ml/min/1.73 sqM); Potassium 4.6 mmol/L (3.5-5.1); Sodium 137 mmol/L (137-145); Total Bilirubin 0.5 mg/dL (0.2-1.3); Total Protein 7.8 g/dL (6.3-8.2)
[2024-08-10 18:35] LABS: INR 0.9 (<1.2)
[2024-08-10 18:36] LABS: Partial Thromboplastin Time 23.3 sec (22.0-30.0); Prothrombin Time 10.2 sec (10.0-12.5)
[2024-08-10 18:40] LABS: NT-Pro-B-Type Natriuretic Pept 115 pg/mL
--- NOTE | 2024-08-10 18:57 | XR ---
EXAMINATION TYPE: XR chest 2V DATE OF EXAM: 08/10/2024 CLINICAL HISTORY: Chest pain TECHNIQUE: Frontal and lateral views of the chest are obtained. COMPARISON: Prior chest x-ray June 26, 2024 FINDINGS: There is no focal air space opacity, pleural effusion, or pneumothorax seen. The cardiac silhouette size is stable and within normal limits. Left atrial appendage clip redemonstrated. [place] ing sternal wires again seen. Cardiac valve prosthesis redemonstrated. The osseous structures are i ntact. IMPRESSION: No acute process. [facility] Adiel Carl, , 08/10/2024 6:55 PM
--- NOTE | 2024-08-10 19:17 | ED ---
General Adult HPI - General Chief complaint: Chest Pain Stated complaint: chest pain Time Seen by Provider: 08/10/24 18:47 Source: patient Mode of arrival: ambulatory Limitations: no limitations - History of Present Illness Initial comments: Dictation was produced using Zoji dictation software. please excuse any grammatical, word or spelling errors. Chief Complaint: 54-year-old female with acute on chronic chest pain History of Present Illness: Patient is a 54-year-old female presents to the emergency department with acute on chronic chest pain she states that the pain is to her lower sternum. States that it feels sharp stabbing especially when she twists moves or takes a deep breath. Patient has history of bypass grafting procedure performed in May of this year. States that since the surgery she has been having symptoms like this. Denies any nausea. No pressure on the chest. Nonradiating not associate diaphoresis or nausea. Patient reports that she feels as if there is a bubble under her breastbone. The ROS documented in this emergency department record has been reviewed and confirmed by me. Those systems with pertinent positive or negative responses have been documented in the HPI. All other systems are other negative and/or noncontributory. - Related Data Home Medications Medication Instructions Recorded Confirmed Montelukast [Singulair] 10 mg PO HS 04/16/17 05/30/24 PARoxetine HCL [Paxil] 40 mg PO DAILY 12/27/18 05/30/24 Empagliflozin [Jardiance] 10 mg PO DAILY 01/13/23 05/30/24 Insulin Glargine,Hum.rec.anlog 50 units SQ HS 01/13/23 05/30/24 [Lantus Solostar Pen] oxyCODONE-APAP 5-325MG [Percocet 1 tab PO TID PRN 01/13/23 05/30/24 5-325 mg] tiZANidine [Zanaflex] 4 mg PO HS 01/13/23 05/30/24 Atorvastatin [Lipitor] 40 mg PO HS 01/14/24 05/30/24 Butalb/APAP/Caff 50-325-40Mg 1 tab PO BID PRN 01/14/24 05/30/24 [Fioricet 50-325-40] Diclofenac Sodium Gel [Voltaren 1% 1 applic TOPICAL BID PRN 01/14/24 05/30/24 Gel] Ergocalciferol [Vitamin D2 (1250 1,250 mcg PO TU 01/14/24 05/30/24 Mcg = 47451 Iu)] Fluticasone Nasal [place] [Flonase 2 spr EA NOSTRIL HS PRN 01/14/24 05/30/24 Nasal [place]] Levothyroxine Sodium 150 mcg PO DAILY 01/14/24 05/30/24 Nystatin 100,000 Unit/gm Powd 1 applic TOPICAL BID PRN 01/14/24 05/30/24 [Mycostatin Powder] Tirzepatide [Mounjaro] 5 mg SQ TH 01/14/24 05/30/24 metFORMIN HCL 1,000 mg PO BID 01/14/24 05/30/24 Ferrous Sulfate [Iron (65 MG 325 mg PO DAILY 02/20/24 05/30/24 Elemental)] Pantoprazole [Protonix] 40 mg PO DAILY 02/20/24 05/30/24 INSULIN LISPRO (HumaLOG) [humaLOG] See Protocol SQ ACHS 03/30/24 05/30/24 Budesonide 0.5 mg INHALATION DIRECTED PRN 05/26/24 05/30/24 Previous Rx's Medication Instructions Recorded Ondansetron [Zofran] 4 mg PO Q8HR PRN 4 Days #10 tab 01/17/24 Amiodarone [Cordarone] 400 mg PO BID #35 tab 06/04/24 Aspirin 325 mg PO DAILY #30 tab 06/04/24 Clopidogrel [Plavix] 75 mg PO HS #30 tab 06/04/24 Furosemide [Lasix] 20 mg PO DAILY #5 tab 06/04/24 INSULIN LISPRO (HumaLOG) [humaLOG] 4 units SQ AC-TID #0 06/04/24 Losartan [Cozaar] 50 mg PO DAILY@1200 #30 tab 06/04/24 Metoprolol Tartrate [Lopressor] 50 mg PO BID #60 tab 06/04/24 Sennosides-Docusate Sodium 2 each PO HS #14 tab 06/04/24 [Senokot-S] Allergies Allergy/AdvReac Type Severity Reaction Status Date / Time adhesive Allergy red skin Verified 08/10/24 17:32 ciprofloxacin [From Cipro] Allergy Itching Verified 08/10/24 17:32 hydroxyzine Allergy Itching Verified 08/10/24 17:32 Iodinated Contrast Media Allergy Itching Verified 08/10/24 17:32 [Iodinated Contrast Media - IV Dye] prednisone Allergy Rapid Verified 08/10/24 17:32 Heart Rate, Panic attack Sulfa (Sulfonamide Allergy Anaphylaxis Verified 08/10/24 17:32 Antibiotics) verapamil Allergy Anaphylaxis Verified 08/10/24 17:32 celecoxib [From Celebrex] AdvReac CAUSES GI Verified 08/10/24 17:32 BLEEDING cephalexin monohydrate AdvReac Vomiting Verified 08/10/24 17:32 [From Keflex] diphenhydramine AdvReac arm burned Verified 08/10/24 17:32 [From Benadryl] when given IV Penicillins AdvReac Anaphylaxis Verified 08/10/24 17:32 tramadol AdvReac Nausea & Verified 08/10/24 17:32 Vomiting Review of Systems ROS Statement: Those systems with pertinent positive or pertinent negative responses have been documented in the HPI. ROS Other: All systems not noted in ROS Statement are negative. Past Medical History Past Medical History: Asthma, Chest Pain / Angina, COPD, CVA/TIA, Diabetes Mellitus, Hyperlipidemia, Hypertension Additional Past Medical History / Comment(s): neuoropathy, RT CATARACT TIA History of Any Multi-Drug Resistant Organisms: None Reported Past Surgical History: Adenoidectomy, Cholecystectomy, Heart Catheterization With Stent, Tonsillectomy Additional Past Surgical History / Comment(s): D&C, carpal tunnel surgery left , LT ARM SX FOR "PINCHED NERVE", LT THUMB TRIGGER FINGER, rae neuroma removed left foot, heart cath 2015 , right ankle fx 01/2018 no surgery , LT CATARACT REMOVED WITH LENS IMPLANT thyroidectomy Past Anesthesia/Blood Transfusion Reactions: Previous Problems w/ Anesthesia, Motion Sickness Additional Past Anesthesia/Blood Transfusion Reaction / Comment(s): difficulty waking from anesthesia Date of Last Stent Placement:: 2022 Past Psychological History: Anxiety, Depression, Panic Disorder Smoking Status: Former smoker Past Alcohol Use History: None Reported Past Drug Use History: None Reported - Past Family History Father Family Medical History: Cancer Additional Family Medical History / Comment(s): skin Mother Family Medical History: Diabetes Mellitus, Hypertension, Osteoarthritis (OA) Additional Family Medical History / Comment(s): MURMUR Sister(s) Family Medical History: Cancer Additional Family Medical History / Comment(s): ovarian General Exam - General Exam Comments Initial Comments: PHYSICAL EXAM: General Impression: Alert and oriented x3, not in acute distress HEENT: Normocephalic atraumatic, extra-ocular movements intact, pupils equal and reactive to light bilaterally, mucous membranes moist. Cardiovascular: Heart regular rate and rhythm Chest: Able to complete full sentences, no retractions, no tachypnea, palpatory tenderness to the sternum Abdomen: abdomen soft, non-tender, non-distended, no organomegaly Musculoskeletal: Pulses present and equal in all extremities, no peripheral edema Motor: no focal deficits noted Neurological: CN II-XII grossly intact, no focal motor or sensory deficits noted Skin: Intact with no visualized rashes Psych: Normal affect and mood Limitations: no limitations Course Vital Signs 08/10/24 17:29 Temperature 99.6 F Pulse Rate 66 Respiratory 20 Rate Blood Pressure 153/93 O2 Sat by Pulse 98 Oximetry Medical Decision Making - Medical Decision Making Was pt. sent in by a medical professional or institution (, PA, BARREL FILLER, urgent care, hospital, or long-term...) When possible be specific @ -No Did you speak to anyone other than the patient for history (EMS, parent, family, police, friend...)? What history was obtained from this source @ -No Did you review nursing and triage notes (agree or disagree)? Why? @ -I reviewed and agree with nursing and triage notes Were old charts reviewed (outside hosp., previous admission, EMS record, old EKG, old radiological studies, urgent care reports/EKG's, long-term records)? Report findings @ -No old charts were reviewed Differential Diagnosis (chest pain, altered mental status, abdominal pain women, abdominal pain men, vaginal bleeding, musculoskeletal, weakness, fever, dyspnea, syncope, headache, dizziness, GI bleed, back pain, seizure, CVA, palpatations, mental health)? @ -Differential Chest Pain: Stable Angina, Unstable Angina, STEMI, NSTEMI Aortic Dissection, Pneumothorax, Musculoskeletal, Esophageal Spasm GERD, Cholecystitis, Pancreatitis, Zoster, this is not meant to be an all-inclusive list. EKG interpreted by me (3pts min.). @ -My EKG interpretation: Ventricular rate 106, sinus tachycardia,. 120, QRS 86, QTc 4 1. No SD prolongation, no QTC prolongation, no ST or T-wave changes noted. Overall, this EKG is unremarkable X-rays interpreted by me (1pt min.). @ -Chest x-ray shows no acute processes CT interpreted by me (1pt min.). @ -None done U/S interpreted by me (1pt. min.). @ -None done What testing was considered but not performed or refused? (CT, X-rays, U/S, labs)? Why? @ -None What meds were considered but not given or refused? Why? @ -None Was smoking cessation discussed for >3mins.? @ -No Were there social determinants of health that impacted care today? How? (Homelessness, low income, unemployed, alcoholism, drug addiction, transportation, low edu. Level, literacy, decrease access to med. care, fci, re hab)? @ -No Was there de-escalation of care discussed even if they declined (Discuss DNR or withdrawal of care, Hospice)? DNR status @ -No What co-morbidities impacted this encounter? (DM, HTN, Smoking, COPD, CAD, Cancer, CVA, ARF, Chemo, Hep., AIDS, mental health diagnosis, sleep apnea, morbid obesity)? @ -History of CABG Was patient admitted / discharged? Hospital course, mention meds given and route, prescriptions, significant lab abnormalities, going to OR and other pertinent info. @ -54-year-old female presents to the emergency department atypical chest pain. Vital signs upon arrival are within acceptable limits. Symptoms are clearly reproducible at the bedside with palpitation to the lower area. Furthermore she reports symptoms with twisting and deep inspiration. She does not report any high risk associated symptoms. Laboratory evaluation obtained. Labs are unremarkable. Troponin is negative. Patient given Lidoderm patch and analgesics. Patient discharged vies follow-up with primary care doctor. Did you discuss the management of the patient with other professionals (professionals i.e. , PA, BARREL FILLER, lab, RT, psych nurse, executive secretary social welfare, machine steak tenderizer, teacher, business development officer, therapeutic case manager)? Give summary @ -No Was critical care preformed (if so, how long)? @ -No Undiagnosed new problem with uncertain prognosis? @ -No Drug Therapy requiring intensive monitoring for toxicity (Heparin, Nitro, Insulin, Cardizem)? @ -No Were any procedures done? @ -No Diagnosis/symptom? Acute, or Chronic, or Acute on Chronic? Uncomplicated (without systemic symptoms) or Complicated (systemic symptoms)? @ -Atypical chest pain Side effects of treatment? @ -No Exacerbation, Progression, or Severe Exacerbation? @ -No Poses a threat to life or bodily function? How? (Chest pain, USA, ID, pneumonia, PE, COPD, DKA, ARF, appy, cholecystitis, CVA, Diverticulitis, Homicidal, Suicida l, threat to staff... and all critical care pts) @ -No - Lab Data Result diagrams: 08/10/24 17:49 08/10/24 17:49 Lab Results 08/10/24 08/10/24 08/10/24 Range/Units 17:49 17:49 17:49 WBC 7.5 (3.8-10.6) k/uL RBC 4.81 (3.80-5.40) m/uL Hgb 13.2 (11.4-16.0) gm/dL Hct 40.5 (34.0-46.0) % MCV 84.2 (80.0-100.0) fL MCH 27.4 (25.0-35.0) pg MCHC 32.5 (31.0-37.0) g/dL RDW 14.7 (11.5-15.5) % Plt Count 184 (150-450) k/uL MPV 7.3 Neutrophils % 69 % Lymphocytes % 20 % Monocytes % 6 % Eosinophils % 3 % Basophils % 0 % Neutrophils # 5.1 (1.3-7.7) k/uL Lymphocytes # 1.5 (1.0-4.8) k/uL Monocytes # 0.4 (0-1.0) k/uL Eosinophils # 0.2 (0-0.7) k/uL Basophils # 0.0 (0-0.2) k/uL PT 10.2 (10.0-12.5) sec INR 0.9 (<1.2) APTT 23.3 (22.0-30.0) sec Sodium 137 (137-145) mmol/L Potassium 4.6 (3.5-5.1) mmol/L Chloride 102 (98-107) mmol/L Carbon Dioxide 28 (22-30) mmol/L Anion Gap 7 mmol/L BUN 18 H (7-17) mg/dL Creatinine 0.85 (0.52-1.04) mg/dL Est GFR (CKD-EPI)AfAm 89 (>60 ml/min/1.73 sqM) Est GFR (CKD-EPI)NonAf 77 (>60 ml/min/1.73 sqM) Glucose 142 H (74-99) mg/dL Calcium 9.0 (8.4-10.2) mg/dL Magnesium 2.0 (1.6-2.3) mg/dL Total Bilirubin 0.5 (0.2-1.3) mg/dL AST 38 H (14-36) U/L ALT 37 H (4-34) U/L Alkaline Phosphatase 95 (38-126) U/L Troponin I (0.000-0.034) ng/mL NT-Pro-B Natriuret Pep 115 pg/mL Total Protein 7.8 (6.3-8.2) g/dL Albumin 4.4 (3.5-5.0) g/dL 08/10/24 Range/Units 18:11 WBC (3.8-10.6) k/uL RBC (3.80-5.40) m/uL Hgb (11.4-16.0) gm/dL Hct (34.0-46.0) % MCV (80.0-100.0) fL MCH (25.0-35.0) pg MCHC (31.0-37.0) g/dL RDW (11.5-15.5) % Plt Count (150-450) k/uL MPV Neutrophils % % Lymphocytes % % Monocytes % % Eosinophils % % Basophils % % Neutrophils # (1.3-7.7) k/uL Lymphocytes # (1.0-4.8) k/uL Monocytes # (0-1.0) k/uL Eosinophils # (0-0.7) k/uL Basophils # (0-0.2) k/uL PT (10.0-12.5) sec INR (<1.2) APTT (22.0-30.0) sec Sodium (137-145) mmol/L Potassium (3.5-5.1) mmol/L Chloride (98-107) mmol/L Carbon Dioxide (22-30) mmol/L Anion Gap mmol/L BUN (7-17) mg/dL Creatinine (0.52-1.04) mg/dL Est GFR (CKD-EPI)AfAm (>60 ml/min/1.73 sqM) Est GFR (CKD-EPI)NonAf (>60 ml/min/1.73 sqM) Glucose (74-99) mg/dL Calcium (8.4-10.2) mg/dL Magnesium (1.6-2.3) mg/dL Total Bilirubin (0.2-1.3) mg/dL AST (14-36) U/L ALT (4-34) U/L Alkaline Phosphatase (38-126) U/L Troponin I <0.012 (0.000-0.034) ng/mL NT-Pro-B Natriuret Pep pg/mL Total Protein (6.3-8.2) g/dL Albumin (3.5-5.0) g/dL Disposition Clinical Impression: Chest pain Disposition: HOME SELF-CARE Condition: Good Instructions (If sedation given, give patient instructions): Costochondritis (ED) Is patient prescribed a controlled substance at d/c from ED?: No Referrals: Cuca Iqbal MD [Primary Care Provider] - 1-2 days Time of Disposition: 19:41
[2024-08-10] MEDS: LIDOCAINE 4% PATCH TOPICAL ONE (20:02)
[2024-08-10 20:08] VITALS: BP 147/87; PULSE 103; RESP 14
[2024-08-10] MEDS: MORPHINE SULFATE 4 MG/ML SYRINGE IV STA (20:13)
[2024-08-10] MEDS: MORPHINE SULFATE 4 MG/ML SYRINGE IM STA (20:14)
== END 2024-08-10 20:19 | disposition home or self-care (01) ==
LOC: EC 17:12
DX: R07.89 Other chest pain (principal); Z86.73 Personal history of transient ischemic attack (TIA), and cerebral infarction without residual deficits; Z95.1 Presence of aortocoronary bypass graft; Z87.891 Personal history of nicotine dependence; Z88.5 Allergy status to narcotic agent; Z88.6 Allergy status to analgesic agent; Z88.8 Allergy status to other drugs, medicaments and biological substances; Z88.2 Allergy status to sulfonamides; Z88.0 Allergy status to penicillin; Z88.1 Allergy status to other antibiotic agents; Z91.041 Radiographic dye allergy status
CPT/HCPCS: 36415; 93005; 83880; 80053; 83735; 84484; 85025; 85610; 85730; 71046; 99285; 96372; J2270

== ENCOUNTER 2024-11-23 16:23 | Observation (INO) | payer OTHER ==
--- NOTE | 2024-11-23 16:56 | ED ---
Chest Pain HPI - General Chief Complaint: Chest Pain Stated Complaint: headache and weak Time Seen by Provider: 11/23/24 16:31 Source: patient Mode of arrival: ambulatory Limitations: no limitations - History of Present Illness Initial Comments: 54-year-old female with past medical history of COPD, diabetes, hypertension, coronary disease status post bypass who presents the emergency department reporting left shoulder and breast pain. States that the patient has not felt well as she has been trying to get over influenza. She just finished Tamiflu. States that she has been extremely fatigued. 20 minutes ago the patient developed pain in her chest and scapula. She felt short of breath. She does have extensive cardiac history to include bypass, valve replacement. She is anticoagulated on Eliquis. She does have associated nausea without vomiting. No ripping or tearing station to her back. No numbness, tingling or weakness in her extremities. No other alleviating, precipitating or modifying factors - Related Data Home Medications Medication Instructions Recorded Confirmed Montelukast [Singulair] 10 mg PO HS 04/16/17 11/23/24 PARoxetine HCL [Paxil] 40 mg PO DAILY 12/27/18 11/23/24 Empagliflozin [Jardiance] 10 mg PO DAILY 01/13/23 11/23/24 Insulin Glargine,Hum.rec.anlog 50 units SQ DAILY 01/13/23 11/23/24 [Lantus Solostar Pen] oxyCODONE-APAP 5-325MG [Percocet 1 tab PO TID PRN 01/13/23 11/23/24 5-325 mg] Diclofenac Sodium Gel [Voltaren 1% 1 applic TOPICAL BID PRN 01/14/24 11/23/24 Gel] Levothyroxine Sodium 150 mcg PO DAILY 01/14/24 11/23/24 metFORMIN HCL 1,000 mg PO BID-W/MEALS 01/14/24 11/23/24 Ferrous Sulfate [Iron (65 MG 325 mg PO DAILY 02/20/24 11/23/24 Elemental)] Amitriptyline HCl [Elavil] 25 mg PO HS 11/23/24 11/23/24 Losartan [Cozaar] 50 mg PO DAILY 11/23/24 11/23/24 Metoprolol Tartrate [Lopressor] 75 mg PO BID 11/23/24 11/23/24 Rivaroxaban [Xarelto] 20 mg PO W/SUPPER 11/23/24 11/23/24 Tirzepatide [Mounjaro] 5 mg SQ WE 11/23/24 11/23/24 Previous Rx's Medication Instructions Recorded Amiodarone [Cordarone] 200 mg PO Q48H #0 11/24/24 Aspirin 81 mg PO DAILY #30 tab 11/24/24 Allergies Allergy/AdvReac Type Severity Reaction Status Date / Time adhesive Allergy red skin Verified 11/23/24 19:55 ciprofloxacin [From Cipro] Allergy Itching Verified 11/23/24 19:55 hydroxyzine Allergy Itching Verified 11/23/24 19:55 Iodinated Contrast Media Allergy Itching Verified 11/23/24 19:55 [Iodinated Contrast Media - IV Dye] prednisone Allergy Rapid Verified 11/23/24 19:55 Heart Rate, Panic attack Sulfa (Sulfonamide Allergy Anaphylaxis Verified 11/23/24 19:55 Antibiotics) verapamil Allergy Anaphylaxis Verified 11/23/24 19:55 celecoxib [From Celebrex] AdvReac CAUSES GI Verified 11/23/24 19:55 BLEEDING cephalexin monohydrate AdvReac Vomiting Verified 11/23/24 19:55 [From Keflex] diphenhydramine AdvReac arm burned Verified 11/23/24 19:55 [From Benadryl] when given IV Penicillins AdvReac Anaphylaxis Verified 11/23/24 19:55 tramadol AdvReac Nausea & Verified 11/23/24 19:55 Vomiting Review of Systems ROS Statement: Those systems with pertinent positive or pertinent negative responses have been documented in the HPI. ROS Other: All systems not noted in ROS Statement are negative. Past Medical History Past Medical History: Asthma, Chest Pain / Angina, COPD, CVA/TIA, Diabetes Mellitus, Hyperlipidemia, Hypertension Additional Past Medical History / Comment(s): neuoropathy, RT CATARACT TIA History of Any Multi-Drug Resistant Organisms: None Reported Past Surgical History: Adenoidectomy, Cholecystectomy, Heart Catheterization With Stent, Tonsillectomy Additional Past Surgical History / Comment(s): D&C, carpal tunnel surgery left , LT ARM SX FOR "PINCHED NERVE", LT THUMB TRIGGER FINGER, rae neuroma removed left foot, heart cath 2015 , right ankle fx 01/2018 no surgery , LT CATARACT REMOVED WITH LENS IMPLANT thyroidectomy Past Anesthesia/Blood Transfusion Reactions: Previous Problems w/ Anesthesia, Motion Sickness Additional Past Anesthesia/Blood Transfusion Reaction / Comment(s): difficulty waking from anesthesia Date of Last Stent Placement:: 2022 Past Psychological History: Anxiety, Depression, Panic Disorder Smoking Status: Former smoker Past Alcohol Use History: None Reported Past Drug Use History: None Reported - Past Family History Father Family Medical History: Cancer Additional Family Medical History / Comment(s): skin Mother Family Medical History: Diabetes Mellitus, Hypertension, Osteoarthritis (OA) Additional Family Medical History / Comment(s): MURMUR Sister(s) Family Medical History: Cancer Additional Family Medical History / Comment(s): ovarian General Exam Limitations: no limitations General appearance: alert, in no apparent distress Head exam: Present: atraumatic, normocephalic, normal inspection Eye exam: Present: normal appearance, PERRL, EOMI. Absent: scleral icterus, conjunctival injection, periorbital swelling ENT exam: Present: normal exam, mucous membranes moist Neck exam: Present: normal inspection. Absent: tenderness, meningismus, lymphadenopathy Respiratory exam: Present: normal lung sounds bilaterally. Absent: respiratory distress, wheezes, rales, rhonchi, stridor Cardiovascular Exam: Present: regular rate, normal rhythm, normal heart sounds. Absent: systolic murmur, diastolic murmur, rubs, gallop, clicks GI/Abdominal exam: Present: soft, normal bowel sounds. Absent: distended, tenderness, guarding, rebound, rigid Extremities exam: Present: normal inspection, full ROM, normal capillary refill. Absent: tenderness, pedal edema, joint swelling, calf tenderness Back exam: Present: normal inspection Neurological exam: Present: alert, oriented X3, CN II-XII intact Psychiatric exam: Present: normal affect, normal mood Skin exam: Present: warm, dry, intact, normal color. Absent: rash Course Vital Signs 11/23/24 11/23/24 11/23/24 16:25 20:29 22:00 Temperature 97.6 F 99.5 F Pulse Rate 97 101 H Pulse Rate [ 101 H Right Supine Pulse Oximetery ] Respiratory 18 18 17 Rate Blood Pressure 141/86 100/70 Blood Pressure 111/76 [Right Arm Supine] O2 Sat by Pulse 99 100 97 Oximetry Chest Pain MDM - MDM Was pt. sent in by a medical professional or institution (LUANNE Retana, MEDICAL LAB TECHNOLOGIST, urgent care, hospital, or jail...) When possible be specific @ -No Did you speak to anyone other than the patient for history (EMS, parent, family, police, friend...)? What history was obtained from this source @ -No Did you review nursing and triage notes (agree or disagree)? Why? @ -I reviewed and agree with nursing and triage notes Were old charts reviewed (outside hosp., previous admission, EMS record, old EKG, old radiological studies, urgent care reports/EKG's, jail records)? Report findings @ -No old charts were reviewed Differential Diagnosis (chest pain, altered mental status, abdominal pain women, abdominal pain men, vaginal bleeding, weakness, fever, dyspnea, syncope, headache, dizziness, GI bleed, back pain, seizure, CVA, palpatations, mental health, musculoskeletal)? @ -Differential Chest Pain: Stable Angina, Unstable Angina, STEMI, NSTEMI Aortic Dissection, Pneumothorax, Musculoskeletal, Esophageal Spasm GERD, Cholecystitis, Pancreatitis, Zoster, this is not meant to be an all-inclusive list. EKG interpreted by me (3pts min.). @ -Yes and demonstrates sinus rhythm with rate of 94. [place] interval 162. QRS 90. QTc of 405. Q wave in lead III. No acute ST segment elevations X-rays interpreted by me (1pt min.). @ -Yes and demonstrates no acute process CT interpreted by me (1pt min.). @ -None done U/S interpreted by me (1pt. min.). @ -None done What testing was considered but not performed or refused? (CT, X-rays, U/S, labs)? Why? @ -None What meds were considered but not given or refused? Why? @ -None Did you discuss the management of the patient with other professionals (professionals i.e. LUANNE Retana, MEDICAL LAB TECHNOLOGIST, lab, RT, psych nurse, social services manager, office professionals, teacher, chief operating officer, upper caser)? Give summary @ -[address] [facility] for admission Was smoking cessation discussed for >3mins.? @ -No Was critical care preformed (if so, how long)? @ -No Were there social determinants of health that impacted care today? How? (Homelessness, low income, unemployed, alcoholism, drug addiction, transportation, low edu. Level, literacy, decrease access to med. care, custodial, rehab)? @ -No Was there de-escalation of care discussed even if they declined (Discuss DNR or withdrawal of care, Hospice)? DNR status @ -No What co-morbidities impacted this encounter? (DM, HTN, Smoking, COPD, CAD, Cancer, CVA, ARF, Chemo, Hep., AIDS, mental health diagnosis, sleep apnea, morbid obesity)? @ -History of coronary disease Was patient admitted / discharged? Hospital course, mention meds given and route, prescriptions, significant lab abnormalities, going to OR and other pertinent info. @ -Upon arrival patient seen and evaluated in bed 5. Thorough history and physical exam was performed. IV access was established. Patient placed on continuous pulse ox and cardiac monitoring. Twelve-lead EKG is obtained. Laboratory studies are conducted. Results are discussed with the patient. Laboratory studies are within normal limits however due to patient's significant cardiac history did recommend admission. She was agreeable to this. Spoke with Lizabeth from [facility] for the admission and cardiology will be placed on consult Undiagnosed new problem with uncertain prognosis? @ -No Drug Therapy requiring intensive monitoring for toxicity (Heparin, Nitro, Insulin, Cardizem)? @ -No Were any procedures done? @ -No Diagnosis/symptom? @ -Acute chest pain, history of atherosclerotic coronary artery disease Acute, or Chronic, or Acute on Chronic? @ -Acute Uncomplicated (without systemic symptoms) or Complicated (systemic symptoms)? @ -Complicated Side effects of treatment? @ -No Exacerbation, Progression, or Severe Exacerbation? @ -No Poses a threat to life or bodily function? How? (Chest pain, USA, [place], pneumonia, PE, COPD, DKA, ARF, appy, cholecystitis, CVA, Diverticulitis, Homicidal, Suicidal, threat to staff... and all critical care pts) @ -No Disposition Clinical Impression: Chest pain Disposition: ADMITTED IP TO THIS [facility] Condition: Stable Is patient prescribed a controlled substance at d/c from ED?: No Time of Disposition: 19:59 Decision to Admit Reason: Admit from EC Decision Date: 11/23/24 Decision Time: 19:59
[2024-11-23 17:29] LABS: Basophils # (A) 0.1 k/uL (0-0.2); Basophils % (A) 1 %; Eosinophils # (A) 0.2 k/uL (0-0.7); Eosinophils % (A) 2 %; HCT 46.4 % (34.0-46.0); HGB 14.9 gm/dL (11.4-16.0); Hypochromasia Slight; Lymphocytes # (A) 0.7 k/uL (1.0-4.8); Lymphocytes % (A) 6 %; MCH 26.8 pg (25.0-35.0); MCHC 32.2 g/dL (31.0-37.0); MCV 83.3 fL (80.0-100.0); Mean Platelet Volume 7.4; Monocytes # (A) 0.5 k/uL (0-1.0); Monocytes % (A) 4 %; Neutrophils # (A) 9.9 k/uL (1.3-7.7); Neutrophils % (A) 86 %; Platelet Count 180 k/uL (150-450); RBC 5.57 m/uL (3.80-5.40); RDW 15.8 % (11.5-15.5); WBC 11.5 k/uL (3.8-10.6)
[2024-11-23] MEDS: ONDANSETRON 4 MG/2 ML VIAL IVP STA (17:38)
[2024-11-23] MEDS: oxyCODONE-APAP 5-325MG 1 EACH TAB PO STA (17:38)
--- NOTE | 2024-11-23 18:09 | XR ---
EXAMINATION TYPE: XR chest 2V DATE OF EXAM: 11/23/2024 6:04 PM COMPARISON: Prior chest radiograph 08/10/2024. CLINICAL INDICATION: Female, 54 years old with history of Chest Pain; [facility] TECHNIQUE: XR chest 2V Frontal and lateral views of the chest. FINDINGS: Lungs/Pleura: There is no evidence of pleural effusion, focal consolidation, or pneumothorax. Pulmonary vascularity: Unremarkable. Heart/mediastinum: Mild cardiomegaly. Median sternotomy wires. Atrial appendage occlusion device note d. Previous aortic valve replacement. Musculoskeletal: No acute osseous pathology. Other findings: None IMPRESSION: No acute cardiopulmonary disease/process. [facility], , 11/23/2024 6:06 PM
[2024-11-23 18:11] LABS: Partial Thromboplastin Time 22.7 sec (22.0-30.0); Prothrombin Time 11.3 sec (10.0-12.5)
[2024-11-23 18:33] LABS: ALT 29 U/L (4-34); AST 37 U/L (14-36); African American GFR (CKD) 79 (>60 ml/min/1.73 sqM); Alkaline Phosphatase 68 U/L (38-126); Anion Gap 10 mmol/L; Blood Urea Nitrogen 18 mg/dL (7-17); Calcium 8.6 mg/dL (8.4-10.2); Carbon Dioxide 25 mmol/L (22-30); Chloride 100 mmol/L (98-107); Glucose 166 mg/dL (74-99); Lipase 381 U/L (23-300); Magnesium 1.7 mg/dL (1.6-2.3); Non-African American GFR(CKD) 68 (>60 ml/min/1.73 sqM); Potassium 4.6 mmol/L (3.5-5.1); Sodium 135 mmol/L (137-145); Total Bilirubin 0.7 mg/dL (0.2-1.3); Total Protein 7.3 g/dL (6.3-8.2)
[2024-11-23 18:42] LABS: NT-Pro-B-Type Natriuretic Pept 112 pg/mL
[2024-11-23] MEDS ORDERED: NALOXONE 0.4 MG/ML 1 ML VIAL IV PRN (19:59)
[2024-11-23 22:27] LABS: Glucose,Whole Blood 155 mg/dL (70-110)
[2024-11-24 01:38] LABS: African American GFR (CKD) 66 (>60 ml/min/1.73 sqM); Anion Gap 12 mmol/L; Blood Urea Nitrogen 21 mg/dL (7-17); Calcium 8.3 mg/dL (8.4-10.2); Carbon Dioxide 22 mmol/L (22-30); Chloride 99 mmol/L (98-107); Glucose 147 mg/dL (74-99); Non-African American GFR(CKD) 58 (>60 ml/min/1.73 sqM); Potassium 4.2 mmol/L (3.5-5.1); Sodium 133 mmol/L (137-145)
[2024-11-24 02:08] LABS: Basophils % (A) 0 %; Eosinophils # (A) 0.2 k/uL (0-0.7); Eosinophils % (A) 3 %; HCT 42.8 % (34.0-46.0); HGB 13.6 gm/dL (11.4-16.0); Hypochromasia Slight; Lymphocytes # (A) 0.7 k/uL (1.0-4.8); Lymphocytes % (A) 9 %; MCH 26.6 pg (25.0-35.0); MCHC 31.7 g/dL (31.0-37.0); Mean Platelet Volume 7.1; Monocytes # (A) 0.3 k/uL (0-1.0); Monocytes % (A) 4 %; Neutrophils # (A) 6.4 k/uL (1.3-7.7); Neutrophils % (A) 83 %; Platelet Count 122 k/uL (150-450); RDW 15.8 % (11.5-15.5); WBC 7.7 k/uL (3.8-10.6)
[2024-11-24 07:22] VITALS: BP 102/69; PULSE 116; RESP 18; TEMP 98.5
[2024-11-24] MEDS: AMIODARONE 200 MG TAB PO SCH (08:49)
[2024-11-24] MEDS: METOPROLOL TARTRATE 50 MG TAB PO SCH (08:50)
[2024-11-24] MEDS: DAPAGLIFLOZIN PROPANEDIOL 5 MG TABLET PO SCH (08:50)
[2024-11-24] MEDS: ASPIRIN 81 MG PO SCH (08:50)
[2024-11-24] MEDS: LOSARTAN 50 MG TAB PO SCH (08:50)
[2024-11-24] MEDS ORDERED: AMIODARONE 200 MG TAB PO SCH (09:00)
--- NOTE | 2024-11-24 09:28 | P.CRDCN ---
History of Present Illness Consult date: 11/24/24 Consult reason: chest pain History of present illness: This is a 54-year-old female patient of Dr. STUART Beck with past medical history of hypertension, dyslipidemia, diabetes, family history of premature coronary artery disease status post single-vessel LOGAN to LAD in May 2024, history of bicuspid aortic valve status post aortic valve replacement, atrial fibrillation, remote history of tobacco use. We have been asked to evaluate the patient for chest pain. Patient states that she was laying down and not feeling well. She has recently been diagnosed with influenza and finished Tamiflu last week. Apparently her blood sugars were elevated as well. She started having left shoulder burning type sensation and this also went into the shoulder blade area with shortness of breath. She denies epigastric or right upper quadrant abdominal discomfort. Chest pain is improved at this time. She is still feeling cold and sweaty this morning. Blood pressure 102/69, heart rate 116, pulse ox 95% on room air. -EKG: Sinus rhythm with no acute ST-T wave changes. -Chest x-ray: No acute process. -Laboratory studies: Troponin negative x 3. BUN 21 creatinine 1.08, lipase 381. Sodium 133, potassium 4.2, initial WBC 11.5 and repeat 7.7, hemoglobin 13.6. -Home cardiac medications: Amiodarone 200 mg daily, Jardiance 10 mg daily, losartan 50 mg daily, metoprolol tartrate 75 mg twice daily, Xarelto 20 mg with supper, patient is also on levothyroxine and Mounjaro. -CV surgery 05/30/2024: One-vessel CABG LOGAN to LAD and tissue AVR. -Cardiac catheterization performed 10/06/2023 revealed moderate , widely patent mid LAD at the previously stented portion, no significant disease of the LM, RCA or circumflex. - Review Of Systems: At the time of my exam: CONSTITUTIONAL: Denies fever or chills. Reports fatigue. HEENT: Denies blurred vision, vision changes, or eye pain. Denies hemoptysis CARDIOVASCULAR: Denies chest pain. Denies orthopnea. Denies PND. Denies palpitations RESPIRATORY: Denies shortness of breath. GASTROINTESTINAL: Denies abdominal pain. Denies nausea or vomiting. HEMATOLOGIC: Denies bleeding disorders. GENITOURINARY: Denies any blood in urine. SKIN: Denies puritis. Denies rash. Physical examination: Gen: This is a 54-year-old female in no acute distress VS: reviewed HEENT: Head is atraumatic, normocephalic. Pupils equal, round. Sclerae is anicteric. NECK: Supple. No JVD. LUNGS: Clear to auscultation. No wheezes or rhonchi. No intercostal retractions. HEART: Regular rate and rhythm. Systolic murmur. ABDOMEN: Soft No tenderness. EXTREMITIES: No pedal edema. No calf tenderness. NEUROLOGICAL: Patient is awake, alert and oriented x3. Assessment: Atypical chest pain, acute coronary syndrome ruled out Recent influenza infection History of coronary artery disease with previous stent followed by DESMOND to BONI in May 2024 Bicuspid aortic valve status post tissue AVR May 2024 Paroxysmal atrial fibrillation, currently in sinus rhythm Diabetes mellitus type 2 Hypertension Dyslipidemia Plan: Resume patient's home cardiac medications with the following changes Add aspirin 81 mg daily Change amiodarone 200 mg to frequency of every other day No other cardiac workup at this time Patient is cleared for discharge and may follow-up in the office with Dr. STUART Beck in 1 to 2 weeks. Thank you kindly for this consultation. Nurse practitioner note has been reviewed, I agree with documented findings and plan of care. Patient was seen and examined. Past Medical History Past Medical History: Asthma, Chest Pain / Angina, COPD, CVA/TIA, Diabetes Mellitus, Hyperlipidemia, Hypertension Additional Past Medical History / Comment(s): neuoropathy, RT CATARACT TIA History of Any Multi-Drug Resistant Organisms: None Reported Past Surgical History: Adenoidectomy, Cholecystectomy, Heart Catheterization With Stent, Tonsillectomy Additional Past Surgical History / Comment(s): D&C, carpal tunnel surgery left , LT ARM SX FOR "PINCHED NERVE", LT THUMB TRIGGER FINGER, rae neuroma removed left foot, heart cath 2015 , right ankle fx 01/2018 no surgery , LT CATARACT REMOVED WITH LENS IMPLANT thyroidectomy Past Anesthesia/Blood Transfusion Reactions: Previous Problems w/ Anesthesia, Motion Sickness Additional Past Anesthesia/Blood Transfusion Reaction / Comment(s): difficulty waking from anesthesia Date of Last Stent Placement:: 2022 Past Psychological History: Anxiety, Depression, Panic Disorder Additional Psychological History / Comment(s): niece is her home health care case manager. Smoking Status: Former smoker Past Alcohol Use History: None Reported Additional Past Alcohol Use History / Comment(s): Patient started smoking at age 13 one half pack per day and quit around 1991 Past Drug Use History: None Reported Additional Drug Use History / Comment(s): . - Past Family History Father Family Medical History: Cancer Additional Family Medical History / Comment(s): skin Mother Family Medical History: Diabetes Mellitus, Hypertension, Osteoarthritis (OA) Additional Family Medical History / Comment(s): MURMUR Sister(s) Family Medical History: Cancer Additional Family Medical History / Comment(s): ovarian Medications and Allergies Home Medications Medication Instructions Recorded Confirmed Type Montelukast [Singulair] 10 mg PO HS 04/16/17 11/23/24 History PARoxetine HCL [Paxil] 40 mg PO DAILY 12/27/18 11/23/24 History Empagliflozin [Jardiance] 10 mg PO DAILY 01/13/23 11/23/24 History Insulin Glargine,Hum.rec.anlog 50 units SQ DAILY 01/13/23 11/23/24 History [Lantus Solostar Pen] oxyCODONE-APAP 5-325MG [Percocet 1 tab PO TID PRN 01/13/23 11/23/24 History 5-325 mg] Diclofenac Sodium Gel [Voltaren 1% 1 applic TOPICAL BID PRN 01/14/24 11/23/24 History Gel] Levothyroxine Sodium 150 mcg PO DAILY 01/14/24 11/23/24 History metFORMIN HCL 1,000 mg PO BID-W/MEALS 01/14/24 11/23/24 History Ferrous Sulfate [Iron (65 MG 325 mg PO DAILY 02/20/24 11/23/24 History Elemental)] Amiodarone [Cordarone] 200 mg PO DAILY 11/23/24 11/23/24 History Amitriptyline HCl [Elavil] 25 mg PO HS 11/23/24 11/23/24 History Losartan [Cozaar] 50 mg PO DAILY 11/23/24 11/23/24 History Metoprolol Tartrate [Lopressor] 75 mg PO BID 11/23/24 11/23/24 History Rivaroxaban [Xarelto] 20 mg PO W/SUPPER 11/23/24 11/23/24 History Tirzepatide [Mounjaro] 5 mg SQ WE 11/23/24 11/23/24 History Allergies Allergy/AdvReac Type Severity Reaction Status Date / Time adhesive Allergy red skin Verified 11/23/24 19:55 ciprofloxacin [From Cipro] Allergy Itching Verified 11/23/24 19:55 hydroxyzine Allergy Itching Verified 11/23/24 19:55 Iodinated Contrast Media Allergy Itching Verified 11/23/24 19:55 [Iodinated Contrast Media - IV Dye] prednisone Allergy Rapid Verified 11/23/24 19:55 Heart Rate, Panic attack Sulfa (Sulfonamide Allergy Anaphylaxis Verified 11/23/24 19:55 Antibiotics) verapamil Allergy Anaphylaxis Verified 11/23/24 19:55 celecoxib [From Celebrex] AdvReac CAUSES GI Verified 11/23/24 19:55 BLEEDING cephalexin monohydrate AdvReac Vomiting Verified 11/23/24 19:55 [From Keflex] diphenhydramine AdvReac arm burned Verified 11/23/24 19:55 [From Benadryl] when given IV Penicillins AdvReac Anaphylaxis Verified 11/23/24 19:55 tramadol AdvReac Nausea & Verified 11/23/24 19:55 Vomiting Physical Exam Vitals: Vital Signs Temp Pulse Pulse Resp BP BP Pulse Ox 11/24/24 07:00 98.5 F 116 H 18 102/69 95 11/24/24 01:53 98.2 F 100 16 99/65 93 L 11/23/24 22:00 99.5 F 101 H 17 111/76 97 11/23/24 20:29 101 H 18 100/70 100 11/23/24 16:25 97.6 F 97 18 141/86 99 Intake and Output 11/23/24 11/24/24 11/24/24 22:59 06:59 14:59 Other: Voiding Method Toilet # Voids 1 2 Weight 99.79 kg Results 11/24/24 00:47 11/24/24 00:47 Cardiac Enzymes 11/23/24 11/23/24 11/23/24 Range/Units 17:20 18:15 20:56 AST 37 H (14-36) U/L Troponin I 0.017 <0.012 (0.000-0.034) ng/mL 11/24/24 Range/Units 00:43 AST (14-36) U/L Troponin I <0.012 (0.000-0.034) ng/mL Coagulation 11/23/24 Range/Units 17:20 PT 11.3 (10.0-12.5) sec APTT 22.7 (22.0-30.0) sec CBC 11/23/24 11/24/24 Range/Units 17:20 00:47 WBC 11.5 H 7.7 (3.8-10.6) k/uL RBC 5.57 H 5.10 (3.80-5.40) m/uL Hgb 14.9 13.6 (11.4-16.0) gm/dL Hct 46.4 H 42.8 (34.0-46.0) % Plt Count 180 122 L (150-450) k/uL Comprehensive Metabolic Panel 11/23/24 11/24/24 Range/Units 18:15 00:47 Sodium 135 L 133 L (137-145) mmol/L Potassium 4.6 4.2 (3.5-5.1) mmol/L Chloride 100 99 (98-107) mmol/L Carbon Dioxide 25 22 (22-30) mmol/L BUN 18 H 21 H (7-17) mg/dL Creatinine 0.94 1.08 H (0.52-1.04) mg/dL Glucose 166 H 147 H (74-99) mg/dL Calcium 8.6 8.3 L (8.4-10.2) mg/dL AST 37 H (14-36) U/L ALT 29 (4-34) U/L Alkaline Phosphatase 68 (38-126) U/L Total Protein 7.3 (6.3-8.2) g/dL Albumin 4.0 (3.5-5.0) g/dL Current Medications Generic Name Dose Route Start Last Admin Trade Name Freq PRN Reason Stop Dose Admin Naloxone HCl 0.2 mg 11/23/24 19:59 Naloxone 0.4 Mg/Ml 1 Ml Vial IV Q2M PRN Opioid Reversal Intake and Output 11/23/24 11/24/24 11/24/24 22:59 06:59 14:59 Other: Voiding Method Toilet # Voids 1 2 Weight 99.79 kg 11/24/24 00:47 11/24/24 00:47
[2024-11-24 12:33] LABS: Glucose,Whole Blood 150 mg/dL (70-110)
--- NOTE | 2024-11-24 13:37 | HP ---
HISTORY AND PHYSICAL This is a combined history and physical and discharge summary. CHIEF COMPLAINT: Chest pain. HISTORY OF PRESENT ILLNESS: This is a 54-year-old woman with a past medical history of multiple medical problems including COPD, CVA, TIA, complaining of chest and back pain. The patient was admitted to the hospital and initial evaluation was negative for cardiac workup and Cardiology saw the patient, recommended outpatient followup. There is no history of any fever, rigors, or chills at this time. PAST MEDICAL HISTORY: Reviewed include asthma, COPD. Rest of the history and rest of the chart are also reviewed. HOME MEDICATIONS: Reviewed include Lantus, dose and rest of medications reviewed. ALLERGIES: Reviewed include adhesives. Rest of allergies noted. FAMILY HISTORY: History of skin cancer. SOCIAL HISTORY: Previous history of smoking. REVIEW OF SYSTEMS: Fourteen-point review of systems is negative except as mentioned earlier. PHYSICAL EXAMINATION: VITAL SIGNS: Pulse 116, blood pressure 108/69, respirations 18. HEENT: Conjunctivae normal. NECK: No JVD. CARDIOVASCULAR: S1, S2. RESPIRATIONS: Breath sounds diminished at the bases. ABDOMEN: Soft, nontender. LEGS: No edema. NERVOUS SYSTEM: No focal deficits. LABORATORY DATA: Noted. EKG shows nonspecific ST-T changes and non-progression of R-waves. ASSESSMENT: 1. Chest pain, possible unstable angina. 2. Chronic obstructive pulmonary disease, asthma. 3. Cerebrovascular accident, transient ischemic attack. 4. Diabetes mellitus type 2. 5. Hypertension. 6. Hyperlipidemia. 7. Multiple complex medical issues including coronary artery disease stent. RECOMMENDATIONS AND DISCUSSION: This is a 54-year-old woman, who presented with multiple complex medical issues. Recommend to continue the current medications. Cardiology recommended the patient be discharged. I would recommend to resume the home medications and recommend close followup with Cardiology and as well as Primary Physician in the outpatient setting. Please refer to the medication reconciliation sheet for list of medications. Add aspirin 81 mg p.o. daily. Change amiodarone to 200 mg every other day. Possible outpatient stress test. MMODL / IJN: [id number] /
[2024-11-24] MEDS ORDERED: RIVAROXABAN 20 MG TAB PO SCH (17:30)
--- NOTE | 2024-11-27 14:12 | P.DS ---
Providers Date of admission: 11/23/24 20:01 Expected date of discharge: 11/24/24 Attending physician: Ciro Flores Consults: 11/23/24 19:59 Consult Physician Urgent Consulting Provider: [facility] Consult Reason/Comments: acute chest pain, hx ascad Do you want consulting provider notified?: Yes Primary care physician: Cuca Iqbal Hospital Course: Final diagnosis Chest pain, possible unstable angina Chronic obstructive pulmonary disease/asthma, not in exacerbation History of CVA/TIA History of coronary artery disease with previous stenting Diabetes mellitus, type II uncontrolled with hyperglycemia Hypertension Hyperlipidemia Obesity with a BMI 37.8 Discharge disposition Patient is being discharged in a stable condition with guarded prognosis to home . Patient will follow-up with Dr. Yusuf Flores in the outpatient setting upon discharge. Patient is to continue with current medications and outpatient follow-up with cardiology as scheduled. Total time taken is greater than 35 minutes. Hospital course This is a 54-year-old female who was recently admitted with chest pain, negative troponins and evaluated by cardiology. Medications adjusted recommending outpatient follow-up on discharge. Patient reports to feeling improved and would like to go home. Patient has been cleared by cardiology for discharge. Please refer to cardiology note for further HPI. Currently no reports of chest pain, shortness of breath, or palpitations. Patient is afebrile. No reports of nausea or vomiting and patient is tolerating diet. Patient will be discharged home today. Guarded prognosis and high risk for readmission given significant comorbidities Physical exam: Gen: This is a 54-year-old female who is awake, alert and oriented x 3, well-developed, appears older than stated age, obese HEENT: Head is atraumatic, normocephalic. Pupils equal, round. Sclerae is anicteric. NECK: Supple. No JVD. No lymphadenopathy. No thyromegaly. LUNGS: Diminished breath sounds bilaterally otherwise clear to auscultation. No wheezes or rhonchi. No intercostal retractions. HEART: S1, S2 are muffled ABDOMEN: Soft. Obese bowel sounds are present. No masses. No tenderness. EXTREMITIES: No pedal edema. No calf tenderness. NEUROLOGICAL: Patient is awake, alert and oriented x3. Cranial nerves 2 through 12 are grossly intact. Please refer to medication reconciliation sheet for a list of medications. The impression and plan of care has been dictated by Cara Kassidy, Nurse Practitioner as directed. Dr. Mark MD I have performed a history and examination and MDM of this patient, discussed the same with the dictator, and agree with the dictator's assessment and plan as written ,documented as a scribe. Based on total visit time, I have performed more than 50% of the visit. Patient Condition at Discharge: Stable Plan - Discharge Summary New Discharge Prescriptions: New Aspirin 81 mg PO DAILY #30 tab Continue Montelukast [Singulair] 10 mg PO HS PARoxetine HCL [Paxil] 40 mg PO DAILY Insulin Glargine,Hum.rec.anlog [Lantus Solostar Pen] 50 units SQ DAILY oxyCODONE-APAP 5-325MG [Percocet 5-325 mg] 1 tab PO TID PRN PRN Reason: Pain metFORMIN HCL 1,000 mg PO BID-W/MEALS Amitriptyline HCl [Elavil] 25 mg PO HS Losartan [Cozaar] 50 mg PO DAILY Rivaroxaban [Xarelto] 20 mg PO W/SUPPER Empagliflozin [Jardiance] 10 mg PO DAILY Levothyroxine Sodium 150 mcg PO DAILY Diclofenac Sodium Gel [Voltaren 1% Gel] 1 applic TOPICAL BID PRN PRN Reason: Pain Ferrous Sulfate [Iron (65 MG Elemental)] 325 mg PO DAILY Metoprolol Tartrate [Lopressor] 75 mg PO BID Tirzepatide [Mounjaro] 5 mg SQ WE Changed Amiodarone [Cordarone] 200 mg PO Q48H #0 Discharge Medication List Montelukast [Singulair] 10 mg PO HS 04/16/17 [History] PARoxetine HCL [Paxil] 40 mg PO DAILY 12/27/18 [History] Empagliflozin [Jardiance] 10 mg PO DAILY 01/13/23 [History] Insulin Glargine,Hum.rec.anlog [Lantus Solostar Pen] 50 units SQ DAILY 01/13/23 [History] oxyCODONE-APAP 5-325MG [Percocet 5-325 mg] 1 tab PO TID PRN 01/13/23 [History] Diclofenac Sodium Gel [Voltaren 1% Gel] 1 applic TOPICAL BID PRN 01/14/24 [History] Levothyroxine Sodium 150 mcg PO DAILY 01/14/24 [History] metFORMIN HCL 1,000 mg PO BID-W/MEALS 01/14/24 [History] Ferrous Sulfate [Iron (65 MG Elemental)] 325 mg PO DAILY 02/20/24 [History] Amitriptyline HCl [Elavil] 25 mg PO HS 11/23/24 [History] Losartan [Cozaar] 50 mg PO DAILY 11/23/24 [History] Metoprolol Tartrate [Lopressor] 75 mg PO BID 11/23/24 [History] Rivaroxaban [Xarelto] 20 mg PO W/SUPPER 11/23/24 [History] Tirzepatide [Mounjaro] 5 mg SQ WE 11/23/24 [History] Amiodarone [Cordarone] 200 mg PO Q48H #0 11/24/24 [Rx] Aspirin 81 mg PO DAILY #30 tab 11/24/24 [Rx] Follow up Appointment(s)/Referral(s): Reilly Beck MD [STAFF PHYSICIAN] - 12/05/24 9:15 am Cuca Iqbal MD [Primary Care Provider] - 1-2 days Ambulatory/Diagnostic Orders: Comprehensive Metabolic Panel [LAB.AMB] Time Frame: 3 Days, Location: None Selected Patient Instructions/Handouts: Chest Pain (DC) Activity/Diet/Wound Care/Special Instructions: Activity limited until follow-up Follow-up with primary care provider on discharge Follow-up with cardiology outpatient Continue taking medications as prescribed Discharge Disposition: HOME SELF-CARE
== END 2024-11-24 13:46 | disposition home or self-care (01) ==
LOC: EC 16:23 → 6NMEDSUR 20:01
PROVIDERS: ADMIT Hospitalist; ATTEND Hospitalist
DX: R07.89 Other chest pain (principal); J44.0 Chronic obstructive pulmonary disease with (acute) lower respiratory infection; E66.9 Obesity, unspecified; E78.5 Hyperlipidemia, unspecified; I10 Essential (primary) hypertension; I25.10 Atherosclerotic heart disease of native coronary artery without angina pectoris; I48.0 Paroxysmal atrial fibrillation; Z79.01 Long term (current) use of anticoagulants; Z79.4 Long term (current) use of insulin; Z79.82 Long term (current) use of aspirin; Z79.84 Long term (current) use of oral hypoglycemic drugs; Z79.890 Hormone replacement therapy; Z79.899 Other long term (current) drug therapy; Z95.1 Presence of aortocoronary bypass graft; Z95.2 Presence of prosthetic heart valve; Z95.5 Presence of coronary angioplasty implant and graft; Z86.73 Personal history of transient ischemic attack (TIA), and cerebral infarction without residual deficits; Z87.891 Personal history of nicotine dependence; Z88.1 Allergy status to other antibiotic agents; Z88.8 Allergy status to other drugs, medicaments and biological substances; Z88.2 Allergy status to sulfonamides; Z88.5 Allergy status to narcotic agent; Z88.0 Allergy status to penicillin; Z91.041 Radiographic dye allergy status; Z68.37 Body mass index [BMI] 37.0-37.9, adult
CPT/HCPCS: 96374; 99285; 36415; 93005; 83880; 80053; 80048; 83690; 83735; 84484 ×2; 85025 ×2; 85610; 85730; 71046; G0378 ×2; J2405

== ENCOUNTER 2025-01-08 18:30 | Emergency (ER) | payer OTHER ==
--- NOTE | 2025-01-08 19:24 | ED ---
General Adult HPI - General Chief complaint: Recheck/Abnormal Lab/Rx Stated complaint: cold chills, nausea Time Seen by Provider: 01/08/25 18:42 Source: patient, RN notes reviewed Mode of arrival: ambulatory Limitations: no limitations - History of Present Illness Onset/Timin -: days(s) Location: abdomen Radiation: flank Severity scale (1-10): 6 Quality: stabbing Consistency: intermittent Associated Symptoms: confusion, diaphoresis, fever/chills, nausea/vomiting - Related Data Home Medications Medication Instructions Recorded Confirmed Montelukast [Singulair] 10 mg PO HS 04/16/17 11/23/24 PARoxetine HCL [Paxil] 40 mg PO DAILY 12/27/18 11/23/24 Empagliflozin [Jardiance] 10 mg PO DAILY 01/13/23 11/23/24 Insulin Glargine,Hum.rec.anlog 50 units SQ DAILY 01/13/23 11/23/24 [Lantus Solostar Pen] oxyCODONE-APAP 5-325MG [Percocet 1 tab PO TID PRN 01/13/23 11/23/24 5-325 mg] Diclofenac Sodium Gel [Voltaren 1% 1 applic TOPICAL BID PRN 01/14/24 11/23/24 Gel] Levothyroxine Sodium 150 mcg PO DAILY 01/14/24 11/23/24 metFORMIN HCL 1,000 mg PO BID-W/MEALS 01/14/24 11/23/24 Ferrous Sulfate [Iron (65 MG 325 mg PO DAILY 02/20/24 11/23/24 Elemental)] Amitriptyline HCl [Elavil] 25 mg PO HS 11/23/24 11/23/24 Losartan [Cozaar] 50 mg PO DAILY 11/23/24 11/23/24 Metoprolol Tartrate [Lopressor] 75 mg PO BID 11/23/24 11/23/24 Rivaroxaban [Xarelto] 20 mg PO W/SUPPER 11/23/24 11/23/24 Tirzepatide [Mounjaro] 5 mg SQ WE 11/23/24 11/23/24 Previous Rx's Medication Instructions Recorded Amiodarone [Cordarone] 200 mg PO Q48H #0 11/24/24 Aspirin 81 mg PO DAILY #30 tab 11/24/24 Nitrofurantoin Monohyd/M-Cryst 100 mg PO BID #10 cap 01/08/25 [Nitrofurantoin Monohyd/M-Cryst 100 mg] Allergies Allergy/AdvReac Type Severity Reaction Status Date / Time adhesive Allergy red skin Verified 01/08/25 18:44 ciprofloxacin [From Cipro] Allergy Itching Verified 01/08/25 18:44 hydroxyzine Allergy Itching Verified 01/08/25 18:44 Iodinated Contrast Media Allergy Itching Verified 01/08/25 18:44 [Iodinated Contrast Media - IV Dye] prednisone Allergy Rapid Verified 01/08/25 18:44 Heart Rate, Panic attack Sulfa (Sulfonamide Allergy Anaphylaxis Verified 01/08/25 18:44 Antibiotics) verapamil Allergy Anaphylaxis Verified 01/08/25 18:44 celecoxib [From Celebrex] AdvReac CAUSES GI Verified 01/08/25 18:44 BLEEDING cephalexin monohydrate AdvReac Vomiting Verified 01/08/25 18:44 [From Keflex] diphenhydramine AdvReac arm burned Verified 01/08/25 18:44 [From Benadryl] when given IV Penicillins AdvReac Anaphylaxis Verified 01/08/25 18:44 tramadol AdvReac Nausea & Verified 01/08/25 18:44 Vomiting Review of Systems ROS Statement: Those systems with pertinent positive or pertinent negative responses have been documented in the HPI. ROS Other: All systems not noted in ROS Statement are negative. Past Medical History Past Medical History: Asthma, Chest Pain / Angina, COPD, CVA/TIA, Diabetes Mellitus, Hyperlipidemia, Hypertension Additional Past Medical History / Comment(s): neuoropathy, RT CATARACT TIA History of Any Multi-Drug Resistant Organisms: None Reported Past Surgical History: Adenoidectomy, Cholecystectomy, Heart Catheterization With Stent, Tonsillectomy Additional Past Surgical History / Comment(s): D&C, carpal tunnel surgery left , LT ARM SX FOR "PINCHED NERVE", LT THUMB TRIGGER FINGER, rae neuroma removed left foot, heart cath 2015 , right ankle fx 01/2018 no surgery , LT CATARACT REMOVED WITH LENS IMPLANT thyroidectomy Past Anesthesia/Blood Transfusion Reactions: Previous Problems w/ Anesthesia, Motion Sickness Additional Past Anesthesia/Blood Transfusion Reaction / Comment(s): difficulty waking from anesthesia Date of Last Stent Placement:: 2022 Past Psychological History: Anxiety, Depression, Panic Disorder Smoking Status: Former smoker Past Alcohol Use History: None Reported Past Drug Use History: None Reported - Past Family History Father Family Medical History: Cancer Additional Family Medical History / Comment(s): skin Mother Family Medical History: Diabetes Mellitus, Hypertension, Osteoarthritis (OA) Additional Family Medical History / Comment(s): MURMUR Sister(s) Family Medical History: Cancer Additional Family Medical History / Comment(s): ovarian General Exam Limitations: no limitations General appearance: alert, in no apparent distress Head exam: Present: atraumatic, normocephalic, normal inspection Eye exam: Present: normal appearance, PERRL, EOMI. Absent: scleral icterus, conjunctival injection, periorbital swelling ENT exam: Present: normal exam, mucous membranes moist Neck exam: Present: normal inspection. Absent: tenderness, meningismus, lymphadenopathy Respiratory exam: Present: normal lung sounds bilaterally. Absent: respiratory distress, wheezes, rales, rhonchi, stridor, accessory muscle use, decreased breath sounds, prolonged expiratory Cardiovascular Exam: Present: regular rate, normal rhythm, normal heart sounds. Absent: systolic murmur, diastolic murmur, rubs, gallop, clicks GI/Abdominal exam: Present: soft, tenderness (Positive LUQ and LLQ tenderness, positive left flank and adnexal tenderness. Positive tympanic tenderness on left side of abdomen), normal bowel sounds. Absent: distended, guarding, rebound, rigid, mass, hernia Extremities exam: Present: normal inspection, full ROM, normal capillary refill. Absent: tenderness, pedal edema, joint swelling, calf tenderness Back exam: Present: normal inspection Neurological exam: Present: alert, oriented X3, CN II-XII intact Psychiatric exam: Present: normal affect, normal mood Skin exam: Present: warm, dry, intact, normal color. Absent: rash Course Vital Signs 01/08/25 18:41 Temperature 98.8 F Pulse Rate 88 Respiratory 20 Rate Blood Pressure 144/86 O2 Sat by Pulse 99 Oximetry Medical Decision Making - Medical Decision Making Was pt. sent in by a medical professional or institution (, PA, SSIS ETL DEVELOPER, urgent care, hospital, or correction...) When possible be specific @ -[No] Did you speak to anyone other than the patient for history (EMS, parent, family, police, friend...)? What history was obtained from this source @ -[No] Did you review nursing and triage notes (agree or disagree)? Why? @ -[I reviewed and agree with nursing and triage notes] Were old charts reviewed (outside hosp., previous admission, EMS record, old EK G, old radiological studies, urgent care reports/EKG's, correction records)? Report findings @ -[No old charts were reviewed] Differential Diagnosis (chest pain, altered mental status, abdominal pain women, abdominal pain men, vaginal bleeding, weakness, fever, dyspnea, syncope, headache, dizziness, GI bleed, back pain, seizure, CVA, palpatations, mental health, musculoskeletal)? @ -Differential Abdominal Pain Women: Appendicitis, Cholecystitis, diverticulosis, ischemic bowel, pancreatitis, hepatitis, UTI, gastroenteritis, AAA, incarcerated hernia, bowel obstruction, constipation, inflammatory bowel, hepatitis, peptic ulcer disease, splenic infarction, perforated viscus, vulvitis, ovarian torsion, PID, kidney stone, placenta abruption, this is not meant to be an all-inclusive list EKG interpreted by me (3pts min.). @ -Sinus rhythm without ST deviation or T wave inversion. Ventricular rate 83 bpm, ROBERTO 159 ms, QRS 88 ms, QTc 419 ms. X-rays interpreted by me (1pt min.). @ -[None done] CT interpreted by me (1pt min.). @ -[None done] U/S interpreted by me (1pt. min.). @ -[None done] What testing was considered but not performed or refused? (CT, X-rays, U/S, labs)? Why? @ -[None] What meds were considered but not given or refused? Why? @ -[None] Did you discuss the management of the patient with other professionals (professionals i.e. , PA, SSIS ETL DEVELOPER, lab, RT, psych nurse, social science professor, customer sales consultant, teacher, air antisubmarine officer, case briefer)? Give summary @ -[No] Was smoking cessation discussed for >3mins.? @ -[No] Was critical care preformed (if so, how long)? @ -[No] Were there social determinants of health that impacted care today? How? (Homelessness, low income, unemployed, alcoholism, drug addiction, transportation, low edu. Level, literacy, decrease access to med. care, correction, rehab)? @ -[No] Was there de-escalation of care discussed even if they declined (Discuss DNR or withdrawal of care, Hospice)? DNR status @ -[No] What co-morbidities impacted this encounter? (DM, HTN, Smoking, COPD, CAD, Cancer, CVA, ARF, Chemo, Hep., AIDS, mental health diagnosis, sleep apnea, morb id obesity)? @ -[None] Was patient admitted / discharged? Hospital course, mention meds given and ro nerissa, prescriptions, significant lab abnormalities, going to OR and other pertinent info. @ -[hospital course] Undiagnosed new problem with uncertain prognosis? @ -[No] Drug Therapy requiring intensive monitoring for toxicity (Heparin, Nitro, Insulin, Cardizem)? @ -[No] Were any procedures done? @ -[No] Diagnosis/symptom? @ -[default] Acute, or Chronic, or Acute on Chronic? @ -Acute Uncomplicated (without systemic symptoms) or Complicated (systemic symptoms)? @ -Complicated Side effects of treatment? @ -[No] Exacerbation, Progression, or Severe Exacerbation? @ -[No] Poses a threat to life or bodily function? How? (Chest pain, USA, MA, pneumonia, PE, COPD, DKA, ARF, appy, cholecystitis, CVA, Diverticulitis, Homicidal, Suicidal, threat to staff... and all critical care pts) @ -[No] - Lab Data Result diagrams: 01/08/25 19:38 01/08/25 19:38 Lab Results 01/08/25 01/08/25 01/08/25 Range/Units 19:38 19:38 19:38 WBC 6.98 (4.50-10.00) 10*3/uL RBC 5.22 H (4.10-5.20) 10*6/uL Hgb 14.8 (12.0-15.0) g/dL Hct 44.8 (37.2-46.3) % MCV 85.8 (80.0-97.0) fL MCH 28.4 (27.0-32.0) pg MCHC 33.0 (32.0-37.0) g/dL Plt Count 181 (140-440) 10*3/uL MPV 9.0 L (9.5-12.2) fL Immature Gran % (Auto) 0.3 % Neutrophils % 72.5 % Lymphocytes % 19.5 % Monocytes % 5.4 % Eosinophils % 1.7 % Basophils % 0.6 % Immature Gran # 0.02 (0.00-0.04) 10*3/uL Neutrophils # 5.06 (1.80-7.70) 10*3/uL Lymphocytes # 1.36 (0.90-5.00) 10*3/uL Monocytes # 0.38 (0.20-1.00) 10*3/uL Eosinophils # 0.12 (0.04-0.35) 10*3/uL Basophils # 0.04 (0.00-0.10) 10*3/uL PT (10.0-12.5) sec INR (<1.2) APTT (22.0-30.0) sec Sodium 137 (137-145) mmol/L Potassium 4.2 (3.5-5.1) mmol/L Chloride 101 (98-107) mmol/L Carbon Dioxide 23 (22-30) mmol/L Anion Gap 13 mmol/L BUN 19 H (7-17) mg/dL Creatinine 1.06 H (0.52-1.04) mg/dL Est GFR (CKD-EPI)AfAm 68 (>60 ml/min/1.73 sqM) Est GFR (CKD-EPI)NonAf 59 (>60 ml/min/1.73 sqM) Glucose 178 H (74-99) mg/dL POC Glucose (mg/dL) (70-110) mg/dL POC Glu [employer] ID Calcium 9.3 (8.4-10.2) mg/dL Phosphorus 4.5 (2.5-4.5) mg/dL Magnesium 1.6 (1.6-2.3) mg/dL Total Bilirubin 0.6 (0.2-1.3) mg/dL AST 25 (14-36) U/L ALT 22 (4-34) U/L Alkaline Phosphatase 71 (38-126) U/L Troponin I (0.000-0.034) ng/mL Total Protein 7.9 (6.3-8.2) g/dL Albumin 4.5 (3.5-5.0) g/dL Lipase 238 (23-300) U/L Urine Color Colorless Urine Appearance Clear (Clear) Urine pH 5.0 (5.0-8.0) Ur Specific Wake 1.017 (1.001-1.035) Urine Protein Negative (Negative) Urine Glucose (UA) 4+ H (Negative) Urine Ketones Negative (Negative) Urine Blood Negative (Negative) Urine Nitrite Negative (Negative) Urine Bilirubin Negative (Negative) Urine Urobilinogen <2.0 (<2.0) mg/dL Ur Leukocyte Esterase Large H (Negative) Urine RBC 2 (0-5) /hpf Urine WBC 34 H (0-5) /hpf Urine WBC Clumps Rare H (None) /hpf Ur Squamous Epith Cells 4 (0-4) /hpf Hyaline Casts 1 (0-2) /lpf Urine Mucus Rare H (None) /hpf Urine Yeast (Budding) Rare H (None) /hpf Influenza Type A (PCR) (Not Detectd) Influenza Type B (PCR) (Not Detectd) RSV (PCR) (Not Detectd) SARS-CoV-2 (PCR) (Not Detectd) 01/08/25 01/08/25 01/08/25 Range/Units 19:38 19:38 19:38 WBC (4.50-10.00) 10*3/uL RBC (4.10-5.20) 10*6/uL Hgb (12.0-15.0) g/dL Hct (37.2-46.3) % MCV (80.0-97.0) fL MCH (27.0-32.0) pg MCHC (32.0-37.0) g/dL Plt Count (140-440) 10*3/uL MPV (9.5-12.2) fL Immature Gran % (Auto) % Neutrophils % % Lymphocytes % % Monocytes % % Eosinophils % % Basophils % % Immature Gran # (0.00-0.04) 10*3/uL Neutrophils # (1.80-7.70) 10*3/uL Lymphocytes # (0.90-5.00) 10*3/uL Monocytes # (0.20-1.00) 10*3/uL Eosinophils # (0.04-0.35) 10*3/uL Basophils # (0.00-0.10) 10*3/uL PT 10.9 (10.0-12.5) sec INR 1.0 (<1.2) APTT 23.2 (22.0-30.0) sec Sodium (137-145) mmol/L Potassium (3.5-5.1) mmol/L Chloride (98-107) mmol/L Carbon Dioxide (22-30) mmol/L Anion Gap mmol/L BUN (7-17) mg/dL Creatinine (0.52-1.04) mg/dL Est GFR (CKD-EPI)AfAm (>60 ml/min/1.73 sqM) Est GFR (CKD-EPI)NonAf (>60 ml/min/1.73 sqM) Glucose (74-99) mg/dL POC Glucose (mg/dL) (70-110) mg/dL POC Glu [employer] ID Calcium (8.4-10.2) mg/dL Phosphorus (2.5-4.5) mg/dL Magnesium (1.6-2.3) mg/dL Total Bilirubin (0.2-1.3) mg/dL AST (14-36) U/L ALT (4-34) U/L Alkaline Phosphatase (38-126) U/L Troponin I <0.012 (0.000-0.034) ng/mL Total Protein (6.3-8.2) g/dL Albumin (3.5-5.0) g/dL Lipase (23-300) U/L Urine Color Urine Appearance (Clear) Urine pH (5.0-8.0) Ur Specific Wake (1.001-1.035) Urine Protein (Negative) Urine Glucose (UA) (Negative) Urine Ketones (Negative) Urine Blood (Negative) Urine Nitrite (Negative) Urine Bilirubin (Negative) Urine Urobilinogen (<2.0) mg/dL Ur Leukocyte Esterase (Negative) Urine RBC (0-5) /hpf Urine WBC (0-5) /hpf Urine WBC Clumps (None) /hpf Ur Squamous Epith Cells (0-4) /hpf Hyaline Casts (0-2) /lpf Urine Mucus (None) /hpf Urine Yeast (Budding) (None) /hpf Influenza Type A (PCR) Not Detected (Not Detectd) Influenza Type B (PCR) Not Detected (Not Detectd) RSV (PCR) Not Detected (Not Detectd) SARS-CoV-2 (PCR) Not Detected (Not Detectd) 01/08/25 Range/Units 20:21 WBC (4.50-10.00) 10*3/uL RBC (4.10-5.20) 10*6/uL Hgb (12.0-15.0) g/dL Hct (37.2-46.3) % MCV (80.0-97.0) fL MCH (27.0-32.0) pg MCHC (32.0-37.0) g/dL Plt Count (140-440) 10*3/uL MPV (9.5-12.2) fL Immature Gran % (Auto) % Neutrophils % % Lymphocytes % % Monocytes % % Eosinophils % % Basophils % % Immature Gran # (0.00-0.04) 10*3/uL Neutrophils # (1.80-7.70) 10*3/uL Lymphocytes # (0.90-5.00) 10*3/uL Monocytes # (0.20-1.00) 10*3/uL Eosinophils # (0.04-0.35) 10*3/uL Basophils # (0.00-0.10) 10*3/uL PT (10.0-12.5) sec INR (<1.2) APTT (22.0-30.0) sec Sodium (137-145) mmol/L Potassium (3.5-5.1) mmol/L Chloride (98-107) mmol/L Carbon Dioxide (22-30) mmol/L Anion Gap mmol/L BUN (7-17) mg/dL Creatinine (0.52-1.04) mg/dL Est GFR (CKD-EPI)AfAm (>60 ml/min/1.73 sqM) Est GFR (CKD-EPI)NonAf (>60 ml/min/1.73 sqM) Glucose (74-99) mg/dL POC Glucose (mg/dL) 161 H (70-110) mg/dL POC Glu [employer] ID Ariana Verdin Calcium (8.4-10.2) mg/dL Phosphorus (2.5-4.5) mg/dL Magnesium (1.6-2.3) mg/dL Total Bilirubin (0.2-1.3) mg/dL AST (14-36) U/L ALT (4-34) U/L Alkaline Phosphatase (38-126) U/L Troponin I (0.000-0.034) ng/mL Total Protein (6.3-8.2) g/dL Albumin (3.5-5.0) g/dL Lipase (23-300) U/L Urine Color Urine Appearance (Clear) Urine pH (5.0-8.0) Ur Specific Wake (1.001-1.035) Urine Protein (Negative) Urine Glucose (UA) (Negative) Urine Ketones (Negative) Urine Blood (Negative) Urine Nitrite (Negative) Urine Bilirubin (Negative) Urine Urobilinogen (<2.0) mg/dL Ur Leukocyte Esterase (Negative) Urine RBC (0-5) /hpf Urine WBC (0-5) /hpf Urine WBC Clumps (None) /hpf Ur Squamous Epith Cells (0-4) /hpf Hyaline Casts (0-2) /lpf Urine Mucus (None) /hpf Urine Yeast (Budding) (None) /hpf Influenza Type A (PCR) (Not Detectd) Influenza Type B (PCR) (Not Detectd) RSV (PCR) (Not Detectd) SARS-CoV-2 (PCR) (Not Detectd) Disposition Clinical Impression: UTI (urinary tract infection), Abdominal wall pain in left flank Disposition: HOME SELF-CARE Condition: Fair Instructions (If sedation given, give patient instructions): Abdominal Pain (ED), Urinary Tract Infection in Women (ED) Additional Instructions: Increase water and cranberry juice intake. Alternate Tylenol/Motrin every 4 hours for pain. Follow-up with primary care for any ongoing or worsening symptoms. Prescriptions: Nitrofurantoin Monohyd/M-Cryst [Nitrofurantoin Monohyd/M-Cryst 100 mg] 100 mg PO BID #10 cap Is patient prescribed a controlled substance at d/c from ED?: No Referrals: Cuca Iqbal MD [Primary Care Provider] - 1-2 days Time of Disposition: 22:35
[2025-01-08] MEDS: MORPHINE SULFATE 4 MG/ML SYRINGE IVP STA (20:02)
[2025-01-08 20:10] LABS: Basophils # (A) 0.04 10*3/uL (0.00-0.10); Basophils % (A) 0.6 %; Eosinophils # (A) 0.12 10*3/uL (0.04-0.35); Eosinophils % (A) 1.7 %; HCT 44.8 % (37.2-46.3); HGB 14.8 g/dL (12.0-15.0); Lymphocytes # (A) 1.36 10*3/uL (0.90-5.00); Lymphocytes % (A) 19.5 %; MCH 28.4 pg (27.0-32.0); MCV 85.8 fL (80.0-97.0); Monocytes # (A) 0.38 10*3/uL (0.20-1.00); Monocytes % (A) 5.4 %; Neutrophils # (A) 5.06 10*3/uL (1.80-7.70); Neutrophils % (A) 72.5 %; Platelet Count 181 10*3/uL (140-440); RBC 5.22 10*6/uL (4.10-5.20); RDW 14.6 % (11.5-14.5); WBC 6.98 10*3/uL (4.50-10.00)
--- NOTE | 2025-01-08 20:12 | XR ---
EXAMINATION TYPE: XR chest 2V DATE OF EXAM: 01/08/2025 8:09 PM COMPARISON: 11/23/2024 CLINICAL INDICATION: Female, 54 years old with history of Chills, history of COPD: Shortness of breat h TECHNIQUE: XR chest 2V views of the chest are obtained. FINDINGS: Scattered senescent parenchymal changes noted. Hyperinflation compatible with COPD. No evidence for infiltrate. No evidence for atelectasis. Heart size is stable. Mediastinal structures are stable and grossly unremarkable. No evidence for hilar prominence. Degenerative changes dorsal spine. IMPRESSION: 1. No evidence for acute pulmonary disease. [facility], , 01/08/2025 8:10 PM
[2025-01-08] MEDS: MORPHINE SULFATE 2 MG/ML SYRINGE IVP STA (20:13)
[2025-01-08] MEDS: SODIUM CHLORIDE 0.9% 1,000 ML IV STA (20:15)
[2025-01-08 20:23] LABS: Glucose,Whole Blood 161 mg/dL (70-110)
[2025-01-08 20:38] LABS: Partial Thromboplastin Time 23.2 sec (22.0-30.0); Prothrombin Time 10.9 sec (10.0-12.5)
[2025-01-08 20:39] LABS: Appearance,Urine Clear (Clear); Bilirubin,Urine Negative (Negative); Blood,Urine Negative (Negative); Budding Yeast,Urine Rare /hpf; Color,Urine Colorless; Glucose,Urine (UA) 4+ (Negative); Hyaline Casts,Urine 1 /lpf (0-2); Ketones,Urine Negative (Negative); Leukocyte Esterase,Urine Large (Negative); Mucus,Urine Rare /hpf; Nitrite,Urine Negative (Negative); Protein,Urine Negative (Negative); RBC,Urine 2 /hpf (0-5); Specific Gravity,Urine 1.017 (1.001-1.035); Squamous Epithelial Cell,Urine 4 /hpf (0-4); Urobilinogen,Urine <2.0 mg/dL (<2.0); WBC,Urine 34 /hpf (0-5)
[2025-01-08 20:42] LABS: ALT 22 U/L (4-34); AST 25 U/L (14-36); African American GFR (CKD) 68 (>60 ml/min/1.73 sqM); Albumin 4.5 g/dL (3.5-5.0); Alkaline Phosphatase 71 U/L (38-126); Anion Gap 13 mmol/L; Blood Urea Nitrogen 19 mg/dL (7-17); Calcium 9.3 mg/dL (8.4-10.2); Carbon Dioxide 23 mmol/L (22-30); Chloride 101 mmol/L (98-107); Glucose 178 mg/dL (74-99); Lipase 238 U/L (23-300); Magnesium 1.6 mg/dL (1.6-2.3); Non-African American GFR(CKD) 59 (>60 ml/min/1.73 sqM); Phosphorus 4.5 mg/dL (2.5-4.5); Potassium 4.2 mmol/L (3.5-5.1); Sodium 137 mmol/L (137-145); Total Bilirubin 0.6 mg/dL (0.2-1.3); Total Protein 7.9 g/dL (6.3-8.2)
[2025-01-08 21:12] LABS: Influenza A Not Detected (Not Detectd); Influenza B Not Detected (Not Detectd); RSV Not Detected (Not Detectd)
--- NOTE | 2025-01-08 21:34 | CT ---
EXAMINATION TYPE: CT abdomen pelvis w con DATE OF EXAM: 01/08/2025 9:27 PM COMPARISON: None. CLINICAL INDICATION: Female, 54 years old with history of LUQ pain, Pt states having cold chills and not feeling well all day. LUQ pain. TECHNIQUE:CT scan of the abdomen and pelvis is performed without Oral Contrast and with IV Contrast, patient injected with 100ml mL of Isovue 300. CT DLP: 1906.1 mGycm, Automated exposure control for dose reduction was used. FINDINGS: LUNG BASES-: No visible nodule. No infiltrate. LIVER/GB: The gallbladder is surgically absent. Mild hepatomegaly and hepatic steatosis. No space occ upying hepatic lesion. Biliary tree is of normal caliber. PANCREAS: No inflammation. No distinct mass. SPLEEN: No splenic enlargement. No lesion seen. ADRENALS: No nodule. No thickening. KIDNEYS/BLADDER: No hydronephrosis. No nephrolithiasis. No distinct renal mass. Urinary bladder g rossly unremarkable. BOWEL: Normal appendix. Normal bowel caliber. No inflammation. GENITAL ORGANS: No gross abnormality. LYMPH NODES: No greater than 1cm abdominal or pelvic lymph nodes are appreciated. AORTA: No significant abnormality. OSSEOUS STRUCTURES: No significant abnormality is seen. OTHER: There is thickening of the left lateral abdominal wall musculature which could be related to s train. No definite hematoma appreciated. IMPRESSION: 1. No acute intra-abdominal or intrapelvic process. 2.There is thickening of the left lateral abdominal wall musculature which could be related to strain . No definite hematoma appreciated. [facility], , 01/08/2025 9:32 PM
[2025-01-08] MEDS: NITROFURANTOIN MONOHYD/M-CRYST 100 MG CAP PO STA (22:47)
[2025-01-08 22:49] VITALS: BP 106/73; PULSE 97; RESP 18; TEMP 98
== END 2025-01-08 22:50 | disposition home or self-care (01) ==
LOC: EC 18:30
DX: N39.0 Urinary tract infection, site not specified (principal); R10.9 Unspecified abdominal pain; Z87.891 Personal history of nicotine dependence; Z88.0 Allergy status to penicillin; Z88.1 Allergy status to other antibiotic agents; Z88.2 Allergy status to sulfonamides; Z88.5 Allergy status to narcotic agent; Z88.6 Allergy status to analgesic agent; Z91.09 Other allergy status, other than to drugs and biological substances; Z91.041 Radiographic dye allergy status; Z88.8 Allergy status to other drugs, medicaments and biological substances
CPT/HCPCS: 36415; 93005; 80053; 83605; 83690; 83735; 84100; 84484; 85025; 85610; 85730; 81001; 87086; 87636; 71046; 74177; 99284; 96374; 96361; J2270; Q9967

== ENCOUNTER 2025-01-26 14:16 | Emergency (ER) | payer OTHER ==
--- NOTE | 2025-01-26 15:04 | ED ---
Abdominal Pain HPI - General Source: patient, RN notes reviewed, old records reviewed Mode of arrival: wheelchair Limitations: no limitations <Yesy Thomason - Last Filed: 01/26/25 15:05> <Rima Queen - Last Filed: 01/26/25 18:48> - General Chief Complaint: Abdominal Pain Stated Complaint: R Abd-Groin Time Seen by Provider: 01/26/25 14:45 - History of Present Illness Initial Comments: 54 year old female presenting to the ER for evaluation of abdominal pain. She states that have been intermittent over the past couple of months. Patient was seen here on 01 08 25 for similar complaint and diagnosed with a UTI and a muscle strain. She completed antibiotics. She reports continued pain. She states pain is worse with range of motion of right hip. She also reports pain radiates to her lower right back. She denies any injuries to this area. No rashes or wounds. No fevers, chills, diarrhea, constipation, urinary complaints. Patient does report pain makes her feel nauseous. Patient has taken prescribed oxycodone without relief of symptoms. Prior cholecystectomy. No history of ulcerative colitis or Crohn's disease or diverticulitis.Patient followed up with her PCP who stated symptoms may be related to Mounjaro use. (Yesy Thomason) - Related Data Home Medications Medication Instructions Recorded Confirmed Montelukast [Singulair] 10 mg PO HS 04/16/17 11/23/24 PARoxetine HCL [Paxil] 40 mg PO DAILY 12/27/18 11/23/24 Empagliflozin [Jardiance] 10 mg PO DAILY 01/13/23 11/23/24 Insulin Glargine,Hum.rec.anlog 50 units SQ DAILY 01/13/23 11/23/24 [Lantus Solostar Pen] oxyCODONE-APAP 5-325MG [Percocet 1 tab PO TID PRN 01/13/23 11/23/24 5-325 mg] Diclofenac Sodium Gel [Voltaren 1% 1 applic TOPICAL BID PRN 01/14/24 11/23/24 Gel] Levothyroxine Sodium 150 mcg PO DAILY 01/14/24 11/23/24 metFORMIN HCL 1,000 mg PO BID-W/MEALS 01/14/24 11/23/24 Ferrous Sulfate [Iron (65 MG 325 mg PO DAILY 02/20/24 11/23/24 Elemental)] Amitriptyline HCl [Elavil] 25 mg PO HS 11/23/24 11/23/24 Losartan [Cozaar] 50 mg PO DAILY 11/23/24 11/23/24 Metoprolol Tartrate [Lopressor] 75 mg PO BID 11/23/24 11/23/24 Rivaroxaban [Xarelto] 20 mg PO W/SUPPER 11/23/24 11/23/24 Tirzepatide [Mounjaro] 5 mg SQ WE 11/23/24 11/23/24 Previous Rx's Medication Instructions Recorded Amiodarone [Cordarone] 200 mg PO Q48H #0 11/24/24 Aspirin 81 mg PO DAILY #30 tab 11/24/24 Nitrofurantoin Monohyd/M-Cryst 100 mg PO BID #10 cap 01/08/25 [Nitrofurantoin Monohyd/M-Cryst 100 mg] Allergies Allergy/AdvReac Type Severity Reaction Status Date / Time adhesive Allergy red skin Verified 01/26/25 14:20 ciprofloxacin [From Cipro] Allergy Itching Verified 01/26/25 14:20 hydroxyzine Allergy Itching Verified 01/26/25 14:20 Iodinated Contrast Media Allergy Itching Verified 01/26/25 14:20 [Iodinated Contrast Media - IV Dye] prednisone Allergy Rapid Verified 01/26/25 14:20 Heart Rate, Panic attack Sulfa (Sulfonamide Allergy Anaphylaxis Verified 01/26/25 14:20 Antibiotics) verapamil Allergy Anaphylaxis Verified 01/26/25 14:20 celecoxib [From Celebrex] AdvReac CAUSES GI Verified 01/26/25 14:20 BLEEDING cephalexin monohydrate AdvReac Vomiting Verified 01/26/25 14:20 [From Keflex] diphenhydramine AdvReac arm burned Verified 01/26/25 14:20 [From Benadryl] when given IV Penicillins AdvReac Anaphylaxis Verified 01/26/25 14:20 tramadol AdvReac Nausea & Verified 01/26/25 14:20 Vomiting Review of Systems ROS Other: All systems not noted in ROS Statement are negative. <Yesy Thomason - Last Filed: 01/26/25 15:05> ROS Other: All systems not noted in ROS Statement are negative. <Rima Queen Last Filed: 01/26/25 18:48> ROS Statement: Those systems with pertinent positive or pertinent negative responses have been documented in the HPI. Past Medical History Past Medical History: Asthma, Chest Pain / Angina, COPD, CVA/TIA, Diabetes Mellitus, Hyperlipidemia, Hypertension Additional Past Medical History / Comment(s): neuoropathy, RT CATARACT TIA History of Any Multi-Drug Resistant Organisms: None Reported Past Surgical History: Adenoidectomy, Cholecystectomy, Heart Catheterization With Stent, Tonsillectomy Additional Past Surgical History / Comment(s): D&C, carpal tunnel surgery left , LT ARM SX FOR "PINCHED NERVE", LT THUMB TRIGGER FINGER, rae neuroma removed left foot, heart cath 2015 , right ankle fx 01/2018 no surgery , LT CATARACT REMOVED WITH LENS IMPLANT thyroidectomy Past Anesthesia/Blood Transfusion Reactions: Previous Problems w/ Anesthesia, Motion Sickness Additional Past Anesthesia/Blood Transfusion Reaction / Comment(s): difficulty waking from anesthesia Date of Last Stent Placement:: 2022 Past Psychological History: Anxiety, Depression, Panic Disorder Smoking Status: Former smoker Past Alcohol Use History: None Reported Past Drug Use History: None Reported - Past Family History Father Family Medical History: Cancer Additional Family Medical History / Comment(s): skin Mother Family Medical History: Diabetes Mellitus, Hypertension, Osteoarthritis (OA) Additional Family Medical History / Comment(s): MURMUR Sister(s) Family Medical History: Cancer Additional Family Medical History / Comment(s): ovarian <Yesy Thomason - Last Filed: 01/26/25 15:05> General Exam Limitations: no limitations General appearance: alert, in no apparent distress Respiratory exam: Present: normal lung sounds bilaterally. Absent: respiratory distress, wheezes, rales, rhonchi, stridor Cardiovascular Exam: Present: regular rate, normal rhythm, normal heart sounds. Absent: systolic murmur, diastolic murmur, rubs, gallop, clicks GI/Abdominal exam: Present: soft, tenderness (right suprapubic abdominal pannus), normal bowel sounds Back exam: Present: normal inspection, tenderness (right pelvic gurdle) Neurological exam: Present: alert, oriented X3, CN II-XII intact Skin exam: Present: warm, dry, intact, normal color. Absent: rash <Yesy Thomason - Last Filed: 01/26/25 15:05> Course Vital Signs 01/26/25 01/26/25 14:18 15:20 Temperature 97.9 F Pulse Rate 94 84 Respiratory 17 19 Rate Blood Pressure 155/95 114/72 O2 Sat by Pulse 99 94 L Oximetry Medical Decision Making - Lab Data Result diagrams: 01/26/25 15:09 01/26/25 15:09 <Rima Queen - Last Filed: 01/26/25 18:48> - Medical Decision Making Was pt. sent in by a medical professional or institution (, PA, RN PRIVATE DUTY, urgent care, hospital, or correction...) When possible be specific @ -No Did you speak to anyone other than the patient for history (EMS, parent, family, police, friend...)? What history was obtained from this source @ -No Did you review nursing and triage notes (agree or disagree)? Why? @ -I reviewed and agree with nursing and triage notes Were old charts reviewed (outside hosp., previous admission, EMS record, old EKG, old radiological studies, urgent care reports/EKG's, correction records)? Report findings @ -Reviewed patient's urine culture that was completed on 01/08/2025 which revealed no growth of bacteria Differential Diagnosis (chest pain, altered mental status, abdominal pain women, abdominal pain men, vaginal bleeding, weakness, fever, dyspnea, syncope, headache, dizziness, GI bleed, back pain, seizure, CVA, palpatations, mental health, musculoskeletal)? @ -Differential Abdominal Pain Women: Appendicitis, Cholecystitis, diverticulosis, ischemic bowel, pancreatitis, hepatitis, UTI, gastroenteritis, AAA, incarcerated hernia, bowel obstruction, constipation, inflammatory bowel, hepatitis, peptic ulcer disease, splenic infarction, perforated viscus, vulvitis, ovarian torsion, PID, kidney stone, placenta abruption, this is not meant to be an all-inclusive list EKG interpreted by me (3pts min.). @ -None X-rays interpreted by me (1pt min.). @ -None done CT interpreted by me (1pt min.). @ -None done U/S interpreted by me (1pt. min.). @ Ultrasound of the kidneys, ureters, bladder no hydronephrosis or nephrolithiasis Transvaginal ultrasound no evidence for acute process. What testing was considered but not performed or refused? (CT, X-rays, U/S, labs)? Why? @ -None What meds were considered but not given or refused? Why? @ -None Did you discuss the management of the patient with other professionals (professionals i.e. , PA, RN PRIVATE DUTY, lab, RT, psych nurse, dialysis social worker, family lawyer, teacher, logistics officer, housing case manager)? Give summary @ -No Was smoking cessation discussed for >3mins.? @ -No Was critical care preformed (if so, how long)? @ -No Were there social determinants of health that impacted care today? How? (Homelessness, low income, unemployed, alcoholism, drug addiction, tra nsportation, low edu. Level, literacy, decrease access to med. care, half-way, rehab)? @ -No Was there de-escalation of care discussed even if they declined (Discuss DNR or withdrawal of care, Hospice)? DNR status @ -No What co-morbidities impacted this encounter? (DM, HTN, Smoking, COPD, CAD, Cancer, CVA, ARF, Chemo, Hep., AIDS, mental health diagnosis, sleep apnea, morbid obesity)? @ -None Was patient admitted / discharged? Hospital course, mention meds given and route, prescriptions, significant lab abnormalities, going to OR and other pertinent info. @ -Discharge. 54-year-old female presents emergency room with complaints of abdominal pain most notable in the suprapubic region. Patient workup was initiated by one of my colleagues and was signed out to me pending urinalysis and disposition. As stated above patient has been having suprapubic tenderness with no associated urinary complaints, nausea or vomiting. Urinalysis is concerning for infection including blood, leukocyte esterase, red cells, white cells and bacteria however patient has not been having urinary symptoms and therefore urine will be sent for culture for further evaluation. Patient does have suprapubic/mons pubic tenderness to palpation with no overlying masses palpable. Patient is evaluated for ultrasound for further evaluation. Ultrasound imaging is unremarkable. Recommend the patient follow-up for unspecified suprapubic/abdominal pain for further evaluation. Return parameters discussed. Case discussed with Dr. Valdez Undiagnosed new problem with uncertain prognosis? @ -No Drug Therapy requiring intensive monitoring for toxicity (Heparin, Nitro, Insulin, Cardizem)? @ -No Were any procedures done? @ -No Diagnosis/symptom? @ -Unspecified suprapubic abdominal pain Acute, or Chronic, or Acute on Chronic? @ -Acute Uncomplicated (without systemic symptoms) or Complicated (systemic symptoms)? @ -Uncomplicated Side effects of treatment? @ -No Exacerbation, Progression, or Severe Exacerbation? @ -No Poses a threat to life or bodily function? How? (Chest pain, [place], [place], pneumonia, PE, COPD, DKA, ARF, appy, cholecystitis, CVA, Diverticulitis, Homicidal, Suicidal, threat to staff... and all critical care pts) @ -No (Rima Queen) - Lab Data Lab Results 01/26/25 01/26/25 01/26/25 Range/Units 15:09 15:09 15:09 WBC 6.99 (4.50-10.00) 10*3/uL RBC 5.05 (4.10-5.20) 10*6/uL Hgb 14.2 (12.0-15.0) g/dL Hct 43.3 (37.2-46.3) % MCV 85.7 (80.0-97.0) fL MCH 28.1 (27.0-32.0) pg MCHC 32.8 (32.0-37.0) g/dL Plt Count 148 (140-440) 10*3/uL MPV 9.1 L (9.5-12.2) fL Immature Gran % (Auto) 0.3 % Neutrophils % 71.1 % Lymphocytes % 19.2 % Monocytes % 7.4 % Eosinophils % 1.6 % Basophils % 0.4 % Immature Gran # 0.02 (0.00-0.04) 10*3/uL Neutrophils # 4.97 (1.80-7.70) 10*3/uL Lymphocytes # 1.34 (0.90-5.00) 10*3/uL Monocytes # 0.52 (0.20-1.00) 10*3/uL Eosinophils # 0.11 (0.04-0.35) 10*3/uL Basophils # 0.03 (0.00-0.10) 10*3/uL Sodium 138 (137-145) mmol/L Potassium 4.7 (3.5-5.1) mmol/L Chloride 105 (98-107) mmol/L Carbon Dioxide 19 L (22-30) mmol/L Anion Gap 14 mmol/L BUN 25 H (7-17) mg/dL Creatinine 0.99 (0.52-1.04) mg/dL Est GFR (CKD-EPI)AfAm 74 (>60 ml/min/1.73 sqM) Est GFR (CKD-EPI)NonAf 64 (>60 ml/min/1.73 sqM) Glucose 149 H (74-99) mg/dL Plasma Lactic Acid Wil 1.9 (0.7-2.0) mmol/L Calcium 9.8 (8.4-10.2) mg/dL Total Bilirubin 0.7 (0.2-1.3) mg/dL AST 36 (14-36) U/L ALT 29 (4-34) U/L Alkaline Phosphatase 71 (38-126) U/L Total Protein 7.9 (6.3-8.2) g/dL Albumin 4.6 (3.5-5.0) g/dL Lipase 172 (23-300) U/L Urine Color Urine Appearance (Clear) Urine pH (5.0-8.0) Ur Specific [place] (1.001-1.035) Urine Protein (Negative) Urine Glucose (UA) (Negative) Urine Ketones (Negative) Urine Blood (Negative) Urine Nitrite (Negative) Urine Bilirubin (Negative) Urine Urobilinogen (<2.0) mg/dL Ur Leukocyte Esterase (Negative) Urine RBC (0-5) /hpf Urine WBC (0-5) /hpf Ur Squamous Epith Cells (0-4) /hpf Urine Bacteria (None) /hpf Urine Mucus (None) /hpf 01/26/25 Range/Units 16:12 WBC (4.50-10.00) 10*3/uL RBC (4.10-5.20) 10*6/uL Hgb (12.0-15.0) g/dL Hct (37.2-46.3) % MCV (80.0-97.0) fL MCH (27.0-32.0) pg MCHC (32.0-37.0) g/dL Plt Count (140-440) 10*3/uL MPV (9.5-12.2) fL Immature Gran % (Auto) % Neutrophils % % Lymphocytes % % Monocytes % % Eosinophils % % Basophils % % Immature Gran # (0.00-0.04) 10*3/uL Neutrophils # (1.80-7.70) 10*3/uL Lymphocytes # (0.90-5.00) 10*3/uL Monocytes # (0.20-1.00) 10*3/uL Eosinophils # (0.04-0.35) 10*3/uL Basophils # (0.00-0.10) 10*3/uL Sodium (137-145) mmol/L Potassium (3.5-5.1) mmol/L Chloride (98-107) mmol/L Carbon Dioxide (22-30) mmol/L Anion Gap mmol/L BUN (7-17) mg/dL Creatinine (0.52-1.04) mg/dL Est GFR (CKD-EPI)AfAm (>60 ml/min/1.73 sqM) Est GFR (CKD-EPI)NonAf (>60 ml/min/1.73 sqM) Glucose (74-99) mg/dL Plasma Lactic Acid Wil (0.7-2.0) mmol/L Calcium (8.4-10.2) mg/dL Total Bilirubin (0.2-1.3) mg/dL AST (14-36) U/L ALT (4-34) U/L Alkaline Phosphatase (38-126) U/L Total Protein (6.3-8.2) g/dL Albumin (3.5-5.0) g/dL Lipase (23-300) U/L Urine Color Colorless Urine Appearance Cloudy H (Clear) Urine pH 5.5 (5.0-8.0) Ur Specific [place] 1.026 (1.001-1.035) Urine Protein Trace H (Negative) Urine Glucose (UA) 4+ H (Negative) Urine Ketones Negative (Negative) Urine Blood Trace H (Negative) Urine Nitrite Negative (Negative) Urine Bilirubin Negative (Negative) Urine Urobilinogen <2.0 (<2.0) mg/dL Ur Leukocyte Esterase Large H (Negative) Urine RBC 12 H (0-5) /hpf Urine WBC 64 H (0-5) /hpf Ur Squamous Epith Cells 12 H (0-4) /hpf Urine Bacteria Rare H (None) /hpf Urine Mucus Rare H (None) /hpf Disposition <Stariha,Yesy - Last Filed: 01/26/25 15:05> Is patient prescribed a controlled substance at d/c from ED?: No Time of Disposition: 18:38 <Rima Queen - Last Filed: 01/26/25 18:48> Clinical Impression: Suprapubic abdominal pain Disposition: HOME SELF-CARE Condition: Stable Instructions (If sedation given, give patient instructions): Abdominal Pain (E D) Additional Instructions: Please return to the Emergency Department if symptoms worsen or any other concerns. Referrals: Cuca Iqbal MD [Primary Care Provider] - 1-2 days
[2025-01-26 15:16] LABS: Basophils # (A) 0.03 10*3/uL (0.00-0.10); Basophils % (A) 0.4 %; Eosinophils # (A) 0.11 10*3/uL (0.04-0.35); Eosinophils % (A) 1.6 %; HCT 43.3 % (37.2-46.3); HGB 14.2 g/dL (12.0-15.0); Lymphocytes # (A) 1.34 10*3/uL (0.90-5.00); Lymphocytes % (A) 19.2 %; MCH 28.1 pg (27.0-32.0); MCHC 32.8 g/dL (32.0-37.0); MCV 85.7 fL (80.0-97.0); Mean Platelet Volume 9.1 fL (9.5-12.2); Monocytes # (A) 0.52 10*3/uL (0.20-1.00); Monocytes % (A) 7.4 %; Neutrophils # (A) 4.97 10*3/uL (1.80-7.70); Neutrophils % (A) 71.1 %; Platelet Count 148 10*3/uL (140-440); RBC 5.05 10*6/uL (4.10-5.20); RDW 14.9 % (11.5-14.5); WBC 6.99 10*3/uL (4.50-10.00)
[2025-01-26 15:23] VITALS: RESP 19
[2025-01-26 15:24] VITALS: PULSE 84
[2025-01-26] MEDS: HYDROmorphone 0.5 MG/0.5 ML SYRINGE IVP STA (15:25)
[2025-01-26] MEDS: SODIUM CHLORIDE 0.9% 1,000 ML IV ONE (15:27)
[2025-01-26 15:28] LABS: ALT 29 U/L (4-34); AST 36 U/L (14-36); African American GFR (CKD) 74 (>60 ml/min/1.73 sqM); Albumin 4.6 g/dL (3.5-5.0); Alkaline Phosphatase 71 U/L (38-126); Anion Gap 14 mmol/L; Blood Urea Nitrogen 25 mg/dL (7-17); Calcium 9.8 mg/dL (8.4-10.2); Carbon Dioxide 19 mmol/L (22-30); Chloride 105 mmol/L (98-107); Glucose 149 mg/dL (74-99); Lipase 172 U/L (23-300); Non-African American GFR(CKD) 64 (>60 ml/min/1.73 sqM); Potassium 4.7 mmol/L (3.5-5.1); Sodium 138 mmol/L (137-145); Total Bilirubin 0.7 mg/dL (0.2-1.3); Total Protein 7.9 g/dL (6.3-8.2)
[2025-01-26] MEDS: ONDANSETRON 4 MG/2 ML VIAL IVP STA (15:28)
[2025-01-26] MEDS: KETOROLAC 15 MG/ML 1 ML VIAL IVP STA ×2 (15:30→18:56)
[2025-01-26 16:40] LABS: Appearance,Urine Cloudy (Clear); Bacteria,Urine Rare /hpf; Bilirubin,Urine Negative (Negative); Blood,Urine Trace (Negative); Color,Urine Colorless; Glucose,Urine (UA) 4+ (Negative); Ketones,Urine Negative (Negative); Leukocyte Esterase,Urine Large (Negative); Mucus,Urine Rare /hpf; Nitrite,Urine Negative (Negative); PH, Urine 5.5 (5.0-8.0); Protein,Urine Trace (Negative); RBC,Urine 12 /hpf (0-5); Specific Gravity,Urine 1.026 (1.001-1.035); Squamous Epithelial Cell,Urine 12 /hpf (0-4); Urobilinogen,Urine <2.0 mg/dL (<2.0); WBC,Urine 64 /hpf (0-5)
--- NOTE | 2025-01-26 18:17 | US ---
EXAMINATION TYPE: US kidneys/renal and bladder DATE OF EXAM: 01/26/2025 COMPARISON: CT 01/08/2025, renal ultrasound 11/16/2018 CLINICAL INDICATION: Female, 54 years old with history of asymptomatic hematuria, suprapubic pain; he maturia. Suprapubic pain TECHNIQUE: Grayscale imaging of the bilateral kidneys and urinary bladder: FINDINGS: EXAM MEASUREMENTS: Right Kidney: 10.2 x 5.0 x 4.3 cm Left Kidney: 11.1 x 4.9 x 4.4 cm Right Kidney: few tiny anechoic appearing areas seen, largest appears exophytic in the inferior pole measuring 1.1 x 0.9 x 1.0cm Left Kidney: wnl as best seen Bladder: unable to visualize, patient recently voided There is no evidence for hydronephrosis at this point in time. No nephrolithiasis is seen. Small co rtical simple appearing cyst involving the right kidney. No solid renal masses are identified. Corti comedullary differentiation is maintained bilaterally. The urinary bladder is nonvisualized due to th e patient recently voiding. IMPRESSION: No hydronephrosis or nephrolithiasis. [facility], , 01/26/2025 6:15 PM
--- NOTE | 2025-01-26 18:20 | US ---
EXAMINATION TYPE: US transvaginal DATE OF EXAM: 01/26/2025 COMPARISON: CT 01/08/2025, pelvic ultrasound 07/06/2018 CLINICAL INDICATION: Female, 54 years old with history of subprapubic/mon pubis tenderness to palpati on; suprapubic pain TECHNIQUE: Transvaginal (TV). Transvaginal sonographic images were medically necessary to better assess the following anatomy: Ovar ies Doppler imaging: Color Doppler Images were obtained. Spectral doppler images were obtained. FINDINGS: Date of LMP: hasnt had period for years EXAM MEASUREMENTS: Uterus: 6.4 x 2.9 x 4.4 cm Endometrial Stripe: 0.3 cm Right Ovary: possible right ovary measuring 1.9 x 1.1 x 1.5 cm Left Ovary: obscured by gas 1. Uterus: Anteverted small 0.3 x 0.2 x 0.3cm anechoic area in the [place] 2. Endometrium: wnl 3. Right Ovary: possible right ovary appears wnl as best seen 4. Left Ovary: unable to visualize due to overlying gas and postmenopausal status 5. Bilateral Adnexa: wnl as best seen 6. Posterior cul-de-sac: wnl Anteverted uterus with lower uterine segment subcentimeter myometrial cyst. Endometrium is within nor mal thickness. Left ovary is not visualized due to ill-defined bowel gas of postmenopausal status. Po ssible right ovary appears within normal limits with normal color flow with normal spectral arterial and venous waveforms. No free fluid. IMPRESSION: 1. No ultrasound evidence for acute pelvic process. 2. Nonvisualization of the left ovary due to overlying bowel gas and patient's postmenopausal status. [facility], , 01/26/2025 6:17 PM
[2025-01-26 18:56] VITALS: BP 112/81; TEMP 98.1
== END 2025-01-26 19:03 | disposition home or self-care (01) ==
LOC: EC 14:16
DX: R10.31 Right lower quadrant pain (principal); Z86.73 Personal history of transient ischemic attack (TIA), and cerebral infarction without residual deficits; Z87.891 Personal history of nicotine dependence; Z88.0 Allergy status to penicillin; Z88.1 Allergy status to other antibiotic agents; Z88.2 Allergy status to sulfonamides; Z88.5 Allergy status to narcotic agent; Z88.6 Allergy status to analgesic agent; Z88.8 Allergy status to other drugs, medicaments and biological substances; Z91.041 Radiographic dye allergy status
CPT/HCPCS: 36415; 80053; 83605; 83690; 85025; 81001; 87086; 93976; 76830; 76770; 99284; 96374; 96375 ×2; 96376; 96361; J2405; J1885; J1171

== ENCOUNTER → 2025-02-14 | Outpatient (CLI) | payer OTHER ==
--- NOTE | 2025-02-14 15:11 | US ---
EXAMINATION TYPE: US extremity nonvasc mass RT DATE OF EXAM: 02/14/2025 COMPARISON: Transvaginal ultrasound 01/26/2025, CT abdomen and pelvis 01/08/2025 CLINICAL INDICATION: Female, 54 years old with history of N94.9 PAIN IN FEMALE GENITALIA; pain in rig ht pubic area. TECHNIQUE: Multiple grayscale ultrasound images of the right lower pelvic region were obtained. FINDINGS/IMPRESSION: Scanned area of concern with no abnormalities seen. [facility], , 02/14/2025 3:09 PM
== END | disposition home or self-care (01) ==
LOC: RADUSWWP 14:47
PROVIDERS: ATTEND Family Medicine
DX: N94.9 Unspecified condition associated with female genital organs and menstrual cycle (principal)